=== PATIENT | male | born 1995 | race Caucasian/White ===

== ENCOUNTER 2019-12-05 21:04 | Emergency (ER) | payer OTHER, SELFPAY ==
[2019-12-05 21:39] VITALS: BP 140/86; BP 154/100; PULSE 106; PULSE 115; RESP 18; TEMP 37; O2SAT 96; O2SAT 98; BMI 29.9
--- NOTE | 2019-12-05 22:16 | PC.NURSE ---
Patient in hallway wandering, psychotic, self dialoguing, reporting he is unsafe here, fixated on [place], religiously occupied. Patient is hydrating well and eating well. Will continue to monitor.
[2019-12-05 22:54] LABS: Amphetamine Screen Urine Not Detected (Not Detect); Barbiturates, Urine Not Detected (Not Detect); Benzodiazepines Screen Urine Not Detected (Not Detect); Cannabinoid Screen Urine Not Detected (Not Detect); Cocaine Screen Urine Not Detected (Not Detect); Opiate Screen Urine Not Detected (Not Detect); Phencyclidine Screen Urine Not Detected (Not Detect)
[2019-12-05 23:50] VITALS: BP 154/102; PULSE 118; RESP 17; TEMP 36.3; O2SAT 97
[2019-12-06] VITALS (7 sets, daily range): BP systolic 135–172; BP diastolic 89–102; PULSE 93–116; RESP 15–20; TEMP 36.1–37; O2SAT 95–99
--- NOTE | 2019-12-06 00:01 | ED_ITS ---
HPI - Psych General Chief Complaint: Psychiatric Symptoms Stated Complaint: CRISIS Time Seen by Provider: 12/05/19 22:54 Source: patient and RN notes reviewed Mode of arrival: EMS Limitations: no limitations History of Present Illness HPI Narrative: patient brought in to the ED for psych evaluation. Patient is extremity psychotic, and preoccupied with himself. Patient having conversation with himself. Patient himself admits to being paranoid and very anxious. Patient denies any suicidal ideation. MD complaint: feels depressed and anxiety Related Data Home Medications Medication Instructions Recorded Confirmed Depakote ER 750 mg PO BID 12/05/19 12/06/19 diphenhydramine HCl [Banophen] 50 mg PO BEDTIME 12/05/19 12/06/19 haloperidol 1 tab PO BEDTIME 12/05/19 12/05/19 hydroxyzine pamoate 1 cap PO Q6H PRN 12/05/19 12/05/19 Allergies Allergy/AdvReac Type Severity Reaction Status Date / Time No Known Allergies Allergy Verified 12/05/19 21:45 [No Known Allergies*] Review of Systems Review of Systems: Yes all other systems are reviewed and are negative Cardiovascular: Cardiovascular: Reports no additional cardiovascular complaints, Denies Abdominal Cramping after Meds, Denies chest pain, Denies chest pain at rest, Denies lightheadedness, Denies dyspnea, Denies dyspnea on exertion, Denies orthopnea and Denies paroxysmal nocturnal dyspnea Respiratory: Respiratory: Reports as per HPI, Reports no additional respiratory complaints, Denies no additional respiratory complaints, Denies change in phlegm color, Denies chest congestion, Denies cough, Denies hemoptysis, Denies excessive phlegm production, Denies pain on inspiration, Denies pain with cough, Denies dyspnea and Denies dyspnea on exertion Gastrointestinal: Gastrointestinal: Reports as per HPI, Reports no additional gastrointestinal complaints, Denies abdominal pain, Denies belching, Denies melena, Denies bloating, Denies hematochezia, Denies change in bowel habits, Denies change in stool character, Denies excessive flatus and Denies diarrhea Psychiatric: Psychiatric: Reports anxiety, Reports depression and Reports paranoia PMFSH Social History Social History Advance Directives: No Advance Directives Information Provided: Yes Physical Exam Vital Signs and I&O and Narrative: Vital Signs and I&O: Vital Signs Temp 97.3 F 12/05/19 23:50 Pulse 118 H 12/05/19 23:50 Resp 17 12/06/19 01:40 BP 154/102 H 12/05/19 23:50 Pulse Ox 97 12/05/19 23:50 Intake & Output 12/05/19 12/05/19 12/06/19 06:59 18:59 06:59 Weight 81.647 kg Body Mass Index 29.9 Const: General: cooperative, healthy appearing and comfortable HENMT: Head: Yes normal to inspection Eyes: General: appearance normal, both eyes and all related structures Chest: Chest palpation & inspection: normal inspection of the chest, normal palpation of entire chest wall, normal inspection of the chest and no crepitus Resp: Effort & Inspection: normal respiratory effort, able to speak in complete sentences, normal respiratory pattern, no audible wheezes, no cough, no grunting, not labored, no segmental paradox chest wall movement and no stridor Auscultation: clear to auscultation bilaterally, no crackles, no rales, no rhonchi, no wheezes and breath sounds present Cardio: Jugular venous distension: no JVD Heart sounds: S1 normal heart s ound present and S2 normal heart sound present GI: Inspection: Yes normal to inspection, No abdominal wall ecchymosis, No Abdominal wall edema, No distended, No incision, No Abdominal panniculus present , No obesity and No scaphoid Palpation (GI): not soft, not firm, nontender, no guarding and not rigid Percussion: Yes normal to percussion Psych: Affect: Anxious affect present Thought process: Flight of ideas present Thought content: Paranoid delusions present and Depressive thoughts present Insight: Limited insight present (Psych) Judgement: Limited judgement present (Psych) Course Course Course Narrative: Patient appears to be in a psychotic state. Will order basic labs, urine, and BHN evaluation placed. Reevaluation(s) Reevaluation #1: patient will have [facility] evaluation in the morning. Awaiting for labs. Patient refused to give labs during the night and states he rather until in the morning MDM - Psych MDM Narrative Medical decision making narrative: patient awaiting BHN evaluation morning. Patient will have labs drawn the morning. Case signed out to Dr. Ramos Lab Data Labs: Lab Results 12/05/19 Range/Units 22:12 Urine Opiates Screen Not Detected (Not Detect) Ur Barbiturates Screen Not Detected (Not Detect) Ur Phencyclidine Scrn Not Detected (Not Detect) Ur Amphetamines Screen Not Detected (Not Detect) U Benzodiazepines Scrn Not Detected (Not Detect) Urine Cocaine Screen Not Detected (Not Detect) U Marijuana (THC) Screen Not Detected (Not Detect) Discharge Plan Discharge Prescriptions: No Action Depakote ER 750 mg tablet 750 mg PO BID RF: 0 haloperidol 5 mg tablet 1 tab PO BEDTIME RF: 0 hydroxyzine pamoate 50 mg capsule 1 cap PO Q6H PRN (Reason: anxiety) RF: 0 diphenhydramine HCl [Banophen] 50 mg Capsule 50 mg PO BEDTIME RF: 0
[2019-12-06] MEDS: LORazepam 1 MG TABLET 2 MG PO (00:20)
[2019-12-06] MEDS: haloperidoL 5 MG TABLET PO ×2 (00:21→20:46)
--- NOTE | 2019-12-06 00:33 | PC.NURSE ---
Patient med reconciliation completed. Medication administered as ordered/patient compliant but needed repeated prompting. Patient manic/self dialoguing/loud at time/disruptive/redirectable minimally. Will continue to monitor.
--- NOTE | 2019-12-06 04:46 | PC.NURSE ---
Patient just got up, delusional, and manic. Supported back to bed. Patient refused to have lab drawn. Will continue to monitor.
--- NOTE | 2019-12-06 07:20 | PC.NURSE ---
Report received. PT woke up this morning with complaints of feeling unsafe in the pod, very uneasy. Easily redirected back to his room to eat breakfast. PT went back to his room and laid in bed.
[2019-12-06] MEDS: Nicotine 14 MG PATCH.TD24 TRANSDERMA (10:08)
--- NOTE | 2019-12-06 10:11 | PC.NURSE ---
PT is walking around the unit. Calm and cooperative. Continues to state that he does not trust anyone and he does not feel safe here. Waiting to be seen by BHN.
--- NOTE | 2019-12-06 11:03 | PC.NURSE ---
PT currently speaking with another patient, pt appears paranoid stating that he thinks the bad people are coming for him and that everyone is against him. verbal support given. per provider ok to change vital signs to q6
--- NOTE | 2019-12-06 13:08 | PC.NURSE ---
PT currently walking around unit, states that he needs to get outside and see beauty, pt repeats I have to be very careful here . Pt continues to decline lab work.
[2019-12-06] MEDS: hydrOXYzine HCL 50 MG TABLET PO (14:18)
[2019-12-06] MEDS: Nicotine Polacrilex 2 MG GUM BUCCAL (14:52)
--- NOTE | 2019-12-06 15:11 | PC.NURSE ---
PT is pacing around the unit. Calm and cooperative. No other complaints at this time.
--- NOTE | 2019-12-06 17:09 | PC.NURSE ---
PT is walking around the unit, calm and cooperative. No complaints at this time.
--- NOTE | 2019-12-06 19:55 | PC.NURSE ---
pt is calm and cooperative, pacing in the [place]arton, pt states he is worried about bed 1. provider in the pod and this rn requested ativan po at pt request on what works for him. pt states he just likes to walk. pt has a steady gait, skin pink warm and dry. vitals stable.
[2019-12-06] MEDS: Divalproex Sodium ER 250 MG TAB.ER.24H 750 MG PO (20:44)
[2019-12-06] MEDS: diphenhydrAMINE HCL 25 MG TABLET 50 MG PO (20:45)
--- NOTE | 2019-12-06 21:44 | PC.NURSE ---
pt has aggreed to having his blood work drawn at this time.
[2019-12-06 22:01] LABS: MANUAL DIFF FLAG NO
[2019-12-06 22:02] LABS: Basophils Percent Auto 0.3 % (0-2); Eosinophils Absolute Auto 0.1 X10*3/uL (0.0-0.4); Hematocrit 42.2 % (42-52); Hemoglobin 14.7 g/dl (14.0-18.0); Imm Gran Abs Auto 0.03 X10*3/uL (0.00-0.03); Imm Gran Pct Auto 0.3 % (0.0-0.4); Lymphocytes Absolute Auto 2.2 X10*3/uL (1.2-4.9); Lymphocytes Percent Auto 19.3 % (20-40); Mean Corpuscular HGB Conc 34.8 g/dl (31.0-36.0); Mean Corpuscular Hemoglobin 33.6 pg (27.0-33.0); Mean Corpuscular Volume 96.3 fL (80-98); Mean Platelet Volume 9.4 fL (9.4-12.4); Monocytes Percent Auto 8.5 % (2-11); Neutrophils Absolute Auto 8.1 X10*3/uL (2.0-8.3); Neutrophils Percent Auto 70.6 % (45-73); Platelet Count 360 X10*3/uL (160-400); Red Blood Count 4.38 X10*6/uL (4.60-5.80); Red Cell Distribution Width 11.1 % (11.0-16.0); White Blood Count 11.5 X10*3/uL (4.8-10.8)
[2019-12-06 22:26] LABS: Alanine Aminotransferase 45 U/L (0-40); Albumin Level 4.6 g/dL (3.5-5.0); Alkaline Phosphatase 70 U/L (39-117); Aspartate Amino Transferase 38 U/L (5-37); Bilirubin Direct 0.2 mg/dL (0.0-0.5); Bilirubin Total 0.6 mg/dL (0.0-1.0); Total Protein 7.4 g/dL (6.5-8.0)
[2019-12-06 22:27] LABS: Alanine Aminotransferase 44 U/L (0-40); Albumin Level 4.6 g/dL (3.5-5.0); Alkaline Phosphatase 70 U/L (39-117); Anion Gap 15 (12-20); Aspartate Amino Transferase 38 U/L (5-37); Bilirubin Total 0.6 mg/dL (0.0-1.0); Blood Urea Nitrogen 10 mg/dL (9-16); Calcium 9.7 mg/dL (8.4-10.2); Carbon Dioxide 26 mmol/L (22-29); Chloride 102 mmol/L (96-108); Creatinine Clr Calc Pharmacy 123.7; Estimated Glomerular Filt Rate > 60; Glucose Random 100 mg/dL (60-115); Potassium 4.5 mmol/l (3.3-5.1); Sodium 138 mmol/L (135-145); Total Protein 7.5 g/dL (6.5-8.0)
[2019-12-06 22:48] LABS: Valproate 42.9 mcg/mL (50.0-100.0)
[2019-12-07 00:06] VITALS: BP 136/76; PULSE 94; RESP 16; TEMP 36.4
--- NOTE | 2019-12-07 02:08 | PC.NURSE ---
pt states he smokes every day more than a pack a day. pt requesting megan gum.
[2019-12-07 02:15] VITALS: RESP 17
[2019-12-07] MEDS: Nicotine Polacrilex 2 MG GUM BUCCAL (02:57)
--- NOTE | 2019-12-07 02:59 | PC.NURSE ---
pt given hoang gum. pt is in his room tv on. lights off and trying to fall asleep
[2019-12-07 05:05] VITALS: RESP 15
--- NOTE | 2019-12-07 06:14 | PC.NURSE ---
pt slept thur the night. pt treated with hoang gum for being a daily over one pack smoker a day. pt is calm and cooperative with staff. pt states he is a walker and likes to walk. when asked pt returned to his room when needed.
[2019-12-07 06:53] VITALS: BP 126/71; PULSE 91; RESP 18; TEMP 36.8
--- NOTE | 2019-12-07 07:11 | PC.NURSE ---
Report recieved. Pt currently sleeping, respirations even and unlabored, in no apparent distress. Pt remains inpatient bedsearch.
--- NOTE | 2019-12-07 09:10 | PC.NURSE ---
Pt periodically walking around unit, calm and cooperative. Pt appears paranoid, making statements that we all have to be careful because something bad is going to happen. pt given verbal reassurance.
[2019-12-07 09:54] VITALS: BP 139/74; PULSE 87; RESP 18; TEMP 36.9; O2SAT 99
[2019-12-07] MEDS: Divalproex Sodium ER 250 MG TAB.ER.24H 750 MG PO (10:03)
--- NOTE | 2019-12-07 10:15 | PC.NURSE ---
PT resting comfortably, denies complaints.
[2019-12-07] MEDS: Nicotine 14 MG PATCH.TD24 TRANSDERMA (11:32)
[2019-12-07] MEDS: hydrOXYzine HCL 50 MG TABLET PO (11:33)
[2019-12-07 12:00] VITALS: RESP 18
--- NOTE | 2019-12-07 12:03 | PC.NURSE ---
PT walking around unit, suspicious, requesting coffee then refusing coffee because he believes it was poisoned. verbal reassurance given.
[2019-12-07 12:31] LABS: SARS COV2 PCR INHOUSE NEGATIVE (Negative)
--- NOTE | 2019-12-07 12:54 | PC.NURSE ---
PT lab results/nurse notes requested by n to be faxed to [facility]. Information faxed as requested.
--- NOTE | 2019-12-07 13:44 | PC.NURSE ---
Per [facility] pt [facility]. Pt aware of admission.
--- NOTE | 2019-12-07 15:28 | PC.NURSE ---
Pt currently resting, calm and cooperative. Pt awaiting transfew to [facility].
== END 2019-12-07 15:55 ==
PROVIDERS: Physician Assistant; Emergency Provider Student in an Organized Health Care Education/Training Program; PCP Pediatrics
DX: F41.1 Generalized anxiety disorder (principal); F43.0 Acute stress reaction; F32.9 Major depressive disorder, single episode, unspecified
CPT/HCPCS: 36415; 80053; 80076; 80164; 80307; 85025; 87635; 99285; Q0163

== ENCOUNTER 2019-12-27 19:06 | Emergency (ER) | payer MEDICAID, SELFPAY ==
[2019-12-27 19:19] VITALS: BP 160/84; PULSE 90; RESP 18; TEMP 36.6; O2SAT 98; BMI 62.2
[2019-12-27 19:27] VITALS: BP 156/96; BP 159/100; PULSE 112; PULSE 116; RESP 18; TEMP 36.8; O2SAT 99; BMI 31.9
--- NOTE | 2019-12-27 19:31 | PC.NURSE ---
Pt searched and placed into hospital gown for safety. Pt on close observation with 1:1 observation.
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
--- NOTE | 2019-12-27 20:46 | PC.NURSE ---
PT REFUSED BLOODWORK BECAUSE HE NEEDS REST . RN AWARE
--- NOTE | 2019-12-27 20:50 | PC.NURSE ---
report to YAHAIRA Yao Pt to [facility] with security.
[2019-12-27 22:03] VITALS: BP 156/108; PULSE 91; RESP 20; TEMP 36.1; O2SAT 97
[2019-12-28] MEDS: diphenhydrAMINE HCL 25 MG TABLET 50 MG PO (00:52)
[2019-12-28] MEDS: LORazepam 1 MG TABLET 2 MG PO (00:52)
[2019-12-28] MEDS: Benztropine Mesylate 0.5 MG TABLET PO (00:53)
[2019-12-28] MEDS: Divalproex Sodium 500 MG TABLET.DR 1000 MG PO (00:56)
[2019-12-28 01:02] VITALS: BP 153/103; PULSE 97; RESP 17; TEMP 36.9; O2SAT 97
--- NOTE | 2019-12-28 01:05 | PC.NURSE ---
PT behavior is becoming increasingly agitated. Racing thoughts and increased anxiety. PT meds were reconciled and PT agreed to take them at this time.
--- NOTE | 2019-12-28 01:54 | PC.NURSE ---
PT compliant with COVID test but refused blood draws until the morning.
[2019-12-28] MEDS: HaloperidoL 5 MG TABLET 10 MG PO (03:08)
[2019-12-28 03:10] LABS: SARS COV2 PCR INHOUSE NEGATIVE (Negative)
--- NOTE | 2019-12-28 07:07 | PC.NURSE ---
Report received from YAHAIRA Yao. Pt resting, resp unlabored.
[2019-12-28] MEDS: Divalproex Sodium 250 MG TABLET.DR 750 MG PO (08:27)
--- NOTE | 2019-12-28 09:53 | PC.NURSE ---
Pt resting, resp unlabored. Awake briefly, requesting warm blanket, compliant w/ meds.
[2019-12-28 09:54] VITALS: BP 134/63; PULSE 74; RESP 18; TEMP 36.9; O2SAT 97
--- NOTE | 2019-12-28 10:07 | PC.NURSE ---
BHN in to evaluate
== END 2019-12-28 11:40 | disposition home or self-care (01) ==
PROVIDERS: Physician Assistant Medical; Emergency Provider Internal Medicine
DX: F31.4 Bipolar disorder, current episode depressed, severe, without psychotic features (principal); R45.851 Suicidal ideations; F17.200 Nicotine dependence, unspecified, uncomplicated; Z71.6 Tobacco abuse counseling
CPT/HCPCS: 87635; 99284; Q0163

== ENCOUNTER 2020-01-11 14:17 | Emergency (ER) | payer OTHER, SELFPAY ==
[2020-01-11 14:43] VITALS: BP 134/88; PULSE 73; RESP 20; TEMP 36.6; O2SAT 98
[2020-01-11 15:15] VITALS: BP 134/88; PULSE 73; RESP 20; TEMP 36.6; BMI 27.2
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
[2020-01-11 16:26] LABS: Amphetamine Screen Urine Not Detected (Not Detect); Barbiturates, Urine Not Detected (Not Detect); Benzodiazepines Screen Urine Not Detected (Not Detect); Cannabinoid Screen Urine Not Detected (Not Detect); Cocaine Screen Urine Not Detected (Not Detect); Opiate Screen Urine Not Detected (Not Detect); Phencyclidine Screen Urine Not Detected (Not Detect)
[2020-01-11 16:30] VITALS: BP 135/83; PULSE 78; RESP 20; TEMP 36.2; O2SAT 98
--- NOTE | 2020-01-11 19:09 | PC.NURSE ---
Pt alert, out on unit, affect even, awaiting bhn evaluation.
--- NOTE | 2020-01-11 19:11 | PC.NURSE ---
[facility] faxed at [phone]. currently calling to confirm receipt of fax.
[2020-01-11 19:22] LABS: Valproate 8.7 mcg/mL (50.0-100.0)
[2020-01-11] MEDS: HaloperidoL 5 MG TABLET 10 MG PO (20:39)
[2020-01-11] MEDS: diphenhydrAMINE HCL 25 MG TABLET 50 MG PO (20:39)
[2020-01-11 20:40] VITALS: BP 139/91; PULSE 75; RESP 20; TEMP 36.1; O2SAT 98
--- NOTE | 2020-01-12 00:58 | PC.NURSE ---
Patient in bed appears sleeping, BHN completed assessment, patient will be discharged in the morning, mother will come to give ride, will continue to monitor.
--- NOTE | 2020-01-12 04:21 | PC.NURSE ---
Patient in bed appears sleeping, no distress observed/reported, respiration +/=/non-labored bilaterally, will continue to monitor.
== END 2020-01-12 06:45 | disposition home or self-care (01) ==
PROVIDERS: Nurse Practitioner Family; Emergency Provider Emergency Medicine Emergency Medical Services; PCP Internal Medicine
DX: F33.1 Major depressive disorder, recurrent, moderate (principal); R45.851 Suicidal ideations; F17.200 Nicotine dependence, unspecified, uncomplicated; Z71.6 Tobacco abuse counseling; F12.90 Cannabis use, unspecified, uncomplicated; Z79.899 Other long term (current) drug therapy
CPT/HCPCS: 80164; 80307; 99284; Q0163

== ENCOUNTER 2020-01-13 22:11 | Emergency (ER) | payer OTHER, SELFPAY ==
[2020-01-13 22:20] VITALS: BP 136/78; BP 139/85; PULSE 70; PULSE 82; RESP 16; TEMP 36.5; O2SAT 99; BMI 27.0
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
--- NOTE | 2020-01-13 22:39 | ED_ITS ---
HPI - Psych General Chief Complaint: Psychiatric Symptoms Stated Complaint: crisis si Source: patient and EMS Mode of arrival: EMS Limitations: no limitations History of Present Illness HPI Narrative: 24-year-old male with significant psychiatric history presents via EMS under [place] [employer] with suicidal ideation. Report states that he threatened suicide with a knife in front of his family, held a knife to his neck and his arms threatening to cut himself. When family called 911 he ran out of the house and was obtained by police. Police and EMS at the scene feel that the patient is not in his right frame of mind secondary to suicidal ideation and attempt to self-harm. Upon presentation to the emergency department, patient stated that he was in a verbal altercation with his mother, states that his mother is unbearable and that he was just acting out because of the stress of the home environment. He does not report to have suicidal ideations at this time. He denies chest pain or pressure, palpitations, shortness breath, abdominal pain, abdominal distention, fevers, chills, nausea, vomiting, diarrhea, suicidal ideation, homicidal ideation, and auditory and visual hallucinations. MD complaint: suicidal ideation, feels depressed and anxiety Onset (ago): hour(s) ( Prior to arrival) Duration: constant History of same: Yes Relieving factors: none Exacerbating factors: other ( family altercation) Context: significant life stressor Associated psychiatric symptoms: depression and suicidal ideation Associated symptoms: denies other symptoms Treatments prior to arrival: placed on mental health hold Related Data Home Medications Medication Instructions Recorded Confirmed Depakote ER 750 mg PO BID 12/05/19 12/06/19 diphenhydramine HCl [Banophen] 50 mg PO BEDTIME 12/05/19 12/06/19 haloperidol 1 tab PO BEDTIME 12/05/19 12/05/19 hydroxyzine pamoate 1 cap PO Q6H PRN 12/05/19 12/05/19 benztropine 0.5 mg PO BID 12/28/19 12/28/19 diphenhydramine HCl [Banophen] 50 mg PO BEDTIME 12/28/19 01/11/20 divalproex 1,000 mg PO BEDTIME 12/28/19 12/28/19 divalproex 750 mg PO QAM 12/28/19 12/28/19 haloperidol [Haldol] 10 mg PO BEDTIME 12/28/19 01/11/20 hydroxyzine pamoate 50 mg PO Q6H PRN 12/28/19 01/11/20 Allergies Allergy/AdvReac Type Severity Reaction Status Date / Time No Known Allergies Allergy Verified 12/27/19 19:33 [No Known Allergies*] Review of Systems Review of Systems: Constitutional: No Fever, No Chills ENT/Mouth: No Ear Pain, No Nasal Congestion, No sore throat Eyes: No Eye Pain, No Swelling, No Redness Cardiovascular: No Chest Pain, No SOB Respiratory: No Cough, No Sputum, No Dyspnea Gastrointestinal: No Nausea, No Vomiting, No Diarrhea, No Hematochezia, No Melena Genitourinary: No Dysuria, No Urinary Frequency, No Hematuria Musculoskeletal: No Myalgias Skin: No Skin Lesions, No rash Neuro: No Weakness, No Numbness, No Paresthesias, No Dizziness, No Headache Psych: positive Anxiety, positive Depression, positive SI/HI Heme/Lymph: No Lymphadenopathy Endocrine: No Polyuria, No Polydipsia Yes all other systems are reviewed and are negative [facility] Past Medical History Attestation statement: The following information was validated with the patient. Medical History Alcohol abuse Bipolar 1 disorder Social History Social History Alcohol intake: current Alcohol intake frequency: a few times a week Smoking Status: Current every day smoker Substance Use Type: Marijuana Physical Exam Vital Signs: Vital Signs: Last Vital Signs Temp 97.7 F 01/13/20 22:20 Pulse 70 01/13/20 22:20 Resp 16 01/13/20 22:20 BP 139/85 01/13/20 22:20 Pulse Ox 99 01/13/20 22:20 Body Mass Index 27.0 Appearance: Alert. Oriented X3. No acute distress. Eyes: Pupils equal, round and reactive to light. ENT: Pharynx normal. Neck: Normal inspection. Neck supple. CVS: Normal heart rate and rhythm. Pulses normal. Respiratory: No respiratory distress. Breath sounds normal. Abdomen: Soft and nontender. Skin: Skin warm and dry. Normal skin color. Normal skin turgor. Extremities: No lower extremity edema. Neuro: No motor deficit. No sensory deficit. Course Course Course Narrative: 24-year-old male presents via EMS for suicidal ideation and threat of self-harm. He is under [place], has a significant psychiatric history and has presented to this emergency department several times this past week. During discussion patient states that he is no longer suicidal and that he was just reacting to a very stressful environment. RN spoke to family and heard 3rd hand that patient took all of his medications for the week, medications include benztropine, Depakote, Benadryl, Haldol and hydroxyzine. Patient denies this statement. At this time we will order N consult. Reevaluation(s) Reevaluation #1: sign-out to Dr. Ramos Time: 02:[address] [facility] - Psych Differential Diagnosis Differential diagnosis: Likely acute psychosis, suicidal ideation, bipolar disorder, depression, acute anxiety and mood disorder Restraints Face to Face Assessment: Face to Face Assessment: Current Situation: After assessment of the patient, a review of the pertinent medical record and a discussion with nursing staff, I feel the patient requires a restrain intervention. Reaction To: [] Medical Condition: [] Behavioral State: [] Continued Need: [] Lab Data Attestation: I reviewed the patient's lab results. Discharge Plan Discharge Clinical Impression: Acute psychosis, Suicidal ideation, Acute anxiety, Chronic schizophrenia Bipolar disorder Qualifiers: Active/Remission status: currently active Current bipolar episode type: depressed Current episode severity: moderate Qualified Code(s): F31.32 - Bipolar disorder, current episode depressed, moderate Depression Qualifiers: Depression Type: reactive depression Qualified Code(s): F32.9 - Major depressi ve disorder, single episode, unspecified Prescriptions: No Action Depakote ER 750 mg tablet 750 mg PO BID RF: 0 haloperidol 5 mg tablet 1 tab PO BEDTIME RF: 0 hydroxyzine pamoate 50 mg capsule 1 cap PO Q6H PRN (Reason: anxiety) RF: 0 diphenhydramine HCl [Banophen] 50 mg Capsule 50 mg PO BEDTIME RF: 0 benztropine 0.5 mg Tablet 0.5 mg PO BID RF: 0 diphenhydramine HCl [Banophen] 50 mg Capsule 50 mg PO BEDTIME RF: 0 divalproex 250 mg Tablet,Delayed Release (Dr/Ec) 750 mg PO QAM RF: 0 hydroxyzine pamoate 50 mg Capsule 50 mg PO Q6H PRN (Reason: Anxiety) RF: 0 divalproex 500 mg Tablet,Delayed Release (Dr/Ec) 1,000 mg PO BEDTIME RF: 0 haloperidol [Haldol] 10 mg Tablet 10 mg PO BEDTIME RF: 0
--- NOTE | 2020-01-13 23:48 | PC.NURSE ---
pt is resting in bed calm and cooperative.
[2020-01-14 02:53] VITALS: BP 117/85; RESP 66
[2020-01-14 04:00] VITALS: BP 117/85; PULSE 70; RESP 18; TEMP 36.5
--- NOTE | 2020-01-14 05:08 | PC.NURSE ---
Pt is talking to [facility] on the phone
--- NOTE | 2020-01-14 05:39 | PC.NURSE ---
Bhn will call with an update.
--- NOTE | 2020-01-14 07:24 | PC.NURSE ---
pt sleeping at this time. awaiting n to clear pt to go home.
== END 2020-01-14 09:02 | disposition home or self-care (01) ==
PROVIDERS: Emergency Provider Student in an Organized Health Care Education/Training Program
DX: F33.1 Major depressive disorder, recurrent, moderate (principal); R45.851 Suicidal ideations; R45.850 Homicidal ideations; F41.1 Generalized anxiety disorder; F43.0 Acute stress reaction; F20.9 Schizophrenia, unspecified; F17.200 Nicotine dependence, unspecified, uncomplicated; Z71.6 Tobacco abuse counseling; Z79.899 Other long term (current) drug therapy
CPT/HCPCS: 99284

== ENCOUNTER 2020-02-12 10:36 | Outpatient (REF) | payer OTHER, MEDICAID, SELFPAY | END 2020-02-12 10:37 | disposition home or self-care (01) | LOC: HO.LAB 10:36 | PROVIDERS: Visit Provider Internal Medicine | DX: Z20.828 Contact with and (suspected) exposure to other viral communicable diseases (principal) | CPT/HCPCS: C9803; U0003 ==

== ENCOUNTER 2020-02-20 06:34 | Emergency (ER) | payer OTHER, SELFPAY ==
[2020-02-20 06:41] VITALS: BP 148/108; PULSE 101; RESP 18; TEMP 36.2; O2SAT 98; BMI 24.3
--- NOTE | 2020-02-20 06:41 | ED_ITS ---
HPI - Psych General Chief Complaint: Psychiatric Symptoms Stated Complaint: crisis Time Seen by Provider: 02/20/20 06:39 Source: patient and EMS Mode of arrival: EMS Limitations: no limitations History of Present Illness MD complaint: feels depressed, anxiety and other (paranoid, worried people are going to kill him) Onset (ago): day(s) (3) Duration: constant History of same: Yes Relieving factors: none Exacerbating factors: none Context: not taking psychiatric medications Associated psychiatric symptoms: depression, racing thoughts and delusions Associated symptoms: denies other symptoms Treatments prior to arrival: none Related Data Home Medications Medication Instructions Recorded Confirmed Depakote ER 750 mg PO BID 12/05/19 12/06/19 diphenhydramine HCl [Banophen] 50 mg PO BEDTIME 12/05/19 12/06/19 haloperidol 1 tab PO BEDTIME 12/05/19 12/05/19 hydroxyzine pamoate 1 cap PO Q6H PRN 12/05/19 12/05/19 benztropine 0.5 mg PO BID 12/28/19 12/28/19 diphenhydramine HCl [Banophen] 50 mg PO BEDTIME 12/28/19 01/11/20 divalproex 1,000 mg PO BEDTIME 12/28/19 12/28/19 divalproex 750 mg PO QAM 12/28/19 12/28/19 haloperidol [Haldol] 10 mg PO BEDTIME 12/28/19 01/11/20 hydroxyzine pamoate 50 mg PO Q6H PRN 12/28/19 01/11/20 Allergies Allergy/AdvReac Type Severity Reaction Status Date / Time No Known Allergies Allergy Verified 12/27/19 19:33 [No Known Allergies*] Review of Systems Review of Systems: Constitutional : No Fever, No Chills ENT/Mouth : No Ear Pain, No Nasal Congestion, No sore throat Eyes: No Eye Pain, No Swelling, No Redness Cardiovascular : No Chest Pain, No SOB Respiratory : No Cough, No Sputum, No Dyspnea Gastrointestinal : No Nausea, No Vomiting, No Diarrhea, No Hematochezia, No Me eric Genitourinary : No Dysuria, No Urinary Frequency, No Hematuria Musculoskeletal : No Myalgias Skin : No Skin Lesions, No rash Neuro : No Weakness, No Numbness, No Paresthesias, No Dizziness, No Headache Psych : positive Anxiety, positive Depression, no SI/HI, + delusions, + paranoid Heme/Lymph: No Lymphadenopathy Endocrine : No Polyuria, No Polydipsia All other systems reviewed and are negative [facility] Past Medical History Attestation statement: The following information was validated with the patient. Medical History Alcohol abuse Bipolar 1 disorder Social History Social History Alcohol intake: current Alcohol intake frequency: a few times a week Alcohol type: beer Smoking Status: Current every day smoker Smoked in Last 30 Days: Yes Use of substances other than those prescribed or required for medical reasons: No Substance Use Type: Marijuana Advance Directives: No Advance Directives Information Provided: Yes Physical Exam Vital Signs: Vital Signs: Last Vital Signs Temp 97.1 F 02/20/20 06:41 Pulse 101 H 02/20/20 06:41 Resp 18 02/20/20 06:41 BP 148/108 H 02/20/20 06:41 Pulse Ox 98 02/20/20 06:41 Body Mass Index 24.3 Appearance: Alert. Oriented X3. No acute distress. Eyes: Pupils equal, round and reactive to light. ENT: Pharynx normal. Neck: Normal inspection. Neck supple. CVS: Normal heart rate and rhythm. Pulses normal. Respiratory: No respiratory distress. Breath sounds normal. Abdomen: Soft and nontender. Skin: Skin warm and dry. Normal skin color. Normal skin turgor. Extremities: No lower extremity edema. No calf ttp Neuro: Oriented X 3. No motor deficit. No sensory deficit. CN 2 - 12 intact Psych: anxious, depressed, I think someone is going to kill me. Denies SI/HI Course Course Course Narrative: signed out to oncoming provider pending N MDM - Psych MDM Narrative Medical decision making narrative: 24 yo male with bipolar not taking medications here feeling manic, anxious, panicking that someone is going to kill him, states he isn't safe, no SI, will need labs, [facility] consult Lab Data Result diagrams: 02/20/20 08:09 02/20/20 08:09 Labs: Lab Results 02/20/20 02/20/20 02/20/20 Range/Units 08:09 08:09 08:09 WBC 10.5 (4.8-10.8) X10*3/uL RBC 4.71 (4.60-5.80) X10*6/uL Hgb 15.4 (14.0-18.0) g/dl Hct 44.1 (42-52) % MCV 93.6 (80-98) fL MCH 32.7 (27.0-33.0) pg MCHC 34.9 (31.0-36.0) g/dl RDW 11.8 (11.0-16.0) % Plt Count 332 (160-400) X10*3/uL MPV 9.5 (9.4-12.4) fL Immature Gran % (Auto) 0.4 (0.0-0.4) % Neut % (Auto) 69.4 (45-73) % Lymph % (Auto) 20.6 (20-40) % Foster % (Auto) 8.9 (2-11) % Eos % (Auto) 0.3 (0-4) % Baso % (Auto) 0.4 (0-2) % Lymph # (Auto) 2.2 (1.2-4.9) X10*3/uL Foster # (Auto) 0.9 (0.1-1.2) X10*3/uL Eos # (Auto) 0.0 (0.0-0.4) X10*3/uL Baso # (Auto) 0.0 (0.0-0.2) X10*3/uL Abs Immat Gran (auto) 0.04 H (0.00-0.03) X10*3/uL Absolute Neuts (auto) 7.3 (2.0-8.3) X10*3/uL Absolute Nucleated RBC 0.000 (0.0-0.012) X10*3/uL Nucleated RBC % (auto) 0.0 (0.0-0.2) /100WBC Sodium 133 L (135-145) mmol/L Potassium 4.2 (3.3-5.1) mmol/l Chloride 98 (96-108) mmol/L Carbon Dioxide 24 (22-29) mmol/L Anion Gap 15 (12-20) BUN 14 (9-16) mg/dL Creatinine 0.99 (0.5-1.4) mg/dL Estim Creat Clear Calc 109.3 Estimated GFR > 60 Random Glucose 108 (60-115) mg/dL Calcium 9.4 (8.4-10.2) mg/dL Total Bilirubin (0.0-1.0) mg/dL Direct Bilirubin (0.0-0.5) mg/dL AST (5-37) U/L ALT (0-40) U/L Alkaline Phosphatase (39-117) U/L Total Protein (6.5-8.0) g/dL Albumin (3.5-5.0) g/dL Urine Opiates Screen (Not Detect) Ur Barbiturates Screen (Not Detect) Ur Phencyclidine Scrn (Not Detect) Ur Amphetamines Screen (Not Detect) U Benzodiazepines Scrn (Not Detect) Urine Cocaine Screen (Not Detect) U Marijuana (THC) Screen (Not Detect) Ethyl Alcohol < 10 mg/dL 02/20/20 02/20/20 Range/Units 08:09 08:34 WBC (4.8-10.8) X10*3/uL RBC (4.60-5.80) X10*6/uL Hgb (14.0-18.0) g/dl Hct (42-52) % MCV (80-98) fL MCH (27.0-33.0) pg MCHC (31.0-36.0) g/dl RDW (11.0-16.0) % Plt Count (160-400) X10*3/uL MPV (9.4-12.4) fL Immature Gran % (Auto) (0.0-0.4) % Neut % (Auto) (45-73) % Lymph % (Auto) (20-40) % Foster % (Auto) (2-11) % Eos % (Auto) (0-4) % Baso % (Auto) (0-2) % Lymph # (Auto) (1.2-4.9) X10*3/uL Foster # (Auto) (0.1-1.2) X10*3/uL Eos # (Auto) (0.0-0.4) X10*3/uL Baso # (Auto) (0.0-0.2) X10*3/uL Abs Immat Gran (auto) (0.00-0.03) X10*3/uL Absolute Neuts (auto) (2.0-8.3) X10*3/uL Absolute Nucleated RBC (0.0-0.012) X10*3/uL Nucleated RBC % (auto) (0.0-0.2) /100WBC Sodium (135-145) mmol/L Potassium (3.3-5.1) mmol/l Chloride (96-108) mmol/L Carbon Dioxide (22-29) mmol/L Anion Gap (12-20) BUN (9-16) mg/dL Creatinine (0.5-1.4) mg/dL Estim Creat Clear Calc Estimated GFR Random Glucose (60-115) mg/dL Calcium (8.4-10.2) mg/dL Total Bilirubin 1.9 H (0.0-1.0) mg/dL Direct Bilirubin 0.6 H (0.0-0.5) mg/dL AST 30 (5-37) U/L ALT 25 (0-40) U/L Alkaline Phosphatase 75 (39-117) U/L Total Protein 8.1 H (6.5-8.0) g/dL Albumin 4.9 (3.5-5.0) g/dL Urine Opiates Screen Not Detected (Not Detect) Ur Barbiturates Screen Not Detected (Not Detect) Ur Phencyclidine Scrn Not Detected (Not Detect) Ur Amphetamines Screen Not Detected (Not Detect) U Benzodiazepines Scrn Not Detected (Not Detect) Urine Cocaine Screen Not Detected (Not Detect) U Marijuana (THC) Screen POSITIVE H (Not Detect) Ethyl Alcohol mg/dL Discharge Plan Discharge Clinical Impression: Acute anxiety Prescriptions: No Action Depakote ER 750 mg tablet 750 mg PO BID RF: 0 haloperidol 5 mg tablet 1 tab PO BEDTIME RF: 0 hydroxyzine pamoate 50 mg capsule 1 cap PO Q6H PRN (Reason: anxiety) RF: 0 diphenhydramine HCl [Banophen] 50 mg Capsule 50 mg PO BEDTIME RF: 0 benztropine 0.5 mg Tablet 0.5 mg PO BID RF: 0 diphenhydramine HCl [Banophen] 50 mg Capsule 50 mg PO BEDTIME RF: 0 divalproex 250 mg Tablet,Delayed Release (Dr/Ec) 750 mg PO QAM RF: 0 hydroxyzine pamoate 50 mg Capsule 50 mg PO Q6H PRN (Reason: Anxiety) RF: 0 divalproex 500 mg Tablet,Delayed Release (Dr/Ec) 1,000 mg PO BEDTIME RF: 0 haloperidol [Haldol] 10 mg Tablet 10 mg PO BEDTIME RF: 0
[2020-02-20] MEDS: LORazepam 1 MG TABLET PO (07:17)
[2020-02-20 08:17] LABS: Basophils Percent Auto 0.4 % (0-2); Eosinophils Percent Auto 0.3 % (0-4); Hematocrit 44.1 % (42-52); Hemoglobin 15.4 g/dl (14.0-18.0); Imm Gran Abs Auto 0.04 X10*3/uL (0.00-0.03); Imm Gran Pct Auto 0.4 % (0.0-0.4); Lymphocytes Absolute Auto 2.2 X10*3/uL (1.2-4.9); Lymphocytes Percent Auto 20.6 % (20-40); Mean Corpuscular HGB Conc 34.9 g/dl (31.0-36.0); Mean Corpuscular Hemoglobin 32.7 pg (27.0-33.0); Mean Corpuscular Volume 93.6 fL (80-98); Mean Platelet Volume 9.5 fL (9.4-12.4); Monocytes Absolute Auto 0.9 X10*3/uL (0.1-1.2); Monocytes Percent Auto 8.9 % (2-11); Neutrophils Absolute Auto 7.3 X10*3/uL (2.0-8.3); Neutrophils Percent Auto 69.4 % (45-73); Platelet Count 332 X10*3/uL (160-400); Red Blood Count 4.71 X10*6/uL (4.60-5.80); Red Cell Distribution Width 11.8 % (11.0-16.0); White Blood Count 10.5 X10*3/uL (4.8-10.8)
--- NOTE | 2020-02-20 08:17 | PC.NURSE ---
pt pacing up and down pod, stating that god and the devil are talking to him pt struggling with voices in his head. Ativan given this morning. able to obtain lab work. Faxed to [facility].
[2020-02-20 08:19] LABS: MANUAL DIFF FLAG NO
[2020-02-20 08:38] LABS: Ethanol < 10 mg/dL
[2020-02-20 08:39] LABS: Anion Gap 15 (12-20); Blood Urea Nitrogen 14 mg/dL (9-16); Calcium 9.4 mg/dL (8.4-10.2); Carbon Dioxide 24 mmol/L (22-29); Chloride 98 mmol/L (96-108); Creatinine Clr Calc Pharmacy 109.3; Estimated Glomerular Filt Rate > 60; Glucose Random 108 mg/dL (60-115); Potassium 4.2 mmol/l (3.3-5.1); Sodium 133 mmol/L (135-145)
[2020-02-20 08:40] LABS: Alanine Aminotransferase 25 U/L (0-40); Albumin Level 4.9 g/dL (3.5-5.0); Alkaline Phosphatase 75 U/L (39-117); Aspartate Amino Transferase 30 U/L (5-37); Bilirubin Direct 0.6 mg/dL (0.0-0.5); Bilirubin Total 1.9 mg/dL (0.0-1.0); Total Protein 8.1 g/dL (6.5-8.0)
[2020-02-20 09:16] LABS: Amphetamine Screen Urine Not Detected (Not Detect); Barbiturates, Urine Not Detected (Not Detect); Benzodiazepines Screen Urine Not Detected (Not Detect); Cannabinoid Screen Urine POSITIVE (Not Detect); Cocaine Screen Urine Not Detected (Not Detect); Opiate Screen Urine Not Detected (Not Detect); Phencyclidine Screen Urine Not Detected (Not Detect)
--- NOTE | 2020-02-20 10:33 | PC.NURSE ---
pt stating he wants to leave, expressed that he needs to speak with bhn, provider aware, will section if needed
--- NOTE | 2020-02-20 11:15 | PC.NURSE ---
Report received from YAHAIRA Josue. Patient asleep on bed at this time. Respirations regular and even. Skin PWD. No distress noted. Patient is awaiting N evaluation. Will continue to monitor.
--- NOTE | 2020-02-20 13:00 | PC.NURSE ---
Patient awake, calm, and cooperative. Eating lunch independently at this time. No distress noted. Called [facility] to find out an estimated arrival time. N stating that they have not received a fax on this patient. Went over patient information on phone and re-faxed to [facility]. [facility] reports they will not be able to evaluate patient until later today . Will continue to monitor.
--- NOTE | 2020-02-20 14:17 | PC.NURSE ---
Spoke with [facility] again to get a more accurate timeframe for patient evaluation. [facility] reports they do not have anyone available until next shift, they estimate [phone] for arrival time. Updated [facility] who will allow N to evaluate patient. Patient moving about pod and conversating with staff. Remains calm, cooperative, and in behavioral control.
--- NOTE | 2020-02-20 15:26 | PC.NURSE ---
Patient in hallway wandering, hyper-verbal with poor insight, no distress reported, patient reported he has been off medication for over a month, N called/notified that clinician is on the way to see the patient. Will continue to monitor.
--- NOTE | 2020-02-20 16:10 | PC.NURSE ---
Patient just got assessed by the N, no update so far, patient is in hallway, will continue to monitor.
== END 2020-02-20 17:19 | disposition home or self-care (01) ==
PROVIDERS: Emergency Provider Emergency Medicine
DX: F33.1 Major depressive disorder, recurrent, moderate (principal); R45.851 Suicidal ideations; F41.1 Generalized anxiety disorder; F43.0 Acute stress reaction; F17.200 Nicotine dependence, unspecified, uncomplicated; Z71.6 Tobacco abuse counseling; Z79.899 Other long term (current) drug therapy
CPT/HCPCS: 36415; 80048; 80076; 80307; 80320; 85025; 99284

== ENCOUNTER 2021-07-16 22:12 | Emergency (ER) | payer MEDICAID, SELFPAY ==
--- NOTE | ~2021-07-16 | XR_ITS ---
EXAMINATION: XR CHEST CLINICAL INFORMATION: Leukocytosis COMPARISON: None TECHNIQUE: Frontal view of the chest was obtained. FINDINGS: The lungs are well expanded. There is no focal consolidation, edema, or effusion. No pneumothorax. The cardiomediastinal silhouette is within normal limits. No acute osseous abnormality. XR/XR chest 1V IMPRESSION: Clear lungs.
[2021-07-16 22:28] VITALS: BP 161/102; PULSE 114; RESP 20; TEMP 37.2; O2SAT 95; BMI 28.5
[2021-07-16 22:52] LABS: Amphetamine Screen Urine Not Detected (Not Detect); Barbiturates, Urine Not Detected (Not Detect); Benzodiazepines Screen Urine Not Detected (Not Detect); Cannabinoid Screen Urine POSITIVE (Not Detect); Cocaine Screen Urine Not Detected (Not Detect); Fentanyl, urine Not Detected (Not Detect); Opiate Screen Urine Not Detected (Not Detect); Phencyclidine Screen Urine Not Detected (Not Detect)
[2021-07-16 22:57] LABS: Basophils Absolute Auto 0.1 X10*3/uL (0.0-0.2); Basophils Percent Auto 0.3 % (0-2); Eosinophils Percent Auto 0.2 % (0-4); Hematocrit 43.2 % (42.0-52.0); Hemoglobin 15.6 g/dl (14.0-18.0); Imm Gran Abs Auto 0.12 X10*3/uL (0.00-0.03); Imm Gran Pct Auto 0.6 % (0.0-0.4); Lymphocytes Absolute Auto 1.5 X10*3/uL (1.2-4.9); Lymphocytes Percent Auto 7.2 % (20-40); MANUAL DIFF FLAG SCAN; Mean Corpuscular HGB Conc 36.1 g/dl (31.0-36.0); Mean Corpuscular Hemoglobin 34.4 pg (27.0-33.0); Mean Corpuscular Volume 95.2 fL (80.0-98.0); Mean Platelet Volume 9.3 fL (9.4-12.4); Monocytes Absolute Auto 1.6 X10*3/uL (0.1-1.2); Monocytes Percent Auto 7.4 % (2-11); Neutrophils Absolute Auto 17.6 x10*3/uL (2.0-8.3); Neutrophils Percent Auto 84.3 % (45-73); Platelet Count 296 X10*3/uL (160-400); Red Blood Count 4.54 X10*6/uL (4.60-5.80); Red Cell Distribution Width 11.8 % (11.0-16.0); SCAN SMEAR FLAG 1; White Blood Count 20.8 X10*3/uL (4.8-10.8)
[2021-07-16 23:06] LABS: Ethanol < 10 mg/dL
[2021-07-16 23:10] LABS: Anion Gap 14 (12-20); Blood Urea Nitrogen 6 mg/dL (9-16); Calcium 9.7 mg/dL (8.4-10.2); Carbon Dioxide 21 mmol/L (22-29); Chloride 104 mmol/L (96-108); Creatinine Clr Calc Pharmacy 104.2; Estimated Glomerular Filt Rate > 60; Glucose Random 101 mg/dL (60-115); Potassium 3.8 mmol/L (3.3-5.1); Sodium 135 mmol/L (135-145)
[2021-07-16 23:13] LABS: COVID-19 Test Negative (Negative); IDNOW Serial# 9DB6401D
[2021-07-16 23:13] LABS: Valproate < 2.0 mcg/mL (50.0-100.0)
[2021-07-16 23:15] LABS: SLIDE REVIEW VERIFIED
[2021-07-16] MEDS: HaloperidoL 5 MG TABLET PO (23:20)
[2021-07-16] MEDS: LORazepam 1 MG TABLET 2 MG PO (23:20)
[2021-07-16 23:21] LABS: Acetaminophen LAB < 1 mcg/mL (<30); Salicylate < 5.0 mg/dL (15-30)
--- NOTE | 2021-07-16 23:38 | ED.PSYCH ---
HPI - Psych General Chief Complaint: Psychiatric Symptoms Stated Complaint: Crisis Time Seen by Provider: 07/16/21 23:12 Source: patient Mode of arrival: ambulatory Limitations: no limitations History of Present Illness HPI Narrative: 26-year-old male history of alcohol abuse and bipolar disorder presenting to the emergency department with a chief complaint of ?I am having too many emotions ? I Wanna safe place . Patient tells me he called EMS because he felt like he needed help. He tells me he is hearing things but he tells me he is not sure why, he tells me he thinks people are going after him, and following him. He denies visual hallucinations and tactile hallucinations. Denies tobacco however tells me he smokes marijuana and drinks socially. He denies suicidal and homicidal ideation. No medical complaints. To note patient is not med compliant with his home medications. MD complaint: other (Paranoid) Onset (ago): day(s) (1) History of same: Yes Relieving factors: none Exacerbating factors: none Associated psychiatric symptoms: none Associated symptoms: denies other symptoms Treatments prior to arrival: none Related Data Home Medications Medication Instructions Recorded Confirmed diphenhydramine HCl 50 mg capsule 50 mg PO BEDTIME 12/05/19 07/17/21 (Banophen) benztropine 0.5 mg tablet 0.5 mg PO BID 12/28/19 07/17/21 divalproex 250 mg tablet,delayed 750 mg PO QAM 12/28/19 07/17/21 release divalproex 500 mg tablet,delayed 1,000 mg PO BEDTIME 12/28/19 07/17/21 release haloperidol 10 mg tablet 10 mg PO BEDTIME 12/28/19 07/17/21 hydroxyzine pamoate 50 mg capsule 50 mg PO Q6H PRN 12/28/19 07/17/21 Allergies Allergy/AdvReac Type Severity Reaction Status Date / Time No Known Allergies Allergy Verified 12/27/19 19:33 [No Known Allergies*] Review of Systems Review of Systems: Constitutional : No Fever, No Chills ENT/Mouth : No sore throat, No Rhinorrhea Eyes: No Eye Pain, No Swelling, No Redness Cardiovascular : No Chest Pain, No SOB Respiratory : No Cough, No Sputum Gastrointestinal : No Nausea, No Vomiting, No Diarrhea, No abdominal Pain Genitourinary : No Dysuria, No Hematuria Musculoskeletal : No joint pain, No Myalgias, No Joint Swelling Skin : No Skin Lesions, No rash Neuro : No Weakness, No Numbness Psych : No Anxiety, No Depression, No SI/HI/AH/VH All other systems reviewed and are negative Yes all other systems are reviewed and are negative [facility] Past Medical History Attestation statement: The following information was validated with the patient. Source: old records reviewed and nursing notes reviewed Medical History Alcohol abuse Bipolar 1 disorder Social History Social History Alcohol intake: current Alcohol intake frequency: a few times a week Alcohol type: beer Substance Use Type: Marijuana Advance Directives: No Advance Directives Information Provided: No Physical Exam Vital Signs: Vital Signs: Last Vital Signs Temp 99 F 07/16/21 22:28 Pulse 107 H 07/17/21 00:12 Resp 20 07/16/21 22:28 BP 154/84 H 07/17/21 00:12 Pulse Ox 95 07/16/21 22:28 BMI result Body Mass Index 28.5 Patient noted to be a hypertensive and tachycardic likely secondary to anxiety and agitation. Appearance: Alert.? Oriented X3.? No acute distress.? Patient appears paranoid. Head: Normocephalic, atraumatic, no step-offs or deformities Eyes: Pupils equal, round and reactive to light.? ENT: Pharynx normal.? Neck: Normal inspection.? Neck supple.? CVS: Normal heart rate and rhythm.? Pulses normal.? Respiratory: No respiratory distress.? Breath sounds normal.? Abdomen: Soft and nontender.? Skin: Skin warm and dry.? Normal skin color.? Normal skin turgor.? Extremities: No lower extremity edema.? No calf ttp. 5/5 strength to bilateral upper and lower extremities Neuro: Oriented X 3.? No motor deficit.? No sensory deficit. CN 2-12 intact Course Reevaluation(s) Reevaluation #1: Patient with a significant leukocytosis however he has no medical complaints will check a urine, chest CT since patient is not verbalizing any complaints. No acute electrolyte abnormalities requiring intervention.Drug tox positive for marijuana salicylates acetaminophen negative. Valproic level low. Ethanol negative. COVID negative. Pending UA and CXR Time: 01:25 Reevaluation #2: Patient placed on a Section 12. He will be an inpatient bed search. Time: 01:25 Reevaluation #3: Patient's urine negative. Chest x-ray negative. Will repeat CBC to ensure this is not lab error. Time: 01:59 Additional Reevaluation(s): 0228 Lipase pending. Patient with leukocytosis, he is not taking any prednisone or anything to elevate this lab value, no signs of cellulitis he is not complaining of any medical complaints, appears well comfortable non toxic. No signs of sepsis. I discussed these findings with Dr. Arias who tells me no need for further labs or imaging. Will continue to monitor patient. At this time patient will be placed in physician observation to allow more time to be placed in inpatient unit. At time observation was started patient common cooperative no acute distress. Will continue to monitor, gave report to Dr. Arias about his elevated white blood cell count, could be reactive due to agitation, anxiety, acute jazmine. MDM - Psych MDM Narrative Medical decision making narrative: 2229 26-year-old male presents with what appears to be paranoid at x1 day. No medical complaints Physical exam benign. Patient appears paranoid however. Plan at this time is medical clearance and evaluation by the behavioral health team. Medical Records Attestation: I reviewed the patient's medical records. Lab Data Attestation: I reviewed the patient's lab results. Result diagrams: 07/17/21 02:05 07/16/21 22:39 Labs: Lab Results 07/16/21 07/16/21 07/16/21 Range/Units 22:30 22:30 22:30 WBC (4.8-10.8) X10*3/uL RBC (4.60-5.80) X10*6/uL Hgb (14.0-18.0) g/dl Hct (42.0-52.0) % MCV (80.0-98.0) fL MCH (27.0-33.0) pg MCHC (31.0-36.0) g/dl RDW (11.0-16.0) % Plt Count (160-400) X10*3/uL MPV (9.4-12.4) fL Immature Gran % (Auto) (0.0-0.4) % Neut % (Auto) (45-73) % Lymph % (Auto) (20-40) % [place] % (Auto) (2-11) % Eos % (Auto) (0-4) % Baso % (Auto) (0-2) % Lymph # (Auto) (1.2-4.9) X10*3/uL [place] # (Auto) (0.1-1.2) X10*3/uL Eos # (Auto) (0.0-0.4) X10*3/uL Baso # (Auto) (0.0-0.2) X10*3/uL Abs Immat Gran (auto) (0.00-0.03) X10*3/uL Absolute Neuts (auto) (2.0-8.3) x10*3/uL Absolute Nucleated RBC (0.0-0.012) X10*3/uL Nucleated RBC % (auto) (0.0-0.2) /100WBC Smear Tech's Comments Sodium (135-145) mmol/L Potassium (3.3-5.1) mmol/L Chloride (96-108) mmol/L Carbon Dioxide (22-29) mmol/L Anion Gap (12-20) BUN (9-16) mg/dL Creatinine (0.5-1.4) mg/dL Estim Creat Clear Calc Estimated GFR Random Glucose (60-115) mg/dL Calcium (8.4-10.2) mg/dL Urine Color YELLOW Urine Appearance CLEAR Urine pH 6.0 (5.0-8.0) Ur Specific [place] 1.015 (1.005-1.025) Urine Protein NEG (NEG-TRACE) MG/DL Urine Glucose (UA) NEG (NEG) MG/DL Urine Ketones NEG (NEG) MG/DL Urine Blood TRACE (NEG) Urine Nitrite NEG (NEG) Ur Leukocyte Esterase NEG (NEG) Urine RBC 0-2 (0) /HPF Urine WBC 0-2 (0-4) /HPF Ur Squamous Epith Cells TRACE /LPF Urine Bacteria NONE /LPF Salicylates (15-30) mg/dL Urine Opiates Screen Not Detected (Not Detect) Urine Fentanyl Screen Not Detected (Not Detect) Acetaminophen (<30) mcg/mL Ur Barbiturates Screen Not Detected (Not Detect) Valproic Acid (50.0-100.0) mcg/mL Ur Phencyclidine Scrn Not Detected (Not Detect) Ur Amphetamines Screen Not Detected (Not Detect) U Benzodiazepines Scrn Not Detected (Not Detect) Urine Cocaine Screen Not Detected (Not Detect) U Marijuana (THC) Screen POSITIVE H (Not Detect) Ethyl Alcohol mg/dL COVID-19 (LESLI) Negative (Negative) COVID-19 Clin Com See Note 07/16/21 07/16/21 07/16/21 Range/Units 22:39 22:39 22:39 WBC 20.8 H (4.8-10.8) X10*3/uL RBC 4.54 L (4.60-5.80) X10*6/uL Hgb 15.6 (14.0-18.0) g/dl Hct 43.2 (42.0-52.0) % MCV 95.2 (80.0-98.0) fL MCH 34.4 H (27.0-33.0) pg MCHC 36.1 H (31.0-36.0) g/dl RDW 11.8 (11.0-16.0) % Plt Count 296 (160-400) X10*3/uL MPV 9.3 L (9.4-12.4) fL Immature Gran % (Auto) 0.6 H (0.0-0.4) % Neut % (Auto) 84.3 H (45-73) % Lymph % (Auto) 7.2 L (20-40) % [place] % (Auto) 7.4 (2-11) % Eos % (Auto) 0.2 (0-4) % Baso % (Auto) 0.3 (0-2) % Lymph # (Auto) 1.5 (1.2-4.9) X10*3/uL [place] # (Auto) 1.6 H (0.1-1.2) X10*3/uL Eos # (Auto) 0.0 (0.0-0.4) X10*3/uL Baso # (Auto) 0.1 (0.0-0.2) X10*3/uL Abs Immat Gran (auto) 0.12 H (0.00-0.03) X10*3/uL Absolute Neuts (auto) 17.6 H (2.0-8.3) x10*3/uL Absolute Nucleated RBC 0.000 (0.0-0.012) X10*3/uL Nucleated RBC % (auto) 0.0 (0.0-0.2) /100WBC Smear Tech's Comments VERIFIED Sodium 135 (135-145) mmol/L Potassium 3.8 (3.3-5.1) mmol/L Chloride 104 (96-108) mmol/L Carbon Dioxide 21 L (22-29) mmol/L Anion Gap 14 (12-20) BUN 6 L (9-16) mg/dL Creatinine 1.05 (0.5-1.4) mg/dL Estim Creat Clear Calc 104.2 Estimated GFR > 60 Random Glucose 101 (60-115) mg/dL Calcium 9.7 (8.4-10.2) mg/dL Urine Color Urine Appearance Urine pH (5.0-8.0) Ur Specific [place] (1.005-1.025) Urine Protein (NEG-TRACE) MG/DL Urine Glucose (UA) (NEG) MG/DL Urine Ketones (NEG) MG/DL Urine Blood (NEG) Urine Nitrite (NEG) Ur Leukocyte Esterase (NEG) Urine RBC (0) /HPF Urine WBC (0-4) /HPF Ur Squamous Epith Cells /LPF Urine Bacteria /LPF Salicylates < 5.0 L (15-30) mg/dL Urine Opiates Screen (Not Detect) Urine Fentanyl Screen (Not Detect) Acetaminophen < 1 (<30) mcg/mL Ur Barbiturates Screen (Not Detect) Valproic Acid (50.0-100.0) mcg/mL Ur Phencyclidine Scrn (Not Detect) Ur Amphetamines Screen (Not Detect) U Benzodiazepines Scrn (Not Detect) Urine Cocaine Screen (Not Detect) U Marijuana (THC) Screen (Not Detect) Ethyl Alcohol < 10 mg/dL COVID-19 (LESLI) (Negative) COVID-19 Clin Com 07/16/21 07/17/21 Range/Units 22:39 02:05 WBC 20.9 H (4.8-10.8) X10*3/uL RBC 4.46 L (4.60-5.80) X10*6/uL Hgb 15.3 (14.0-18.0) g/dl Hct 42.8 (42.0-52.0) % MCV 96.0 (80.0-98.0) fL MCH 34.3 H (27.0-33.0) pg MCHC 35.7 (31.0-36.0) g/dl RDW 11.9 (11.0-16.0) % Plt Count 281 (160-400) X10*3/uL MPV 9.2 L (9.4-12.4) fL Immature Gran % (Auto) (0.0-0.4) % Neut % (Auto) (45-73) % Lymph % (Auto) (20-40) % [place] % (Auto) (2-11) % Eos % (Auto) (0-4) % Baso % (Auto) (0-2) % Lymph # (Auto) (1.2-4.9) X10*3/uL [place] # (Auto) (0.1-1.2) X10*3/uL Eos # (Auto) (0.0-0.4) X10*3/uL Baso # (Auto) (0.0-0.2) X10*3/uL Abs Immat Gran (auto) (0.00-0.03) X10*3/uL Absolute Neuts (auto) (2.0-8.3) x10*3/uL Absolute Nucleated RBC (0.0-0.012) X10*3/uL Nucleated RBC % (auto) (0.0-0.2) /100WBC Smear Tech's Comments Sodium (135-145) mmol/L Potassium (3.3-5.1) mmol/L Chloride (96-108) mmol/L Carbon Dioxide (22-29) mmol/L Anion Gap (12-20) BUN (9-16) mg/dL Creatinine (0.5-1.4) mg/dL Estim Creat Clear Calc Estimated GFR Random Glucose (60-115) mg/dL Calcium (8.4-10.2) mg/dL Urine Color Urine Appearance Urine pH (5.0-8.0) Ur Specific [place] (1.005-1.025) Urine Protein (NEG-TRACE) MG/DL Urine Glucose (UA) (NEG) MG/DL Urine Ketones (NEG) MG/DL Urine Blood (NEG) Urine Nitrite (NEG) Ur Leukocyte Esterase (NEG) Urine RBC (0) /HPF Urine WBC (0-4) /HPF Ur Squamous Epith Cells /LPF Urine Bacteria /LPF Salicylates (15-30) mg/dL Urine Opiates Screen (Not Detect) Urine Fentanyl Screen (Not Detect) Acetaminophen (<30) mcg/mL Ur Barbiturates Screen (Not Detect) Valproic Acid < 2.0 L (50.0-100.0) mcg/mL Ur Phencyclidine Scrn (Not Detect) Ur Amphetamines Screen (Not Detect) U Benzodiazepines Scrn (Not Detect) Urine Cocaine Screen (Not Detect) U Marijuana (THC) Screen (Not Detect) Ethyl Alcohol mg/dL COVID-19 (LESLI) (Negative) COVID-19 Clin Com Critical Care Time Critical Care Time Critical Care Time: No Discharge Plan Discharge Clinical Impression: Acute psychosis, Leukocytosis Patient Disposition: Still a Patient Prescriptions: No Action diphenhydramine HCl [Banophen] 50 mg Capsule 50 mg PO BEDTIME 0RF benztropine 0.5 mg Tablet 0.5 mg PO BID 0RF divalproex 250 mg Tablet,Delayed Release (Dr/Ec) 750 mg PO QAM 0RF hydroxyzine pamoate 50 mg Capsule 50 mg PO Q6H PRN (Reason: Anxiety) 0RF divalproex 500 mg Tablet,Delayed Release (Dr/Ec) 1,000 mg PO BEDTIME 0RF haloperidol [Haldol] 10 mg Tablet 10 mg PO BEDTIME 0RF
[2021-07-17 00:12] VITALS: BP 154/84; PULSE 107
[2021-07-17 00:41] LABS: Appearance Urine CLEAR; Color Urine YELLOW; Glucose Urine UA NEG (NEG); Leukocyte Esterase Urine NEG (NEG); Nitrite Urine NEG (NEG); Specific Gravity - Urine 1.015 (1.005-1.025); UACC Culture Trigger NO; Urine Blood TRACE (NEG); Urine Ketones NEG (NEG); Urine Protein NEG (NEG-TRACE)
[2021-07-17 00:49] LABS: RBC Urine 0-2 /HPF (0); Squamous Epithelial Cell Urine TRACE /LPF; WBC Urine 0-2 /HPF (0-4)
[2021-07-17 02:12] LABS: Basophils Absolute Auto 0.1 X10*3/uL (0.0-0.2); Basophils Percent Auto 0.3 % (0-2); Eosinophils Absolute Auto 0.1 X10*3/uL (0.0-0.4); Eosinophils Percent Auto 0.2 % (0-4); Hematocrit 42.8 % (42.0-52.0); Hemoglobin 15.3 g/dl (14.0-18.0); Imm Gran Abs Auto 0.14 X10*3/uL (0.00-0.03); Imm Gran Pct Auto 0.7 % (0.0-0.4); Lymphocytes Absolute Auto 2.2 X10*3/uL (1.2-4.9); Lymphocytes Percent Auto 10.3 % (20-40); MANUAL DIFF FLAG SCAN; Mean Corpuscular HGB Conc 35.7 g/dl (31.0-36.0); Mean Corpuscular Hemoglobin 34.3 pg (27.0-33.0); Mean Platelet Volume 9.2 fL (9.4-12.4); Monocytes Absolute Auto 1.8 X10*3/uL (0.1-1.2); Monocytes Percent Auto 8.7 % (2-11); Neutrophils Absolute Auto 16.7 x10*3/uL (2.0-8.3); Neutrophils Percent Auto 79.8 % (45-73); Platelet Count 281 X10*3/uL (160-400); Red Blood Count 4.46 X10*6/uL (4.60-5.80); Red Cell Distribution Width 11.9 % (11.0-16.0); SCAN SMEAR FLAG 1; White Blood Count 20.9 X10*3/uL (4.8-10.8)
[2021-07-17 02:32] VITALS: BP 122/74; PULSE 78; RESP 15; TEMP 36.8; O2SAT 96
[2021-07-17 02:43] LABS: Lipase 24 U/L (8-78)
--- NOTE | 2021-07-17 07:13 | PC.NURSE ---
Patient slept through the night, no distress observed/reported during overnight shift, patient was restless at time of arrival administered Haldol 5 mg PO and Ativan 2 mg PO as ordered with + effect, disposition per [facility] is section 12 inpatient bed search, chest X-ray negative, WBC elevated drawn x 2 no new order at this time, will continue to monitor.
[2021-07-17 07:43] VITALS: BP 134/84; PULSE 97; RESP 18; TEMP 36.7; O2SAT 96
[2021-07-17 11:00] LABS: MANUAL DIFF FLAG NO
[2021-07-17 11:04] LABS: Basophils Percent Auto 0.3 % (0-2); Eosinophils Absolute Auto 0.1 X10*3/uL (0.0-0.4); Eosinophils Percent Auto 0.8 % (0-4); Hematocrit 44.2 % (42.0-52.0); Hemoglobin 15.5 g/dl (14.0-18.0); Imm Gran Pct Auto 0.9 % (0.0-0.4); Lymphocytes Absolute Auto 1.7 X10*3/uL (1.2-4.9); Lymphocytes Percent Auto 16.3 % (20-40); Mean Corpuscular HGB Conc 35.1 g/dl (31.0-36.0); Mean Corpuscular Volume 96.9 fL (80.0-98.0); Mean Platelet Volume 9.2 fL (9.4-12.4); Monocytes Absolute Auto 1.1 X10*3/uL (0.1-1.2); Monocytes Percent Auto 10.7 % (2-11); Neutrophils Absolute Auto 7.5 x10*3/uL (2.0-8.3); Platelet Count 298 X10*3/uL (160-400); Red Blood Count 4.56 X10*6/uL (4.60-5.80); Red Cell Distribution Width 11.9 % (11.0-16.0); White Blood Count 10.6 X10*3/uL (4.8-10.8)
[2021-07-17 11:17] LABS: C Reactive Protein 2.06 mg/dL (< or = 0.50)
[2021-07-17 11:38] LABS: Procalcitonin 0.03 ng/mL
[2021-07-17 11:55] LABS: Erythrocyte Sedimentation Rate 6 MM/HR (0-15)
--- NOTE | 2021-07-17 12:10 | PC.NURSE ---
Contact made by melodie maya [phone]. Permission given by patient to provide update. Acute decompensation noticed over 2 days- I'm woke, i've seen things Melodie endorsed, anxiety along with disorganized thinking. This individual is willing to pick the patient up should he be d/c
--- NOTE | 2021-07-17 12:36 | PC.NURSE ---
contact made to care team and provider. According to medical history, Pt has hx of etoh abuse. Etoh level was drawn upon admission and was negative. Due to flight of ideas it is unclear about time frame of last substance abuse. Concerns about Withdrawal expressed.
[2021-07-17 12:45] VITALS: BP 137/92; PULSE 107; RESP 18; TEMP 36.9; O2SAT 97
--- NOTE | 2021-07-17 12:50 | PC.NURSE ---
Contact made to care team: pt scored 5 on CIWA. Corina SYED from substance use evaluating
--- NOTE | 2021-07-17 13:15 | PC.NURSE ---
Pt being updated on status of admission by care team now.
--- NOTE | 2021-07-17 13:27 | MHC.RECOVRN ---
Met with pt in [facility] after RN expressed concerns regarding possible alcohol withdrawal. Pt pacing pod upon approach, willing and able to sit and talk with t/w. Pt reports drinking alcohol since 2019. Had been drinking vodka and then switched to [employer] Mnaju. Pt reports last drink was yesterday, total amount had was about 15 shots. Pt reports that amount has decreased over the last month, usual amount would be 15-20 shots daily. Pt also reports that a 750 mL bottle would last 2-3 days. Pt denies substances other than alcohol and marijuana. Pt denies ATS admissions, however, reports at age 22 having gone through alcohol withdrawal. Pt states I didn't know what was happening to me, I thought I was dying. I said goodbye to everyone. Nobody could tell me what was wrong with me. Pt currently anxious, slightly tachycardic, no upset stomach, no tremor, no sweat visible, no visual or tactile disturbances. Pt has the potential to experience alcohol withdrawal, discussed medications that could be used with pt to address both anxiety and withdrawal symptoms. Pt declines all medications. Pt will alert staff if more withdrawal symptoms occur. Discussed with provider and RN.
[2021-07-17 14:00] VITALS: RESP 20
--- NOTE | 2021-07-17 14:10 | PC.NURSE ---
Pt remains agitated and pacing in unit. Speech remains pressured. Pt educated to CIWA evaluation process. Upset regarding [facility] evaluation they always fucking do this to me. It's bullshit .
[2021-07-17] MEDS: Nicotine 21 MG PATCH.TD24 TRANSDERMA (14:16)
--- NOTE | 2021-07-17 14:21 | PC.NURSE ---
Per care team, pt does not qualify for section admission-Care team to let ED PA know.
[2021-07-17 14:44] VITALS: BP 153/92; PULSE 100; RESP 18; O2SAT 100
[2021-07-23 19:32] LABS: Calcitonin <2 pg/mL (<=10)
== END 2021-07-17 15:00 | disposition home or self-care (01) ==
PROVIDERS: Physician Assistant; Physician Assistant Medical; Emergency Provider Internal Medicine
DX: F23 Brief psychotic disorder (principal); D72.829 Elevated white blood cell count, unspecified; Z20.822 Contact with and (suspected) exposure to COVID-19; F25.0 Schizoaffective disorder, bipolar type; F17.200 Nicotine dependence, unspecified, uncomplicated; F12.90 Cannabis use, unspecified, uncomplicated; Z79.899 Other long term (current) drug therapy
CPT/HCPCS: 36415; 71045; 80048; 80143; 80164; 80179; 80307; 81001; 82077; 82308; 83690; 84145; 85025; 85652; 86140; 87635; 99284

== ENCOUNTER 2021-07-19 20:56 | Inpatient (IN) | payer OTHER, SELFPAY ==
--- NOTE | ~2021-07-19 | XR_ITS ---
EXAMINATION: XR ABDOMEN COMPLETE CLINICAL INDICATION: Flank pain. COMPARISON: Abdomen/pelvis CT from 04/26/2018 TECHNIQUE: 2 views of the abdomen. FINDINGS: Lung bases are normal. Bowel gas pattern is normal. No dilated bowel loops or pneumoperitoneum. Moderate amount of fecal material is present in the colon. There is no evidence of fecal impaction in the rectum. No radiographic evidence of renal or bladder calculi. Skeletal structures are unremarkable. XR/XR abdomen 3V IMPRESSION: * No acute radiographic abnormalities in the abdomen. No evidence of renal stones. * Moderate amount of fecal material is present in the nondilated colon.
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
[2021-07-19 21:01] VITALS: BP 178/105; PULSE 120; RESP 20; TEMP 37.6; O2SAT 99; BMI 28.2
[2021-07-19 22:01] LABS: COVID-19 Test Negative (Negative)
[2021-07-19] MEDS: LORazepam 1 MG TABLET 2 MG PO (22:36)
[2021-07-19 22:45] LABS: Amphetamine Screen Urine Not Detected (Not Detect); Barbiturates, Urine Not Detected (Not Detect); Benzodiazepines Screen Urine Not Detected (Not Detect); Cannabinoid Screen Urine Not Detected (Not Detect); Cocaine Screen Urine Not Detected (Not Detect); Fentanyl, urine Not Detected (Not Detect); Opiate Screen Urine Not Detected (Not Detect); Phencyclidine Screen Urine Not Detected (Not Detect)
[2021-07-20] MEDS: Nicotine Polacrilex 2 MG GUM BUCCAL ×3 (03:40→15:35)
[2021-07-20] MEDS: HaloperidoL 5 MG TABLET 10 MG PO ×2 (03:40→20:11)
--- NOTE | 2021-07-20 03:50 | PC.NURSE ---
patient wandering in pod, restless and anxious, haldol 10 mg PO administered as ordered, pending effect, will continue to monitor.
[2021-07-20] MEDS: LORazepam 1 MG TABLET 2 MG PO ×3 (05:27→20:12)
--- NOTE | 2021-07-20 05:31 | PC.NURSE ---
Administered Ativan 2 mg PO at 0530 per patient request for restlessness pending effect, patient is fully preoccupied/self dialoguing, awaiting bHN evaluation in the morning, will continue to monitor.
--- NOTE | 2021-07-20 07:04 | PC.NURSE ---
patient appears to remain asleep at present respirations are e4ven and unlabored patient appears in no distress
--- NOTE | 2021-07-20 07:05 | PC.NURSE ---
patient appears to remain asleep respirations are even and unlabored patient appears in no distress
[2021-07-20] MEDS: OLANZapine 5 MG TABLET 10 MG PO (12:16)
[2021-07-20 12:34] VITALS: BP 154/103; PULSE 80; O2SAT 99
--- NOTE | 2021-07-20 16:41 | PHA.MEDREC ---
Pharmacy Consult ? Medication Reconciliation Pharmacy has completed the medication reconciliation. SPOKE WITH PT WHO SAYS HE DOES NOT TAKE ANY MEDICATIONS. HE WAS NOT FAMILIAR WITH A MEDICATION NAME I ASKED ABOUT EITHER. THERE IS NO CLAIM HISTORY FOR DAILY MEDICATIOSN
--- NOTE | 2021-07-20 21:57 | PC.NURSE ---
[facility] called for med claim history, per pharmacist patient was on Haldol 10 mg bedtime, Depakote 750 mg QAM, and Cogentin 0.5 mg BID prescribed by Stacey Ventura on 12/19/2019, patient is currently not any medication, Haldol 10 mg and ativan 2 mg po administered for increasing restlessness pending effect, will continue to monitor.
[2021-07-21] MEDS: OLANZapine 10 MG VIAL IM (03:00)
--- NOTE | 2021-07-21 03:13 | PC.NURSE ---
Patient is struggling to fall sleep, patient had not slept in last 24 hours, repeated haldol/Ativan doses did not help him sleep, patient requesting stronger medication, provider notified/ordered Olanzapine 10 mg IM/administered as ordered at 0300/pending effect, patient showered after shot/currently in bed resting, since the medication was requested for comfort by the patient it is not a restraint per provider, patient is currently on close observation, will continue to monitor.
[2021-07-21] MEDS: Nicotine Polacrilex 2 MG GUM BUCCAL ×3 (06:17→16:02)
--- NOTE | 2021-07-21 06:29 | PC.NURSE ---
No effect from Olanzapine 10 mg IM administered at 0300 per patient request for sleep, awake whole shift, behavior non concerning at this time but may escalate, disposition per care tea, is section 12 inpatient bed search, VSS, medication compliant, med rec was discontinued by pharmacy, no past medication reference available, psych consult for med review ordered, VSS, will continue to monitor.
[2021-07-21 06:38] VITALS: BP 131/91; PULSE 70; RESP 16; TEMP 36.6; O2SAT 100
--- NOTE | 2021-07-21 07:16 | PC.NURSE ---
patient appears to remain asleep at present respirations are even and unlabored patient appears in no distress
[2021-07-21] MEDS: LORazepam 1 MG TABLET 2 MG PO ×3 (08:32→20:59)
[2021-07-21] MEDS: Acetaminophen 325 MG TABLET 650 MG PO (09:06)
[2021-07-21 09:38] VITALS: BP 122/78; PULSE 70; RESP 16; TEMP 36.8; O2SAT 99
[2021-07-21] MEDS: LORazepam 1 MG TABLET PO (10:08)
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
[2021-07-21] MEDS: Haloperidol Lactate 5 MG/ML VIAL IM (12:38)
[2021-07-21] MEDS: diphenhydrAMINE HCL 50 MG/ML VIAL IM (12:38)
[2021-07-21] MEDS: LORazepam 2 MG/ML VIAL IM (12:38)
[2021-07-21] MEDS: traZODone HCL 50 MG TABLET PO (20:59)
[2021-07-21] MEDS: OLANZapine ODT 10 MG TAB.RAPDIS TRANSLINGU (20:59)
[2021-07-21] MEDS: HaloperidoL 5 MG TABLET 10 MG PO (20:59)
[2021-07-21] MEDS: hydrOXYzine HCL 25 MG TABLET PO (20:59)
[2021-07-21 22:58] VITALS: BP 144/83; PULSE 74; RESP 16; TEMP 36.8; O2SAT 99
[2021-07-22] MEDS: HaloperidoL 5 MG TABLET 10 MG PO ×2 (01:01→05:12)
[2021-07-22] MEDS: Nicotine Polacrilex 2 MG GUM BUCCAL ×4 (01:39→21:49)
[2021-07-22 05:04] VITALS: BP 125/86; PULSE 68; RESP 16; TEMP 37.7; O2SAT 99
--- NOTE | 2021-07-22 06:21 | PC.NURSE ---
Patient slept hour and half through out the night, PRN Haldol 10 mg PO administered x 2, patient requires constant redirection but [id number], listened to music most part of the night, showered during overnight shift, medication compliant, pending M5 admission, VSS, will continue to monitor.
[2021-07-22 07:41] LABS: Estimated Average Glucose 91 mg/dL; Hemoglobin A1c % 4.8 %
[2021-07-22 07:43] LABS: Cholesterol 165 mg/dL; HDL Cholesterol 39 mg/dL; LDL Cholesterol Calculated 98 mg/dl; Magnesium 2.1 mg/dL (1.6-2.6); Triglycerides 144 mg/dL
[2021-07-22 08:04] LABS: Free T4 (Free Thyroxine) 1.28 ng/dL (0.71-1.85); Thyroid Stimulating Hormone 1.32 uIU/mL (0.32-4.0)
[2021-07-22 08:09] VITALS: BP 120/74; PULSE 82; RESP 14; TEMP 36.5; O2SAT 98
[2021-07-22] MEDS: OLANZapine ODT 10 MG TAB.RAPDIS TRANSLINGU ×2 (08:12→21:45)
[2021-07-22] MEDS: LORazepam 1 MG TABLET 2 MG PO ×4 (08:12→21:46)
[2021-07-22 08:25] LABS: Vitamin B12 483 pg/mL (200-900)
--- NOTE | 2021-07-22 10:00 | ECG_ITS ---
Test Reason : MEDICAL CLEARANCE Blood Pressure : / mmHG Vent. Rate : 070 BPM Atrial Rate : 070 BPM P-R Int : 138 ms QRS Dur : 082 ms QT Int : 394 ms P-R-T Axes : -20 108 058 degrees QTc Int : 425 ms Normal sinus rhythm Rightward axis Nonspecific ST and T wave abnormality Abnormal ECG When compared with ECG of 01-MAR-2018 10:55, Nonspecific T wave abnormality now evident in Anterolateral leads Referred By: Sabrina Hill Electronically Signed By:Ji Roach
[2021-07-22 16:55] VITALS: BP 120/80; PULSE 86; TEMP 35.9; O2SAT 97
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
[2021-07-23] MEDS: traZODone HCL 50 MG TABLET PO (00:28)
[2021-07-23] MEDS: Nicotine Polacrilex 2 MG GUM BUCCAL ×2 (03:41→10:20)
[2021-07-23 06:00] VITALS: BP 127/78; PULSE 76; RESP 16; TEMP 36.3; O2SAT 100
[2021-07-23] MEDS: OLANZapine ODT 10 MG TAB.RAPDIS TRANSLINGU (08:40)
[2021-07-23] MEDS: LORazepam 1 MG TABLET 2 MG PO ×4 (08:40→20:53)
[2021-07-23] MEDS: Nicotine Polacrilex 2 MG GUM 4 MG BUCCAL ×4 (14:18→20:53)
--- NOTE | 2021-07-23 16:49 | HO.PSYCHPN ---
Subjective Subjective Reason For Visit: psychosis,agitation Diagnostics Vital Signs (24Hr): Vital Signs - 24 hr 07/22/21 16:55 07/23/21 06:00 Temperature 96.6 F L 97.4 F Pulse Rate 86 76 Respiratory Rate 16 Blood Pressure 120/80 127/78 Pulse Oximetry 97 100 BMI result Body Mass Index 28.2 Labs Labs: Laboratory Results - last 48 hr 07/22/21 07/22/21 07/22/21 07:23 07:24 07:24 Estimat Average Glucose 91 Hemoglobin A1c % 4.8 Magnesium 2.1 Triglycerides 144 Cholesterol 165 LDL Cholesterol, Calc 98 HDL Cholesterol 39 Vitamin B12 483 Folate 9.0 TSH 1.32 Free T4 1.28 Medications Medications Current Medications Acetaminophen (Acetaminophen 325 Mg Tablet) 650 mg PO Q6H PRN PRN Reason: Headache/Pain Mild Scale (1-3) Al Hydroxide/Mg Hydroxide (Magnesium Hydrox/Alum Hydrox 30 Ml Oral.Susp) 30 ml PO Q6H PRN PRN Reason: Heartburn/Nausea Haloperidol (Haloperidol 5 Mg Tablet) 10 mg PO Q4H PRN PRN Reason: psychosis, agitation Last Admin: 07/22/21 05:12 Dose: 10 mg Documented by: Hydroxyzine HCl (Hydroxyzine Hcl 25 Mg Tablet) 25 mg PO BEDTIME PRN PRN Reason: Anxiety Last Admin: 07/21/21 20:59 Dose: 25 mg Documented by: Lorazepam (Lorazepam 1 Mg Tablet) 2 mg PO QID [facility] Last Admin: 07/23/21 12:00 Dose: 2 mg Documented by: Magnesium Hydroxide (Milk Of Magnesia 30 Ml Oral.Susp) 30 ml PO DAILY PRN PRN Reason: Constipation Nicotine Polacrilex (Nicotine Polacrilex 2 Mg Gum) 4 mg BUCCAL Q1H PRN PRN Reason: Nicotine Cravings Last Admin: 07/23/21 14:18 Dose: 4 mg Documented by: Olanzapine (Olanzapine Odt 10 Mg Tab.Rapdis) 10 mg TRANSLINGU BID [facility] Last Admin: 07/23/21 08:40 Dose: 10 mg Documented by: Trazodone HCl (Trazodone Hcl 50 Mg Tablet) 50 mg PO BEDTIME PRN PRN Reason: Insomnia Last Admin: 07/23/21 00:28 Dose: 50 mg Documented by: Allergies Allergies Allergy/AdvReac Type Severity Reaction Status Date / Time No Known Allergies Allergy Verified 12/27/19 19:33 [No Known Allergies*] Assessment & Plan Assessment & Plan (1) Acute psychosis: Status: Acute Code(s): F23 - Brief psychotic disorder Assessment and Plan: Pt 26 yo male, dx of Schizoaffective disorder, recently discharged from M3 who returned to ED for continued dysregulated behavior. pt recently discharged however, he remained unstable, threatened mom over weekend; poor insight. As rfp writer approached to discuss got very agitated, punched wall, postured toward rfp writer; security called and needed to be restrained. PLAN: At this time, pt requires inpatient admission for safety and stabilization. Refused CV and on Section 12b I spent minutes with the patient and/or on the patient floor today, greater than?50% of which was spent counseling/coordinating care.
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
[2021-07-23 18:00] VITALS: BP 150/92; PULSE 106; RESP 18; TEMP 36.6; O2SAT 100
[2021-07-23] MEDS: Divalproex Sodium ER 500 MG TAB.ER.24H PO (20:52)
[2021-07-23] MEDS: OLANZapine ODT 10 MG TAB.RAPDIS 15 MG TRANSLINGU (20:53)
[2021-07-24] MEDS: Acetaminophen 325 MG TABLET 650 MG PO ×2 (04:22→21:26)
[2021-07-24] MEDS: Nicotine Polacrilex 2 MG GUM 4 MG BUCCAL ×5 (04:25→23:09)
[2021-07-24] MEDS: HaloperidoL 5 MG TABLET 10 MG PO (05:46)
[2021-07-24] MEDS: LORazepam 1 MG TABLET 2 MG PO ×3 (05:46→16:47)
[2021-07-24 06:00] VITALS: BP 140/84; PULSE 68; RESP 16; TEMP 36.7; O2SAT 99
[2021-07-24 07:00] VITALS: BMI 27.0
[2021-07-24] MEDS: Multivitamin TABLET 1 TAB PO (08:34)
[2021-07-24] MEDS: Cyanocobalamin (Vitamin B-12) 100 MCG TABLET PO (08:34)
[2021-07-24] MEDS: Cholecalciferol (Vitamin D3) 10 MCG TABLET PO (08:34)
[2021-07-24] MEDS: OLANZapine ODT 10 MG TAB.RAPDIS 15 MG TRANSLINGU ×2 (08:34→20:07)
--- NOTE | 2021-07-24 17:46 | P.PNPSI_ITS ---
Subjective Subjective Date of Service: 07/24/21 Reason For Visit: psychosis,agitation Subjective Notes: Section 12B Healthcare Proxy: No Guardianship: No Medical Problems Affecting Mental Status: No Interim History: I am a grown man at 26. I have my own apartment and car. I am here because I used curse words. I missed my mother's birthday yesterday. She is getting Wednesday. Everyone gets angry-why don't I have the right to do that? I want to leave now. Telephone call with pt's mother. Julio Cesar Mills RN, pt's nurse, interpreted this call and solely convinced pt that it was in his best interest to sign a conditional voluntary and receive treatment vs engage in a court process. Mother visited today, and states that she believes pt is unwell. She sees anger, frustration, aggression as was at home. Pt was agressive at home she reports and psychotic, believing family were snakes. By history, pt was at [facility] last year, requiring ECT for similiar sx. Pt, by history will discharge from the hospital and lose compliance with meds after ~1 month, refuses OP follow up and then all care in general. Mother reports that this consistent outcome needs to change. Pt reports that he was joking at home and that comments were not serious or intended to frighten family. Medication Compliance: Yes Side effects from medications: No Attending Groups: No Review of Systems Acute medical concerns: No Medical Review of Systems: unchanged Review of Systems Review of Systems Yes all other systems are reviewed and are negative Musculoskeletal: Reports back pain (hx-reports no current sx.) Reports behavioral changes and Reports confusion Psychiatric: Reports abnormal sleep pattern, Reports behavioral changes, Reports confusion, Reports difficulty concentrating, Reports auditory hallucinations, Reports irritability, Reports anhedonia, Reports mood swings, Reports paranoia and Reports visual hallucinations Mental Status Exam Mental Status Exam Patient Appearance: Appropriate Patient Orientation: Person, Place and Time Level of Consciousness: Restless and Alert Patient Behavior: Guarded, Talkative, Cooperative, Suspicious, Restless, Anxious, Sedated, Resistive to Care, Avoidant, Distractible, Impulsive and Poor Eye Contact Mood Description: Suspicious, Withdrawn, Constricted, Hostile, Labile, Angry, Sad, Apprehensive and Expansive Affect Description: Labile Patient Cognition Impaired: Yes Ability to Follow Directions: Good Speech Pattern: Perseverating, Spontaneous Speech and Soft-Spoken Memory Description: Episodic Impaired Hallucinations: Auditory Delusions: Being Controlled, Paranoid Ideation and Present Perceptual Disturbances: Depersonalization and Derealization Thought Process: Illogical, Distracted and Rumination Thought Content: positive for Circumstantial, positive for Perseveration and positive for Preoccupation Depressive Symptoms: Increased Irritability, Difficulty Sleeping, Unhappiness and Difficulty Concentrating Abnormal Motor Activity Signs and Symptoms: Agitation and Restlessness Judgement: Poor Diagnostics Vital Signs (24Hr): Vital Signs - 24 hr 07/23/21 18:00 07/24/21 06:00 Temperature 97.8 F 98.0 F Pulse Rate 106 H 68 Respiratory Rate 18 16 Blood Pressure 150/92 H 140/84 H Pulse Oximetry 100 99 BMI result Body Mass Index 27.0 Medications Medications Current Medications Acetaminophen (Acetaminophen 325 Mg Tablet) 650 mg PO Q6H PRN PRN Reason: Headache/Pain Mild Scale (1-3) Last Admin: 07/24/21 04:22 Dose: 650 mg Documented by: Al Hydroxide/Mg Hydroxide (Magnesium Hydrox/Alum Hydrox 30 Ml Oral.Susp) 30 ml PO Q6H PRN PRN Reason: Heartburn/Nausea Cyanocobalamin (Cyanocobalamin (Vitamin B-12) 100 Mcg Tablet) 100 mcg PO DAILY [facility] Last Admin: 07/24/21 08:34 Dose: 100 mcg Documented by: Divalproex Sodium (Divalproex Sodium Er 500 Mg Tab.Er.24h) 500 mg PO BEDTIME [facility] Last Admin: 07/23/21 20:52 Dose: 500 mg Documented by: Haloperidol (Haloperidol 5 Mg Tablet) 10 mg PO Q4H PRN PRN Reason: psychosis, agitation Last Admin: 07/24/21 05:46 Dose: 10 mg Documented by: Hydroxyzine HCl (Hydroxyzine Hcl 25 Mg Tablet) 25 mg PO BEDTIME PRN PRN Reason: Anxiety Last Admin: 07/21/21 20:59 Dose: 25 mg Documented by: Lorazepam (Lorazepam 1 Mg Tablet) 2 mg PO QID [facility] Last Admin: 07/24/21 16:47 Dose: 2 mg Documented by: Magnesium Hydroxide (Milk Of Magnesia 30 Ml Oral.Susp) 30 ml PO DAILY PRN PRN Reason: Constipation Melatonin (Melatonin 3 Mg Tablet) 6 mg PO BEDTIME PRN PRN Reason: insomnia Multivitamins/Vitamin C (Multivitamin Tablet) 1 tab PO DAILY [facility] Last Admin: 07/24/21 08:34 Dose: 1 tab Documented by: Nicotine Polacrilex (Nicotine Polacrilex 2 Mg Gum) 4 mg BUCCAL Q1H PRN PRN Reason: Nicotine Cravings Last Admin: 07/24/21 16:53 Dose: 4 mg Documented by: Olanzapine (Olanzapine Odt 10 Mg Tab.Rapdis) 15 mg TRANSLINGU BID [facility] Last Admin: 07/24/21 08:34 Dose: 15 mg Documented by: Trazodone HCl (Trazodone Hcl 50 Mg Tablet) 50 mg PO BEDTIME PRN PRN Reason: Insomnia Last Admin: 07/23/21 00:28 Dose: 50 mg Documented by: Vitamin D (Cholecalciferol (Vitamin D3) 10 Mcg Tablet) 10 mcg PO DAILY [facility] Last Admin: 07/24/21 08:34 Dose: 10 mcg Documented by: Allergies Allergies Allergy/AdvReac Type Severity Reaction Status Date / Time No Known Allergies Allergy Verified 12/27/19 19:33 [No Known Allergies*] Assessment & Plan Assessment & Plan (1) Schizoaffective disorder, bipolar type: Status: Acute Code(s): F25.0 - Schizoaffective disorder, bipolar type Plan 26 yo with a hx of schizoaffective disorder, bipolar type, alcohol, cannabis use disorder, admitted on Section XIIB after family felt threatened by current sx presentation. Pt presenting with lability, psychosis, intermittent agiation. -Increase Olanzapine to 15 mg bid -Depakote ER 500 mg hs 07/24/21- Continue current plan. I spent minutes with the patient and/or on the patient floor today, greater than?50% of which was spent counseling/coordinating care. Patient educated on: therapeutic strategies Informed Consent: further education needed Reason for contiued inpatient stay Substantial Risk for: harm to self, harm to others, inability to function and rapid decompensation
[2021-07-24 18:00] VITALS: BP 145/80; PULSE 95
[2021-07-24] MEDS: Divalproex Sodium ER 500 MG TAB.ER.24H PO (20:06)
[2021-07-24] MEDS: LORazepam 1 MG TABLET PO (20:07)
[2021-07-24] MEDS: hydrOXYzine HCL 25 MG TABLET PO (23:30)
[2021-07-24] MEDS: traZODone HCL 50 MG TABLET PO (23:30)
[2021-07-25] MEDS: Melatonin 3 MG TABLET 6 MG PO (04:14)
[2021-07-25] MEDS: Nicotine Polacrilex 2 MG GUM 4 MG BUCCAL ×3 (04:16→21:03)
[2021-07-25 06:00] VITALS: BP 133/81; PULSE 87; RESP 14; TEMP 36.1; O2SAT 98
[2021-07-25] MEDS: LORazepam 1 MG TABLET PO ×4 (08:34→21:03)
[2021-07-25] MEDS: Multivitamin TABLET 1 TAB PO (08:34)
[2021-07-25] MEDS: Cholecalciferol (Vitamin D3) 10 MCG TABLET PO (08:34)
[2021-07-25] MEDS: OLANZapine ODT 10 MG TAB.RAPDIS 15 MG TRANSLINGU ×2 (08:35→21:03)
[2021-07-25] MEDS: Cyanocobalamin (Vitamin B-12) 100 MCG TABLET PO (08:35)
--- NOTE | 2021-07-25 15:07 | P.PNPSI_ITS ---
Subjective Subjective Date of Service: 07/25/21 Reason For Visit: psychosis,agitation Subjective Notes: Conditional Voluntary Interim History: Labile, irritable, angry, calm, positive, engaging. Reportes RMQ pain- ?constipation, ?UTI, ?Renal calculi. Mood is up and down mostly depressed Tearful about needing to be here-not wanting to talk of it. Wanting to be in his apartment Agrees to family meeting so we may begin to negotiate his discharge. Medication Compliance: Yes Side effects from medications: No Attending Groups: Intermittent Review of Systems Acute medical concerns: No As noted in HPI Medical Review of Systems: unchanged Review of Systems Review of Systems Yes all other systems are reviewed and are negative Musculoskeletal: Reports back pain (hx-reports no current sx.) Reports behavioral changes and Reports confusion Psychiatric: Reports abnormal sleep pattern, Reports behavioral changes, Reports confusion, Reports difficulty concentrating, Reports auditory hallucinations, Reports irritability, Reports anhedonia, Reports mood swings, Reports paranoia and Reports visual hallucinations Mental Status Exam Mental Status Exam Patient Appearance: Appropriate Patient Orientation: Person, Place and Time Level of Consciousness: Restless and Alert Patient Behavior: Guarded, Talkative, Cooperative, Suspicious, Restless, Anxious, Sedated, Resistive to Care, Avoidant, Distractible, Impulsive and Poor Eye Contact Mood Description: Suspicious, Withdrawn, Constricted, Hostile, Labile, Angry, Sad, Apprehensive and Expansive Affect Description: Labile Patient Cognition Impaired: Yes Ability to Follow Directions: Good Speech Pattern: Perseverating, Spontaneous Speech and Soft-Spoken Memory Description: Episodic Impaired Hallucinations: Auditory Delusions: Being Controlled, Paranoid Ideation and Present Perceptual Disturbances: Depersonalization and Derealization Thought Process: Illogical, Distracted and Rumination Thought Content: positive for Circumstantial, positive for Perseveration and positive for Preoccupation Depressive Symptoms: Increased Irritability, Difficulty Sleeping, Unhappiness and Difficulty Concentrating Abnormal Motor Activity Signs and Symptoms: Agitation and Restlessness Judgement: Poor Diagnostics Vital Signs (24Hr): Vital Signs - 24 hr 07/24/21 18:00 07/25/21 06:00 Temperature 97 F Pulse Rate 95 87 Respiratory Rate 14 Blood Pressure 145/80 H 133/81 Pulse Oximetry 98 BMI result Body Mass Index 27.0 Medications Medications Current Medications Acetaminophen (Acetaminophen 325 Mg Tablet) 650 mg PO Q6H PRN PRN Reason: Headache/Pain Mild Scale (1-3) Last Admin: 07/24/21 21:26 Dose: 650 mg Documented by: Al Hydroxide/Mg Hydroxide (Magnesium Hydrox/Alum Hydrox 30 Ml Oral.Susp) 30 ml PO Q6H PRN PRN Reason: Heartburn/Nausea Cyanocobalamin (Cyanocobalamin (Vitamin B-12) 100 Mcg Tablet) 100 mcg PO DAILY [facility] Last Admin: 07/25/21 08:35 Dose: 100 mcg Documented by: Divalproex Sodium (Divalproex Sodium Er 500 Mg Tab.Er.24h) 500 mg PO BEDTIME [facility] Last Admin: 07/24/21 20:06 Dose: 500 mg Documented by: Haloperidol (Haloperidol 5 Mg Tablet) 10 mg PO Q4H PRN PRN Reason: psychosis, agitation Last Admin: 07/24/21 05:46 Dose: 10 mg Documented by: Hydroxyzine HCl (Hydroxyzine Hcl 25 Mg Tablet) 25 mg PO BEDTIME PRN PRN Reason: Anxiety Last Admin: 07/24/21 23:30 Dose: 25 mg Documented by: Lorazepam (Lorazepam 1 Mg Tablet) 1 mg PO QID [facility] Last Admin: 07/25/21 11:57 Dose: 1 mg Documented by: Magnesium Hydroxide (Milk Of Magnesia 30 Ml Oral.Susp) 30 ml PO DAILY PRN PRN Reason: Constipation Melatonin (Melatonin 3 Mg Tablet) 6 mg PO BEDTIME PRN PRN Reason: insomnia Last Admin: 07/25/21 04:14 Dose: 6 mg Documented by: Multivitamins/Vitamin C (Multivitamin Tablet) 1 tab PO DAILY [facility] Last Admin: 07/25/21 08:34 Dose: 1 tab Documented by: Nicotine Polacrilex (Nicotine Polacrilex 2 Mg Gum) 4 mg BUCCAL Q1H PRN PRN Reason: Nicotine Cravings Last Admin: 07/25/21 11:07 Dose: 4 mg Documented by: Olanzapine (Olanzapine Odt 10 Mg Tab.Rapdis) 15 mg TRANSLINGU BID [facility] Last Admin: 07/25/21 08:35 Dose: 15 mg Documented by: Trazodone HCl (Trazodone Hcl 50 Mg Tablet) 50 mg PO BEDTIME PRN PRN Reason: Insomnia Last Admin: 07/24/21 23:30 Dose: 50 mg Documented by: Vitamin D (Cholecalciferol (Vitamin D3) 10 Mcg Tablet) 10 mcg PO DAILY [facility] Last Admin: 07/25/21 08:34 Dose: 10 mcg Documented by: Allergies Allergies Allergy/AdvReac Type Severity Reaction Status Date / Time No Known Allergies Allergy Verified 12/27/19 19:33 [No Known Allergies*] Assessment & Plan Assessment & Plan (1) Schizoaffective disorder, bipolar type: Status: Acute Code(s): F25.0 - Schizoaffective disorder, bipolar type Plan 26 yo with a hx of schizoaffective disorder, bipolar type, alcohol, cannabis use disorder, admitted on Section XIIB after family felt threatened by current sx presentation. Pt presenting with lability, psychosis, intermittent agiation. -Increase Olanzapine to 15 mg bid -Depakote ER 500 mg hs 07/24/21- Continue current plan. 07/24/21- UACS, Abdomen x ray, Dulcolax prn-further eval as needed. I spent minutes with the patient and/or on the patient floor today, greater than?50% of which was spent counseling/coordinating care. Patient educated on: therapeutic strategies Informed Consent: further education needed Reason for contiued inpatient stay Substantial Risk for: harm to self, harm to others, inability to function and rapid decompensation
[2021-07-25 20:12] VITALS: BP 137/80; PULSE 80
[2021-07-25] MEDS: Divalproex Sodium ER 500 MG TAB.ER.24H PO (21:03)
[2021-07-26] MEDS: Melatonin 3 MG TABLET 6 MG PO (01:46)
[2021-07-26] MEDS: hydrOXYzine HCL 25 MG TABLET PO (01:46)
[2021-07-26] MEDS: Nicotine Polacrilex 2 MG GUM 4 MG BUCCAL ×4 (05:44→20:46)
[2021-07-26 06:00] VITALS: BP 130/78; PULSE 86; RESP 18; TEMP 36.4; O2SAT 100
[2021-07-26] MEDS: Cholecalciferol (Vitamin D3) 10 MCG TABLET PO (07:49)
[2021-07-26] MEDS: LORazepam 1 MG TABLET PO ×4 (07:49→20:45)
[2021-07-26] MEDS: Multivitamin TABLET 1 TAB PO (07:49)
[2021-07-26] MEDS: OLANZapine ODT 10 MG TAB.RAPDIS 15 MG TRANSLINGU ×2 (07:49→20:44)
[2021-07-26] MEDS: Cyanocobalamin (Vitamin B-12) 100 MCG TABLET PO (07:49)
--- NOTE | 2021-07-26 11:34 | HO.PSYCHPN ---
Subjective Subjective Date of Service: 07/26/21 Reason For Visit: psychosis,agitation Interim History: Patient started by saying he is feeling better and feeling great. He said his sleep has improved. He then said he has abdominal discomfort that has been going on since I was 15-18 . 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 Then he asked if he can go to his mother's wedding. When he was told no, he suddenly switched moods and started swearing at this examiner, threw a cup of coffee at the floor and became agitated. He is labile, irritable, angry. Medication Compliance: Yes Review of Systems Review of Systems Yes all other systems are reviewed and are negative Musculoskeletal: Reports back pain (hx-reports no current sx.) Reports behavioral changes and Reports confusion Psychiatric: Reports abnormal sleep pattern, Reports behavioral changes, Reports confusion, Reports difficulty concentrating, Reports auditory hallucinations, Reports irritability, Reports anhedonia, Reports mood swings, Reports paranoia and Reports visual hallucinations Mental Status Exam Mental Status Exam Patient Appearance: Appropriate Patient Orientation: Person, Place and Time Level of Consciousness: Restless and Alert Patient Behavior: Guarded, Talkative, Posturing, Cooperative, Suspicious, Restless, Swearing, Anxious, Sedated, Resistive to Care, Avoidant, Distractible, Impulsive and Poor Eye Contact Mood Description: Suspicious, Withdrawn, Constricted, Hostile, Labile, Angry, Sad, Apprehensive and Expansive Affect Description: Suspicious, Hostile, Labile and Angry Patient Cognition Impaired: No Ability to Follow Directions: Good Speech Pattern: Perseverating, Spontaneous Speech, Soft-Spoken, Loud and Includes Profanity Memory Description: Episodic Impaired Hallucinations: None (denied) Delusions: Paranoid Ideation and Present Thought Process: Illogical Thought Content: positive for Perseveration and positive for Disorganized Abnormal Motor Activity Signs and Symptoms: Agitation Judgement: Poor Judgement and Insight: POoor Diagnostics Vital Signs (24Hr): Vital Signs - 24 hr 07/25/21 20:12 07/26/21 06:00 Temperature 97.6 F Pulse Rate 80 86 Respiratory Rate 18 Blood Pressure 137/80 130/78 Pulse Oximetry 100 BMI result Body Mass Index 27.0 Imaging Radiology Impressions: ITS Impressions Abdomen X-Ray 07/26/21 09:30 IMPRESSION: * No acute radiographic abnormalities in the abdomen. No evidence of renal stones. * Moderate amount of fecal material is present in the nondilated colon. Medications Medications Current Medications Acetaminophen (Acetaminophen 325 Mg Tablet) 650 mg PO Q6H PRN PRN Reason: Headache/Pain Mild Scale (1-3) Last Admin: 07/24/21 21:26 Dose: 650 mg Documented by: Al Hydroxide/Mg Hydroxide (Magnesium Hydrox/Alum Hydrox 30 Ml Oral.Susp) 30 ml PO Q6H PRN PRN Reason: Heartburn/Nausea Bisacodyl (Bisacodyl 5 Mg Tablet.Dr) 10 mg PO BEDTIME PRN PRN Reason: Constipation Cyanocobalamin (Cyanocobalamin (Vitamin B-12) 100 Mcg Tablet) 100 mcg PO DAILY [facility] Last Admin: 07/26/21 07:49 Dose: 100 mcg Documented by: Divalproex Sodium (Divalproex Sodium Er 500 Mg Tab.Er.24h) 500 mg PO BEDTIME [facility] Last Admin: 07/25/21 21:03 Dose: 500 mg Documented by: Haloperidol (Haloperidol 5 Mg Tablet) 10 mg PO Q4H PRN PRN Reason: psychosis, agitation Last Admin: 07/24/21 05:46 Dose: 10 mg Documented by: Hydroxyzine HCl (Hydroxyzine Hcl 25 Mg Tablet) 25 mg PO BEDTIME PRN PRN Reason: Anxiety Last Admin: 07/26/21 01:46 Dose: 25 mg Documented by: Lorazepam (Lorazepam 1 Mg Tablet) 1 mg PO QID [facility] Last Admin: 07/26/21 07:49 Dose: 1 mg Documented by: Magnesium Hydroxide (Milk Of Magnesia 30 Ml Oral.Susp) 30 ml PO DAILY PRN PRN Reason: Constipation Melatonin (Melatonin 3 Mg Tablet) 6 mg PO BEDTIME PRN PRN Reason: insomnia Last Admin: 07/26/21 01:46 Dose: 6 mg Documented by: Multivitamins/Vitamin C (Multivitamin Tablet) 1 tab PO DAILY [facility] Last Admin: 07/26/21 07:49 Dose: 1 tab Documented by: Nicotine Polacrilex (Nicotine Polacrilex 2 Mg Gum) 4 mg BUCCAL Q1H PRN PRN Reason: Nicotine Cravings Last Admin: 07/26/21 07:52 Dose: 4 mg Documented by: Olanzapine (Olanzapine Odt 10 Mg Tab.Rapdis) 15 mg TRANSLINGU BID [facility] Last Admin: 07/26/21 07:49 Dose: 15 mg Documented by: Trazodone HCl (Trazodone Hcl 50 Mg Tablet) 50 mg PO BEDTIME PRN PRN Reason: Insomnia Last Admin: 07/24/21 23:30 Dose: 50 mg Documented by: Vitamin D (Cholecalciferol (Vitamin D3) 10 Mcg Tablet) 10 mcg PO DAILY [facility] Last Admin: 07/26/21 07:49 Dose: 10 mcg Documented by: Allergies Allergies Allergy/AdvReac Type Severity Reaction Status Date / Time No Known Allergies Allergy Verified 12/27/19 19:33 [No Known Allergies*] Assessment & Plan Assessment & Plan (1) Schizoaffective disorder, bipolar type: Status: Acute Code(s): F25.0 - Schizoaffective disorder, bipolar type Plan 26 yo with a hx of schizoaffective disorder, bipolar type, alcohol, cannabis use disorder, admitted on Section XIIB after family felt threatened by current sx presentation. Pt presenting with lability, psychosis, intermittent agiation. -Increase Olanzapine to 15 mg bid -Depakote ER 500 mg hs 07/24/21- Continue current plan. 07/24/21- UACS, Abdomen x ray, Dulcolax prn-further eval as needed. 07/25: Increase Depakote to 1000 mg HS. I spent minutes with the patient and/or on the patient floor today, greater than?50% of which was spent counseling/coordinating care. Informed Consent: understands Reason for contiued inpatient stay Substantial Risk for: harm to others and rapid decompensation
[2021-07-26] MEDS: HaloperidoL 5 MG TABLET 10 MG PO (11:39)
[2021-07-26 18:44] VITALS: BP 132/84; PULSE 89
[2021-07-26] MEDS: Divalproex Sodium ER 500 MG TAB.ER.24H 1000 MG PO (20:45)
[2021-07-26] MEDS: bisacodyL 5 MG TABLET.DR 10 MG PO (20:45)
[2021-07-27] MEDS: traZODone HCL 50 MG TABLET PO (01:32)
[2021-07-27] MEDS: Nicotine Polacrilex 2 MG GUM 4 MG BUCCAL ×4 (01:33→22:11)
[2021-07-27 06:00] VITALS: BP 134/74; PULSE 91; RESP 18; TEMP 36.3; O2SAT 97
[2021-07-27] MEDS: LORazepam 1 MG TABLET PO ×4 (08:05→20:07)
[2021-07-27] MEDS: OLANZapine ODT 10 MG TAB.RAPDIS 15 MG TRANSLINGU ×2 (08:05→20:07)
[2021-07-27] MEDS: Cholecalciferol (Vitamin D3) 10 MCG TABLET PO (08:05)
[2021-07-27] MEDS: Multivitamin TABLET 1 TAB PO (08:05)
[2021-07-27] MEDS: Cyanocobalamin (Vitamin B-12) 100 MCG TABLET PO (08:05)
--- NOTE | 2021-07-27 09:56 | HO.PSYCHPN ---
Subjective Subjective Date of Service: 07/27/21 Reason For Visit: psychosis,agitation Interim History: Patient started by saying he is feeling amazing. Again asked about leaving today and when he was told he can't he again got extremely angry, he threw coffee on the floor. He started using profanities. He started yelling and became agitated and threatening. You're going to see my anger! He is labile, irritable, angry. Review of Systems Review of Systems Yes all other systems are reviewed and are negative Musculoskeletal: Reports back pain (hx-reports no current sx.) Reports behavioral changes and Reports confusion Psychiatric: Reports abnormal sleep pattern, Reports behavioral changes, Reports confusion, Reports difficulty concentrating, Reports auditory hallucinations, Reports irritability, Reports anhedonia, Reports mood swings, Reports paranoia and Reports visual hallucinations Mental Status Exam Mental Status Exam Patient Appearance: Appropriate Patient Orientation: Person, Place and Time Level of Consciousness: Restless and Alert Patient Behavior: Guarded, Talkative, Posturing, Suspicious, Restless, Swearing, Anxious, Sedated, Resistive to Care, Avoidant, Distractible, Impulsive and Poor Eye Contact Mood Description: Suspicious, Withdrawn, Constricted, Hostile, Labile, Angry, Sad, Apprehensive and Expansive Affect Description: Suspicious, Hostile, Labile and Angry Patient Cognition Impaired: No Ability to Follow Directions: Good Speech Pattern: Perseverating, Spontaneous Speech, Soft-Spoken, Loud and Includes Profanity Memory Description: Episodic Impaired Delusions: Bizarre Thought Content: positive for Perseveration Abnormal Motor Activity Signs and Symptoms: Agitation and Restlessness Judgement: Poor Diagnostics Vital Signs (24Hr): Vital Signs - 24 hr 07/26/21 18:44 07/27/21 06:00 Temperature 97.4 F Pulse Rate 89 91 Respiratory Rate 18 Blood Pressure 132/84 134/74 Pulse Oximetry 97 BMI result Body Mass Index 27.0 Imaging Radiology Impressions: ITS Impressions Abdomen X-Ray 07/26/21 09:30 IMPRESSION: * No acute radiographic abnormalities in the abdomen. No evidence of renal stones. * Moderate amount of fecal material is present in the nondilated colon. Medications Medications Current Medications Acetaminophen (Acetaminophen 325 Mg Tablet) 650 mg PO Q6H PRN PRN Reason: Headache/Pain Mild Scale (1-3) Last Admin: 07/24/21 21:26 Dose: 650 mg Documented by: Al Hydroxide/Mg Hydroxide (Magnesium Hydrox/Alum Hydrox 30 Ml Oral.Susp) 30 ml PO Q6H PRN PRN Reason: Heartburn/Nausea Bisacodyl (Bisacodyl 5 Mg Tablet.Dr) 10 mg PO BEDTIME PRN PRN Reason: Constipation Last Admin: 07/26/21 20:45 Dose: 10 mg Documented by: Cyanocobalamin (Cyanocobalamin (Vitamin B-12) 100 Mcg Tablet) 100 mcg PO DAILY [facility] Last Admin: 07/27/21 08:05 Dose: 100 mcg Documented by: Divalproex Sodium (Divalproex Sodium Er 500 Mg Tab.Er.24h) 1,000 mg PO BEDTIME [facility] Last Admin: 07/26/21 20:45 Dose: 1,000 mg Documented by: Haloperidol (Haloperidol 5 Mg Tablet) 10 mg PO Q4H PRN PRN Reason: psychosis, agitation Last Admin: 07/26/21 11:39 Dose: 10 mg Documented by: Hydroxyzine HCl (Hydroxyzine Hcl 25 Mg Tablet) 25 mg PO BEDTIME PRN PRN Reason: Anxiety Last Admin: 07/26/21 01:46 Dose: 25 mg Documented by: Lorazepam (Lorazepam 1 Mg Tablet) 1 mg PO QID [facility] Last Admin: 07/27/21 08:05 Dose: 1 mg Documented by: Magnesium Hydroxide (Milk Of Magnesia 30 Ml Oral.Susp) 30 ml PO DAILY PRN PRN Reason: Constipation Melatonin (Melatonin 3 Mg Tablet) 6 mg PO BEDTIME PRN PRN Reason: insomnia Last Admin: 07/26/21 01:46 Dose: 6 mg Documented by: Multivitamins/Vitamin C (Multivitamin Tablet) 1 tab PO DAILY [facility] Last Admin: 07/27/21 08:05 Dose: 1 tab Documented by: Nicotine Polacrilex (Nicotine Polacrilex 2 Mg Gum) 4 mg BUCCAL Q1H PRN PRN Reason: Nicotine Cravings Last Admin: 07/27/21 08:05 Dose: 4 mg Documented by: Olanzapine (Olanzapine Odt 10 Mg Tab.Rapdis) 15 mg TRANSLINGU BID [facility] Last Admin: 07/27/21 08:05 Dose: 15 mg Documented by: Trazodone HCl (Trazodone Hcl 50 Mg Tablet) 50 mg PO BEDTIME PRN PRN Reason: Insomnia Last Admin: 07/27/21 01:32 Dose: 50 mg Documented by: Vitamin D (Cholecalciferol (Vitamin D3) 10 Mcg Tablet) 10 mcg PO DAILY [facility] Last Admin: 07/27/21 08:05 Dose: 10 mcg Documented by: Allergies Allergies Allergy/AdvReac Type Severity Reaction Status Date / Time No Known Allergies Allergy Verified 12/27/19 19:33 [No Known Allergies*] Assessment & Plan Assessment & Plan (1) Schizoaffective disorder, bipolar type: Status: Acute Code(s): F25.0 - Schizoaffective disorder, bipolar type Plan 26 yo with a hx of schizoaffective disorder, bipolar type, alcohol, cannabis use disorder, admitted on Section XIIB after family felt threatened by current sx presentation. Pt presenting with lability, psychosis, intermittent agiation. -Increase Olanzapine to 15 mg bid -Depakote ER 500 mg hs 07/24/21- Continue current plan. 07/24/21- UACS, Abdomen x ray, Dulcolax prn-further eval as needed. 07/26: Increase Depakote to 1000 mg HS. 07/27: Continue current medications. I spent minutes with the patient and/or on the patient floor today, greater than?50% of which was spent counseling/coordinating care. Reason for contiued inpatient stay Substantial Risk for: harm to others and rapid decompensation
[2021-07-27] MEDS: HaloperidoL 5 MG TABLET 10 MG PO (10:02)
[2021-07-27 16:44] VITALS: BP 119/73; PULSE 85
[2021-07-27] MEDS: Divalproex Sodium ER 500 MG TAB.ER.24H 1000 MG PO (20:07)
[2021-07-27] MEDS: Melatonin 3 MG TABLET 6 MG PO (22:08)
[2021-07-28] MEDS: traZODone HCL 50 MG TABLET PO (00:49)
[2021-07-28] MEDS: Nicotine Polacrilex 2 MG GUM 4 MG BUCCAL ×6 (00:50→23:43)
[2021-07-28] MEDS: HaloperidoL 5 MG TABLET 10 MG PO ×2 (04:12→13:41)
[2021-07-28] MEDS: Acetaminophen 325 MG TABLET 650 MG PO (04:13)
[2021-07-28] MEDS: hydrOXYzine HCL 25 MG TABLET PO (04:14)
[2021-07-28 06:00] VITALS: BP 119/80; PULSE 100; RESP 18; TEMP 36.3; O2SAT 98
[2021-07-28] MEDS: LORazepam 1 MG TABLET PO ×4 (08:52→20:15)
[2021-07-28] MEDS: Cholecalciferol (Vitamin D3) 10 MCG TABLET PO (08:52)
[2021-07-28] MEDS: Cyanocobalamin (Vitamin B-12) 100 MCG TABLET PO (08:52)
[2021-07-28] MEDS: OLANZapine ODT 10 MG TAB.RAPDIS 15 MG TRANSLINGU ×2 (08:52→20:15)
[2021-07-28] MEDS: Multivitamin TABLET 1 TAB PO (08:52)
--- NOTE | 2021-07-28 13:29 | P.PNPSI_ITS ---
Subjective Subjective Date of Service: 07/28/21 Reason For Visit: psychosis,agitation Interim History: Patient observed on multiple occasions and discussed with team. Patient was very irritable today. He was seen getting into a verbal altercation with another patient on the unit. His room had to be moved. Patient asked RN about leaving today and when he was told no, he took the headphones and broke them in half and threw them. This writer technical publications decided for safety not to see the patient in person as he has been threatening to this examiner the last 2 days. He is basically unchanged in spite of increase Depakote to 1,000 mg and increase Zyprexa to 15 mg BID. He is labile, irritable, angry. He is compliant with meds by report. Will check Depakote level for tomorrow. Review of Systems Review of Systems Yes all other systems are reviewed and are negative Musculoskeletal: Reports back pain (hx-reports no current sx.) Reports behavioral changes and Reports confusion Psychiatric: Reports abnormal sleep pattern, Reports behavioral changes, Reports confusion, Reports difficulty concentrating, Reports auditory hallucinations, Reports irritability, Reports anhedonia, Reports mood swings, Reports paranoia and Reports visual hallucinations Mental Status Exam Mental Status Exam Patient Appearance: Appropriate Patient Orientation: Person, Place and Time Level of Consciousness: Restless and Alert Patient Behavior: Guarded, Talkative, Posturing, Suspicious, Restless, Swearing, Anxious, Resistive to Care, Avoidant, Distractible, Impulsive and Poor Eye Contact Mood Description: Suspicious, Withdrawn, Constricted, Hostile, Labile, Angry, Sad, Apprehensive and Expansive Affect Description: Suspicious, Hostile, Labile and Angry Patient Cognition Impaired: No Ability to Follow Directions: Poor Speech Pattern: Perseverating, Spontaneous Speech, Soft-Spoken, Loud and Includes Profanity Memory Description: Episodic Impaired Delusions: Paranoid Ideation Thought Content: positive for Perseveration, positive for Poverty of Content and positive for Disorganized Abnormal Motor Activity Signs and Symptoms: Agitation and Restlessness Judgement: Poor Diagnostics Vital Signs (24Hr): Vital Signs - 24 hr 07/27/21 16:44 07/28/21 06:00 Temperature 97.4 F Pulse Rate 85 100 Respiratory Rate 18 Blood Pressure 119/73 119/80 Pulse Oximetry 98 BMI result Body Mass Index 27.0 Imaging Radiology Impressions: ITS Impressions Abdomen X-Ray 07/26/21 09:30 IMPRESSION: * No acute radiographic abnormalities in the abdomen. No evidence of renal stones. * Moderate amount of fecal material is present in the nondilated colon. Medications Medications Current Medications Acetaminophen (Acetaminophen 325 Mg Tablet) 650 mg PO Q6H PRN PRN Reason: Headache/Pain Mild Scale (1-3) Last Admin: 07/28/21 04:13 Dose: 650 mg Documented by: Al Hydroxide/Mg Hydroxide (Magnesium Hydrox/Alum Hydrox 30 Ml Oral.Susp) 30 ml PO Q6H PRN PRN Reason: Heartburn/Nausea Bisacodyl (Bisacodyl 5 Mg Tablet.Dr) 10 mg PO BEDTIME PRN PRN Reason: Constipation Last Admin: 07/26/21 20:45 Dose: 10 mg Documented by: Cyanocobalamin (Cyanocobalamin (Vitamin B-12) 100 Mcg Tablet) 100 mcg PO DAILY [facility] Last Admin: 07/28/21 08:52 Dose: 100 mcg Documented by: Divalproex Sodium (Divalproex Sodium Er 500 Mg Tab.Er.24h) 1,000 mg PO BEDTIME [facility] Last Admin: 07/27/21 20:07 Dose: 1,000 mg Documented by: Haloperidol (Haloperidol 5 Mg Tablet) 10 mg PO Q4H PRN PRN Reason: psychosis, agitation Last Admin: 07/28/21 04:12 Dose: 10 mg Documented by: Hydroxyzine HCl (Hydroxyzine Hcl 25 Mg Tablet) 25 mg PO BEDTIME PRN PRN Reason: Anxiety Last Admin: 07/28/21 04:14 Dose: 25 mg Documented by: Lorazepam (Lorazepam 1 Mg Tablet) 1 mg PO QID [facility] Last Admin: 07/28/21 12:20 Dose: 1 mg Documented by: Magnesium Hydroxide (Milk Of Magnesia 30 Ml Oral.Susp) 30 ml PO DAILY PRN PRN Reason: Constipation Melatonin (Melatonin 3 Mg Tablet) 6 mg PO BEDTIME PRN PRN Reason: insomnia Last Admin: 07/27/21 22:08 Dose: 6 mg Documented by: Multivitamins/Vitamin C (Multivitamin Tablet) 1 tab PO DAILY [facility] Last Admin: 07/28/21 08:52 Dose: 1 tab Documented by: Nicotine Polacrilex (Nicotine Polacrilex 2 Mg Gum) 4 mg BUCCAL Q1H PRN PRN Reason: Nicotine Cravings Last Admin: 07/28/21 08:52 Dose: 4 mg Documented by: Olanzapine (Olanzapine Odt 10 Mg Tab.Rapdis) 15 mg TRANSLINGU BID [facility] Last Admin: 07/28/21 08:52 Dose: 15 mg Documented by: Trazodone HCl (Trazodone Hcl 50 Mg Tablet) 50 mg PO BEDTIME PRN PRN Reason: Insomnia Last Admin: 07/28/21 00:49 Dose: 50 mg Documented by: Vitamin D (Cholecalciferol (Vitamin D3) 10 Mcg Tablet) 10 mcg PO DAILY [facility] Last Admin: 07/28/21 08:52 Dose: 10 mcg Documented by: Allergies Allergies Allergy/AdvReac Type Severity Reaction Status Date / Time No Known Allergies Allergy Verified 12/27/19 19:33 [No Known Allergies*] Assessment & Plan Assessment & Plan (1) Schizoaffective disorder, bipolar type: Status: Acute Code(s): F25.0 - Schizoaffective disorder, bipolar type Plan 26 yo with a hx of schizoaffective disorder, bipolar type, alcohol, cannabis use disorder, admitted on Section XIIB after family felt threatened by current sx presentation. Pt presenting with lability, psychosis, intermittent agiation. -Increase Olanzapine to 15 mg bid -Depakote ER 500 mg hs 07/24/21- Continue current plan. 07/24/21- UACS, Abdomen x ray, Dulcolax prn-further eval as needed. 07/26: Increase Depakote to 1000 mg HS. 07/27: Continue current medications. 07/28: Check Depakote level. May need increase Depakote tomorrow I spent minutes with the patient and/or on the patient floor today, greater than?50% of which was spent counseling/coordinating care. Reason for contiued inpatient stay Substantial Risk for: harm to others, inability to function and rapid decompensation
[2021-07-28 18:54] VITALS: BP 154/90; PULSE 99
[2021-07-28] MEDS: Divalproex Sodium ER 500 MG TAB.ER.24H 1000 MG PO (20:15)
[2021-07-29 06:00] VITALS: BP 139/84; PULSE 80; RESP 18; TEMP 36.1; O2SAT 97
[2021-07-29] MEDS: Acetaminophen 325 MG TABLET 650 MG PO (08:31)
[2021-07-29] MEDS: OLANZapine ODT 10 MG TAB.RAPDIS 15 MG TRANSLINGU (08:33)
[2021-07-29] MEDS: Cholecalciferol (Vitamin D3) 10 MCG TABLET PO (08:33)
[2021-07-29] MEDS: LORazepam 1 MG TABLET PO ×2 (08:33→14:59)
[2021-07-29] MEDS: Multivitamin TABLET 1 TAB PO (08:35)
[2021-07-29] MEDS: Nicotine Polacrilex 2 MG GUM 4 MG BUCCAL ×3 (08:35→14:59)
[2021-07-29] MEDS: Cyanocobalamin (Vitamin B-12) 100 MCG TABLET PO (08:50)
[2021-07-29 09:29] LABS: Valproate 41.8 mcg/mL (50.0-100.0)
--- NOTE | 2021-07-29 17:22 | PM.PSYDC ---
DS: Providers Provider Date of Service: 07/29/21 Date of admission: 07/21/21 16:21 Date of discharge: 07/29/21 Primary care physician: [facility] Admitting clinician: Sabrina Hill Attending physician on admission: Sabrina Hill Attending physician on discharge: Sabrina Hill Discharging clinician: Sabrina Hill DS: Diagnosis Discharge Diagnosis (1) Schizoaffective disorder, bipolar type: Status: Acute DS: Medications Discharge Medications Home Medications: Previous Rx's Medication Instructions Recorded cyanocobalamin (vitamin B-12) 100 100 mcg PO DAILY #30 tab 07/29/21 mcg tablet (Vitamin B-12) divalproex 500 mg tablet,extended 1,000 mg PO BEDTIME #30 tab 07/29/21 release 24 hr lorazepam 1 mg tablet 1 mg PO BID PRN #7 tab 07/29/21 melatonin 3 mg tablet 6 mg PO BEDTIME PRN #30 tab 07/29/21 multivitamin (Daily-Zo) 1 tab PO DAILY #30 tab 07/29/21 nicotine (polacrilex) 2 mg gum 4 mg BUCCAL Q1H PRN #60 ea 07/29/21 olanzapine 10 mg disintegrating 15 mg TRANSLINGUAL BID #30 tab 07/29/21 tablet Mental Status Exam Mental Status Exam Patient Appearance: Appropriate Patient Orientation: Person, Place and Time Level of Consciousness: Restless and Alert Patient Behavior: Guarded, Talkative, Posturing, Suspicious, Restless, Swearing, Anxious, Resistive to Care, Avoidant, Distractible, Impulsive and Poor Eye Contact Mood Description: Suspicious, Withdrawn, Constricted, Hostile, Labile, Angry, Sad, Apprehensive and Expansive Affect Description: Suspicious, Hostile, Labile and Angry Patient Cognition Impaired: No Ability to Follow Directions: Poor Speech Pattern: Perseverating, Spontaneous Speech, Soft-Spoken, Loud and Includes Profanity Memory Description: Episodic Impaired Delusions: Paranoid Ideation Thought Content: positive for Perseveration, positive for Poverty of Content and positive for Disorganized Abnormal Motor Activity Signs and Symptoms: Agitation and Restlessness Judgement: Poor Data Data Completed and Pending Completed studies during hospitalization [Text1]: 07/29/21 08:24 Valproic Acid 41.8 L 07/25/21 19:10 Urine clean catch - Clean Catch Midstream Urine Culture - Final No growth. Imaging Diagnostic Imaging Impressions Abdomen X-Ray 07/26/21 09:30 IMPRESSION: * No acute radiographic abnormalities in the abdomen. No evidence of renal stones. * Moderate amount of fecal material is present in the nondilated colon. DS: Summary Hospital Course Hospital Course: Admission to adult psychiatry to address symptom exacerbation of schizoaffective disorder. Prior to admission pt had stopped medications and had been using alcohol to self medicate. Pt stabilized when he returned to his regime of Depakote and Olanzapine. He did not require a medical detox. He accepted out patient treatment referrals, had a family meeting with his mother and plans to transition to an independent living situation which had been planned months prior to this admission. Time spent discussing smoking cessation with patient: 3 to 10 minutes Status at Discharge Functional status at discharge: independent ambulation Overall status at discharge: patient is back to baseline Time Spent with Patient Time attestation: Total time spent providing and/or coordinating discharge services: 35 Time spent: Greater than 30 minutes Discharge Plan Discharge Patient Disposition: Home, Self-Care Discharge Diagnosis: Schizoaffective Disorder, Bipolar Type Alcohol Use Disorder, Dependence, Moderate Referrals: [facility] [Primary Care Provider] - 1 Week Discharge Medications: New multivitamin [Daily-Zo] Tablet 1 tab PO DAILY Qty: 30 0RF cyanocobalamin (vitamin B-12) [Vitamin B-12] 100 mcg Tablet 100 mcg PO DAILY Qty: 30 0RF nicotine (polacrilex) 2 mg Gum 4 mg buccal Q1H PRN (Reason: Nicotine Cravings) Qty: 60 0RF melatonin 3 mg Tablet 6 mg PO BEDTIME PRN (Reason: insomnia) Qty: 30 1RF divalproex 500 mg Tablet Extended Release 24 Hr 1,000 mg PO BEDTIME Qty: 30 1RF olanzapine 10 mg Tablet,Disintegrating 15 mg translingual BID Qty: 30 1RF lorazepam 1 mg tablet 1 mg PO BID PRN (Reason: anxiety) Qty: 7 0RF Rx Instructions: Take 1 tablet twice a day for 2 days as needed, then 1 tablet daily for 2 days as needed, then one-half tablet daily for 2 days as needed, then discontinue Discharge Orders: Discharge Order (Routine); Ordered 07/29/21 Ordered By: Sabrina Hill Diet: advance to usual diet Activity on Discharge: As tolerated Stand Alone Forms: Patient Portal Discharge page, Community Support Care Plan Goals: Mood Stabilization Work on Sobriety Health Concerns: Schizoaffective Disorder, Bipolar Type Alcohol Use Disorder Plan of Treatment: Take medications as directed Attend follow up appointments Assessment: non-psychotic, non-suicidal Discharge Date/Time: 07/29/21 17:05
== END 2021-07-29 17:05 | disposition home or self-care (01) | DRG 750 ==
LOC: HO.ED 07-22 14:58 → HO.PM5 07-22 15:14
PROVIDERS: Nurse Practitioner Family; Psychiatry & Neurology Psychiatry; Admitting Provider Clinical Nurse Specialist Psychiatric/Mental Health, Adult; Emergency Provider Emergency Medicine; Visit Provider Clinical Nurse Specialist Psychiatric/Mental Health, Adult
DX: F25.0 Schizoaffective disorder, bipolar type (principal); F17.210 Nicotine dependence, cigarettes, uncomplicated; Z20.822 Contact with and (suspected) exposure to COVID-19; Z71.6 Tobacco abuse counseling; Z79.899 Other long term (current) drug therapy
CPT/HCPCS: 36415; 74021; 80061; 80164; 80307; 82607; 82746; 83036; 83735; 84439; 84443; 87086; 87635; 93005; 96372; 99285; J1200; J2060

== ENCOUNTER 2021-08-01 15:40 | Emergency (ER) | payer MEDICAID, SELFPAY ==
[2021-08-01 15:52] VITALS: BP 142/113; BP 178/86; PULSE 110; PULSE 112; RESP 18; TEMP 36.6; O2SAT 98; BMI 28.4
--- NOTE | 2021-08-01 16:12 | ED.PSYCH ---
HPI - Psych General Chief Complaint: Psychiatric Symptoms <JEANIE Tate - Last Filed: 08/01/21 17:37> Stated Complaint: hallucinations <JEANIE Tate Last Filed: 08/01/21 17:37> Time Seen by Provider: 08/01/21 15:54 <JEANIE Tate - Last Filed: 08/01/21 17:37> Source: patient and EMS <JEANIE Tate - Last Filed: 08/01/21 17:37> Mode of arrival: EMS <JEANIE Tate - Last Filed: 08/01/21 17:37> History of Present Illness HPI Narrative: 26-year-old male with a past medical history of ETOH abuse, bipolar, schizoaffective, presenting to ED via EMS reporting auditory and visual hallucinations. Patient references God, demons, birds. Patient also reporting he is between 2 dimensions, references a different Adi verses this Adi, also states he cannot look people in the eyes. Admits to using CBD. Denies other illicit substances or EtOH. Patient denies taking any of his prescribed medications since discharge on 07/29/21. Denies SI, HI, CP/SOB, abdominal pain Patient was recently discharged from our facility on 07/29 for psychosis/agitation. <JEANIE Tate - Last Filed: 08/01/21 17:37> MD complaint: hallucinations <JEANIE Tate - Last Filed: 08/01/21 17:37> Related Data Home Medications: Previous Rx's Medication Instructions Recorded cyanocobalamin (vitamin B-12) 100 100 mcg PO DAILY #30 tab 07/29/21 mcg tablet (Vitamin B-12) divalproex 500 mg tablet,extended 1,000 mg PO BEDTIME #30 tab 07/29/21 release 24 hr lorazepam 1 mg tablet 1 mg PO BID PRN #7 tab 07/29/21 melatonin 3 mg tablet 6 mg PO BEDTIME PRN #30 tab 07/29/21 multivitamin (Daily-Zo) 1 tab PO DAILY #30 tab 07/29/21 nicotine (polacrilex) 2 mg gum 4 mg BUCCAL Q1H PRN #60 ea 07/29/21 olanzapine 10 mg disintegrating 15 mg TRANSLINGUAL BID #30 tab 07/29/21 tablet <JEANIE Tate - Last Filed: 08/01/21 17:37> Allergies/Adverse Reactions: Allergies Allergy/AdvReac Type Severity Reaction Status Date / Time No Known Allergies Allergy Verified 12/27/19 19:33 [No Known Allergies*] <JEANIE Tate - Last Filed: 08/01/21 17:37> Review of Systems Review of Systems: Constitutional: No Fever, No Chills, No Fatigue, No Malaise ENT/Mouth: No Hearing loss, No Ear Pain, No Nasal Congestion Eyes: No Eye Pain, No Swelling, No Redness Cardiovascular: No Chest Pain, No SOB, No Edema, No Palpitations Respiratory: No Cough, No Sputum, No Dyspnea Gastrointestinal: No Nausea, No Vomiting, No Diarrhea, No Constipation, No Abdominal pain Genitourinary: No Dysuria, No Urinary Frequency, No Hematuria Musculoskeletal: No joint pain, No Myalgias, No Joint Swelling Skin: No Skin Lesions, No rash Neuro: No Weakness, No Numbness, No Paresthesias, No Loss of Consciousness, No Dizziness, No Headache Psych: No Anxiety/Panic, No Depression, No SI/HI, +AH/VH, No Social Issues <JEANIE Tate - Last Filed: 08/01/21 17:37> Yes all other systems are reviewed and are negative <JEANIE Tate - Last Filed: 08/01/21 17:37> [facility] Past Medical History Attestation statement: The following information was validated with the patient. <JEANIE Tate - Last Filed: 08/01/21 17:37> Medical History: Medical History Alcohol abuse Bipolar 1 disorder Schizoaffective disorder, bipolar type <JEANIE Tate - Last Filed: 08/01/21 17:37> Social History Social History: Social History Household Members: Family Housing: Apartment Do you presently have visiting nurse or other home services: No Alcohol intake: current Alcohol intake frequency: a few times a week Alcohol type: beer Patient Tobacco Use Status: Current everyday Tobacco user Tobacco use type: Cigarette Cigarettes Per Day: 12 e-Cigarette/Vaping Use: Never Used Second Hand Smoke Exposure: Yes Substance Use Type: Marijuana Advance Directives: No Advance Directives Information Provided: No service: No Sexual orientation: Straight/Heterosexual <JEANIE Tate - Last Filed: 08/01/21 17:37> Physical Exam Vital Signs: Vital Signs: Last Vital Signs Temp 96.8 F 08/02/21 00:33 Pulse 97 08/02/21 00:33 Resp 16 08/02/21 00:33 BP 130/95 H 08/02/21 00:33 Pulse Ox 97 08/02/21 00:33 BMI result Body Mass Index 28.4 <JEANIE Tate - Last Filed: 08/01/21 17:37> Vital Signs: Last Vital Signs Temp 96.8 F 08/02/21 00:33 Pulse 97 08/02/21 00:33 Resp 16 08/02/21 00:33 BP 130/95 H 08/02/21 00:33 Pulse Ox 97 08/02/21 00:33 BMI result Body Mass Index 28.4 <JEANIE Sorto - Last Filed: 08/02/21 01:34> Const: Other: Pacing around room during evaluation <JEANIE Tate - Last Filed: 08/01/21 17:37> General: cooperative <JEANIE Tate - Last Filed: 08/01/21 17:37> Orientation/consciousness: patient oriented x3 <JEANIE Tate - Last Filed: 08/01/21 17:37> Limitations: no limitations <JEANIE Tate - Last Filed: 08/01/21 17:37> HEENT: Head: Yes normal to inspection and Yes atraumatic <JEANIE Tate - Last Filed: 08/01/21 17:37> Ears: hearing grossly normal bilaterally <JEANIE Tate - Last Filed: 08/01/21 17:37> General nose exam: Normal external nose present <JEANIE Tate - Last Filed: 08/01/21 17:37> Face and sinus: Yes normal facial exam <JEANIE Tate - Last Filed: 08/01/21 17:37> Throat: Yes posterior oropharynx normal <Ida Coondanilot PA - Last Filed: 08/01/21 17:37> Eyes: General: appearance normal, both eyes and all related structures <Ida Pouldanilot PA - Last Filed: 08/01/21 17:37> Pupils: Equal, round and reactive pupils present <Ida Pouldanilot, PA - Last Filed: 08/01/21 17:37> EOM: EOMs intact bilaterally <Ida Pouldanilot, PA - Last Filed: 08/01/21 17:37> Neck: Neck: Yes normal visual inspection and Yes no meningeal signs <Ida Pouliot, PA - Last Filed: 08/01/21 17:37> Resp: Effort & Inspection: normal respiratory effort and no respiratory distress <Ida Pouldanilot, PA - Last Filed: 08/01/21 17:37> Auscultation: clear to auscultation bilaterally, no rales, no rhonchi and no wheezes <Ida Pouldanilot PA - Last Filed: 08/01/21 17:37> Cardio: Rate: regular rate <Ida Pouldanilot, PA - Last Filed: 08/01/21 17:37> Heart sounds: S1 normal heart sound present and S2 normal heart sound present <Ida Pouldanilot, PA - Last Filed: 08/01/21 17:37> GI: Inspection: Yes normal to inspection <Ida Pouldanilot PA - Last Filed: 08/01/21 17:37> : General: Yes no CVA tenderness <Ida Pouldanilot, PA - Last Filed: 08/01/21 17:37> Back/Spine/Pelvis: Back: no CVA tenderness <Ida Pouliot, PA - Last Filed: 08/01/21 17:37> Skin: Rashes: no rashes <Ida Pouldanilot, PA - Last Filed: 08/01/21 17:37> Wounds: no wounds <Ida Pouldanilot, PA - Last Filed: 08/01/21 17:37> Neuro: General: patient oriented x3, gait normal, tone normal, no meningeal signs, no focal motor deficits and CN's II-XI intact bilaterally <Ida Pouldanilot, PA - Last Filed: 08/01/21 17:37> Cranial nerves: Yes Equal, round and reactive pupils present <JEANIE Tate Last Filed: 08/01/21 17:37> Gait exam (Neuro): Normal gait present <JEANIE Tate Last Filed: 08/01/21 17:37> Extrem: General: Yes normal to inspection <JEANIE Tate Last Filed: 08/01/21 17:37> Psych: Appearance: grossly normal <JEANIE Tate Last Filed: 08/01/21 17:37> Speech and movement: Pressured speech present <JEANIE Tate Last Filed: 08/01/21 17:37> Attitude: Guarded attititude/behavior present and Avoids eye contact (attititude/behavior) <JEANIE Tate Last Filed: 08/01/21 17:37> Thought content: suicidality, no homicidality and Hallucination(s) present auditory and visual <JEANIE Tate Last Filed: 08/01/21 17:37> Insight: Poor insight present (Psych) <JEANIE Tate Last Filed: 08/01/21 17:37> Judgement: Poor judgement present (Psych) <JEANIE Tate Last Filed: 08/01/21 17:37> Course Course Course Narrative: -1800--ED care transferred to JEANIE Ambriz pending crisis evaluation. Physician observation initiated <JEANIE Tate Last Filed: 08/01/21 17:37> Reevaluation(s) Reevaluation #1: Spoke to Radha from the care team, plan is to give patient his medications every 6 hours, and discharge in the morning. They will not re-evaluate patient tomorrow morning. <JEANIE Sorto Last Filed: 08/02/21 01:34> MDM - Psych MDM Narrative Medical decision making narrative: 26-year-old male with a past medical history of ETOH abuse, bipolar, schizoaffective, presenting to ED via EMS reporting auditory and visual hallucinations. On exam hypertensive, tachycardic, actively pacing around the room during evaluation, avoiding eye contact, having active auditory and visual hallucinations. Cooperative. Concern for psychosis vs drug induced psychotic disorder vs medication noncompliance Plan: COVID-19 testing, GAYTAN, ethanol, depakote level, crisis eval <JEANIE Tate - Last Filed: 08/01/21 17:37> Differential Diagnosis Differential diagnosis: Likely acute psychosis, drug-induced psychotic disorder, mood disorder and schizoaffective disorder <JEANIE Tate - Last Filed: 08/01/21 17:37> Medical Records Attestation: I reviewed the patient's medical records. <JEANIE Tate - Last Filed: 08/01/21 17:37> Lab Data Attestation: I reviewed the patient's lab results. <JEANIE Tate - Last Filed: 08/01/21 17:37> Labs: Lab Results 08/01/21 08/01/21 08/01/21 Range/Units 16:36 16:36 16:36 Urine Opiates Screen (Not Detect) Urine Fentanyl Screen (Not Detect) Ur Barbiturates Screen (Not Detect) Valproic Acid < 2.0 L (50.0-100.0) mcg/mL Ur Phencyclidine Scrn (Not Detect) Ur Amphetamines Screen (Not Detect) U Benzodiazepines Scrn (Not Detect) Urine Cocaine Screen (Not Detect) U Marijuana (THC) Screen (Not Detect) Ethyl Alcohol < 10 mg/dL COVID-19 (LESLI) Negative (Negative) COVID-19 Clin Com See Note 08/01/21 Range/Units 16:42 Urine Opiates Screen Not Detected (Not Detect) Urine Fentanyl Screen Not Detected (Not Detect) Ur Barbiturates Screen Not Detected (Not Detect) Valproic Acid (50.0-100.0) mcg/mL Ur Phencyclidine Scrn Not Detected (Not Detect) Ur Amphetamines Screen Not Detected (Not Detect) U Benzodiazepines Scrn Not Detected (Not Detect) Urine Cocaine Screen Not Detected (Not Detect) U Marijuana (THC) Screen POSITIVE H (Not Detect) Ethyl Alcohol mg/dL COVID-19 (LESLI) (Negative) COVID-19 Clin Com <JEANIE Tate - Last Filed: 08/01/21 17:37> Lab Results 08/01/21 08/01/21 08/01/21 Range/Units 16:36 16:36 16:36 Urine Opiates Screen (Not Detect) Urine Fentanyl Screen (Not Detect) Ur Barbiturates Screen (Not Detect) Valproic Acid < 2.0 L (50.0-100.0) mcg/mL Ur Phencyclidine Scrn (Not Detect) Ur Amphetamines Screen (Not Detect) U Benzodiazepines Scrn (Not Detect) Urine Cocaine Screen (Not Detect) U Marijuana (THC) Screen (Not Detect) Ethyl Alcohol < 10 mg/dL COVID-19 (LESLI) Negative (Negative) COVID-19 Clin Com See Note 08/01/21 Range/Units 16:42 Urine Opiates Screen Not Detected (Not Detect) Urine Fentanyl Screen Not Detected (Not Detect) Ur Barbiturates Screen Not Detected (Not Detect) Valproic Acid (50.0-100.0) mcg/mL Ur Phencyclidine Scrn Not Detected (Not Detect) Ur Amphetamines Screen Not Detected (Not Detect) U Benzodiazepines Scrn Not Detected (Not Detect) Urine Cocaine Screen Not Detected (Not Detect) U Marijuana (THC) Screen POSITIVE H (Not Detect) Ethyl Alcohol mg/dL COVID-19 (LESLI) (Negative) COVID-19 Clin Com <JEANIE Sorto - Last Filed: 08/02/21 01:34> Critical Care Time Critical Care Time Critical Care Time: No <JEANIE Sorto - Last Filed: 08/02/21 01:34> Discharge Plan Discharge Clinical Impression: Schizoaffective disorder, bipolar type, Acute psychosis <JEANIE Tate - Last Filed: 08/01/21 17:37> Patient Disposition: Still a Patient <JEANIE Tate - Last Filed: 08/01/21 17:37> Prescriptions: No Action multivitamin [Daily-Zo] Tablet 1 tab PO DAILY Qty: 30 0RF cyanocobalamin (vitamin B-12) [Vitamin B-12] 100 mcg Tablet 100 mcg PO DAILY Qty: 30 0RF nicotine (polacrilex) 2 mg Gum 4 mg buccal Q1H PRN (Reason: Nicotine Cravings) Qty: 60 0RF melatonin 3 mg Tablet 6 mg PO BEDTIME PRN (Reason: insomnia) Qty: 30 1RF divalproex 500 mg Tablet Extended Release 24 Hr 1,000 mg PO BEDTIME Qty: 30 1RF olanzapine 10 mg Tablet,Disintegrating 15 mg translingual BID Qty: 30 1RF lorazepam 1 mg tablet 1 mg PO BID PRN (Reason: anxiety) Qty: 7 0RF Rx Instructions: Take 1 tablet twice a day for 2 days as needed, then 1 tablet daily for 2 days as needed, then one-half tablet daily for 2 days as needed, then discontinue <JEANIE Tate - Last Filed: 08/01/21 17:37>
[2021-08-01] MEDS: OLANZapine ODT 10 MG TAB.RAPDIS 15 MG TRANSLINGU (16:40)
[2021-08-01 17:04] LABS: COVID-19 Test Negative (Negative); IDNOW Serial# 16C4AD1C
--- NOTE | 2021-08-01 17:04 | PHA.MEDREC ---
MED REC COMPLETE, BASED OFF OF DISCHARGE FROM 3 DAYS PRIOR, PATIENT HAS NOT BEEN TAKING HIS MEDICATIONS Pharmacy Consult ? Medication Reconciliation Pharmacy has completed the medication reconciliation.
[2021-08-01 17:05] LABS: Ethanol < 10 mg/dL
[2021-08-01 17:15] LABS: Valproate < 2.0 mcg/mL (50.0-100.0)
[2021-08-01 17:43] VITALS: BP 160/94; PULSE 82; RESP 20; O2SAT 97
[2021-08-01 18:24] LABS: Amphetamine Screen Urine Not Detected (Not Detect); Barbiturates, Urine Not Detected (Not Detect); Benzodiazepines Screen Urine Not Detected (Not Detect); Cannabinoid Screen Urine POSITIVE (Not Detect); Cocaine Screen Urine Not Detected (Not Detect); Fentanyl, urine Not Detected (Not Detect); Opiate Screen Urine Not Detected (Not Detect); Phencyclidine Screen Urine Not Detected (Not Detect)
[2021-08-01] MEDS: LORazepam 1 MG TABLET PO (19:43)
[2021-08-01] MEDS: HaloperidoL 5 MG TABLET 10 MG PO (19:43)
--- NOTE | 2021-08-01 20:17 | MHC.CARE ---
Pt is a 26-year old male, who is known to [facility] and [facility] Crisis. He is being assessed by [facility] due to presenting religiously occupied. Pt references God, demons, birds and reporting he is between dimensions. He admits to using CBD and alcohol; and admits to not being complaint with medication since being discharged from inpatient on 07/29/21 where he was admitted for psychosis and agitation. Pt disclosed he does not like to take medications and has been self medicating with CBD and alcohol. He stated it relaxes me more . Pt reported he often drinks E&J with his friends while hanging out . He expressed he is scared about being shot. He asked TW to tell the voices to stop telling him he is failure. He stated they keep looking at me . He is observed responding to an internal stimuli. He asked TW if his brother is still alive due to the voices telling him he has been shot. Pt denied suicidal and homicidal ideation, plan or intent; and requested to be discharged. Mother - According to mother, pt was discharged about five days ago and has been non complaint with medications. Mother disclosed pt has been self medicating with alcohol and cannabis. She reported when pt is drinking, the voices increase . Mother explained she has attempted to connect pt with [facility] and obtain guardianship however shared that pt refused referral and guardianship was not granted. Mother denied any safety concerns however stated he is not well . Pt appears to be struggling to regulate his emotions due to being non compliant with medications. He was discharged on 07/29/21 from inpatient and has been self medicating with alcohol and cannabis. He presents with active auditory and visual hallucinations; and is experiencing increase anxiety. According to [facility] pharmacy, pt picked up medications this afternoon, however pt reported he has not re-started medications. He would most benefit from remaining at the ED and administered his prescribed medications overnight. He will be discharged in the morning. Pt will require transportation. POD RN and JEANIE Keith are agreeable with plan.
[2021-08-01] MEDS: Nicotine Polacrilex 2 MG GUM 4 MG BUCCAL (23:30)
[2021-08-02 00:33] VITALS: BP 130/95; PULSE 97; RESP 16; TEMP 36; O2SAT 97
--- NOTE | 2021-08-02 06:20 | PC.NURSE ---
Patient slept through the night, no distress observed/reported, behavior appropriate and non concerning, medication compliant, missed his HS depakote dose because pt was sleeping, disposition per care team is D/C home in the morning and care team will coordinate the ride home, VSS, will continue to monitor.
--- NOTE | 2021-08-02 07:16 | PC.NURSE ---
patient making requests about dc asking about pepper and coffee. patient appears in no distress
[2021-08-02] MEDS: Multivitamin TABLET 1 TAB PO (08:54)
[2021-08-02] MEDS: Cyanocobalamin (Vitamin B-12) 100 MCG TABLET PO (08:54)
[2021-08-02] MEDS: OLANZapine ODT 10 MG TAB.RAPDIS 15 MG TRANSLINGU (08:55)
== END 2021-08-02 09:14 | disposition home or self-care (01) ==
PROVIDERS: Physician Assistant; Emergency Provider Student in an Organized Health Care Education/Training Program
DX: F25.0 Schizoaffective disorder, bipolar type (principal); F23 Brief psychotic disorder; Z79.899 Other long term (current) drug therapy; Z20.822 Contact with and (suspected) exposure to COVID-19
CPT/HCPCS: 36415; 80164; 80307; 82077; 87635; 99284

== ENCOUNTER 2021-08-14 10:46 | Emergency (ER) | payer MEDICAID, SELFPAY ==
[2021-08-14 10:53] VITALS: PULSE 99; O2SAT 98
--- NOTE | 2021-08-14 11:07 | ED_ITS ---
HPI - General Adult General Chief complaint: Psychiatric Symptoms Stated complaint: CRISIS,HEARING VOICES PER EMS Time Seen by Provider: 08/14/21 11:07 Source: patient Mode of arrival: ambulatory Limitations: no limitations History of Present Illness HPI narrative: Patient is a 26 year old male presenting to the emergency department today with auditory hallucinations. Patient states that he is hearing voices, like he always does and we need to fix it. Patient denies any dizziness, lightheadedness, abdominal pain, nausea, vomiting, fever, chills, blurry vision, double vision, loss of vision, chest pain, difficulty breathing, shortness of breath, back pain, night sweats, pain with urination, increased urinary frequency, increased urinary urgency, blood in his urine or stool, syncope or a near syncopal episode, recent trauma or falls, bowel incontinence, bladder incontinence, bowel retention, bladder retention, or any other complaints at this time. Onset (ago): year(s) Severity: mild Severity scale (1-10): 1 Relieving factors: none Exacerbating factors: none Associated symptoms: denies other symptoms Treatments prior to arrival: none Related Data Previous Rx's Medication Instructions Recorded cyanocobalamin (vitamin B-12) 100 100 mcg PO DAILY #30 tabs 07/29/21 mcg tablet (Vitamin B-12) divalproex 500 mg tablet,extended 1,000 mg PO BEDTIME #30 tabs 07/29/21 release 24 hr lorazepam 1 mg tablet 1 mg PO BID PRN anxiety #7 tabs 07/29/21 melatonin 3 mg tablet 6 mg PO BEDTIME PRN insomnia #30 07/29/21 tabs multivitamin (Daily-Zo) 1 tab PO DAILY #30 tabs 07/29/21 nicotine (polacrilex) 2 mg gum 4 mg buccal Q1H PRN Nicotine 07/29/21 Cravings #60 ea olanzapine 10 mg disintegrating 15 mg translingual BID #30 tabs 07/29/21 tablet Allergies Allergy/AdvReac Type Severity Reaction Status Date / Time No Known Allergies Allergy Verified 12/27/19 19:33 [No Known Allergies*] Review of Systems Constitutional: Constitutional: Reports no additional constitutional complaints, Denies chills, Denies fever(s) and Denies night sweats Eyes: Eyes: Reports no additional eye complaints, Denies blurry vision, Denies change in vision, Denies diplopia, Denies eye discharge, Denies loss of vision and Denies eye pain ENT: Denies dizziness Cardiovascular: Cardiovascular: Reports no additional cardiovascular complaints, Denies chest pain, Denies lightheadedness, Denies Loss of Consciousness and Denies dyspnea Respiratory: Respiratory: Reports no additional respiratory complaints and Denies dyspnea Gastrointestinal: Gastrointestinal: Reports no additional gastrointestinal complaints, Denies abdominal pain, Denies melena, Denies hematochezia, Denies change in bowel habits and Denies change in stool character Genitourinary: Genitourinary: Reports no additional male genitourinary complaints, Denies hematuria, Denies oliguria, Denies difficulty urinating, Denies dysuria, Denies urinary frequency, Denies urinary hesitancy, Denies urinary incontinence and Denies urinary urgency Musculoskeletal: Musculoskeletal: Reports no additional musculoskeletal complaints, Denies numbness and Denies tingling Neurologic: Denies dizziness, Denies loss of vision, Denies numbness and Denies tingling Psychiatric: Psychiatric: Reports auditory hallucinations Endocrine: Endocrine: Reports no additional endocrine complaints Hematologic/Lymphatic: Hematologic/Lymphatic: Reports no additional hematologic/lymphatic complaints Allergic/Immunologic: Allergic/Immunologic: Reports no additional allergic/immunologic complaints PMFSH Past Medical History Attestation statement: The following information was validated with the patient. Source: old records reviewed Medical History Alcohol abuse Bipolar 1 disorder Social History Social History Household Members: Family Housing: Apartment Do you presently have visiting nurse or other home services: No Alcohol intake: current Alcohol intake frequency: a few times a week Alcohol type: beer Patient Tobacco Use Status: Current everyday Tobacco user Tobacco use type: Cigarette Cigarettes Per Day: 12 e-Cigarette/Vaping Use: Never Used Second Hand Smoke Exposure: Yes Substance Use Type: Marijuana Advance Directives: No Advance Directives Information Provided: No Healthcare Proxy: No Guardian: No service: No Sexual orientation: Straight/Heterosexual Physical Exam ED Vital Signs: Vital Signs - 24 hr 08/14/21 11:16 08/14/21 11:22 Temperature 98.8 F 98.8 F Pulse Rate 102 H 102 H Respiratory Rate 18 16 Blood Pressure 158/81 H 158/81 H Pulse Oximetry 96 96 Oxygen Delivery Method Room Air Room Air BMI result Body Mass Index 26.6 Const General: cooperative, no acute distress, alert and awake Nutritional Appearance: well nourished Orientation/consciousness: patient oriented x3 Limitations: no limitations HENMT Head: Yes normal to inspection and Yes atraumatic Ears: hearing grossly normal bilaterally and external ears normal General nose exam: Normal external nose present, no nasal discharge noted and no epistaxis Face and sinus: Yes normal facial exam, No abrasion and No laceration Mouth: Normal oral and palatal mucosa present, no drooling and no muffled voice Eyes General: appearance normal, both eyes and all related structures Periorbital: periorbital findings normal Eyelids: Yes eyelids normal Conjunctivae: conjunctivae normal Pupils: Equal, round and reactive pupils present EOM: EOMs intact bilaterally Neck Neck: Yes normal visual inspection, Yes full ROM and Yes no lymphadenopathy Chest Chest palpation & inspection: normal inspection of the chest Resp Effort & Inspection: normal respiratory effort and able to speak in complete sentences Auscultation: clear to auscultation bilaterally Cardio Rate: regular rate Rhythm: regular rhythm GI Inspection: Yes normal to inspection Neuro General: patient oriented x3 and moves all extremities Cranial nerves: Yes Equal, round and reactive pupils present Cognition (Neuro): normal cognition Motor exam (neuro): 5/5 motor strength present throughout Sensory Exam: Normal double simultaneous stimulation for sensation Coordination: [id number] test normal Extrem General: Yes normal to inspection, Yes full ROM and Yes capillary refill normal Psych Appearance: grossly normal Mental Status: mental status grossly normal Affect: Anxious affect present, Hostile affect present and Irritable affect present Attitude: cooperative Thought process: Normal thought process present Thought content: Hallucination(s) present auditory Insight: Limited insight present (Psych) Medical Decision Making MDM Narrative Medical decision making narrative: Patient is a 26 year old male presenting to the emergency department today with auditory hallucinations. Patient's physical exam showed an agitated individual. Patient's blood work was unremarkable. Patient's rapid COVID-19 test was positive. I explained my physical exam findings as well as all test results to the patient. I answered all questions asked by the patient. Patient is being placed on a section 12 with plan for in patient pyschiatric admission. Differential Diagnosis Differential Diagnosis: psychosis Medical Records Medical records reviewed: Yes I reviewed the patient's medical records. Lab Data Lab results reviewed: Yes I reviewed the patient's lab results. Result diagrams: 08/14/21 12:48 08/14/21 12:48 Labs: Lab Results 08/14/21 08/14/21 08/14/21 Range/Units 12:39 12:48 12:48 WBC 7.1 (4.8-10.8) X10*3/uL RBC 4.02 L (4.60-5.80) X10*6/uL Hgb 13.7 L (14.0-18.0) g/dl Hct 39.3 L (42.0-52.0) % MCV 97.8 (80.0-98.0) fL MCH 34.1 H (27.0-33.0) pg MCHC 34.9 (31.0-36.0) g/dl RDW 11.4 (11.0-16.0) % Plt Count 342 (160-400) X10*3/uL MPV 9.1 L (9.4-12.4) fL Immature Gran % (Auto) 0.6 H (0.0-0.4) % Neut % (Auto) 63.3 (45-73) % Lymph % (Auto) 24.1 (20-40) % Childress % (Auto) 9.9 (2-11) % Eos % (Auto) 1.8 (0-4) % Baso % (Auto) 0.3 (0-2) % Lymph # (Auto) 1.7 (1.2-4.9) X10*3/uL Childress # (Auto) 0.7 (0.1-1.2) X10*3/uL Eos # (Auto) 0.1 (0.0-0.4) X10*3/uL Baso # (Auto) 0.0 (0.0-0.2) X10*3/uL Abs Immat Gran (auto) 0.04 H (0.00-0.03) X10*3/uL Absolute Neuts (auto) 4.5 (2.0-8.3) x10*3/uL Absolute Nucleated RBC 0.000 (0.0-0.012) X10*3/uL Nucleated RBC % (auto) 0.0 (0.0-0.2) /100WBC Smear Tech's Comments VERIFIED Sodium 139 (135-145) mmol/L Potassium 4.2 (3.3-5.1) mmol/L Chloride 106 (96-108) mmol/L Carbon Dioxide 27 (22-29) mmol/L Anion Gap 10 L (12-20) BUN 12 D (9-16) mg/dL Creatinine 0.80 (0.5-1.4) mg/dL Estim Creat Clear Calc 124.0 Estimated GFR > 60 Random Glucose 104 (60-115) mg/dL Calcium 8.6 D (8.4-10.2) mg/dL Total Bilirubin 0.8 (0.0-1.0) mg/dL AST 93 H (5-37) U/L ALT 105 H (0-40) U/L Alkaline Phosphatase 67 (39-117) U/L Total Protein 6.5 (6.5-8.0) g/dL Albumin 3.9 D (3.5-5.0) g/dL TSH 0.38 (0.32-4.0) uIU/mL Urine Opiates Screen (Not Detect) Urine Fentanyl Screen (Not Detect) Ur Barbiturates Screen (Not Detect) Ur Phencyclidine Scrn (Not Detect) Ur Amphetamines Screen (Not Detect) U Benzodiazepines Scrn (Not Detect) Urine Cocaine Screen (Not Detect) U Marijuana (THC) Screen (Not Detect) COVID-19 (LESLI) Positive A (Negative) COVID-19 Clin Com See Note 08/14/21 Range/Units 16:29 WBC (4.8-10.8) X10*3/uL RBC (4.60-5.80) X10*6/uL Hgb (14.0-18.0) g/dl Hct (42.0-52.0) % MCV (80.0-98.0) fL MCH (27.0-33.0) pg MCHC (31.0-36.0) g/dl RDW (11.0-16.0) % Plt Count (160-400) X10*3/uL MPV (9.4-12.4) fL Immature Gran % (Auto) (0.0-0.4) % Neut % (Auto) (45-73) % Lymph % (Auto) (20-40) % Childress % (Auto) (2-11) % Eos % (Auto) (0-4) % Baso % (Auto) (0-2) % Lymph # (Auto) (1.2-4.9) X10*3/uL Childress # (Auto) (0.1-1.2) X10*3/uL Eos # (Auto) (0.0-0.4) X10*3/uL Baso # (Auto) (0.0-0.2) X10*3/uL Abs Immat Gran (auto) (0.00-0.03) X10*3/uL Absolute Neuts (auto) (2.0-8.3) x10*3/uL Absolute Nucleated RBC (0.0-0.012) X10*3/uL Nucleated RBC % (auto) (0.0-0.2) /100WBC Smear Tech's Comments Sodium (135-145) mmol/L Potassium (3.3-5.1) mmol/L Chloride (96-108) mmol/L Carbon Dioxide (22-29) mmol/L Anion Gap (12-20) BUN (9-16) mg/dL Creatinine (0.5-1.4) mg/dL Estim Creat Clear Calc Estimated GFR Random Glucose (60-115) mg/dL Calcium (8.4-10.2) mg/dL Total Bilirubin (0.0-1.0) mg/dL AST (5-37) U/L ALT (0-40) U/L Alkaline Phosphatase (39-117) U/L Total Protein (6.5-8.0) g/dL Albumin (3.5-5.0) g/dL TSH (0.32-4.0) uIU/mL Urine Opiates Screen Not Detected (Not Detect) Urine Fentanyl Screen Not Detected (Not Detect) Ur Barbiturates Screen Not Detected (Not Detect) Ur Phencyclidine Scrn Not Detected (Not Detect) Ur Amphetamines Screen Not Detected (Not Detect) U Benzodiazepines Scrn Not Detected (Not Detect) Urine Cocaine Screen Not Detected (Not Detect) U Marijuana (THC) Screen POSITIVE H (Not Detect) COVID-19 (LESLI) (Negative) COVID-19 Clin Com Discharge Plan Discharge Clinical Impression: Acute psychosis Patient Disposition: Still a Patient Prescriptions: No Action multivitamin [Daily-Zo] Tablet 1 tab PO DAILY Qty: 30 0RF cyanocobalamin (vitamin B-12) [Vitamin B-12] 100 mcg Tablet 100 mcg PO DAILY Qty: 30 0RF nicotine (polacrilex) 2 mg Gum 4 mg buccal Q1H PRN (Reason: Nicotine Cravings) Qty: 60 0RF melatonin 3 mg Tablet 6 mg PO BEDTIME PRN (Reason: insomnia) Qty: 30 1RF divalproex 500 mg Tablet Extended Release 24 Hr 1,000 mg PO BEDTIME Qty: 30 1RF olanzapine 10 mg Tablet,Disintegrating 15 mg translingual BID Qty: 30 1RF lorazepam 1 mg tablet 1 mg PO BID PRN (Reason: anxiety) Qty: 7 0RF Rx Instructions: Take 1 tablet twice a day for 2 days as needed, then 1 tablet daily for 2 days as needed, then one-half tablet daily for 2 days as needed, then discontinue Print Language: Libyan
[2021-08-14 11:16] VITALS: BP 158/81; PULSE 102; RESP 18; TEMP 37.1; O2SAT 96; BMI 26.6
[2021-08-14 11:22] VITALS: BP 158/81; PULSE 102; RESP 16; TEMP 37.1; O2SAT 96
[2021-08-14] MEDS: LORazepam 1 MG TABLET 2 MG PO ×2 (11:45→22:41)
[2021-08-14] MEDS: OLANZapine ODT 10 MG TAB.RAPDIS 20 MG TRANSLINGU (12:03)
--- NOTE | 2021-08-14 12:04 | PC.NURSE ---
PT ESCALATING, WALKING AROUND UNIT, INTERMITTENT YELLING. OXYGEN EQUIPMENT TECHNICIAN DOWN TO SEE PT. MED WITH ATIVAN AND OLANZAPINE ORDERED. SECURITY AND CARE TEAM PRESENT
--- NOTE | 2021-08-14 12:59 | PC.NURSE ---
PT IRRITABLE AND LOUD, YELLING OUT AT OTHER PT IN [facility], POSTURING AT THAT PT. SECURITY IN THE POD TO ASSIST WITH REDIRECTION. PT ACCEPTING OF PO MEDICATION AND REDIRECTION. CURRENTLY PT IN THE COMMUNITY AREA WATCHING TV, ALLOWING BLOOD WORK TO BE DONE.
[2021-08-14 13:02] LABS: COVID-19 Test Positive (Negative); IDNOW Serial# 16C4AD1C
[2021-08-14 13:04] LABS: Basophils Percent Auto 0.3 % (0-2); Eosinophils Absolute Auto 0.1 X10*3/uL (0.0-0.4); Eosinophils Percent Auto 1.8 % (0-4); Hematocrit 39.3 % (42.0-52.0); Hemoglobin 13.7 g/dl (14.0-18.0); Imm Gran Abs Auto 0.04 X10*3/uL (0.00-0.03); Imm Gran Pct Auto 0.6 % (0.0-0.4); Lymphocytes Absolute Auto 1.7 X10*3/uL (1.2-4.9); Lymphocytes Percent Auto 24.1 % (20-40); MANUAL DIFF FLAG SCAN; Mean Corpuscular HGB Conc 34.9 g/dl (31.0-36.0); Mean Corpuscular Hemoglobin 34.1 pg (27.0-33.0); Mean Corpuscular Volume 97.8 fL (80.0-98.0); Mean Platelet Volume 9.1 fL (9.4-12.4); Monocytes Absolute Auto 0.7 X10*3/uL (0.1-1.2); Monocytes Percent Auto 9.9 % (2-11); Neutrophils Absolute Auto 4.5 x10*3/uL (2.0-8.3); Neutrophils Percent Auto 63.3 % (45-73); Platelet Count 342 X10*3/uL (160-400); Red Blood Count 4.02 X10*6/uL (4.60-5.80); Red Cell Distribution Width 11.4 % (11.0-16.0); SCAN SMEAR FLAG 1; White Blood Count 7.1 X10*3/uL (4.8-10.8)
[2021-08-14 13:27] LABS: Alanine Aminotransferase 105 U/L (0-40); Albumin Level 3.9 g/dL (3.5-5.0); Alkaline Phosphatase 67 U/L (39-117); Anion Gap 10 (12-20); Aspartate Amino Transferase 93 U/L (5-37); Bilirubin Total 0.8 mg/dL (0.0-1.0); Blood Urea Nitrogen 12 mg/dL (9-16); Calcium 8.6 mg/dL (8.4-10.2); Carbon Dioxide 27 mmol/L (22-29); Chloride 106 mmol/L (96-108); Estimated Glomerular Filt Rate > 60; Glucose Random 104 mg/dL (60-115); Potassium 4.2 mmol/L (3.3-5.1); Sodium 139 mmol/L (135-145); Total Protein 6.5 g/dL (6.5-8.0)
[2021-08-14 13:43] LABS: Thyroid Stimulating Hormone 0.38 uIU/mL (0.32-4.0)
[2021-08-14 13:44] LABS: SLIDE REVIEW VERIFIED
[2021-08-14 16:55] LABS: Amphetamine Screen Urine Not Detected (Not Detect); Barbiturates, Urine Not Detected (Not Detect); Benzodiazepines Screen Urine Not Detected (Not Detect); Cannabinoid Screen Urine POSITIVE (Not Detect); Cocaine Screen Urine Not Detected (Not Detect); Fentanyl, urine Not Detected (Not Detect); Opiate Screen Urine Not Detected (Not Detect); Phencyclidine Screen Urine Not Detected (Not Detect)
[2021-08-14] MEDS: HaloperidoL 5 MG TABLET PO (22:41)
--- NOTE | 2021-08-15 06:03 | PC.NURSE ---
Patient slept intermittently, behavior non concerning, mood depressed with low tolerance to frustration, medication compliant, Prn Ativan 2 mg po and Haldol 5 mg PO administered at 2241 with + effect, disposition per care team is section 12 inpatient bed search, patient is COVID + needs constant redirection to quarantine himself, patient refused EKG despite repeated approach, will continue to monitor.
--- NOTE | 2021-08-15 07:19 | PC.NURSE ---
patient appears to remain asleep at present respirations are even and unlabored patient appears in no distress
[2021-08-15] MEDS: OLANZapine 10 MG TABLET 20 MG PO ×2 (08:20→21:46)
[2021-08-15 09:30] LABS: MANUAL DIFF FLAG NO
[2021-08-15 09:35] LABS: Basophils Percent Auto 0.2 % (0-2); Eosinophils Absolute Auto 0.2 X10*3/uL (0.0-0.4); Eosinophils Percent Auto 2.6 % (0-4); Hematocrit 44.2 % (42.0-52.0); Hemoglobin 14.9 g/dl (14.0-18.0); Imm Gran Abs Auto 0.03 X10*3/uL (0.00-0.03); Imm Gran Pct Auto 0.5 % (0.0-0.4); Lymphocytes Absolute Auto 1.4 X10*3/uL (1.2-4.9); Lymphocytes Percent Auto 24.6 % (20-40); Mean Corpuscular HGB Conc 33.7 g/dl (31.0-36.0); Mean Corpuscular Hemoglobin 33.3 pg (27.0-33.0); Mean Corpuscular Volume 98.7 fL (80.0-98.0); Mean Platelet Volume 9.1 fL (9.4-12.4); Monocytes Absolute Auto 0.6 X10*3/uL (0.1-1.2); Monocytes Percent Auto 9.7 % (2-11); Neutrophils Absolute Auto 3.7 x10*3/uL (2.0-8.3); Neutrophils Percent Auto 62.4 % (45-73); Platelet Count 342 X10*3/uL (160-400); Red Blood Count 4.48 X10*6/uL (4.60-5.80); Red Cell Distribution Width 11.4 % (11.0-16.0); White Blood Count 5.9 X10*3/uL (4.8-10.8)
--- NOTE | 2021-08-15 12:14 | PC.NURSE ---
client repeatedly coming out of room despite remindrs to remain there d/t covid status
[2021-08-15] MEDS: LORazepam 1 MG TABLET 2 MG PO ×2 (14:01→21:46)
--- NOTE | 2021-08-15 16:05 | PC.NURSE ---
temperature was 96.0. Patient reports having chills and being cold, requesting several warm blankets.
--- NOTE | 2021-08-15 16:48 | PC.NURSE ---
Due to COVID 19 precautions patient is confined to his room, SHIPMAN gave patient crayons, coloring pages, word games, and word searches to complete independently. Patient initially refused stating he just wants to go home, but did end up accepting them.
[2021-08-15] MEDS: Nicotine Polacrilex 2 MG GUM BUCCAL (17:54)
[2021-08-15] MEDS: HaloperidoL 5 MG TABLET PO (19:27)
[2021-08-15 19:31] VITALS: BP 148/101; PULSE 93; TEMP 37.1; O2SAT 98
--- NOTE | 2021-08-16 | ECG_ITS ---
Test Reason : AMS Blood Pressure : / mmHG Vent. Rate : 082 BPM Atrial Rate : 082 BPM P-R Int : 134 ms QRS Dur : 074 ms QT Int : 334 ms P-R-T Axes : 044 116 055 degrees QTc Int : 390 ms Normal sinus rhythm Right axis deviation Abnormal ECG When compared with ECG of 22-JUL-2021 07:25, No significant change was found Referred By: Marisa Bonds Electronically Signed By:Ji Roach
[2021-08-16] MEDS: LORazepam 1 MG TABLET 2 MG PO ×2 (04:00→10:13)
[2021-08-16] MEDS: HaloperidoL 5 MG TABLET PO ×2 (04:00→10:13)
[2021-08-16 04:50] VITALS: BP 133/91; PULSE 84; RESP 16; TEMP 37; O2SAT 100
--- NOTE | 2021-08-16 06:36 | PC.NURSE ---
Patient slept intermittently, behavior non concerning, mood depressed with low tolerance to frustration, medication compliant, Prn Ativan 2 mg po and Haldol 5 mg PO administered at 0400 with + effect, disposition per care team is section 12 inpatient bed search, patient is COVID + needs constant redirection to quarantine himself, patient constantly requesting hot tray, will continue to monitor.
--- NOTE | 2021-08-16 07:33 | PC.NURSE ---
this sba underwriter assumed care of this pt at 0700. pt was yelling, threw his breakfast tray on the floor and attempted to leave his room stating I want a McChicken sandwich . pt was reminded that he should stay in his room because of his COVID + status. security intervened and redirected pt to his room and asked him to picker his breakfast tray from the floor. he was compliant with picking up tray and staying in his room. pt current laying in bed with the light off. will continue to observe.
[2021-08-16 08:06] VITALS: BP 142/93; PULSE 108; RESP 18; TEMP 36.7; O2SAT 98
[2021-08-16] MEDS: OLANZapine 10 MG TABLET 20 MG PO ×2 (08:24→21:15)
--- NOTE | 2021-08-16 10:15 | PC.NURSE ---
pt c/o agitation and anxiety, he requested something to help calm him down. prn meds given as documented. no issues observed/report.
[2021-08-16 16:15] VITALS: BP 145/94; PULSE 93; RESP 20; TEMP 36.1; O2SAT 99
[2021-08-16 20:34] LABS: COVID-19 Test Positive (Negative)
[2021-08-16 23:40] VITALS: BP 128/88; PULSE 88; RESP 16; TEMP 36; O2SAT 97
[2021-08-17] MEDS: LORazepam 1 MG TABLET 2 MG PO ×4 (00:12→23:11)
[2021-08-17] MEDS: HaloperidoL 5 MG TABLET PO ×4 (00:12→23:11)
[2021-08-17] MEDS: Nicotine Polacrilex 2 MG GUM BUCCAL ×2 (03:40→05:51)
--- NOTE | 2021-08-17 06:12 | PC.NURSE ---
Patient slept intermittently, behavior non concerning, medication compliant, Prn Ativan 2 mg po and Haldol 5 mg PO administered at 0012 with + effect, disposition per care team is section 12 inpatient bed search, patient is COVID + needs constant redirection to quarantine himself, VSS, will continue to monitor
[2021-08-17] MEDS: OLANZapine 10 MG TABLET 20 MG PO ×2 (08:15→21:06)
--- NOTE | 2021-08-17 10:30 | PC.NURSE ---
PT REQUEST MEDICATION FOR ANXIETY/AGITATION. PT TEARFUL AND APOLOGIZED TO STAFF FOR HIS BEHAVIOR. HE DENIES SI/HI. PT PACING AND ASKING WHEN CAN HE LEAVE. NO ISSUES OBSERVED/REPORTED. WILL CONTINUE TO OBSERVE.
--- NOTE | 2021-08-17 12:23 | PC.NURSE ---
PT OUT OF ROOM YELLING THAT HE WANTS TO GO HOME AND THAT HIS MOTHER IS COMING TO PICK HIM UP. THE MHT TOLD HIM THAT HE IS NOT DISCHARGED AND HE STATED TO HER LITTLE GIRL I WILL DROP YOU . SECURITY WAS CALL TO THE POD, PT CONTINUED SAYING THAT HE IS LEAVING TODAY. THIS ASPARAGUS CUTTER NOTIFIED ALVARO, FROM CARE TEAM. PT WAS REDIRECTED BACK TO HIS ROOM BY SECURITY. NO OTHER ISSUES OBSERVED.
[2021-08-17 13:44] VITALS: BP 130/95; PULSE 102; RESP 16; TEMP 36.6; O2SAT 100
--- NOTE | 2021-08-18 06:02 | PC.NURSE ---
Patient slept intermittently, behavior non concerning, medication compliant, Prn Ativan 2 mg po and Haldol 5 mg PO administered at 2311 with + effect, disposition per care team is section 12 inpatient bed search, patient is COVID + needs constant redirection to follow quarantine protocol, VSS, will continue to monitor
[2021-08-18 07:47] VITALS: BP 139/85; PULSE 114; RESP 17; TEMP 36.1; O2SAT 99
--- NOTE | 2021-08-18 08:21 | PC.NURSE ---
has remained calm and cooperative, asking to ambulate in [place], pt advised he may walk in hallway so long as he wears mask, pt agreeable.
[2021-08-18] MEDS: OLANZapine 10 MG TABLET 20 MG PO (08:46)
[2021-08-18] MEDS: LORazepam 1 MG TABLET 2 MG PO (09:33)
[2021-08-18] MEDS: Nicotine 14 MG PATCH.TD24 TRANSDERMA (10:04)
--- NOTE | 2021-08-18 12:30 | P.CNPS_ITS ---
History of Present Illness Date of Service: 08/18/2021 Chief Complaint: CRISIS,HEARING VOICES PER EMS Reason for Consult: delusions and psychosis Discussed with referring provider: Yes HPI Narrative: Mr. Lockhart is a 26 year-old male with hx of schizoaffective disorder bipolar type who self presented reporting increase AH, zoroastrianism delusions talking about him being able to make pack with GOD and allow people to vote. In the Ed his utox was positive for TSH. He initially presented as hyperverbal, agitated, talking to himself. He reported not being able to sleep for several days. He agreed to re-start olanzapine. Today, pt presents as much calmer, reports he is not hearing voices as much. He is not insisting on telling people what their future will be or intrusive with peers. He states that's gone. He reports he has been taking olanzapine twice a day. He reports some sleepiness in the morning but also reports his thoughts are more clear. He also reports feeling less anxious and restless. Pt used to be on depakote but LFTs elevated. Will consider lithium instead as mood stabilizer. He denies SI/HI. Past Psychiatric History: IP- 2019 [facility], other inpt stays by history. OP-[facility]. No current providers. 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 Diagnostics Vital Signs (24Hr): Vital Signs - 24 hr 08/17/21 13:44 08/18/21 07:47 Temperature 97.9 F 97.0 F Pulse Rate 102 H 114 H Respiratory Rate 16 17 Blood Pressure 130/95 H 139/85 Pulse Oximetry 100 99 Oxygen Delivery Method Room Air Room Air BMI result Body Mass Index 26.6 Labs Results: 08/15/21 09:25 08/14/21 12:48 Labs: Laboratory Results - last 48 hr 08/16/21 19:41 COVID-19 (LESLI) Positive A COVID-19 Clin Com See Note Mental Status Exam Mental Status Exam Narrative: Appearance: casually groomed, fair hygiene in NAD Behavior:cooperative psychomotor: no agitation or retardation Speech: clear, normal rate/rhythm/volume, spontaneous Thought process:linear Thought content: no signs of psychosis, wanting to go home soon Mood: okay Affect: congruent SI:none HI:none VH/AH:much less Delusions:less zoroastrianism delusions Insight/judgment:improving x 2. Memory/cog: alert, oriented x 3. grossly intact. Medications Medications Current Medications Haloperidol (Haloperidol 5 Mg Tablet) 5 mg PO Q6H PRN PRN Reason: Agitation Last Admin: 08/17/21 23:11 Dose: 5 mg Lorazepam (Lorazepam 1 Mg Tablet) 2 mg PO Q6H PRN PRN Reason: agitation give w/haldol Last Admin: 08/18/21 09:33 Dose: 2 mg Nicotine Polacrilex (Nicotine Polacrilex 2 Mg Gum) 2 mg BUCCAL QID PRN PRN Reason: Nicotine Cravings Last Admin: 08/17/21 05:51 Dose: 2 mg Olanzapine (Olanzapine 10 Mg Tablet) 20 mg PO BID FANNIE Last Admin: 08/18/21 08:46 Dose: 20 mg Allergies Allergies Allergy/AdvReac Type Severity Reaction Status Date / Time No Known Allergies Allergy Verified 12/27/19 19:33 [No Known Allergies*] Assessment & Plan Assessment & Plan (1) Schizoaffective disorder, bipolar type: Status: Acute Code(s): F25.0 - Schizoaffective disorder, bipolar type Plan Mr. Lockhart is a 26 year-old male with hx of schizoaffective disorder bipolar type. Usually presents with AH, zoroastrianism delusions, pt initially self presented as very agitated, stating he had made pack with devil and God, he was intrusive to peers and staff telling them their john. Utox positive for cannabinoids. Today, pt presents as much calmer, less internally preoccupied, less impulsive and intrusive. No SI/HI. Needs follow up with OP providers, but he states he does not have one. Do not recommend at this time to restart depakote due to elevated LFTs. PLAN 1. Pt presents as much more stable psychiatrically. No imminent safety concerns in terms of SI.HI, or gravely impaired due to psychotic/delusional symptoms. However, pt needs to connect with services to avoid coming back too quickly to ED. 2. Can consider d/c home with follow up appointments with his OP providers. Please give RX for Olanzapine 20mg po BID. I spent minutes with the patient and/or on the patient floor today, greater than?50% of which was spent counseling/coordinating care.
[2021-08-18 14:00] LABS: Alanine Aminotransferase 63 U/L (0-40); Albumin Level 4.3 g/dL (3.5-5.0); Alkaline Phosphatase 89 U/L (39-117); Aspartate Amino Transferase 25 U/L (5-37); Bilirubin Direct < 0.2 mg/dL (0.0-0.5); Bilirubin Total 0.4 mg/dL (0.0-1.0); Total Protein 7.5 g/dL (6.5-8.0)
--- NOTE | 2021-08-18 17:57 | MHC.CARE ---
CARE Team spoke with patient several times throughout the day while his disposition was in process of changing as the psychiatric provider determined him able to discharge and called in prescriptions to pharmacy. He was anxious to leave and asked several times though was not intrusive, was polite and redirectable. Discussed with patient taking home medications, he reported that he has been taking them but may have missed dosed, another pill was supposed to be cut in half but that was too difficult so he just takes the whole tablet. He stated that he wants to stay out of the hospital and feels better on the medication because he thinks clearly, stays out of trouble and his mother is happy with him. CARE Team will make referrals to [facility]s [facility] urgent treatment program and they will contact him within 24-48 hrs, patient is agreeable to outpatient providers and knows to expect that phone call. Spoke to patient?s mother via [employer] personnel clerks supervisor services. She again expressed concern that her son will not take his medications and does not want him to keep repeating this cycle. Explained that at this time, patient is stable on the correct medication, is not behaving with any concern and appears clear without delusional thinking. In addition, has agreed to outpatient providers and to continue taking the medication. A primary care physician or possibly a psychiatrist can refer patient to VNA services but will not force him to take medications. Mother will pick up worker patient from the emergency dept and bring him home shortly. Disposition discussed with ED provider, JEANIE Rivero and supervisor carbon electrodes, PERLA Lowery
== END 2021-08-18 17:26 | disposition home or self-care (01) ==
PROVIDERS: Physician Assistant; Physician Assistant Medical; Social Worker; Emergency Provider Student in an Organized Health Care Education/Training Program
DX: U07.1 COVID-19 (principal); F23 Brief psychotic disorder; F25.0 Schizoaffective disorder, bipolar type; R00.0 Tachycardia, unspecified; F17.200 Nicotine dependence, unspecified, uncomplicated; F12.90 Cannabis use, unspecified, uncomplicated; Z79.899 Other long term (current) drug therapy
CPT/HCPCS: 36415; 80053; 80076; 80307; 84443; 85025; 87635; 93005; 99285

== ENCOUNTER 2021-08-20 04:46 | Emergency (ER) | payer MEDICAID, SELFPAY ==
[2021-08-20 04:50] VITALS: BP 130/86; PULSE 103; RESP 16; TEMP 36.6; O2SAT 98; BMI 29.8
[2021-08-20 05:08] LABS: COVID-19 Test Positive (Negative)
[2021-08-20 05:18] LABS: Amphetamine Screen Urine Not Detected (Not Detect); Barbiturates, Urine Not Detected (Not Detect); Benzodiazepines Screen Urine Not Detected (Not Detect); Cannabinoid Screen Urine POSITIVE (Not Detect); Cocaine Screen Urine Not Detected (Not Detect); Fentanyl, urine Not Detected (Not Detect); Opiate Screen Urine Not Detected (Not Detect); Phencyclidine Screen Urine Not Detected (Not Detect)
--- NOTE | 2021-08-20 06:11 | PC.NURSE ---
Patient is in bed appears sleeping, no distress observed/reported, behavior non concerning at this time, med rec completed/pending provider's approval, patient continues with + for covid, last tested positive was on 08/14/21, [facility] referral completed/confirmed/pending ETA, will continue to monitor.
--- NOTE | 2021-08-20 07:07 | ED_ITS ---
HPI - Psych General Chief Complaint: Psychiatric Symptoms Stated Complaint: CRISIS Time Seen by Provider: 08/20/21 07:06 Source: patient Mode of arrival: ambulatory Limitations: no limitations History of Present Illness MD complaint: hallucinations Onset (ago): year(s) Duration: intermittent History of same: Yes Relieving factors: none Exacerbating factors: none Context: other Associated psychiatric symptoms: auditory hallucinations Associated symptoms: denies other symptoms Treatments prior to arrival: none Related Data Previous Rx's Medication Instructions Recorded cyanocobalamin (vitamin B-12) 100 100 mcg PO DAILY #30 tabs 07/29/21 mcg tablet (Vitamin B-12) divalproex 500 mg tablet,extended 1,000 mg PO BEDTIME #30 tabs 07/29/21 release 24 hr lorazepam 1 mg tablet 1 mg PO BID PRN anxiety #7 tabs 07/29/21 melatonin 3 mg tablet 6 mg PO BEDTIME PRN insomnia #30 07/29/21 tabs multivitamin (Daily-Zo) 1 tab PO DAILY #30 tabs 07/29/21 nicotine (polacrilex) 2 mg gum 4 mg buccal Q1H PRN Nicotine 07/29/21 Cravings #60 ea olanzapine 10 mg disintegrating 15 mg translingual BID #30 tabs 07/29/21 tablet Allergies Allergy/AdvReac Type Severity Reaction Status Date / Time No Known Allergies Allergy Verified 12/27/19 19:33 [No Known Allergies*] Review of Systems Review of Systems: Constitutional : No Fever, No Chills ENT/Mouth : No Ear Pain, No Nasal Congestion, No sore throat Eyes: No Eye Pain, No Swelling, No Redness Cardiovascular : No Chest Pain, No SOB Respiratory : No Cough, No Sputum, No Dyspnea Gastrointestinal : No Nausea, No Vomiting, No Diarrhea, No Hematochezia, No Melena Genitourinary : No Dysuria, No Urinary Frequency, No Hematuria Musculoskeletal : No Myalgias Skin : No Skin Lesions, No rash Neuro : No Weakness, No Numbness, No Paresthesias, No Dizziness, No Headache Psych : positive Anxiety, no Depression, no SI/HI, pos AH Heme/Lymph: No Lymphadenopathy Endocrine : No Polyuria, No Polydipsia All other systems reviewed and are negative PMFSH Past Medical History Medical History Alcohol abuse Bipolar 1 disorder Social History Social History Household Members: Family Housing: Apartment Do you presently have visiting nurse or other home services: No Alcohol intake: current Alcohol intake frequency: a few times a week Alcohol type: beer Patient Tobacco Use Status: Current everyday Tobacco user Tobacco use type: Cigarette Cigarettes Per Day: 12 e-Cigarette/Vaping Use: Never Used Second Hand Smoke Exposure: Yes Substance Use Type: Marijuana Advance Directives: No service: No Sexual orientation: Straight/Heterosexual Physical Exam Vital Signs: Vital Signs: Last Vital Signs Temp 97.8 F 08/20/21 04:50 Pulse 103 H 08/20/21 04:50 Resp 16 08/20/21 04:50 BP 130/86 08/20/21 04:50 Pulse Ox 98 08/20/21 04:50 O2 Del Method 08/20/21 04:50 BMI result Body Mass Index 29.8 Appearance: Alert. Oriented X3. No acute distress. asking for hot food has no complaints wants to go home. Eyes: Pupils equal, round and reactive to light. ENT: Pharynx normal. Neck: Normal inspection. Neck supple. CVS: Normal heart rate and rhythm. Pulses normal. Respiratory: No respiratory distress. Breath sounds normal. Abdomen: Soft and nontender. Skin: Skin warm and dry. Normal skin color. Normal skin turgor. Extremities: No lower extremity edema. No calf ttp Neuro: Oriented X 3. No motor deficit. No sensory deficit. MDM - Psych MDM Narrative Medical decision making narrative: 26 yo male hx of schizoaffective, psychosis chronic hallucinations smoking weed last night got overwhelmed c/o AH but no self harm no SI, no HI now feels better after sleeping and wants to go home. He is calm cooperative, coherent. Stable for DC at this time Lab Data Labs: Lab Results 08/20/21 08/20/21 Range/Units 04:53 04:57 Urine Opiates Screen Not Detected (Not Detect) Urine Fentanyl Screen Not Detected (Not Detect) Ur Barbiturates Screen Not Detected (Not Detect) Ur Phencyclidine Scrn Not Detected (Not Detect) Ur Amphetamines Screen Not Detected (Not Detect) U Benzodiazepines Scrn Not Detected (Not Detect) Urine Cocaine Screen Not Detected (Not Detect) U Marijuana (THC) Screen POSITIVE H (Not Detect) COVID-19 (LESLI) Positive A (Negative) COVID-19 Clin Com See Note Discharge Plan Discharge Clinical Impression: Schizoaffective disorder, bipolar type, COVID-19 Patient Disposition: Home, Self-Care Instructions: Schizoaffective Disorder (ED), COVID-19 (Coronavirus Disease 2019) (ED) Additional Instructions: return to ED for any worsening symptoms or concerns Prescriptions: No Action multivitamin [Daily-Zo] Tablet 1 tab PO DAILY Qty: 30 0RF cyanocobalamin (vitamin B-12) [Vitamin B-12] 100 mcg Tablet 100 mcg PO DAILY Qty: 30 0RF nicotine (polacrilex) 2 mg Gum 4 mg buccal Q1H PRN (Reason: Nicotine Cravings) Qty: 60 0RF melatonin 3 mg Tablet 6 mg PO BEDTIME PRN (Reason: insomnia) Qty: 30 1RF divalproex 500 mg Tablet Extended Release 24 Hr 1,000 mg PO BEDTIME Qty: 30 1RF olanzapine 10 mg Tablet,Disintegrating 15 mg translingual BID Qty: 30 1RF lorazepam 1 mg tablet 1 mg PO BID PRN (Reason: anxiety) Qty: 7 0RF Rx Instructions: Take 1 tablet twice a day for 2 days as needed, then 1 tablet daily for 2 days as needed, then one-half tablet daily for 2 days as needed, then discont inue
--- NOTE | 2021-08-20 07:17 | PC.NURSE ---
pt received in room, eating breakfast. seen by Dr Johnson, dispo pending. In no acute distress at this time.
--- NOTE | 2021-08-20 17:59 | MHC.CARE ---
LATE ENTRY 1030 Follow up call to patient, discussed his visit to the ED this morning, he stated that he smoked marijuana and got anxious but feels good now,? he sounded alert and clear, was pleasant, easily conversed. Said that he does not have anymore Ativan or would have taken it at home instead of coming to the hospital--added that only takes it when he needs it and knows that he can be addicted easily. Patient reported that since leaving the ED on Wednesday he has taken the prescribed medication and his mother helped him cut the pill he needed to take only half of. ?Denied having confused thoughts or hallucinations. Advised patient that the referral to [facility] just went it through so he should expect a call today or tomorrow to make an appointment. Reminded him to call crisis or return to the ED if needed.
== END 2021-08-20 07:40 | disposition home or self-care (01) ==
PROVIDERS: Emergency Provider Emergency Medicine
DX: U07.1 COVID-19 (principal); R44.0 Auditory hallucinations; F17.210 Nicotine dependence, cigarettes, uncomplicated; F12.10 Cannabis abuse, uncomplicated; Z71.6 Tobacco abuse counseling; Z79.899 Other long term (current) drug therapy
CPT/HCPCS: 80307; 87635; 99284

== ENCOUNTER 2021-08-20 20:41 | Emergency (ER) | payer MEDICAID, SELFPAY ==
[2021-08-20 20:51] VITALS: BP 159/106; PULSE 104; RESP 16; TEMP 36.3; O2SAT 97; BMI 28.2
[2021-08-20 21:34] LABS: COVID-19 Test Negative (Negative); IDNOW Serial# 16C4AD1C
[2021-08-20 21:35] LABS: Amphetamine Screen Urine Not Detected (Not Detect); Barbiturates, Urine Not Detected (Not Detect); Benzodiazepines Screen Urine Not Detected (Not Detect); Cannabinoid Screen Urine POSITIVE (Not Detect); Cocaine Screen Urine Not Detected (Not Detect); Fentanyl, urine Not Detected (Not Detect); Opiate Screen Urine Not Detected (Not Detect); Phencyclidine Screen Urine Not Detected (Not Detect)
[2021-08-20] MEDS: HaloperidoL 5 MG TABLET PO (21:39)
[2021-08-20] MEDS: LORazepam 1 MG TABLET 2 MG PO (21:39)
--- NOTE | 2021-08-20 21:45 | ED_ITS ---
HPI - Psych General Chief Complaint: Psychiatric Symptoms Stated Complaint: CRISIS Time Seen by Provider: 08/20/21 21:27 Source: patient, EMS, RN notes reviewed and old records reviewed Mode of arrival: EMS Limitations: no limitations History of Present Illness HPI Narrative: 26-year-old male with a history of schizoaffective disorder, bipolar type, history of acute psychosis with [place] [facility] [place] to 07/29/2021 who presents back to the ER for evaluation of jazmine and hallucinations. He was seen in the ER this morning for chronic hallucinations after smoking marijuana last night. He was discharged home, calm and cooperative. He comes back to the ER today reporting that God is living in his own apartment in taking care of him. He is his loyal servant. He wants to be will back home to be with God and Bogdan who is a friend who is helping to take care of his apartment. He is hearing voices. He denies any suicidal thoughts. Of note patient was noted to be COVID positive during a prior visit on August 14. He denies any shortness of breath, fever, chills, body aches or any other symptoms of COVID-19. MD complaint: anxiety and hallucinations Onset (ago): unknown Duration: constant History of same: Yes Relieving factors: medication Exacerbating factors: none Context: not taking psychiatric medications Associated psychiatric symptoms: racing thoughts, auditory hallucinations and delusions Associated symptoms: headache and insomnia Treatments prior to arrival: none Related Data Previous Rx's Medication Instructions Recorded cyanocobalamin (vitamin B-12) 100 100 mcg PO DAILY #30 tabs 07/29/21 mcg tablet (Vitamin B-12) divalproex 500 mg tablet,extended 1,000 mg PO BEDTIME #30 tabs 07/29/21 release 24 hr lorazepam 1 mg tablet 1 mg PO BID PRN anxiety #7 tabs 07/29/21 melatonin 3 mg tablet 6 mg PO BEDTIME PRN insomnia #30 07/29/21 tabs multivitamin (Daily-Zo) 1 tab PO DAILY #30 tabs 07/29/21 nicotine (polacrilex) 2 mg gum 4 mg buccal Q1H PRN Nicotine 07/29/21 Cravings #60 ea olanzapine 10 mg disintegrating 15 mg translingual BID #30 tabs 07/29/21 tablet Allergies Allergy/AdvReac Type Severity Reaction Status Date / Time No Known Allergies Allergy Verified 12/27/19 19:33 [No Known Allergies*] Review of Systems Review of Systems: Constitutional: No Fever, No Chills ENT/Mouth: No sore throat, No Rhinorrhea, No Swallowing Difficulty Eyes: No Eye Pain, No Swelling, No Redness Cardiovascular: No Chest Pain, No SOB, No Orthopnea, No Edema Respiratory: No Cough, No Sputum, No Wheezing, No dyspnea Gastrointestinal: No Nausea, No Vomiting, No Diarrhea, No abdominal Pain Genitourinary: No Dysuria, No Urinary Frequency, No Hematuria Musculoskeletal: No joint pain, No Myalgias Skin: No Skin Lesions, No rash Neuro: No Weakness, No Numbness, No Dizziness, + Headache Psych: +Anxiety/Panic, + Depression, +AH, No VH, +Delusions, Heme/Lymph: No Bruising, No Lymphadenopathy Endocrine: No Polyuria, No Polydipsia PMFSH Past Medical History Medical History Alcohol abuse Bipolar 1 disorder Social History Social History Household Members: Family Housing: Apartment Do you presently have visiting nurse or other home services: No Alcohol intake: current Alcohol intake frequency: a few times a week Alcohol type: beer Patient Tobacco Use Status: Current everyday Tobacco user Tobacco use type: Cigarette Cigarettes Per Day: 12 e-Cigarette/Vaping Use: Never Used Second Hand Smoke Exposure: Yes Substance Use Type: Marijuana Advance Directives: No Advance Directives Information Provided: No service: No Sexual orientation: Straight/Heterosexual Physical Exam Vital Signs: Vital Signs: Last Vital Signs Temp 97.4 F 08/20/21 20:51 Pulse 104 H 08/20/21 20:51 Resp 16 08/20/21 20:51 BP 159/106 H 08/20/21 20:51 Pulse Ox 97 08/20/21 20:51 O2 Del Method 08/20/21 20:51 BMI result Body Mass Index 28.2 Appearance: Alert. Oriented X3. Restless, lying on the bed, rolling around. Eyes: Pupils equal, round and reactive to light. ENT: Pharynx normal. Neck: Normal inspection. Neck supple. CVS: Normal heart rate and rhythm. Pulses normal. Respiratory: No respiratory distress. Breath sounds normal. Abdomen: Soft and nontender. +BS x4 Skin: Skin warm and dry. Normal skin color. Normal skin turgor. No rashes. Extremities: No lower extremity edema. Neuro/psych: Oriented X 3. No motor deficit. No sensory deficit. CN II-XII intact. Patient is restless, anxious, delusional and paranoid. Actively having hallucinations, incoherent at times. Course Course Course Narrative: 26-year-old male with a history of schizoaffective disorder and recent admission here for acute psychosis presents to the ER for ongoing auditory hallucinations, jazmine, paranoia and delusions. He keeps asking over and over again to pace the halls, he was COVID positive this morning, he does not want to stay locked in her room. Unclear if he is taking his medications at home. will get basic lab workup and have Psychiatry see him in the morning for medication evaluation. Nursing reports prior positive effect with p.o. Haldol, will give a dose now and reassess. Reevaluation(s) Reevaluation #1: U tox is positive for THC. Repeat COVID test is negative. He had unremarkable labs done last week. Will hold off on repeating labs at this time. Will get Psychiatry to see him in the morning for medication evaluation. Will also place a BHN consult. Will place patient in physician observation at this time. Physician observati on started at 11:33pm. Patient placed in physician observation because patient is awaiting BHN evaluation for the possible need of inpatient psych admission. At the time observation was started patient's vital signs were stable. Patient is alert and oriented. Neuro exam is non-focal. CV: RRR and lungs are clear. Will continue to monitor. MDM - Psych Lab Data Labs: Lab Results 08/20/21 08/20/21 Range/Units 21:04 21:04 Urine Opiates Screen Not Detected (Not Detect) Urine Fentanyl Screen Not Detected (Not Detect) Ur Barbiturates Screen Not Detected (Not Detect) Ur Phencyclidine Scrn Not Detected (Not Detect) Ur Amphetamines Screen Not Detected (Not Detect) U Benzodiazepines Scrn Not Detected (Not Detect) Urine Cocaine Screen Not Detected (Not Detect) U Marijuana (THC) Screen POSITIVE H (Not Detect) COVID-19 (LESLI) Negative (Negative) COVID-19 Clin Com See Note Critical Care Time Critical Care Time Critical Care Time: No Discharge Plan Discharge Clinical Impression: Schizoaffective disorder, bipolar type Patient Disposition: Still a Patient Prescriptions: No Action multivitamin [Daily-Zo] Tablet 1 tab PO DAILY Qty: 30 0RF cyanocobalamin (vitamin B-12) [Vitamin B-12] 100 mcg Tablet 100 mcg PO DAILY Qty: 30 0RF nicotine (polacrilex) 2 mg Gum 4 mg buccal Q1H PRN (Reason: Nicotine Cravings) Qty: 60 0RF melatonin 3 mg Tablet 6 mg PO BEDTIME PRN (Reason: insomnia) Qty: 30 1RF divalproex 500 mg Tablet Extended Release 24 Hr 1,000 mg PO BEDTIME Qty: 30 1RF olanzapine 10 mg Tablet,Disintegrating 15 mg translingual BID Qty: 30 1RF lorazepam 1 mg tablet 1 mg PO BID PRN (Reason: anxiety) Qty: 7 0RF Rx Instructions: Take 1 tablet twice a day for 2 days as needed, then 1 tablet daily for 2 days as needed, then one-half tablet daily for 2 days as needed, then discontinue
[2021-08-21 05:58] VITALS: RESP 16
--- NOTE | 2021-08-21 06:17 | PC.NURSE ---
Patient slept through the night, no distress observed/reported, patient is tested negative for covid, med rec completed/pending provider's approval, psych consult ordered to review medication, well engaged with N disposition per N is section 12 Inpatient bed search, VSS, behavior non concerning, VSS, will continue to monitor.
[2021-08-21 07:38] VITALS: BP 127/91; PULSE 72; RESP 18; O2SAT 99
--- NOTE | 2021-08-21 09:09 | P.CNPS_ITS ---
History of Present Illness Date of Service: 08/21/2021 Chief Complaint: CRISIS Reason for Consult: paranoid delusions Requesting physician: Marisa Bonds Discussed with referring provider: Yes Sources of Information: patient interviewed, chart reviewed and crisis/core team assessment reviewed HPI Narrative: Mr. Lockhart is 26 year-old male with hx of schizoaffective disorder bipolar type who self presented to [facility] 2nd day in a row reporting increase AH, paranoid/pentecostalism delusions. Utox positive for cannabinoids. Pt well known to this rfp writer and [facility] through several visits with similar presentation. Pt has declined being connected to outpatient psychiatric providers and although is in agreement to start medication while in the ED, he often stop them once discharge. Also uses cannabis which worsens psychosis. Today, pt reports feeling restless. He reports using cannabis to calm his anxiety. He is able to connect how cannabis increases delusions as he notes that when discharge from psych unit or ED after few days of treatment he is much calmer. He denies suicidal or homicidal ideation. He reports hearing voices- combination of devil and GOD. He reports he is trying to make pack with God and Devil. He states he can see people's future. He reports poor sleep, anxiety. Fair appetite. He reports [facility]. He does have some insight into how medication decrease psychiatric symptoms. Past Psychiatric History: IP- 2019 [facility], M5 05/2021, several ED visit for psychiatric symptoms in past month 07/2021 (3). OP-[facility]. No current providers. Declines referrals Trials- Risperdal, olanzapine, paliperidone, depakote. 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 Trauma History: denies today. Diagnostics Vital Signs (24Hr): Vital Signs - 24 hr 08/20/21 20:51 08/21/21 05:58 08/21/21 07:38 Temperature 97.4 F Pulse Rate 104 H 72 Respiratory Rate 16 16 18 Blood Pressure 159/106 H 127/91 H Pulse Oximetry 97 99 Oxygen Delivery Method Room Air Room Air BMI result Body Mass Index 28.2 Labs Labs: Laboratory Results - last 48 hr 08/20/21 08/20/21 21:04 21:04 Urine Opiates Screen Not Detected Urine Fentanyl Screen Not Detected Ur Barbiturates Screen Not Detected Ur Phencyclidine Scrn Not Detected Ur Amphetamines Screen Not Detected U Benzodiazepines Scrn Not Detected Urine Cocaine Screen Not Detected U Marijuana (THC) Screen POSITIVE H COVID-19 (LESLI) Negative COVID-19 Clin Com See Note Mental Status Exam Mental Status Exam Narrative: Appearance: wearing hospital gown, fair hygiene in NAD Behavior:cooperative psychomotor: no agitation or retardation Speech: clear, normal rate/rhythm/volume, spontaneous Thought process:linear Thought content: hearing voices, paranoid and pentecostalism delusions, open to receive psychiatric tx. Mood: anxious Affect: restless SI:none HI:none VH/AH: +AH of God and Devil. Delusions: + pentecostalism/paranoid delusions Insight/judgment:fair x 2. Memory/cog: alert, oriented x 3. Medications Medications Current Medications Clonazepam (Clonazepam 1 Mg Tablet) 1 mg PO BID FANNIE Cyanocobalamin (Cyanocobalamin (Vitamin B-12) 100 Mcg Tablet) 100 mcg PO DAILY FANNIE Haloperidol (Haloperidol 5 Mg Tablet) 5 mg PO Q6H PRN PRN Reason: agitation Last Admin: 08/20/21 21:39 Dose: 5 mg Lorazepam (Lorazepam 1 Mg Tablet) 1 mg PO Q6H PRN PRN Reason: anxiety Melatonin (Melatonin 3 Mg Tablet) 6 mg PO BEDTIME PRN PRN Reason: insomnia Multivitamins/Vitamin C (Multivitamin Tablet) 1 tab PO DAILY FANNIE Nicotine Polacrilex (Nicotine Polacrilex 2 Mg Gum) 4 mg BUCCAL Q1H PRN PRN Reason: Nicotine Cravings Paliperidone (Paliperidone Er 6 Mg Tab.Er.24) 6 mg PO DAILY FANNIE Allergies Allergies Allergy/AdvReac Type Severity Reaction Status Date / Time No Known Allergies Allergy Verified 12/27/19 19:33 [No Known Allergies*] Assessment & Plan Assessment & Plan (1) Schizoaffective disorder, bipolar type: Status: Acute Code(s): F25.0 - Schizoaffective disorder, bipolar type Plan Mr. Lockhart is a 26 year-old male with hx of schizoaffective disorder well known to [facility] ED and this rfp writer through previous ED visit and M5 admission for similar presentation including AH, pentecostalism delusions. He has declined to be connected to outpatient psychiatric treatment. He does seem to see connection between, being discharge not taking medications and using cannabis and increase psychosis and delusions. We discussed risks, benefits and alternative treatment options. He agrees to try paliperidone and consider ROSS. We discussed starting clonazepam for anxious mood. will hold on depakote. PLAN: 1. Admission to inpatient unit only voluntarily as no imminent risk to harm to self or others due to SI or Hi or gravely disable due to severity of psychiatric symptoms. He does self present to ED when distressed and experiencing exacerbation of psychiatric symptoms. 2. Start paliperidone 6mg po daily, clonazepam 1mg PO BID. I spent ___25___ minutes with the patient and/or on the patient floor today, greater than?50% of which was spent counseling/coordinating care.
[2021-08-21] MEDS: Multivitamin TABLET 1 TAB PO (09:55)
[2021-08-21] MEDS: clonazePAM 1 MG TABLET PO (09:55)
[2021-08-21] MEDS: Cyanocobalamin (Vitamin B-12) 100 MCG TABLET PO (09:55)
[2021-08-21] MEDS: Paliperidone ER 6 MG TAB.ER.24 PO (09:57)
[2021-08-21] MEDS: LORazepam 1 MG TABLET PO (09:59)
[2021-08-21] MEDS: HaloperidoL 5 MG TABLET PO (10:00)
--- NOTE | 2021-08-21 10:06 | PC.NURSE ---
ambulating in common area and socializing w everyone, asked for med to calm me down , ativan and haldol prns given w morning meds, informed of bed search and wants to go home and feels he could do so safely
[2021-08-21] MEDS: Nicotine Polacrilex 2 MG GUM 4 MG BUCCAL (10:27)
[2021-08-21] MEDS: Benztropine Mesylate 1 MG TABLET 2 MG PO (12:50)
--- NOTE | 2021-08-21 14:30 | PC.NURSE ---
sleeping and easily woken, had asked mult times to leave and we were waiting for eps symptoms to subside, pt had been walking stiffly and shuffling gait, now states he feels much better after cogentin , nad, alert speech clear, denies si/hi
== END 2021-08-21 14:32 | disposition home or self-care (01) ==
PROVIDERS: Emergency Provider Internal Medicine
DX: F25.0 Schizoaffective disorder, bipolar type (principal); R51.9 Headache, unspecified; G47.00 Insomnia, unspecified; F12.10 Cannabis abuse, uncomplicated; F17.210 Nicotine dependence, cigarettes, uncomplicated; Z20.822 Contact with and (suspected) exposure to COVID-19; Z71.6 Tobacco abuse counseling; Z79.899 Other long term (current) drug therapy
CPT/HCPCS: 80307; 87635; 99284

== ENCOUNTER 2021-08-25 23:54 | Inpatient (IN) | payer OTHER, SELFPAY ==
[2021-08-26] MEDS: OLANZapine ODT 10 MG TAB.RAPDIS TRANSLINGU ×2 (01:29→16:37)
[2021-08-26] MEDS: hydrOXYzine HCL 25 MG TABLET PO (01:29)
[2021-08-26] MEDS: traZODone HCL 50 MG TABLET PO ×3 (01:36→21:47)
--- NOTE | 2021-08-26 02:40 | PC.ADMIT ---
26 year old male admitted from [facility] in [place]. Patient brought to hospital for disorganized thinking and agitation while at [facility]. Patient was angry and violent at [facility] and was given IM medication. The next day when he was not allowed to leave became angry and started punching the wall. Patient given IM medication and placed in 4 points. Patient arrived on unit calm and cooperative. Patient reports low anxiety and depression. Patient denies any SI/HI. Patient is reporting AH+ but they are not command in nature. Patient Covid _ and UTOX was positive for marijuanna. Patient signed in CV and then requested a 3 day.
[2021-08-26 03:40] VITALS: BMI 27.0
[2021-08-26 06:00] VITALS: BP 130/80; PULSE 85; RESP 16; TEMP 36.6; O2SAT 97
[2021-08-26] MEDS: OLANZapine ODT 10 MG TAB.RAPDIS 15 MG TRANSLINGU (08:49)
[2021-08-26] MEDS: Nicotine 21 MG PATCH.TD24 TRANSDERMA (15:28)
--- NOTE | 2021-08-26 16:34 | P.HPPS_ITS ---
HPI Date of Service: 08/26/21 Chief Complaint: unspecified bipolar d/o, alcohol use d/o; severe HPI Narrative: pt was brought to [facility] by ambulance after having been detained at [employer] [place] by police. he had jumped into a closed pool out of frustration at not being allowed to ride a ride. per collateral from pt's mother, pt had taken his 11 yo daughter to [employer] (pt's mother went along as well). there was an argument and pt disappeared. as she was coming back out of the park she saw him surrounded by police and ambulance. on crisis eval, pt endorses AH, some CAH to hurt others. he expresses delusions. on interivew with this check writer salesperson, pt states that he has made a deal with the devil to split power and control of the world 50- 50. he reports his mood is 8/10 (10 is best mood ever), and that he hears billions of angels and demons who talk to me. he reports he has opened his third eye; he declines to educate MD on how he has managed to do that. he is asking for discharge, and 3-day notice he has already signed is discussed. medications discussed, and pt is open to ROSS. he agrees to DC olanzapine and start paliperidone in anticipation of getting invega injection prior to discharge. no other complaints or requests, no other changes made. Past Psychiatric History: IP- 2019 [facility], M5 05/2021, several ED visit for psychiatric symptoms in past month 07/2021 (3). numerous hosps elsewhere. [facility] No current providers. Declines referrals Trials- Risperdal, olanzapine, paliperidone, depakote. Medical Evaluation Reviewed: Yes [facility] Medical History Alcohol abuse Bipolar 1 disorder Family History: mother - bipolar disorder father - bipolar disorder sister - post- depression, anxiety Social History: [place], raised by his mother. has one sister. did not graduate from . was with a woman for 11 years and he now has an 11 yo daughter. he is from the girl's mother. Lives alone in an apartment. Substance History: alcohol - last drink 3 days prior to admission. denies drinking heavily, states he may drink 1-2 beers daily. cannabis - last use day prior to presentation. tobacco - regular, heavy use. Trauma History: denies today. Diagnostics Vital Signs (24Hr): Vital Signs - 24 hr 08/26/21 06:00 Temperature 98 F Pulse Rate 85 Respiratory Rate 16 Blood Pressure 130/80 Pulse Oximetry 97 Oxygen Delivery Method Room Air BMI result Body Mass Index 27.0 Meds/Allergies Meds Home Medications Medication Instructions Recorded Confirmed Type ibuprofen 800 mg tablet 1 tab PO Q8H 08/26/21 08/26/21 History lorazepam 1 mg tablet 1 mg PO BID PRN Anxiety 08/26/21 08/26/21 History Allergies Allergies Allergy/AdvReac Type Severity Reaction Status Date / Time haloperidol [From Haldol] AdvReac Intermediate EPS Verified 08/21/21 11:47 Mental Status Exam Mental Status Exam Narrative: appropriately dressed and groomed. calm, cooperative. no PMA/PMR. speech nml in rate, amount, loudness, tone, latency. thoughts linear and illogical. affect flexible, normo-intense, non-labile. mood 8/10. endorses AH. denies SI/HI. no VH expressed. Assessment & Plan Assessment & Plan (1) Schizoaffective disorder, bipolar type: Status: Acute Code(s): F25.0 - Schizoaffective disorder, bipolar type (2) Tobacco use disorder: Status: Acute Code(s): F17.200 - Nicotine dependence, unspecified, uncomplicated (3) Cannabis use disorder, mild, abuse: Status: Acute Code(s): F12.10 - Cannabis abuse, uncomplicated Plan DC olanzapine start paliperidone. NRT. ROSS prior to D/C. Patient educated on: medication risk/benefits and therapeutic strategies Reason for continued inpatient stay Substantial Risk for: harm to others, inability to function and rapid decompensation
[2021-08-26] MEDS: LORazepam 1 MG TABLET PO (19:46)
[2021-08-26] MEDS: Paliperidone ER 6 MG TAB.ER.24 PO (21:47)
[2021-08-26] MEDS: Divalproex Sodium ER 500 MG TAB.ER.24H 1000 MG PO (21:47)
[2021-08-26 21:51] VITALS: BP 135/87; PULSE 110; TEMP 36.7; O2SAT 97
[2021-08-27 08:45] VITALS: BP 131/81; PULSE 72; RESP 18; TEMP 36.7; O2SAT 98
[2021-08-27 08:49] LABS: MANUAL DIFF FLAG NO
[2021-08-27 08:54] LABS: Basophils Percent Auto 0.5 % (0-2); Eosinophils Absolute Auto 0.2 X10*3/uL (0.0-0.4); Eosinophils Percent Auto 1.9 % (0-4); Hematocrit 45.2 % (42.0-52.0); Hemoglobin 15.8 g/dl (14.0-18.0); Imm Gran Abs Auto 0.13 X10*3/uL (0.00-0.03); Imm Gran Pct Auto 1.7 % (0.0-0.4); Lymphocytes Absolute Auto 1.7 X10*3/uL (1.2-4.9); Lymphocytes Percent Auto 22.1 % (20-40); Mean Corpuscular Hemoglobin 34.5 pg (27.0-33.0); Mean Corpuscular Volume 98.7 fL (80.0-98.0); Mean Platelet Volume 9.3 fL (9.4-12.4); Monocytes Absolute Auto 0.7 X10*3/uL (0.1-1.2); Monocytes Percent Auto 8.8 % (2-11); Neutrophils Absolute Auto 5.1 x10*3/uL (2.0-8.3); Platelet Count 293 X10*3/uL (160-400); Red Blood Count 4.58 X10*6/uL (4.60-5.80); Red Cell Distribution Width 11.6 % (11.0-16.0); White Blood Count 7.8 X10*3/uL (4.8-10.8)
[2021-08-27] MEDS: Paliperidone ER 6 MG TAB.ER.24 PO ×2 (08:57→21:45)
[2021-08-27] MEDS: Nicotine 21 MG PATCH.TD24 TRANSDERMA (08:58)
[2021-08-27 09:15] LABS: Alanine Aminotransferase 35 U/L (0-40); Alkaline Phosphatase 72 U/L (39-117); Anion Gap 12 (12-20); Aspartate Amino Transferase 24 U/L (5-37); Bilirubin Direct 0.2 mg/dL (0.0-0.5); Bilirubin Total 0.7 mg/dL (0.0-1.0); Blood Urea Nitrogen 11 mg/dL (9-16); Calcium 9.1 mg/dL (8.4-10.2); Carbon Dioxide 27 mmol/L (22-29); Chloride 104 mmol/L (96-108); Cholesterol 240 mg/dL; Creatinine Clr Calc Pharmacy 119.5; Estimated Glomerular Filt Rate > 60; Glucose Fasting 100 mg/dL (60-99); HDL Cholesterol 40 mg/dL; LDL Cholesterol Calculated 155 mg/dl; Potassium 4.6 mmol/L (3.3-5.1); Sodium 138 mmol/L (135-145); Total Protein 6.8 g/dL (6.5-8.0); Triglycerides 229 mg/dL
[2021-08-27 09:17] LABS: Estimated Average Glucose 100 mg/dL; Hemoglobin A1c % 5.1 %
[2021-08-27 09:38] LABS: Free T4 (Free Thyroxine) 0.97 ng/dL (0.71-1.85); Thyroid Stimulating Hormone 0.89 uIU/mL (0.32-4.0)
[2021-08-27 09:47] LABS: Folate 12.1 ng/mL (> or = 4.0); Vitamin B12 446 pg/mL (200-900)
[2021-08-27] MEDS: OLANZapine ODT 10 MG TAB.RAPDIS TRANSLINGU ×2 (10:06→15:39)
[2021-08-27] MEDS: LORazepam 1 MG TABLET PO ×2 (10:06→15:40)
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
--- NOTE | 2021-08-27 17:48 | PC.NURSE ---
Patient placed on close observation.
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
[2021-08-27] MEDS: Nicotine Polacrilex 2 MG GUM 4 MG BUCCAL (20:37)
[2021-08-27 21:30] VITALS: BP 118/76; PULSE 120; TEMP 36.6; O2SAT 96
[2021-08-27] MEDS: Melatonin 3 MG TABLET 6 MG PO (21:45)
[2021-08-27] MEDS: traZODone HCL 50 MG TABLET PO (21:45)
[2021-08-27] MEDS: hydrOXYzine HCL 25 MG TABLET PO (21:45)
[2021-08-27] MEDS: Divalproex Sodium ER 500 MG TAB.ER.24H 1500 MG PO (21:46)
[2021-08-28] MEDS: LORazepam 1 MG TABLET PO ×2 (02:55→08:26)
[2021-08-28] MEDS: Nicotine 21 MG PATCH.TD24 TRANSDERMA (08:26)
[2021-08-28] MEDS: Paliperidone ER 6 MG TAB.ER.24 PO (08:26)
[2021-08-28 08:37] VITALS: BP 141/86; PULSE 102; RESP 20; TEMP 36.3; O2SAT 97
[2021-08-28 09:32] LABS: MANUAL DIFF FLAG NO
[2021-08-28 09:37] LABS: Basophils Absolute Auto 0.1 X10*3/uL (0.0-0.2); Basophils Percent Auto 0.6 % (0-2); Eosinophils Absolute Auto 0.2 X10*3/uL (0.0-0.4); Eosinophils Percent Auto 2.4 % (0-4); Hematocrit 43.5 % (42.0-52.0); Imm Gran Abs Auto 0.11 X10*3/uL (0.00-0.03); Imm Gran Pct Auto 1.4 % (0.0-0.4); Lymphocytes Absolute Auto 1.7 X10*3/uL (1.2-4.9); Lymphocytes Percent Auto 21.6 % (20-40); Mean Corpuscular HGB Conc 34.5 g/dl (31.0-36.0); Mean Corpuscular Hemoglobin 34.2 pg (27.0-33.0); Mean Corpuscular Volume 99.1 fL (80.0-98.0); Mean Platelet Volume 9.4 fL (9.4-12.4); Monocytes Absolute Auto 0.8 X10*3/uL (0.1-1.2); Monocytes Percent Auto 10.3 % (2-11); Neutrophils Absolute Auto 5.1 x10*3/uL (2.0-8.3); Neutrophils Percent Auto 63.7 % (45-73); Platelet Count 294 X10*3/uL (160-400); Red Blood Count 4.39 X10*6/uL (4.60-5.80); Red Cell Distribution Width 11.5 % (11.0-16.0); White Blood Count 8.1 X10*3/uL (4.8-10.8)
[2021-08-28 09:51] LABS: Ammonia 25 umol/L (13-55)
[2021-08-28] MEDS: Paliperidone Palmitate 234 MG/1.5 ML SYRINGE IM (10:05)
[2021-08-28 10:25] LABS: Alanine Aminotransferase 32 U/L (0-40); Albumin Level 3.9 g/dL (3.5-5.0); Alkaline Phosphatase 81 U/L (39-117); Anion Gap 14 (12-20); Aspartate Amino Transferase 18 U/L (5-37); Bilirubin Direct < 0.2 mg/dL (0.0-0.5); Bilirubin Total 0.3 mg/dL (0.0-1.0); Blood Urea Nitrogen 11 mg/dL (9-16); Calcium 8.9 mg/dL (8.4-10.2); Carbon Dioxide 25 mmol/L (22-29); Chloride 103 mmol/L (96-108); Creatinine Clr Calc Pharmacy 122.5; Estimated Glomerular Filt Rate > 60; Glucose Random 98 mg/dL (60-115); Potassium 4.6 mmol/L (3.3-5.1); Sodium 137 mmol/L (135-145); Total Protein 6.6 g/dL (6.5-8.0)
[2021-08-28 10:55] LABS: Valproate 34.2 mcg/mL (50.0-100.0)
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
--- NOTE | 2021-08-28 12:18 | PC.NURSE ---
Mother in to transport patient home. Patient verbalized understandinmg of discharge instructions, no concerns reported, belongings reviewed and returned to patient.
== END 2021-08-28 12:17 | disposition home or self-care (01) | DRG 750 ==
PROVIDERS: Admitting Provider Psychiatry & Neurology Psychiatry; Visit Provider Psychiatry & Neurology Psychiatry
DX: F25.0 Schizoaffective disorder, bipolar type (principal); F12.10 Cannabis abuse, uncomplicated; F17.210 Nicotine dependence, cigarettes, uncomplicated; Z71.6 Tobacco abuse counseling; Z88.8 Allergy status to other drugs, medicaments and biological substances; Z79.899 Other long term (current) drug therapy
CPT/HCPCS: 36415; 80048; 80053; 80061; 80076; 80164; 82140; 82607; 82746; 83036; 84439; 84443; 85025; J2426

== ENCOUNTER 2021-08-30 02:54 | Emergency (ER) | payer MEDICAID, SELFPAY ==
[2021-08-30 02:58] VITALS: BP 131/83; PULSE 102; RESP 17; TEMP 36.4; O2SAT 97; BMI 24.3
--- NOTE | 2021-08-30 03:36 | ED.PSYCH ---
HPI - Psych General Chief Complaint: Psychiatric Symptoms Stated Complaint: crisis Time Seen by Provider: 08/30/21 03:07 Source: patient and old records reviewed Mode of arrival: EMS Limitations: no limitations History of Present Illness MD complaint: hallucinations Onset (ago): week(s) Duration: intermittent History of same: Yes Relieving factors: none Exacerbating factors: drug use Associated psychiatric symptoms: auditory hallucinations Associated symptoms: denies other symptoms Treatments prior to arrival: none Related Data Home Medications Medication Instructions Recorded Confirmed ibuprofen 800 mg tablet 1 tab PO Q8H 08/26/21 08/30/21 divalproex 500 mg tablet,extended 2 tab PO BEDTIME 08/30/21 08/30/21 release 24 hr melatonin 3 mg tablet 2 tab PO BEDTIME PRN insomnia 08/30/21 08/30/21 nicotine (polacrilex) 2 mg gum 2 mg PO Q2H PRN Nicotine Cravings 08/30/21 08/30/21 olanzapine 10 mg disintegrating 15 mg PO BID 08/30/21 08/30/21 tablet Previous Rx's Medication Instructions Recorded cyanocobalamin (vitamin B-12) 100 100 mcg PO DAILY 30 days #30 tabs 08/28/21 mcg tablet (Vitamin B-12) nicotine 21 mg/24 hr daily 21 mg transdermal DAILY 28 days 08/28/21 transdermal patch #28 ea Allergies Allergy/AdvReac Type Severity Reaction Status Date / Time haloperidol [From Haldol] AdvReac Intermediate EPS Verified 08/21/21 11:47 Review of Systems Review of Systems: Constitutional : No Fever, No Chills ENT/Mouth : No Ear Pain, No Nasal Congestion, No sore throat Eyes: No Eye Pain, No Swelling, No Redness Cardiovascular : No Chest Pain, No SOB Respiratory : No Cough, No Sputum, No Dyspnea Gastrointestinal : No Nausea, No Vomiting, No Diarrhea, No Hematochezia, No Melena Genitourinary : No Dysuria, No Urinary Frequency, No Hematuria Musculoskeletal : No Myalgias Skin : No Skin Lesions, No rash Neuro : No Weakness, No Numbness, No Paresthesias, No Dizziness, No Headache Psych : positive Anxiety, positive Depression, no SI/HI, pos AH Heme/Lymph: No Lymphadenopathy Endocrine : No Polyuria, No Polydipsia All other systems reviewed and are negative PMFSH Past Medical History Attestation statement: The following information was validated with the patient. Medical History Alcohol abuse Bipolar 1 disorder Schizoaffective disorder, bipolar type Social History Social History Household Members: Family Housing: House Do you presently have visiting nurse or other home services: No Alcohol intake: current Alcohol intake frequency: a few times a week Alcohol type: beer Patient Tobacco Use Status: Current everyday Tobacco user Tobacco use type: Cigarette Cigarette Packs Per Day: 0.5 Cigarettes Per Day: 10.0 Years Smoked: 15 e-Cigarette/Vaping Use: Former Use Second Hand Smoke Exposure: Yes Substance Use Type: Marijuana Advance Directives: No Advance Directives Information Provided: Yes service: No Sexual orientation: Don't Know Physical Exam Vital Signs: Vital Signs: Last Vital Signs Temp 97.6 F 08/30/21 02:58 Pulse 102 H 08/30/21 02:58 Resp 17 08/30/21 02:58 BP 131/83 08/30/21 02:58 Pulse Ox 97 08/30/21 02:58 BMI result Body Mass Index 24.3 Appearance: Alert. Oriented X3. No acute distress. Eyes: Pupils equal, round and reactive to light. ENT: Pharynx normal. Neck: Normal inspection. Neck supple. CVS: Normal heart rate and rhythm. Pulses normal. Respiratory: No respiratory distress. Breath sounds normal. Abdomen: Soft and nontender. Skin: Skin warm and dry. Normal skin color. Normal skin turgor. Extremities: No lower extremity edema. No calf ttp Neuro: Oriented X 3. No motor deficit. No sensory deficit. CN 2-12 intact Course Course Course Narrative: Physician observation started at 424am Patient placed in physician observation because the patient needed more time for BHN to assess the need for psych admission. At the time observation was started the patient's vitals were stable, patient is alert and oriented Neuro: nonfocal, CV RRR, Lungs clear MDM - Psych MDM Narrative Medical decision making narrative: 26 yo male well known to us with a hx of shizoaffective disorder here with hallucinations no SI - at this time will offer BHN, he is voluntary at this time. Dispo per their recommendations Lab Data Labs: Lab Results 08/30/21 08/30/21 Range/Units 03:15 03:32 Urine Opiates Screen Not Detected (Not Detect) Urine Fentanyl Screen POSITIVE H (Not Detect) Ur Barbiturates Screen Not Detected (Not Detect) Ur Phencyclidine Scrn Not Detected (Not Detect) Ur Amphetamines Screen Not Detected (Not Detect) U Benzodiazepines Scrn Not Detected (Not Detect) Urine Cocaine Screen Not Detected (Not Detect) U Marijuana (THC) Screen POSITIVE H (Not Detect) COVID-19 (LESLI) Negative (Negative) COVID-19 Clin Com See Note Discharge Plan Discharge Clinical Impression: Schizoaffective disorder, bipolar type Patient Disposition: Still a Patient Prescriptions: No Action ibuprofen 800 mg tablet 1 tab PO Q8H nicotine 21 mg/24 hr Patch 24 Hour 21 mg transdermal DAILY 28 Days Qty: 28 0RF cyanocobalamin (vitamin B-12) [Vitamin B-12] 100 mcg Tablet 100 mcg PO DAILY 30 Days Qty: 30 0RF Rx Instructions: medication in on Hold at [facility] olanzapine 10 mg tablet,disintegrating 15 mg PO BID divalproex 500 mg tablet extended release 24 hr 2 tab PO BEDTIME melatonin 3 mg tablet 2 tab PO BEDTIME PRN (Reason: insomnia) nicotine (polacrilex) 2 mg gum 2 mg PO Q2H PRN (Reason: Nicotine Cravings)
[2021-08-30 03:43] LABS: COVID-19 Test Negative (Negative)
[2021-08-30 03:54] LABS: Amphetamine Screen Urine Not Detected (Not Detect); Barbiturates, Urine Not Detected (Not Detect); Benzodiazepines Screen Urine Not Detected (Not Detect); Cannabinoid Screen Urine POSITIVE (Not Detect); Cocaine Screen Urine Not Detected (Not Detect); Fentanyl, urine POSITIVE (Not Detect); Opiate Screen Urine Not Detected (Not Detect); Phencyclidine Screen Urine Not Detected (Not Detect)
--- NOTE | 2021-08-30 06:12 | PC.NURSE ---
Patient in bed appears sleeping, no distress observed/reported, BHN referral completed/confirmed/pending ETA, med rec completed/pending provider's approval, pending blood draw, behavior non concerning at this time, thought content religiously preoccupied, VSS, will continue to monitor.
--- NOTE | 2021-08-30 07:20 | PC.NURSE ---
patient appears to remain asleep at present respirations are even and unlabored patient appears in no distress
[2021-08-30] MEDS: LORazepam 1 MG TABLET 2 MG PO (08:18)
[2021-08-30 08:41] LABS: MANUAL DIFF FLAG NO
[2021-08-30 08:43] LABS: Basophils Percent Auto 0.4 % (0-2); Eosinophils Absolute Auto 0.3 X10*3/uL (0.0-0.4); Eosinophils Percent Auto 2.6 % (0-4); Hematocrit 42.8 % (42.0-52.0); Hemoglobin 14.3 g/dl (14.0-18.0); Imm Gran Abs Auto 0.08 X10*3/uL (0.00-0.03); Imm Gran Pct Auto 0.7 % (0.0-0.4); Lymphocytes Absolute Auto 2.3 X10*3/uL (1.2-4.9); Mean Corpuscular HGB Conc 33.4 g/dl (31.0-36.0); Mean Corpuscular Hemoglobin 33.2 pg (27.0-33.0); Mean Corpuscular Volume 99.3 fL (80.0-98.0); Mean Platelet Volume 9.4 fL (9.4-12.4); Monocytes Absolute Auto 1.1 X10*3/uL (0.1-1.2); Monocytes Percent Auto 9.8 % (2-11); Neutrophils Absolute Auto 7.6 x10*3/uL (2.0-8.3); Neutrophils Percent Auto 66.5 % (45-73); Platelet Count 288 X10*3/uL (160-400); Red Blood Count 4.31 X10*6/uL (4.60-5.80); Red Cell Distribution Width 11.8 % (11.0-16.0); White Blood Count 11.4 X10*3/uL (4.8-10.8)
[2021-08-30 08:55] LABS: Ethanol < 10 mg/dL
[2021-08-30 08:58] LABS: Alanine Aminotransferase 28 U/L (0-40); Albumin Level 3.9 g/dL (3.5-5.0); Alkaline Phosphatase 75 U/L (39-117); Anion Gap 13 (12-20); Aspartate Amino Transferase 25 U/L (5-37); Bilirubin Direct 0.2 mg/dL (0.0-0.5); Bilirubin Total 0.9 mg/dL (0.0-1.0); Blood Urea Nitrogen 13 mg/dL (9-16); Carbon Dioxide 25 mmol/L (22-29); Chloride 106 mmol/L (96-108); Creatinine Clr Calc Pharmacy 126.9; Estimated Glomerular Filt Rate > 60; Glucose Random 100 mg/dL (60-115); Potassium 4.4 mmol/L (3.3-5.1); Sodium 140 mmol/L (135-145); Total Protein 6.7 g/dL (6.5-8.0)
[2021-08-30] MEDS: OLANZapine ODT 10 MG TAB.RAPDIS 15 MG TRANSLINGU (09:05)
[2021-08-30] MEDS: Ibuprofen 800 MG TABLET PO (09:06)
[2021-08-30] MEDS: Cyanocobalamin (Vitamin B-12) 100 MCG TABLET PO (09:06)
[2021-08-30] MEDS: Nicotine Polacrilex 2 MG GUM BUCCAL (09:10)
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
== END 2021-08-30 10:59 | disposition home or self-care (01) ==
PROVIDERS: Emergency Provider Emergency Medicine
DX: F25.0 Schizoaffective disorder, bipolar type (principal); F41.9 Anxiety disorder, unspecified; F32.A Depression, unspecified; F17.200 Nicotine dependence, unspecified, uncomplicated; Z79.899 Other long term (current) drug therapy; Z20.822 Contact with and (suspected) exposure to COVID-19
CPT/HCPCS: 36415; 80048; 80076; 80164; 80307; 82077; 85025; 87635; 99283; 99284

== ENCOUNTER 2021-09-19 10:11 | Emergency (ER) | payer MEDICAID, SELFPAY ==
[2021-09-19 10:19] VITALS: BP 123/70; PULSE 98; RESP 20; TEMP 36.7; O2SAT 97; BMI 27.3
--- NOTE | 2021-09-19 12:23 | ED.PSYCH ---
HPI - Psych General Chief Complaint: Psychiatric Symptoms Stated Complaint: crisis Time Seen by Provider: 09/19/21 11:15 History of Present Illness HPI Narrative: Patient complains of feeling depressed, hearing voices, denies suicidal thoughts, although he says the voices are telling him to hammer his back He denies any recent illness are, he has had no injuries he has made no attempt to harm himself Related Data Home Medications Medication Instructions Recorded Confirmed ibuprofen 800 mg tablet 1 tab PO Q8H 08/26/21 08/30/21 divalproex 500 mg tablet,extended 2 tab PO BEDTIME 08/30/21 08/30/21 release 24 hr melatonin 3 mg tablet 2 tab PO BEDTIME PRN insomnia 08/30/21 08/30/21 nicotine (polacrilex) 2 mg gum 2 mg PO Q2H PRN Nicotine Cravings 08/30/21 08/30/21 olanzapine 10 mg disintegrating 15 mg PO BID 08/30/21 08/30/21 tablet Previous Rx's Medication Instructions Recorded cyanocobalamin (vitamin B-12) 100 100 mcg PO DAILY 30 days #30 tabs 08/28/21 mcg tablet (Vitamin B-12) nicotine 21 mg/24 hr daily 21 mg transdermal DAILY 28 days 08/28/21 transdermal patch #28 ea Allergies Allergy/AdvReac Type Severity Reaction Status Date / Time haloperidol [From Haldol] AdvReac Intermediate EPS Verified 08/21/21 11:47 Review of Systems Review of Systems: Positive for depression and hearing voices Negatives are no fever no chills no dizziness no weakness no headache no neck pain no stiff neck no sore throat no vision changes no cough no shortness of breath no chest pain no abdominal pain no nausea vomiting or diarrhea no dysuria Yes all other systems are reviewed and are negative [facility] Past Medical History [facility] Narrative: Prior psych history with multiple prior visits for same Source: nursing notes reviewed Medical History Alcohol abuse Bipolar 1 disorder Schizoaffective disorder, bipolar type Social History Social History Household Members: Family Housing: House Do you presently have visiting nurse or other home services: No Alcohol intake: current Alcohol intake frequency: a few times a week Alcohol type: beer Patient Tobacco Use Status: Current everyday Tobacco user Tobacco use type: Cigarette Cigarette Packs Per Day: 0.5 Cigarettes Per Day: 10.0 Years Smoked: 15 e-Cigarette/Vaping Use: Former Use Second Hand Smoke Exposure: Yes Use of substances other than those prescribed or required for medical reasons: No Substance Use Type: Marijuana Advance Directives: No Advance Directives Information Provided: No service: No Sexual orientation: Don't Know Physical Exam Vital Signs: Vital Signs: Last Vital Signs Temp 98.1 F 09/19/21 10:19 Pulse 97 09/19/21 12:40 Resp 20 09/19/21 12:40 BP 154/88 H 09/19/21 12:40 Pulse Ox 98 09/19/21 12:40 O2 Del Method 09/19/21 12:40 BMI result Body Mass Index 27.3 General appearance no acute distress Head is normocephalic atraumatic The eyes pupils equal round reactive to light extraocular motions are intact Pharynx clear Neck is supple Respiratory no distress Chest clear to auscultation bilateral Abdomen soft nontender Extremities full range of motion x4 Neuro no gross focal deficits Course Course Course Narrative: Patient remains stable, discussion with PHN is patient is pending psychiatric nurse evaluation Patient refused blood draw for labs toxicology did not detect any illicit substance PHN was consulted and they will make a decision in the morning about whether he needs to be placed or discharged and he will be held overnight [facility] - Psych Lab Data Labs: Lab Results 09/19/21 09/19/21 Range/Units 12:47 13:11 Urine Opiates Screen Not Detected (Not Detect) Urine Fentanyl Screen Not Detected (Not Detect) Ur Barbiturates Screen Not Detected (Not Detect) Ur Phencyclidine Scrn Not Detected (Not Detect) Ur Amphetamines Screen Not Detected (Not Detect) U Benzodiazepines Scrn Not Detected (Not Detect) Urine Cocaine Screen Not Detected (Not Detect) U Marijuana (THC) Screen Not Detected (Not Detect) COVID-19 (LESLI) Negative (Negative) COVID-19 Clin Com See Note Discharge Plan Discharge Clinical Impression: Depression Prescriptions: No Action ibuprofen 800 mg tablet 1 tab PO Q8H nicotine 21 mg/24 hr Patch 24 Hour 21 mg transdermal DAILY 28 Days Qty: 28 0RF cyanocobalamin (vitamin B-12) [Vitamin B-12] 100 mcg Tablet 100 mcg PO DAILY 30 Days Qty: 30 0RF Rx Instructions: medication in on Hold at [facility] olanzapine 10 mg tablet,disintegrating 15 mg PO BID divalproex 500 mg tablet extended release 24 hr 2 tab PO BEDTIME melatonin 3 mg tablet 2 tab PO BEDTIME PRN (Reason: insomnia) nicotine (polacrilex) 2 mg gum 2 mg PO Q2H PRN (Reason: Nicotine Cravings)
[2021-09-19 12:40] VITALS: BP 154/88; PULSE 97; RESP 20; O2SAT 98
--- NOTE | 2021-09-19 12:48 | PC.NURSE ---
pt is refusing the ativan at this time, was able to get the covid swab but not the blood work tearful
[2021-09-19 13:08] LABS: COVID-19 Test Negative (Negative); IDNOW Serial# 16C4AD1C
[2021-09-19] MEDS: LORazepam 1 MG TABLET 2 MG PO (13:18)
[2021-09-19 13:41] LABS: Amphetamine Screen Urine Not Detected (Not Detect); Barbiturates, Urine Not Detected (Not Detect); Benzodiazepines Screen Urine Not Detected (Not Detect); Cannabinoid Screen Urine Not Detected (Not Detect); Cocaine Screen Urine Not Detected (Not Detect); Fentanyl, urine Not Detected (Not Detect); Opiate Screen Urine Not Detected (Not Detect); Phencyclidine Screen Urine Not Detected (Not Detect)
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
--- NOTE | 2021-09-19 15:07 | MHC.CARE ---
Plan for care team to work with Maddi Gramajo NP regarding plan of care. Pt denies current SI/HI. Pt reports he missed recent medications and Pt can notably rapidly de-compensate. CARE Team to follow up Pt.
--- NOTE | 2021-09-19 15:10 | PC.NURSE ---
pt is currently asleep, respirations even and unlabored, sitter in place
[2021-09-19 20:42] VITALS: BP 139/86; PULSE 104; RESP 20; TEMP 36.1; O2SAT 96
[2021-09-19 21:14] LABS: MANUAL DIFF FLAG NO
[2021-09-19 21:17] LABS: Basophils Percent Auto 0.4 % (0-2); Eosinophils Absolute Auto 0.1 X10*3/uL (0.0-0.4); Eosinophils Percent Auto 1.4 % (0-4); Hematocrit 43.9 % (42.0-52.0); Hemoglobin 14.9 g/dl (14.0-18.0); Imm Gran Abs Auto 0.06 X10*3/uL (0.00-0.03); Imm Gran Pct Auto 0.6 % (0.0-0.4); Lymphocytes Absolute Auto 1.9 X10*3/uL (1.2-4.9); Lymphocytes Percent Auto 19.8 % (20-40); Mean Corpuscular HGB Conc 33.9 g/dl (31.0-36.0); Mean Corpuscular Volume 97.1 fL (80.0-98.0); Mean Platelet Volume 9.5 fL (9.4-12.4); Monocytes Percent Auto 10.7 % (2-11); Neutrophils Absolute Auto 6.4 x10*3/uL (2.0-8.3); Neutrophils Percent Auto 67.1 % (45-73); Platelet Count 339 X10*3/uL (160-400); Red Blood Count 4.52 X10*6/uL (4.60-5.80); Red Cell Distribution Width 11.6 % (11.0-16.0); White Blood Count 9.5 X10*3/uL (4.8-10.8)
[2021-09-19 21:35] LABS: Alanine Aminotransferase 22 U/L (0-40); Alkaline Phosphatase 73 U/L (39-117); Anion Gap 13 (12-20); Aspartate Amino Transferase 22 U/L (5-37); Bilirubin Total 0.4 mg/dL (0.0-1.0); Blood Urea Nitrogen 10 mg/dL (9-16); Carbon Dioxide 21 mmol/L (22-29); Chloride 106 mmol/L (96-108); Creatinine Clr Calc Pharmacy 132.6; Estimated Glomerular Filt Rate > 60; Ethanol < 10 mg/dL; Glucose Random 143 mg/dL (60-115); Sodium 136 mmol/L (135-145); Total Protein 7.6 g/dL (6.5-8.0)
[2021-09-19 21:42] LABS: Valproate 13.5 mcg/mL (50.0-100.0)
[2021-09-20 00:32] VITALS: BP 146/104; PULSE 95; RESP 17; TEMP 36.5; O2SAT 98
[2021-09-20] MEDS: OLANZapine 10 MG TABLET PO (00:37)
--- NOTE | 2021-09-20 07:13 | PC.NURSE ---
Patient slept through the night, no distress observed/reported, behavior non concerning, Olanzapine 10 mg PO administered at 0037 withy positive effect, patient assessed by care team, disposition is QUENTIN follow up, med rec completed/pending provider's approval, will continue to monitor.
--- NOTE | 2021-09-20 07:28 | PC.NURSE ---
patient appears to remain asleep at present respirations are even and unlabored patient appears in no distress
[2021-09-20 08:50] VITALS: BP 151/93; PULSE 120; RESP 18; TEMP 36.8; O2SAT 99
[2021-09-20] MEDS: LORazepam 1 MG TABLET PO (09:37)
[2021-09-20] MEDS: Paliperidone Palmitate 234 MG/1.5 ML SYRINGE IM (13:07)
--- NOTE | 2021-09-20 13:17 | MHC.CARE ---
CARE team consulted with Zaida Caldwell PRODUCT ACCOUNTANT , she reports she ordered Invega injection and Adi can return home after injection is given. CARE team met with Adi and he called his mother, she will pick him up at [facility] and transport him home.
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
--- NOTE | 2021-09-20 14:01 | PC.NURSE ---
Mom called back for transportation
== END 2021-09-20 14:18 | disposition other institution (70) ==
PROVIDERS: Physician Assistant Medical; Emergency Provider Emergency Medicine Emergency Medical Services
DX: F25.0 Schizoaffective disorder, bipolar type (principal); F12.10 Cannabis abuse, uncomplicated; F23 Brief psychotic disorder; F17.210 Nicotine dependence, cigarettes, uncomplicated; F10.10 Alcohol abuse, uncomplicated; Y90.0 Blood alcohol level of less than 20 mg/100 ml; Z79.899 Other long term (current) drug therapy; Z20.822 Contact with and (suspected) exposure to COVID-19
CPT/HCPCS: 36415; 80053; 80164; 80307; 82077; 85025; 87635; 99284; 99285; J2426

== ENCOUNTER 2021-09-24 09:46 | Emergency (ER) | payer MEDICAID, SELFPAY ==
[2021-09-24 10:21] VITALS: BP 138/83; BP 151/90; PULSE 107; PULSE 124; RESP 18; TEMP 36.5; O2SAT 95; O2SAT 96; BMI 25.8
--- NOTE | 2021-09-24 10:47 | ED.PSYCH ---
HPI - Psych General Chief Complaint: Psychiatric Symptoms Stated Complaint: Psych Time Seen by Provider: 09/24/21 10:43 Source: patient and EMS Mode of arrival: EMS Limitations: no limitations History of Present Illness HPI Narrative: Patient comes to the emergency room complaining of auditory hallucinations. Patient states that he believes that he is . Patient is suspicious and paranoid that people are trying to get inside of his head and tried to manipulate him. Patient suspicious that his family is stealing money from him. Patient states that he has a messenger from God, talking about angels. Denies suicidal or homicidal ideation, no physical complaints Related Data Home Medications Medication Instructions Recorded Confirmed ibuprofen 800 mg tablet 1 tab PO Q8H 08/26/21 09/19/21 melatonin 3 mg tablet 2 tab PO BEDTIME PRN insomnia 08/30/21 09/19/21 nicotine (polacrilex) 2 mg gum 2 mg PO Q2H PRN Nicotine Cravings 08/30/21 09/19/21 divalproex 500 mg tablet,extended 3 tab PO BEDTIME 09/19/21 09/19/21 release 24 hr paliperidone palmitate 234 mg/1.5 1.25 ml IM Q4W 09/19/21 09/19/21 mL intramuscular syringe (Invega Sustenna) Previous Rx's Medication Instructions Recorded cyanocobalamin (vitamin B-12) 100 100 mcg PO DAILY 30 days #30 tabs 08/28/21 mcg tablet (Vitamin B-12) nicotine 21 mg/24 hr daily 21 mg transdermal DAILY 28 days 08/28/21 transdermal patch #28 ea Allergies Allergy/AdvReac Type Severity Reaction Status Date / Time haloperidol [From Haldol] AdvReac Intermediate EPS Verified 08/21/21 11:47 Review of Systems Review of Systems: Constitutional : No Weight loss, No Fever, No Chills, No Night Sweats, No Fatigue, No Malaise ENT/Mouth : No Hearing loss, No Ear Pain, No Nasal Congestion, No Sinus Pain, No Hoarseness, No sore throat, No Rhinorrhea, No Swallowing Difficulty Eyes: No Eye Pain, No Swelling, No Redness, No Foreign Body, No Discharge, No Vision Changes Cardiovascular : No Chest Pain, No SOB, No Dyspnea on Exertion, No Orthopnea, No Edema, No Palpitations Respiratory : No Cough, No Sputum, No Wheezing, No Smoke Exposure, No Dyspnea Gastrointestinal : No Nausea, No Vomiting, No Diarrhea, No Constipation, No abdominal Pain, No Hematochezia, No Melena Genitourinary : no irregular bleeding, No Dysuria, No Urinary Frequency, No Hematuria, No Urinary Incontinence, No Urgency, No Flank Pain, No Urinary Flow Changes, No Hesitancy Musculoskeletal : No joint pain, No Myalgias, No Joint Swelling Skin : No Skin Lesions, No rash Neuro : No Weakness, No Numbness, No Paresthesias, No Loss of Consciousness, No Dizziness, No Headache Psych : Denies suicidal or homicidal ideation, complaining of anxiety, paranoid that his family is trying to steal money, convinced that he has a messenger from God Heme/Lymph: No Bruising, No Bleeding,No Lymphadenopathy Endocrine : No Polyuria, No Polydipsia, No Temperature Intolerance [facility] Past Medical History Medical History Alcohol abuse Bipolar 1 disorder Schizoaffective disorder, bipolar type Social History Social History Household Members: Family Housing: House Do you presently have visiting nurse or other home services: No Alcohol intake: current Alcohol intake frequency: a few times a week Alcohol type: beer Patient Tobacco Use Status: Current everyday Tobacco user Tobacco use type: Cigarette Cigarette Packs Per Day: 0.5 Cigarettes Per Day: 10.0 Years Smoked: 15 e-Cigarette/Vaping Use: Former Use Second Hand Smoke Exposure: Yes Substance Use Type: Marijuana Advance Directives: No Advance Directives Information Provided: No service: No Sexual orientation: Don't Know Physical Exam Vital Signs: Vital Signs: Last Vital Signs Temp 97.7 F 09/24/21 10:21 Pulse 124 H 09/24/21 10:21 Resp 18 09/24/21 10:21 BP 151/90 H 09/24/21 10:21 Pulse Ox 96 09/24/21 10:21 O2 Del Method 09/24/21 10:21 BMI result Body Mass Index 25.8 Const: Other: Appearance: Alert. Oriented X3. No acute distress. Eyes: Pupils equal, round and reactive to light. ENT: Pharynx normal. Neck: Normal inspection. Neck supple. No lymph nodes noted. No crepitus CVS: Normal heart rate and rhythm. Pulses normal. Normal S1 and S2 Respiratory: No respiratory distress. Breath sounds normal. No Wheezing. No rales Abdomen: Soft and nontender. No rigidity. No distention. Skin: Skin warm and dry. Normal skin color. Normal skin turgor. Extremities: No lower extremity edema. No Lacerations. No Rash Neuro: Oriented X 3. No motor deficit. No sensory deficit. Moving all extremities. No slurred speech. CN 2 through 12 grossly intact Psych: calm, cooperative, seems to have tangential speech, patient pacing around the pod, telling other patients that he has a messenger from God, anxious that people are trying to get into his head and manipulate him Course Course Course Narrative: [facility]al health network consult pending. Physician observation started at 10:50 Behavioral health network evaluated the patient. They discussed the patient by Dr. Mcdonald from Psychiatry. They consider the patient is at baseline, patient is not suicidal or homicidal, not a threat to himself or others. Patient does not have a [place] order. At this time, per Psychiatry, he can be discharged home. Patient wants to go to his own apartment, we recommended to return to his mother's house where he can be supervised. Patient has history of noncompliance with medications and appointments. The care team and Case Management has set up appointments for him, for home visits, patient does not open the door for them. Patient is very good at return to the hospital whenever he does not feel psychologically stable. At this time, patient feels well enough to go home. [facility] - Psych Lab Data Labs: Lab Results 09/24/21 09/24/21 Range/Units 11:08 11:08 Urine Opiates Screen Not Detected (Not Detect) Urine Fentanyl Screen Not Detected (Not Detect) Ur Barbiturates Screen Not Detected (Not Detect) Ur Phencyclidine Scrn Not Detected (Not Detect) Ur Amphetamines Screen Not Detected (Not Detect) U Benzodiazepines Scrn Not Detected (Not Detect) Urine Cocaine Screen Not Detected (Not Detect) U Marijuana (THC) Screen POSITIVE H (Not Detect) COVID-19 (LESLI) Negative (Negative) COVID-19 Clin Com See Note Discharge Plan Discharge Clinical Impression: Schizoaffective disorder, bipolar type Patient Disposition: Home, Self-Care Instructions: Bipolar Disorder (ED), Psychotic Disorder (ED) Additional Instructions: Please follow-up with your primary care physician tomorrow. If you have any worsening or new symptoms, please return to the emergency room or call 911 Prescriptions: No Action ibuprofen 800 mg tablet 1 tab PO Q8H nicotine 21 mg/24 hr Patch 24 Hour 21 mg transdermal DAILY 28 Days Qty: 28 0RF cyanocobalamin (vitamin B-12) [Vitamin B-12] 100 mcg Tablet 100 mcg PO DAILY 30 Days Qty: 30 0RF Rx Instructions: medication in on Hold at [facility] melatonin 3 mg tablet 2 tab PO BEDTIME PRN (Reason: insomnia) nicotine (polacrilex) 2 mg gum 2 mg PO Q2H PRN (Reason: Nicotine Cravings) divalproex 500 mg tablet extended release 24 hr 3 tab PO BEDTIME Invega Sustenna 234 mg/1.5 mL syringe 1.25 ml IM Q4W
[2021-09-24] MEDS: LORazepam 1 MG TABLET 2 MG PO (10:54)
[2021-09-24 11:39] LABS: Amphetamine Screen Urine Not Detected (Not Detect); Barbiturates, Urine Not Detected (Not Detect); Benzodiazepines Screen Urine Not Detected (Not Detect); Cannabinoid Screen Urine POSITIVE (Not Detect); Cocaine Screen Urine Not Detected (Not Detect); Fentanyl, urine Not Detected (Not Detect); Opiate Screen Urine Not Detected (Not Detect); Phencyclidine Screen Urine Not Detected (Not Detect)
[2021-09-24 11:52] LABS: COVID-19 Test Negative (Negative); IDNOW Serial# 16C4AD1C
== END 2021-09-24 15:24 | disposition home or self-care (01) ==
PROVIDERS: Emergency Provider Emergency Medicine
DX: F25.0 Schizoaffective disorder, bipolar type (principal); Z20.822 Contact with and (suspected) exposure to COVID-19; F10.10 Alcohol abuse, uncomplicated; F17.210 Nicotine dependence, cigarettes, uncomplicated; F12.90 Cannabis use, unspecified, uncomplicated; Z79.899 Other long term (current) drug therapy
CPT/HCPCS: 80307; 87635; 99283; 99284

== ENCOUNTER 2021-09-28 10:36 | Emergency (ER) | payer MEDICAID, SELFPAY ==
--- NOTE | 2021-09-28 10:46 | ED_ITS ---
HPI - Psych General Chief Complaint: Psychiatric Symptoms Stated Complaint: PSYCH EPISODE PER EMS Time Seen by Provider: 09/28/21 10:45 Source: patient, EMS and old records reviewed Mode of arrival: ambulatory Limitations: no limitations History of Present Illness HPI Narrative: 26-year-old male with a history of schizoaffective disorder, bipolar type with numerous admissions here for mental instability and hallucinations who presents to the ER after having a conflict with his mother and feeling like he is going to . He has history of multiple recent admissions here and other hospitals as well. He has had trials of Risperdal, olanzapine, paliparaone, Depakote. He was last seen here on 09/24 with auditory hallucinations and believing that he was . he was discharged to the care of his mother after being seen by Psychiatry. Patient reports he cannot stay with his mom could she is studying him too much. He cannot stand the dating some the noises his mother cellphone makes. The phone is watching him. Him and his mother were not getting along so he left to go to his own apartment. He admits to not taking his medications after he left and says he does not take them if he is not at her house. He has increased stress and conflict at home. He does not feel safe. He denies suicidal ideation at this time MD complaint: anxiety and hallucinations Onset (ago): unknown Duration: constant and getting worse History of same: Yes Relieving factors: medication Exacerbating factors: none Context: not taking psychiatric medications Associated psychiatric symptoms: auditory hallucinations and delusions Associated symptoms: confusion and insomnia Treatments prior to arrival: none Related Data Home Medications Medication Instructions Recorded Confirmed ibuprofen 800 mg tablet 1 tab PO Q8H 08/26/21 09/19/21 melatonin 3 mg tablet 2 tab PO BEDTIME PRN insomnia 08/30/21 09/19/21 nicotine (polacrilex) 2 mg gum 2 mg PO Q2H PRN Nicotine Cravings 08/30/21 09/19/21 divalproex 500 mg tablet,extended 3 tab PO BEDTIME 09/19/21 09/28/21 release 24 hr paliperidone palmitate 234 mg/1.5 1.25 ml IM Q4W 09/19/21 09/28/21 mL intramuscular syringe (Invega Sustenna) Previous Rx's Medication Instructions Recorded cyanocobalamin (vitamin B-12) 100 100 mcg PO DAILY 30 days #30 tabs 08/28/21 mcg tablet (Vitamin B-12) nicotine 21 mg/24 hr daily 21 mg transdermal DAILY 28 days 08/28/21 transdermal patch #28 ea Allergies Allergy/AdvReac Type Severity Reaction Status Date / Time haloperidol [From Haldol] AdvReac Intermediate EPS Verified 08/21/21 11:47 Review of Systems Review of Systems: Constitutional: No Fever, No Chills ENT/Mouth: No sore throat, No Rhinorrhea Cardiovascular: No Chest Pain, No SOB Respiratory: No Cough, No Sputum, No Wheezing, No dyspnea Gastrointestinal: No Nausea, No Vomiting, No Diarrhea, No abdominal Pain Genitourinary: No Dysuria, No Urinary Frequency, No Hematuria Musculoskeletal: No joint pain, No Myalgias Skin: No Skin Lesions, No rash Neuro: No Weakness, No Numbness, No Dizziness, No Headache Psych: + Anxiety/Panic, + Depression, No SI, +AH, No VH, No HI Heme/Lymph: No Bruising, No Lymphadenopathy Endocrine: No Polyuria, No Polydipsia PMFSH Past Medical History Medical History Alcohol abuse Bipolar 1 disorder Schizoaffective disorder, bipolar type Social History Social History Household Members: Family Housing: House Do you presently have visiting nurse or other home services: No Alcohol intake: current Alcohol intake frequency: a few times a week Alcohol type: beer Patient Tobacco Use Status: Current everyday Tobacco user Tobacco use type: Cigarette Cigarette Packs Per Day: 0.5 Cigarettes Per Day: 10.0 Years Smoked: 15 e-Cigarette/Vaping Use: Former Use Second Hand Smoke Exposure: Yes Substance Use Type: Marijuana Advance Directives: No Advance Directives Information Provided: Yes service: No Sexual orientation: Don't Know Physical Exam Vital Signs: Vital Signs: Last Vital Signs Temp 98 F 09/28/21 10:49 Pulse 100 09/28/21 10:49 Resp 18 09/28/21 10:49 BP 138/86 09/28/21 10:49 Pulse Ox 98 09/28/21 10:49 O2 Del Method 09/28/21 10:49 BMI result Body Mass Index 22.6 Appearance: Alert. Oriented X3. Anixous and pacing Eyes: Pupils equal, round and reactive to light. ENT: Pharynx normal. Neck: Normal inspection. Neck supple. CVS: Normal heart rate and rhythm. Pulses normal. Respiratory: No respiratory distress. Breath sounds normal. Abdomen: Soft and nontender. +BS x4 Skin: Skin warm and dry. Normal skin color. Normal skin turgor. No rashes. Extremities: No lower extremity edema. Neuro/psych: Oriented X 3. No motor deficit. No sensory deficit. Ambulating with a steady gait. CN II-XII intact. Anxious, preoccupied with internal stimuli, hallucinating Course Course Course Narrative: 26-year-old male with history of schizoaffective disorder, bipolar type with chronic auditory hallucinations who is well known to this emergency department presents to the ER for mental health evaluation. He reports not being right and that it's too much. With a difficult time elaborating on this and reports he should have stayed with his mother. He says when he is not with his mother he does not take his medications. Home med rec is pending. He is reques ting something for anxiety now, will give a dose of Ativan. He is pacing around the pod starting to escalate and get tearful. Will check his U tox, COVID swab and have the crisis team evaluate him. Reevaluation(s) Reevaluation #1: Physician observation started at 11:41am. Patient placed in physician observation because patient is awaiting [facility] evaluation for the possible need of inpatient psych admission. At the time observation was started patient's vital signs were stable. Patient is alert and oriented. Neuro exam is non-focal. CV: RRR and lungs are clear. Will continue to monitor. [facility] - Psych Lab Data Labs: Lab Results 09/28/21 09/28/21 Range/Units 11:05 11:05 Urine Opiates Screen Not Detected (Not Detect) Urine Fentanyl Screen Not Detected (Not Detect) Ur Barbiturates Screen Not Detected (Not Detect) Ur Phencyclidine Scrn Not Detected (Not Detect) Ur Amphetamines Screen Not Detected (Not Detect) U Benzodiazepines Scrn Not Detected (Not Detect) Urine Cocaine Screen Not Detected (Not Detect) U Marijuana (THC) Screen POSITIVE H (Not Detect) COVID-19 (LESLI) Negative (Negative) COVID-19 Clin Com See Note Critical Care Time Critical Care Time Critical Care Time: No Discharge Plan Discharge Clinical Impression: Schizoaffective disorder, bipolar type Patient Disposition: Still a Patient Prescriptions: No Action ibuprofen 800 mg tablet 1 tab PO Q8H nicotine 21 mg/24 hr Patch 24 Hour 21 mg transdermal DAILY 28 Days Qty: 28 0RF cyanocobalamin (vitamin B-12) [Vitamin B-12] 100 mcg Tablet 100 mcg PO DAILY 30 Days Qty: 30 0RF Rx Instructions: medication in on Hold at [facility] melatonin 3 mg tablet 2 tab PO BEDTIME PRN (Reason: insomnia) nicotine (polacrilex) 2 mg gum 2 mg PO Q2H PRN (Reason: Nicotine Cravings) divalproex 500 mg tablet extended release 24 hr 3 tab PO BEDTIME Invega Sustenna 234 mg/1.5 mL syringe 1.25 ml IM Q4W
[2021-09-28 10:49] VITALS: BP 138/86; PULSE 100; PULSE 105; RESP 18; TEMP 36.6; O2SAT 98; BMI 22.6
[2021-09-28] MEDS: LORazepam 1 MG TABLET 2 MG PO (11:08)
[2021-09-28 11:33] LABS: COVID-19 Test Negative (Negative); IDNOW Serial# 08D9AD1C
[2021-09-28 11:36] LABS: Amphetamine Screen Urine Not Detected (Not Detect); Barbiturates, Urine Not Detected (Not Detect); Benzodiazepines Screen Urine Not Detected (Not Detect); Cannabinoid Screen Urine POSITIVE (Not Detect); Cocaine Screen Urine Not Detected (Not Detect); Fentanyl, urine Not Detected (Not Detect); Opiate Screen Urine Not Detected (Not Detect); Phencyclidine Screen Urine Not Detected (Not Detect)
--- NOTE | 2021-09-28 19:46 | PC.NURSE ---
pt sleeping in bed, in no distress
--- NOTE | 2021-09-28 19:53 | MHC.CARE ---
CARE team was informed by the pod that pt is requesting to discharge home from the ED and does not wish to wait pending admission. CARE team communicated with [facility] taping machine operator re: pt's request and discussed plan for pt to discharge home and crisis will do a follow up with him in the morning. ED provider is agreeable with plan for discharge and crisis follow up. Pt reported that he feels safe returning home and plans to call his mother in the morning. He is aware that [facility] will be contacting him to follow up.
[2021-09-28 20:00] VITALS: BP 139/90; PULSE 95; TEMP 35.6; O2SAT 98
--- NOTE | 2021-09-28 20:07 | MHC.CARE ---
Care Team called patients mother and requested to transport him home.
--- NOTE | 2021-09-28 20:24 | PC.NURSE ---
pt resting in HW bed, no distress. ready for dc. pt mother contacted for transport home.
== END 2021-09-28 20:28 | disposition home or self-care (01) ==
PROVIDERS: Physician Assistant; Emergency Provider Student in an Organized Health Care Education/Training Program
DX: F25.0 Schizoaffective disorder, bipolar type (principal); F12.10 Cannabis abuse, uncomplicated; F17.210 Nicotine dependence, cigarettes, uncomplicated; Z20.822 Contact with and (suspected) exposure to COVID-19; Z79.899 Other long term (current) drug therapy; Z71.6 Tobacco abuse counseling
CPT/HCPCS: 80307; 87635; 99284

== ENCOUNTER 2021-10-01 11:54 | Emergency (ER) | payer MEDICAID, SELFPAY ==
[2021-10-01 12:18] VITALS: BP 119/71; PULSE 80; PULSE 99; RESP 16; TEMP 36.6; O2SAT 98; BMI 25.0
--- NOTE | 2021-10-01 12:23 | ED_ITS ---
HPI - Psych General Chief Complaint: Psychiatric Symptoms Stated Complaint: PSYCH EMERGENCY Time Seen by Provider: 10/01/21 12:17 Source: EMS Mode of arrival: EMS Limitations: no limitations History of Present Illness HPI Narrative: Patient comes to the emergency room by EMS. Seems that earlier today, patient was found in a building crying, talking about God and the devil. Patient is known to have voodoo delusions. Patient states he has stopped taking his medications since the last time, which was 3 days ago. Patient is not providing any further information. Patient unsure why he is here. Related Data Home Medications Medication Instructions Recorded Confirmed ibuprofen 800 mg tablet 1 tab PO Q8H 08/26/21 09/19/21 melatonin 3 mg tablet 2 tab PO BEDTIME PRN insomnia 08/30/21 09/19/21 nicotine (polacrilex) 2 mg gum 2 mg PO Q2H PRN Nicotine Cravings 08/30/21 09/19/21 divalproex 500 mg tablet,extended 3 tab PO BEDTIME 09/19/21 09/28/21 release 24 hr paliperidone palmitate 234 mg/1.5 1.25 ml IM Q4W 09/19/21 09/28/21 mL intramuscular syringe (Invega Sustenna) Previous Rx's Medication Instructions Recorded cyanocobalamin (vitamin B-12) 100 100 mcg PO DAILY 30 days #30 tabs 08/28/21 mcg tablet (Vitamin B-12) nicotine 21 mg/24 hr daily 21 mg transdermal DAILY 28 days 08/28/21 transdermal patch #28 ea Allergies Allergy/AdvReac Type Severity Reaction Status Date / Time haloperidol [From Haldol] AdvReac Intermediate EPS Verified 08/21/21 11:47 Review of Systems Review of Systems: Constitutional : No Weight loss, No Fever, No Chills, No Night Sweats, No Fatigue, No Malaise ENT/Mouth : No Hearing loss, No Ear Pain, No Nasal Congestion, No Sinus Pain, No Hoarseness, No sore throat, No Rhinorrhea, No Swallowing Difficulty Eyes: No Eye Pain, No Swelling, No Redness, No Foreign Body, No Discharge, No Vision Changes Cardiovascular : No Chest Pain, No SOB, No Dyspnea on Exertion, No Orthopnea, No Edema, No Palpitations Respiratory : No Cough, No Sputum, No Wheezing, No Smoke Exposure, No Dyspnea Gastrointestinal : No Nausea, No Vomiting, No Diarrhea, No Constipation, No abdominal Pain, No Hematochezia, No Melena Genitourinary : no irregular bleeding, No Dysuria, No Urinary Frequency, No Hematuria, No Urinary Incontinence, No Urgency, No Flank Pain, No Urinary Flow Changes, No Hesitancy Musculoskeletal : No joint pain, No Myalgias, No Joint Swelling Skin : No Skin Lesions, No rash Neuro : No Weakness, No Numbness, No Paresthesias, No Loss of Consciousness, No Dizziness, No Headache Psych : Denies SI or HI Heme/Lymph: No Bruising, No Bleeding,No Lymphadenopathy Endocrine : No Polyuria, No Polydipsia, No Temperature Intolerance [facility] Past Medical History Medical History Alcohol abuse Bipolar 1 disorder Schizoaffective disorder, bipolar type Social History Social History Household Members: Family Housing: House Do you presently have visiting nurse or other home services: No Alcohol intake: current Alcohol intake frequency: a few times a week Alcohol type: beer Patient Tobacco Use Status: Current everyday Tobacco user Tobacco use type: Cigarette Cigarette Packs Per Day: 0.5 Cigarettes Per Day: 10.0 Years Smoked: 15 e-Cigarette/Vaping Use: Former Use Second Hand Smoke Exposure: Yes Substance Use Type: Marijuana Advance Directives: No Advance Directives Information Provided: No service: No Sexual orientation: Don't Know Physical Exam Vital Signs: Vital Signs: Last Vital Signs Temp 97.8 F 10/01/21 12:18 Pulse 99 10/01/21 12:18 Resp 16 10/01/21 12:18 BP 119/71 10/01/21 12:18 Pulse Ox 98 10/01/21 12:18 O2 Del Method 10/01/21 12:18 BMI result Body Mass Index 25.0 Const: Other: Appearance: Alert. Oriented X3. No acute distress. Eyes: Pupils equal, round and reactive to light. ENT: Pharynx normal. Neck: Normal inspection. Neck supple. No lymph nodes noted. No crepitus CVS: Normal heart rate and rhythm. Pulses normal. Normal S1 and S2 Respiratory: No respiratory distress. Breath sounds normal. No Wheezing. No rales Abdomen: Soft and nontender. No rigidity. No distention. Skin: Skin warm and dry. Normal skin color. Normal skin turgor. Extremities: No lower extremity edema. No Lacerations. No Rash Neuro: Oriented X 3. No motor deficit. No sensory deficit. Moving all extremities. No slurred speech. CN 2 through 12 grossly intact Psych: calm, cooperative, not talking, gives random responses not making much sense Course Course Course Narrative: Patient is well-known to the [facility] droop. U tox pending. Behavioral [facility] consult pending. Physician observation started at 12:25 1930, patient was evaluated by a [facility]. At this time, patient is not suicidal, not homicidal, patient otherwise doing well at this time, occasionally has labile mood. Patient would like to be discharged home, [facility] comments to send him home MDM - Psych Lab Data Result diagrams: 10/01/21 14:47 10/01/21 14:47 Labs: Lab Results 10/01/21 10/01/21 10/01/21 Range/Units 14:11 14:12 14:47 WBC (4.8-10.8) X10*3/uL RBC (4.60-5.80) X10*6/uL Hgb (14.0-18.0) g/dl Hct (42.0-52.0) % MCV (80.0-98.0) fL MCH (27.0-33.0) pg MCHC (31.0-36.0) g/dl RDW (11.0-16.0) % Plt Count (160-400) X10*3/uL MPV (9.4-12.4) fL Immature Gran % (Auto) (0.0-0.4) % Neut % (Auto) (45-73) % Lymph % (Auto) (20-40) % [place] % (Auto) (2-11) % Eos % (Auto) (0-4) % Baso % (Auto) (0-2) % Lymph # (Auto) (1.2-4.9) X10*3/uL [place] # (Auto) (0.1-1.2) X10*3/uL Eos # (Auto) (0.0-0.4) X10*3/uL Baso # (Auto) (0.0-0.2) X10*3/uL Abs Immat Gran (auto) (0.00-0.03) X10*3/uL Absolute Neuts (auto) (2.0-8.3) x10*3/uL Absolute Nucleated RBC (0.0-0.012) X10*3/uL Nucleated RBC % (auto) (0.0-0.2) /100WBC Sodium 140 (135-145) mmol/L Potassium 3.7 (3.3-5.1) mmol/L Chloride 104 (96-108) mmol/L Carbon Dioxide 25 (22-29) mmol/L Anion Gap 15 (12-20) BUN 18 H D (9-16) mg/dL Creatinine 0.94 (0.5-1.4) mg/dL Estim Creat Clear Calc 105.5 Estimated GFR > 60 Fasting Glucose 98 (60-99) mg/dL Calcium 8.9 (8.4-10.2) mg/dL Total Bilirubin 0.5 (0.0-1.0) mg/dL AST 22 (5-37) U/L ALT 24 (0-40) U/L Alkaline Phosphatase 73 (39-117) U/L Total Protein 7.5 (6.5-8.0) g/dL Albumin 3.9 (3.5-5.0) g/dL Urine Opiates Screen Not Detected (Not Detect) Urine Fentanyl Screen Not Detected (Not Detect) Ur Barbiturates Screen Not Detected (Not Detect) Ur Phencyclidine Scrn Not Detected (Not Detect) Ur Amphetamines Screen Not Detected (Not Detect) U Benzodiazepines Scrn Not Detected (Not Detect) Urine Cocaine Screen Not Detected (Not Detect) U Marijuana (THC) Screen POSITIVE H (Not Detect) Ethyl Alcohol < 10 mg/dL COVID-19 (LESLI) Negative (Negative) COVID-19 Clin Com See Note 10/01/21 Range/Units 14:47 WBC 9.0 (4.8-10.8) X10*3/uL RBC 4.28 L (4.60-5.80) X10*6/uL Hgb 14.4 (14.0-18.0) g/dl Hct 40.9 L (42.0-52.0) % MCV 95.6 (80.0-98.0) fL MCH 33.6 H (27.0-33.0) pg MCHC 35.2 (31.0-36.0) g/dl RDW 11.7 (11.0-16.0) % Plt Count 314 (160-400) X10*3/uL MPV 9.8 (9.4-12.4) fL Immature Gran % (Auto) 0.6 H (0.0-0.4) % Neut % (Auto) 62.7 (45-73) % Lymph % (Auto) 23.0 (20-40) % [place] % (Auto) 11.8 H (2-11) % Eos % (Auto) 1.6 (0-4) % Baso % (Auto) 0.3 (0-2) % Lymph # (Auto) 2.1 (1.2-4.9) X10*3/uL [place] # (Auto) 1.1 (0.1-1.2) X10*3/uL Eos # (Auto) 0.1 (0.0-0.4) X10*3/uL Baso # (Auto) 0.0 (0.0-0.2) X10*3/uL Abs Immat Gran (auto) 0.05 H (0.00-0.03) X10*3/uL Absolute Neuts (auto) 5.6 (2.0-8.3) x10*3/uL Absolute Nucleated RBC 0.000 (0.0-0.012) X10*3/uL Nucleated RBC % (auto) 0.0 (0.0-0.2) /100WBC Sodium (135-145) mmol/L Potassium (3.3-5.1) mmol/L Chloride (96-108) mmol/L Carbon Dioxide (22-29) mmol/L Anion Gap (12-20) BUN (9-16) mg/dL Creatinine (0.5-1.4) mg/dL Estim Creat Clear Calc Estimated GFR Fasting Glucose (60-99) mg/dL Calcium (8.4-10.2) mg/dL Total Bilirubin (0.0-1.0) mg/dL AST (5-37) U/L ALT (0-40) U/L Alkaline Phosphatase (39-117) U/L Total Protein (6.5-8.0) g/dL Albumin (3.5-5.0) g/dL Urine Opiates Screen (Not Detect) Urine Fentanyl Screen (Not Detect) Ur Barbiturates Screen (Not Detect) Ur Phencyclidine Scrn (Not Detect) Ur Amphetamines Screen (Not Detect) U Benzodiazepines Scrn (Not Detect) Urine Cocaine Screen (Not Detect) U Marijuana (THC) Screen (Not Detect) Ethyl Alcohol mg/dL COVID-19 (LESLI) (Negative) COVID-19 Clin Com Discharge Plan Discharge Clinical Impression: Schizoaffective disorder, bipolar type Patient Disposition: Home, Self-Care Instructions: Schizoaffective Disorder (ED) Additional Instructions: Please follow-up with your primary care physician tomorrow. If you have any worsening or new symptoms, please return to the emergency room or call 911 Prescriptions: No Action ibuprofen 800 mg tablet 1 tab PO Q8H nicotine 21 mg/24 hr Patch 24 Hour 21 mg transdermal DAILY 28 Days Qty: 28 0RF cyanocobalamin (vitamin B-12) [Vitamin B-12] 100 mcg Tablet 100 mcg PO DAILY 30 Days Qty: 30 0RF Rx Instructions: medication in on Hold at [facility] melatonin 3 mg tablet 2 tab PO BEDTIME PRN (Reason: insomnia) nicotine (polacrilex) 2 mg gum 2 mg PO Q2H PRN (Reason: Nicotine Cravings) divalproex 500 mg tablet extended release 24 hr 3 tab PO BEDTIME Invega Sustenna 234 mg/1.5 mL syringe 1.25 ml IM Q4W
[2021-10-01] MEDS: LORazepam 1 MG TABLET 2 MG PO (13:31)
[2021-10-01 14:34] LABS: COVID-19 Test Negative (Negative)
[2021-10-01 14:35] LABS: Amphetamine Screen Urine Not Detected (Not Detect); Barbiturates, Urine Not Detected (Not Detect); Benzodiazepines Screen Urine Not Detected (Not Detect); Cannabinoid Screen Urine POSITIVE (Not Detect); Cocaine Screen Urine Not Detected (Not Detect); Fentanyl, urine Not Detected (Not Detect); Opiate Screen Urine Not Detected (Not Detect); Phencyclidine Screen Urine Not Detected (Not Detect)
[2021-10-01 14:52] LABS: MANUAL DIFF FLAG NO
[2021-10-01 15:02] LABS: Basophils Percent Auto 0.3 % (0-2); Eosinophils Absolute Auto 0.1 X10*3/uL (0.0-0.4); Eosinophils Percent Auto 1.6 % (0-4); Hematocrit 40.9 % (42.0-52.0); Hemoglobin 14.4 g/dl (14.0-18.0); Imm Gran Abs Auto 0.05 X10*3/uL (0.00-0.03); Imm Gran Pct Auto 0.6 % (0.0-0.4); Lymphocytes Absolute Auto 2.1 X10*3/uL (1.2-4.9); Mean Corpuscular HGB Conc 35.2 g/dl (31.0-36.0); Mean Corpuscular Hemoglobin 33.6 pg (27.0-33.0); Mean Corpuscular Volume 95.6 fL (80.0-98.0); Mean Platelet Volume 9.8 fL (9.4-12.4); Monocytes Absolute Auto 1.1 X10*3/uL (0.1-1.2); Monocytes Percent Auto 11.8 % (2-11); Neutrophils Absolute Auto 5.6 x10*3/uL (2.0-8.3); Neutrophils Percent Auto 62.7 % (45-73); Platelet Count 314 X10*3/uL (160-400); Red Blood Count 4.28 X10*6/uL (4.60-5.80); Red Cell Distribution Width 11.7 % (11.0-16.0)
[2021-10-01 15:18] LABS: Alanine Aminotransferase 24 U/L (0-40); Albumin Level 3.9 g/dL (3.5-5.0); Alkaline Phosphatase 73 U/L (39-117); Anion Gap 15 (12-20); Aspartate Amino Transferase 22 U/L (5-37); Bilirubin Total 0.5 mg/dL (0.0-1.0); Blood Urea Nitrogen 18 mg/dL (9-16); Calcium 8.9 mg/dL (8.4-10.2); Carbon Dioxide 25 mmol/L (22-29); Chloride 104 mmol/L (96-108); Creatinine Clr Calc Pharmacy 105.5; Estimated Glomerular Filt Rate > 60; Ethanol < 10 mg/dL; Glucose Fasting 98 mg/dL (60-99); Potassium 3.7 mmol/L (3.3-5.1); Sodium 140 mmol/L (135-145); Total Protein 7.5 g/dL (6.5-8.0)
[2021-10-02 01:52] VITALS: BP 148/86; PULSE 100; RESP 18; O2SAT 97
[2021-10-02] MEDS: LORazepam 1 MG TABLET PO (04:22)
== END 2021-10-02 06:42 | disposition home or self-care (01) ==
PROVIDERS: Emergency Provider Emergency Medicine
DX: F20.9 Schizophrenia, unspecified (principal); F31.9 Bipolar disorder, unspecified; Z20.822 Contact with and (suspected) exposure to COVID-19; F17.210 Nicotine dependence, cigarettes, uncomplicated; Z71.6 Tobacco abuse counseling; Z79.899 Other long term (current) drug therapy
CPT/HCPCS: 36415; 80053; 80307; 82077; 85025; 87635; 99284

== ENCOUNTER 2021-10-03 08:51 | Inpatient (IN) | payer OTHER, SELFPAY ==
--- NOTE | 2021-10-03 | ECG_ITS ---
Test Reason : MEDICAL MATILDA Blood Pressure : / mmHG Vent. Rate : 071 BPM Atrial Rate : 071 BPM P-R Int : 138 ms QRS Dur : 080 ms QT Int : 358 ms P-R-T Axes : 034 115 059 degrees QTc Int : 389 ms Normal sinus rhythm Right axis deviation Abnormal ECG When compared with ECG of 16-AUG-2021 08:20, No significant change was found Referred By: Maddi Caldwell Electronically Signed By:MARIBEL QUIÑONES MD
[2021-10-03 08:59] VITALS: BP 126/72; BP 138/76; PULSE 100; PULSE 93; TEMP 36.6; O2SAT 97; BMI 25.0
--- NOTE | 2021-10-03 09:20 | ED_ITS ---
HPI - Psych General Chief Complaint: Psychiatric Symptoms Stated Complaint: crisis feels unsafe Time Seen by Provider: 10/03/21 09:04 Source: patient and EMS Mode of arrival: EMS Limitations: no limitations History of Present Illness HPI Narrative: 26-year-old male with a history of schizoaffective disorder presents with reports of racing thoughts, feeling unsafe, not been taking his medications. No SI or HI. Occasional alcohol use. No additional substance use Related Data Home Medications Medication Instructions Recorded Confirmed melatonin 3 mg tablet 2 tab PO BEDTIME PRN insomnia 08/30/21 10/03/21 nicotine (polacrilex) 2 mg gum 2 mg PO Q2H PRN Nicotine Cravings 08/30/21 10/03/21 divalproex 500 mg tablet,extended 3 tab PO BEDTIME 09/19/21 10/03/21 release 24 hr paliperidone palmitate 234 mg/1.5 1.25 ml IM Q4W 09/19/21 10/03/21 mL intramuscular syringe (Invega Sustenna) cyanocobalamin (vitamin B-12) 1 tab PO DAILY 10/03/21 10/03/21 1,000 mcg tablet multivitamin with folic acid 400 1 tab PO DAILY 10/03/21 10/03/21 mcg tablet (Daily-Zo (with folic acid)) Previous Rx's Medication Instructions Recorded nicotine 21 mg/24 hr daily 21 mg transdermal DAILY 28 days 08/28/21 transdermal patch #28 ea Allergies Allergy/AdvReac Type Severity Reaction Status Date / Time haloperidol [From Haldol] AdvReac Intermediate EPS Verified 08/21/21 11:47 Review of Systems Review of Systems: Yes all other systems are reviewed and are negative Constitutional: Constitutional: Reports no additional constitutional complaints, Denies body ache(s), Denies chills, Denies fever(s), Denies headache(s) and Denies weakness Eyes: Eyes: Reports no additional eye complaints and Denies change in vision ENT: Reports system reviewed and no additional complaints, except as documented, Denies dizziness, Denies headache(s), Denies nasal congestion, Denies nasal discharge and Denies neck pain Cardiovascular: Cardiovascular: Reports no additional cardiovascular complaints, Denies chest pain, Denies leg edema and Denies dyspnea Respiratory: Respiratory: Reports no additional respiratory complaints, Denies cough and Denies dyspnea Gastrointestinal: Gastrointestinal: Reports no additional gastrointestinal complaints, Denies abdominal pain, Denies diarrhea, Denies nausea and Denies vomiting Genitourinary: Genitourinary: Denies urinary incontinence Musculoskeletal: Musculoskeletal: Reports no additional musculoskeletal complaints, Denies back pain, Denies arthralgias, Denies joint swelling, Denies neck pain, Denies numbness and Denies tingling Integumentary/Breasts: Skin/Breast: Reports system reviewed and no additional complaints, except as docu and Denies rash Neurologic: Reports system reviewed and no additional complaints, except as documented, Denies Abnormal speech present, Denies dizziness, Denies headache(s), Denies numbness, Denies tingling and Denies weakness Psychiatric: Psychiatric: Reports anxiety, Reports irritability, Denies homicidal ideation and Denies suicidal ideation [facility] Past Medical History Attestation statement: The following information was validated with the patient. Source: old records reviewed and nursing notes reviewed Medical History Alcohol abuse Bipolar 1 disorder Schizoaffective disorder, bipolar type Social History Social History Household Members: Family Housing: House Do you presently have visiting nurse or other home services: No Alcohol intake: current Alcohol intake frequency: a few times a week Alcohol type: beer Patient Tobacco Use Status: Current everyday Tobacco user Tobacco use type: Cigarette Cigarette Packs Per Day: 0.5 Cigarettes Per Day: 10.0 Years Smoked: 15 Smoked in Last 30 Days: Yes e-Cigarette/Vaping Use: Former Use Second Hand Smoke Exposure: Yes Substance Use Type: Marijuana Advance Directives: No Advance Directives Information Provided: No service: No Sexual orientation: Don't Know Physical Exam Vital Signs: Vital Signs: Last Vital Signs Temp 97.9 F 10/03/21 08:59 Pulse 93 10/03/21 08:59 BP 126/72 10/03/21 08:59 Pulse Ox 97 10/03/21 08:59 O2 Del Method 10/03/21 08:59 BMI result Body Mass Index 25.0 Const: General: alert Orientation/consciousness: patient oriented x3 Limitations: no limitations HEENT: Head: Yes normal to inspection Ears: hearing grossly normal bilatera lly General nose exam: Normal external nose present Face and sinus: Yes normal facial exam Mouth: Normal oral and palatal mucosa present Throat: Yes posterior oropharynx normal Eyes: General: appearance normal, both eyes and all related structures Pupils: Equal, round and reactive pupils present Neck: Neck: Yes normal visual inspection Chest: Chest palpation & inspection: normal inspection of the chest Resp: Effort & Inspection: normal respiratory effort Auscultation: clear to auscultation bilaterally Cardio: Rate: regular rate Rhythm: regular rhythm Peripheral pulses: Peripheral pulses 2+ throughout GI: Inspection: Yes normal to inspection Palpation (GI): Soft to palpation and nontender Auscultation: normal bowel sounds Back/Spine/Pelvis: Thoracic/Lumbar Spine: thoracic and lumbar spine normal to inspection Skin: General skin exam: no rashes or lesions noted Neuro: Other: Patient anxious, restless, pacing General: patient oriented x3, no focal motor deficits and normal sensation to monofilament Cranial nerves: Yes CN's II-XII intact bilaterally and Yes Equal, round and reactive pupils present Cognition (Neuro): normal cognition Speech: No Abnormal speech present Gait exam (Neuro): Normal gait present Motor exam (neuro): 5/5 motor strength present throughout Extrem: General: Yes normal to inspection Course Course Course Narrative: Spoke to care team. Patient is going to be evaluated by [facility] crisis. Was seen today by Zaida the psychiatric nurse practitioner and plan is for admission to the psychiatric unit. Patient is voluntary as of right now but may change his mind. If he does then per [facility] we will hold on section. MDM - Psych MDM Narrative Medical decision making narrative: 26-year-old male with a history of schizoaffective disorder presents with racing thoughts, noncompliant with medication, feels unsafe home. No SI or HI. No concern for acute ingestion or trauma. Patient will need a crisis evaluation. Patient is quite restless, pacing. He is agreeable to a dose of oral Ativan Medical Records Attestation: I reviewed the patient's medical records. Lab Data Attestation: I reviewed the patient's lab results. Labs: Lab Results 10/03/21 10/03/21 10/03/21 Range/Units 09:14 09:36 09:53 Urine Color YELLOW Urine Appearance CLEAR Urine pH 6.5 (5.0-8.0) Ur Specific [place] 1.010 (1.005-1.025) Urine Protein NEG (NEG-TRACE) MG/DL Urine Glucose (UA) NEG (NEG) MG/DL Urine Ketones NEG (NEG) MG/DL Urine Blood NEG (NEG) Urine Nitrite NEG (NEG) Ur Leukocyte Esterase NEG (NEG) Urine Opiates Screen Not Detected (Not Detect) Urine Fentanyl Screen Not Detected (Not Detect) Ur Barbiturates Screen Not Detected (Not Detect) Ur Phencyclidine Scrn Not Detected (Not Detect) Ur Amphetamines Screen Not Detected (Not Detect) U Benzodiazepines Scrn Not Detected (Not Detect) Urine Cocaine Screen Not Detected (Not Detect) U Marijuana (THC) Screen POSITIVE H (Not Detect) COVID-19 (LESLI) Negative (Negative) COVID-19 Clin Com See Note Discharge Plan Discharge Clinical Impression: Schizoaffective disorder, bipolar type Patient Disposition: Admitted As Inpatient
[2021-10-03 09:44] LABS: Appearance Urine CLEAR; Color Urine YELLOW; Glucose Urine UA NEG (NEG); Leukocyte Esterase Urine NEG (NEG); Nitrite Urine NEG (NEG); PH 6.5 (5.0-8.0); Urine Blood NEG (NEG); Urine Ketones NEG (NEG); Urine Protein NEG (NEG-TRACE)
[2021-10-03] MEDS: Nicotine Polacrilex 2 MG GUM BUCCAL (09:44)
[2021-10-03] MEDS: LORazepam 1 MG TABLET 2 MG PO (09:44)
[2021-10-03 10:06] LABS: COVID-19 Test Negative (Negative); IDNOW Serial# 16C4AD1C
--- NOTE | 2021-10-03 10:25 | PC.NURSE ---
PT BROUGHT TO ED VIA EMS VOLUNTARILY FOR C/O FEELING UNSAFE. PT STATED THAT EVERYONE KEEPS TAKING MY THINGS, THEY ARE ALL ROBBING ME . PT PACING AND REPORTS ANXIETY. DENIES SI/HI. DENIES PAIN, VSS. N CONSULT SUBMITTED. MEDS GIVEN DOCUMENTED. PT IN ROOM RESTING AT THIS TIME.
--- NOTE | 2021-10-03 12:02 | P.CNPS_ITS ---
History of Present Illness Date of Service: 10/03/2021 Chief Complaint: crisis feels unsafe Reason for Consult: psychosis Requesting physician: Marisa Bonds Discussed with referring provider: Yes Sources of Information: patient interviewed, chart reviewed and crisis/core team assessment reviewed HPI Narrative: Mr. Lockhart is a 26 year old male with hx of schizoaffective disorder, well known to this filing writer and care team several ED visits in the past 2 weeks. He received last Invega Sustenna 234mg IM on 09/21 here in ED. He self presented to [facility] ED reporting hearing voices of the devil telling him that his mother and sister are evil and trying to kill me. Pt reports hearing voices telling him to hurt others- not specific person at this point but later pt reports he knows that some of the staff members in the ED are trying to poison other pts and that is his mission to protect some patients. He presents as labile, reports feeling tortured by voices but unable to connect need for treatment with decrease symptoms. He reports poor sleep and poor appetite. It does seem that paliperidone not most effective for him, although he has history of dystonia with haldol. He needs ROSS as he is not compliant with medications. In the ED, pt intrusive with other peers. Pt insists that he has to save another pt in the ED because he heard voices telling him this. Despite staff and peer, asking pt to keep his distance, pt kept being intrusive. Pt threatening certain staff as he thinks they are poisoning other pts. Past Psychiatric History: IP- 2019 [facility], M5 05/2021, several ED visit for psychiatric symptoms in past month 07/2021 (3). numerous hosps elsewhere. OP-[facility]. No current providers. Declines referrals Trials- Risperdal, olanzapine, paliperidone, depakote. Medical Evaluation Reviewed: Yes [facility] Medical History Alcohol abuse Bipolar 1 disorder Schizoaffective disorder, bipolar type Family History: mother - bipolar disorder father - bipolar disorder sister - post- depression, anxiety Social History: born in [place], raised by his mother. has one sister. did not graduate from . was with a woman for 11 years and he now has an 11 yo daughter. he is from the girl's mother. Lives alone in an apartment. Trauma History: denies today. Diagnostics Vital Signs (24Hr): Vital Signs - 24 hr 10/03/21 08:59 Temperature 97.9 F Pulse Rate 93 Blood Pressure 126/72 Pulse Oximetry 97 Oxygen Delivery Method Room Air BMI result Body Mass Index 25.0 Labs Labs: Laboratory Results - last 48 hr 10/03/21 10/03/21 09:14 09:36 Urine Color YELLOW Urine Appearance CLEAR Urine pH 6.5 Ur Specific [place] 1.010 Urine Protein NEG Urine Glucose (UA) NEG Urine Ketones NEG Urine Blood NEG Urine Nitrite NEG Ur Leukocyte Esterase NEG COVID-19 (LESLI) Negative COVID-19 Clin Com See Note Mental Status Exam Mental Status Exam Narrative: Appearance: wearing hospital gown, fair hygiene in NAD Behavior:cooperative psychomotor: no agitation or retardation Speech: clear, normal rate/rhythm/volume, spontaneous Thought process:linear Thought content: hearing voices, paranoid and shinto delusions, open to receive psychiatric tx. Mood: anxious Affect: labile SI:none HI:none VH/AH: +AH of God and Devil. Delusions: + shinto/paranoid delusions Insight/judgment:fair x 2. Memory/cog: alert, oriented x 3. Medications Medications Current Medications Nicotine Polacrilex (Nicotine Polacrilex 2 Mg Gum) 2 mg BUCCAL QID PRN PRN Reason: nicotine cravings Last Admin: 10/03/21 09:44 Dose: 2 mg Allergies Allergies Allergy/AdvReac Type Severity Reaction Status Date / Time haloperidol [From Haldol] AdvReac Intermediate EPS Verified 08/21/21 11:47 Assessment & Plan Assessment & Plan (1) Schizoaffective disorder, bipolar type: Status: Acute Code(s): F25.0 - Schizoaffective disorder, bipolar type Plan Mr. Lockhart is a 26 year-old male with hx of schizoaffective disorder well known to this filing writer and ED providers through several ED visits in past weeks. Pt received last Invega Sustenna 234mg IM on 09/21, it does not seem like this most effective medication for him. At this point, pt presents as labile, impulsive, intrusive with others, reporting CAH of hurting others, increasingly paranoid towards family, intrusive with other patients here, difficult to redirect. PLAN 1. admit to inpatient psychiatric unit for further safety, containment, and stabilization. 2. add olanzapine, may have to consider different ROSS when next one is due on 10/11/2021. I spent minutes with the patient and/or on the patient floor today, greater than?50% of which was spent counseling/coordinating care.
[2021-10-03 14:08] LABS: Amphetamine Screen Urine Not Detected (Not Detect); Barbiturates, Urine Not Detected (Not Detect); Benzodiazepines Screen Urine Not Detected (Not Detect); Cannabinoid Screen Urine POSITIVE (Not Detect); Cocaine Screen Urine Not Detected (Not Detect); Fentanyl, urine Not Detected (Not Detect); Opiate Screen Urine Not Detected (Not Detect); Phencyclidine Screen Urine Not Detected (Not Detect)
[2021-10-03 18:00] VITALS: BP 133/41; PULSE 82; TEMP 36.6; O2SAT 98
--- NOTE | 2021-10-03 22:06 | PC.ADMIT ---
Pt is a 26 year old male who presents to to from [facility] ED at approx 2044 on a cv status. Pt covid -, Utox + for THC. Pt denied all psych symptoms. Pt arrived on unit and ate some food and then went to sleep. Provider notified of admission and orders. Start treatment plan and monitor for safety.
[2021-10-04] MEDS: traZODone HCL 50 MG TABLET PO (00:08)
[2021-10-04 06:00] VITALS: BP 128/80; PULSE 88; RESP 18; TEMP 36.5; O2SAT 98
[2021-10-04 07:53] LABS: Estimated Average Glucose 100 mg/dL; Hemoglobin A1c % 5.1 %
[2021-10-04 08:00] LABS: Alanine Aminotransferase 24 U/L (0-40); Albumin Level 4.1 g/dL (3.5-5.0); Alkaline Phosphatase 72 U/L (39-117); Anion Gap 12 (12-20); Aspartate Amino Transferase 22 U/L (5-37); Bilirubin Total 0.6 mg/dL (0.0-1.0); Blood Urea Nitrogen 10 mg/dL (9-16); Calcium 9.1 mg/dL (8.4-10.2); Carbon Dioxide 29 mmol/L (22-29); Chloride 102 mmol/L (96-108); Cholesterol 171 mg/dL; Creatinine Clr Calc Pharmacy 111.2; Estimated Glomerular Filt Rate > 60; Glucose Fasting 115 mg/dL (60-99); HDL Cholesterol 42 mg/dL; LDL Cholesterol Calculated 111 mg/dl; Potassium 4.8 mmol/L (3.3-5.1); Sodium 138 mmol/L (135-145); Total Protein 7.6 g/dL (6.5-8.0); Triglycerides 94 mg/dL
[2021-10-04] MEDS: Nicotine Polacrilex 2 MG GUM BUCCAL ×2 (08:34→15:49)
[2021-10-04 08:50] LABS: Thyroid Stimulating Hormone 1.14 uIU/mL (0.32-4.0)
--- NOTE | 2021-10-04 10:36 | P.HPPS_ITS ---
HPI Date of Service: 10/04/21 Chief Complaint: SI Sources of Information: patient interviewed, chart reviewed and crisis/core team assessment reviewed HPI Subjective Notes: Rios Warning and Conditional Voluntary Healthcare Proxy: No Guardianship: No Medical Problems Affecting Mental Status: No Narrative: Adi is a 26 y.o. Male who carries a dx of schizoaffective DO. He presented to [facility] ED several times since his discharge from [facility] on 08/28/21. He reported racing thoughts, feeling unsafe, AH of the devil telling him his mother and sister are evil and trying to kill me,? and med non-adherence. He also reported hearing voices telling him to hurt others. Denied SI/SIB/HI. Pt last received Invega Sustenna 234mg IM on 09/21/21 at [facility] ED. While in the ED BH pod, pt reports that staff members in the ED are trying to poison other pts and that is his mission to protect some patients, he was verbally threatening staff. Pt has poor sleep and poor appetite and appears decompensated. In the ED pod he was self dialoguing and was up all night. Utox positive for cocaine. Per psych consult note on 10/03/2021: ?It does seem that paliperidone not most effective for him, although he has history of dystonia with haldol. He needs ROSS as he is not compliant with medications.? 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 Admits to hearing voices a little bit, denies that they are negative. Pt is labile and floridly psychotic throughout interview, says Do i belong in hell or heaven. Pt says he is not eating, has a stomach cramp, then says he believes he is and says I love this little enid while holding his abdomen. Endorses hyposomnia. Says he has recently been staying with his mom but that It was too much ringing and phones, it pissed me off. Also says he had a dream that my mom was going to be controlling. Pt says he is anxious because I dont want to disappear, i want to be here with the people. Past Psychiatric History: -Hx of multiple psych admissions, last IPLOC 07/2021 at [facility] M3, M5 05/2021 -No current OP providers. Hx of lack of follow up with OP providers -Past med trials: Risperdal, olanzapine, paliperidone, depakote, haldol (dystonic) Medical Evaluation Reviewed: Yes [facility] Medical History Alcohol abuse Bipolar 1 disorder Schizoaffective disorder, bipolar type Family History: mother - bipolar disorder father - bipolar disorder sister - post- depression, anxiety Social History: born in [place], raised by his mother. has one sister. did not graduate from . was with a woman for 11 years and he now has an 11 yo d aughter. he is from the girl's mother. Lives alone in an apartment. Trauma History: denies today. Diagnostics Vital Signs (24Hr): Vital Signs - 24 hr 10/03/21 18:00 10/04/21 06:00 Temperature 98 F 97.7 F Pulse Rate 82 88 Respiratory Rate 18 Blood Pressure 133/41 L 128/80 Pulse Oximetry 98 98 BMI result Body Mass Index 25.0 Labs Results: 10/04/21 07:36 Labs: Laboratory Results - last 48 hr 10/03/21 10/03/21 10/03/21 09:14 09:36 09:53 Sodium Potassium Chloride Carbon Dioxide Anion Gap BUN Creatinine Estim Creat Clear Calc Estimated GFR Fasting Glucose Estimat Average Glucose Hemoglobin A1c % Calcium Total Bilirubin AST ALT Alkaline Phosphatase Total Protein Albumin Triglycerides Cholesterol LDL Cholesterol, Calc HDL Cholesterol TSH Urine Color YELLOW Urine Appearance CLEAR Urine pH 6.5 Ur Specific [place] 1.010 Urine Protein NEG Urine Glucose (UA) NEG Urine Ketones NEG Urine Blood NEG Urine Nitrite NEG Ur Leukocyte Esterase NEG Urine Opiates Screen Not Detected Urine Fentanyl Screen Not Detected Ur Barbiturates Screen Not Detected Ur Phencyclidine Scrn Not Detected Ur Amphetamines Screen Not Detected U Benzodiazepines Scrn Not Detected Urine Cocaine Screen Not Detected U Marijuana (THC) Screen POSITIVE H COVID-19 (LESLI) Negative COVID-19 Clin Com See Note 10/04/21 10/04/21 07:36 07:36 Sodium 138 Potassium 4.8 D Chloride 102 Carbon Dioxide 29 Anion Gap 12 BUN 10 Creatinine 0.86 Estim Creat Clear Calc 111.2 Estimated GFR > 60 Fasting Glucose 115 H Estimat Average Glucose 100 Hemoglobin A1c % 5.1 Calcium 9.1 Total Bilirubin 0.6 AST 22 ALT 24 Alkaline Phosphatase 72 Total Protein 7.6 Albumin 4.1 Triglycerides 94 Cholesterol 171 D LDL Cholesterol, Calc 111 HDL Cholesterol 42 TSH 1.14 Urine Color Urine Appearance Urine pH Ur Specific [place] Urine Protein Urine Glucose (UA) Urine Ketones Urine Blood Urine Nitrite Ur Leukocyte Esterase Urine Opiates Screen Urine Fentanyl Screen Ur Barbiturates Screen Ur Phencyclidine Scrn Ur Amphetamines Screen U Benzodiazepines Scrn Urine Cocaine Screen U Marijuana (THC) Screen COVID-19 (LESLI) COVID-19 Clin Com Meds/Allergies Meds Home Medications Medication Instructions Recorded Confirmed Type melatonin 3 mg tablet 2 tab PO BEDTIME PRN insomnia 08/30/21 10/03/21 History nicotine (polacrilex) 2 mg gum 2 mg PO Q2H PRN Nicotine Cravings 08/30/21 10/03/21 History divalproex 500 mg tablet,extended 3 tab PO BEDTIME 09/19/21 10/03/21 History release 24 hr paliperidone palmitate 234 mg/1.5 1.25 ml IM Q4W 09/19/21 10/03/21 History mL intramuscular syringe (Invega Sustenna) cyanocobalamin (vitamin B-12) 1 tab PO DAILY 10/03/21 10/03/21 History 1,000 mcg tablet multivitamin with folic acid 400 1 tab PO DAILY 10/03/21 10/03/21 History mcg tablet (Daily-Zo (with folic acid)) Allergies Allergies Allergy/AdvReac Type Severity Reaction Status Date / Time haloperidol [From Haldol] AdvReac Intermediate EPS Verified 08/21/21 11:47 Mental Status Exam Mental Status Exam Narrative: Alert but not oriented to time or situation. In casual attire, unkempt, pacing halls. Poor eye contact, inattentive. No Tics or Tremors. No abnormal involuntary movements. Labile, difficult to engage in conversation due to psychosis. Non-pressured speech, spontaneous with regular rate and rhythm, normal volume and prosody. No prolonged speech latency or dysarthria. Mood is [did not state], affect is tearful, incongruent, anxious, labile. Denies SI/SIB/HI upon inquiry. Denies A/VH. Endorses paranoid and grandiose delusional thought content. Thoughts are disorganized. No known cognitive or memory impairm ent. Insight/ Judgment poor. Assessment & Plan Assessment & Plan (1) Schizoaffective disorder, bipolar type: Status: Acute Code(s): F25.0 - Schizoaffective disorder, bipolar type Matthew Joshi is a 26 y.o. Male who carries a dx of schizoaffective DO, bipolar type. He presented to [facility] ED several times since his discharge from [facility] M3 on 08/28/21. Pt received last Invega Sustenna 234mg IM on 09/21, it does not seem like this most effective medication for him. At this point, pt presents as labile, impulsive, intrusive with others, reporting CAH of hurting others, increasingly paranoid towards family, intrusive with other patients here, difficult to redirect. Utox positive for cannabis. Plan: On invega sustenna 234 mg, next one is due on 10/11/2021. Will re-start depakote ER 500 mg QHS for mood stability and trilafon 4 mg TID for psychosis. Will re-start olanzapine 10 mg ODT BID PRN, as this has helped in the past for psychosis, agitation, and anxiety. Re-start ativan 1 mg BID PRN for agitation, anxiety, as an anti-manic agent.? Q15 min safety checks, CV Monitor response to medications. Monitor for safety in the milieu. Discharge on stabilization. Patient seen. Chart reviewed. Discussed with team. Obtain collateral contact info?as needed Patient educated on: diagnosis, medication risk/benefits and therapeutic strategies Reason for continued inpatient stay Substantial Risk for: inability to function, rapid decompensation and med/psych decompensation
[2021-10-04] MEDS: hydrOXYzine HCL 25 MG TABLET PO (11:27)
[2021-10-04] MEDS: OLANZapine ODT 10 MG TAB.RAPDIS TRANSLINGU ×2 (11:39→15:41)
[2021-10-04 16:17] VITALS: BP 129/80; PULSE 112; TEMP 37.1
[2021-10-04] MEDS: LORazepam 1 MG TABLET PO (17:24)
[2021-10-04] MEDS: Divalproex Sodium ER 500 MG TAB.ER.24H PO (19:21)
[2021-10-04] MEDS: Perphenazine 4 MG TABLET PO (19:22)
[2021-10-05] MEDS: traZODone HCL 50 MG TABLET PO ×2 (04:19→23:33)
[2021-10-05] MEDS: hydrOXYzine HCL 25 MG TABLET PO ×2 (04:19→16:49)
[2021-10-05] MEDS: Nicotine Polacrilex 2 MG GUM BUCCAL ×4 (04:20→23:35)
[2021-10-05 06:00] VITALS: BP 126/76; PULSE 94; RESP 18; TEMP 36.3; O2SAT 98
[2021-10-05] MEDS: LORazepam 1 MG TABLET PO (07:59)
[2021-10-05] MEDS: Perphenazine 4 MG TABLET PO ×2 (07:59→16:47)
--- NOTE | 2021-10-05 12:34 | HO.PSYCHPN ---
Subjective Subjective Date of Service: 10/05/21 Reason For Visit: SI Subjective Notes: Conditional Voluntary Interim History: Chart reviewed. Discussed with Nursing. Noted ongoing hallucinations. Sleep broken. Noted Velia Ham on 09/21/2021. Patient reports refusing medications pre-admission and having psychosis, but feels that he being back on medication and they will be helpful. Reports hearing his mother and father which is been happening for 8 years. Denied depression or SI.safe on the unit. Reports wanting discharge tomorrow. Medication Compliance: Yes Side effects from medications: No Attending Groups: Intermittent Review of Systems Acute medical concerns: No Review of Systems Review of Systems Unremarkable Mental Status Exam Mental Status Exam Narrative: Pleasant. Does appear guarded and superficially engaged. Self-care okay. Denied depression. Affect restricted. No SI or HI. Does endorse auditory hallucinations. Denied command. Insight and judgment limited at times Diagnostics Vital Signs (24Hr): Vital Signs - 24 hr 10/04/21 16:17 10/05/21 06:00 Temperature 98.8 F 97.4 F Pulse Rate 112 H 94 Respiratory Rate 18 Blood Pressure 129/80 126/76 Pulse Oximetry 98 Oxygen Delivery Method Room Air BMI result Body Mass Index 25.0 Labs Results: 10/04/21 07:36 Labs: Laboratory Results - last 48 hr 10/03/21 10/04/21 10/04/21 09:53 07:36 07:36 Sodium 138 Potassium 4.8 D Chloride 102 Carbon Dioxide 29 Anion Gap 12 BUN 10 Creatinine 0.86 Estim Creat Clear Calc 111.2 Estimated GFR > 60 Fasting Glucose 115 H Estimat Average Glucose 100 Hemoglobin A1c % 5.1 Calcium 9.1 Total Bilirubin 0.6 AST 22 ALT 24 Alkaline Phosphatase 72 Total Protein 7.6 Albumin 4.1 Triglycerides 94 Cholesterol 171 D LDL Cholesterol, Calc 111 HDL Cholesterol 42 TSH 1.14 Urine Opiates Screen Not Detected Urine Fentanyl Screen Not Detected Ur Barbiturates Screen Not Detected Ur Phencyclidine Scrn Not Detected Ur Amphetamines Screen Not Detected U Benzodiazepines Scrn Not Detected Urine Cocaine Screen Not Detected U Marijuana (THC) Screen POSITIVE H Medications Medications Current Medications Acetaminophen (Acetaminophen 325 Mg Tablet) 650 mg PO Q6H PRN PRN Reason: Headache/Pain Mild Scale (1-3) Al Hydroxide/Mg Hydroxide (Magnesium Hydrox/Alum Hydrox 30 Ml Oral.Susp) 30 ml PO Q6H PRN PRN Reason: Heartburn/Nausea Divalproex Sodium (Divalproex Sodium Er 500 Mg Tab.Er.24h) 500 mg PO BEDTIME FANNIE Last Admin: 10/04/21 19:21 Dose: 500 mg Hydroxyzine HCl (Hydroxyzine Hcl 25 Mg Tablet) 25 mg PO Q6H PRN PRN Reason: Anxiety Last Admin: 10/05/21 04:19 Dose: 25 mg Lorazepam (Lorazepam 1 Mg Tablet) 1 mg PO BID PRN PRN Reason: anxiety Last Admin: 10/05/21 07:59 Dose: 1 mg Magnesium Hydroxide (Milk Of Magnesia 30 Ml Oral.Susp) 30 ml PO DAILY PRN PRN Reason: Constipation Nicotine Polacrilex (Nicotine Polacrilex 2 Mg Gum) 2 mg BUCCAL QID PRN PRN Reason: nicotine cravings Last Admin: 10/05/21 08:06 Dose: 2 mg Olanzapine (Olanzapine Odt 10 Mg Tab.Rapdis) 10 mg TRANSLINGU BID PRN PRN Reason: psychosis, agitation Last Admin: 10/04/21 15:41 Dose: 10 mg Perphenazine (Perphenazine 4 Mg Tablet) 4 mg PO BID FANNIE Last Admin: 10/05/21 07:59 Dose: 4 mg Trazodone HCl (Trazodone Hcl 50 Mg Tablet) 50 mg PO BEDTIME PRN PRN Reason: Insomnia Last Admin: 10/05/21 04:19 Dose: 50 mg Allergies Allergies Allergy/AdvReac Type Severity Reaction Status Date / Time haloperidol [From Haldol] AdvReac Intermediate EPS Verified 08/21/21 11:47 Assessment & Plan Assessment & Plan (1) Schizoaffective disorder, bipolar type: Status: Acute Code(s): F25.0 - Schizoaffective disorder, bipolar type Matthew Joshi is a 26 y.o. Male who carries a dx of schizoaffective DO, bipolar type. [place] [facility] [place] since his [place] [facility] [place] [place]. Pt received last Invega Sustenna 234mg IM on 09/21, it does not seem like this most effective medication for him. At this point, pt presents as labile, impulsive, intrusive with others, reporting CAH of hurting others, increasingly paranoid towards family, intrusive with other patients here, difficult to redirect. Utox positive for cannabis. Plan: On invega sustenna 234 mg, next one is due on 10/11/2021. Will re-start depakote ER 500 mg QHS for mood stability and trilafon 4 mg TID for psychosis. Will re-start olanzapine 10 mg ODT BID PRN, as this has helped in the past for psychosis, agitation, and anxiety. Re-start ativan 1 mg BID PRN for agitation, anxiety, as an anti-manic agent.? Q15 min safety checks, CV Monitor response to medications. Monitor for safety in the milieu. Discharge on stabilization. Patient seen. Chart reviewed. Discussed with team. Obtain collateral contact info?as needed 10/05/2021: No changes to current plan I spent minutes with the patient and/or on the patient floor today, greater than?50% of which was spent counseling/coordinating care. Reason for contiued inpatient stay Substantial Risk for: inability to function and rapid decompensation
[2021-10-05] MEDS: OLANZapine ODT 10 MG TAB.RAPDIS TRANSLINGU (14:01)
[2021-10-05] MEDS: Divalproex Sodium ER 500 MG TAB.ER.24H PO (16:47)
[2021-10-05 20:00] VITALS: BP 129/68; PULSE 110; TEMP 35.7
[2021-10-06] MEDS: Nicotine Polacrilex 2 MG GUM BUCCAL (04:19)
[2021-10-06 07:25] LABS: Vitamin B12 523 pg/mL (200-900)
[2021-10-06] MEDS: Perphenazine 4 MG TABLET PO (08:44)
--- NOTE | 2021-10-06 17:16 | P.PNPSI_ITS ---
Subjective Subjective Date of Service: 10/06/21 Reason For Visit: SI Subjective Notes: Rios Warning and Conditional Voluntary Healthcare Proxy: No Guardianship: No Medical Problems Affecting Mental Status: No Interim History: I spoke with team, pt remains psychotic but he is less labile than on admission. Per pt, I feel like im doing better. He has some insight, says I really dont like the meds but i have to take them and that he does not like them because I feel like they're gonna make me stutter or stop my thinking process. Says Im feeling good, I feel free. He is labile, at times euphoric and other times crying. Says I could sleep better and I have a lot of energy but also says I get tired easily. Pt remains with psychotic thought process, asks if this is real life or if this is a video game. Later says I deserve to go to hell and starts crying. Medication Compliance: Yes Side effects from medications: No Attending Groups: Intermittent Review of Systems Acute medical concerns: No Medical Review of Systems: unchanged Mental Status Exam Mental Status Exam Narrative: Alert but not oriented to time or situation. In casual attire, unkempt, pacing halls. Poor eye contact, inattentive. No Tics or Tremors. No abnormal involuntary movements. Cooperative. Non-pressured speech, spontaneous with regular rate and rhythm, normal volume and prosody. No prolonged speech latency or dysarthria. Mood is good, affect is tearful, labile. Denies SI/SIB/HI upon inquiry. Denies A/VH. Endorses paranoid and grandiose delusional thought content. Thoughts are disorganized. No known cognitive or memory impairment. Insight/ Judgment poor. Diagnostics Vital Signs (24Hr): Vital Signs - 24 hr 10/05/21 20:00 Temperature 96.2 F L Pulse Rate 110 H Blood Pressure 129/68 BMI result Body Mass Index 25.0 Labs Results: 10/04/21 07:36 Labs: Laboratory Results - last 48 hr 10/04/21 07:36 Vitamin B12 523 Medications Medications Current Medications Acetaminophen (Acetaminophen 325 Mg Tablet) 650 mg PO Q6H PRN PRN Reason: Headache/Pain Mild Scale (1-3) Al Hydroxide/Mg Hydroxide (Magnesium Hydrox/Alum Hydrox 30 Ml Oral.Susp) 30 ml PO Q6H PRN PRN Reason: Heartburn/Nausea Divalproex Sodium (Divalproex Sodium Er 500 Mg Tab.Er.24h) 500 mg PO BEDTIME FANNIE Last Admin: 10/05/21 16:47 Dose: 500 mg Hydroxyzine HCl (Hydroxyzine Hcl 25 Mg Tablet) 25 mg PO Q6H PRN PRN Reason: Anxiety Last Admin: 10/05/21 16:49 Dose: 25 mg Lorazepam (Lorazepam 1 Mg Tablet) 1 mg PO BID PRN PRN Reason: anxiety Last Admin: 10/05/21 07:59 Dose: 1 mg Magnesium Hydroxide (Milk Of Magnesia 30 Ml Oral.Susp) 30 ml PO DAILY PRN PRN Reason: Constipation Nicotine Polacrilex (Nicotine Polacrilex 2 Mg Gum) 2 mg BUCCAL QID PRN PRN Reason: nicotine cravings Last Admin: 10/06/21 04:19 Dose: 2 mg Olanzapine (Olanzapine Odt 10 Mg Tab.Rapdis) 10 mg TRANSLINGU BID PRN PRN Reason: psychosis, agitation Last Admin: 10/05/21 14:01 Dose: 10 mg Perphenazine (Perphenazine 4 Mg Tablet) 4 mg PO BID FANNIE Last Admin: 10/06/21 08:44 Dose: 4 mg Trazodone HCl (Trazodone Hcl 50 Mg Tablet) 50 mg PO BEDTIME PRN PRN Reason: Insomnia Last Admin: 10/05/21 23:33 Dose: 50 mg Allergies Allergies Allergy/AdvReac Type Severity Reaction Status Date / Time haloperidol [From Haldol] AdvReac Intermediate EPS Verified 08/21/21 11:47 Assessment & Plan Assessment & Plan (1) Schizoaffective disorder, bipolar type: Status: Acute Code(s): F25.0 - Schizoaffective disorder, bipolar type Plan Adi is a 26 y.o. Male who carries a dx of schizoaffective DO, bipolar type. He presented to [facility] several times since his discharge from [facility] on 08/28/21. Pt received last Invega Sustenna 234mg IM on 09/21, it does not seem like this most effective medication for him. At this point, pt presents as labile, impulsive, intrusive with others, reporting CAH of hurting others, increasingly paranoid towards family, intrusive with other patients here, difficult to redirect. Utox positive for cannabis. Plan: On invega sustenna 234 mg, next one is due on 10/11/2021. Will re-start depakote ER 500 mg QHS for mood stability and trilafon 4 mg BID for psychosis. W ill re-start olanzapine 10 mg ODT BID PRN, as this has helped in the past for psychosis, agitation, and anxiety. Re-start ativan 1 mg BID PRN for agitation, anxiety, as an anti-manic agent.? 10/05/2021: No changes to current plan 10/06/2021: increase trilafon to 8 mg BID for psychosis as pt is tolerating this. Increase depakote ER to 1000 mg, as pt was on this dose during previous admission for mood lability with good effect, obtain VPA level. Again, pt is due to invega sustenna on 10/11/2021. Q15 min safety checks, CV Monitor response to medications. Monitor for safety in the milieu. Discharge on stabilization. Patient seen. Chart reviewed. Discussed with team. Obtain collateral contact info?as needed I spent minutes with the patient and/or on the patient floor today, greater than?50% of which was spent counseling/coordinating care. Patient educated on: diagnosis, medication risk/benefits and therapeutic st rategies Reason for contiued inpatient stay Substantial Risk for: inability to function, rapid decompensation and med/psych decompensation
[2021-10-06 18:00] VITALS: BP 127/80; PULSE 74; TEMP 36.7
[2021-10-06] MEDS: Divalproex Sodium ER 500 MG TAB.ER.24H 1000 MG PO (19:46)
[2021-10-06] MEDS: Perphenazine 8 MG TABLET PO (19:46)
[2021-10-07] MEDS: traZODone HCL 50 MG TABLET PO ×2 (03:21→21:24)
[2021-10-07] MEDS: Nicotine Polacrilex 2 MG GUM BUCCAL ×3 (03:21→18:29)
[2021-10-07 06:00] VITALS: BP 138/74; PULSE 97; RESP 18; TEMP 36.1; O2SAT 96
[2021-10-07] MEDS: LORazepam 1 MG TABLET PO ×2 (09:12→21:24)
[2021-10-07] MEDS: Perphenazine 8 MG TABLET PO ×2 (09:12→21:24)
--- NOTE | 2021-10-07 12:34 | P.PNPSI_ITS ---
Subjective Subjective Date of Service: 10/07/21 Reason For Visit: SI Interim History: pt manic, jumping up and down in hallway, intrusive with other patients getting into arguments about non-sensical things. Pt at first did not want to talk w/ advertising writer since he wanted to keep listening to music. Later on he was willing to talk and reports he has AH and needs to get the message out though does not elaborate the message. Patient says he wants to get back to his people which he says are the people of [employer] because he wants to help them, again does not elaborate. Does not really finish sentences. He denies any SI or HI. Mental Status Exam Mental Status Exam Narrative: Pt is alert and oriented; behavior is intermittently cooperative, hyperactive, intrusive; patient is not in distress; dressed in casual attire with unkempt hair but adequate hygiene; mood is described as good and affect labile; eye contact appropriate; Speech is a little pressured; normal volume and prosody; psychomotor agitation present; thought process can be goal directed but is also disorganized; Thought content is on various grandiose things; sometimes pertinent to relevant topics; denies any SI/HI. Patient endorses auditory hallucinations and is internally preoccupied. Patients insight and judgment are impaired Diagnostics Vital Signs (24Hr): Vital Signs - 24 hr 10/06/21 18:00 10/07/21 06:00 Temperature 98.0 F 96.9 F Pulse Rate 74 97 Respiratory Rate 18 Blood Pressure 127/80 138/74 Pulse Oximetry 96 Oxygen Delivery Method Room Air BMI result Body Mass Index 25.0 Labs Results: 10/04/21 07:36 Labs: Laboratory Results - last 48 hr 10/04/21 07:36 Vitamin B12 523 Medications Medications Current Medications Acetaminophen (Acetaminophen 325 Mg Tablet) 650 mg PO Q6H PRN PRN Reason: Headache/Pain Mild Scale (1-3) Al Hydroxide/Mg Hydroxide (Magnesium Hydrox/Alum Hydrox 30 Ml Oral.Susp) 30 ml PO Q6H PRN PRN Reason: Heartburn/Nausea Divalproex Sodium (Divalproex Sodium Er 500 Mg Tab.Er.24h) 1,000 mg PO BEDTIME FANNIE Last Admin: 10/06/21 19:46 Dose: 1,000 mg Divalproex Sodium (Divalproex Sodium Er 500 Mg Tab.Er.24h) 500 mg PO DAILY FANNIE Hydroxyzine HCl (Hydroxyzine Hcl 25 Mg Tablet) 25 mg PO Q6H PRN PRN Reason: Anxiety Last Admin: 10/05/21 16:49 Dose: 25 mg Lorazepam (Lorazepam 1 Mg Tablet) 1 mg PO BID PRN PRN Reason: anxiety Last Admin: 10/07/21 09:12 Dose: 1 mg Magnesium Hydroxide (Milk Of Magnesia 30 Ml Oral.Susp) 30 ml PO DAILY PRN PRN Reason: Constipation Nicotine Polacrilex (Nicotine Polacrilex 2 Mg Gum) 2 mg BUCCAL QID PRN PRN Reason: nicotine cravings Last Admin: 10/07/21 09:12 Dose: 2 mg Olanzapine (Olanzapine Odt 10 Mg Tab.Rapdis) 10 mg TRANSLINGU BID PRN PRN Reason: psychosis, agitation Last Admin: 10/05/21 14:01 Dose: 10 mg Perphenazine (Perphenazine 8 Mg Tablet) 8 mg PO BID FANNIE Last Admin: 10/07/21 09:12 Dose: 8 mg Trazodone HCl (Trazodone Hcl 50 Mg Tablet) 50 mg PO BEDTIME PRN PRN Reason: Insomnia Last Admin: 10/07/21 03:21 Dose: 50 mg Allergies Allergies Allergy/AdvReac Type Severity Reaction Status Date / Time haloperidol [From Haldol] AdvReac Intermediate EPS Verified 08/21/21 11:47 Assessment & Plan Assessment & Plan (1) Schizoaffective disorder, bipolar type: Status: Acute Code(s): F25.0 - Schizoaffective disorder, bipolar type Matthew Joshi is a 26 y.o. Male who carries a dx of schizoaffective DO, bipolar type. He [place] [facility] [place] since his discharge [place] [facility] [place]. Pt received last Invega Sustenna 234mg IM on 09/21, it does not seem like this most effective medication for him. At this point, pt presents as labile, impulsive, intrusive with others, reporting CAH of hurting others, increasingly paranoid towards family, intrusive with other patients here, difficult to redirect. Utox positive for cannabis. On admission, manic; he was restarted on Invega Sustenna and started on depakote since had been helpful before; pt was also started on Trilifon. Plan: Q15 min safety checks, CV Today ADDed depakote ER 500mg daily (for continued jazmine) Continue Depakote ER 1000mg qhs Will get labs Next Invega Sustenna 234mg due 10/11/21 (already Received Invega Sustenna 234mg) Pt was started on Trilifon 8mg TID on this admission continue Ativan 1mg BID prn continue Zyprexa prn Otherwise: Monitor response to medications. Monitor for safety in the milieu. Discharge on stabilization. Patient seen. Chart reviewed. Discussed with team. Obtain collateral contact info?as needed I spent minutes with the patient and/or on the patient floor today, greater than?50% of which was spent counseling/coordinating care. Patient educated on: diagnosis Informed Consent: does not understand and further education needed Reason for contiued inpatient stay Substantial Risk for: rapid decompensation
[2021-10-07] MEDS: Divalproex Sodium ER 500 MG TAB.ER.24H PO (12:40)
[2021-10-07 18:00] VITALS: BP 130/82; PULSE 91; RESP 18; TEMP 37.1
[2021-10-07] MEDS: OLANZapine ODT 10 MG TAB.RAPDIS TRANSLINGU (18:29)
[2021-10-07] MEDS: hydrOXYzine HCL 25 MG TABLET PO (18:29)
[2021-10-07] MEDS: Divalproex Sodium ER 500 MG TAB.ER.24H 1000 MG PO (21:25)
[2021-10-08] MEDS: Nicotine Polacrilex 2 MG GUM BUCCAL ×2 (05:48→11:35)
[2021-10-08 06:00] VITALS: BP 135/76; PULSE 93; RESP 16; TEMP 36; O2SAT 99
[2021-10-08] MEDS: Perphenazine 8 MG TABLET PO (08:46)
[2021-10-08] MEDS: Divalproex Sodium ER 500 MG TAB.ER.24H PO (08:46)
[2021-10-08] MEDS: OLANZapine ODT 10 MG TAB.RAPDIS TRANSLINGU (14:39)
[2021-10-08] MEDS: hydrOXYzine HCL 25 MG TABLET PO (14:39)
[2021-10-08] MEDS: Divalproex Sodium ER 500 MG TAB.ER.24H 1000 MG PO (15:41)
[2021-10-08] MEDS: OLANZapine ODT 10 MG TAB.RAPDIS 20 MG TRANSLINGU (15:42)
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
[2021-10-08 18:00] VITALS: BP 144/84; PULSE 110; RESP 20; TEMP 36.3; O2SAT 99
[2021-10-09] MEDS: traZODone HCL 50 MG TABLET PO (03:37)
[2021-10-09] MEDS: Nicotine Polacrilex 2 MG GUM BUCCAL ×3 (03:54→19:18)
[2021-10-09 06:00] VITALS: BP 125/83; PULSE 104; RESP 16; TEMP 36.1; O2SAT 95
[2021-10-09] MEDS: Divalproex Sodium ER 500 MG TAB.ER.24H PO (08:50)
[2021-10-09] MEDS: OLANZapine ODT 10 MG TAB.RAPDIS TRANSLINGU (09:47)
--- NOTE | 2021-10-09 10:21 | HO.PSYCHPN ---
Subjective Subjective Date of Service: 10/09/21 Reason For Visit: SI Interim History: pt under better behavioral control last night after depakote/zyprexa dose during overnight this morning, still manic, intrusive, and loud, but now on scheduled zyprexa, so far has been less intensively so and not as confrontational with others review of chart shows he was on Zyprexa 15mg BID last admission. Mental Status Exam Mental Status Exam Narrative: Pt is alert and oriented; behavior still disorganized, manic, intrusive but a little less so today; dressed in casual attire, wearing hat; adequate hygiene; mood is described as good and affect labile and can be expansive; eye contact appropriate; Speech is pressured, increased volume; psychomotor agitation present; thought process can be goal directed but is mostly disorganized; Thought content is on various grandiose, delusional things; sometimes pertinent to relevant topics; denies any SI/HI. Patient endorses auditory hallucinations and is internally preoccupied. Patients insight and judgment are impaired Diagnostics Vital Signs (24Hr): Vital Signs - 24 hr 10/08/21 18:00 10/09/21 06:00 Temperature 97.3 F 96.9 F Pulse Rate 110 H 104 H Respiratory Rate 20 16 Blood Pressure 144/84 H 125/83 Pulse Oximetry 99 95 Oxygen Delivery Method Room Air Room Air BMI result Body Mass Index 25.0 Labs Results: 10/04/21 07:36 Medications Medications Current Medications Acetaminophen (Acetaminophen 325 Mg Tablet) 650 mg PO Q6H PRN PRN Reason: Headache/Pain Mild Scale (1-3) Al Hydroxide/Mg Hydroxide (Magnesium Hydrox/Alum Hydrox 30 Ml Oral.Susp) 30 ml PO Q6H PRN PRN Reason: Heartburn/Nausea Divalproex Sodium (Divalproex Sodium Er 500 Mg Tab.Er.24h) 1,000 mg PO BEDTIME FANNIE Last Admin: 10/08/21 15:41 Dose: 1,000 mg Divalproex Sodium (Divalproex Sodium Er 500 Mg Tab.Er.24h) 500 mg PO DAILY FANNIE Last Admin: 10/09/21 08:50 Dose: 500 mg Hydroxyzine HCl (Hydroxyzine Hcl 25 Mg Tablet) 25 mg PO Q6H PRN PRN Reason: Anxiety Last Admin: 10/08/21 14:39 Dose: 25 mg Lorazepam (Lorazepam 1 Mg Tablet) 1 mg PO BID PRN PRN Reason: anxiety Last Admin: 10/07/21 21:24 Dose: 1 mg Magnesium Hydroxide (Milk Of Magnesia 30 Ml Oral.Susp) 30 ml PO DAILY PRN PRN Reason: Constipation Nicotine Polacrilex (Nicotine Polacrilex 2 Mg Gum) 2 mg BUCCAL QID PRN PRN Reason: nicotine cravings Last Admin: 10/09/21 09:47 Dose: 2 mg Olanzapine (Olanzapine Odt 10 Mg Tab.Rapdis) 10 mg TRANSLINGU BID PRN PRN Reason: psychosis, agitation Last Admin: 10/08/21 14:39 Dose: 10 mg Olanzapine (Olanzapine Odt 10 Mg Tab.Rapdis) 10 mg TRANSLINGU BID FANNIE Last Admin: 10/09/21 09:47 Dose: 10 mg Trazodone HCl (Trazodone Hcl 50 Mg Tablet) 50 mg PO BEDTIME PRN PRN Reason: Insomnia Last Admin: 10/09/21 03:37 Dose: 50 mg Allergies Allergies Allergy/AdvReac Type Severity Reaction Status Date / Time haloperidol [From Haldol] AdvReac Intermediate EPS Verified 08/21/21 11:47 Assessment & Plan Assessment & Plan (1) Schizoaffective disorder, bipolar type: Status: Acute Code(s): F25.0 - Schizoaffective disorder, bipolar type Matthew Joshi is a 26 y.o. Male who carries a dx of schizoaffective DO, bipolar type. He presented to [facility] ED several times since his discharge from [facility] M3 on 08/28/21. Pt received last Invega Sustenna 234mg IM on 09/21, it does not seem like this most effective medication for him. At this point, pt presents as labile, impulsive, intrusive with others, reporting CAH of hurting others, increasingly paranoid towards family, intrusive with other patients here, difficult to redirect. Utox positive for cannabis. On admission, manic; he was restarted on Invega Sustenna and started on depakote since had been helpful before; pt was also started on Trilifon. Patient remains manic, intrusive, instigating fights with others based on delusional, paranoid thinking. Discontinue Trilafon and started Zyprexa 10/09 still manic, but a little less confrontational and intense now on scheduled zyprexa; review of previous admission shows zyprexa 15mg BID so will increase. Plan: Q15 min safety checks, CV INCRease to Zyprexa/Zydis 15 mg b.i.d. Continue depakote ER 500mg daily (for continued jazmine) Continue Depakote ER 1000mg qhs Will get labs Invega Sustenna 156mg due on 10/09 (2 days early; already Received Invega Sustenna 234mg) DC Trilifon continue Ativan 1mg BID prn continue Zyprexa prn Otherwise: Monitor response to medications. Monitor for safety in the milieu. Discharge on stabilization. Patient seen. Chart reviewed. Discussed with team. Obtain collateral contact info?as needed I spent minutes with the patient and/or on the patient floor today, greater than?50% of which was spent counseling/coordinating care. Informed Consent: does not understand Reason for contiued inpatient stay Substantial Risk for: inability to function and rapid decompensation
[2021-10-09] MEDS: Paliperidone Palmitate 156 MG/ML SYRINGE IM (11:11)
[2021-10-09] MEDS: diphenhydrAMINE HCL 25 MG TABLET 50 MG PO (12:32)
[2021-10-09] MEDS: chlorproMAZINE HCl 100 MG TABLET 200 MG PO (12:32)
--- NOTE | 2021-10-09 15:11 | PC.NURSE ---
Pt with escalating behaviors, yelling outbursts, threatening staff and peers. Attempted to redirect pt many times, pt continued with escalating behaviors. Pt given med restraint of Benadryl 50 mg PO; Thorazine HCL 200 mg PO. Pt refused vital signs afterwards.
[2021-10-09 15:54] VITALS: RESP 16
[2021-10-09] MEDS: OLANZapine ODT 10 MG TAB.RAPDIS 20 MG TRANSLINGU (19:18)
[2021-10-09] MEDS: Divalproex Sodium ER 500 MG TAB.ER.24H 1000 MG PO (19:18)
[2021-10-10] MEDS: hydrOXYzine HCL 25 MG TABLET PO (01:41)
[2021-10-10] MEDS: traZODone HCL 50 MG TABLET PO (01:41)
[2021-10-10] MEDS: Nicotine Polacrilex 2 MG GUM BUCCAL ×2 (01:46→11:08)
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
[2021-10-10 06:00] VITALS: BP 126/79; PULSE 98; RESP 18; TEMP 36.5; O2SAT 99
[2021-10-10] MEDS: Divalproex Sodium ER 500 MG TAB.ER.24H PO (07:54)
[2021-10-10] MEDS: OLANZapine ODT 10 MG TAB.RAPDIS 20 MG TRANSLINGU ×2 (07:55→20:33)
[2021-10-10] MEDS: chlorproMAZINE HCl 100 MG TABLET 200 MG PO ×2 (11:08→20:33)
--- NOTE | 2021-10-10 14:57 | HO.PSYCHPN ---
Subjective Subjective Date of Service: 10/10/21 Reason For Visit: SI Interim History: Patient remains manic, intermittently out of control; required IM restraint at about 02:00 this morning. Later on was jumping up and down and loud in the hallway. Patient polite with report writer today and no longer seems angry however patient Remains labile and unpredictable. He then started crying and asked for p.r.n. to help him calm down. Patient received Thorazine and was able to sleep. Mental Status Exam Mental Status Exam Narrative: Pt is alert and oriented; behavior still disorganized, manic, intrusive; dressed in casual attire, wearing hat; adequate hygiene; mood is described as Okay and affect labile and can be expansive; eye contact appropriate; Speech is pressured, increased volume; psychomotor agitation present; thought process can be goal directed but is mostly disorganized; Thought content is on various grandiose, delusional things sometimes on paranoid ideations; sometimes pertinent to relevant topics; denies any SI/HI. Patient endorses auditory hallucinations and is internally preoccupied. Patients insight and judgment are impaired Diagnostics Vital Signs (24Hr): Vital Signs - 24 hr 10/09/21 15:54 10/10/21 06:00 Temperature 97.7 F Pulse Rate 98 Respiratory Rate 16 18 Blood Pressure 126/79 Pulse Oximetry 99 BMI result Body Mass Index 25.0 Labs Results: 10/04/21 07:36 Medications Medications Current Medications Acetaminophen (Acetaminophen 325 Mg Tablet) 650 mg PO Q6H PRN PRN Reason: Headache/Pain Mild Scale (1-3) Al Hydroxide/Mg Hydroxide (Magnesium Hydrox/Alum Hydrox 30 Ml Oral.Susp) 30 ml PO Q6H PRN PRN Reason: Heartburn/Nausea Chlorpromazine HCl (Chlorpromazine Hcl 100 Mg Tablet) 200 mg PO TID PRN PRN Reason: SEVEre agitation Last Admin: 10/10/21 11:08 Dose: 200 mg Chlorpromazine HCl (Chlorpromazine Hcl 100 Mg Tablet) 100 mg PO TID PRN PRN Reason: MOderate agitation Chlorpromazine HCl (Chlorpromazine Hcl 100 Mg Tablet) 200 mg PO BEDTIME FANNIE Clonazepam (Clonazepam 1 Mg Tablet) 1 mg PO BID@0900,1300 FANNIE Last Admin: 10/10/21 14:05 Dose: Not Given Divalproex Sodium (Divalproex Sodium Er 500 Mg Tab.Er.24h) 1,000 mg PO BEDTIME FANNIE Stop: 10/10/21 21:00 Last Admin: 10/09/21 19:18 Dose: 1,000 mg Divalproex Sodium (Divalproex Sodium Er 500 Mg Tab.Er.24h) 1,500 mg PO BEDTIME FANNIE (starting on 10/11/21) Hydroxyzine HCl (Hydroxyzine Hcl 25 Mg Tablet) 25 mg PO Q6H PRN PRN Reason: Anxiety Last Admin: 10/10/21 01:41 Dose: 25 mg Lorazepam (Lorazepam 1 Mg Tablet) 1 mg PO BID PRN PRN Reason: anxiety Last Admin: 10/07/21 21:24 Dose: 1 mg Magnesium Hydroxide (Milk Of Magnesia 30 Ml Oral.Susp) 30 ml PO DAILY PRN PRN Reason: Constipation Nicotine Polacrilex (Nicotine Polacrilex 2 Mg Gum) 2 mg BUCCAL QID PRN PRN Reason: nicotine cravings Last Admin: 10/10/21 11:08 Dose: 2 mg Olanzapine (Olanzapine Odt 10 Mg Tab.Rapdis) 20 mg TRANSLINGU BID FANNIE Last Admin: 10/10/21 07:55 Dose: 20 mg Trazodone HCl (Trazodone Hcl 50 Mg Tablet) 50 mg PO BEDTIME PRN PRN Reason: Insomnia Last Admin: 10/10/21 01:41 Dose: 50 mg Allergies Allergies Allergy/AdvReac Type Severity Reaction Status Date / Time haloperidol [From Haldol] AdvReac Intermediate EPS Verified 08/21/21 11:47 Assessment & Plan Assessment & Plan (1) Schizoaffective disorder, bipolar type: Status: Acute Code(s): F25.0 - Schizoaffective disorder, bipolar type Matthew Joshi is a 26 y.o. Male who carries a dx of schizoaffective DO, bipolar type. He presented to [facility] several times since his discharge from [facility] M3 on 08/28/21. Pt received last Invega Sustenna 234mg IM on 09/21, it does not seem like this most effective medication for him. At this point, pt presents as labile, impulsive, intrusive with others, reporting CAH of hurting others, increasingly paranoid towards family, intrusive with other patients here, difficult to redirect. Utox positive for cannabis. On admission, manic; he was restarted on Invega Sustenna and started on depakote since had been helpful before; pt was also started on Trilifon. Patient remains manic, intrusive, instigating fights with others based on delusional, paranoid thinking. Discontinue Trilafon and started Zyprexa 10/09 still manic, but a little less confrontational and intense now on scheduled zyprexa; review of previous admission shows zyprexa 15mg BID so will increase. 10/10 Remains manic, intrusive and intermittently out of control and again required chemical restraint at 02:00 this morning. Today yelling, intrusive but asked for and took p.r.n. saying he wants help Plan: Q15 min safety checks, CV Schedule Thorazine 200 mg q.h.s.; patient is not sleeping Much and there is hope that if he can Sleep, will hopefully help break jazmine continue Zyprexa/Zydis 20mg b.i.d. (while this is higher than normal dose, patient is intrusive, starting fights and difficult to redirect and seems to require higher doses for milieu and patient safety) cHANGEd to depakote ER 1500mg QHs since not sleeping; pt refused labs this morning so not ready to adjust dose re-ordered labs Invega Sustenna 156mg due on 10/09 (2 days early; already Received Invega Sustenna 234mg) DC Trilifon Start clonazepam 1 mg b.i.d. 09:00 and 1300 continue Zyprexa prn Otherwise: Monitor response to medications. Monitor for safety in the milieu. Discharge on stabilization. Patient seen. Chart reviewed. Discussed with team. Obtain collateral contact info?as needed I spent minutes with the patient and/or on the patient floor today, greater than?50% of which was spent counseling/coordinating care. Reason for contiued inpatient stay Substantial Risk for: harm to others, inability to function and rapid decompensation
[2021-10-10 16:07] VITALS: RESP 16
[2021-10-10] MEDS: Divalproex Sodium ER 500 MG TAB.ER.24H 1000 MG PO (20:34)
--- NOTE | 2021-10-10 21:03 | PC.NURSE ---
Pt signed 3-day notice on 10/10/21, 3-day up on 10/15/21
[2021-10-11] MEDS: hydrOXYzine HCL 25 MG TABLET PO ×2 (03:47→21:17)
[2021-10-11] MEDS: chlorproMAZINE HCl 100 MG TABLET 200 MG PO ×3 (03:47→21:17)
[2021-10-11] MEDS: traZODone HCL 50 MG TABLET PO ×3 (03:49→23:45)
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
[2021-10-11 06:33] VITALS: BP 133/70; PULSE 100; TEMP 36.2; O2SAT 98
[2021-10-11] MEDS: clonazePAM 1 MG TABLET PO ×2 (08:56→14:40)
[2021-10-11] MEDS: OLANZapine ODT 10 MG TAB.RAPDIS 20 MG TRANSLINGU ×2 (08:57→21:17)
[2021-10-11] MEDS: chlorproMAZINE HCl 100 MG TABLET PO (08:57)
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
[2021-10-11 11:44] LABS: Alanine Aminotransferase 21 U/L (0-40); Albumin Level 3.6 g/dL (3.5-5.0); Alkaline Phosphatase 72 U/L (39-117); Aspartate Amino Transferase 15 U/L (5-37); Bilirubin Direct < 0.2 mg/dL (0.0-0.5); Bilirubin Total 0.4 mg/dL (0.0-1.0); Total Protein 6.8 g/dL (6.5-8.0)
[2021-10-11 12:39] LABS: Ammonia 38 umol/L (13-55)
[2021-10-11] MEDS: Nicotine Polacrilex 2 MG GUM BUCCAL (14:42)
[2021-10-11] MEDS: Nicotine 21 MG PATCH.TD24 TRANSDERMA (17:17)
[2021-10-11] MEDS: Divalproex Sodium ER 500 MG TAB.ER.24H 2000 MG PO (21:17)
[2021-10-12 05:42] VITALS: BP 129/80; PULSE 104; RESP 16; TEMP 35.9; O2SAT 98
[2021-10-12] MEDS: Nicotine 21 MG PATCH.TD24 TRANSDERMA (08:43)
[2021-10-12] MEDS: chlorproMAZINE HCl 100 MG TABLET PO ×2 (08:43→18:30)
[2021-10-12] MEDS: OLANZapine ODT 10 MG TAB.RAPDIS 20 MG TRANSLINGU ×2 (08:43→19:36)
[2021-10-12] MEDS: clonazePAM 1 MG TABLET PO ×2 (08:43→14:05)
--- NOTE | 2021-10-12 13:16 | HO.PSYCHPN ---
Subjective Subjective Date of Service: 10/12/21 Reason For Visit: SI Interim History: Slept better overnight and 1st night without getting disruptive and the pool attendant hours. Patient also not loud on the unit and though irritable, seems able to turn away from frustrating interactions. Patient says he wants to discharge and wanted to make sure his 3 day notice was recorded. He also agrees to have his mother come in Wednesday tomorrow to discuss case. Patient did not want to talk about diagnosis or medications or anything regarding staying on the unit or treatment. Mental Status Exam Mental Status Exam Narrative: Pt is alert and oriented; behavior still disorganized, but less manic and not so intrusive; dressed in casual attire, wearing hat; adequate hygiene; mood is described as Okay and affect labile and can be expansive; eye contact appropriate; Speech is less pressured, normal volume; intermittent psychomotor agitation present; thought process can be goal directed; also circumstantial/tangential. Thought content is on various discharge; still with grandiose, delusional thoughts but expressed much less; sometimes on paranoid ideations; sometimes pertinent to relevant topics; denies any SI/HI. not sure if auditory hallucinations present; still seems somewhat internally preoccupied. Patients insight and judgment are impaired Diagnostics Vital Signs (24Hr): Vital Signs - 24 hr 10/12/21 05:42 Temperature 96.6 F L Pulse Rate 104 H Respiratory Rate 16 Blood Pressure 129/80 Pulse Oximetry 98 Oxygen Delivery Method Room Air BMI result Body Mass Index 25.0 Labs Results: 10/04/21 07:36 Labs: Laboratory Results - last 48 hr 10/11/21 10/11/21 11:13 11:13 Total Bilirubin 0.4 Direct Bilirubin < 0.2 AST 15 ALT 21 Alkaline Phosphatase 72 Ammonia 38 Total Protein 6.8 Albumin 3.6 Valproic Acid 42.0 L Medications Medications Current Medications Acetaminophen (Acetaminophen 325 Mg Tablet) 650 mg PO Q6H PRN PRN Reason: Headache/Pain Mild Scale (1-3) Al Hydroxide/Mg Hydroxide (Magnesium Hydrox/Alum Hydrox 30 Ml Oral.Susp) 30 ml PO Q6H PRN PRN Reason: Heartburn/Nausea Chlorpromazine HCl (Chlorpromazine Hcl 100 Mg Tablet) 200 mg PO TID PRN PRN Reason: SEVEre agitation Last Admin: 10/11/21 14:40 Dose: 200 mg Chlorpromazine HCl (Chlorpromazine Hcl 100 Mg Tablet) 100 mg PO TID PRN PRN Reason: MOderate agitation Last Admin: 10/12/21 08:43 Dose: 100 mg Chlorpromazine HCl (Chlorpromazine Hcl 100 Mg Tablet) 200 mg PO BEDTIME ON LICENSE OF [facility] Last Admin: 10/11/21 21:17 Dose: 200 mg Clonazepam (Clonazepam 1 Mg Tablet) 1 mg PO BID@0900,1300 ON LICENSE OF [facility] Last Admin: 10/12/21 08:43 Dose: 1 mg Divalproex Sodium (Divalproex Sodium Er 500 Mg Tab.Er.24h) 2,000 mg PO BEDTIME ON LICENSE OF [facility] Last Admin: 10/11/21 21:17 Dose: 2,000 mg Hydroxyzine HCl (Hydroxyzine Hcl 25 Mg Tablet) 25 mg PO Q6H PRN PRN Reason: Anxiety Last Admin: 10/11/21 21:17 Dose: 25 mg Magnesium Hydroxide (Milk Of Magnesia 30 Ml Oral.Susp) 30 ml PO DAILY PRN PRN Reason: Constipation Nicotine (Nicotine 21 Mg Patch.Td24) 21 mg TRANSDERMA DAILY ON LICENSE OF [facility] Last Admin: 10/12/21 08:43 Dose: 21 mg Nicotine Polacrilex (Nicotine Polacrilex 2 Mg Gum) 2 mg BUCCAL QID PRN PRN Reason: nicotine cravings Last Admin: 10/11/21 14:42 Dose: 2 mg Olanzapine (Olanzapine Odt 10 Mg Tab.Rapdis) 20 mg TRANSLINGU BID ON LICENSE OF [facility] Last Admin: 10/12/21 08:43 Dose: 20 mg Trazodone HCl (Trazodone Hcl 50 Mg Tablet) 50 mg PO BEDTIME PRN PRN Reason: Insomnia Last Admin: 10/11/21 23:45 Dose: 50 mg Allergies Allergies Allergy/AdvReac Type Severity Reaction Status Date / Time haloperidol [From Haldol] AdvReac Intermediate EPS Verified 08/21/21 11:47 Assessment & Plan Assessment & Plan (1) Schizoaffective disorder, bipolar type: Status: Acute Code(s): F25.0 - Schizoaffective disorder, bipolar type Plan Adi is a 26 y.o. Male who carries a dx of schizoaffective DO, bipolar type. He [place] [facility] [place] since his discharge from [facility] on 08/28/21. Pt received last Invega Sustenna 234mg IM on 09/21, it does not seem like this most effective medication for him. At this point, pt presents as labile, impulsive, intrusive with others, reporting CAH of hurting others, increasingly paranoid towards family, intrusive with other patients here, difficult to redirect. Utox positive for cannabis. On admission, manic; he was restarted on Invega Sustenna and started on depakote since had been helpful before; pt was also started on Trilifon. Patient remains manic, intrusive, instigating fights with others based on delusional, paranoid thinking. Discontinue Trilafon and started Zyprexa 10/09 still manic, but a little less confrontational and intense now on scheduled zyprexa; review of previous admission shows zyprexa 15mg BID so will increase. 10/10 Remains manic, intrusive and intermittently out of control and again required chemical restraint at 02:00 this morning. Today yelling, intrusive but asked for and took p.r.n. saying he wants help 10/12 patient less manic and less intrusive. No longer loud on the unit; slept better last night than before and no overnight disruptions. Still very little insight and wants to discharge but is taking his medications. Irritable but redirectable and mostly keeping to himself. Hopefully mother will come in on Wednesday Plan: Q15 min safety checks, 3 day notice Continue Thorazine 200 mg q.h.s.; patient is not sleeping Much and there is hope that if he can Sleep, will hopefully help break jazmine; plan to taper off and DC hoping for monotherapy continue Zyprexa/Zydis 20mg b.i.d. (while this is higher than normal dose, patient is intrusive, starting fights and difficult to redirect and seems to require higher doses for milieu and patient safety); hope to taper off and DC Continue depakote ER 2000mg QHs (1500 mg please patient at subtherapeutic dose 42.0 mcg/mL) re-ordered labs Invega Sustenna 156mg received on 10/07 DC Trilifon Continue clonazepam 1 mg b.i.d. 09:00 and 1300; plan will be to wean off and DC prior to discharge but it seems to have been helping Otherwise: Monitor response to medications. Monitor for safety in the milieu. Discharge on stabilization. Patient seen. Chart reviewed. Discussed with team. Obtain collateral contact info?as needed I spent minutes with the patient and/or on the patient floor today, greater than?50% of which was spent counseling/coordinating care. Patient educated on: diagnosis and therapeutic strategies Informed Consent: does not understand and further education needed Reason for contiued inpatient stay Substantial Risk for: rapid decompensation
[2021-10-12 15:51] VITALS: BP 134/82; PULSE 129
[2021-10-12] MEDS: Nicotine Polacrilex 2 MG GUM BUCCAL (18:34)
[2021-10-12] MEDS: chlorproMAZINE HCl 100 MG TABLET 200 MG PO (19:36)
[2021-10-12] MEDS: Divalproex Sodium ER 500 MG TAB.ER.24H 2000 MG PO (19:36)
[2021-10-13] MEDS: chlorproMAZINE HCl 100 MG TABLET PO (01:14)
[2021-10-13] MEDS: traZODone HCL 50 MG TABLET PO ×2 (01:14→23:15)
[2021-10-13] MEDS: Nicotine Polacrilex 2 MG GUM BUCCAL ×2 (01:15→21:34)
[2021-10-13 06:00] VITALS: BP 131/81; PULSE 104; RESP 19; TEMP 36.3; O2SAT 97
[2021-10-13] MEDS: Nicotine 21 MG PATCH.TD24 TRANSDERMA (08:09)
[2021-10-13] MEDS: clonazePAM 1 MG TABLET PO ×2 (08:10→13:23)
[2021-10-13] MEDS: OLANZapine ODT 10 MG TAB.RAPDIS 20 MG TRANSLINGU ×2 (08:10→21:27)
[2021-10-13 11:44] LABS: COVID-19 Test Negative (Negative)
--- NOTE | 2021-10-13 15:55 | P.PNPSI_ITS ---
Subjective Subjective Date of Service: 10/13/21 Reason For Visit: SI Subjective Notes: 3 Day Interim History: Team meeting today with social Work, patient and his mother (in official court interpreter). Patient was initially a little irritable with his mother and disagreed with some of her assessment of his past behaviors; however he also willingly gave her credit and agreed that he has spoken to her rudely in the past and struggled to stay sober with which he fully agreed interrupt his mood stability. He also shared that he loves his mother knows his mother loves him, and despite some past allusions to trauma history as a child he expressed that he overall feels supported by his mother. Patient says that he still wants discharge. He is ambivalent about whether he should stay at his house or his mother's house but says he will likely stay with her. He agreed that she is allowed to make rules regarding what goes on her home. Patient said he will continue to take the medications as prescribed. Executive Wellness Programs Director also discussed how several these medications can very likely be tapered off and discontinued but that he needs to work closely with his outpatient provider, with which patient also agreed. Patient and typewriter operator automatic discussed his struggle with substance abuse and how it completely derails his stability and ends him back up in hospital. Patient said that he is clear on this and is very adamant about remaining sober. Also discussed patient's recent history of manic behaviors on the unit. Patient shared about his memory of the past couple weeks is fuzzy; he apologized sincerely for his behaviors and reiterated he did not know he was acting this way. Patient expressed insight into his need to continue with medications in order to remain more clear minded. Despite this insight, patient does remain with grandiose and delusional thought and he expressed some of them during this meeting; however he declines to remain on the unit further for neha viramontes and reiterates he will carefully attend follow-up. Refuses a VNA Executive Wellness Programs Director called and talked with Dr. Satya Joe, patient's outpatient psychiatrist and discussed patient's current medication regimen and overall plan for tapering patient off several of his current medications; Dr. Joe agreed with plan. Medication Compliance: Yes Side effects from medications: No Mental Status Exam Mental Status Exam Narrative: Pt is alert and oriented; behavior is overall much more organized and calm; not manic or hyperverbal and not intrusive, but polite and self-contained; dressed in casual attire, wearing hat; adequate hygiene; mood is described as Okay and affect congruent, more calm; eye contact appropriate; Speech is normal rate, volume and prosody; no longer pressured; no psychomotor agitation present; thought process is mostly goal directed and can remain so when needs to be; can also be intermittently circumstantial. Thought content is on discharge and mostly pertinent to relevant topics; however, still with grandiose, delusional thoughts, though expressed much less; sometimes on paranoid ideations; denies any SI/HI. Intermittent AH; still intermittently internally preoccupied. Patients insight and judgment are impaired but improved and adequate. Diagnostics Vital Signs (24Hr): Vital Signs - 24 hr 10/13/21 06:00 Temperature 97.4 F Pulse Rate 104 H Respiratory Rate 19 Blood Pressure 131/81 Pulse Oximetry 97 Oxygen Delivery Method Room Air BMI result Body Mass Index 25.0 Labs Results: 10/04/21 07:36 Labs: Laboratory Results - last 48 hr 10/13/21 11:11 COVID-19 ([facility]) Negative COVID-19 Clin Com See Note Medications Medications Current Medications Acetaminophen (Acetaminophen 325 Mg Tablet) 650 mg PO Q6H PRN PRN Reason: Headache/Pain Mild Scale (1-3) Al Hydroxide/Mg Hydroxide (Magnesium Hydrox/Alum Hydrox 30 Ml Oral.Susp) 30 ml PO Q6H PRN PRN Reason: Heartburn/Nausea Chlorpromazine HCl (Chlorpromazine Hcl 100 Mg Tablet) 200 mg PO TID PRN PRN Reason: SEVEre agitation Last Admin: 10/11/21 14:40 Dose: 200 mg Chlorpromazine HCl (Chlorpromazine Hcl 100 Mg Tablet) 100 mg PO TID PRN PRN Reason: MOderate agitation Last Admin: 10/13/21 01:14 Dose: 100 mg Chlorpromazine HCl (Chlorpromazine Hcl 100 Mg Tablet) 200 mg PO BEDTIME [facility] Last Admin: 10/12/21 19:36 Dose: 200 mg Clonazepam (Clonazepam 1 Mg Tablet) 1 mg PO BID@0900,1300 [facility] Last Admin: 10/13/21 13:23 Dose: 1 mg Divalproex Sodium (Divalproex Sodium Er 500 Mg Tab.Er.24h) 2,000 mg PO BEDTIME [facility] Last Admin: 10/12/21 19:36 Dose: 2,000 mg Hydroxyzine HCl (Hydroxyzine Hcl 25 Mg Tablet) 25 mg PO Q6H PRN PRN Reason: Anxiety Last Admin: 10/11/21 21:17 Dose: 25 mg Magnesium Hydroxide (Milk Of Magnesia 30 Ml Oral.Susp) 30 ml PO DAILY PRN PRN Reason: Constipation Nicotine (Nicotine 21 Mg Patch.Td24) 21 mg TRANSDERMA DAILY [facility] Last Admin: 10/13/21 08:09 Dose: 21 mg Nicotine Polacrilex (Nicotine Polacrilex 2 Mg Gum) 2 mg BUCCAL QID PRN PRN Reason: nicotine cravings Last Admin: 10/13/21 01:15 Dose: 2 mg Olanzapine (Olanzapine Odt 10 Mg Tab.Rapdis) 20 mg TRANSLINGU BID [facility] Last Admin: 10/13/21 08:10 Dose: 20 mg Trazodone HCl (Trazodone Hcl 50 Mg Tablet) 50 mg PO BEDTIME PRN PRN Reason: Insomnia Last Admin: 10/13/21 01:14 Dose: 50 mg Allergies Allergies Allergy/AdvReac Type Severity Reaction Status Date / Time haloperidol [From Haldol] AdvReac Intermediate EPS Verified 08/21/21 11:47 Assessment & Plan Assessment & Plan (1) Schizoaffective disorder, bipolar type: Status: Acute Code(s): F25.0 - Schizoaffective disorder, bipolar type Plan Adi is a 26 y.o. Male who carries a dx of schizoaffective DO, bipolar type. He presented to [facility] several times since his discharge from [facility] on 08/28/21. Pt received last Invega Sustenna 234mg IM on 09/21, it does not seem like this most effective medication for him. At this point, pt presents as labile, impulsive, intrusive with others, reporting CAH of hurting others, increasingly paranoid towards family, intrusive with other patients here, difficult to redirect. Utox positive for cannabis. On admission, manic; he was restarted on Invega Sustenna and started on depakote since had been helpful before; pt was also started on Trilifon. Patient remains manic, intrusive, instigating fights with others based on del usional, paranoid thinking. Discontinue Trilafon and started Zyprexa 10/09 still manic, but a little less confrontational and intense now on scheduled zyprexa; review of previous admission shows zyprexa 15mg BID so will increase. 10/10 Remains manic, intrusive and intermittently out of control and again required chemical restraint at 02:00 this morning. Today yelling, intrusive but asked for and took p.r.n. saying he wants help 10/12 patient less manic and less intrusive. No longer loud on the unit; slept better last night than before and no overnight disruptions. Still very little insight and wants to discharge but is taking his medications. Irritable but redirectable and mostly keeping to himself. Hopefully mother will come in on Friday 10/13 family meeting with mother today. Patient able to be calm and have a goal oriented discussion. While he continues to have and intermittently express delusional, grandiose thinking, he is mostly able to contain these expressions while discussing other topics on which he is able to remained focused. Patient is also no longer intrusive and is demonstrating good behavioral and impulse control and remained overall appropriate with both peers and staff on the unit. Patient demonstrates insight and judgment saying that he knows he needs me dications to be stable; also apologized for his past inappropriate behaviors over the past couple weeks. He says he will continue taking his medications and understands and agrees to work with his outpatient provider to taper off some of them. Patient's mother agrees that he is much better than on admission; her concern is that once he leaves the hospital he often stops taking medications/returns to substance abuse and again decompensates. Patient agrees that this has been his pattern in the past but says that he is committed to continuing medications and staying sober. Patient denies any SI or HI. Patient's 3 day notice is coming doing he declines to stay on the unit any further. Given patient's psychiatric illness, history of poor outpatient follow-up and struggles with substance abuse, he remains vulnerable to relapse/decompensation at some point and will likely need admission to a psychiatric hospital for stability at some point in the future. However, patient expresses a clear understanding of both his need for medication and the risks of not taking medications and engage in substance abuse. Patient maintains his own apartment in the community and has community support already established. Patient is not in imminent risk of harm to self or others does not rise to the level of involuntary commitment. Patient's request for discharge will be honored. Plan: Q15 min safety checks, 3 day notice Continue Thorazine 200 mg q.h.s.; patient is not sleeping Much and there is hope that if he can Sleep, will hopefully help break jazmine; plan to taper off and DC hoping for monotherapy continue Zyprexa/Zydis 20mg b.i.d. (while this is higher than normal dose, patient is intrusive, starting fights and difficult to redirect and seems to require higher doses for milieu and patient safety); hope to taper off and DC Continue depakote ER 2000mg QHs (1500 mg please patient at subtherapeutic dose 42.0 mcg/mL) re-ordered labs Invega Sustenna 156mg received on 10/07 DC Trilifon Continue clonazepam 1 mg b.i.d. 09:00 and 1300; plan will be to wean off and DC prior to discharge but it seems to have been helping Otherwise: Monitor response to medications. Monitor for safety in the milieu. Discharge on stabilization. Patient seen. Chart reviewed. Discussed with team. Obtain collateral contact info?as needed I spent minutes with the patient and/or on the patient floor today, greater than?50% of which was spent counseling/coordinating care. Patient educated on: diagnosis, medication risk/benefits, substance abuse and therapeutic strategies Informed Consent: understands Reason for contiued inpatient stay Substantial Risk for: stable for discharge
[2021-10-13 21:25] VITALS: BP 141/77; PULSE 121; TEMP 36.3; O2SAT 97
[2021-10-13] MEDS: Divalproex Sodium ER 500 MG TAB.ER.24H 2000 MG PO (21:27)
[2021-10-13] MEDS: chlorproMAZINE HCl 100 MG TABLET 200 MG PO (21:27)
[2021-10-13] MEDS: Melatonin 3 MG TABLET 6 MG PO (23:15)
[2021-10-14] MEDS: Nicotine Polacrilex 2 MG GUM BUCCAL ×2 (04:48→23:59)
[2021-10-14 05:24] VITALS: BP 131/84; PULSE 118; RESP 18; TEMP 36.2; O2SAT 96
[2021-10-14] MEDS: Nicotine 21 MG PATCH.TD24 TRANSDERMA (07:57)
[2021-10-14 08:29] VITALS: BP 131/84; PULSE 118; RESP 18; TEMP 36.2; O2SAT 96
[2021-10-14] MEDS: OLANZapine ODT 10 MG TAB.RAPDIS 20 MG TRANSLINGU ×2 (09:29→20:20)
[2021-10-14] MEDS: clonazePAM 1 MG TABLET PO (09:29)
[2021-10-14] MEDS: clonazePAM 0.5 MG TABLET PO (14:43)
[2021-10-14 16:39] LABS: Alanine Aminotransferase 28 U/L (0-40); Alkaline Phosphatase 96 U/L (39-117); Aspartate Amino Transferase 20 U/L (5-37); Bilirubin Direct < 0.2 mg/dL (0.0-0.5); Bilirubin Total < 0.2 mg/dL (0.0-1.0); Total Protein 8.1 g/dL (6.5-8.0)
[2021-10-14 16:51] LABS: Valproate 45.7 mcg/mL (50.0-100.0)
[2021-10-14 17:05] LABS: Ammonia 40 umol/L (13-55)
[2021-10-14] MEDS: Divalproex Sodium ER 500 MG TAB.ER.24H 2000 MG PO (20:20)
[2021-10-14] MEDS: chlorproMAZINE HCl 100 MG TABLET 200 MG PO (20:21)
[2021-10-14] MEDS: traZODone HCL 50 MG TABLET PO (23:57)
[2021-10-15 06:33] VITALS: BP 139/85; PULSE 67; RESP 16; O2SAT 98
[2021-10-15] MEDS: clonazePAM 0.5 MG TABLET PO ×2 (08:47→13:20)
[2021-10-15] MEDS: OLANZapine ODT 10 MG TAB.RAPDIS 20 MG TRANSLINGU (08:47)
[2021-10-15] MEDS: Nicotine 21 MG PATCH.TD24 TRANSDERMA (08:48)
--- NOTE | 2021-10-15 11:08 | P.DS_ITS ---
DS: Providers Provider Date of Service: 10/15/21 Date of admission: 10/03/21 16:41 Date of discharge: 10/15/21 Primary care physician: Unknown Physician Admitting clinician: Rosalind Appiah Attending physician on discharge: George Cta DS: Diagnosis Discharge Diagnosis (1) Schizoaffective disorder, bipolar type: Status: Acute DS: Medications Discharge Medications Home Medications: Home Medications Medication Instructions Recorded Confirmed cyanocobalamin (vitamin B-12) 1 tab PO DAILY 10/03/21 10/03/21 1,000 mcg tablet multivitamin with folic acid 400 1 tab PO DAILY 10/03/21 10/03/21 mcg tablet (Daily-Zo (with folic acid)) Previous Rx's Medication Instructions Recorded nicotine 21 mg/24 hr daily 21 mg transdermal DAILY 28 days 08/28/21 transdermal patch #28 ea chlorpromazine 200 mg tablet 200 mg PO BEDTIME 30 days #30 tabs 10/15/21 divalproex 500 mg tablet,extended 2,000 mg PO BEDTIME 30 days #120 10/15/21 release 24 hr tabs melatonin 3 mg tablet 6 mg PO BEDTIME PRN insomnia 30 10/15/21 days #60 tabs nicotine (polacrilex) 2 mg gum 2 mg PO Q2H PRN Nicotine Cravings 10/15/21 30 days #50 ea olanzapine 15 mg tablet 30 mg PO BEDTIME 30 days #60 tabs 10/15/21 paliperidone palmitate 234 mg/1.5 234 mg (1.5 mL) IM Q30D 30 days 10/15/21 mL intramuscular syringe (Invega #1.5 mL Sustenna) Mental Status Exam Mental Status Exam Narrative: Pt is alert and oriented; behavior is overall much more organized and calm; not manic or hyperverbal and not intrusive, but polite and self-contained; dressed in casual attire, wearing hat; adequate hygiene; mood is described as Okay and affect congruent, more calm; eye contact appropriate; Speech is normal rate, volume and prosody; no longer pressured; no psychomotor agitation present; thought process is mostly goal directed and can remain so when needs to be; can also be intermittently circumstantial. Thought content is on discharge and mostly pertinent to relevant topics; however, still with grandiose, delusional thoughts, though expressed much less; sometimes on paranoid ideations; denies any SI/HI. Intermittent AH; still intermittently internally preoccupied. Patients insight and judgment are impaired but improved and adequate. Data Data Completed and Pending Completed studies during hospitalization [Text1]: 10/11/21 10/11/21 10/13/21 11:13 11:13 11:11 Total Bilirubin 0.4 Direct Bilirubin < 0.2 AST 15 ALT 21 Alkaline Phosphatase 72 Ammonia 38 Total Protein 6.8 Albumin 3.6 Valproic Acid 42.0 L COVID-19 ([facility]) Negative COVID-19 Clin Com See Note 10/14/21 10/14/21 16:17 16:17 Total Bilirubin < 0.2 Direct Bilirubin < 0.2 AST 20 ALT 28 Alkaline Phosphatase 96 D Ammonia 40 Total Protein 8.1 H Albumin 4.0 Valproic Acid 45.7 L COVID-19 ([facility]) COVID-19 Clin Com DS: Summary Hospital Course Hospital Course: HPI: Adi is a 26 y.o. Male who carries a dx of schizoaffective DO, bipolar type. He [place] [facility] [place] since his [place] [facility] [place]. Pt received last Invega Sustenna 234mg IM on 09/21, it does not seem like this most effective medication for him. At this point, pt presents as labile, impulsive, intrusive with others, reporting CAH of hurting others, increasingly paranoid towards family, intrusive with other patients here, d ifficult to redirect. Utox positive for cannabis. Hospital course: On admission, manic; he was restarted on Invega Sustenna and started on depakote since had been helpful before; pt was also started on Trilifon. Patient remains manic, intrusive, instigating fights with others based on delusional, paranoid thinking. Discontinue Trilafon and started Zyprexa Patient was eventually also started on Thorazine which seem to be the only medication helping him sleep 10/09 still manic, but a little less confrontational and intense now on scheduled zyprexa; review of previous admission shows zyprexa 15mg BID so will increase. 10/10 Remains manic, intrusive and intermittently out of control and again required chemical restraint at 02:00 this morning. Today yelling, intrusive but asked for and took p.r.n. saying he wants help 10/12 patient less manic and less intrusive. No longer loud on the unit; slept better last night than before and no overnight disruptions. Still very little insight and wants to discharge but is taking his medications. Irritable but redirectable and mostly keeping to himself. Over the weekend, patient remained in better behavioral control, able to sleep through the night and remained overall appropriate with peers and staff. 10/13 family meeting with mother today. Patient able to be calm and have a goal oriented discussion. While he continues to have and intermittently express delusional, grandiose thinking, he is mostly able to contain these expressions while discussing other topics on which he is able to remained focused. Patient is also no longer intrusive and is demonstrating good behavioral and impulse control and remained overall appropriate with both peers and staff on the unit. Patient demonstrates insight and judgment saying that he knows he needs medications to be stable; also apologized for his past inappropriate behaviors over the past couple weeks. He says he will continue taking his medications and understands and agrees to work with his outpatient provider to taper off some of them. Patient's mother agrees that he is much better than on admission; her concern is that once he leaves the hospital he often stops taking medications/returns to substance abuse and again decompensates. Patient agrees that this has been his pattern in the past but says that he is committed to continuing medications and staying sober. Patient denies any SI or HI. Patient's 3 day notice is coming doing he declines to stay on the unit any further. Supervisor [employer] called and talked with Dr. Satya Joe, patient's outpatient psychiatrist and discussed patient's current medication regimen and overall plan for tapering patient off several of his current medications; tentative goal discussed was to taper patient off both Thorazine and Zyprexa and hopefully have him maintained on only Invega Sustenna and Depakote. Dr. Joe agreed with plan.? Patient expressed a clear understanding of both his need for medication and the risks of not taking medications and engage in substance abuse. And several times, including day of discharge, patient adamantly asserted that he would continue with his medications, follow-up with outpatient provider and pursue sobriety. Patient has community support already established; he maintains his own apartment in the community and has a supportive family. Patients 3 day notice was coming due and he continued to want discharge, saying that he will work with his outpatient provider but that he no longer feels the need to be on the unit. Given patient's psychiatric illness, history of poor outpatient follow-up and struggles with substance abuse, he remains vulnerable to relapse/decompensation at some point and will likely need admission to a psychiatric hospital for stability at some point in the future. However, patient is not in imminent risk of harm to self or others does not rise to the level of involuntary commitment. Patient's request for discharge will be honored. Time spent discussing smoking cessation with patient: 3 to 10 minutes Status at Discharge Functional status at discharge: independent ambulation Overall status at discharge: patient is progressing back to baseline Time Spent with Patient Time attestation: Total time spent providing and/or coordinating discharge services: Time spent: Less than 30 minutes Discharge Plan Discharge Patient Disposition: Home, Self-Care Discharge Diagnosis: Schizoaffective, bipolar type Referrals: Therapist:Sanjuanita Bryan([facility]) [Other] - 10/21/21 10:00 am (In person at the office ) Psych Prescriber: Satya Joe ([facility]) [Other] - 11/18/21 9:00 am (Telehealth ) Psych Prescriber: Satya Joe ([facility]) [Other] - 12/17/21 10:00 am (Telehealth ) Aby Narayan [Nurse Practitioner] - 10/23/21 1:00 pm (in office) Discharge Medications: New divalproex 500 mg Tablet Extended Release 24 Hr 2,000 mg PO BEDTIME 30 Days Qty: 120 0RF Invega Sustenna 234 mg/1.5 mL syringe 234 mg IM Q30D 30 Days Qty: 1.5 0RF Rx Instructions: to be administered by [facility] by 11/07/21 Continued nicotine 21 mg/24 hr Patch 24 Hour 21 mg transdermal DAILY 28 Days Qty: 28 0RF nicotine (polacrilex) 2 mg gum 2 mg PO Q2H PRN (Reason: Nicotine Cravings) 30 Days Qty: 50 0RF Changed melatonin 3 mg tablet 6 mg PO BEDTIME PRN (Reason: insomnia) 30 Days Qty: 60 0RF Discontinued divalproex 500 mg tablet extended release 24 hr 3 tab PO BEDTIME Invega Sustenna 234 mg/1.5 mL syringe 1.25 ml IM Q4W No Action chlorpromazine 200 mg tablet 1 tab PO BEDTIME olanzapine 15 mg tablet 2 tab PO BEDTIME Discharge Orders: Discharge Order (Routine); Ordered 10/15/21 Ordered By: George Cat Diet: Regular diet Activity on Discharge: As tolerated Stand Alone Forms: Patient Portal Discharge page, Community Support Care Plan Goals: Maintain mood and safe behaviors Take medications as prescribed Continue to pursue sobriety Practice coping skills Continue with outpatient providers and reach out to them as needed Health Concerns: Mood stability and behaviors Sobriety Plan of Treatment: Follow up with your PCP, psychiatric provider and other outpatient providers regarding above concerns Take medications as prescribed Assessment: Risk assessment at time of discharge:? Patient was interviewed prior to discharge and found to be fully oriented and without any SI or HI. Patient has insight and demonstrates good judgment in terms of wanting to pursue treatment. Patient is not in imminent risk of harm to self or others and has a safety plan that includes presenting to the closest ER or calling 911 if feeling unsafe.? Patient has been observed closely by nursing and unit staff throughout admission; once patient stabilized he did not engaged in any behaviors that suggest dangerousness to self or others and has demonstrated appropriate behaviors and impulse control Discharge Date/Time: 10/15/21 14:00
== END 2021-10-15 14:00 | disposition home or self-care (01) | DRG 750 ==
LOC: HO.ED 17:05 → HO.PM5 19:41
PROVIDERS: Nurse Practitioner Family; Social Worker; Admitting Provider Psychiatry & Neurology Psychiatry; Emergency Provider Emergency Medicine; Visit Provider Psychiatry & Neurology Psychiatry
DX: F25.0 Schizoaffective disorder, bipolar type (principal); R45.851 Suicidal ideations; F17.210 Nicotine dependence, cigarettes, uncomplicated; Z20.822 Contact with and (suspected) exposure to COVID-19; Z71.6 Tobacco abuse counseling; Z79.899 Other long term (current) drug therapy
CPT/HCPCS: 36415; 80053; 80061; 80076; 80164; 80307; 81003; 82140; 82607; 83036; 84443; 87635; 93005; 99285; J2426; Q0163

== ENCOUNTER 2021-10-19 11:42 | Emergency (ER) | payer MEDICAID, SELFPAY ==
--- NOTE | 2021-10-19 11:51 | ED_ITS ---
HPI - Psych General Chief Complaint: Psychiatric Symptoms Stated Complaint: CRISIS, SI + HI Time Seen by Provider: 10/19/21 11:45 Source: patient and EMS Mode of arrival: EMS History of Present Illness HPI Narrative: This is a 26 years old male with history of schizoaffective disorder, prior ED visit last 10/03/2021,presented by ambulance delusional I am the son of the luciano complaint: hallucinations Onset (ago): day(s) (1) Duration: constant History of same: Yes Relieving factors: none Exacerbating factors: none Associated psychiatric symptoms: racing thoughts, auditory hallucinations and delusions Associated symptoms: denies other symptoms Treatments prior to arrival: none Related Data Home Medications Medication Instructions Recorded Confirmed cyanocobalamin (vitamin B-12) 1 tab PO DAILY 10/03/21 10/03/21 1,000 mcg tablet multivitamin with folic acid 400 1 tab PO DAILY 10/03/21 10/03/21 mcg tablet (Daily-Zo (with folic acid)) Previous Rx's Medication Instructions Recorded nicotine 21 mg/24 hr daily 21 mg transdermal DAILY 28 days 08/28/21 transdermal patch #28 ea chlorpromazine 200 mg tablet 200 mg PO BEDTIME 30 days #30 tabs 10/15/21 divalproex 500 mg tablet,extended 2,000 mg PO BEDTIME 30 days #120 10/15/21 release 24 hr tabs melatonin 3 mg tablet 6 mg PO BEDTIME PRN insomnia 30 10/15/21 days #60 tabs nicotine (polacrilex) 2 mg gum 2 mg PO Q2H PRN Nicotine Cravings 10/15/21 30 days #50 ea olanzapine 15 mg tablet 30 mg PO BEDTIME 30 days #60 tabs 10/15/21 paliperidone palmitate 234 mg/1.5 234 mg (1.5 mL) IM Q30D 30 days 10/15/21 mL intramuscular syringe (Invega #1.5 mL Sustenna) Allergies Allergy/AdvReac Type Severity Reaction Status Date / Time haloperidol [From Haldol] AdvReac Intermediate EPS Verified 08/21/21 11:47 Review of Systems Constitutional: Constitutional: Reports no additional constitutional complaints Cardiovascular: Cardiovascular: Reports no additional cardiovascular complaints Respiratory: Respiratory: Reports no additional respiratory complaints Musculoskeletal: Musculoskeletal: Reports no additional musculoskeletal complaints Neurologic: Reports behavioral changes Psychiatric: Psychiatric: Reports as per HPI, Reports anxiety and Reports behavioral changes PMFSH Past Medical History Medical History Alcohol abuse Bipolar 1 disorder Schizoaffective disorder, bipolar type Social History Social History Household Members: None Housing: Apartment Do you presently have visiting nurse or other home services: No Alcohol intake: current Alcohol intake frequency: a few times a month Alcohol type: beer Patient Tobacco Use Status: Current everyday Tobacco user Tobacco use type: Cigarette Cigarette Packs Per Day: 0.5 Cigarettes Per Day: 10.0 Years Smoked: 15 e-Cigarette/Vaping Use: Former Use Second Hand Smoke Exposure: Yes Use of substances other than those prescribed or required for medical reasons: No Substance Use Type: Marijuana Advance Directives: No Advance Directives Information Provided: No service: No Sexual orientation: Straight/Heterosexual Physical Exam Vital Signs: Vital Signs: Last Vital Signs Temp 97.9 F 10/19/21 11:54 Pulse 100 10/19/21 11:54 Resp 18 10/19/21 11:54 BP 139/81 10/19/21 11:54 Pulse Ox 96 10/19/21 11:54 O2 Del Method 10/19/21 11:54 BMI result Body Mass Index 26.9 Const: General: cooperative Nutritional Appearance: well nourished HEENT: Head: Yes normal to inspection General nose exam: Normal external nose present Face and sinus: Yes normal facial exam Mouth: Normal oral and palatal mucosa present Throat: Yes posterior oropharynx normal Neck: Neck: Yes normal visual inspection and Yes full ROM Chest: Chest palpation & inspection: normal inspection of the chest Resp: Effort & Inspection: normal respiratory effort and able to speak in complete sentences Auscultation: clear to auscultation bilaterally Cardio: Rate: regular rate Rhythm: regular rhythm GI: Inspection: Yes normal to inspection Palpation (GI): Soft to palpation, not firm and nontender Skin: General skin exam: no rashes or lesions noted Neuro: General: no focal motor deficits and CN's II-XI intact bilaterally Cranial nerves: Yes CN's II-XII intact bilaterally Course Reevaluation(s) Reevaluation #1: Waiting for crisis eval. pt will be signed out to Dr Elmogy MDM - Psych Lab Data Labs: Lab Results 10/19/21 10/19/21 Range/Units 12:16 12:16 Urine Opiates Screen Not Detected (Not Detect) Urine Fentanyl Screen Not Detected (Not Detect) Ur Barbiturates Screen Not Detected (Not Detect) Ur Phencyclidine Scrn Not Detected (Not Detect) Ur Amphetamines Screen Not Detected (Not Detect) U Benzodiazepines Scrn Not Detected (Not Detect) Urine Cocaine Screen Not Detected (Not Detect) U Marijuana (THC) Screen POSITIVE H (Not Detect) COVID-19 ([facility]) Negative (Negative) COVID-19 Clin Com See Note Discharge Plan Discharge Clinical Impression: Schizoaffective disorder, bipolar type Prescriptions: No Action nicotine 21 mg/24 hr Patch 24 Hour 21 mg transdermal DAILY 28 Days Qty: 28 0RF cyanocobalamin (vitamin B-12) 1,000 mcg tablet 1 tab PO DAILY multivitamin with folic acid [Daily-Zo (with folic acid)] 400 mcg tablet 1 tab PO DAILY chlorpromazine 200 mg tablet 200 mg PO BEDTIME 30 Days Qty: 30 0RF divalproex 500 mg Tablet Extended Release 24 Hr 2,000 mg PO BEDTIME 30 Days Qty: 120 0RF olanzapine 15 mg tablet 30 mg PO BEDTIME 30 Days Qty: 60 0RF nicotine (polacrilex) 2 mg gum 2 mg PO Q2H PRN (Reason: Nicotine Cravings) 30 Days Qty: 50 0RF melatonin 3 mg tablet 6 mg PO BEDTIME PRN (Reason: insomnia) 30 Days Qty: 60 0RF Invega Sustenna 234 mg/1.5 mL syringe 234 mg IM Q30D 30 Days Qty: 1.5 0RF Rx Instructions: to be administered by [facility] by 11/07/21
[2021-10-19 11:54] VITALS: BP 132/74; BP 139/81; PULSE 100; PULSE 96; RESP 18; TEMP 36.6; O2SAT 96; O2SAT 98; BMI 26.9
[2021-10-19 12:38] LABS: Amphetamine Screen Urine Not Detected (Not Detect); Barbiturates, Urine Not Detected (Not Detect); Benzodiazepines Screen Urine Not Detected (Not Detect); Cannabinoid Screen Urine POSITIVE (Not Detect); Cocaine Screen Urine Not Detected (Not Detect); Fentanyl, urine Not Detected (Not Detect); Opiate Screen Urine Not Detected (Not Detect); Phencyclidine Screen Urine Not Detected (Not Detect)
[2021-10-19 12:40] LABS: COVID-19 Test Negative (Negative)
[2021-10-20 06:39] VITALS: BP 143/71; PULSE 74; RESP 16; TEMP 36.6; O2SAT 99
--- NOTE | 2021-10-20 06:55 | PC.NURSE ---
Patient slept through the night, no distress observed/reported, patient was assessed by N, patient well engaged with [facility] clinician, disposition current provider, med rec completed/pending provider's approval, will continue to monitor.
--- NOTE | 2021-10-20 09:00 | PC.NURSE ---
this science writer assumed care of this pt at 0700. pt sleeping at the time of assuming care. pt currently awake, breakfast given. pt cleared for discharge, pt requested shower prior to leaving, all belongings returned. denied pain.
== END 2021-10-20 09:21 | disposition home or self-care (01) ==
PROVIDERS: Emergency Provider Emergency Medicine
DX: F25.0 Schizoaffective disorder, bipolar type (principal); F33.1 Major depressive disorder, recurrent, moderate; R45.851 Suicidal ideations; R45.850 Homicidal ideations; Z20.822 Contact with and (suspected) exposure to COVID-19; Z79.899 Other long term (current) drug therapy; Z87.891 Personal history of nicotine dependence
CPT/HCPCS: 80307; 87635; 99284

== ENCOUNTER 2021-10-23 16:36 | Inpatient (IN) | payer OTHER, MEDICAID, SELFPAY ==
--- NOTE | ~2021-10-23 | XR_ITS ---
EXAMINATION: XR ABDOMEN KUB CLINICAL INDICATION: Bloating. Constipation. COMPARISON: Abdomen 07/26/2021 TECHNIQUE: AP view of the abdomen. FINDINGS: The bowel gas pattern is normal with no evidence of ileus or obstruction. Moderate volume of stool throughout the colon. The overall volume of stool is less than the prior study of 07/26/2021. No unusual soft tissue calcifications are noted. The bones are unremarkable. XR/XR KUB IMPRESSION: No acute abnormality the abdomen.
[2021-10-23 16:48] VITALS: BP 132/70; PULSE 102; O2SAT 99; BMI 27.8
--- NOTE | 2021-10-23 16:48 | ED_ITS ---
HPI - Psych General Chief Complaint: Psychiatric Symptoms Stated Complaint: hallucinations Time Seen by Provider: 10/23/21 16:48 Source: patient and EMS Mode of arrival: EMS Limitations: other (Acutely psychotic) History of Present Illness HPI Narrative: 18 year old male history of schizoaffective disorder, bipolar type presenting to the emergency department visual, auditory hallucinations times a few days worsen ing. Patient tells me him that he is hearing and seeing voices, unable to tell me exactly what they are saying however he tells me that he is Lucifer and is carrying Lucifers son Paolo. Patient reports to me that he is tapping into [place] and [place] . [facility] in [place] where he was evaluated and placed on a Section 12. He tells me because of this voices he feels like he will soon be suicidal and homicidal. Tells me he has been drinking however unable to tell me how much, tells me he smokes marijuana and smokes tobacco. Patient denies any medical complaints at this time MD complaint: hallucinations Related Data Home Medications Medication Instructions Recorded Confirmed chlorpromazine 200 mg tablet 1 tab PO BEDTIME 10/23/21 10/23/21 olanzapine 15 mg tablet 2 tab PO BEDTIME 10/23/21 10/23/21 Previous Rx's Medication Instructions Recorded nicotine 21 mg/24 hr daily 21 mg transdermal DAILY 28 days 08/28/21 transdermal patch #28 ea divalproex 500 mg tablet,extended 2,000 mg PO BEDTIME 30 days #120 10/15/21 release 24 hr tabs melatonin 3 mg tablet 6 mg PO BEDTIME PRN insomnia 30 10/15/21 days #60 tabs nicotine (polacrilex) 2 mg gum 2 mg PO Q2H PRN Nicotine Cravings 10/15/21 30 days #50 ea paliperidone palmitate 234 mg/1.5 234 mg (1.5 mL) IM Q30D 30 days 10/15/21 mL intramuscular syringe (Invega #1.5 mL Sustenna) Allergies Allergy/AdvReac Type Severity Reaction Status Date / Time haloperidol [From Haldol] AdvReac Intermediate EPS Verified 08/21/21 11:47 Review of Systems Review of Systems: Constitutional : No Weight loss, No Fever, No Chills, No Fatigue, No Malaise ENT/Mouth : No sore throat, No Rhinorrhea Eyes: No Eye Pain, No Swelling, No Redness Cardiovascular : No Chest Pain, No SOB, No Dyspnea on Exertion, No Orthopnea, No Edema, No Palpitations Respiratory : No Cough, No Sputum, No Wheezing Gastrointestinal : No Nausea, No Vomiting, No Diarrhea, No Constipation, No abdominal Pain, No Hematochezia, No Melena Genitourinary : No Dysuria, No Urinary Frequency, No Hematuria, Musculoskeletal : No joint pain, No Myalgias, No Joint Swelling Skin : No Skin Lesions, No rash Neuro : No Weakness, No Numbness, No Dizziness, No Headache Psych : No Anxiety/Panic, No Depression, + AH,TH, No SI and HI All other systems reviewed and are negative Yes all other systems are reviewed and are negative [facility] Past Medical History Attestation statement: The following information was validated with the patient. Source: old records reviewed and nursing notes reviewed Medical History Alcohol abuse Bipolar 1 disorder Schizoaffective disorder, bipolar type Social History Social History Household Members: None Housing: Apartment Do you presently have visiting nurse or other home services: No Alcohol intake: current Alcohol intake frequency: a few times a month Alcohol type: beer Patient Tobacco Use Status: Current everyday Tobacco user Tobacco use type: Cigarette Cigarette Packs Per Day: 0.5 Cigarettes Per Day: 10.0 Years Smoked: 15 e-Cigarette/Vaping Use: Former Use Second Hand Smoke Exposure: Yes Substance Use Type: Marijuana Advance Directives: No Advance Directives Information Provided: No service: No Sexual orientation: Straight/Heterosexual Physical Exam Vital Signs: Vital Signs: Last Vital Signs Temp 97.9 F 10/23/21 17:01 Pulse 93 10/23/21 17:01 Resp 18 10/23/21 17:01 BP 138/70 10/23/21 17:01 Pulse Ox 96 10/23/21 17:01 O2 Del Method 10/23/21 17:01 BMI result Body Mass Index 27.8 vss Appearance: Alert.? Oriented X3.? No acute distress.? Head: Normocephalic, atraumatic, no step-offs or deformities Eyes: Pupils equal, round and reactive to light.? ENT: Pharynx normal.? Neck: Normal inspection.? Neck supple.? CVS: Normal heart rate and rhythm.? Pulses normal.? Respiratory: No respiratory distress.? Breath sounds normal.? Abdomen: Soft and nontender.? Skin: Skin warm and dry.? Normal skin color.? Normal skin turgor.? Extremities: No lower extremity edema.? No calf ttp. 5/5 strength to bilateral upper and lower extremities Neuro: Oriented X 3.? No motor deficit.? No sensory deficit. CN 2-12 intact Course Reevaluation(s) Reevaluation #1: CBC within normal limits. Chemistry with no acute electrolyte abnormalities requiring intervention. Ethanol negative. UA and urine toxicology pending. COVID negative. At this time patient will be placed in physician observation to allow more time to be evaluated by the behavioral health team at time observation was started patient common cooperative no acute distress will continue to monitor. He will remain on a Section 12. As suspect this patient will be an inpatient bed search. Time: 20:14 MDM - Psych MDM Narrative Medical decision making narrative: 1700 26-year-old male presents with visual and auditory hallucinations as well as acute psychosis for few days coming from the [facility]. PE benign however patient acutely psychotic. Plan at this time is medical clearance and evaluation of the behavioral health team. Medical Records Attestation: I reviewed the patient's medical records. Lab Data Attestation: I reviewed the patient's lab results. Result diagrams: 10/23/21 17:26 10/23/21 17:26 Labs: Lab Results 10/23/21 10/23/21 10/23/21 Range/Units 17:14 17:26 17:26 WBC 10.6 (4.8-10.8) X10*3/uL RBC 4.73 (4.60-5.80) X10*6/uL Hgb 15.5 (14.0-18.0) g/dl Hct 44.8 (42.0-52.0) % MCV 94.7 (80.0-98.0) fL MCH 32.8 (27.0-33.0) pg MCHC 34.6 (31.0-36.0) g/dl RDW 12.1 (11.0-16.0) % Plt Count 327 (160-400) X10*3/uL MPV 9.1 L (9.4-12.4) fL Immature Gran % (Auto) 0.8 H (0.0-0.4) % Neut % (Auto) 74.2 H (45-73) % Lymph % (Auto) 17.0 L (20-40) % [place] % (Auto) 7.2 (2-11) % Eos % (Auto) 0.6 (0-4) % Baso % (Auto) 0.2 (0-2) % Lymph # (Auto) 1.8 (1.2-4.9) X10*3/uL [place] # (Auto) 0.8 (0.1-1.2) X10*3/uL Eos # (Auto) 0.1 (0.0-0.4) X10*3/uL Baso # (Auto) 0.0 (0.0-0.2) X10*3/uL Abs Immat Gran (auto) 0.08 H (0.00-0.03) X10*3/uL Absolute Neuts (auto) 7.9 (2.0-8.3) x10*3/uL Absolute Nucleated RBC 0.000 (0.0-0.012) X10*3/uL Nucleated RBC % (auto) 0.0 (0.0-0.2) /100WBC Sodium 139 (135-145) mmol/L Potassium 4.1 (3.3-5.1) mmol/L Chloride 101 (96-108) mmol/L Carbon Dioxide 27 (22-29) mmol/L Anion Gap 15 (12-20) BUN 8 L (9-16) mg/dL Creatinine 0.83 (0.5-1.4) mg/dL Estim Creat Clear Calc 125.9 Estimated GFR > 60 Random Glucose 99 (60-115) mg/dL Calcium 9.4 (8.4-10.2) mg/dL Magnesium 2.1 (1.6-2.6) mg/dL Total Bilirubin 1.0 (0.0-1.0) mg/dL AST 22 (5-37) U/L ALT 26 (0-40) U/L Alkaline Phosphatase 63 D (39-117) U/L Total Protein 8.4 H (6.5-8.0) g/dL Albumin 4.6 (3.5-5.0) g/dL Ethyl Alcohol < 10 mg/dL COVID-19 (LESLI) Negative (Negative) COVID-19 Clin Com See Note Critical Care Time Critical Care Time Critical Care Time: No Discharge Plan Discharge Clinical Impression: Schizoaffective disorder, bipolar type, Hallucinations Patient Disposition: Still a Patient Prescriptions: No Action nicotine 21 mg/24 hr Patch 24 Hour 21 mg transdermal DAILY 28 Days Qty: 28 0RF divalproex 500 mg Tablet Extended Release 24 Hr 2,000 mg PO BEDTIME 30 Days Qty: 120 0RF nicotine (polacrilex) 2 mg gum 2 mg PO Q2H PRN (Reason: Nicotine Cravings) 30 Days Qty: 50 0RF melatonin 3 mg tablet 6 mg PO BEDTIME PRN (Reason: insomnia) 30 Days Qty: 60 0RF Invega Sustenna 234 mg/1.5 mL syringe 234 mg IM Q30D 30 Days Qty: 1.5 0RF Rx Instructions: to be administered by [facility] by 11/07/21 chlorpromazine 200 mg tablet 1 tab PO BEDTIME olanzapine 15 mg tablet 2 tab PO BEDTIME
[2021-10-23 17:01] VITALS: BP 138/70; PULSE 93; RESP 18; TEMP 36.6; O2SAT 96
[2021-10-23] MEDS: OLANZapine 10 MG TABLET 5 MG PO (17:18)
[2021-10-23] MEDS: diphenhydrAMINE HCL 25 MG TABLET 50 MG PO (17:18)
[2021-10-23 17:30] LABS: MANUAL DIFF FLAG NO
[2021-10-23 17:34] LABS: Basophils Percent Auto 0.2 % (0-2); Eosinophils Absolute Auto 0.1 X10*3/uL (0.0-0.4); Eosinophils Percent Auto 0.6 % (0-4); Hematocrit 44.8 % (42.0-52.0); Hemoglobin 15.5 g/dl (14.0-18.0); Imm Gran Abs Auto 0.08 X10*3/uL (0.00-0.03); Imm Gran Pct Auto 0.8 % (0.0-0.4); Lymphocytes Absolute Auto 1.8 X10*3/uL (1.2-4.9); Mean Corpuscular HGB Conc 34.6 g/dl (31.0-36.0); Mean Corpuscular Hemoglobin 32.8 pg (27.0-33.0); Mean Corpuscular Volume 94.7 fL (80.0-98.0); Mean Platelet Volume 9.1 fL (9.4-12.4); Monocytes Absolute Auto 0.8 X10*3/uL (0.1-1.2); Monocytes Percent Auto 7.2 % (2-11); Neutrophils Absolute Auto 7.9 x10*3/uL (2.0-8.3); Neutrophils Percent Auto 74.2 % (45-73); Platelet Count 327 X10*3/uL (160-400); Red Blood Count 4.73 X10*6/uL (4.60-5.80); Red Cell Distribution Width 12.1 % (11.0-16.0); White Blood Count 10.6 X10*3/uL (4.8-10.8)
[2021-10-23 17:35] LABS: COVID-19 Test Negative (Negative); IDNOW Serial# 16C4AD1C
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
[2021-10-23 17:47] LABS: Alanine Aminotransferase 26 U/L (0-40); Albumin Level 4.6 g/dL (3.5-5.0); Alkaline Phosphatase 63 U/L (39-117); Anion Gap 15 (12-20); Aspartate Amino Transferase 22 U/L (5-37); Blood Urea Nitrogen 8 mg/dL (9-16); Calcium 9.4 mg/dL (8.4-10.2); Carbon Dioxide 27 mmol/L (22-29); Chloride 101 mmol/L (96-108); Creatinine Clr Calc Pharmacy 125.9; Estimated Glomerular Filt Rate > 60; Ethanol < 10 mg/dL; Glucose Random 99 mg/dL (60-115); Magnesium 2.1 mg/dL (1.6-2.6); Potassium 4.1 mmol/L (3.3-5.1); Sodium 139 mmol/L (135-145); Total Protein 8.4 g/dL (6.5-8.0)
--- NOTE | 2021-10-23 18:02 | PHA.MEDREC ---
Pharmacy Consult ? Medication Reconciliation Pharmacy has completed the medication reconciliation.
--- NOTE | 2021-10-24 06:50 | PC.NURSE ---
Patient slept through the night, no distress observed/reported, med rec completed/pending provider's approval, disposition per [facility] is section 12 inpatient bed search, VSS, behavior non concerning, will continue to monitor.
[2021-10-24] MEDS: Nicotine 21 MG PATCH.TD24 TRANSDERMA (08:43)
[2021-10-24 09:27] LABS: Amphetamine Screen Urine Not Detected (Not Detect); Appearance Urine Clear; Barbiturates, Urine Not Detected (Not Detect); Benzodiazepines Screen Urine Not Detected (Not Detect); Cannabinoid Screen Urine POSITIVE (Not Detect); Cocaine Screen Urine Not Detected (Not Detect); Color Urine Yellow; Fentanyl, urine Not Detected (Not Detect); Glucose Urine UA Negative (Negative); Leukocyte Esterase Urine Trace (Negative); Nitrite Urine Negative (Negative); Opiate Screen Urine Not Detected (Not Detect); PH 6.5 (5.0-8.0); Phencyclidine Screen Urine Not Detected (Not Detect); Specific Gravity - Urine 1.025 (1.005-1.025); Urine Blood Negative (Negative); Urine Ketones Trace mg/dL (Negative); Urine Protein Negative (Neg-Trace)
[2021-10-24 09:29] LABS: Bacteria Urine None Seen (None Seen); Hyaline Casts Urine 0-2 /LPF (0-2); Squamous Epithelial Cell Urine 0-2 /HPF (0-2); WBC Urine 0-5 /HPF (0-5)
[2021-10-24 11:13] VITALS: BP 130/84; PULSE 117; RESP 18; TEMP 36.6; O2SAT 96
--- NOTE | 2021-10-24 15:52 | PC.NURSE ---
Pt resting quietly in bed eyes closed x 1 hour, report from Erum SYED, joselyn hanging in APR, will admin when pt awakens.
[2021-10-24] MEDS: OLANZapine 5 MG TABLET PO (16:44)
[2021-10-24 18:00] VITALS: BP 137/70; PULSE 86; TEMP 36.6; O2SAT 97
[2021-10-24] MEDS: OLANZapine 10 MG TABLET 30 MG PO (20:21)
[2021-10-24] MEDS: Divalproex Sodium ER 500 MG TAB.ER.24H 2000 MG PO (20:21)
[2021-10-24] MEDS: Melatonin 3 MG TABLET 6 MG PO (20:22)
[2021-10-24 20:25] VITALS: BP 149/81; PULSE 89; TEMP 36.6; O2SAT 97
--- NOTE | 2021-10-25 01:30 | PC.ADMIT ---
admitted on 10/24/21-this is one of several [facility] behavioral health admissions for this 26 year old male. legal CV. dx schizoaffective d/o. pt was a referral from [facility] via [facility]. patient was referred by provider at [facility] concerned about patients non compliance to medications with an increase in auditory hallucinations. nurse to nurse, collateral information obtained prior to admission. GAYTAN + for marijuana. denies alcohol use. no medical issues noted. cooperative to admission process. was active in admission process. medication reconciliation done in the ER prior to acceptance to [facility]. treatment plan initiated. safety tool initiated. oriented to unit.
[2021-10-25 08:28] LABS: Estimated Average Glucose 97 mg/dL
[2021-10-25 08:34] LABS: Alanine Aminotransferase 22 U/L (0-40); Albumin Level 3.9 g/dL (3.5-5.0); Alkaline Phosphatase 58 U/L (39-117); Anion Gap 14 (12-20); Aspartate Amino Transferase 16 U/L (5-37); Bilirubin Total 0.4 mg/dL (0.0-1.0); Blood Urea Nitrogen 12 mg/dL (9-16); Calcium 8.9 mg/dL (8.4-10.2); Carbon Dioxide 27 mmol/L (22-29); Chloride 105 mmol/L (96-108); Cholesterol 219 mg/dL; Creatinine Clr Calc Pharmacy 127.4; Estimated Glomerular Filt Rate > 60; Glucose Fasting 92 mg/dL (60-99); HDL Cholesterol 39 mg/dL; LDL Cholesterol Calculated 166 mg/dl; Potassium 4.2 mmol/L (3.3-5.1); Sodium 142 mmol/L (135-145); Total Protein 7.2 g/dL (6.5-8.0); Triglycerides 74 mg/dL
[2021-10-25 09:01] VITALS: BP 140/80; PULSE 73; RESP 18; TEMP 36.3; O2SAT 98
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
[2021-10-25] MEDS: Divalproex Sodium ER 500 MG TAB.ER.24H 2000 MG PO (20:30)
[2021-10-25] MEDS: OLANZapine 10 MG TABLET 30 MG PO (20:31)
[2021-10-25 20:33] VITALS: BP 131/88; PULSE 120; TEMP 36.6; O2SAT 95
--- NOTE | 2021-10-26 09:23 | HO.PSYCHPN ---
Subjective Subjective Date of Service: 10/26/21 Reason For Visit: PSYCHOSIS / schizoaffective disorder Subjective Notes: Conditional Voluntary Healthcare Proxy: No Guardianship: No Medical Problems Affecting Mental Status: No Interim History: Patient was seen and discussed in rounds today. Records and plans were reviewed. He states that he is doing better. He continues to be isolative and have some anxiety and depression. He states that the auditory hallucinations are better and not as bothersome an overwhelming. Had eating and sleeping well. No side effects. No complaints. No SI. No changes were made today Medication Compliance: Yes Side effects from medications: No Review of Systems Review of Systems Yes all other systems are reviewed and are negative Mental Status Exam Mental Status Exam Narrative: In today's visit he is alert, oriented and pleasant. Normal speech. Good eye contact. Affect is appropriate and less tense. He states that he is settling in to the milieu. He states that the auditory hallucinations are present but not as bothersome an overwhelming. No SI. Cognitively is intact. Judgment is intact Diagnostics Vital Signs (24Hr): Vital Signs - 24 hr 10/25/21 20:33 Temperature 97.9 F Pulse Rate 120 H Blood Pressure 131/88 Pulse Oximetry 95 Oxygen Delivery Method Room Air BMI result Body Mass Index 27.8 Labs Results: 10/23/21 17:26 10/25/21 07:39 Labs: Laboratory Results - last 48 hr 10/24/21 10/24/21 10/25/21 09:02 09:02 07:39 Sodium 142 Potassium 4.2 Chloride 105 Carbon Dioxide 27 Anion Gap 14 BUN 12 Creatinine 0.82 Estim Creat Clear Calc 127.4 Estimated GFR > 60 Fasting Glucose 92 Estimat Average Glucose Hemoglobin A1c % Calcium 8.9 Total Bilirubin 0.4 AST 16 ALT 22 Alkaline Phosphatase 58 Total Protein 7.2 Albumin 3.9 Triglycerides 74 Cholesterol 219 D LDL Cholesterol, Calc 166 HDL Cholesterol 39 Urine Color Yellow Urine Appearance Clear Urine pH 6.5 Ur Specific [place] 1.025 Urine Protein Negative Urine Glucose (UA) Negative Urine Ketones Trace Urine Blood Negative Urine Nitrite Negative Ur Leukocyte Esterase Trace H Urine RBC 3-5 H Urine WBC 0-5 Ur Squamous Epith Cells 0-2 Urine Bacteria None Seen Hyaline Casts 0-2 Urine Opiates Screen Not Detected Urine Fentanyl Screen Not Detected Ur Barbiturates Screen Not Detected Ur Phencyclidine Scrn Not Detected Ur Amphetamines Screen Not Detected U Benzodiazepines Scrn Not Detected Urine Cocaine Screen Not Detected U Marijuana (THC) Screen POSITIVE H 10/25/21 07:39 Sodium Potassium Chloride Carbon Dioxide Anion Gap BUN Creatinine Estim Creat Clear Calc Estimated GFR Fasting Glucose Estimat Average Glucose 97 Hemoglobin A1c % 5.0 Calcium Total Bilirubin AST ALT Alkaline Phosphatase Total Protein Albumin Triglycerides Cholesterol LDL Cholesterol, Calc HDL Cholesterol Urine Color Urine Appearance Urine pH Ur Specific [place] Urine Protein Urine Glucose (UA) Urine Ketones Urine Blood Urine Nitrite Ur Leukocyte Esterase Urine RBC Urine WBC Ur Squamous Epith Cells Urine Bacteria Hyaline Casts Urine Opiates Screen Urine Fentanyl Screen Ur Barbiturates Screen Ur Phencyclidine Scrn Ur Amphetamines Screen U Benzodiazepines Scrn Urine Cocaine Screen U Marijuana (THC) Screen Medications Medications Current Medications Acetaminophen (Acetaminophen 325 Mg Tablet) 650 mg PO Q6H PRN PRN Reason: Headache/Pain Mild Scale (1-3) Al Hydroxide/Mg Hydroxide (Magnesium Hydrox/Alum Hydrox 30 Ml Oral.Susp) 30 ml PO Q6H PRN PRN Reason: Heartburn/Nausea Divalproex Sodium (Divalproex Sodium Er 500 Mg Tab.Er.24h) 2,000 mg PO BEDTIME [facility] Last Admin: 10/25/21 20:30 Dose: 2,000 mg Hydroxyzine HCl (Hydroxyzine Hcl 25 Mg Tablet) 25 mg PO Q6H PRN PRN Reason: Anxiety Magnesium Hydroxide (Milk Of Magnesia 30 Ml Oral.Susp) 30 ml PO DAILY PRN PRN Reason: Constipation Melatonin (Melatonin 3 Mg Tablet) 6 mg PO BEDTIME PRN PRN Reason: insomnia Last Admin: 10/24/21 20:22 Dose: 6 mg Nicotine (Nicotine 21 Mg Patch.Td24) 21 mg TRANSDERMA DAILY [facility] Last Admin: 10/25/21 11:35 Dose: Not Given Olanzapine (Olanzapine 10 Mg Tablet) 30 mg PO BEDTIME [facility] Last Admin: 10/25/21 20:31 Dose: 30 mg Paliperidone Palmitate (Paliperidone Palmitate 234 Mg/1.5 Ml Syringe) 234 mg IM Q30D [facility] Last Admin: 10/24/21 01:14 Dose: Not Given Pharmacy Consult (Consult Rx Perform Med Rec) 1 each MISCELLANE ONCE PRN PRN Reason: Consult order Trazodone HCl (Trazodone Hcl 50 Mg Tablet) 50 mg PO BEDTIME PRN PRN Reason: Insomnia Allergies Allergies Allergy/AdvReac Type Severity Reaction Status Date / Time haloperidol [From Haldol] AdvReac Intermediate EPS Verified 08/21/21 11:47 Assessment & Plan Assessment & Plan (1) Schizoaffective disorder, bipolar type: Status: Acute Code(s): F25.0 - Schizoaffective disorder, bipolar type Plan 10/25/2021 resume his current medications. He was educated around his medications. 10/26: Continue current regimen and plans I spent minutes with the patient and/or on the patient floor today, greater than?50% of which was spent counseling/coordinating care. Reason for contiued inpatient stay Substantial Risk for: med/psych decompensation
[2021-10-26 13:07] VITALS: BP 130/73; PULSE 120; RESP 18; TEMP 36.3; O2SAT 96
[2021-10-26] MEDS: hydrOXYzine HCL 25 MG TABLET PO (14:15)
[2021-10-26] MEDS: Nicotine Polacrilex 2 MG GUM BUCCAL ×2 (14:41→21:33)
[2021-10-26 21:15] VITALS: BP 133/72; PULSE 84; RESP 18; TEMP 36.6; O2SAT 97
[2021-10-26] MEDS: Divalproex Sodium ER 500 MG TAB.ER.24H 2000 MG PO (21:32)
[2021-10-26] MEDS: Melatonin 3 MG TABLET 6 MG PO (21:33)
[2021-10-26] MEDS: OLANZapine 10 MG TABLET 30 MG PO (21:33)
--- NOTE | 2021-10-27 08:58 | P.PNPSI_ITS ---
Subjective Subjective Date of Service: 10/27/21 Reason For Visit: PSYCHOSIS / schizoaffective disorder Subjective Notes: Conditional Voluntary Interim History: Pt mostly in bed today. he reports he was not able to sleep well. He reports feeling tired. He reports voices are less, feels less tormented by the voices. He denies SI/HI. He reports he doesn't like ativan anymore because it brings a voice back. He reports this time he will try to stay with his mother after discharge and be more consistent with medication. Medication Compliance: Yes Side effects from medications: No Attending Groups: No Review of Systems Review of Systems Constitutional : No Weight loss, No Fever, No Chills, No Fatigue, No Malaise ENT/Mouth : No sore throat, No Rhinorrhea Eyes: No Eye Pain, No Swelling, No Redness Cardiovascular : No Chest Pain, No SOB, No Dyspnea on Exertion, No Orthopnea, No Edema, No Palpitations Respiratory : No Cough, No Sputum, No Wheezing Gastrointestinal : No Nausea, No Vomiting, No Diarrhea, No Constipation, No abdominal Pain, No Hematochezia, No Melena Genitourinary : No Dysuria, No Urinary Frequency, No Hematuria, Musculoskeletal : No joint pain, No Myalgias, No Joint Swelling Skin : No Skin Lesions, No rash Neuro : No Weakness, No Numbness, No Dizziness, No Headache Psych : No Anxiety/Panic, No Depression, + AH,TH, No SI and HI All other systems reviewed and are negative Yes all other systems are reviewed and are negative Mental Status Exam Mental Status Exam Narrative: Appearance: casually groomed, fair hygiene in NAD Behavior:cooperative psychomotor: no agitation or retardation noted Speech:clear, normal rate/rhythm/volume, spontaneous Thought process:tangential, no loose associations Thought content:less voices, feeling tired, still paranoia, mormon delusions Mood: tired Affect: congruent, anxious SI:denies HI:denies VH/AH:+AH Delusions:paranoia, mormon delusions Insight/judgment:poor x 2. Memory/cog: alert, oriented x 3. Diagnostics Vital Signs (24Hr): Vital Signs - 24 hr 10/27/21 10:00 10/27/21 21:00 Temperature 98.1 F 97.8 F Pulse Rate 104 H 74 Respiratory Rate 18 18 Blood Pressure 145/89 H 128/85 Pulse Oximetry 99 98 Oxygen Delivery Method Room Air Room Air BMI result Body Mass Index 27.8 Labs Results: 10/23/21 17:26 10/25/21 07:39 Medications Medications Current Medications Acetaminophen (Acetaminophen 325 Mg Tablet) 650 mg PO Q6H PRN PRN Reason: Headache/Pain Mild Scale (1-3) Al Hydroxide/Mg Hydroxide (Magnesium Hydrox/Alum Hydrox 30 Ml Oral.Susp) 30 ml PO Q6H PRN PRN Reason: Heartburn/Nausea Divalproex Sodium (Divalproex Sodium Er 500 Mg Tab.Er.24h) 2,000 mg PO BEDTIME [facility] Last Admin: 10/27/21 21:41 Dose: 2,000 mg Hydroxyzine HCl (Hydroxyzine Hcl 25 Mg Tablet) 25 mg PO Q6H PRN PRN Reason: Anxiety Last Admin: 10/27/21 18:45 Dose: 25 mg Magnesium Hydroxide (Milk Of Magnesia 30 Ml Oral.Susp) 30 ml PO DAILY PRN PRN Reason: Constipation Melatonin (Melatonin 3 Mg Tablet) 6 mg PO BEDTIME PRN PRN Reason: insomnia Last Admin: 10/27/21 21:41 Dose: 6 mg Nicotine (Nicotine 21 Mg Patch.Td24) 21 mg TRANSDERMA DAILY [facility] Last Admin: 10/27/21 14:48 Dose: Not Given Nicotine Polacrilex (Nicotine Polacrilex 2 Mg Gum) 2 mg BUCCAL Q2H PRN PRN Reason: Nicotine Cravings Last Admin: 10/26/21 21:33 Dose: 2 mg Olanzapine (Olanzapine 10 Mg Tablet) 30 mg PO BEDTIME [facility] Last Admin: 10/27/21 21:41 Dose: 30 mg Paliperidone Palmitate (Paliperidone Palmitate 234 Mg/1.5 Ml Syringe) 234 mg IM Q30D [facility] Last Admin: 10/24/21 01:14 Dose: Not Given Pharmacy Consult (Consult Rx Perform Med Rec) 1 each MISCELLANE ONCE PRN PRN Reason: Consult order Trazodone HCl (Trazodone Hcl 50 Mg Tablet) 50 mg PO BEDTIME PRN PRN Reason: Insomnia Allergies Allergies Allergy/AdvReac Type Severity Reaction Status Date / Time haloperidol [From Haldol] AdvReac Intermediate EPS Verified 08/21/21 11:47 Assessment & Plan Assessment & Plan (1) Schizoaffective disorder, bipolar type: Status: Acute Code(s): F25.0 - Schizoaffective disorder, bipolar type Plan 10/25/2021 resume his current medications. He was educated around his medications. 10/26: Continue current regimen and plans 10/27 continue current medications. I spent minutes with the patient and/or on the patient floor today, greater than?50% of which was spent counseling/coordinating care. Reason for contiued inpatient stay Substantial Risk for: harm to self and inability to function
[2021-10-27 10:00] VITALS: BP 145/89; PULSE 104; RESP 18; TEMP 36.7; O2SAT 99
[2021-10-27] MEDS: hydrOXYzine HCL 25 MG TABLET PO (18:45)
[2021-10-27 21:00] VITALS: BP 128/85; PULSE 74; RESP 18; TEMP 36.6; O2SAT 98
[2021-10-27] MEDS: OLANZapine 10 MG TABLET 30 MG PO (21:41)
[2021-10-27] MEDS: Melatonin 3 MG TABLET 6 MG PO (21:41)
[2021-10-27] MEDS: Divalproex Sodium ER 500 MG TAB.ER.24H 2000 MG PO (21:41)
[2021-10-28] MEDS: Nicotine 21 MG PATCH.TD24 TRANSDERMA (09:50)
[2021-10-28 09:57] VITALS: BP 133/86; PULSE 116; RESP 16; TEMP 36.6; O2SAT 96
--- NOTE | 2021-10-28 14:14 | HO.PSYCHPN ---
Subjective Subjective Date of Service: 10/28/21 Reason For Visit: PSYCHOSIS / schizoaffective disorder Subjective Notes: Conditional Voluntary Interim History: Pt more visible on the unit. Pt reports his sleep was fair as he was tossing and turning. He reports he continues to hear voices, but to lesser extend. He reports he thinks people are talking about him. He denies SI/HI. He reports eating well. He reports feeling suspicious towards peer, but some insight as to peers also having paranoia. Medication Compliance: Yes Side effects from medications: No Attending Groups: Yes Review of Systems Review of Systems Constitutional : No Weight loss, No Fever, No Chills, No Fatigue, No Malaise ENT/Mouth : No sore throat, No Rhinorrhea Eyes: No Eye Pain, No Swelling, No Redness Cardiovascular : No Chest Pain, No SOB, No Dyspnea on Exertion, No Orthopnea, No Edema, No Palpitations Respiratory : No Cough, No Sputum, No Wheezing Gastrointestinal : No Nausea, No Vomiting, No Diarrhea, No Constipation, No abdominal Pain, No Hematochezia, No Melena Genitourinary : No Dysuria, No Urinary Frequency, No Hematuria, Musculoskeletal : No joint pain, No Myalgias, No Joint Swelling Skin : No Skin Lesions, No rash Neuro : No Weakness, No Numbness, No Dizziness, No Headache Psych : No Anxiety/Panic, No Depression, + AH,TH, No SI and HI All other systems reviewed and are negative Yes all other systems are reviewed and are negative Mental Status Exam Mental Status Exam Narrative: Appearance: casually groomed, fair hygiene in NAD Behavior:cooperative psychomotor: no agitation or retardation noted Speech:clear, normal rate/rhythm/volume, spontaneous Thought process:tangential, no loose associations Thought content:less voices, feeling tired, still paranoia, worship delusions Mood: tired Affect: congruent, anxious SI:denies HI:denies VH/AH:+AH Delusions:paranoia, worship delusions Insight/judgment:poor x 2. Memory/cog: alert, oriented x 3. Diagnostics Vital Signs (24Hr): Vital Signs - 24 hr 10/27/21 21:00 10/28/21 09:57 Temperature 97.8 F 97.9 F Pulse Rate 74 116 H Respiratory Rate 18 16 Blood Pressure 128/85 133/86 Pulse Oximetry 98 96 Oxygen Delivery Method Room Air BMI result Body Mass Index 27.8 Labs Results: 10/23/21 17:26 10/25/21 07:39 Medications Medications Current Medications Acetaminophen (Acetaminophen 325 Mg Tablet) 650 mg PO Q6H PRN PRN Reason: Headache/Pain Mild Scale (1-3) Al Hydroxide/Mg Hydroxide (Magnesium Hydrox/Alum Hydrox 30 Ml Oral.Susp) 30 ml PO Q6H PRN PRN Reason: Heartburn/Nausea Divalproex Sodium (Divalproex Sodium Er 500 Mg Tab.Er.24h) 2,000 mg PO BEDTIME [facility] Last Admin: 10/27/21 21:41 Dose: 2,000 mg Hydroxyzine HCl (Hydroxyzine Hcl 25 Mg Tablet) 25 mg PO Q6H PRN PRN Reason: Anxiety Last Admin: 10/27/21 18:45 Dose: 25 mg Magnesium Hydroxide (Milk Of Magnesia 30 Ml Oral.Susp) 30 ml PO DAILY PRN PRN Reason: Constipation Melatonin (Melatonin 3 Mg Tablet) 6 mg PO BEDTIME PRN PRN Reason: insomnia Last Admin: 10/27/21 21:41 Dose: 6 mg Nicotine (Nicotine 21 Mg Patch.Td24) 21 mg TRANSDERMA DAILY [facility] Last Admin: 10/28/21 09:50 Dose: 21 mg Nicotine Polacrilex (Nicotine Polacrilex 2 Mg Gum) 2 mg BUCCAL Q2H PRN PRN Reason: Nicotine Cravings Last Admin: 10/26/21 21:33 Dose: 2 mg Olanzapine (Olanzapine 10 Mg Tablet) 20 mg PO BID [facility] Olanzapine (Olanzapine 5 Mg Tablet) 5 mg PO Q6H PRN PRN Reason: agitation Paliperidone Palmitate (Paliperidone Palmitate 234 Mg/1.5 Ml Syringe) 234 mg IM Q30D [facility] Last Admin: 10/24/21 01:14 Dose: Not Given Pharmacy Consult (Consult Rx Perform Med Rec) 1 each MISCELLANE ONCE PRN PRN Reason: Consult order Trazodone HCl (Trazodone Hcl 50 Mg Tablet) 50 mg PO BEDTIME PRN PRN Reason: Insomnia Allergies Allergies Allergy/AdvReac Type Severity Reaction Status Date / Time haloperidol [From Haldol] AdvReac Intermediate EPS Verified 08/21/21 11:47 Assessment & Plan Assessment & Plan (1) Schizoaffective disorder, bipolar type: Status: Acute Code(s): F25.0 - Schizoaffective disorder, bipolar type Plan 10/25/2021 resume his current medications. He was educated around his medications. 10/26: Continue current regimen and plans 10/27 continue current medications. 10/28 increase olanzapine to 20mg po BID. continue Invega Sustenna but he may benefit from different ROSS. I spent minutes with the patient and/or on the patient floor today, greater than?50% of which was spent counseling/coordinating care. Reason for contiued inpatient stay Substantial Risk for: harm to self and inability to function
[2021-10-28] MEDS: Nicotine Polacrilex 2 MG GUM BUCCAL (19:22)
[2021-10-28 19:50] VITALS: BP 156/88; PULSE 108; RESP 18; TEMP 36.4; O2SAT 96
[2021-10-28] MEDS: OLANZapine 5 MG TABLET PO (19:52)
[2021-10-28] MEDS: OLANZapine 10 MG TABLET 20 MG PO (19:53)
[2021-10-28] MEDS: traZODone HCL 50 MG TABLET PO (19:53)
[2021-10-28] MEDS: Divalproex Sodium ER 500 MG TAB.ER.24H 2000 MG PO (19:53)
[2021-10-28] MEDS: hydrOXYzine HCL 25 MG TABLET PO (19:53)
[2021-10-28] MEDS: Melatonin 3 MG TABLET 6 MG PO (19:53)
[2021-10-29] MEDS: traZODone HCL 50 MG TABLET PO (01:23)
[2021-10-29] MEDS: hydrOXYzine HCL 25 MG TABLET PO ×2 (01:24→20:23)
[2021-10-29] MEDS: Nicotine 21 MG PATCH.TD24 TRANSDERMA (08:38)
[2021-10-29] MEDS: OLANZapine 10 MG TABLET 20 MG PO ×2 (08:38→20:23)
[2021-10-29 09:06] VITALS: BP 155/69; PULSE 88; RESP 14; TEMP 36.4; O2SAT 99
--- NOTE | 2021-10-29 10:38 | P.PNPSI_ITS ---
Subjective Subjective Date of Service: 10/29/21 Reason For Visit: PSYCHOSIS / schizoaffective disorder Subjective Notes: Conditional Voluntary Interim History: Pt appears calmer, less reactive but continues to report pentecostal delusions of being the devil and God at the same time. He reports his senses can feel everything. He reports knowing who's with devil and who's with God. He denies SI/HI. He is sleeping through the night. No behavioral concerns. Medication Compliance: Yes Side effects from medications: No Review of Systems Review of Systems Constitutional : No Weight loss, No Fever, No Chills, No Fatigue, No Malaise ENT/Mouth : No sore throat, No Rhinorrhea Eyes: No Eye Pain, No Swelling, No Redness Cardiovascular : No Chest Pain, No SOB, No Dyspnea on Exertion, No Orthopnea, No Edema, No Palpitations Respiratory : No Cough, No Sputum, No Wheezing Gastrointestinal : No Nausea, No Vomiting, No Diarrhea, No Constipation, No abdominal Pain, No Hematochezia, No Melena Genitourinary : No Dysuria, No Urinary Frequency, No Hematuria, Musculoskeletal : No joint pain, No Myalgias, No Joint Swelling Skin : No Skin Lesions, No rash Neuro : No Weakness, No Numbness, No Dizziness, No Headache Psych : No Anxiety/Panic, No Depression, + AH,TH, No SI and HI All other systems reviewed and are negative Yes all other systems are reviewed and are negative Mental Status Exam Mental Status Exam Narrative: Appearance: casually groomed, fair hygiene in NAD Behavior:cooperative psychomotor: no agitation or retardation noted Speech:clear, normal rate/rhythm/volume, spontaneous Thought process:tangential, no loose associations Thought content:less voices, feeling tired, still paranoia, pentecostal delusions Mood: tired Affect: congruent, anxious SI:denies HI:denies VH/AH:+AH Delusions:paranoia, pentecostal delusions Insight/judgment:poor x 2. Memory/cog: alert, oriented x 3. Diagnostics Vital Signs (24Hr): Vital Signs - 24 hr 10/29/21 20:20 10/30/21 08:59 Temperature 97.8 F 97.9 F Pulse Rate 109 H 84 Blood Pressure 134/78 128/66 Pulse Oximetry 97 99 Oxygen Delivery Method Room Air Room Air BMI result Body Mass Index 28.8 Labs Results: 10/23/21 17:26 10/25/21 07:39 Medications Medications Current Medications Acetaminophen (Acetaminophen 325 Mg Tablet) 650 mg PO Q6H PRN PRN Reason: Headache/Pain Mild Scale (1-3) Al Hydroxide/Mg Hydroxide (Magnesium Hydrox/Alum Hydrox 30 Ml Oral.Susp) 30 ml PO Q6H PRN PRN Reason: Heartburn/Nausea Divalproex Sodium (Divalproex Sodium Er 500 Mg Tab.Er.24h) 2,000 mg PO BEDTIME [facility] Last Admin: 10/29/21 20:23 Dose: 2,000 mg Hydroxyzine HCl (Hydroxyzine Hcl 25 Mg Tablet) 25 mg PO Q6H PRN PRN Reason: Anxiety Last Admin: 10/29/21 20:23 Dose: 25 mg Magnesium Hydroxide (Milk Of Magnesia 30 Ml Oral.Susp) 30 ml PO DAILY PRN PRN Reason: Constipation Melatonin (Melatonin 3 Mg Tablet) 6 mg PO BEDTIME PRN PRN Reason: insomnia Last Admin: 10/29/21 20:23 Dose: 6 mg Nicotine (Nicotine 21 Mg Patch.Td24) 21 mg TRANSDERMA DAILY [facility] Last Admin: 10/30/21 08:52 Dose: 21 mg Nicotine Polacrilex (Nicotine Polacrilex 2 Mg Gum) 2 mg BUCCAL Q2H PRN PRN Reason: Nicotine Cravings Last Admin: 10/29/21 20:31 Dose: 2 mg Olanzapine (Olanzapine 10 Mg Tablet) 20 mg PO BID [facility] Last Admin: 10/30/21 08:52 Dose: 20 mg Olanzapine (Olanzapine 5 Mg Tablet) 5 mg PO Q6H PRN PRN Reason: agitation Last Admin: 10/28/21 19:52 Dose: 5 mg Paliperidone Palmitate (Paliperidone Palmitate 234 Mg/1.5 Ml Syringe) 234 mg IM Q30D [facility] Last Admin: 10/24/21 01:14 Dose: Not Given Pharmacy Consult (Consult Rx Perform Med Rec) 1 each MISCELLANE ONCE PRN PRN Reason: Consult order Trazodone HCl (Trazodone Hcl 50 Mg Tablet) 50 mg PO BEDTIME PRN PRN Reason: Insomnia Last Admin: 10/29/21 01:23 Dose: 50 mg Allergies Allergies Allergy/AdvReac Type Severity Reaction Status Date / Time haloperidol [From Haldol] AdvReac Intermediate EPS Verified 08/21/21 11:47 Assessment & Plan Assessment & Plan (1) Schizoaffective disorder, bipolar type: Status: Acute Code(s): F25.0 - Schizoaffective disorder, bipolar type Plan 10/25/2021 resume his current medications. He was educated around his medications. 10/26: Continue current regimen and plans 10/27 continue current medications. 10/28 increase olanzapine to 20mg po BID. continue Invega Sustenna but he may benefit from different ROSS. 10/29 continue current medication, but may consider clozaril as he has had 3 monotherapy failed trials. I spent minutes with the patient and/or on the patient floor today, greater than?50% of which was spent counseling/coordinating care. Reason for contiued inpatient stay Substantial Risk for: inability to function
[2021-10-29 20:20] VITALS: BP 134/78; PULSE 109; TEMP 36.6; O2SAT 97
[2021-10-29] MEDS: Melatonin 3 MG TABLET 6 MG PO (20:23)
[2021-10-29] MEDS: Divalproex Sodium ER 500 MG TAB.ER.24H 2000 MG PO (20:23)
[2021-10-29] MEDS: Nicotine Polacrilex 2 MG GUM BUCCAL (20:31)
[2021-10-30 07:00] VITALS: BMI 28.8
[2021-10-30] MEDS: Nicotine 21 MG PATCH.TD24 TRANSDERMA (08:52)
[2021-10-30] MEDS: OLANZapine 10 MG TABLET 20 MG PO ×2 (08:52→21:55)
[2021-10-30 08:59] VITALS: BP 128/66; PULSE 84; TEMP 36.6; O2SAT 99
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
[2021-10-30] MEDS: hydrOXYzine HCL 25 MG TABLET PO ×2 (17:53→21:57)
[2021-10-30] MEDS: Nicotine Polacrilex 2 MG GUM BUCCAL (19:50)
[2021-10-30 21:53] VITALS: BP 136/84; PULSE 88; TEMP 36.3; O2SAT 96
[2021-10-30] MEDS: Divalproex Sodium ER 500 MG TAB.ER.24H 2000 MG PO (21:55)
[2021-10-30] MEDS: traZODone HCL 50 MG TABLET PO (21:57)
--- NOTE | 2021-10-31 08:51 | HO.PSYCHPN ---
Subjective Subjective Date of Service: 10/31/21 Reason For Visit: PSYCHOSIS / schizoaffective disorder Subjective Notes: Conditional Voluntary Interim History: Pt continues with same buddhist delusions of mother referring to Latoya Jones gave him her child who is really the antichrist who is in his upper right quadrant, he is trying to contain there for the sake of humanity. He is tearful at times, pacing, anxious, less aggressive. No SI/HI. less AH. Medication Compliance: Yes Side effects from medications: No Attending Groups: No Review of Systems Review of Systems Constitutional : No Weight loss, No Fever, No Chills, No Fatigue, No Malaise ENT/Mouth : No sore throat, No Rhinorrhea Eyes: No Eye Pain, No Swelling, No Redness Cardiovascular : No Chest Pain, No SOB, No Dyspnea on Exertion, No Orthopnea, No Edema, No Palpitations Respiratory : No Cough, No Sputum, No Wheezing Gastrointestinal : No Nausea, No Vomiting, No Diarrhea, No Constipation, No abdominal Pain, No Hematochezia, No Melena Genitourinary : No Dysuria, No Urinary Frequency, No Hematuria, Musculoskeletal : No joint pain, No Myalgias, No Joint Swelling Skin : No Skin Lesions, No rash Neuro : No Weakness, No Numbness, No Dizziness, No Headache Psych : No Anxiety/Panic, No Depression, + AH,TH, No SI and HI All other systems reviewed and are negative Yes all other systems are reviewed and are negative Mental Status Exam Mental Status Exam Narrative: Appearance: casually groomed, fair hygiene in NAD Behavior:cooperative psychomotor: no agitation or retardation noted Speech:clear, normal rate/rhythm/volume, spontaneous Thought process:tangential, no loose associations Thought content:less voices, feeling tired, still paranoia, buddhist delusions Mood: tired Affect: congruent, anxious SI:denies HI:denies VH/AH:+AH Delusions:paranoia, buddhist delusions Insight/judgment:poor x 2. Memory/cog: alert, oriented x 3. Diagnostics Vital Signs (24Hr): Vital Signs - 24 hr 10/31/21 09:40 10/31/21 20:25 Temperature 97.9 F 98.1 F Pulse Rate 110 H 124 H Respiratory Rate 18 20 Blood Pressure 147/77 H 137/87 Pulse Oximetry 97 97 Oxygen Delivery Method Room Air Room Air BMI result Body Mass Index 28.8 Labs Results: 10/31/21 19:07 10/25/21 07:39 Labs: Laboratory Results - last 48 hr 10/31/21 19:07 WBC 9.0 RBC 4.38 L Hgb 14.3 Hct 41.6 L MCV 95.0 MCH 32.6 MCHC 34.4 RDW 11.7 Plt Count 279 MPV 10.1 Immature Gran % (Auto) 0.7 H Neut % (Auto) 67.2 Lymph % (Auto) 22.2 [place] % (Auto) 8.8 Eos % (Auto) 0.8 Baso % (Auto) 0.3 Lymph # (Auto) 2.0 [place] # (Auto) 0.8 Eos # (Auto) 0.1 Baso # (Auto) 0.0 Abs Immat Gran (auto) 0.06 H Absolute Neuts (auto) 6.1 Absolute Nucleated RBC 0.000 Nucleated RBC % (auto) 0.0 Medications Medications Current Medications Acetaminophen (Acetaminophen 325 Mg Tablet) 650 mg PO Q6H PRN PRN Reason: Headache/Pain Mild Scale (1-3) Al Hydroxide/Mg Hydroxide (Magnesium Hydrox/Alum Hydrox 30 Ml Oral.Susp) 30 ml PO Q6H PRN PRN Reason: Heartburn/Nausea Divalproex Sodium (Divalproex Sodium Er 500 Mg Tab.Er.24h) 2,000 mg PO BEDTIME [facility] Last Admin: 10/31/21 20:25 Dose: 2,000 mg Hydroxyzine HCl (Hydroxyzine Hcl 25 Mg Tablet) 25 mg PO Q6H PRN PRN Reason: Anxiety Last Admin: 10/31/21 20:25 Dose: 25 mg Magnesium Hydroxide (Milk Of Magnesia 30 Ml Oral.Susp) 30 ml PO DAILY PRN PRN Reason: Constipation Melatonin (Melatonin 3 Mg Tablet) 6 mg PO BEDTIME PRN PRN Reason: insomnia Last Admin: 10/31/21 20:26 Dose: 6 mg Nicotine (Nicotine 21 Mg Patch.Td24) 21 mg TRANSDERMA DAILY [facility] Last Admin: 10/31/21 09:51 Dose: 21 mg Nicotine Polacrilex (Nicotine Polacrilex 2 Mg Gum) 2 mg BUCCAL Q2H PRN PRN Reason: Nicotine Cravings Last Admin: 10/31/21 14:09 Dose: 2 mg Olanzapine (Olanzapine 10 Mg Tablet) 20 mg PO BID [facility] Last Admin: 10/31/21 20:25 Dose: 20 mg Olanzapine (Olanzapine 5 Mg Tablet) 5 mg PO Q6H PRN PRN Reason: agitation Last Admin: 10/31/21 20:25 Dose: 5 mg Paliperidone Palmitate (Paliperidone Palmitate 234 Mg/1.5 Ml Syringe) 234 mg IM Q30D [facility] Last Admin: 10/24/21 01:14 Dose: Not Given Pharmacy Consult (Consult Rx Perform Med Rec) 1 each MISCELLANE ONCE PRN PRN Reason: Consult order Trazodone HCl (Trazodone Hcl 50 Mg Tablet) 50 mg PO BEDTIME PRN PRN Reason: Insomnia Last Admin: 10/31/21 20:26 Dose: 50 mg Allergies Allergies Allergy/AdvReac Type Severity Reaction Status Date / Time haloperidol [From Haldol] AdvReac Intermediate EPS Verified 08/21/21 11:47 Assessment & Plan Assessment & Plan (1) Schizoaffective disorder, bipolar type: Status: Acute Code(s): F25.0 - Schizoaffective disorder, bipolar type Plan 10/25/2021 resume his current medications. He was educated around his medications. 10/26: Continue current regimen and plans 10/27 continue current medications. 10/28 increase olanzapine to 20mg po BID. continue Invega Sustenna but he may benefit from different ROSS. 10/29 continue current medication, but may consider clozaril as he has had 3 monotherapy failed trials. 10/30 discussed starting clozaril. taper off olanzapine. 10/31 try clozaril- I spent minutes with the patient and/or on the patient floor today, greater than?50% of which was spent counseling/coordinating care. Reason for contiued inpatient stay Substantial Risk for: harm to others and inability to function
[2021-10-31 09:40] VITALS: BP 147/77; PULSE 110; RESP 18; TEMP 36.6; O2SAT 97
[2021-10-31] MEDS: Nicotine 21 MG PATCH.TD24 TRANSDERMA (09:51)
[2021-10-31] MEDS: OLANZapine 10 MG TABLET 20 MG PO ×2 (09:52→20:25)
[2021-10-31] MEDS: Nicotine Polacrilex 2 MG GUM BUCCAL (14:09)
[2021-10-31 19:26] LABS: MANUAL DIFF FLAG NO
[2021-10-31 19:39] LABS: Basophils Percent Auto 0.3 % (0-2); Eosinophils Absolute Auto 0.1 X10*3/uL (0.0-0.4); Eosinophils Percent Auto 0.8 % (0-4); Hematocrit 41.6 % (42.0-52.0); Hemoglobin 14.3 g/dl (14.0-18.0); Imm Gran Abs Auto 0.06 X10*3/uL (0.00-0.03); Imm Gran Pct Auto 0.7 % (0.0-0.4); Lymphocytes Percent Auto 22.2 % (20-40); Mean Corpuscular HGB Conc 34.4 g/dl (31.0-36.0); Mean Corpuscular Hemoglobin 32.6 pg (27.0-33.0); Mean Platelet Volume 10.1 fL (9.4-12.4); Monocytes Absolute Auto 0.8 X10*3/uL (0.1-1.2); Monocytes Percent Auto 8.8 % (2-11); Neutrophils Absolute Auto 6.1 x10*3/uL (2.0-8.3); Neutrophils Percent Auto 67.2 % (45-73); Platelet Count 279 X10*3/uL (160-400); Red Blood Count 4.38 X10*6/uL (4.60-5.80); Red Cell Distribution Width 11.7 % (11.0-16.0)
[2021-10-31 20:25] VITALS: BP 137/87; PULSE 124; RESP 20; TEMP 36.7; O2SAT 97
[2021-10-31] MEDS: Divalproex Sodium ER 500 MG TAB.ER.24H 2000 MG PO (20:25)
[2021-10-31] MEDS: hydrOXYzine HCL 25 MG TABLET PO (20:25)
[2021-10-31] MEDS: OLANZapine 5 MG TABLET PO (20:25)
[2021-10-31] MEDS: Melatonin 3 MG TABLET 6 MG PO (20:26)
[2021-10-31] MEDS: traZODone HCL 50 MG TABLET PO (20:26)
--- NOTE | 2021-11-01 | ECG_ITS ---
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 Rate : 090 BPM Atrial Rate : 090 BPM P-R Int : 140 ms QRS Dur : 076 ms QT Int : 318 ms P-R-T Axes : 042 112 038 degrees QTc Int : 389 ms Normal sinus rhythm Right axis deviation Abnormal ECG When compared with ECG of 03-OCT-2021 18:15, No significant change was found Referred By: Rosalind Appiah Electronically Signed By:YARELY TAN
--- NOTE | 2021-11-01 09:25 | HO.PSYCHPN ---
Subjective Subjective Date of Service: 11/01/21 Reason For Visit: PSYCHOSIS / schizoaffective disorder Subjective Notes: Rios Warning and Conditional Voluntary Interim History: I spoke with pt this morning. Says he is doing okay. Sleep is okay, I have so much energy built up. Tolerating clozapine trial. Continues to endorse delusions, grandiose in nature, says he has been talking to aliens. Says he hears voices that are saying that I have a female soul. Reports having anxiety because nika been making contracts with the luciano but says the devil is misunderstood and his contracts are about peace and love and unity. Also says he can talk to animals and believes he is with the son of the luciano, if i lose him im gonna be so empty inside, thats a piece of my soul. He is labile, tearful and laughing during interview. Feels safe here, denies SI/SIB/HI. Medication Compliance: Yes Side effects from medications: No Attending Groups: Intermittent Review of Systems Acute medical concerns: No Medical Review of Systems: unchanged Mental Status Exam Mental Status Exam Narrative: Appearance: casually groomed, fair hygiene in NAD Behavior:cooperative psychomotor: no agitation or retardation noted Speech:clear, normal rate/rhythm/volume, spontaneous Thought process:tangential, no loose associations Thought content:less voices, feeling tired, still paranoia, confucianism delusions Mood: okay Affect: congruent, anxious SI:denies HI:denies VH/AH:+AH Delusions:paranoia, confucianism delusions Insight/judgment:poor x 2. Memory/cog: alert, oriented x 3. Diagnostics Vital Signs (24Hr): Vital Signs - 24 hr 10/31/21 09:40 10/31/21 20:25 Temperature 97.9 F 98.1 F Pulse Rate 110 H 124 H Respiratory Rate 18 20 Blood Pressure 147/77 H 137/87 Pulse Oximetry 97 97 Oxygen Delivery Method Room Air Room Air BMI result Body Mass Index 28.8 Labs Results: 10/31/21 19:07 10/25/21 07:39 Labs: Laboratory Results - last 48 hr 10/31/21 19:07 WBC 9.0 RBC 4.38 L Hgb 14.3 Hct 41.6 L MCV 95.0 MCH 32.6 MCHC 34.4 RDW 11.7 Plt Count 279 MPV 10.1 Immature Gran % (Auto) 0.7 H Neut % (Auto) 67.2 Lymph % (Auto) 22.2 [place] % (Auto) 8.8 Eos % (Auto) 0.8 Baso % (Auto) 0.3 Lymph # (Auto) 2.0 [place] # (Auto) 0.8 Eos # (Auto) 0.1 Baso # (Auto) 0.0 Abs Immat Gran (auto) 0.06 H Absolute Neuts (auto) 6.1 Absolute Nucleated RBC 0.000 Nucleated RBC % (auto) 0.0 Medications Medications Current Medications Acetaminophen (Acetaminophen 325 Mg Tablet) 650 mg PO Q6H PRN PRN Reason: Headache/Pain Mild Scale (1-3) Al Hydroxide/Mg Hydroxide (Magnesium Hydrox/Alum Hydrox 30 Ml Oral.Susp) 30 ml PO Q6H PRN PRN Reason: Heartburn/Nausea Clozapine (Clozapine 25 Mg Tablet) 25 mg PO BID [facility] Divalproex Sodium (Divalproex Sodium Er 500 Mg Tab.Er.24h) 2,000 mg PO BEDTIME [facility] Last Admin: 10/31/21 20:25 Dose: 2,000 mg Hydroxyzine HCl (Hydroxyzine Hcl 25 Mg Tablet) 25 mg PO Q6H PRN PRN Reason: Anxiety Last Admin: 10/31/21 20:25 Dose: 25 mg Magnesium Hydroxide (Milk Of Magnesia 30 Ml Oral.Susp) 30 ml PO DAILY PRN PRN Reason: Constipation Melatonin (Melatonin 3 Mg Tablet) 6 mg PO BEDTIME PRN PRN Reason: insomnia Last Admin: 10/31/21 20:26 Dose: 6 mg Nicotine (Nicotine 21 Mg Patch.Td24) 21 mg TRANSDERMA DAILY [facility] Last Admin: 10/31/21 09:51 Dose: 21 mg Nicotine Polacrilex (Nicotine Polacrilex 2 Mg Gum) 2 mg BUCCAL Q2H PRN PRN Reason: Nicotine Cravings Last Admin: 10/31/21 14:09 Dose: 2 mg Olanzapine (Olanzapine 5 Mg Tablet) 5 mg PO Q6H PRN PRN Reason: agitation Last Admin: 10/31/21 20:25 Dose: 5 mg Olanzapine (Olanzapine 10 Mg Tablet) 10 mg PO BID [facility] Paliperidone Palmitate (Paliperidone Palmitate 234 Mg/1.5 Ml Syringe) 234 mg IM Q30D [facility] Last Admin: 10/24/21 01:14 Dose: Not Given Pharmacy Consult (Consult Rx Perform Med Rec) 1 each MISCELLANE ONCE PRN PRN Reason: Consult order Senna/Docusate Sodium (Sennosides/Docusate Sodium Tablet) 1 tab PO BID [facility] Trazodone HCl (Trazodone Hcl 50 Mg Tablet) 50 mg PO BEDTIME PRN PRN Reason: Insomnia Last Admin: 10/31/21 20:26 Dose: 50 mg Allergies Allergies Allergy/AdvReac Type Severity Reaction Status Date / Time haloperidol [From Haldol] AdvReac Intermediate EPS Verified 08/21/21 11:47 Assessment & Plan Assessment & Plan (1) Schizoaffective disorder, bipolar type: Status: Acute Code(s): F25.0 - Schizoaffective disorder, bipolar type Plan 10/25/2021 resume his current medications. He was educated around his medications. 10/26: Continue current regimen and plans 10/27 continue current medications. 10/28 increase olanzapine to 20mg po BID. continue Invega Sustenna but he may benefit from different ROSS. 10/29 continue current medication, but may consider clozaril as he has had 3 monotherapy failed trials. 10/30 discussed starting clozaril. taper off olanzapine. 10/31 try clozaril- 11/01 reviewed labs, continue clozapine trial at 25 mg BID, will increase in 3-4 days I spent minutes with the patient and/or on the patient floor today, greater than?50% of which was spent counseling/coordinating care. Patient educated on: diagnosis and medication risk/benefits Reason for contiued inpatient stay Substantial Risk for: inability to function, rapid decompensation and med/psych decompensation
[2021-11-01 09:50] VITALS: BP 139/102; PULSE 112; RESP 18; TEMP 36.7; O2SAT 98
[2021-11-01] MEDS: OLANZapine 10 MG TABLET PO ×2 (09:55→21:07)
[2021-11-01] MEDS: Nicotine 21 MG PATCH.TD24 TRANSDERMA (09:55)
[2021-11-01] MEDS: Sennosides/Docusate Sodium TABLET 1 TAB PO ×2 (09:55→21:07)
[2021-11-01] MEDS: Divalproex Sodium ER 500 MG TAB.ER.24H 2000 MG PO (21:06)
[2021-11-01 21:07] VITALS: BP 162/94; PULSE 112; RESP 20; TEMP 36.7; O2SAT 97
[2021-11-01] MEDS: Nicotine Polacrilex 2 MG GUM BUCCAL (21:07)
[2021-11-01] MEDS: traZODone HCL 50 MG TABLET PO (21:07)
[2021-11-01] MEDS: cloZAPine 25 MG TABLET PO (21:07)
[2021-11-01] MEDS: Melatonin 3 MG TABLET 6 MG PO (21:07)
[2021-11-01] MEDS: hydrOXYzine HCL 25 MG TABLET PO (21:07)
[2021-11-01] MEDS: OLANZapine 5 MG TABLET PO (21:07)
[2021-11-02 09:30] VITALS: BP 111/72; PULSE 92; RESP 16; TEMP 36.7; O2SAT 96
[2021-11-02] MEDS: OLANZapine 10 MG TABLET PO ×2 (09:33→21:00)
[2021-11-02] MEDS: Sennosides/Docusate Sodium TABLET 1 TAB PO ×2 (09:33→21:01)
[2021-11-02] MEDS: cloZAPine 25 MG TABLET PO ×2 (09:33→21:00)
[2021-11-02] MEDS: Nicotine 21 MG PATCH.TD24 TRANSDERMA (09:35)
--- NOTE | 2021-11-02 10:55 | HO.PSYCHPN ---
Subjective Subjective Date of Service: 11/02/21 Reason For Visit: PSYCHOSIS / schizoaffective disorder Subjective Notes: Rios Warning Interim History: Says he is feeling a little bit better. He slept well, energy is good. Mood is rebellious. Still delusional, I want to go to war with the evil one. Feels like im controlling something good outside of here while im in here and that he is giving good energy to [place]. Feels safe. Denies SI/SIB/HI. No questions or concerns. Medication Compliance: Yes Side effects from medications: No Attending Groups: Intermittent Review of Systems Acute medical concerns: No Medical Review of Systems: unchanged Mental Status Exam Mental Status Exam Narrative: Appearance: casually groomed, fair hygiene in NAD Behavior:cooperative psychomotor: no agitation or retardation noted Speech:clear, normal rate/rhythm/volume, spontaneous Thought process:tangential, no loose associations Thought content:less voices, feeling tired, still paranoia, mu-ism delusions Mood: better Affect: congruent, labile SI:denies HI:denies VH/AH:+AH Delusions:paranoia, mu-ism delusions Insight/judgment:poor x 2. Memory/cog: alert, oriented x 3. Diagnostics Vital Signs (24Hr): Vital Signs - 24 hr 11/01/21 21:07 11/02/21 09:30 Temperature 98.0 F 98.1 F Pulse Rate 112 H 92 Respiratory Rate 20 16 Blood Pressure 162/94 H 111/72 Pulse Oximetry 97 96 Oxygen Delivery Method Room Air Room Air BMI result Body Mass Index 28.8 Labs Results: 10/31/21 19:07 10/25/21 07:39 Labs: Laboratory Results - last 48 hr 10/31/21 19:07 WBC 9.0 RBC 4.38 L Hgb 14.3 Hct 41.6 L MCV 95.0 MCH 32.6 MCHC 34.4 RDW 11.7 Plt Count 279 MPV 10.1 Immature Gran % (Auto) 0.7 H Neut % (Auto) 67.2 Lymph % (Auto) 22.2 [place] % (Auto) 8.8 Eos % (Auto) 0.8 Baso % (Auto) 0.3 Lymph # (Auto) 2.0 [place] # (Auto) 0.8 Eos # (Auto) 0.1 Baso # (Auto) 0.0 Abs Immat Gran (auto) 0.06 H Absolute Neuts (auto) 6.1 Absolute Nucleated RBC 0.000 Nucleated RBC % (auto) 0.0 Medications Medications Current Medications Acetaminophen (Acetaminophen 325 Mg Tablet) 650 mg PO Q6H PRN PRN Reason: Headache/Pain Mild Scale (1-3) Al Hydroxide/Mg Hydroxide (Magnesium Hydrox/Alum Hydrox 30 Ml Oral.Susp) 30 ml PO Q6H PRN PRN Reason: Heartburn/Nausea Clozapine (Clozapine 25 Mg Tablet) 25 mg PO BID [facility] Last Admin: 11/02/21 09:33 Dose: 25 mg Divalproex Sodium (Divalproex Sodium Er 500 Mg Tab.Er.24h) 2,000 mg PO BEDTIME [facility] Last Admin: 11/01/21 21:06 Dose: 2,000 mg Hydroxyzine HCl (Hydroxyzine Hcl 25 Mg Tablet) 25 mg PO Q6H PRN PRN Reason: Anxiety Last Admin: 11/01/21 21:07 Dose: 25 mg Magnesium Hydroxide (Milk Of Magnesia 30 Ml Oral.Susp) 30 ml PO DAILY PRN PRN Reason: Constipation Melatonin (Melatonin 3 Mg Tablet) 6 mg PO BEDTIME PRN PRN Reason: insomnia Last Admin: 11/01/21 21:07 Dose: 6 mg Nicotine (Nicotine 21 Mg Patch.Td24) 21 mg TRANSDERMA DAILY [facility] Last Admin: 11/02/21 09:35 Dose: 21 mg Nicotine Polacrilex (Nicotine Polacrilex 2 Mg Gum) 2 mg BUCCAL Q2H PRN PRN Reason: Nicotine Cravings Last Admin: 11/01/21 21:07 Dose: 2 mg Olanzapine (Olanzapine 5 Mg Tablet) 5 mg PO Q6H PRN PRN Reason: agitation Last Admin: 11/01/21 21:07 Dose: 5 mg Olanzapine (Olanzapine 10 Mg Tablet) 10 mg PO BID [facility] Last Admin: 11/02/21 09:33 Dose: 10 mg Paliperidone Palmitate (Paliperidone Palmitate 234 Mg/1.5 Ml Syringe) 234 mg IM Q30D [facility] Last Admin: 10/24/21 01:14 Dose: Not Given Pharmacy Consult (Consult Rx Perform Med Rec) 1 each MISCELLANE ONCE PRN PRN Reason: Consult order Senna/Docusate Sodium (Sennosides/Docusate Sodium Tablet) 1 tab PO BID [facility] Last Admin: 11/02/21 09:33 Dose: 1 tab Trazodone HCl (Trazodone Hcl 50 Mg Tablet) 50 mg PO BEDTIME PRN PRN Reason: Insomnia Last Admin: 11/01/21 21:07 Dose: 50 mg Allergies Allergies Allergy/AdvReac Type Severity Reaction Status Date / Time haloperidol [From Haldol] AdvReac Intermediate EPS Verified 08/21/21 11:47 Assessment & Plan Assessment & Plan (1) Schizoaffective disorder, bipolar type: Status: Acute Code(s): F25.0 - Schizoaffective disorder, bipolar type Plan 10/25/2021 resume his current medications. He was educated around his medications. 10/26: Continue current regimen and plans 10/27 continue current medications. 10/28 increase olanzapine to 20mg po BID. continue Invega Sustenna but he may benefit from different ROSS. 10/29 continue current medication, but may consider clozaril as he has had 3 monotherapy failed trials. 10/30 discussed starting clozaril. taper off olanzapine. 10/31 try clozaril- 11/01 reviewed labs, continue clozapine trial at 25 mg BID, will increase in 3-4 days 11/02 no med changes, pt tolerating clozapine I spent minutes with the patient and/or on the patient floor today, greater than?50% of which was spent counseling/coordinating care. Patient educated on: medication risk/benefits and therapeutic strategies Reason for contiued inpatient stay Substantial Risk for: inability to function, rapid decompensation and med/psych decompensation
[2021-11-02] MEDS: Nicotine Polacrilex 2 MG GUM BUCCAL ×2 (12:32→17:05)
[2021-11-02 20:00] VITALS: BP 136/83; PULSE 112; RESP 18; TEMP 36.4; O2SAT 97
[2021-11-02] MEDS: Divalproex Sodium ER 500 MG TAB.ER.24H 2000 MG PO (20:59)
--- NOTE | 2021-11-02 22:37 | PC.NURSE ---
Patient requested to sign a three day notice (intent to leave), stating that I'm ready to leave right now so I need to sign a notice, I'm good to go. Patient also mentions missing his mother. Patient signs the notice today 11/02/21 at 8:15pm, witnessed by this nurse. Patient informed that due to the holiday weekend, discharge will prospectively be 11/06/21.
[2021-11-03 09:15] VITALS: BP 151/97; PULSE 129; RESP 18; TEMP 36.7; O2SAT 95
[2021-11-03] MEDS: cloZAPine 25 MG TABLET PO ×2 (09:22→20:05)
[2021-11-03] MEDS: OLANZapine 10 MG TABLET PO ×2 (09:22→20:06)
[2021-11-03] MEDS: Sennosides/Docusate Sodium TABLET 1 TAB PO ×2 (09:22→20:06)
[2021-11-03] MEDS: Nicotine 21 MG PATCH.TD24 TRANSDERMA (12:38)
[2021-11-03] MEDS: Milk of Magnesia 30 ML ORAL.SUSP PO (12:38)
[2021-11-03] MEDS: Nicotine Polacrilex 2 MG GUM BUCCAL (12:39)
--- NOTE | 2021-11-03 12:44 | HO.PSYCHPN ---
Subjective Subjective Date of Service: 11/03/21 Reason For Visit: PSYCHOSIS / schizoaffective disorder Subjective Notes: Rios Warning and Conditional Voluntary Healthcare Proxy: No Guardianship: No Medical Problems Affecting Mental Status: No Interim History: Says he wants a cigarette. Pt is delusional, thinking about aliens. He slept pretty better last night, didnt toss and turn as much last night, I was able to lay there and sleep. Mood is pretty good, normal basically. Pt is still delusional, paranoid, says is there a secret you guys are hiding? and I feel like you guys are planning an attack on the throne, the one that the devil is sitting on. Then says we're gonna attack the devil's throne, says he is the leader and there is a loyd taking place in [place], in another dimension. Pt has insight and is pleasant, less labile, says the voices are gone, I know its the pills. Says the meds are pretty good. Medication Compliance: Yes Side effects from medications: No Attending Groups: Intermittent Review of Systems Acute medical concerns: No Medical Review of Systems: unchanged Mental Status Exam Mental Status Exam Narrative: Appearance: casually groomed, fair hygiene in NAD Behavior:cooperative psychomotor: no agitation or retardation noted Speech:clear, normal rate/rhythm/volume, spontaneous Thought process:tangential, no loose associations Thought content:less voices, feeling tired, still paranoia, yarsani delusions Mood: pretty good Affect: congruent, anxious SI:denies HI:denies VH/AH:+AH Delusions:paranoia, yarsani delusions Insight/judgment:poor x 2. Memory/cog: alert, oriented x 3. Diagnostics Vital Signs (24Hr): Vital Signs - 24 hr 11/02/21 20:00 11/03/21 09:15 Temperature 97.6 F 98.0 F Pulse Rate 112 H 129 H Respiratory Rate 18 18 Blood Pressure 136/83 151/97 H Pulse Oximetry 97 95 Oxygen Delivery Method Room Air Room Air BMI result Body Mass Index 28.8 Labs Results: 10/31/21 19:07 10/25/21 07:39 Medications Medications Current Medications Acetaminophen (Acetaminophen 325 Mg Tablet) 650 mg PO Q6H PRN PRN Reason: Headache/Pain Mild Scale (1-3) Al Hydroxide/Mg Hydroxide (Magnesium Hydrox/Alum Hydrox 30 Ml Oral.Susp) 30 ml PO Q6H PRN PRN Reason: Heartburn/Nausea Clozapine (Clozapine 25 Mg Tablet) 25 mg PO BID [facility] Last Admin: 11/03/21 09:22 Dose: 25 mg Divalproex Sodium (Divalproex Sodium Er 500 Mg Tab.Er.24h) 2,000 mg PO BEDTIME [facility] Last Admin: 11/02/21 20:59 Dose: 2,000 mg Hydroxyzine HCl (Hydroxyzine Hcl 25 Mg Tablet) 25 mg PO Q6H PRN PRN Reason: Anxiety Last Admin: 11/01/21 21:07 Dose: 25 mg Magnesium Hydroxide (Milk Of Magnesia 30 Ml Oral.Susp) 30 ml PO DAILY PRN PRN Reason: Constipation Last Admin: 11/03/21 12:38 Dose: 30 ml Melatonin (Melatonin 3 Mg Tablet) 6 mg PO BEDTIME PRN PRN Reason: insomnia Last Admin: 11/01/21 21:07 Dose: 6 mg Nicotine (Nicotine 21 Mg Patch.Td24) 21 mg TRANSDERMA DAILY [facility] Last Admin: 11/03/21 12:38 Dose: 21 mg Nicotine Polacrilex (Nicotine Polacrilex 2 Mg Gum) 2 mg BUCCAL Q2H PRN PRN Reason: Nicotine Cravings Last Admin: 11/03/21 12:39 Dose: 2 mg Olanzapine (Olanzapine 5 Mg Tablet) 5 mg PO Q6H PRN PRN Reason: agitation Last Admin: 11/01/21 21:07 Dose: 5 mg Olanzapine (Olanzapine 10 Mg Tablet) 10 mg PO BID [facility] Last Admin: 11/03/21 09:22 Dose: 10 mg Paliperidone Palmitate (Paliperidone Palmitate 234 Mg/1.5 Ml Syringe) 234 mg IM Q30D [facility] Last Admin: 10/24/21 01:14 Dose: Not Given Pharmacy Consult (Consult Rx Perform Med Rec) 1 each MISCELLANE ONCE PRN PRN Reason: Consult order Senna/Docusate Sodium (Sennosides/Docusate Sodium Tablet) 1 tab PO BID [facility] Last Admin: 11/03/21 09:22 Dose: 1 tab Trazodone HCl (Trazodone Hcl 50 Mg Tablet) 50 mg PO BEDTIME PRN PRN Reason: Insomnia Last Admin: 11/01/21 21:07 Dose: 50 mg Allergies Allergies Allergy/AdvReac Type Severity Reaction Status Date / Time haloperidol [From Haldol] AdvReac Intermediate EPS Verified 08/21/21 11:47 Assessment & Plan Assessment & Plan (1) Schizoaffective disorder, bipolar type: Status: Acute Code(s): F25.0 - Schizoaffective disorder, bipolar type Plan 10/25/2021 resume his current medications. He was educated around his medications. 10/26: Continue current regimen and plans 10/27 continue current medications. 10/28 increase olanzapine to 20mg po BID. continue Invega Sustenna but he may benefit from different ROSS. 10/29 continue current medication, but may consider clozaril as he has had 3 monotherapy failed trials. 10/30 discussed starting clozaril. taper off olanzapine. 10/31 try clozaril- 11/01 reviewed labs, continue clozapine trial at 25 mg BID, will increase in 3-4 days 11/02 no med changes, pt tolerating clozapine, still labile and delusional 11/03 pt reports less AH, increased insight I spent minutes with the patient and/or on the patient floor today, greater than?50% of which was spent counseling/coordinating care. Patient educated on: medication risk/benefits and therapeutic strategies Reason for contiued inpatient stay Substantial Risk for: inability to function, rapid decompensation and med/psych decompensation
[2021-11-03] MEDS: Divalproex Sodium ER 500 MG TAB.ER.24H 2000 MG PO (20:05)
[2021-11-03] MEDS: Melatonin 3 MG TABLET 6 MG PO (20:06)
[2021-11-03] MEDS: hydrOXYzine HCL 25 MG TABLET PO (20:06)
[2021-11-03 20:15] VITALS: BP 132/78; PULSE 125; RESP 18; TEMP 36.6; O2SAT 97
[2021-11-04] MEDS: Nicotine 21 MG PATCH.TD24 TRANSDERMA (08:30)
[2021-11-04] MEDS: cloZAPine 25 MG TABLET PO (08:30)
[2021-11-04] MEDS: OLANZapine 10 MG TABLET PO (08:30)
[2021-11-04] MEDS: Sennosides/Docusate Sodium TABLET 1 TAB PO ×2 (08:30→21:22)
[2021-11-04 08:45] VITALS: BP 131/91; PULSE 88; RESP 14; TEMP 36.6; O2SAT 99
--- NOTE | 2021-11-04 13:55 | P.PNPSI_ITS ---
Subjective Subjective Date of Service: 11/04/21 Reason For Visit: PSYCHOSIS / schizoaffective disorder Subjective Notes: Conditional Voluntary and 3 Day Interim History: Pr reports less AH. However, he continues to report orthodox delusions of being with Latoya Karen's child, who he has to contain to prevent this soul entity to destroy the world. He reports he feels better so signed 3 day notice. He denies SI/HI. He was encouraged to retract 3 day but states so far feels better. He states he wants to stay with his mother and hopes that he is discha rge soon. He is taking medications as prescribed. Medication Compliance: Yes Side effects from medications: No Review of Systems Review of Systems Constitutional : No Weight loss, No Fever, No Chills, No Fatigue, No Malaise ENT/Mouth : No sore throat, No Rhinorrhea Eyes: No Eye Pain, No Swelling, No Redness Cardiovascular : No Chest Pain, No SOB, No Dyspnea on Exertion, No Orthopnea, No Edema, No Palpitations Respiratory : No Cough, No Sputum, No Wheezing Gastrointestinal : No Nausea, No Vomiting, No Diarrhea, No Constipation, No abdominal Pain, No Hematochezia, No Melena Genitourinary : No Dysuria, No Urinary Frequency, No Hematuria, Musculoskeletal : No joint pain, No Myalgias, No Joint Swelling Skin : No Skin Lesions, No rash Neuro : No Weakness, No Numbness, No Dizziness, No Headache Psych : No Anxiety/Panic, No Depression, + AH,TH, No SI and HI All other systems reviewed and are negative Yes all other systems are reviewed and are negative Mental Status Exam Mental Status Exam Narrative: Appearance: casually groomed, fair hygiene in NAD Behavior:cooperative psychomotor: no agitation or retardation noted Speech:clear, normal rate/rhythm/volume, spontaneous Thought process:tangential, no loose associations Thought content:less voices, feeling tired, still paranoia, orthodox delusions Mood: pretty good Affect: congruent, anxious SI:denies HI:denies VH/AH:+AH Delusions:paranoia, orthodox delusions Insight/judgment:poor x 2. Memory/cog: alert, oriented x 3. Diagnostics Vital Signs (24Hr): Vital Signs - 24 hr 11/03/21 20:15 11/04/21 08:45 Temperature 97.9 F 97.8 F Pulse Rate 125 H 88 Respiratory Rate 18 14 Blood Pressure 132/78 131/91 H Pulse Oximetry 97 99 Oxygen Delivery Method Room Air Room Air BMI result Body Mass Index 28.8 Labs Results: 10/31/21 19:07 10/25/21 07:39 Medications Medications Current Medications Acetaminophen (Acetaminophen 325 Mg Tablet) 650 mg PO Q6H PRN PRN Reason: Headache/Pain Mild Scale (1-3) Al Hydroxide/Mg Hydroxide (Magnesium Hydrox/Alum Hydrox 30 Ml Oral.Susp) 30 ml PO Q6H PRN PRN Reason: Heartburn/Nausea Clozapine (Clozapine 25 Mg Tablet) 50 mg PO BID [facility] Divalproex Sodium (Divalproex Sodium Er 500 Mg Tab.Er.24h) 2,000 mg PO BEDTIME [facility] Last Admin: 11/03/21 20:05 Dose: 2,000 mg Hydroxyzine HCl (Hydroxyzine Hcl 25 Mg Tablet) 25 mg PO Q6H PRN PRN Reason: Anxiety Last Admin: 11/03/21 20:06 Dose: 25 mg Magnesium Hydroxide (Milk Of Magnesia 30 Ml Oral.Susp) 30 ml PO DAILY PRN PRN Reason: Constipation Last Admin: 11/03/21 12:38 Dose: 30 ml Melatonin (Melatonin 3 Mg Tablet) 6 mg PO BEDTIME PRN PRN Reason: insomnia Last Admin: 11/03/21 20:06 Dose: 6 mg Nicotine (Nicotine 21 Mg Patch.Td24) 21 mg TRANSDERMA DAILY [facility] Last Admin: 11/04/21 08:30 Dose: 21 mg Nicotine Polacrilex (Nicotine Polacrilex 2 Mg Gum) 2 mg BUCCAL Q2H PRN PRN Reason: Nicotine Cravings Last Admin: 11/03/21 12:39 Dose: 2 mg Olanzapine (Olanzapine 5 Mg Tablet) 5 mg PO Q6H PRN PRN Reason: agitation Last Admin: 11/01/21 21:07 Dose: 5 mg Paliperidone Palmitate (Paliperidone Palmitate 234 Mg/1.5 Ml Syringe) 234 mg IM Q30D [facility] Last Admin: 10/24/21 01:14 Dose: Not Given Pharmacy Consult (Consult Rx Perform Med Rec) 1 each MISCELLANE ONCE PRN PRN Reason: Consult order Senna/Docusate Sodium (Sennosides/Docusate Sodium Tablet) 1 tab PO BID [facility] Last Admin: 11/04/21 08:30 Dose: 1 tab Trazodone HCl (Trazodone Hcl 50 Mg Tablet) 50 mg PO BEDTIME PRN PRN Reason: Insomnia Last Admin: 11/01/21 21:07 Dose: 50 mg Allergies Allergies Allergy/AdvReac Type Severity Reaction Status Date / Time haloperidol [From Haldol] AdvReac Intermediate EPS Verified 08/21/21 11:47 lorazepam AdvReac Unknown Unverified 11/03/21 12:52 Assessment & Plan Assessment & Plan (1) Schizoaffective disorder, bipolar type: Status: Acute Code(s): F25.0 - Schizoaffective disorder, bipolar type Plan 10/25/2021 resume his current medications. He was educated around his medications. 10/26: Continue current regimen and plans 10/27 continue current medications. 10/28 increase olanzapine to 20mg po BID. continue Invega Sustenna but he may benefit from different ROSS. 10/29 continue current medication, but may consider clozaril as he has had 3 monotherapy failed trials. 10/30 discussed starting clozaril. taper off olanzapine. 10/31 try clozaril- 11/01 reviewed labs, continue clozapine trial at 25 mg BID, will increase in 3-4 days 11/02 no med changes, pt tolerating clozapine, still labile and delusional 11/03 pt reports less AH, increased insight 11/04 less Ah but continues to present with significant orthodox delusions and being with antichrist that he has to contain. increase clozaril to 50mg po BID. d/c olanzapine. I spent _25 minutes with the patient and/or on the patient floor today, gre ater than?50% of which was spent counseling/coordinating care. Reason for contiued inpatient stay Substantial Risk for: inability to function
[2021-11-04] MEDS: polyethylene glycoL 3350 17 GM POWD.PACK PO (14:15)
[2021-11-04] MEDS: Nicotine Polacrilex 2 MG GUM BUCCAL (16:17)
[2021-11-04] MEDS: cloZAPine 25 MG TABLET 50 MG PO (21:22)
[2021-11-04] MEDS: Divalproex Sodium ER 500 MG TAB.ER.24H 2000 MG PO (21:22)
[2021-11-04] MEDS: traZODone HCL 50 MG TABLET PO (21:23)
[2021-11-04] MEDS: Melatonin 3 MG TABLET 6 MG PO (21:23)
[2021-11-04] MEDS: hydrOXYzine HCL 25 MG TABLET PO (21:23)
[2021-11-04 21:29] VITALS: BP 138/81; PULSE 111; TEMP 36.8; O2SAT 95
[2021-11-05] MEDS: Nicotine 21 MG PATCH.TD24 TRANSDERMA (08:33)
[2021-11-05] MEDS: polyethylene glycoL 3350 17 GM POWD.PACK PO (08:33)
[2021-11-05] MEDS: Sennosides/Docusate Sodium TABLET 1 TAB PO ×2 (08:33→21:28)
[2021-11-05] MEDS: cloZAPine 25 MG TABLET 50 MG PO ×2 (08:33→21:29)
[2021-11-05 09:01] VITALS: BP 126/59; PULSE 65; RESP 16; TEMP 36.4; O2SAT 96
[2021-11-05] MEDS: Nicotine Polacrilex 2 MG GUM BUCCAL (11:55)
--- NOTE | 2021-11-05 16:19 | HO.PSYCHPN ---
Subjective Subjective Date of Service: 11/05/21 Reason For Visit: PSYCHOSIS / schizoaffective disorder Subjective Notes: 3 Day Interim History: Pt reports that he feels better, because he hears less AH, and is calmer. He continues to report that mother referring to lorenza Jones gave him spirit, antichrist and he has to contain him. He continues to report that he knows who is with the devil and who is with God. He continues to believe that he has mission to get balance in the world and follow his spiritual mission. Per staff, sleep is poor. pt reluctant to retract 3 day notice. Medication Compliance: Yes Side effects from medications: No Attending Groups: Intermittent Review of Systems Review of Systems Constitutional : No Weight loss, No Fever, No Chills, No Fatigue, No Malaise ENT/Mouth : No sore throat, No Rhinorrhea Eyes: No Eye Pain, No Swelling, No Redness Cardiovascular : No Chest Pain, No SOB, No Dyspnea on Exertion, No Orthopnea, No Edema, No Palpitations Respiratory : No Cough, No Sputum, No Wheezing Gastrointestinal : No Nausea, No Vomiting, No Diarrhea, No Constipation, No abdominal Pain, No Hematochezia, No Melena Genitourinary : No Dysuria, No Urinary Frequency, No Hematuria, Musculoskeletal : No joint pain, No Myalgias, No Joint Swelling Skin : No Skin Lesions, No rash Neuro : No Weakness, No Numbness, No Dizziness, No Headache Psych : No Anxiety/Panic, No Depression, + AH,TH, No SI and HI All other systems reviewed and are negative Yes all other systems are reviewed and are negative Mental Status Exam Mental Status Exam Narrative: Appearance: casually groomed, fair hygiene in NAD Behavior:cooperative psychomotor: no agitation or retardation noted Speech:clear, normal rate/rhythm/volume, spontaneous Thought process:tangential, no loose associations Thought content:less voices, feeling tired, still paranoia, pentecostalism delusions Mood: pretty good Affect: congruent, anxious SI:denies HI:denies VH/AH:+AH Delusions:paranoia, pentecostalism delusions Insight/judgment:poor x 2. Memory/cog: alert, oriented x 3. Diagnostics Vital Signs (24Hr): Vital Signs - 24 hr 11/04/21 21:29 11/05/21 09:01 Temperature 98.3 F 97.5 F Pulse Rate 111 H 65 Respiratory Rate 16 Blood Pressure 138/81 126/59 L Pulse Oximetry 95 96 Oxygen Delivery Method Room Air Room Air BMI result Body Mass Index 28.8 Labs Results: 10/31/21 19:07 10/25/21 07:39 Medications Medications Current Medications Acetaminophen (Acetaminophen 325 Mg Tablet) 650 mg PO Q6H PRN PRN Reason: Headache/Pain Mild Scale (1-3) Al Hydroxide/Mg Hydroxide (Magnesium Hydrox/Alum Hydrox 30 Ml Oral.Susp) 30 ml PO Q6H PRN PRN Reason: Heartburn/Nausea Clozapine (Clozapine 25 Mg Tablet) 50 mg PO BID [facility] Last Admin: 11/05/21 08:33 Dose: 50 mg Divalproex Sodium (Divalproex Sodium Er 500 Mg Tab.Er.24h) 2,000 mg PO BEDTIME [facility] Last Admin: 11/04/21 21:22 Dose: 2,000 mg Hydroxyzine HCl (Hydroxyzine Hcl 25 Mg Tablet) 25 mg PO Q6H PRN PRN Reason: Anxiety Last Admin: 11/04/21 21:23 Dose: 25 mg Magnesium Hydroxide (Milk Of Magnesia 30 Ml Oral.Susp) 30 ml PO DAILY PRN PRN Reason: Constipation Last Admin: 11/03/21 12:38 Dose: 30 ml Melatonin (Melatonin 3 Mg Tablet) 6 mg PO BEDTIME PRN PRN Reason: insomnia Last Admin: 11/04/21 21:23 Dose: 6 mg Nicotine (Nicotine 21 Mg Patch.Td24) 21 mg TRANSDERMA DAILY [facility] Last Admin: 11/05/21 08:33 Dose: 21 mg Nicotine Polacrilex (Nicotine Polacrilex 2 Mg Gum) 2 mg BUCCAL Q2H PRN PRN Reason: Nicotine Cravings Last Admin: 11/05/21 11:55 Dose: 2 mg Olanzapine (Olanzapine 5 Mg Tablet) 5 mg PO Q6H PRN PRN Reason: agitation Last Admin: 11/01/21 21:07 Dose: 5 mg Paliperidone Palmitate (Paliperidone Palmitate 234 Mg/1.5 Ml Syringe) 234 mg IM Q30D [facility] Last Admin: 10/24/21 01:14 Dose: Not Given Pharmacy Consult (Consult Rx Perform Med Rec) 1 each MISCELLANE ONCE PRN PRN Reason: Consult order Polyethylene Glycol (Polyethylene Glycol 3350 17 Gm Powd.Pack) 17 gm PO DAILY [facility] Last Admin: 11/05/21 08:33 Dose: 17 gm Senna/Docusate Sodium (Sennosides/Docusate Sodium Tablet) 1 tab PO BID [facility] Last Admin: 11/05/21 08:33 Dose: 1 tab Trazodone HCl (Trazodone Hcl 50 Mg Tablet) 50 mg PO BEDTIME PRN PRN Reason: Insomnia Last Admin: 11/04/21 21:23 Dose: 50 mg Allergies Allergies Allergy/AdvReac Type Severity Reaction Status Date / Time haloperidol [From Haldol] AdvReac Intermediate EPS Verified 08/21/21 11:47 lorazepam AdvReac Unknown Unverified 11/03/21 12:52 Assessment & Plan Assessment & Plan (1) Schizoaffective disorder, bipolar type: Status: Acute Code(s): F25.0 - Schizoaffective disorder, bipolar type Plan 10/25/2021 resume his current medications. He was educated around his medications. 10/26: Continue current regimen and plans 10/27 continue current medications. 10/28 increase olanzapine to 20mg po BID. continue Invega Sustenna but he may benefit from different ROSS. 10/29 continue current medication, but may consider clozaril as he has had 3 monotherapy failed trials. 10/30 discussed starting clozaril. taper off olanzapine. 10/31 try clozaril- 11/01 reviewed labs, continue clozapine trial at 25 mg BID, will increase in 3-4 days 11/02 no med changes, pt tolerating clozapine, still labile and delusional 11/03 pt reports less AH, increased insight 11/04 less Ah but continues to present with significant pentecostalism delusions and being with antichrist that he has to contain. increase clozaril to 50mg po BID. d/c olanzapine. 11/05 continue titrating clozaril, given risk of rapidly decompensating and recurrent CAH, will file to petition involuntary treatment if pt declines to retract 3 day. I spent __25____ minutes with the patient and/or on the patient floor today, greater than?50% of which was spent counseling/coordinating care. Patient educated on: diagnosis and medication risk/benefits Informed Consent: understands Reason for contiued inpatient stay Substantial Risk for: harm to self, harm to others and inability to function
[2021-11-05 21:15] VITALS: BP 131/92; PULSE 125; TEMP 36.8; O2SAT 95
[2021-11-05] MEDS: hydrOXYzine HCL 25 MG TABLET PO (21:28)
[2021-11-05] MEDS: traZODone HCL 50 MG TABLET PO (21:28)
[2021-11-05] MEDS: Divalproex Sodium ER 500 MG TAB.ER.24H 2000 MG PO (21:28)
[2021-11-05] MEDS: Melatonin 3 MG TABLET 6 MG PO (21:29)
--- NOTE | 2021-11-06 01:36 | PC.NURSE ---
on 11/05 retracted then re submitted 3 day notice
[2021-11-06 07:00] VITALS: BMI 29.9
[2021-11-06 09:15] VITALS: BP 139/79; PULSE 75; RESP 20; TEMP 36.4; O2SAT 95
[2021-11-06] MEDS: Sennosides/Docusate Sodium TABLET 1 TAB PO ×2 (09:36→21:45)
[2021-11-06] MEDS: cloZAPine 25 MG TABLET 50 MG PO (09:36)
[2021-11-06] MEDS: Nicotine 21 MG PATCH.TD24 TRANSDERMA (09:37)
[2021-11-06] MEDS: polyethylene glycoL 3350 17 GM POWD.PACK PO ×2 (09:37→21:58)
--- NOTE | 2021-11-06 11:03 | HO.PSYCHPN ---
Subjective Subjective Date of Service: 11/06/21 Reason For Visit: PSYCHOSIS / schizoaffective disorder Subjective Notes: Conditional Voluntary and 3 Day Interim History: Pt agreed to retract 3 day. He reports he spoke with his mother and agreed to stay longer. He reports he feels calmer less anxious but preoccupied with his mission of containing the antichrist, which he has insight of him in his abdomen. Pt reports sleeping and eating well. Pt reports need to pace at times. Pt also reports constipation, no improvement with therapy (sennakot, miralax). Will order KUB, increase miralax to BID, and dose of senakot. We discussed considering mineral oil enema or glycerin suppository. Review of Systems Review of Systems Constitutional : No Weight loss, No Fever, No Chills, No Fatigue, No Malaise ENT/Mouth : No sore throat, No Rhinorrhea Eyes: No Eye Pain, No Swelling, No Redness Cardiovascular : No Chest Pain, No SOB, No Dyspnea on Exertion, No Orthopnea, No Edema, No Palpitations Respiratory : No Cough, No Sputum, No Wheezing Gastrointestinal : No Nausea, No Vomiting, No Diarrhea, No Constipation, No abdominal Pain, No Hematochezia, No Melena Genitourinary : No Dysuria, No Urinary Frequency, No Hematuria, Musculoskeletal : No joint pain, No Myalgias, No Joint Swelling Skin : No Skin Lesions, No rash Neuro : No Weakness, No Numbness, No Dizziness, No Headache Psych : No Anxiety/Panic, No Depression, + AH,TH, No SI and HI All other systems reviewed and are negative Yes all other systems are reviewed and are negative Mental Status Exam Mental Status Exam Narrative: Appearance: casually groomed, fair hygiene in NAD Behavior:cooperative psychomotor: no agitation or retardation noted Speech:clear, normal rate/rhythm/volume, spontaneous Thought process:tangential, no loose associations Thought content:less voices, feeling tired, still paranoia, episcopalian delusions Mood: pretty good Affect: congruent, anxious SI:denies HI:denies VH/AH:+AH Delusions:paranoia, episcopalian delusions Insight/judgment:poor x 2. Memory/cog: alert, oriented x 3. Diagnostics Vital Signs (24Hr): Vital Signs - 24 hr 11/06/21 20:40 Temperature 98.4 F Pulse Rate 132 H Respiratory Rate 18 Blood Pressure 135/87 Pulse Oximetry 96 Oxygen Delivery Method Room Air BMI result Body Mass Index 29.9 Labs Results: 10/31/21 19:07 10/25/21 07:39 Labs: Laboratory Results - last 48 hr 11/07/21 08:13 Absolute Neuts (auto) 7.7 Imaging Radiology Impressions: ITS Impressions KUB X-Ray 11/06/21 15:28 IMPRESSION: No acute abnormality the abdomen. Medications Medications Current Medications Acetaminophen (Acetaminophen 325 Mg Tablet) 650 mg PO Q6H PRN PRN Reason: Headache/Pain Mild Scale (1-3) Al Hydroxide/Mg Hydroxide (Magnesium Hydrox/Alum Hydrox 30 Ml Oral.Susp) 30 ml PO Q6H PRN PRN Reason: Heartburn/Nausea Atenolol (Atenolol 25 Mg Tablet) 25 mg PO DAILY [facility]; Protocol Clozapine (Clozapine 100 Mg Tablet) 100 mg PO BID [facility] Clozapine (Clozapine 25 Mg Tablet) 75 mg PO ONCE ONE Stop: 11/07/21 11:03 Divalproex Sodium (Divalproex Sodium Er 500 Mg Tab.Er.24h) 2,000 mg PO BEDTIME [facility] Last Admin: 11/06/21 21:56 Dose: 2,000 mg Hydroxyzine HCl (Hydroxyzine Hcl 25 Mg Tablet) 25 mg PO Q6H PRN PRN Reason: Anxiety Last Admin: 11/05/21 21:28 Dose: 25 mg Magnesium Hydroxide (Milk Of Magnesia 30 Ml Oral.Susp) 30 ml PO DAILY PRN PRN Reason: Constipation Last Admin: 11/03/21 12:38 Dose: 30 ml Melatonin (Melatonin 3 Mg Tablet) 6 mg PO BEDTIME PRN PRN Reason: insomnia Last Admin: 11/06/21 21:57 Dose: 6 mg Nicotine (Nicotine 21 Mg Patch.Td24) 21 mg TRANSDERMA DAILY [facility] Last Admin: 11/06/21 09:37 Dose: 21 mg Nicotine Polacrilex (Nicotine Polacrilex 2 Mg Gum) 2 mg BUCCAL Q2H PRN PRN Reason: Nicotine Cravings Last Admin: 11/06/21 18:53 Dose: 2 mg Olanzapine (Olanzapine 5 Mg Tablet) 5 mg PO Q6H PRN PRN Reason: agitation Last Admin: 11/01/21 21:07 Dose: 5 mg Paliperidone Palmitate (Paliperidone Palmitate 234 Mg/1.5 Ml Syringe) 234 mg IM Q30D [facility] Last Admin: 10/24/21 01:14 Dose: Not Given Pharmacy Consult (Consult Rx Perform Med Rec) 1 each MISCELLANE ONCE PRN PRN Reason: Consult order Polyethylene Glycol (Polyethylene Glycol 3350 17 Gm Powd.Pack) 17 gm PO BID [facility] Last Admin: 11/06/21 21:58 Dose: 17 gm Senna/Docusate Sodium (Sennosides/Docusate Sodium Tablet) 2 tab PO BID [facility] Trazodone HCl (Trazodone Hcl 50 Mg Tablet) 50 mg PO BEDTIME PRN PRN Reason: Insomnia Last Admin: 11/06/21 21:57 Dose: 50 mg Allergies Allergies Allergy/AdvReac Type Severity Reaction Status Date / Time haloperidol [From Haldol] AdvReac Intermediate EPS Verified 08/21/21 11:47 lorazepam AdvReac Unknown Unverified 11/03/21 12:52 Assessment & Plan Assessment & Plan (1) Schizoaffective disorder, bipolar type: Status: Acute Code(s): F25.0 - Schizoaffective disorder, bipolar type Plan 10/25/2021 resume his current medications. He was educated around his medications. 10/26: Continue current regimen and plans 10/27 continue current medications. 10/28 increase olanzapine to 20mg po BID. continue Invega Sustenna but he may benefit from different ROSS. 10/29 continue current medication, but may consider clozaril as he has had 3 monotherapy failed trials. 10/30 discussed starting clozaril. taper off olanzapine. 10/31 try clozaril- 11/01 reviewed labs, continue clozapine trial at 25 mg BID, will increase in 3-4 days 11/02 no med changes, pt tolerating clozapine, still labile and delusional 11/03 pt reports less AH, increased insight 11/04 less Ah but continues to present with significant episcopalian delusions and being with antichrist that he has to contain. increase clozaril to 50mg po BID. d/c olanzapine. 11/05 continue titrating clozaril, given risk of rapidly decompensating and recurrent CAH, will file to petition involuntary treatment if pt declines to retract 3 day. 11/06 constipation continues to be issue- ordered KUB (less constipated compared to image done in 06/2021 when he was not on any antipsychotic med), increase clozaril to 100mg po BID, add atenolol for tachycardia s/s to clozaril. I spent ___25___ minutes with the patient and/or on the patient floor today, greater than?50% of which was spent counseling/coordinating care. Reason for contiued inpatient stay Substantial Risk for: harm to others and inability to function
[2021-11-06] MEDS: Nicotine Polacrilex 2 MG GUM BUCCAL (18:53)
[2021-11-06 20:40] VITALS: BP 135/87; PULSE 132; RESP 18; TEMP 36.9; O2SAT 96
[2021-11-06] MEDS: cloZAPine 25 MG TABLET 75 MG PO (21:56)
[2021-11-06] MEDS: Divalproex Sodium ER 500 MG TAB.ER.24H 2000 MG PO (21:56)
[2021-11-06] MEDS: traZODone HCL 50 MG TABLET PO (21:57)
[2021-11-06] MEDS: Melatonin 3 MG TABLET 6 MG PO (21:57)
[2021-11-07 08:53] LABS: Neut%MD 66.4 %; Neutrophils Absolute Auto 7.7 x10*3/uL (2.0-8.3); WBCANC 11.5 X10*3/uL
[2021-11-07 12:01] VITALS: BP 135/69; PULSE 123; RESP 17; TEMP 36.7; O2SAT 96
[2021-11-07] MEDS: cloZAPine 25 MG TABLET 75 MG PO (12:03)
--- NOTE | 2021-11-07 12:12 | P.PNPSI_ITS ---
Subjective Subjective Date of Service: 11/07/21 Reason For Visit: PSYCHOSIS / schizoaffective disorder Subjective Notes: 3 Day Interim History: Pt reports voices are less but he can feel and sense the tension between mother and father, referring to lorenza Jones and [place] or God. Pt reports lorenza Jones supports [place] and father supports the [place], but mother very upset about father because the [place] doing a lot of wrong things. He reports spirit of antichrist is still in him and he has been an instrument for God. He states when he hears the voices he has to follow the commends because this is God talking to him and he knows what he has to do. He denies SI/HI. Less AH. Medication Compliance: Yes Side effects from medications: No Attending Groups: No Review of Systems Review of Systems Constitutional : No Weight loss, No Fever, No Chills, No Fatigue, No Malaise ENT/Mouth : No sore throat, No Rhinorrhea Eyes: No Eye Pain, No Swelling, No Redness Cardiovascular : No Chest Pain, No SOB, No Dyspnea on Exertion, No Orthopnea, No Edema, No Palpitations Respiratory : No Cough, No Sputum, No Wheezing Gastrointestinal : No Nausea, No Vomiting, No Diarrhea, No Constipation, No abdominal Pain, No Hematochezia, No Melena Genitourinary : No Dysuria, No Urinary Frequency, No Hematuria, Musculoskeletal : No joint pain, No Myalgias, No Joint Swelling Skin : No Skin Lesions, No rash Neuro : No Weakness, No Numbness, No Dizziness, No Headache Psych : No Anxiety/Panic, No Depression, + AH,TH, No SI and HI All other systems reviewed and are negative Yes all other systems are reviewed and are negative Mental Status Exam Mental Status Exam Narrative: Appearance: casually groomed, fair hygiene in NAD Behavior:cooperative psychomotor: no agitation or retardation noted Speech:clear, normal rate/rhythm/volume, spontaneous Thought process:tangential, no loose associations Thought content:less voices, feeling tired, still paranoia, pentecostalism delusions Mood: pretty good Affect: congruent, anxious SI:denies HI:denies VH/AH:+AH Delusions:paranoia, pentecostalism delusions Insight/judgment:poor x 2. Memory/cog: alert, oriented x 3. Diagnostics Vital Signs (24Hr): Vital Signs - 24 hr 11/07/21 12:01 11/07/21 16:35 Temperature 98.1 F Pulse Rate 123 H 129 H Respiratory Rate 17 Blood Pressure 135/69 143/84 H Pulse Oximetry 96 Oxygen Delivery Method Room Air BMI result Body Mass Index 29.9 Labs Results: 10/31/21 19:07 10/25/21 07:39 Labs: Laboratory Results - last 48 hr 11/07/21 08:13 Absolute Neuts (auto) 7.7 Imaging Radiology Impressions: ITS Impressions K[facility] X-Ray 11/06/21 15:28 IMPRESSION: No acute abnormality the abdomen. Medications Medications Current Medications Acetaminophen (Acetaminophen 325 Mg Tablet) 650 mg PO Q6H PRN PRN Reason: Headache/Pain Mild Scale (1-3) Al Hydroxide/Mg Hydroxide (Magnesium Hydrox/Alum Hydrox 30 Ml Oral.Susp) 30 ml PO Q6H PRN PRN Reason: Heartburn/Nausea Atenolol (Atenolol 25 Mg Tablet) 25 mg PO DAILY [facility]; Protocol Last Admin: 11/07/21 16:36 Dose: 25 mg Clozapine (Clozapine 100 Mg Tablet) 100 mg PO BID [facility] Last Admin: 11/07/21 20:31 Dose: 100 mg Divalproex Sodium (Divalproex Sodium Er 500 Mg Tab.Er.24h) 2,000 mg PO BEDTIME [facility] Last Admin: 11/07/21 20:31 Dose: 2,000 mg Hydroxyzine HCl (Hydroxyzine Hcl 25 Mg Tablet) 25 mg PO Q6H PRN PRN Reason: Anxiety Last Admin: 11/05/21 21:28 Dose: 25 mg Magnesium Hydroxide (Milk Of Magnesia 30 Ml Oral.Susp) 30 ml PO DAILY PRN PRN Reason: Constipation Last Admin: 11/03/21 12:38 Dose: 30 ml Melatonin (Melatonin 3 Mg Tablet) 6 mg PO BEDTIME PRN PRN Reason: insomnia Last Admin: 11/06/21 21:57 Dose: 6 mg Nicotine (Nicotine 21 Mg Patch.Td24) 21 mg TRANSDERMA DAILY [facility] Last Admin: 11/07/21 12:03 Dose: Not Given Nicotine Polacrilex (Nicotine Polacrilex 2 Mg Gum) 2 mg BUCCAL Q2H PRN PRN Reason: Nicotine Cravings Last Admin: 11/07/21 20:11 Dose: 2 mg Olanzapine (Olanzapine 5 Mg Tablet) 5 mg PO Q6H PRN PRN Reason: agitation Last Admin: 11/01/21 21:07 Dose: 5 mg Paliperidone Palmitate (Paliperidone Palmitate 234 Mg/1.5 Ml Syringe) 234 mg IM Q30D [facility] Last Admin: 10/24/21 01:14 Dose: Not Given Pharmacy Consult (Consult Rx Perform Med Rec) 1 each MISCELLANE ONCE PRN PRN Reason: Consult order Polyethylene Glycol (Polyethylene Glycol 3350 17 Gm Powd.Pack) 17 gm PO BID [facility] Last Admin: 11/07/21 20:32 Dose: 17 gm Senna/Docusate Sodium (Sennosides/Docusate Sodium Tablet) 2 tab PO BID [facility] Last Admin: 11/07/21 20:31 Dose: 1 tab Trazodone HCl (Trazodone Hcl 50 Mg Tablet) 50 mg PO BEDTIME PRN PRN Reason: Insomnia Last Admin: 11/07/21 20:31 Dose: 50 mg Allergies Allergies Allergy/AdvReac Type Severity Reaction Status Date / Time haloperidol [From Haldol] AdvReac Intermediate EPS Verified 08/21/21 11:47 lorazepam AdvReac Unknown Unverified 11/03/21 12:52 Assessment & Plan Assessment & Plan (1) Schizoaffective disorder, bipolar type: Status: Acute Code(s): F25.0 - Schizoaffective disorder, bipolar type Plan 10/25/2021 resume his current medications. He was educated around his medications. 10/26: Continue current regimen and plans 10/27 continue current medications. 10/28 increase olanzapine to 20mg po BID. continue Invega Sustenna but he may benefit from different ROSS. 10/29 continue current medication, but may consider clozaril as he has had 3 monotherapy failed trials. 10/30 discussed starting clozaril. taper off olanzapine. 10/31 try clozaril- 11/01 reviewed labs, continue clozapine trial at 25 mg BID, will increase in 3-4 days 11/02 no med changes, pt tolerating clozapine, still labile and delusional 11/03 pt reports less AH, increased insight 11/04 less Ah but continues to present with significant pentecostalism delusions and being with antichrist that he has to contain. increase clozaril to 50mg po BID. d/c olanzapine. 11/05 continue titrating clozaril, given risk of rapidly decompensating and recurrent CAH, will file to petition involuntary treatment if pt declines to retract 3 day. 11/06 constipation continues to be issue- ordered KUB (less constipated compared to image done in 06/2021 when he was not on any antipsychotic med), increase clozaril to 100mg po BID, add atenolol for tachycardia s/s to clozaril. 11/07 continue current medications. I spent ___25___ minutes with the patient and/or on the patient floor today, greater than?50% of which was spent counseling/coordinating care. Reason for contiued inpatient stay Substantial Risk for: harm to others and inability to function
[2021-11-07 16:35] VITALS: BP 143/84; PULSE 129
[2021-11-07] MEDS: atenoloL 25 MG TABLET PO (16:36)
[2021-11-07 20:10] VITALS: BP 126/74; PULSE 111; RESP 18; TEMP 36.6; O2SAT 95
[2021-11-07] MEDS: Nicotine Polacrilex 2 MG GUM BUCCAL (20:11)
[2021-11-07] MEDS: Sennosides/Docusate Sodium TABLET 2 TAB PO (20:31)
[2021-11-07] MEDS: Melatonin 3 MG TABLET 6 MG PO (20:31)
[2021-11-07] MEDS: Divalproex Sodium ER 500 MG TAB.ER.24H 2000 MG PO (20:31)
[2021-11-07] MEDS: cloZAPine 100 MG TABLET PO (20:31)
[2021-11-07] MEDS: traZODone HCL 50 MG TABLET PO (20:31)
[2021-11-07] MEDS: polyethylene glycoL 3350 17 GM POWD.PACK PO (20:32)
[2021-11-08 10:00] VITALS: BP 136/81; PULSE 108; RESP 18; TEMP 36.3; O2SAT 95
[2021-11-08] MEDS: cloZAPine 100 MG TABLET PO ×2 (10:13→21:47)
[2021-11-08] MEDS: atenoloL 25 MG TABLET PO (10:13)
--- NOTE | 2021-11-08 14:49 | HO.PSYCHPN ---
Subjective Subjective Date of Service: 11/08/21 Reason For Visit: PSYCHOSIS / schizoaffective disorder Subjective Notes: Conditional Voluntary and 3 Day Interim History: Patient somewhat sedated during the day pleasant with alfonso affect. Decrease in auditory hallucinations has been taking medication as prescribed Medication Compliance: Yes Mental Status Exam Mental Status Exam Narrative: Appearance: casually groomed, fair hygiene in NAD Behavior:cooperative psychomotor: no agitation or retardation noted Speech:clear, normal rate/rhythm/volume, spontaneous Thought process:tangential, no loose associations Thought content:less voices, feeling tired, still paranoia, orthodoxy delusions Mood ok Affect: congruent, anxious SI:denies HI:denies VH/AH:+AH decreased Delusions:paranoia, orthodoxy delusions Insight/judgment:poor x 2. Memory/cog: alert, oriented x 3. Diagnostics Vital Signs (24Hr): Vital Signs - 24 hr 11/07/21 16:35 11/07/21 20:10 11/08/21 10:00 Temperature 97.8 F 97.4 F Pulse Rate 129 H 111 H 108 H Respiratory Rate 18 18 Blood Pressure 143/84 H 126/74 136/81 Pulse Oximetry 95 95 Oxygen Delivery Method Room Air Room Air BMI result Body Mass Index 29.9 Labs Results: 10/31/21 19:07 10/25/21 07:39 Labs: Laboratory Results - last 48 hr 11/07/21 08:13 Absolute Neuts (auto) 7.7 Imaging Radiology Impressions: ITS Impressions KUB X-Ray 11/06/21 15:28 IMPRESSION: No acute abnormality the abdomen. Medications Medications Current Medications Acetaminophen (Acetaminophen 325 Mg Tablet) 650 mg PO Q6H PRN PRN Reason: Headache/Pain Mild Scale (1-3) Al Hydroxide/Mg Hydroxide (Magnesium Hydrox/Alum Hydrox 30 Ml Oral.Susp) 30 ml PO Q6H PRN PRN Reason: Heartburn/Nausea Atenolol (Atenolol 25 Mg Tablet) 25 mg PO DAILY [facility]; Protocol Last Admin: 11/08/21 10:13 Dose: 25 mg Clozapine (Clozapine 100 Mg Tablet) 100 mg PO BID FANNIE Last Admin: 11/08/21 10:13 Dose: 100 mg Divalproex Sodium (Divalproex Sodium Er 500 Mg Tab.Er.24h) 2,000 mg PO BEDTIME [facility] Last Admin: 11/07/21 20:31 Dose: 2,000 mg Hydroxyzine HCl (Hydroxyzine Hcl 25 Mg Tablet) 25 mg PO Q6H PRN PRN Reason: Anxiety Last Admin: 11/05/21 21:28 Dose: 25 mg Magnesium Hydroxide (Milk Of Magnesia 30 Ml Oral.Susp) 30 ml PO DAILY PRN PRN Reason: Constipation Last Admin: 11/03/21 12:38 Dose: 30 ml Melatonin (Melatonin 3 Mg Tablet) 6 mg PO BEDTIME PRN PRN Reason: insomnia Last Admin: 11/07/21 20:31 Dose: 6 mg Nicotine (Nicotine 21 Mg Patch.Td24) 21 mg TRANSDERMA DAILY [facility] Last Admin: 11/08/21 10:13 Dose: Not Given Nicotine Polacrilex (Nicotine Polacrilex 2 Mg Gum) 2 mg BUCCAL Q2H PRN PRN Reason: Nicotine Cravings Last Admin: 11/07/21 20:11 Dose: 2 mg Olanzapine (Olanzapine 5 Mg Tablet) 5 mg PO Q6H PRN PRN Reason: agitation Last Admin: 11/01/21 21:07 Dose: 5 mg Paliperidone Palmitate (Paliperidone Palmitate 234 Mg/1.5 Ml Syringe) 234 mg IM Q30D [facility] Last Admin: 10/24/21 01:14 Dose: Not Given Pharmacy Consult (Consult Rx Perform Med Rec) 1 each MISCELLANE ONCE PRN PRN Reason: Consult order Polyethylene Glycol (Polyethylene Glycol 3350 17 Gm Powd.Pack) 17 gm PO BID [facility] Last Admin: 11/08/21 10:13 Dose: Not Given Senna/Docusate Sodium (Sennosides/Docusate Sodium Tablet) 2 tab PO BID [facility] Last Admin: 11/08/21 10:13 Dose: Not Given Trazodone HCl (Trazodone Hcl 50 Mg Tablet) 50 mg PO BEDTIME PRN PRN Reason: Insomnia Last Admin: 11/07/21 20:31 Dose: 50 mg Allergies Allergies Allergy/AdvReac Type Severity Reaction Status Date / Time haloperidol [From Haldol] AdvReac Intermediate EPS Verified 08/21/21 11:47 lorazepam AdvReac Unknown Unverified 11/03/21 12:52 Assessment & Plan Assessment & Plan (1) Schizoaffective disorder, bipolar type: Status: Acute Code(s): F25.0 - Schizoaffective disorder, bipolar type Plan 10/25/2021 resume his current medications. He was educated around his medications. 10/26: Continue current regimen and plans 10/27 continue current medications. 10/28 increase olanzapine to 20mg po BID. continue Invega Sustenna but he may benefit from different ROSS. 10/29 continue current medication, but may consider clozaril as he has had 3 monotherapy failed trials. 10/30 discussed starting clozaril. taper off olanzapine. 10/31 try clozaril- 11/01 reviewed labs, continue clozapine trial at 25 mg BID, will increase in 3-4 days 11/02 no med changes, pt tolerating clozapine, still labile and delusional 11/03 pt reports less AH, increased insight 11/04 less Ah but continues to present with significant orthodoxy delusions and being with antichrist that he has to contain. increase clozaril to 50mg po BID. d/c olanzapine. 11/05 continue titrating clozaril, given risk of rapidly decompensating and recurrent CAH, will file to petition involuntary treatment if pt declines to retract 3 day. 11/06 constipation continues to be issue- ordered KUB (less constipated compared to image done in 06/2021 when he was not on any antipsychotic med), increase clozaril to 100mg po BID, add atenolol for tachycardia s/s to clozaril. 11/07 continue current medications. 11/08/2021 Patient is sedated on the Clozaril 100 b.i.d. would consider shifting to more and at bedtime or supper time. Patient is somewhat lethargic much less anxious less delusional preoccupation I spent minutes with the patient and/or on the patient floor today, greater than?50% of which was spent counseling/coordinating care. Reason for contiued inpatient stay Substantial Risk for: harm to self, inability to function and rapid decompensation
[2021-11-08] MEDS: Divalproex Sodium ER 500 MG TAB.ER.24H 2000 MG PO (21:47)
[2021-11-08] MEDS: Melatonin 3 MG TABLET 6 MG PO (21:47)
[2021-11-08] MEDS: traZODone HCL 50 MG TABLET PO (21:47)
[2021-11-08] MEDS: Sennosides/Docusate Sodium TABLET 2 TAB PO (21:47)
[2021-11-09 08:51] VITALS: BP 150/88; PULSE 108; RESP 18; TEMP 36.6; O2SAT 97
[2021-11-09] MEDS: Magnesium Hydrox/Alum Hydrox 30 ML ORAL.SUSP PO (08:53)
[2021-11-09] MEDS: Sennosides/Docusate Sodium TABLET 2 TAB PO ×2 (08:53→20:07)
[2021-11-09] MEDS: cloZAPine 100 MG TABLET PO ×2 (08:53→20:07)
[2021-11-09] MEDS: atenoloL 25 MG TABLET PO (08:53)
[2021-11-09] MEDS: Nicotine 21 MG PATCH.TD24 TRANSDERMA (09:04)
[2021-11-09] MEDS: Nicotine Polacrilex 2 MG GUM BUCCAL (14:58)
[2021-11-09 18:40] VITALS: BP 136/82; PULSE 119; RESP 16; TEMP 36.6; O2SAT 97
[2021-11-09] MEDS: Divalproex Sodium ER 500 MG TAB.ER.24H 2000 MG PO (20:07)
--- NOTE | 2021-11-09 21:10 | PC.NURSE ---
Pt A&O, INAD, pleasant and cooperative, responds appropriately, denies pain and safety concerns, dns SI/HI/AH/VH, reports anxiety 04/10 and depression 04/10 r-t expected discharge tomorrow. Encouraged client to adhere to his discharge plan and explained he will receive a list of crisis resources when discharging to utilize if he feels like he needs help again. Pt verbalizes understanding and agrees.
--- NOTE | 2021-11-09 23:48 | P.PNPSI_ITS ---
Subjective Subjective Date of Service: 11/09/21 Reason For Visit: PSYCHOSIS / schizoaffective disorder Subjective Notes: Rios Warning and Conditional Voluntary Interim History: Patient has been medication compliant looking for discharge tomorrow. He is quite sedated during the day we discussed trying to shift more medication at night to take medication earlier in the evening. Medication Compliance: Yes Side effects from medications: Yes Review of Systems Acute medical concerns: No Mental Status Exam Mental Status Exam Narrative: Appearance: casually groomed, fair hygiene in NAD Behavior:cooperative psychomotor: no agitation or retardation noted Speech:clear, normal rate/rhythm/volume, spontaneous Thought process:tangential, no loose associations Thought content:less voices, feeling tired, still paranoia, moravian delusions Mood ok Affect: congruent, anxious SI:denies HI:denies VH/AH:+AH decreased Delusions:paranoia, moravian delusions Insight/judgment:poor x 2. Memory/cog: alert, oriented x 3. Diagnostics Vital Signs (24Hr): Vital Signs - 24 hr 11/09/21 08:51 11/09/21 18:40 Temperature 97.8 F 97.9 F Pulse Rate 108 H 119 H Respiratory Rate 18 16 Blood Pressure 150/88 H 136/82 Pulse Oximetry 97 97 Oxygen Delivery Method Room Air Room Air BMI result Body Mass Index 29.9 Labs Results: 10/31/21 19:07 10/25/21 07:39 Imaging Radiology Impressions: ITS Impressions KUB X-Ray 11/06/21 15:28 IMPRESSION: No acute abnormality the abdomen. Medications Medications Current Medications Acetaminophen (Acetaminophen 325 Mg Tablet) 650 mg PO Q6H PRN PRN Reason: Headache/Pain Mild Scale (1-3) Al Hydroxide/Mg Hydroxide (Magnesium Hydrox/Alum Hydrox 30 Ml Oral.Susp) 30 ml PO Q6H PRN PRN Reason: Heartburn/Nausea Last Admin: 11/09/21 08:53 Dose: 30 ml Atenolol (Atenolol 25 Mg Tablet) 25 mg PO DAILY [facility]; Protocol Last Admin: 11/09/21 08:53 Dose: 25 mg Clozapine (Clozapine 100 Mg Tablet) 100 mg PO BID@0830,2030 [facility] Last Admin: 11/09/21 20:07 Dose: 100 mg Divalproex Sodium (Divalproex Sodium Er 500 Mg Tab.Er.24h) 2,000 mg PO BEDTIME [facility] Last Admin: 11/09/21 20:07 Dose: 2,000 mg Hydroxyzine HCl (Hydroxyzine Hcl 25 Mg Tablet) 25 mg PO Q6H PRN PRN Reason: Anxiety Last Admin: 11/05/21 21:28 Dose: 25 mg Magnesium Hydroxide (Milk Of Magnesia 30 Ml Oral.Susp) 30 ml PO DAILY PRN PRN Reason: Constipation Last Admin: 11/03/21 12:38 Dose: 30 ml Melatonin (Melatonin 3 Mg Tablet) 6 mg PO BEDTIME PRN PRN Reason: insomnia Last Admin: 11/08/21 21:47 Dose: 6 mg Nicotine (Nicotine 21 Mg Patch.Td24) 21 mg TRANSDERMA DAILY [facility] Last Admin: 11/09/21 09:04 Dose: 21 mg Nicotine Polacrilex (Nicotine Polacrilex 2 Mg Gum) 2 mg BUCCAL Q2H PRN PRN Reason: Nicotine Cravings Last Admin: 11/09/21 14:58 Dose: 2 mg Olanzapine (Olanzapine 5 Mg Tablet) 5 mg PO Q6H PRN PRN Reason: agitation Last Admin: 11/01/21 21:07 Dose: 5 mg Paliperidone Palmitate (Paliperidone Palmitate 234 Mg/1.5 Ml Syringe) 234 mg IM Q30D [facility] Last Admin: 10/24/21 01:14 Dose: Not Given Pharmacy Consult (Consult Rx Perform Med Rec) 1 each MISCELLANE ONCE PRN PRN Reason: Consult order Polyethylene Glycol (Polyethylene Glycol 3350 17 Gm Powd.Pack) 17 gm PO BID [facility] Last Admin: 11/09/21 20:11 Dose: Not Given Senna/Docusate Sodium (Sennosides/Docusate Sodium Tablet) 2 tab PO BID [facility] Last Admin: 11/09/21 20:07 Dose: 2 tab Trazodone HCl (Trazodone Hcl 50 Mg Tablet) 50 mg PO BEDTIME PRN PRN Reason: Insomnia Last Admin: 11/08/21 21:47 Dose: 50 mg Allergies Allergies Allergy/AdvReac Type Severity Reaction Status Date / Time haloperidol [From Haldol] AdvReac Intermediate EPS Verified 08/21/21 11:47 lorazepam AdvReac Unknown Unverified 11/03/21 12:52 Assessment & Plan Assessment & Plan (1) Schizoaffective disorder, bipolar type: Status: Acute Code(s): F25.0 - Schizoaffective disorder, bipolar type Plan 10/25/2021 resume his current medications. He was educated around his medications. 10/26: Continue current regimen and plans 10/27 continue current medications. 10/28 increase olanzapine to 20mg po BID. continue Invega Sustenna but he may benefit from different ROSS. 10/29 continue current medication, but may consider clozaril as he has had 3 monotherapy failed trials. 10/30 discussed starting clozaril. taper off olanzapine. 10/31 try clozaril- 11/01 reviewed labs, continue clozapine trial at 25 mg BID, will increase in 3-4 days 11/02 no med changes, pt tolerating clozapine, still labile and delusional 11/03 pt reports less AH, increased insight 11/04 less Ah but continues to present with significant moravian delusions and being with antichrist that he has to contain. increase clozaril to 50mg po BID. d/c olanzapine. 11/05 continue titrating clozaril, given risk of rapidly decompensating and recurrent CAH, will file to petition involuntary treatment if pt declines to retract 3 day. 11/06 constipation continues to be issue- ordered KUB (less constipated compared to image done in 06/2021 when he was not on any antipsychotic med), increase clozaril to 100mg po BID, add atenolol for tachycardia s/s to clozaril. 11/07 continue current medications. 11/09/2021 Continue plan of care would change more medication to evening and or give the bedtime dose at the earlier time I spent minutes with the patient and/or on the patient floor today, greater than?50% of which was spent counseling/coordinating care. Reason for contiued inpatient stay Substantial Risk for: inability to function and rapid decompensation
[2021-11-10 08:44] VITALS: BP 137/85; PULSE 117; RESP 16; TEMP 36.6; O2SAT 97
[2021-11-10] MEDS: Sennosides/Docusate Sodium TABLET 2 TAB PO (08:45)
[2021-11-10] MEDS: cloZAPine 100 MG TABLET PO (08:45)
[2021-11-10] MEDS: atenoloL 25 MG TABLET PO (08:46)
--- NOTE | 2021-11-10 12:33 | P.DS_ITS ---
DS: Providers Provider Date of Service: 11/10/21 Date of admission: 10/24/21 12:11 Primary care physician: Unknown Physician DS: Diagnosis Discharge Diagnosis (1) Schizoaffective disorder, bipolar type: Status: Acute DS: Medications Discharge Medications Home Medications: Previous Rx's Medication Instructions Recorded nicotine 21 mg/24 hr daily 21 mg transdermal DAILY 28 days 08/28/21 transdermal patch #28 ea atenolol 25 mg tablet 25 mg PO DAILY #30 tabs 11/10/21 clozapine 100 mg tablet 100 mg PO BID@0830,2030 #14 tabs 11/10/21 divalproex 500 mg tablet,extended 2,000 mg PO BEDTIME #120 tabs 11/10/21 release 24 hr polyethylene glycol 3350 17 gram 17 g PO BID PRN constipation #30 ea 11/10/21 oral powder packet sennosides 8.6 mg-docusate sodium 2 tab PO BID #120 tabs 11/10/21 50 mg tablet (Senna Plus) trazodone 100 mg tablet 100 mg PO BEDTIME PRN Insomnia #30 11/10/21 tabs Mental Status Exam Mental Status Exam Narrative: Appearance: casually groomed, fair hygiene in NAD Behavior:cooperative psychomotor: no agitation or retardation noted Speech:clear, normal rate/rhythm/volume, spontaneous Thought process:tangential, no loose associations Thought content:less voices, feeling tired, still paranoia, rastafarian delusions Mood: ok Affect: congruent, slightly anxious but does brighten up non labile. SI:denies HI:denies VH/AH:+AH decreased Delusions:less paranoia, rastafarian delusions Insight/judgment:poor x 2. Memory/cog: alert, oriented x 3. Data Data Completed and Pending Completed studies during hospitalization [Text1]: 11/07/21 08:13 Absolute Neuts (auto) 7.7 Imaging Diagnostic Imaging Impressions KUB X-Ray 11/06/21 15:28 IMPRESSION: No acute abnormality the abdomen. DS: Summary Hospital Course Hospital Course: HPI: Mr. Lockhart is a 26 year-old male with hx of schizoaffective disorder bipolar type who is well known to this senior underwriter through several ED visits and inpatient admission with similar presentation, mostly rastafarian delusions, AH/VH, at times CAH. Utox was positive for cannabinoids. He has received consistently following doses of INvega Sustenna: 08/28/21 234mg IM; 09/20/21 234mg IM; 10/09/21 156mg IM; 10/24 234mg IM- with minimal decrease of symptoms. He had last admission at discharged on 10/15 with addition of Olanzapine 30mg po qhs. He apparently stopped the Olanzapine after discharge. Pt presents as very agitated, reporting HOSPITAL COURSE On the unit, Mr. Lockhart was admitted on a CV and placed on 15 minutes checks for safety. He presented with rastafarian delusions of being the chosen person to contained Celestina Jones's spirit/snake or antichrist otherwise the world would end. He reported voices of Father who he reports it may be Jaylan or God, telling to stab people that were following the devil. Per mother, pt had told her voices telling him that he had to stab his 8 year-old brother and he had also told his little brother to stab others (51A was filed while in the ED). After discussing risks, benefits and alternative treatment options, he was restarted on olanzapine and continued on Invega Sustenna which as monotherapy has not shown significant improvement. He continued to report AH, although not command in nature, dysphoric mood, related to rastafarian delusions and his role of containing the antichrist to prevent world destruction. He denied SI/HI. Due to pt continuing to present as floridly psychotic, decision was made to start clozaril and taper him off other antipsychotics. He was gradually titrated to clozaril 100mg po BID, which he tolerated well. He did have tachycardia, started on atenolol with good effect. He also had constipation, which precedes clozaril but pt started on sennakot with good effect. He was continued on depakote for mood. His affect gradually presented as much less dysphoric, less rastafarian/paranoid delusions. He denied CAH/HI/SI. He seems to have slightly increase insight into need to continue treatment and connection between less AH/VH and medications. He did not have any epidodes of disruptive behaviors nor need for restraint. He did not show any signs of aggression towards self or others. Collateral information gathered from his mother who reports pt appears calmer, still with rastafarian delusions but she denies safety concerns. He agreed to have VNA. He signed 3 day notice which he declined to retract and given that pt presented in much improved condition even with residual rastafarian delusions and without any evident signs of harm to self or others or gravely disable, decision was to honor his request and continue OP psych tx. Status at Discharge Cognitive/behavioral status at discharge: Pt with brighter, non labile affect. No CAH. Less AH/VH. Less rastafarian delusions. No signs of aggression towards self or others. Functional status at discharge: independent ambulation Overall status at discharge: patient is progressing back to baseline Time Spent with Patient Time attestation: Total time spent providing and/or coordinating discharge services: Time spent: Greater than 30 minutes Discharge Plan Discharge Patient Disposition: Home Health Service Discharge Diagnosis: Schizoaffective disorder bipolar type Referrals: Satya Joe (Psychiatry) [Other] - 11/18/21 9:00 am (TELEHEALTH APPOINTMENT -Psychiatric Evaluation -Please call the office the day of your appointment and see if the appointment will be over the phone or via zoom. Please also provide the office with your email address. ) Satya Joe (Psychiatry) [Other] - 12/17/21 10:00 am (TELEHEALTH APPOINTMENT -Medication Management ) Sanjuanita Fulton (Therapy) [Other] - 11/12/21 11:00 am (IN OFFICE APPOINTMENT) [facility] [Physician] - 1 Week Discharge Medications: New clozapine 100 mg Tablet 100 mg PO BID@0830,2029 Qty: 14 1RF atenolol 25 mg Tablet 25 mg PO DAILY Qty: 30 0RF Protocol: Hold for SBP/HR < HOLD for SBP < : 90 HOLD for HR < : 60 divalproex 500 mg Tablet Extended Release 24 Hr 2,000 mg PO BEDTIME Qty: 120 0RF trazodone 100 mg tablet 100 mg PO BEDTIME PRN (Reason: Insomnia) Qty: 30 0RF polyethylene glycol 3350 17 gram Powder In Packet 17 g PO BID PRN (Reason: constipation) Qty: 30 0RF sennosides-docusate sodium [Senna Plus] 8.6-50 mg Tablet 2 tab PO BID Qty: 120 0RF Continued nicotine 21 mg/24 hr Patch 24 Hour 21 mg transdermal DAILY 28 Days Qty: 28 0RF Discontinued divalproex 500 mg Tablet Extended Release 24 Hr 2,000 mg PO BEDTIME 30 Days Qty: 120 0RF nicotine (polacrilex) 2 mg gum 2 mg PO Q2H PRN (Reason: Nicotine Cravings) 30 Days Qty: 50 0RF melatonin 3 mg tablet 6 mg PO BEDTIME PRN (Reason: insomnia) 30 Days Qty: 60 0RF Invega Sustenna 234 mg/1.5 mL syringe 234 mg IM Q30D 30 Days Qty: 1.5 0RF Rx Instructions: to be administered by [facility] by 11/07/21 chlorpromazine 200 mg tablet 1 tab PO BEDTIME olanzapine 15 mg tablet 2 tab PO BEDTIME Discharge Orders: Discharge Order (Routine); Ordered 11/10/21 Ordered By: Maddi Caldwell Diet: Regular diet Activity on Discharge: As tolerated Stand Alone Forms: Patient Portal Discharge page, Community Support Care Plan Goals: 1. Maintain mood 2. No SI/HI 3. No CAH telling him to hurt himself or others 4. Less rastafarian delusions Health Concerns: Follow up with PCP Plan of Treatment: 1. Tame medications as prescribed. 2. Go to nearest ED or call 911 in event of emergency Assessment: Pt with calmer, and brighter affect, non labile. Much less AH, VH, No CAH. Less rastafarian delusions but evident. No signs of aggression towards self or others. Increase insight as to need to continue medications, accepting VNA and referrals to OP providers.
--- NOTE | 2021-11-10 13:56 | PC.NURSE ---
Patient is alert and oriented. Patient is in agreement with discharge. Reports that he is feeling ready and safe for discharge. Patient denies SI/HI/AH/VH. Patient reports that he is in agreement with discharge teachings and instructions. Patient denies SI/HI/VH. Reports that AH have been gone or barely there for at least 3 to 4 days . No acute physical complaints.
== END 2021-11-10 14:11 | disposition home health service (06) | DRG 750 ==
LOC: HO.ED 20:16 → HO.PADLT16 10-24 14:05
PROVIDERS: Physician Assistant; Admitting Provider Psychiatry & Neurology Psychiatry; Emergency Provider Emergency Medicine; Visit Provider Social Worker
DX: F25.0 Schizoaffective disorder, bipolar type (principal); Z91.14 Patient's other noncompliance with medication regimen; F10.10 Alcohol abuse, uncomplicated; F17.210 Nicotine dependence, cigarettes, uncomplicated; Z71.6 Tobacco abuse counseling; Z56.0 Unemployment, unspecified; Z20.822 Contact with and (suspected) exposure to COVID-19; Z88.8 Allergy status to other drugs, medicaments and biological substances; Z79.899 Other long term (current) drug therapy
CPT/HCPCS: 36415; 74018; 80053; 80061; 80307; 81001; 82077; 83036; 83735; 85025; 85048; 87635; 93005; 99285; Q0163

== ENCOUNTER 2021-11-12 14:45 | Inpatient (IN) | payer OTHER, SELFPAY ==
[2021-11-12 15:06] VITALS: BP 135/88; PULSE 115; RESP 24; TEMP 36.4; O2SAT 96; BMI 29.0
--- NOTE | 2021-11-12 15:21 | ED_ITS ---
HPI - Psych General Chief Complaint: Psychiatric Symptoms Stated Complaint: crisis Time Seen by Provider: 11/12/21 15:13 Source: patient and old records reviewed Mode of arrival: ambulatory Limitations: no limitations History of Present Illness MD complaint: feels depressed, hallucinations and other ( snake spirit in my body is scaring me. ) Onset (ago): day(s) (several) Duration: constant History of same: Yes Relieving factors: none Exacerbating factors: drug use Context: not taking psychiatric medications Associated psychiatric symptoms: depression, auditory hallucinations, visual hallucinations and delusions Associated symptoms: denies other symptoms Treatments prior to arrival: none If self harm: admits thoughts of self harm Related Data Previous Rx's Medication Instructions Recorded nicotine 21 mg/24 hr daily 21 mg transdermal DAILY 28 days 08/28/21 transdermal patch #28 ea atenolol 25 mg tablet 25 mg PO DAILY #30 tabs 11/10/21 clozapine 100 mg tablet 100 mg PO BID@0830,2030 #14 tabs 11/10/21 divalproex 500 mg tablet,extended 2,000 mg PO BEDTIME #120 tabs 11/10/21 release 24 hr polyethylene glycol 3350 17 gram 17 g PO BID PRN constipation #30 ea 11/10/21 oral powder packet sennosides 8.6 mg-docusate sodium 2 tab PO BID #120 tabs 11/10/21 50 mg tablet (Senna Plus) trazodone 100 mg tablet 100 mg PO BEDTIME PRN Insomnia #30 11/10/21 tabs Allergies Allergy/AdvReac Type Severity Reaction Status Date / Time haloperidol [From Haldol] AdvReac Intermediate EPS Verified 08/21/21 11:47 lorazepam AdvReac Unknown Verified 11/12/21 15:13 Review of Systems Review of Systems: Constitutional : No Fever, No Chills ENT/Mouth : No Ear Pain, No Nasal Congestion, No sore throat Eyes: No Eye Pain, No Swelling, No Redness Cardiovascular : No Chest Pain, No SOB Respiratory : No Cough, No Sputum, No Dyspnea Gastrointestinal : No Nausea, No Vomiting, No Diarrhea, No Hematochezia, No Melena Genitourinary : No Dysuria, No Urinary Frequency, No Hematuria Musculoskeletal : No Myalgias Skin : No Skin Lesions, No rash Neuro : No Weakness, No Numbness, No Paresthesias, No Dizziness, No Headache Psych : positive Anxiety, positive Depression, positive vague SI no plan, no HI, pos AH/VH Heme/Lymph: No Lymphadenopathy Endocrine : No Polyuria, No Polydipsia All other systems reviewed and are negative [facility] Past Medical History Attestation statement: The following information was validated with the patient. Medical History Alcohol abuse Bipolar 1 disorder Schizoaffective disorder, bipolar type Social History Social History Household Members: None Housing: Apartment Do you presently have visiting nurse or other home services: No Alcohol intake: current Alcohol intake frequency: a few times a month Alcohol type: beer Patient Tobacco Use Status: Current everyday Tobacco user Tobacco use type: Cigarette Cigarette Packs Per Day: 1 Cigarettes Per Day: 20.0 Years Smoked: ''a long time'' e-Cigarette/Vaping Use: Never Used Second Hand Smoke Exposure: Yes Substance Use Type: Marijuana Advance Directives: No Advance Directives Information Provided: No service: No Sexual orientation: Straight/Heterosexual Physical Exam Vital Signs: Vital Signs: Last Vital Signs Temp 97.6 F 11/12/21 15:06 Pulse 115 H 11/12/21 15:06 Resp 24 H 11/12/21 15:06 BP 135/88 11/12/21 15:06 Pulse Ox 96 11/12/21 15:06 O2 Del Method 11/12/21 15:06 BMI result Body Mass Index 29.0 Appearance: Alert. Oriented X3. Anxious pacing back and forth grabbing head mild acute distress. Eyes: Pupils equal, round and reactive to light. ENT: Pharynx normal. Neck: Normal inspection. Neck supple. CVS: Normal heart rate and rhythm. Pulses normal. Respiratory: No respiratory distress. Breath sounds normal. Abdomen: Soft and non-tender. Skin: Skin warm and dry. Normal skin color. Extremities: No lower extremity edema. Neuro: Oriented X 3. No motor deficit. No sensory deficit. CN 2-12 intact Course Course Course Narrative: Physician observation started at 4pm Patient placed in physician observation because the patient needed more time for labs and BHN to assess the need for psych admission. At the time observation was started the patient's vitals were stable, patient is alert and oriented but slightly agitated, Neuro: nonfocal, CV RRR, Lungs clear signed out to JEANIE pending labs and RENETTA WARE MDM - Psych MDM Narrative Medical decision making narrative: 26 yo male with hx of schizoaffective disorder and psychosis here with c/o seeing snakes and having anxiety/AH/VH vague SI not taking his medications. He is very worked up at this time. Will obtain labs, refer to N. Will offer zypr exa to help him calm down while in the ED Lab Data Labs: Lab Results 11/12/21 11/12/21 Range/Units 15:20 15:20 Urine Opiates Screen Not Detected (Not Detect) Urine Fentanyl Screen Not Detected (Not Detect) Ur Barbiturates Screen Not Detected (Not Detect) Ur Phencyclidine Scrn Not Detected (Not Detect) Ur Amphetamines Screen Not Detected (Not Detect) U Benzodiazepines Scrn Not Detected (Not Detect) Urine Cocaine Screen Not Detected (Not Detect) U Marijuana (THC) Screen Not Detected (Not Detect) COVID-19 (LESLI) Negative (Negative) COVID-19 Clin Com See Note Discharge Plan Discharge Clinical Impression: Schizoaffective disorder, bipolar type, Hallucinations Patient Disposition: Still a Patient Prescriptions: No Action nicotine 21 mg/24 hr Patch 24 Hour 21 mg transdermal DAILY 28 Days Qty: 28 0RF clozapine 100 mg Tablet 100 mg PO BID@829,2029 Qty: 14 1RF atenolol 25 mg Tablet 25 mg PO DAILY Qty: 30 0RF Protocol: Hold for SBP/HR < HOLD for SBP < : 90 HOLD for HR < : 60 divalproex 500 mg Tablet Extended Release 24 Hr 2,000 mg PO BEDTIME Qty: 120 0RF trazodone 100 mg tablet 100 mg PO BEDTIME PRN (Reason: Insomnia) Qty: 30 0RF polyethylene glycol 3350 17 gram Powder In Packet 17 g PO BID PRN (Reason: constipation) Qty: 30 0RF sennosides-docusate sodium [Senna Plus] 8.6-50 mg Tablet 2 tab PO BID Qty: 120 0RF
[2021-11-12] MEDS: diphenhydrAMINE HCL 25 MG TABLET PO (15:31)
[2021-11-12] MEDS: OLANZapine 5 MG TABLET PO (15:31)
[2021-11-12 15:45] LABS: Benzodiazepines Screen Urine Not Detected (Not Detect); Cannabinoid Screen Urine Not Detected (Not Detect); Cocaine Screen Urine Not Detected (Not Detect); Fentanyl, urine Not Detected (Not Detect); Opiate Screen Urine Not Detected (Not Detect); Phencyclidine Screen Urine Not Detected (Not Detect)
[2021-11-12 15:48] LABS: Amphetamine Screen Urine Not Detected (Not Detect); Barbiturates, Urine Not Detected (Not Detect)
[2021-11-12 15:51] LABS: COVID-19 Test Negative (Negative)
[2021-11-12 16:04] LABS: MANUAL DIFF FLAG NO
[2021-11-12 16:06] LABS: Basophils Percent Auto 0.3 % (0-2); Eosinophils Absolute Auto 0.1 X10*3/uL (0.0-0.4); Eosinophils Percent Auto 0.5 % (0-4); Hematocrit 44.1 % (42.0-52.0); Hemoglobin 15.2 g/dl (14.0-18.0); Imm Gran Abs Auto 0.23 X10*3/uL (0.00-0.03); Lymphocytes Absolute Auto 1.2 X10*3/uL (1.2-4.9); Lymphocytes Percent Auto 10.1 % (20-40); Mean Corpuscular HGB Conc 34.5 g/dl (31.0-36.0); Mean Corpuscular Hemoglobin 32.6 pg (27.0-33.0); Mean Corpuscular Volume 94.6 fL (80.0-98.0); Mean Platelet Volume 9.6 fL (9.4-12.4); Monocytes Absolute Auto 1.2 X10*3/uL (0.1-1.2); Monocytes Percent Auto 10.7 % (2-11); Neutrophils Absolute Auto 8.7 x10*3/uL (2.0-8.3); Neutrophils Percent Auto 76.4 % (45-73); Platelet Count 293 X10*3/uL (160-400); Red Blood Count 4.66 X10*6/uL (4.60-5.80); Red Cell Distribution Width 12.3 % (11.0-16.0); White Blood Count 11.4 X10*3/uL (4.8-10.8)
--- NOTE | 2021-11-12 16:32 | PC.NURSE ---
N referral made at 1620.
[2021-11-12 16:34] LABS: Valproate 3.5 mcg/mL (50.0-100.0)
[2021-11-12 16:39] LABS: Alanine Aminotransferase 21 U/L (0-40); Albumin Level 4.4 g/dL (3.5-5.0); Alkaline Phosphatase 57 U/L (39-117); Anion Gap 16 (12-20); Aspartate Amino Transferase 24 U/L (5-37); Bilirubin Direct 0.2 mg/dL (0.0-0.5); Bilirubin Total 0.2 mg/dL (0.0-1.0); Blood Urea Nitrogen 13 mg/dL (9-16); Calcium 9.5 mg/dL (8.4-10.2); Carbon Dioxide 24 mmol/L (22-29); Chloride 103 mmol/L (96-108); Creatinine Clr Calc Pharmacy 147.1; Estimated Glomerular Filt Rate > 60; Glucose Random 89 mg/dL (60-115); Potassium 4.6 mmol/L (3.3-5.1); Sodium 138 mmol/L (135-145); Total Protein 7.8 g/dL (6.5-8.0)
[2021-11-12] MEDS: Sennosides/Docusate Sodium TABLET 2 TAB PO (22:22)
[2021-11-12] MEDS: hydrOXYzine HCL 50 MG TABLET PO (22:22)
[2021-11-12] MEDS: Divalproex Sodium ER 500 MG TAB.ER.24H 2000 MG PO (22:23)
[2021-11-12] MEDS: cloZAPine 100 MG TABLET PO (22:24)
--- NOTE | 2021-11-12 23:13 | PC.ADMIT ---
Patient is a 26 year old single Divehi speaking male admitted as a CV admission to M5 at 204 ad placed on 15 minute safety checks. Patient was medically cleared in the [facility] ED evaluated t=by the CARE team and deemed in need of IPLOC secondary to noncompliance with his medications and follow up care after discharge from the hospital. The patient has had multiple [facility] to [facility] and M[facility]. This visit he believes he is with the devil's son. Patient presents as agitated and paranoid and stated I just feel overwhelmed and I don't know what to do . Patient was noted to be jiggling his legs and also using both hands to rub on his face and head. Patient stated I can't believe this happened because I didn't take my medication for one day. Patient was able to sign legals and answer questions, but then said he was too anxious . Provider was notified and patient was given scheduled medications and he went to bed.
[2021-11-13] MEDS: Sennosides/Docusate Sodium TABLET 2 TAB PO ×2 (08:17→20:16)
[2021-11-13] MEDS: cloZAPine 100 MG TABLET PO (08:17)
[2021-11-13 09:14] LABS: Alanine Aminotransferase 21 U/L (0-40); Alkaline Phosphatase 53 U/L (39-117); Anion Gap 18 (12-20); Aspartate Amino Transferase 24 U/L (5-37); Bilirubin Total 0.5 mg/dL (0.0-1.0); Blood Urea Nitrogen 13 mg/dL (9-16); Calcium 9.3 mg/dL (8.4-10.2); Carbon Dioxide 25 mmol/L (22-29); Chloride 102 mmol/L (96-108); Cholesterol 294 mg/dL; Creatinine Clr Calc Pharmacy 128.3; Estimated Glomerular Filt Rate > 60; Glucose Fasting 85 mg/dL (60-99); HDL Cholesterol 30 mg/dL; LDL Cholesterol Calculated 228 mg/dl; Potassium 4.6 mmol/L (3.3-5.1); Sodium 140 mmol/L (135-145); Total Protein 7.6 g/dL (6.5-8.0); Triglycerides 183 mg/dL
--- NOTE | 2021-11-13 10:03 | P.HPPS_ITS ---
HPI Date of Service: 11/13/21 Chief Complaint: Psychosis Sources of Information: patient interviewed, chart reviewed and crisis/core team assessment reviewed HPI Narrative: Mr. Lockhart is a 26 year-old male with hx of schizoaffective disorder bipolar type, with chronic paranoid delusions, AH and who's had several admission to [facility], and was recently discharged from about 3 days ago where he was started on clozapine. Patient reports he was feeling better before discharged (although he was still quite delusional); however he says that he did not sweet pickle maker his medications right away and although he did not have a return of auditory hallucinations-which is new-he remembered all the things that the voices were saying and he found upsetting, getting him down. He started to feel like he will never have a normal life and hell never truly get better, feeling depressed. He denies any active SI but says he often wishes he would just not wake up the next day. Patient expresses continued delusional thinking, he says he is with a spirit snake and that the hospital knows but there does hiding it from everybody. He says he is the devil; that he can talk to animals. Patient is calm and seems depressed. He agrees to increasing clozapine. Past Psychiatric History: -Hx of multiple psych admissions, [place] 07[place]20[place] [facility] [place], 05/2021 -No current OP providers. Hx of lack of follow up with OP providers -Past med trials: Risperdal, olanzapine, paliperidone, depakote, haldol (dystonic) Medical Evaluation Reviewed: Yes [facility] Medical History Alcohol abuse Bipolar 1 disorder Schizoaffective disorder, bipolar type Family History: mother - bipolar disorder father - bipolar disorder sister - post- depression, anxiety Social History: born in [place], raised by his mother. has one sister. did not graduate from . was with a woman for 11 years and he now has an 11 yo daughter. he is from the girl's mother. Lives alone in an apartment. Substance History: polysubstance abuse hx Trauma History: some hx; not clear on details Diagnostics Vital Signs (24Hr): Vital Signs - 24 hr 11/12/21 15:06 Temperature 97.6 F Pulse Rate 115 H Respiratory Rate 24 H Blood Pressure 135/88 Pulse Oximetry 96 Oxygen Delivery Method Room Air BMI result Body Mass Index 29.0 Labs Results: 11/12/21 15:59 11/13/21 08:06 Labs: Laboratory Results - last 48 hr 11/12/21 11/12/21 11/12/21 15:20 15:20 15:59 WBC 11.4 H RBC 4.66 Hgb 15.2 Hct 44.1 MCV 94.6 MCH 32.6 MCHC 34.5 RDW 12.3 Plt Count 293 MPV 9.6 Immature Gran % (Auto) 2.0 H Neut % (Auto) 76.4 H Lymph % (Auto) 10.1 L [place] % (Auto) 10.7 Eos % (Auto) 0.5 Baso % (Auto) 0.3 Lymph # (Auto) 1.2 [place] # (Auto) 1.2 Eos # (Auto) 0.1 Baso # (Auto) 0.0 Abs Immat Gran (auto) 0.23 H Absolute Neuts (auto) 8.7 H Absolute Nucleated RBC 0.000 Nucleated RBC % (auto) 0.0 Sodium Potassium Chloride Carbon Dioxide Anion Gap BUN Creatinine Estim Creat Clear Calc Estimated GFR Random Glucose Fasting Glucose Calcium Total Bilirubin Direct Bilirubin AST ALT Alkaline Phosphatase Total Protein Albumin Triglycerides Cholesterol LDL Cholesterol, Calc HDL Cholesterol Urine Opiates Screen Not Detected Urine Fentanyl Screen Not Detected Ur Barbiturates Screen Not Detected Valproic Acid Ur Phencyclidine Scrn Not Detected Ur Amphetamines Screen Not Detected U Benzodiazepines Scrn Not Detected Urine Cocaine Screen Not Detected U Marijuana (THC) Screen Not Detected COVID-19 ([facility]) Negative COVID-19 Clin Com See Note 11/12/21 11/13/21 15:59 08:06 WBC RBC Hgb Hct MCV MCH MCHC RDW Plt Count MPV Immature Gran % (Auto) Neut % (Auto) Lymph % (Auto) [place] % (Auto) Eos % (Auto) Baso % (Auto) Lymph # (Auto) [place] # (Auto) Eos # (Auto) Baso # (Auto) Abs Immat Gran (auto) Absolute Neuts (auto) Absolute Nucleated RBC Nucleated RBC % (auto) Sodium 138 140 Potassium 4.6 4.6 Chloride 103 102 Carbon Dioxide 24 25 Anion Gap 16 18 BUN 13 13 Creatinine 0.75 0.86 Estim Creat Clear Calc 147.1 128.3 Estimated GFR > 60 > 60 Random Glucose 89 Fasting Glucose 85 Calcium 9.5 D 9.3 Total Bilirubin 0.2 0.5 Direct Bilirubin 0.2 AST 24 D 24 ALT 21 21 Alkaline Phosphatase 57 53 Total Protein 7.8 7.6 Albumin 4.4 4.0 Triglycerides 183 Cholesterol 294 D LDL Cholesterol, Calc 228 HDL Cholesterol 30 D Urine Opiates Screen Urine Fentanyl Screen Ur Barbiturates Screen Valproic Acid 3.5 L Ur Phencyclidine Scrn Ur Amphetamines Screen U Benzodiazepines Scrn Urine Cocaine Screen U Marijuana (THC) Screen COVID-19 ([facility]) COVID-19 Clin Com Meds/Allergies Allergies Allergies Allergy/AdvReac Type Severity Reaction Status Date / Time haloperidol [From Haldol] AdvReac Intermediate EPS Verified 08/21/21 11:47 lorazepam AdvReac Unknown Verified 11/12/21 15:13 Mental Status Exam Mental Status Exam Narrative: Pt is alert and oriented; behavior is cooperative, friendly and calm; patient is not in distress; dressed in casual attire and adequately groomed; mood is desc ribed as down and affect congruent, downcast; eye contact minimal; Speech is normal rate, volume and prosody and not pressured; psychomotor retardation present; thought process is organized and goal directed; Thought content is on tx but with numerous paranoid delusions, some that are upsetting, others that he embraces and with grandiosity; otherwise pertinent to relevant topics; passive wish; denies active SI; no HI. Patient denies AH (which is new); Patients insight and judgment are impaired Assessment & Plan Assessment & Plan (1) Schizoaffective disorder, bipolar type: Status: Acute Code(s): F25.0 - Schizoaffective disorder, bipolar type (2) Cannabis use disorder, mild, abuse: Status: Acute Code(s): F12.10 - Cannabis abuse, uncomplicated Plan HPI: Mr. Lockhart is a 26 year-old male with hx of schizoaffective disorder bipolar type, with chronic paranoid delusions, AH and who's had several admission to [facility], and was recently discharged from about 3 days ago where he was started on clozapine. Patient reports he was feeling better before discharged (although he was still quite delusional); however he says that he did not sweet pickle maker his medications right away and although he did not have a return of auditory hallucinations-which is new-he remembered all the things that the voices were saying and he found upsetting, getting him down. He started to feel like he will never have a normal life and hell never truly get better, feeling depressed. He denies any active SI but says he often wishes he would just not wake up the next day. Patient expresses continued delusional thinking, he says he is with a spirit snake and that the hospital knows but there does hiding it from everybody. He says he is the devil; that he can talk to animals. Patient is calm and seems depressed. He agrees to increasing clozapine. Impression Patient was recently started on clozapine and now does not have AVH which is new compared a past presentations; specification writer discussed case with JEREMY Caldwell who shares a similar perspective on patient's illness with specification writer; both agree that no medications have seem to to spell his paranoid delusions despite adequate doses and duration of Invega sustain and Zyprexa. Patient had dystonia from Haldol. At this time both agree that increasing clozapine is best avenue to reducing psychotic symptoms as hopefully it is the cause of current resolution of AVH PLAN: CV Q 15 minute checks Continue clozapine 100 mg in the morning Increase clozapine to 125 mg q.h.s. Continue Depakote Patient educated on: diagnosis and medication risk/benefits Informed Consent: understands, does not understand and further education needed Reason for continued inpatient stay Substantial Risk for: rapid decompensation
[2021-11-13 18:00] VITALS: BP 125/73; PULSE 89
[2021-11-13] MEDS: Divalproex Sodium ER 500 MG TAB.ER.24H 2000 MG PO (20:16)
[2021-11-13] MEDS: cloZAPine 100 MG, cloZAPine 25 MG 125 MG PO (20:16)
--- NOTE | 2021-11-13 21:20 | PC.NURSE ---
??Pt was observed pacing in the hallway and asked how he was doing. He went into a detailed description of his ongoing dialogue with , including: telepathically communicating with people in his neighborhood but they would not admit it; being tricked into fighting a war with God; communicating with a girl; (all in his mind) and having an inner spirit, who is a little boy he wants to take care of and does not want to lose or fail, and he feels like being unable to live like he wants is failing the inner spirit. ??Pt reports the hallucinations began when he stopped drinking alcohol and drinking is the only time they stop. He stated benzos took away the spirit and he is afraid of taking benzos for that reason, i.e. he does not want to lose the spirit. He stated when he was given Ativan in the past, he felt the spirit leave him and a nurse looked right at him at the moment the spirit left, and he felt it return later and she looked at him again because she knew. ??Pt rubbed his head and put his head in his hands a number of times during the conversation, stated, ?I don?t know how to explain what?s going on,? and ?I don?t want to sound crazy but the voices are real, I know they are.? ??Despite the torment he is experiencing, pt sts ?I just want to be normal and live a normal life. I want to have a job but instead I?m in the hospital,? and that?s not what he wants for the spirit dwelling in him. Provider aware.
[2021-11-14 06:00] VITALS: RESP 18
[2021-11-14 09:17] LABS: Neut%MD 66.7 %; Neutrophils Absolute Auto 6.6 x10*3/uL (2.0-8.3); WBCANC 9.8 X10*3/uL
[2021-11-14] MEDS: cloZAPine 100 MG TABLET PO (10:30)
[2021-11-14] MEDS: Sennosides/Docusate Sodium TABLET 2 TAB PO ×2 (10:30→19:46)
[2021-11-14] MEDS: Acetaminophen 325 MG TABLET 650 MG PO (11:32)
--- NOTE | 2021-11-14 14:40 | P.PNPSI_ITS ---
Subjective Subjective Date of Service: 11/14/21 Reason For Visit: Psychosis Interim History: last entry note for patient seen on 11/14 pt says he's alright. He continues to be w/out AH which he agrees is unusual and progress. Pt slept well. He thus agrees to have Clozapine increased further. He denies medication side-effects. He still has passive SI, but not active. Pt remains with paranoid delusions expressing such thoughts. No insight into delusions but insight that he needs medications. Mental Status Exam Mental Status Exam Narrative: Pt is alert and oriented; behavior is cooperative, friendly and calm; patient is not in distress; dressed in casual attire and adequately groomed; mood is described as down and affect congruent, downcast; eye contact minimal; Speech is normal rate, volume and prosody and not pressured; psychomotor retardation present; thought process is organized and goal directed; Thought content is on tx but with numerous paranoid delusions, some that are upsetting, others that he embraces and with grandiosity; otherwise pertinent to relevant topics; passive wish; denies active SI; no HI. Patient denies AH (which is new); Patie nts insight and judgment are impaired Diagnostics Vital Signs (24Hr): Vital Signs - 24 hr 11/15/21 17:15 11/16/21 06:00 Temperature 97.5 F 97.1 F Pulse Rate 122 H 100 Respiratory Rate 14 Blood Pressure 114/6 L 119/75 Pulse Oximetry 97 Oxygen Delivery Method Room Air BMI result Body Mass Index 29.0 Labs Results: 11/12/21 15:59 11/13/21 08:06 Medications Medications Current Medications Acetaminophen (Acetaminophen 325 Mg Tablet) 650 mg PO Q6H PRN PRN Reason: Headache/Pain Mild Scale (1-3) Last Admin: 11/14/21 11:32 Dose: 650 mg Al Hydroxide/Mg Hydroxide (Magnesium Hydrox/Alum Hydrox 30 Ml Oral.Susp) 30 ml PO Q6H PRN PRN Reason: Heartburn/Nausea Clozapine (Clozapine 100 Mg Tablet) 100 mg PO DAILY FANNIE Last Admin: 11/16/21 08:00 Dose: 100 mg Clozapine (Clozapine 25 Mg Tablet) 150 mg PO BEDTIME FANNIE Last Admin: 11/15/21 20:41 Dose: 150 mg Divalproex Sodium (Divalproex Sodium Er 500 Mg Tab.Er.24h) 2,000 mg PO BEDTIME [facility] Last Admin: 11/15/21 20:43 Dose: 2,000 mg Fluphenazine HCl (Fluphenazine Hcl 5 Mg Tablet) 5 mg PO Q6H PRN PRN Reason: agitation Hydroxyzine HCl (Hydroxyzine Hcl 50 Mg Tablet) 50 mg PO Q6H PRN PRN Reason: Anxiety Last Admin: 11/12/21 22:22 Dose: 50 mg Magnesium Hydroxide (Milk Of Magnesia 30 Ml Oral.Susp) 30 ml PO DAILY PRN PRN Reason: Constipation Nicotine (Nicotine 21 Mg Patch.Td24) 21 mg TRANSDERMA DAILY [facility] Last Admin: 11/16/21 08:02 Dose: Not Given Senna/Docusate Sodium (Sennosides/Docusate Sodium Tablet) 2 tab PO BID [facility] Last Admin: 11/16/21 08:00 Dose: 2 tab Trazodone HCl (Trazodone Hcl 100 Mg Tablet) 100 mg PO BEDTIME PRN PRN Reason: Insomnia Allergies Allergies Allergy/AdvReac Type Severity Reaction Status Date / Time haloperidol [From Haldol] AdvReac Intermediate EPS Verified 08/21/21 11:47 lorazepam AdvReac Unknown Verified 11/12/21 15:13 Assessment & Plan Assessment & Plan (1) Schizoaffective disorder, bipolar type: Status: Acute Code(s): F25.0 - Schizoaffective disorder, bipolar type (2) Cannabis use disorder, mild, abuse: Status: Acute Code(s): F12.10 - Cannabis abuse, uncomplicated Plan HPI: Mr. Lockhart is a 26 year-old male with hx of schizoaffective disorder bipolar type, with chronic paranoid delusions, AH and who's had several admission to [facility], and was recently discharged from about 3 days ago where he was started on clozapine. 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 He started to feel like he will never have a normal life and hell never truly get better, feeling depressed. He denies any active SI but says he often wishes he would just not wake up the next day. Patient expresses continued delusional thinking, he says he is with a spirit snake and that the hospital knows but there does hiding it from everybody. He says he is the devil; that he can talk to animals. Patient is calm and seems depressed. He agrees to increasing clozapine. Impression Patient was recently started on clozapine and now does not have AVH which is new compared a past presentations; filing writer discussed case with JEREMY Caldwell who shares a similar perspective on patient's illness with filing writer; both agree that no medications have seem to to spell his paranoid delusions despite adequate doses and duration of Invega sustain and Zyprexa. Patient had dystonia from Haldol. At this time both agree that increasing clozapine is best avenue to reducing psychotic symptoms as hopefully it is the cause of current resolution of AVH 11/14 PLAN: CV Q 15 minute checks Continue clozapine 100 mg in the morning Increase clozapine 150mg q.h.s. Continue Depakote I spent minutes with the patient and/or on the patient floor today, greater than?50% of which was spent counseling/coordinating care. Patient educated on: diagnosis and medication risk/benefits Informed Consent: understands and further education needed Reason for contiued inpatient stay Substantial Risk for: inability to function
[2021-11-14 16:16] VITALS: RESP 16
[2021-11-14] MEDS: cloZAPine 25 MG TABLET 150 MG PO (19:46)
[2021-11-14] MEDS: Divalproex Sodium ER 500 MG TAB.ER.24H 2000 MG PO (19:46)
[2021-11-15 06:00] VITALS: BP 134/88; PULSE 104; RESP 20; TEMP 36.4; O2SAT 96
[2021-11-15] MEDS: Sennosides/Docusate Sodium TABLET 2 TAB PO ×2 (10:11→20:42)
[2021-11-15] MEDS: cloZAPine 100 MG TABLET PO (10:11)
--- NOTE | 2021-11-15 12:32 | P.PNPSI_ITS ---
Subjective Subjective Date of Service: 11/15/21 Reason For Visit: Psychosis Interim History: Seen and discussed with RN. Patient reports he is feeling well today. He denies any hallucinations so far. Says his mood is OK. He denies SI. He has been compliant with medications. No side effects. Review of Systems Review of Systems Constitutional : No Fever, No Chills ENT/Mouth : No Ear Pain, No Nasal Congestion, No sore throat Eyes: No Eye Pain, No Swelling, No Redness Cardiovascular : No Chest Pain, No SOB Respiratory : No Cough, No Sputum, No Dyspnea Gastrointestinal : No Nausea, No Vomiting, No Diarrhea, No Hematochezia, No Melena Genitourinary : No Dysuria, No Urinary Frequency, No Hematuria Musculoskeletal : No Myalgias Skin : No Skin Lesions, No rash Neuro : No Weakness, No Numbness, No Paresthesias, No Dizziness, No Headache Psych : positive Anxiety, positive Depression, positive vague SI no plan, no HI, pos AH/VH Heme/Lymph: No Lymphadenopathy Endocrine : No Polyuria, No Polydipsia All other systems reviewed and are negative Mental Status Exam Mental Status Exam Narrative: Pt is alert and oriented; behavior is cooperative, friendly and calm; patient is not in distress; dressed in casual attire and adequately groomed; mood is described as good and affect congruent, downcast; eye contact minimal; Speech is normal rate, volume and prosody and not pressured; psychomotor retardation present; thought process is organized and goal directed; Thought content is on tx but with numerous paranoid delusions, some that are upsetting, others that he embraces and with grandiosity; otherwise pertinent to relevant topics; passive wish; denies active SI; no HI. Patient denies AH (which is new); Patients insight and judgment are impaired Diagnostics Vital Signs (24Hr): Vital Signs - 24 hr 11/14/21 16:16 11/15/21 06:00 Temperature 97.6 F Pulse Rate 104 H Respiratory Rate 16 20 Blood Pressure 134/88 Pulse Oximetry 96 BMI result Body Mass Index 29.0 Labs Results: 11/12/21 15:59 11/13/21 08:06 Labs: Laboratory Results - last 48 hr 11/14/21 08:01 Absolute Neuts (auto) 6.6 Medications Medications Current Medications Acetaminophen (Acetaminophen 325 Mg Tablet) 650 mg PO Q6H PRN PRN Reason: Headache/Pain Mild Scale (1-3) Last Admin: 11/14/21 11:32 Dose: 650 mg Al Hydroxide/Mg Hydroxide (Magnesium Hydrox/Alum Hydrox 30 Ml Oral.Susp) 30 ml PO Q6H PRN PRN Reason: Heartburn/Nausea Clozapine (Clozapine 100 Mg Tablet) 100 mg PO DAILY [facility] Last Admin: 11/15/21 10:11 Dose: 100 mg Clozapine (Clozapine 25 Mg Tablet) 150 mg PO BEDTIME [facility] Last Admin: 11/14/21 19:46 Dose: 150 mg Divalproex Sodium (Divalproex Sodium Er 500 Mg Tab.Er.24h) 2,000 mg PO BEDTIME [facility] Last Admin: 11/14/21 19:46 Dose: 2,000 mg Fluphenazine HCl (Fluphenazine Hcl 5 Mg Tablet) 5 mg PO Q6H PRN PRN Reason: agitation Hydroxyzine HCl (Hydroxyzine Hcl 50 Mg Tablet) 50 mg PO Q6H PRN PRN Reason: Anxiety Last Admin: 11/12/21 22:22 Dose: 50 mg Magnesium Hydroxide (Milk Of Magnesia 30 Ml Oral.Susp) 30 ml PO DAILY PRN PRN Reason: Constipation Nicotine (Nicotine 21 Mg Patch.Td24) 21 mg TRANSDERMA DAILY [facility] Last Admin: 11/15/21 10:14 Dose: Not Given Senna/Docusate Sodium (Sennosides/Docusate Sodium Tablet) 2 tab PO BID [facility] Last Admin: 11/15/21 10:11 Dose: 2 tab Trazodone HCl (Trazodone Hcl 100 Mg Tablet) 100 mg PO BEDTIME PRN PRN Reason: Insomnia Allergies Allergies Allergy/AdvReac Type Severity Reaction Status Date / Time haloperidol [From Haldol] AdvReac Intermediate EPS Verified 08/21/21 11:47 lorazepam AdvReac Unknown Verified 11/12/21 15:13 Assessment & Plan Assessment & Plan (1) Schizoaffective disorder, bipolar type: Status: Acute Code(s): F25.0 - Schizoaffective disorder, bipolar type (2) Cannabis use disorder, mild, abuse: Status: Acute Code(s): F12.10 - Cannabis abuse, uncomplicated Plan HPI: Mr. Lockhart is a 26 year-old male with hx of schizoaffective disorder bipolar type, with chronic paranoid delusions, AH and who's had several admission to [facility], and was recently discharged from about 3 days ago where he was started on clozapine. 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 He started to feel like he will never have a normal life and hell never truly get better, feeling depressed. He denies any active SI but says he often wishes he would just not wake up the next day. Patient expresses continued delusional thinking, he says he is with a spirit snake and that the hospital knows but there does hi ding it from everybody. He says he is the devil; that he can talk to animals. Patient is calm and seems depressed. He agrees to increasing clozapine. 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 Patient had dystonia from Haldol. At this time both agree that increasing clozapine is best avenue to reducing psychotic symptoms as hopefully it is the cause of current resolution of AVH PLAN: CV Q 15 minute checks Continue clozapine 100 mg in the morning Increase clozapine to 125 mg q.h.s. Continue Depakote 11/15: Continue treatment plan. I spent minutes with the patient and/or on the patient floor today, greater than?50% of which was spent counseling/coordinating care. Reason for contiued inpatient stay Substantial Risk for: inability to function and rapid decompensation
[2021-11-15 17:15] VITALS: BP 114/6; PULSE 122; TEMP 36.4
[2021-11-15] MEDS: cloZAPine 25 MG TABLET 150 MG PO (20:41)
[2021-11-15] MEDS: Divalproex Sodium ER 500 MG TAB.ER.24H 2000 MG PO (20:43)
[2021-11-16 06:00] VITALS: BP 119/75; PULSE 100; RESP 14; TEMP 36.2; O2SAT 97
[2021-11-16] MEDS: Sennosides/Docusate Sodium TABLET 2 TAB PO ×2 (08:00→19:50)
[2021-11-16] MEDS: cloZAPine 100 MG TABLET PO (08:00)
--- NOTE | 2021-11-16 14:36 | P.PNPSI_ITS ---
Subjective Subjective Date of Service: 11/16/21 Reason For Visit: Psychosis Interim History: Patient was seen and discussed with the team. Patient was seen in his room. He was laying in bed. He appeared tired. reported that he feels well at 1st. Then patient started saying that he has a young soul inside of me and I'm protecting it and the medication here in the hospital makes that soul leave me which is upsetting for him. He was talking about delusional material includi ng talking to animals and Having visions and voices. Patient denies suicidal ideation. Has been compliant medications. Mostly isolated. Review of Systems Review of Systems Constitutional : No Fever, No Chills ENT/Mouth : No Ear Pain, No Nasal Congestion, No sore throat Eyes: No Eye Pain, No Swelling, No Redness Cardiovascular : No Chest Pain, No SOB Respiratory : No Cough, No Sputum, No Dyspnea Gastrointestinal : No Nausea, No Vomiting, No Diarrhea, No Hematochezia, No Melena Genitourinary : No Dysuria, No Urinary Frequency, No Hematuria Musculoskeletal : No Myalgias Skin : No Skin Lesions, No rash Neuro : No Weakness, No Numbness, No Paresthesias, No Dizziness, No Headache Psych : positive Anxiety, positive Depression, positive vague SI no plan, no HI, pos AH/VH Heme/Lymph: No Lymphadenopathy Endocrine : No Polyuria, No Polydipsia All other systems reviewed and are negative Mental Status Exam Mental Status Exam Narrative: Pt is alert and oriented; behavior is cooperative, friendly and calm; patient is not in distress; dressed in casual attire and adequately groomed; mood is described as down and affect congruent, downcast; eye contact minimal; Speech is normal rate, volume and prosody and not pressured; psychomotor retardation present; thought process is organized and goal directed; Thought content is on tx but with numerous paranoid delusions, some that are upsetting, others that he embraces and with grandiosity; otherwise pertinent to relevant topics; passive wish; denies active SI; no HI. Patient denies AH (which is new); Patients insight and judgment are impaired Diagnostics Vital Signs (24Hr): Vital Signs - 24 hr 11/16/21 06:00 11/16/21 15:56 Temperature 97.1 F 98.6 F Pulse Rate 100 125 H Respiratory Rate 14 Blood Pressure 119/75 124/84 Pulse Oximetry 97 Oxygen Delivery Method Room Air BMI result Body Mass Index 29.0 Labs Results: 11/12/21 15:59 11/13/21 08:06 Medications Medications Current Medications Acetaminophen (Acetaminophen 325 Mg Tablet) 650 mg PO Q6H PRN PRN Reason: Headache/Pain Mild Scale (1-3) Last Admin: 11/14/21 11:32 Dose: 650 mg Al Hydroxide/Mg Hydroxide (Magnesium Hydrox/Alum Hydrox 30 Ml Oral.Susp) 30 ml PO Q6H PRN PRN Reason: Heartburn/Nausea Clozapine (Clozapine 100 Mg Tablet) 100 mg PO DAILY [facility] Last Admin: 11/16/21 08:00 Dose: 100 mg Clozapine (Clozapine 25 Mg Tablet) 175 mg PO BEDTIME [facility] Divalproex Sodium (Divalproex Sodium Er 500 Mg Tab.Er.24h) 2,000 mg PO BEDTIME [facility] Last Admin: 11/15/21 20:43 Dose: 2,000 mg Fluphenazine HCl (Fluphenazine Hcl 5 Mg Tablet) 5 mg PO Q6H PRN PRN Reason: agitation Hydroxyzine HCl (Hydroxyzine Hcl 50 Mg Tablet) 50 mg PO Q6H PRN PRN Reason: Anxiety Last Admin: 11/12/21 22:22 Dose: 50 mg Magnesium Hydroxide (Milk Of Magnesia 30 Ml Oral.Susp) 30 ml PO DAILY PRN PRN Reason: Constipation Nicotine (Nicotine 21 Mg Patch.Td24) 21 mg TRANSDERMA DAILY [facility] Last Admin: 11/16/21 08:02 Dose: Not Given Senna/Docusate Sodium (Sennosides/Docusate Sodium Tablet) 2 tab PO BID [facility] Last Admin: 11/16/21 08:00 Dose: 2 tab Trazodone HCl (Trazodone Hcl 100 Mg Tablet) 100 mg PO BEDTIME PRN PRN Reason: Insomnia Allergies Allergies Allergy/AdvReac Type Severity Reaction Status Date / Time haloperidol [From Haldol] AdvReac Intermediate EPS Verified 08/21/21 11:47 lorazepam AdvReac Unknown Verified 11/12/21 15:13 Assessment & Plan Assessment & Plan (1) Schizoaffective disorder, bipolar type: Status: Acute Code(s): F25.0 - Schizoaffective disorder, bipolar type (2) Cannabis use disorder, mild, abuse: Status: Acute Code(s): F12.10 - Cannabis abuse, uncomplicated Plan HPI: Mr. Lockhart is a 26 year-old male with hx of schizoaffective disorder bipolar type, with chronic paranoid delusions, AH and who's had several admission to [facility], and was recently discharged from about 3 days ago where he was started on clozapine. 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 He started to feel like he will never have a normal life and hell never truly get better, feeling depressed. He denies any active SI but says he often wishes he would just not wake up the next day. Patient expresses continued delusional thinking, he says he is with a spirit snake and that the hospital knows but there does hiding it from everybody. He says he is the devil; that he can talk to animals. Patient is calm and seems depressed. He agrees to increasing clozapine. 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 Patient had dystonia from Haldol. At this time both agree that increasing clozapine is best avenue to reducing psychotic symptoms as hopefully it is the cause of current resolution of AVH 11/14 PLAN: CV Q 15 minute checks Continue clozapine 100 mg in the morning clozapine 175 mg q.h.s. Continue Depakote I spent minutes with the patient and/or on the patient floor today, greater than?50% of which was spent counseling/coordinating care. Reason for contiued inpatient stay Substantial Risk for: inability to function and rapid decompensation
[2021-11-16 15:56] VITALS: BP 124/84; PULSE 125; TEMP 37
[2021-11-16] MEDS: Divalproex Sodium ER 500 MG TAB.ER.24H 2000 MG PO (19:52)
[2021-11-16] MEDS: cloZAPine 25 MG TABLET 175 MG PO (19:52)
--- NOTE | 2021-11-17 10:17 | HO.PSYCHPN ---
Subjective Subjective Date of Service: 11/17/21 Reason For Visit: Psychosis Interim History: Patient says he is feeling better. He says he thinks the medications are working. He continues to say he has no auditory hallucinations at all. He also says that he is not really switching back and forth as much between thinking he is good and evil. The delusional thoughts are still there but he says they are less bothersome. He also reports he is feeling overall calmer and less sad. Patient still struggles with reality testing and has some delusions saying there are 3 people that he has telecommunication with and also that he talked to a dog and the dog responded. But he says he is trying to put that behind him. Patient complains of having excessive salivation and agrees to a trial of a medication to relieve this. Patient denies any SI and says he is feeling more hopeful. Mental Status Exam Mental Status Exam Narrative: Pt is alert and oriented; behavior is cooperative, friendly and calm; patient is not in distress; dressed in casual attire and adequately groomed; mood is described as Better and affect congruent, brighter, calm; eye contact minimal; Speech is normal rate, volume and prosody and not pressured; psychomotor retardation present; thought process is organized and goal directed; Thought content is on tx, coping with delsuional thoughts, but less bothered by them; otherwise pertinent to relevant topics; denies any SI; no HI. Patient denies AH; Patients insight and judgment are impaired but improved and adequate Diagnostics Vital Signs (24Hr): Vital Signs - 24 hr 11/16/21 15:56 Temperature 98.6 F Pulse Rate 125 H Blood Pressure 124/84 BMI result Body Mass Index 29.0 Labs Results: 11/12/21 15:59 11/13/21 08:06 Medications Medications Current Medications Acetaminophen (Acetaminophen 325 Mg Tablet) 650 mg PO Q6H PRN PRN Reason: Headache/Pain Mild Scale (1-3) Last Admin: 11/14/21 11:32 Dose: 650 mg Al Hydroxide/Mg Hydroxide (Magnesium Hydrox/Alum Hydrox 30 Ml Oral.Susp) 30 ml PO Q6H PRN PRN Reason: Heartburn/Nausea Clozapine (Clozapine 100 Mg Tablet) 100 mg PO DAILY [facility] Last Admin: 11/16/21 08:00 Dose: 100 mg Clozapine (Clozapine 100 Mg Tablet) 200 mg PO BEDTIME [facility] Divalproex Sodium (Divalproex Sodium Er 500 Mg Tab.Er.24h) 2,000 mg PO BEDTIME [facility] Last Admin: 11/16/21 19:52 Dose: 2,000 mg Fluphenazine HCl (Fluphenazine Hcl 5 Mg Tablet) 5 mg PO Q6H PRN PRN Reason: agitation Hydroxyzine HCl (Hydroxyzine Hcl 50 Mg Tablet) 50 mg PO Q6H PRN PRN Reason: Anxiety Last Admin: 11/12/21 22:22 Dose: 50 mg Magnesium Hydroxide (Milk Of Magnesia 30 Ml Oral.Susp) 30 ml PO DAILY PRN PRN Reason: Constipation Nicotine (Nicotine 21 Mg Patch.Td24) 21 mg TRANSDERMA DAILY [facility] Last Admin: 11/16/21 08:02 Dose: Not Given Senna/Docusate Sodium (Sennosides/Docusate Sodium Tablet) 2 tab PO BID [facility] Last Admin: 11/16/21 19:50 Dose: 2 tab Trazodone HCl (Trazodone Hcl 100 Mg Tablet) 100 mg PO BEDTIME PRN PRN Reason: Insomnia Allergies Allergies Allergy/AdvReac Type Severity Reaction Status Date / Time haloperidol [From Haldol] AdvReac Intermediate EPS Verified 08/21/21 11:47 lorazepam AdvReac Unknown Verified 11/12/21 15:13 Assessment & Plan Assessment & Plan (1) Schizoaffective disorder, bipolar type: Status: Acute Code(s): F25.0 - Schizoaffective disorder, bipolar type (2) Cannabis use disorder, mild, abuse: Status: Acute Code(s): F12.10 - Cannabis abuse, uncomplicated Plan HPI: Mr. Lockhart is a 26 year-old male with hx of schizoaffective disorder bipolar type, with chronic paranoid delusions, AH and who's had several admission to [facility], and was recently discharged from about 3 days ago where he was started on clozapine. 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 He started to feel like he will never have a normal life and hell never truly get better, feeling depressed. He denies any active SI but says he often wishes he would just not wake up the next day. Patient expresses continued delusional thinking, he says he is with a spirit snake and that the hospital knows but there does hiding it from everybody. He says he is the devil; that he can talk to animals. Patient is calm and seems depressed. He agrees to increasing clozapine. 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 Patient had dystonia from Haldol. At this time both agree that increasing clozapine is best avenue to reducing psychotic symptoms as hopefully it is the cause of current resolution of AVH 11/17 Patient reports that he is feeling better. Remains without any AH; still has delusional but feels less bothered by them. Excessive salivation will start glycoprrolate PLAN: CV Q 15 minute checks start glycoprrolate 1mg BID for Excessive salivation Continue clozapine 100 mg in the morning clozapine 200 mg q.h.s. Continue Depakote I spent minutes with the patient and/or on the patient floor today, greater than?50% of which was spent counseling/coordinating care. Patient educated on: diagnosis, medication risk/benefits and therapeutic strategies Informed Consent: understands Reason for contiued inpatient stay Substantial Risk for: stable for discharge
[2021-11-17] MEDS: cloZAPine 100 MG TABLET PO (10:55)
[2021-11-17] MEDS: Sennosides/Docusate Sodium TABLET 2 TAB PO ×2 (10:55→19:31)
[2021-11-17] MEDS: Nicotine 21 MG PATCH.TD24 TRANSDERMA (12:53)
[2021-11-17 16:21] VITALS: BP 98/65; PULSE 125
--- NOTE | 2021-11-17 17:35 | PC.NURSE ---
Pt signed a 3-day notice on 11/17/21, up on 11/20/21
[2021-11-17] MEDS: Divalproex Sodium ER 500 MG TAB.ER.24H 2000 MG PO (19:32)
[2021-11-17] MEDS: cloZAPine 100 MG TABLET 200 MG PO (19:32)
[2021-11-18] MEDS: Glycopyrrolate 1 MG TABLET PO ×2 (11:14→20:29)
[2021-11-18] MEDS: Sennosides/Docusate Sodium TABLET 2 TAB PO ×2 (11:14→20:30)
[2021-11-18] MEDS: cloZAPine 100 MG TABLET PO (11:14)
[2021-11-18 18:00] VITALS: BP 133/67; PULSE 101; TEMP 36.6; O2SAT 97
[2021-11-18] MEDS: Divalproex Sodium ER 500 MG TAB.ER.24H 2000 MG PO (20:29)
[2021-11-18] MEDS: cloZAPine 100 MG TABLET 200 MG PO (20:30)
--- NOTE | 2021-11-18 21:56 | HO.PSYCHPN ---
Subjective Subjective Date of Service: 11/18/21 Reason For Visit: Psychosis Interim History: Patient reports that he is Good. No AH, no SI, still some delusions but he says he is able to ignore it. Patient placed a 3 day. Patient Scheduling Coordinator encouraged him to stay longer but patient says he is feeling good and thinks it is okay for him to go home. Patient continues to report feeling hopeful that this medication will help him get his life back. Mental Status Exam Mental Status Exam Narrative: Pt is alert and oriented; behavior is cooperative, friendly and calm; patient is not in distress; dressed in casual attire and adequately groomed; mood is described as good and affect congruent, brighter, calm; eye contact minimal; Speech is normal rate, volume and prosody and not pressured; psychomotor retardation present; thought process is organized and goal directed; Thought content is on tx, coping with delsuional thoughts, but they are less frequent and able to be ignored; otherwise pertinent to relevant topics; denies any SI; no HI. Patient denies AH; Patients insight and judgment are impaired but improved and adequate Diagnostics Vital Signs (24Hr): Vital Signs - 24 hr 11/18/21 18:00 Temperature 98 F Pulse Rate 101 H Blood Pressure 133/67 Pulse Oximetry 97 Oxygen Delivery Method Room Air BMI result Body Mass Index 29.0 Labs Results: 11/12/21 15:59 11/13/21 08:06 Medications Medications Current Medications Acetaminophen (Acetaminophen 325 Mg Tablet) 650 mg PO Q6H PRN PRN Reason: Headache/Pain Mild Scale (1-3) Last Admin: 11/14/21 11:32 Dose: 650 mg Al Hydroxide/Mg Hydroxide (Magnesium Hydrox/Alum Hydrox 30 Ml Oral.Susp) 30 ml PO Q6H PRN PRN Reason: Heartburn/Nausea Clozapine (Clozapine 100 Mg Tablet) 100 mg PO DAILY [facility] Last Admin: 11/18/21 11:14 Dose: 100 mg Clozapine (Clozapine 100 Mg Tablet) 200 mg PO BEDTIME FANNIE Last Admin: 11/18/21 20:30 Dose: 200 mg Divalproex Sodium (Divalproex Sodium Er 500 Mg Tab.Er.24h) 2,000 mg PO BEDTIME FANNIE Last Admin: 11/18/21 20:29 Dose: 2,000 mg Fluphenazine HCl (Fluphenazine Hcl 5 Mg Tablet) 5 mg PO Q6H PRN PRN Reason: agitation Glycopyrrolate (Glycopyrrolate 1 Mg Tablet) 1 mg PO BID [facility] Last Admin: 11/18/21 20:29 Dose: 1 mg Hydroxyzine HCl (Hydroxyzine Hcl 50 Mg Tablet) 50 mg PO Q6H PRN PRN Reason: Anxiety Last Admin: 11/12/21 22:22 Dose: 50 mg Loperamide HCl (Loperamide Hcl 2 Mg Capsule) 2 mg PO Q4H PRN PRN Reason: Loose Stool Magnesium Hydroxide (Milk Of Magnesia 30 Ml Oral.Susp) 30 ml PO DAILY PRN PRN Reason: Constipation Nicotine (Nicotine 21 Mg Patch.Td24) 21 mg TRANSDERMA DAILY [facility] Last Admin: 11/17/21 12:53 Dose: 21 mg Senna/Docusate Sodium (Sennosides/Docusate Sodium Tablet) 2 tab PO BID [facility] Last Admin: 11/18/21 20:30 Dose: 2 tab Trazodone HCl (Trazodone Hcl 100 Mg Tablet) 100 mg PO BEDTIME PRN PRN Reason: Insomnia Allergies Allergies Allergy/AdvReac Type Severity Reaction Status Date / Time haloperidol [From Haldol] AdvReac Intermediate EPS Verified 08/21/21 11:47 lorazepam AdvReac Unknown Verified 11/12/21 15:13 Assessment & Plan Assessment & Plan (1) Schizoaffective disorder, bipolar type: Status: Acute Code(s): F25.0 - Schizoaffective disorder, bipolar type (2) Cannabis use disorder, mild, abuse: Status: Acute Code(s): F12.10 - Cannabis abuse, uncomplicated Plan HPI: Mr. Lockhart is a 26 year-old male with hx of schizoaffective disorder bipolar type, with chronic paranoid delusions, AH and who's had several admission to [facility], and was recently discharged from about 3 days ago where he was started on clozapine. Patient reports he was feeling better before discharged (although he was still quite delusional); however he says that he did not pickling grader his medications right away and although he did not have a return of auditory hallucinations-which is new-he remembered all the things that the voices were saying and he found upsetting, getting him down. He started to feel like he will never have a normal life and hell never truly get better, feeling depressed. He denies any active SI but says he often wishes he would just not wake up the next day. Patient expresses continued delusional thinking, he says he is with a spirit snake and that the hospital knows but there does hiding it from everybody. He says he is the devil; that he can talk to animals. Patient is calm and seems depressed. He agrees to increasing clozapine. Impression Patient was recently started on clozapine and now does not have AVH which is new compared a past presentations; medical underwriter discussed case with JEREMY Caldwell who shares a similar perspective on patient's illness with medical underwriter; both agree that no medications have seem to to spell his paranoid delusions despite adequate doses and duration of Invega sustain and Zyprexa. Patient had dystonia from Haldol. At this time both agree that increasing clozapine is best avenue to reducing psychotic symptoms as hopefully it is the cause of current resolution of AVH 11/17 Patient reports that he is feeling better. Remains without any AH; still has delusional but feels less bothered by them. Excessive salivation will start glycoprrolate 11/18 Patient remains in a good mood, no SI; no AVH and delusions continue to reducing frequency and intensity. At this point he says he is able to ignore them. Patient placed a 3 day saying he is ready to go home. Patient Scheduling Coordinator asks if he would stay longer just to continue to monitor and see if adjustments need to be made but he wants to go home. Says the glycopyrrolate helped a little but it is still present especially at nighttime. Patient has remained with appropriate behaviors and good impulse control; he is appropriate with peers and staff. Mostly keeps himself not really attending groups. PLAN: 3 day Q 15 minute checks start glycoprrolate 1mg BID for Excessive salivation Continue clozapine 100 mg in the morning clozapine 200 mg q.h.s. Continue Depakote I spent minutes with the patient and/or on the patient floor today, greater than?50% of which was spent counseling/coordinating care. Patient educated on: diagnosis, medication risk/benefits and therapeutic strategies Informed Consent: understands Reason for contiued inpatient stay Substantial Risk for: stable for discharge
[2021-11-19 09:15] VITALS: BP 128/72; PULSE 88; RESP 16; TEMP 36.6; O2SAT 98
[2021-11-19] MEDS: Glycopyrrolate 1 MG TABLET PO (09:24)
[2021-11-19] MEDS: cloZAPine 100 MG TABLET PO (09:24)
[2021-11-19] MEDS: Sennosides/Docusate Sodium TABLET 2 TAB PO ×2 (09:24→21:30)
[2021-11-19] MEDS: Nicotine 21 MG PATCH.TD24 TRANSDERMA (09:24)
[2021-11-19 16:31] VITALS: BP 135/85; PULSE 131; RESP 18; TEMP 36.7; O2SAT 97
--- NOTE | 2021-11-19 18:21 | P.PNPSI_ITS ---
Subjective Subjective Date of Service: 11/19/21 Reason For Visit: Psychosis Interim History: Remains in good mood; no AVH no SI; delusional Thoughts remain able to be ignored patient says he just Wants to move beyond. Patient continues to want discharge tomorrow. He agrees to continue taking medications and is enthusiastic because he feels they are finally working the way he is hoped they would. Patient agrees to continue getting weekly blood draws. Mental Status Exam Mental Status Exam Narrative: Pt is alert and oriented; behavior is cooperative, friendly and calm; patient is not in distress; dressed in casual attire and adequately groomed; mood is described as good and affect congruent, brighter, calm; eye contact minimal; Speech is normal rate, volume and prosody and not pressured; psychomotor retardation present; thought process is organized and goal directed; Thought content is on tx, coping with delsuional thoughts, but they are less frequent and able to be ignored; otherwise pertinent to relevant topics; denies any SI; no HI. Patient denies AH; Patients insight and judgment are impaired but significantly improved and are fair and adequate (and beyond baseline) Diagnostics Vital Signs (24Hr): Vital Signs - 24 hr 11/19/21 09:15 11/19/21 16:31 Temperature 97.9 F 98.0 F Pulse Rate 88 131 H Respiratory Rate 16 18 Blood Pressure 128/72 135/85 Pulse Oximetry 98 97 Oxygen Delivery Method Room Air Room Air BMI result Body Mass Index 29.0 Labs Results: 11/12/21 15:59 11/13/21 08:06 Medications Medications Current Medications Acetaminophen (Acetaminophen 325 Mg Tablet) 650 mg PO Q6H PRN PRN Reason: Headache/Pain Mild Scale (1-3) Last Admin: 11/14/21 11:32 Dose: 650 mg Al Hydroxide/Mg Hydroxide (Magnesium Hydrox/Alum Hydrox 30 Ml Oral.Susp) 30 ml PO Q6H PRN PRN Reason: Heartburn/Nausea Clozapine (Clozapine 100 Mg Tablet) 100 mg PO DAILY FANNIE Last Admin: 11/19/21 09:24 Dose: 100 mg Clozapine (Clozapine 100 Mg Tablet) 200 mg PO BEDTIME FANNIE Last Admin: 11/18/21 20:30 Dose: 200 mg Divalproex Sodium (Divalproex Sodium Er 500 Mg Tab.Er.24h) 2,000 mg PO BEDTIME FANNIE Last Admin: 11/18/21 20:29 Dose: 2,000 mg Fluphenazine HCl (Fluphenazine Hcl 5 Mg Tablet) 5 mg PO Q6H PRN PRN Reason: agitation Glycopyrrolate (Glycopyrrolate 1 Mg Tablet) 1 mg PO DAILY [facility] Glycopyrrolate (Glycopyrrolate 1 Mg Tablet) 2 mg PO BEDTIME FANNIE Hydroxyzine HCl (Hydroxyzine Hcl 50 Mg Tablet) 50 mg PO Q6H PRN PRN Reason: Anxiety Last Admin: 11/12/21 22:22 Dose: 50 mg Loperamide HCl (Loperamide Hcl 2 Mg Capsule) 2 mg PO Q4H PRN PRN Reason: Loose Stool Magnesium Hydroxide (Milk Of Magnesia 30 Ml Oral.Susp) 30 ml PO DAILY PRN PRN Reason: Constipation Nicotine (Nicotine 21 Mg Patch.Td24) 21 mg TRANSDERMA DAILY [facility] Last Admin: 11/19/21 09:24 Dose: 21 mg Senna/Docusate Sodium (Sennosides/Docusate Sodium Tablet) 2 tab PO BID [facility] Last Admin: 11/19/21 09:24 Dose: 2 tab Trazodone HCl (Trazodone Hcl 100 Mg Tablet) 100 mg PO BEDTIME PRN PRN Reason: Insomnia Allergies Allergies Allergy/AdvReac Type Severity Reaction Status Date / Time haloperidol [From Haldol] AdvReac Intermediate EPS Verified 08/21/21 11:47 lorazepam AdvReac Unknown Verified 11/12/21 15:13 Assessment & Plan Assessment & Plan (1) Schizoaffective disorder, bipolar type: Status: Acute Code(s): F25.0 - Schizoaffective disorder, bipolar type (2) Cannabis use disorder, mild, abuse: Status: Acute Code(s): F12.10 - Cannabis abuse, uncomplicated Plan HPI: Mr. Lockhart is a 26 year-old male with hx of schizoaffective disorder bipolar type, with chronic paranoid delusions, AH and who's had several admission to [facility], and was recently discharged from about 3 days ago where he was started on clozapine. 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 He started to feel like he will never have a normal life and hell never truly get better, feeling depressed. He denies any active SI but says he often wishes he would just not wake up the next day. Patient expresses continued delusional thinking, he says he is with a spirit snake and that the hospital knows but there does h iding it from everybody. He says he is the devil; that he can talk to animals. Patient is calm and seems depressed. He agrees to increasing clozapine. Impression Patient was recently started on clozapine and now does not have AVH which is new compared a past presentations; assembly instructions writer discussed case with JEREMY Caldwell who shares a similar perspective on patient's illness with assembly instructions writer; both agree that no medications have seem to to spell his paranoid delusions despite adequate doses and duration of Invega sustain and Zyprexa.? Patient had dystonia from Haldol.? At this time both agree that increasing clozapine is best avenue to reducing psychotic symptoms as hopefully it is the cause of current resolution of AVH 11/17 Patient reports that he is feeling better.? Remains without any AH; still has delusional but feels less bothered by them.? Excessive salivation will start glycoprrolate 11/18 Patient remains in a good mood, no SI; no AVH and delusions continue to reducing frequency and intensity.? At this point he says he is able to ignore them.? Patient placed a 3 day saying he is ready to go home.? Licensing Services Clerk asks if he would stay longer just to continue to monitor and see if adjustments need to be made but he wants to go home.? Says the glycopyrrolate helped a little but it is still present especially at nighttime.? Patient has remained with appropriate behaviors and good impulse control; he is appropriate with peers and staff.? Mostly keeps himself not really attending groups. 11/19 Patient remains stable; patient has surpassed his former baseline. Continues to be optimistic, no AVH no SI, delusional thinking able to be ignored. Would like to discharge tomorrow. Says will continue taking medications. Patient has had numerous psychiatric hospitalizations, Often re-presented within days of discharge; he remains vulnerable for relapse with substance abuse and Mood any emotional decompensation; however these are chronic issues For patient of which is well aware. Currently he is doing better than assembly instructions writer has ever seen him and staff who know him well concur. Patient is hopeful and optimistic that he can remain stable and that current medication regimen will remain as helpful as he is currently experiencing. Patient is not in imminent risk for harm to self or others and his request for discharge honored. PLAN: 3 day Q 15 minute checks continue glycoprrolate 1mg daily Increased glycoprrolate to 2mg qhs for Excessive salivation Continue clozapine 100 mg in the morning ?clozapine 200 mg q.h.s. get ANC Continue Depakote I spent minutes with the patient and/or on the patient floor today, greater than?50% of which was spent counseling/coordinating care. Patient educated on: diagnosis, medication risk/benefits and therapeutic strategies Informed Consent: understands Reason for contiued inpatient stay Substantial Risk for: stable for discharge
[2021-11-19] MEDS: cloZAPine 100 MG TABLET 200 MG PO (21:30)
[2021-11-19] MEDS: Divalproex Sodium ER 500 MG TAB.ER.24H 2000 MG PO (21:30)
[2021-11-19] MEDS: Glycopyrrolate 1 MG TABLET 2 MG PO (21:31)
[2021-11-19] MEDS: traZODone HCL 100 MG TABLET PO (21:33)
[2021-11-20 07:00] VITALS: BMI 29.1
[2021-11-20 09:00] VITALS: BP 132/80; PULSE 128; RESP 18; TEMP 36.6; O2SAT 97
[2021-11-20] MEDS: Sennosides/Docusate Sodium TABLET 2 TAB PO (09:12)
[2021-11-20] MEDS: Glycopyrrolate 1 MG TABLET PO (09:13)
[2021-11-20] MEDS: cloZAPine 100 MG TABLET PO (09:13)
[2021-11-20] MEDS: Nicotine 21 MG PATCH.TD24 TRANSDERMA (09:14)
--- NOTE | 2021-11-20 09:18 | PM.PSYDC ---
DS: Providers Provider Date of Service: 11/20/21 Date of admission: 11/12/21 20:09 Date of discharge: 11/20/21 Primary care physician: [facility] Attending physician on admission: George Cat Attending physician on discharge: George Cat DS: Diagnosis Discharge Diagnosis (1) Schizoaffective disorder, bipolar type: Status: Acute (2) Cannabis use disorder, mild, abuse: Status: Acute DS: Medications Discharge Medications Home Medications: Previous Rx's Medication Instructions Recorded polyethylene glycol 3350 17 gram 17 g PO BID PRN constipation #30 ea 11/10/21 oral powder packet sennosides 8.6 mg-docusate sodium 2 tab PO BID #120 tabs 11/10/21 50 mg tablet (Senna Plus) trazodone 100 mg tablet 100 mg PO BEDTIME PRN Insomnia #30 11/10/21 tabs clozapine 100 mg tablet See Rx Instructions .Route 11/20/21 .COMPLEX 30 days #90 tabs divalproex 500 mg tablet,extended 2,000 mg PO BEDTIME 30 days #120 11/20/21 release 24 hr tabs glycopyrrolate 1 mg tablet See Rx Instructions .Route 11/20/21 .COMPLEX 30 days #90 tabs nicotine 21 mg/24 hr daily 21 mg transdermal DAILY 28 days 11/20/21 transdermal patch #28 ea Mental Status Exam Mental Status Exam Narrative: Pt is alert and oriented; behavior is cooperative, friendly and calm; patient is not in distress; dressed in casual attire and adequately groomed; mood is described as good and affect congruent, brighter, calm; eye contact minimal; Speech is normal rate, volume and prosody and not pressured; psychomotor retardation present; thought process is organized and goal directed; Thought content is on tx, coping with delsuional thoughts, but they are less frequent and able to be ignored; otherwise pertinent to relevant topics; denies any SI; no HI. Patient denies AH; Patients insight and judgment are impaired but significantly improved and are fair and adequate (and beyond baseline) Data Data Completed and Pending Completed studies during hospitalization [Text1]: 11/14/21 11/18/21 08:01 10:44 Absolute Neuts (auto) 6.6 Clozapine Pending Norclozapine Pending DS: Summary Hospital Course Hospital Course: HPI: Mr. Lockhart is a 26 year-old male with hx of schizoaffective disorder bipolar type, with chronic paranoid delusions, AH and who's had several admission to [facility], and was recently discharged from about 3 days ago where he was started on clozapine.? Patient reports he was feeling better before discharged (although he was still quite delusional); however he says that he did not cone picker his medications right away and although he did not have a return of auditory hallucinations-which is new-he remembered all the things that the voices were saying and he found upsetting, getting him down.? He started to feel like he will never have a normal life and hell never truly get better, feeling depressed.? He denies any active SI but says he often wishes he would just not wake up the next day.? Patient expresses continued delusional thinking, he says he is with a spirit snake and that the hospital knows but there does hiding it from everybody.? He says he is the devil; that he can talk to animals.? Patient is calm and seems depressed.? He agrees to increasing clozapine. Impression and Hospital course: Patient was recently started on clozapine and now does not have AVH which is new compared a past presentations; ad copy writer discussed case with JEREMY Caldwell who shares a similar perspective on patient's illness with ad copy writer; both agree that no medications have seem to to spell his paranoid delusions despite adequate doses and duration of Invega sustain and Zyprexa.? Patient had dystonia from Haldol.? At this time both agree that increasing clozapine is best avenue to reducing psychotic symptoms as hopefully it is the cause of current resolution of AVH. Discussed this with patient who also fully agrees with increasing clozapine and is fine with getting weekly blood draws. Clozapine Titrated until it was 100 mg daily and 200 mg at bedtime. 11/17 Patient reports that he is feeling better.? Remains without any AH; still has delusional but feels less bothered by them.? Excessive salivation will start glycoprrolate 11/18 Patient remains in a good mood, no SI; no AVH and delusions continue to reducing frequency and intensity.? At this point he says he is able to ignore them.? Patient placed a 3 day saying he is ready to go home.? Pipe Threading Machine Operator asks if he would stay longer just to continue to monitor and see if adjustments need to be made but he wants to go home.? Says the glycopyrrolate helped a little but it is still present especially at nighttime.? Patient has remained with appropriate behaviors and good impulse control; he is appropriate with peers and staff.? Mostly keeps himself not really attending groups. 11/19 Patient remains stable; patient has surpassed his former baseline.? Continues to be optimistic, no AVH no SI, delusional thinking able to be ignored.? Would like to discharge tomorrow.? Says will continue taking medications.? Patient has had numerous psychiatric hospitalizations, Often re-presented within days of discharge; he remains vulnerable for relapse with substance abuse and Mood any emotional decompensation; however these are chronic issues For patient of which is well aware.? Currently he is doing better than ad copy writer has ever seen him and staff who know him well concur.? Patient is hopeful and optimistic that he can remain stable and that current medication regimen will remain as helpful as he is currently experiencing. Patient is not in imminent risk for harm to self or others and his request for discharge honored. Time spent discussing smoking cessation with patient: 3 to 10 minutes Status at Discharge Functional status at discharge: independent ambulation Overall status at discharge: patient is back to baseline Time Spent with Patient Time attestation: Total time spent providing and/or coordinating discharge services: Time spent: Less than 30 minutes Discharge Plan Discharge Patient Disposition: Home, Self-Care Discharge Diagnosis: Schizoaffective, bipolar type, recurrent, severe most recent episode depressed in full remission Referrals: JAME BARRERA RN [Other] - 1 Week (fax- [phone] The RN will call to set a visit time to assist with medication ) Sanjuanita Bryan [Other] - 11/21/21 10:00 am (Follow-up discharge appointment with outpatient therapist at [facility] ) Satya Joe [Other] - 12/17/21 10:00 am (Follow-up discharge appointment with psychiatric medication prescriber. Appointment is by tele-health.) [place] [Primary Care Provider] - 1 Week Discharge Medications: New glycopyrrolate 1 mg Tablet See Rx Instructions .ROUTE .COMPLEX 30 Days Qty: 90 0RF Rx Instructions: take 1 tab daily and take 2 tabs at bedtime clozapine 100 mg Tablet See Rx Instructions .ROUTE .COMPLEX 30 Days Qty: 90 0RF Rx Instructions: Take 1 tab in the morning and take 2 tabs at bedtime Continued nicotine 21 mg/24 hr Patch 24 Hour 21 mg transdermal DAILY 28 Days Qty: 28 0RF divalproex 500 mg Tablet Extended Release 24 Hr 2,000 mg PO BEDTIME 30 Days Qty: 120 0RF trazodone 100 mg tablet 100 mg PO BEDTIME PRN (Reason: Insomnia) Qty: 30 0RF polyethylene glycol 3350 17 gram Powder In Packet 17 g PO BID PRN (Reason: constipation) Qty: 30 0RF sennosides-docusate sodium [Senna Plus] 8.6-50 mg Tablet 2 tab PO BID Qty: 120 0RF Discontinued clozapine 100 mg Tablet 100 mg PO BID@30,2029 Qty: 14 1RF atenolol 25 mg Tablet 25 mg PO DAILY Qty: 30 0RF Protocol: Hold for SBP/HR < HOLD for SBP < : 90 HOLD for HR < : 60 Discharge Orders: Discharge Order (Routine); Ordered 11/20/21 Ordered By: George Cat Diet: Regular diet Activity on Discharge: As tolerated Stand Alone Forms: Patient Portal Discharge page Care Plan Goals: Maintain mood and safe behaviors Take medications as prescribed Continue to pursue sobriety Practice coping skills Continue with outpatient providers and reach out to them as needed Health Concerns: Mood stability and behaviors Sobriety Plan of Treatment: Follow up with your Psychiatric provider and other outpatient providers regarding above concerns Take medications as prescribed Assessment: Risk assessment at time of discharge:? Patient was interviewed prior to discharge and found to be fully oriented and without any SI or HI. Patient has insight and demonstrates good judgment in terms of wanting to pursue treatment. Patient is not in imminent risk of harm to self or others and has a safety plan that includes presenting to the closest ER or calling 911 if feeling unsafe.? Patient has been observed closely by nursing and unit staff throughout admission; patient has not engaged in any behaviors that suggest dangerousness to self or others and has demonstrated appropriate behaviors and impulse control
[2021-11-20] MEDS: Naloxone HCl Nasal TAKE HOME 4 MG SPRAY NOSTRILALT (09:33)
[2021-11-20 09:58] LABS: Neut%MD 79.3 %; Neutrophils Absolute Auto 10.3 x10*3/uL (2.0-8.3)
[2021-11-22 08:03] LABS: Clozapine (Clozaril) 300 mcg/L; Norclozapine 101 mcg/L (25-400)
== END 2021-11-20 13:23 | disposition home or self-care (01) | DRG 750 ==
LOC: HO.ED 15:42 → HO.PM5 20:15
PROVIDERS: Social Worker; Admitting Provider Psychiatry & Neurology Psychiatry; Emergency Provider Emergency Medicine; Visit Provider Psychiatry & Neurology Psychiatry
DX: F25.0 Schizoaffective disorder, bipolar type (principal); F17.210 Nicotine dependence, cigarettes, uncomplicated; Z71.6 Tobacco abuse counseling; Z88.8 Allergy status to other drugs, medicaments and biological substances; Z79.899 Other long term (current) drug therapy
CPT/HCPCS: 36415; 80048; 80053; 80061; 80076; 80159; 80164; 80307; 85025; 85048; 87635; 99285; Q0163

== ENCOUNTER 2022-01-20 09:00 | Outpatient (REF) | payer MEDICAID, SELFPAY ==
[2022-01-20 09:59] LABS: Neut%MD 57.7 %; Neutrophils Absolute Auto 3.6 x10*3/uL (2.0-8.3); WBCANC 6.2 X10*3/uL
== END 2022-01-20 09:01 | disposition home or self-care (01) ==
LOC: HO.LAB 09:00
PROVIDERS: Visit Provider Psychiatry & Neurology Psychiatry
DX: Z79.899 Other long term (current) drug therapy (principal)
CPT/HCPCS: 36415; 85048

== ENCOUNTER 2022-02-07 13:11 | Emergency (ER) | payer MEDICAID, SELFPAY ==
--- NOTE | ~2022-02-07 | MR_ITS ---
EXAMINATION: MR angio head wo con, MR head/brain wo con CLINICAL INFORMATION: Left eye horizontal nystagmus, blurred vision COMPARISON: None TECHNIQUE: Multiplanar multisequence MR imaging of the brain was obtained without intravenous contrast. Noncontrast [id number] MRA of the brain was also performed. FINDINGS: There is no acute infarct on diffusion-weighted imaging. There is no intracranial hemorrhage on iron-sensitive imaging. No extra-axial collection or mass effect/herniation. There are several scattered foci of nonspecific supratentorial white matter T2/FLAIR signal abnormality. No hydrocephalus. The ventricles are normal in morphology and size. The major flow voids at the skull base are preserved. The midline structures are normal. The cerebellar tonsils are normally positioned. The craniocervical junction is normal. Marrow signal is within normal limits. The visualized soft tissues are without significant abnormality. Mild right maxillary sinus mucosal thickening. An intradural left vertebral artery is not identified. A robust left PICA is identified although the origin of this vessel is not included within the [id number]. Otherwise normal flow-related enhancement of the anterior and posterior intracranial arterial circulations. No evidence of arterial steno-occlusive disease or aneurysm. The vertebrobasilar system is diminutive related to near configuration of the posterior cerebral arteries with primary supply via the posterior communicating arteries. The right A1 segment is diminutive and the left A1 segment is dominant. MR/MR head/brain wo con IMPRESSION: 1. No acute intracranial abnormality. 2. There are a few scattered nonspecific supratentorial white matter T2/FLAIR hyperintensities. 3. 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 Otherwise unremarkable MRA of the brain.
--- NOTE | ~2022-02-07 | MR_ITS ---
EXAMINATION: MR angio head wo con, MR head/brain wo con CLINICAL INFORMATION: Left eye horizontal nystagmus, blurred vision COMPARISON: None TECHNIQUE: Multiplanar multisequence MR imaging of the brain was obtained without intravenous contrast. Noncontrast [id number] MRA of the brain was also performed. FINDINGS: There is no acute infarct on diffusion-weighted imaging. There is no intracranial hemorrhage on iron-sensitive imaging. No extra-axial collection or mass effect/herniation. There are several scattered foci of nonspecific supratentorial white matter T2/FLAIR signal abnormality. No hydrocephalus. The ventricles are normal in morphology and size. The major flow voids at the skull base are preserved. The midline structures are normal. The cerebellar tonsils are normally positioned. The craniocervical junction is normal. Marrow signal is within normal limits. The visualized soft tissues are without significant abnormality. Mild right maxillary sinus mucosal thickening. An intradural left vertebral artery is not identified. A robust left PICA is identified although the origin of this vessel is not included within the [id number]. Otherwise normal flow-related enhancement of the anterior and posterior intracranial arterial circulations. No evidence of arterial steno-occlusive disease or aneurysm. The vertebrobasilar system is diminutive related to near configuration of the posterior cerebral arteries with primary supply via the posterior communicating arteries. The right A1 segment is diminutive and the left A1 segment is dominant. MR/MR angio head wo con IMPRESSION: 1. No acute intracranial abnormality. 2. There are a few scattered nonspecific supratentorial white matter T2/FLAIR hyperintensities. 3. 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 Otherwise unremarkable MRA of the brain.
[2022-02-07 13:19] VITALS: BP 137/69; PULSE 103; RESP 20; TEMP 36.6; O2SAT 98; BMI 28.8
--- NOTE | 2022-02-07 13:45 | ED.EYEPROB ---
HPI - Eye Problem General Chief complaint: Eye Problems Stated complaint: vision issues Time Seen by Provider: 02/07/22 13:34 Source: patient Mode of arrival: ambulatory Limitations: no limitations History of Present Illness HPI Narrative: 26 yo male with history of schizoaffective disorder, bipolar type, hx acute psychosis non compliance with medications for the last 2 months who presents to the ER for evaluation of changes in vision in his left eye that he noticed yesterday. He states when he looks to the left he feels like his left eye gets stuck and does not track back forward. He also states that he has blurred vision when looking to the left and an associated headache. No eye pain, drainage, redness, injury or FB sensation. chief complaint: vision change Onset (ago): day(s) (1) Onset description: sudden Duration: intermittent Location: left eye Eye Symptoms: blurry vision Place: home Mechanism: none Severity: mild Associated symptoms: headache Treatments Prior to Arrival: none Related Data Previous Rx's Medication Instructions Recorded polyethylene glycol 3350 17 gram 17 g PO BID PRN constipation #30 ea 11/10/21 oral powder packet nicotine 21 mg/24 hr daily 21 mg transdermal DAILY 28 days 11/20/21 transdermal patch #28 ea clozapine 100 mg tablet See Rx Instructions .Route 11/21/21 .COMPLEX 30 days #90 tabs divalproex 500 mg tablet,extended 2,000 mg PO BEDTIME 30 days #120 11/21/21 release 24 hr (Depakote ER) tabs glycopyrrolate 1 mg tablet See Rx Instructions .Route 11/21/21 .COMPLEX 30 days #90 tabs sennosides 8.6 mg-docusate sodium 2 tab PO BID 30 days #120 tabs 11/21/21 50 mg tablet (Senna Plus) trazodone 100 mg tablet 100 mg PO BEDTIME PRN Insomnia 30 11/21/21 days #30 tabs Allergies Allergy/AdvReac Type Severity Reaction Status Date / Time haloperidol [From Haldol] AdvReac Intermediate EPS Verified 08/21/21 11:47 lorazepam AdvReac Unknown Verified 11/12/21 15:13 Review of Systems Review of Systems: Constitutional: No Fever, No Chills ENT/Mouth: No sore throat, No Rhinorrhea Eyes: No Eye Pain, No Swelling, No Redness, +vision changes Cardiovascular: No Chest Pain, No SOB Gastrointestinal: No Nausea, No Vomiting Musculoskeletal: No joint pain, No Myalgias Skin: No Skin Lesions, No rash Neuro: No Weakness, No Numbness, No Dizziness, +Headache Psych: +Anxiety/Panic, + Depression Heme/Lymph: No Bruising, No Lymphadenopathy PMFSH Past Medical History Medical History Alcohol abuse Bipolar 1 disorder Schizoaffective disorder, bipolar type Social History Social History Household Members: Family Housing: Apartment Do you presently have visiting nurse or other home services: No Alcohol intake: current Alcohol intake frequency: a few times a month Alcohol type: beer Patient Tobacco Use Status: Current everyday Tobacco user Tobacco use type: Cigarette Cigarette Packs Per Day: 1 Cigarettes Per Day: 20.0 Years Smoked: ''a long time'' e-Cigarette/Vaping Use: Never Used Second Hand Smoke Exposure: Yes Substance Use Type: Marijuana Advance Directives: No Advance Directives Information Provided: No service: No Sexual orientation: Straight/Heterosexual Physical Exam Vital Signs: Vital Signs: Last Vital Signs Temp 98 F 02/07/22 13:19 Pulse 103 H 02/07/22 13:19 Resp 20 02/07/22 13:19 BP 137/69 02/07/22 13:19 Pulse Ox 98 02/07/22 13:19 O2 Del Method 02/07/22 13:19 BMI result Body Mass Index 28.8 Appearance: Alert. Oriented X3. No acute distress. Eyes: Pupils equal, round and reactive to light. EOMI. +horizontal nystagmus in the left eye when looking to the left, intermittent. occurs when looking to the left with the right eye as well intermittently. ENT: Pharynx normal. Neck: Normal inspection. CVS: Normal heart rate and rhythm. Pulses normal. Respiratory: No respiratory distress. Speaking in complete sentences. Skin: Skin warm and dry. Normal skin color. Normal skin turgor. No rashes. Extremities: normal inspection x4 Neuro: Oriented X 3. nonfocal Course Course Course Narrative: 18-year-old male presents to the ER for evaluation vision changes in his left eye. He reports when he looks to the left with his left eye he feels like he has blurred vision, almost as if it is double vision but not quite. He has difficulty explaining exactly the sensation he is experiencing. On examination today his extraocular movements are intact. No evidence of a cranial nerve palsy. He does however have intermittent horizontal nystagmus, initially appreciated unilaterally on the left but it is occurring bilaterally sometimes as well. Neurologic exam is otherwise nonfocal and his vision is 20/20. Peripheral visual pierce are intact. Case discussed with Dr. Aleman who came to evaluate the patient at the bedside. Recommending CT scan of the head with contrast for further evaluation. Reevaluation(s) Reevaluation #1: Neuro radiologist Dr. Brooks recommending MRI/MRA of the brain rather than CTA to assess for aneurysm. MRI screening form complete. MRI/MRA ordered. Dispo pending results Reevaluation #2: MRI 1.? No acute intracranial abnormality. ? 2.? There are a few scattered nonspecific supratentorial white matter T2/FLAIR hyperintensities. ? 3.? 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 Otherwise unremarkable MRA of the brain. unclear etiology of nystagmus. comfortable with d/c home. plan to follow up with PCP and Optho. ? Medications Administered Discontinued Medications Generic Name Dose Route Start Last Admin Trade Name Josh PRN Reason Stop Dose Admin Fluorescein Sodium 1 strip 02/07/22 13:50 02/07/22 14:36 Fluorescein Sodium Strip EYE-LEFT 02/07/22 13:51 1 strip ONCE ONE Administration Tetracaine HCl 1 drop 02/07/22 13:50 02/07/22 14:36 Tetracaine Hcl/Pf 0.5% Oph Rimma 4 Ml Drops EYE-LEFT 02/07/22 13:51 1 drop ONCE ONE Administration Discharge Plan Discharge Clinical Impression: Horizontal nystagmus Patient Disposition: Home, Self-Care Instructions: Blurred Vision (ED) Additional Instructions: Your MRI today did not show any acute abnormalities that would cause your symptoms. Recommend Tylenol and Motrin as needed for headaches. If your symptoms persist, recommend following up with the eye doctor, name and number below. Call for an appointment. Prescriptions: No Action nicotine 21 mg/24 hr Patch 24 Hour 21 mg transdermal DAILY 28 Days Qty: 28 0RF glycopyrrolate 1 mg tablet See Rx Instructions .ROUTE .COMPLEX 30 Days Qty: 90 0RF Rx Instructions: Take 1 tab in the morning and take 2 tabs at bedtime clozapine 100 mg tablet See Rx Instructions .ROUTE .COMPLEX 30 Days Qty: 90 0RF Rx Instructions: Take 1 tab in the morning and take 2 tabs at bedtime divalproex [Depakote ER] 500 mg tablet extended release 24 hr 2,000 mg PO BEDTIME 30 Days Qty: 120 0RF sennosides-docusate sodium [Senna Plus] 8.6-50 mg Tablet 2 tab PO BID 30 Days Qty: 120 0RF Rx Instructions: HOLD for Loose stool trazodone 100 mg tablet 100 mg PO BEDTIME PRN (Reason: Insomnia) 30 Days Qty: 30 0RF polyethylene glycol 3350 17 gram Powder In Packet 17 g PO BID PRN (Reason: constipation) Qty: 30 0RF Referrals: Jean Claude Jackson [Physician] -
[2022-02-07] MEDS: Fluorescein Sodium STRIP 1 STRIP EYE-LEFT (14:36)
[2022-02-07] MEDS: Tetracaine HCl/PF 0.5% Oph Sol 4 ML DROPS 1 DROP EYE-LEFT (14:36)
[2022-02-07 14:54] LABS: MANUAL DIFF FLAG NO
[2022-02-07 14:55] LABS: Basophils Percent Auto 0.2 % (0-2); Eosinophils Absolute Auto 0.1 X10*3/uL (0.0-0.4); Eosinophils Percent Auto 0.8 % (0-4); Hematocrit 41.9 % (42.0-52.0); Imm Gran Abs Auto 0.03 X10*3/uL (0.00-0.03); Imm Gran Pct Auto 0.3 % (0.0-0.4); Lymphocytes Absolute Auto 1.8 X10*3/uL (1.2-4.9); Mean Corpuscular HGB Conc 35.8 g/dl (31.0-36.0); Mean Corpuscular Hemoglobin 33.3 pg (27.0-33.0); Mean Corpuscular Volume 93.1 fL (80.0-98.0); Mean Platelet Volume 9.2 fL (9.4-12.4); Monocytes Absolute Auto 0.8 X10*3/uL (0.1-1.2); Monocytes Percent Auto 8.7 % (2-11); Platelet Count 273 X10*3/uL (160-400); Red Cell Distribution Width 11.6 % (11.0-16.0); White Blood Count 8.6 X10*3/uL (4.8-10.8)
[2022-02-07 15:08] LABS: Anion Gap 14 (12-20); Blood Urea Nitrogen 8 mg/dL (9-16); Calcium 9.6 mg/dL (8.4-10.2); Carbon Dioxide 23 mmol/L (22-29); Chloride 105 mmol/L (96-108); Estimated Glomerular Filt Rate > 60; Glucose Random 94 mg/dL (60-115); Potassium 4.2 mmol/L (3.3-5.1); Sodium 138 mmol/L (135-145)
== END 2022-02-07 18:27 | disposition home or self-care (01) ==
PROVIDERS: Physician Assistant; Emergency Provider Emergency Medicine
DX: H55.09 Other forms of nystagmus (principal); H53.8 Other visual disturbances; R51.9 Headache, unspecified; F25.0 Schizoaffective disorder, bipolar type; F12.10 Cannabis abuse, uncomplicated; F17.200 Nicotine dependence, unspecified, uncomplicated; Z79.899 Other long term (current) drug therapy
CPT/HCPCS: 36415; 70544; 70551; 80048; 85025; 99282; 99285

== ENCOUNTER 2023-01-01 22:23 | Emergency (ER) | payer MEDICAID, SELFPAY ==
[2023-01-01 22:32] VITALS: BP 151/96; PULSE 108; O2SAT 98
[2023-01-01 22:47] VITALS: BP 141/93; PULSE 98; RESP 18; TEMP 36.7; O2SAT 96; BMI 28.9
[2023-01-01 23:07] VITALS: BP 141/93; PULSE 93; RESP 16; TEMP 36.7; O2SAT 95
[2023-01-01 23:13] LABS: MANUAL DIFF FLAG NO
[2023-01-01 23:14] LABS: Basophils Absolute Auto 0.1 X10*3/uL (0.0-0.2); Basophils Percent Auto 0.6 % (0-2); Eosinophils Absolute Auto 0.1 X10*3/uL (0.0-0.4); Hematocrit 41.9 % (42.0-52.0); Hemoglobin 15.3 g/dl (14.0-18.0); Imm Gran Abs Auto 0.05 X10*3/uL (0.00-0.03); Imm Gran Pct Auto 0.6 % (0.0-0.4); Lymphocytes Absolute Auto 2.5 X10*3/uL (1.2-4.9); Lymphocytes Percent Auto 28.2 % (20-40); Mean Corpuscular HGB Conc 36.5 g/dl (31.0-36.0); Mean Corpuscular Hemoglobin 34.6 pg (27.0-33.0); Mean Corpuscular Volume 94.8 fL (80.0-98.0); Mean Platelet Volume 9.1 fL (9.4-12.4); Monocytes Absolute Auto 1.3 X10*3/uL (0.1-1.2); Monocytes Percent Auto 14.4 % (2-11); Neutrophils Absolute Auto 4.9 x10*3/uL (2.0-8.3); Neutrophils Percent Auto 55.2 % (45-73); Platelet Count 237 X10*3/uL (160-400); Red Blood Count 4.42 X10*6/uL (4.60-5.80); Red Cell Distribution Width 11.1 % (11.0-16.0); White Blood Count 8.8 X10*3/uL (4.8-10.8)
[2023-01-01 23:29] LABS: Alanine Aminotransferase 70 U/L (0-40); Alkaline Phosphatase 75 U/L (39-117); Anion Gap 10 (12-20); Aspartate Amino Transferase 64 U/L (5-37); Bilirubin Direct 0.2 mg/dL (0.0-0.5); Bilirubin Total 0.8 mg/dL (0.0-1.0); Blood Urea Nitrogen 11 mg/dL (9-16); Calcium 8.5 mg/dL (8.4-10.2); Carbon Dioxide 24 mmol/L (22-29); Chloride 105 mmol/L (96-108); Creatinine Clr Calc Pharmacy 100.9; Estimated Glomerular Filt Rate > 60; Glucose Random 85 mg/dL (60-115); Potassium 3.7 mmol/L (3.3-5.1); Sodium 135 mmol/L (135-145); Total Protein 7.2 g/dL (6.5-8.0)
[2023-01-01 23:39] LABS: Appearance Urine Clear; Color Urine Yellow; Glucose Urine UA Negative (Negative); Leukocyte Esterase Urine Negative (Negative); Nitrite Urine Negative (Negative); PH 6.5 (5.0-9.0); Specific Gravity - Urine 1.015 (1.005-1.025); Urine Blood Negative (Negative); Urine Ketones Trace mg/dL (Negative); Urine Protein Negative (Neg-Trace)
[2023-01-01 23:44] LABS: Bacteria Urine None Seen (None Seen); Hyaline Casts Urine 0-2 /LPF (0-2); RBC Urine 0-2 /HPF (0-2); Squamous Epithelial Cell Urine 0-2 /HPF (0-2); WBC Urine 0-5 /HPF (0-5)
--- NOTE | 2023-01-01 23:46 | ED_ITS ---
HPI - General Adult General Chief complaint: General Medical Stated complaint: CP, Weakness Time Seen by Provider: 01/01/23 23:39 Source: patient Mode of arrival: ambulatory Limitations: no limitations History of Present Illness HPI narrative: Patient's history of schizoaffective disorder anxiety complaining of nonspecific numbness tingling sensation left side of the face and left side of the chest for last 24 hours also complaining of right testicular pain for years with workup negative in the past no weakness or deficit Related Data Previous Rx's Medication Instructions Recorded polyethylene glycol 3350 17 gram 17 g PO BID PRN constipation #30 ea 11/10/21 oral powder packet nicotine 21 mg/24 hr daily 21 mg transdermal DAILY 28 days 11/20/21 transdermal patch #28 ea clozapine 100 mg tablet See Rx Instructions .Route 11/21/21 .COMPLEX 30 days #90 tabs divalproex 500 mg tablet,extended 2,000 mg (4 x 500 mg) PO BEDTIME 11/21/21 release 24 hr (Depakote ER) 30 days #120 tabs glycopyrrolate 1 mg tablet See Rx Instructions .Route 11/21/21 .COMPLEX 30 days #90 tabs sennosides 8.6 mg-docusate sodium 2 tab PO BID 30 days #120 tabs 11/21/21 50 mg tablet (Senna Plus) trazodone 100 mg tablet 100 mg PO BEDTIME PRN Insomnia 30 11/21/21 days #30 tabs Allergies Allergy/AdvReac Type Severity Reaction Status Date / Time haloperidol [From Haldol] AdvReac Intermediate EPS Verified 08/21/21 11:47 lorazepam AdvReac Unknown Verified 11/12/21 15:13 Review of Systems 2 Review of Systems: Yes all other systems are reviewed and are negative [facility] Past Medical History Medical History Schizoaffective disorder, bipolar type Bipolar 1 disorder Alcohol abuse Social History Social History Household Members: Family Housing: Apartment Do you presently have visiting nurse or other home services: No Alcohol intake: current Alcohol intake frequency: 3 or more drinks per day Alcohol type: hard liquor Patient Tobacco Use Status: Current everyday Tobacco user Tobacco use type: Cigarette Cigarette Packs Per Day: 1 Cigarettes Per Day: 20.0 Years Smoked: ''a long time'' Smoked in Last 30 Days: Yes e-Cigarette/Vaping Use: Never Used Second Hand Smoke Exposure: Yes Use of substances other than those prescribed or required for medical reasons: No Substance Use Type: Marijuana Advance Directives: No Advance Directives Information Provided: Yes service: No Sexual orientation: Straight/Heterosexual Physical Exam ED Vital Signs: Vital Signs - 24 hr 01/01/23 22:47 01/01/23 23:07 01/02/23 00:29 Temperature 98.0 F 98.0 F 98.0 F Pulse Rate 98 93 90 Respiratory Rate 18 16 14 Blood Pressure 141/93 H 141/93 H 147/98 H Pulse Oximetry 96 95 98 Oxygen Delivery Method Room Air Room Air Room Air BMI result Body Mass Index 28.9 Appearance: Alert. Oriented X3. No acute distress. Eyes: PERRLA, No Nystagmus ENT: Pharynx normal. Oral Mucosa moist Neck: Normal inspection. Neck supple. CVS: Normal heart rate and rhythm. Pulses normal. Respiratory: No respiratory distress. Equal air entry bilateral, no wheezing/rales/rhonchi Abdomen: Soft and nontender. Bowel sounds are present, no mass palpable, no CVA tenderness Skin: Skin warm and dry. Normal skin color. Normal skin turgor. Extremities: No lower extremity edema. No calf tenderness Neuro: Oriented X 3. No motor deficit. No sensory deficit.No cerebellar signs , cranial nerves II-XII intact Medical Decision Making Medical Decision Making [facility] Narrative: No objective numbness to the left side no motor weakness the patient pinprick temperature sensation were normal no focal deficits speech normal discharge patient home for paresthesia nonspecific Differential Diagnosis Differential Diagnoses: The differential diagnosis associated with the presentation includes Paresthesia/anxiety Lab Data [facility] Lab Attestation statement: I reviewed the patient's lab results. 01/01/23 23:06 01/01/23 23:06 Labs: Lab Results 01/01/23 01/01/23 Range/Units 23:06 23:31 WBC 8.8 (4.8-10.8) X10*3/uL RBC 4.42 L (4.60-5.80) X10*6/uL Hgb 15.3 (14.0-18.0) g/dl Hct 41.9 L (42.0-52.0) % MCV 94.8 (80.0-98.0) fL MCH 34.6 H (27.0-33.0) pg MCHC 36.5 H (31.0-36.0) g/dl RDW 11.1 (11.0-16.0) % Plt Count 237 (160-400) X10*3/uL MPV 9.1 L (9.4-12.4) fL Immature Gran % (Auto) 0.6 H (0.0-0.4) % Neut % (Auto) 55.2 (45-73) % Lymph % (Auto) 28.2 (20-40) % [place] % (Auto) 14.4 H (2-11) % Eos % (Auto) 1.0 (0-4) % Baso % (Auto) 0.6 (0-2) % Lymph # (Auto) 2.5 (1.2-4.9) X10*3/uL [place] # (Auto) 1.3 H (0.1-1.2) X10*3/uL Eos # (Auto) 0.1 (0.0-0.4) X10*3/uL Baso # (Auto) 0.1 (0.0-0.2) X10*3/uL Abs Immat Gran (auto) 0.05 H (0.00-0.03) X10*3/uL Absolute Neuts (auto) 4.9 (2.0-8.3) x10*3/uL Absolute Nucleated RBC 0.000 (0.0-0.012) X10*3/uL Nucleated RBC % (auto) 0.0 (0.0-0.2) /100WBC Sodium 135 (135-145) mmol/L Potassium 3.7 (3.3-5.1) mmol/L Chloride 105 (96-108) mmol/L Carbon Dioxide 24 (22-29) mmol/L Anion Gap 10 L (12-20) BUN 11 (9-16) mg/dL Creatinine 1.08 (0.5-1.4) mg/dL Estim Creat Clear Calc 100.9 Estimated GFR > 60 Random Glucose 85 (60-115) mg/dL Calcium 8.5 D (8.4-10.2) mg/dL Total Bilirubin 0.8 (0.0-1.0) mg/dL Direct Bilirubin 0.2 (0.0-0.5) mg/dL AST 64 H (5-37) U/L ALT 70 H (0-40) U/L Alkaline Phosphatase 75 (39-117) U/L Total Protein 7.2 (6.5-8.0) g/dL Albumin 4.0 (3.5-5.0) g/dL Urine Color Yellow Urine Appearance Clear Urine pH 6.5 (5.0-9.0) Ur Specific [place] 1.015 (1.005-1.025) Urine Protein Negative (Neg-Trace) mg/dL Urine Glucose (UA) Negative (Negative) mg/dL Urine Ketones Trace (Negative) mg/dL Urine Blood Negative (Negative) Urine Nitrite Negative (Negative) Ur Leukocyte Esterase Negative (Negative) Urine RBC 0-2 (0-2) /HPF Urine WBC 0-5 (0-5) /HPF Ur Squamous Epith Cells 0-2 (0-2) /HPF Urine Bacteria None Seen (None Seen) Hyaline Casts 0-2 (0-2) /LPF Discharge Plan Discharge Clinical Impression: Paresthesia Patient Disposition: Home, Self-Care Instructions: Paresthesia (ED) Additional Instructions: Continue your medications And follow with PCP if any concerns Prescriptions: No Action nicotine 21 mg/24 hr Patch 24 Hour 21 mg transdermal DAILY 28 Days Qty: 28 0RF glycopyrrolate 1 mg tablet See Rx Instructions .ROUTE .COMPLEX 30 Days Qty: 90 0RF Rx Instructions: Take 1 tab in the morning and take 2 tabs at bedtime clozapine 100 mg tablet See Rx Instructions .ROUTE .COMPLEX 30 Days Qty: 90 0RF Rx Instructions: Take 1 tab in the morning and take 2 tabs at bedtime divalproex [Depakote ER] 500 mg tablet extended release 24 hr 2,000 mg PO BEDTIME 30 Days Qty: 120 0RF sennosides-docusate sodium [Senna Plus] 8.6-50 mg Tablet 2 tab PO BID 30 Days Qty: 120 0RF Rx Instructions: HOLD for Loose stool trazodone 100 mg tablet 100 mg PO BEDTIME PRN (Reason: Insomnia) 30 Days Qty: 30 0RF polyethylene glycol 3350 17 gram Powder In Packet 17 g PO BID PRN (Reason: constipation) Qty: 30 0RF Interventions: ED Discharge Assessment Last Done: 01/02/23 00:43 Discharge Date/Time: 01/02/23 00:43
[2023-01-02 00:29] VITALS: BP 147/98; PULSE 90; RESP 14; TEMP 36.7; O2SAT 98
== END 2023-01-02 00:43 | disposition home or self-care (01) ==
PROVIDERS: Emergency Provider Internal Medicine
DX: R20.2 Paresthesia of skin (principal); F41.9 Anxiety disorder, unspecified; F12.10 Cannabis abuse, uncomplicated; F25.0 Schizoaffective disorder, bipolar type; F23 Brief psychotic disorder; F10.10 Alcohol abuse, uncomplicated; Y90.9 Presence of alcohol in blood, level not specified; F17.210 Nicotine dependence, cigarettes, uncomplicated; Z79.899 Other long term (current) drug therapy
CPT/HCPCS: 36415; 80053; 81001; 82248; 85025; 99283; 99284

== ENCOUNTER 2023-07-01 13:03 | Inpatient (IN) | payer MEDICAID, OTHER, SELFPAY ==
--- NOTE | 2023-07-01 13:16 | ED.PSYCH ---
HPI - Psych General Chief Complaint: Psychiatric Symptoms Stated Complaint: SEC 12,NON MED COMP,UNCOOP,NON VIOL PER EMS Time Seen by Provider: 07/01/23 13:05 Source: patient and EMS Mode of arrival: EMS Limitations: altered mental status History of Present Illness HPI Narrative: patient comes to the emergency room via ambulance from home. Patient's family called. Patient's seems to be paranoid, hearing voices, talking to himself. Patient is very agitated, not violent, known to be non medication compliant. Patient uncooperative, section 12 was started on the community. Patient not answering questions Related Data Previous Rx's ?Medication ?Instructions ?Recorded polyethylene glycol 3350 17 gram 17 g PO BID PRN constipation #30 ea 11/10/21 oral powder packet nicotine 21 mg/24 hr daily 21 mg transdermal DAILY 28 days 11/20/21 transdermal patch #28 ea clozapine 100 mg tablet See Rx Instructions .Route 11/21/21 .COMPLEX 30 days #90 tabs divalproex 500 mg tablet,extended 2,000 mg (4 x 500 mg) PO BEDTIME 11/21/21 release 24 hr (Depakote ER) 30 days #120 tabs glycopyrrolate 1 mg tablet See Rx Instructions .Route 11/21/21 .COMPLEX 30 days #90 tabs sennosides 8.6 mg-docusate sodium 2 tab PO BID 30 days #120 tabs 11/21/21 50 mg tablet (Senna Plus) trazodone 100 mg tablet 100 mg PO BEDTIME PRN Insomnia 30 11/21/21 days #30 tabs Allergies Allergy/AdvReac Type Severity Reaction Status Date / Time No Known Allergies Allergy Verified 07/01/23 20:57 Review of Systems Review of Systems: Yes Unobtainable due to mental condition [facility] Past Medical History Medical History Schizoaffective disorder, bipolar type Bipolar 1 disorder Alcohol abuse Social History Social History Household Members: Family Housing: Apartment Do you presently have visiting nurse or other home services: No Unable to assess alcohol history related to: Unable to respond Alcohol intake: current Alcohol intake frequency: 3 or more drinks per day Alcohol type: hard liquor Comment: Dr. Campbell Patient Tobacco Use Status: Current everyday Tobacco user Tobacco use type: Cigarette Cigarette Packs Per Day: 1 Cigarettes Per Day: 20.0 Years Smoked: ''a long time'' e-Cigarette/Vaping Use: Never Used Second Hand Smoke Exposure: Yes Use of substances other than those prescribed or required for medical reasons: Unable to respond Substance Use Type: Marijuana Advance Directives: No Advance Directives Information Provided: No Do you have a plan to hurt others: No Plan service: No Sexual orientation: Straight/Heterosexual Physical Exam Vital Signs: Vital Signs: Last Vital Signs Temp 97.7 F 07/01/23 14:40 Pulse 117 H 07/01/23 14:40 Resp 16 07/01/23 14:40 BP 152/90 H 07/01/23 14:40 Pulse Ox 99 07/01/23 14:40 O2 Del Method Room Air 07/01/23 14:40 BMI result Body Mass Index 28.3 Const: Other: Appearance: Alert. seems anxious, talking to himself Eyes: Pupils equal, round and reactive to light. ENT: Pharynx normal. Neck: Normal inspection. Neck supple. No lymph nodes noted. No crepitus CVS: Normal heart rate and rhythm. Pulses normal. Normal S1 and S2 Respiratory: No respiratory distress. Breath sounds normal. No Wheezing. No rales Abdomen: Soft and nontender. No rigidity. No distention. Skin: Skin warm and dry. Normal skin color. Normal skin turgor. Extremities: No lower extremity edema. No Lacerations. No Rash Neuro: Oriented X 3. No motor deficit. No sensory deficit. Moving all extremities. No slurred speech. CN 2 through 12 grossly intact Psych: anxious, talking to himself, agitated, uncooperative but not aggressive Course Course Course Narrative: - all of patient's labs pending - patient is on a Section 12 started out in the community - care team consult pending - physician observation started at 13:18 Medications Administered Generic Name Dose Route Start Last Admin Trade Name Freq PRN Reason Stop Dose Admin Nicotine Polacrilex 2 mg 07/01/23 19:15 07/01/23 20:03 Nicotine Polacrilex 2 Mg Gum BUCCAL 2 mg QID PRN Administration Nicotine Cravings Discontinued Medications Generic Name Dose Route Start Last Admin Trade Name Freq PRN Reason Stop Dose Admin Diphenhydramine HCl 50 mg 07/01/23 13:36 07/01/23 13:45 Diphenhydramine Hcl 50 Mg/Ml Vial IM 07/01/23 13:37 50 mg ONCE ONE Administration Diphenhydramine HCl 50 mg 07/01/23 17:13 07/01/23 17:16 Diphenhydramine Hcl 25 Mg Capsule PO 07/01/23 17:14 50 mg ONCE ONE Administration Diphenhydramine HCl 50 mg 07/01/23 19:38 07/01/23 20:02 Diphenhydramine Hcl 50 Mg/Ml Vial IM 07/01/23 19:39 50 mg ONCE ONE Administration Olanzapine 10 mg 07/01/23 17:12 07/01/23 17:16 Olanzapine 10 Mg Tablet PO 07/01/23 17:13 10 mg ONCE ONE Administration Olanzapine 10 mg 07/01/23 19:38 07/01/23 20:02 Olanzapine 10 Mg Vial IM 07/01/23 19:39 10 mg STAT STA Administration Ondansetron HCl 4 mg 07/01/23 18:56 07/01/23 18:58 Ondansetron Odt 4 Mg Tab.Rapdis TRANSLINGU 07/01/23 18:57 4 mg ONCE ONE Administration Ziprasidone 20 mg 07/01/23 13:36 07/01/23 13:44 Ziprasidone Mesylate 20 Mg Vial IM 07/01/23 13:37 20 mg ONCE ONE Administration Medical Decision Making Medical Decision Making [facility] Narrative: patient seems decompensated, known to be noncompliant with medications, patient will likely need inpatient level of care Patient has been off of his medications for over 6 months. Patient was given a reduced dose of divalproex, this time 1000 mg p.o. for bedtime, also given Ativan p.o. and trazodone 100 mg -care team called the patient's mother, to her knowledge he has no allergies including Ativan -patient getting his night medications at this time 21:00, sign-out given to my colleague Dr. Arias Differential Diagnosis Differential Diagnoses: The differential diagnosis associated with the presentation includes ( polysubstance abuse, manic, schizoaffective disorder) Admission/Observation Consideration of admission/observation: Escalation of care including admission/observation considered ( patient on a Section 12, patient will likely need inpatient level of care) Lab Data [facility] Lab Attestation statement: I reviewed the patient's lab results. 07/01/23 14:59 07/01/23 14:59 Labs: Lab Results 07/01/23 Range/Units 14:59 WBC 14.5 H (4.8-10.8) X10*3/uL RBC 4.03 L (4.60-5.80) X10*6/uL Hgb 13.5 L (14.0-18.0) g/dl Hct 37.4 L (42.0-52.0) % MCV 92.8 (80.0-98.0) fL MCH 34.6 H (27.0-33.0) pg MCHC 37.0 H (31.0-36.0) g/dl RDW 11.2 (11.0-16.0) % Plt Count 249 (160-400) X10*3/uL MPV 9.8 (9.4-12.4) fL Immature Gran % (Auto) 0.6 H (0.0-0.4) % Neut % (Auto) 79.9 H (45-73) % Lymph % (Auto) 9.5 L (20-40) % [place] % (Auto) 9.6 (2-11) % Eos % (Auto) 0.1 (0-4) % Baso % (Auto) 0.3 (0-2) % Lymph # (Auto) 1.4 (1.2-4.9) X10*3/uL [place] # (Auto) 1.4 H (0.1-1.2) X10*3/uL Eos # (Auto) 0.0 (0.0-0.4) X10*3/uL Baso # (Auto) 0.0 (0.0-0.2) X10*3/uL Abs Immat Gran (auto) 0.09 H (0.00-0.03) X10*3/uL Absolute Neuts (auto) 11.6 H (2.0-8.3) x10*3/uL Absolute Nucleated RBC 0.000 (0.0-0.012) X10*3/uL Nucleated RBC % (auto) 0.0 (0.0-0.2) /100WBC Smear Tech's Comments VERIFIED Sodium 137 (135-145) mmol/L Potassium 3.0 L (3.3-5.1) mmol/L Chloride 101 (96-108) mmol/L Carbon Dioxide 22 (22-29) mmol/L Anion Gap 17 (12-20) BUN 11 (9-16) mg/dL Creatinine 0.82 (0.5-1.4) mg/dL Estim Creat Clear Calc 109.1 Estimated GFR > 60 Random Glucose 86 (60-115) mg/dL Calcium 9.2 D (8.4-10.2) mg/dL Total Bilirubin 1.7 H (0.0-1.0) mg/dL Direct Bilirubin 0.6 H (0.0-0.5) mg/dL AST 147 H (5-37) U/L ALT 72 H (0-40) U/L Alkaline Phosphatase 82 (39-117) U/L Total Protein 7.4 (6.5-8.0) g/dL Albumin 4.1 (3.5-5.0) g/dL Ethyl Alcohol < 10 mg/dL Critical Care Time Critical Care Time Critical Care Time: Yes Total Critical Care Time: 45 Attestation: I have personally provided critical care time. Time includes review of lab data, radiology results, discussion with consultants, and monitoring for potential decompensation. Intervention performed as documented. Discharge Plan Discharge Clinical Impression: Schizoaffective disorder, bipolar type Patient Disposition: Still a Patient Prescriptions: No Action nicotine 21 mg/24 hr Patch 24 Hour 21 mg transdermal DAILY 28 Days Qty: 28 0RF glycopyrrolate 1 mg tablet See Rx Instructions .ROUTE .COMPLEX 30 Days Qty: 90 0RF Rx Instructions: Take 1 tab in the morning and take 2 tabs at bedtime clozapine 100 mg tablet See Rx Instructions .ROUTE .COMPLEX 30 Days Qty: 90 0RF Rx Instructions: Take 1 tab in the morning and take 2 tabs at bedtime divalproex [Depakote ER] 500 mg tablet extended release 24 hr 2,000 mg PO BEDTIME 30 Days Qty: 120 0RF sennosides-docusate sodium [Senna Plus] 8.6-50 mg Tablet 2 tab PO BID 30 Days Qty: 120 0RF Rx Instructions: HOLD for Loose stool trazodone 100 mg tablet 100 mg PO BEDTIME PRN (Reason: Insomnia) 30 Days Qty: 30 0RF polyethylene glycol 3350 17 gram Powder In Packet 17 g PO BID PRN (Reason: constipation) Qty: 30 0RF Interventions: [place]-Suicide Risk Severity Scale Last Done: 07/01/23 18:33 Print Language: Romansh
--- NOTE | 2023-07-01 13:27 | MHC.CARE ---
Pt was seen by [facility] co-response and found IPLOC
--- NOTE | 2023-07-01 13:35 | MHC.EDTECH ---
pt came to pod not changed over. nurse from the main ed milly gomez handed pod nurse do 2 vapes and phone, which were put behind the nurses station while the rest of the place change roof bolter was done. security [place] told me everything in belongings included 3 vapes clothes and phone. what was secured in the locker was only the 2 vapes, phone and clothes. rn is aware.
[2023-07-01 13:40] VITALS: BP 164/100; PULSE 111; RESP 16; O2SAT 98; BMI 28.3
[2023-07-01] MEDS: Ziprasidone Mesylate 20 MG VIAL IM (13:44)
[2023-07-01] MEDS: diphenhydrAMINE HCL 50 MG/ML VIAL IM ×2 (13:45→20:02)
[2023-07-01 14:40] VITALS: BP 152/90; PULSE 117; RESP 16; TEMP 36.5; O2SAT 99
[2023-07-01 15:24] LABS: Alanine Aminotransferase 72 U/L (0-40); Albumin Level 4.1 g/dL (3.5-5.0); Alkaline Phosphatase 82 U/L (39-117); Anion Gap 17 (12-20); Aspartate Amino Transferase 147 U/L (5-37); Bilirubin Direct 0.6 mg/dL (0.0-0.5); Bilirubin Total 1.7 mg/dL (0.0-1.0); Blood Urea Nitrogen 11 mg/dL (9-16); Calcium 9.2 mg/dL (8.4-10.2); Carbon Dioxide 22 mmol/L (22-29); Chloride 101 mmol/L (96-108); Creatinine Clr Calc Pharmacy 109.1; Estimated Glomerular Filt Rate > 60; Ethanol < 10 mg/dL; Glucose Random 86 mg/dL (60-115); Sodium 137 mmol/L (135-145); Total Protein 7.4 g/dL (6.5-8.0)
[2023-07-01 15:44] LABS: Basophils Percent Auto 0.3 % (0-2); Eosinophils Percent Auto 0.1 % (0-4); Hematocrit 37.4 % (42.0-52.0); Imm Gran Abs Auto 0.09 X10*3/uL (0.00-0.03); Imm Gran Pct Auto 0.6 % (0.0-0.4); Lymphocytes Absolute Auto 1.4 X10*3/uL (1.2-4.9); Lymphocytes Percent Auto 9.5 % (20-40); MANUAL DIFF FLAG SCAN; Mean Corpuscular Volume 92.8 fL (80.0-98.0); Mean Platelet Volume 9.8 fL (9.4-12.4); Monocytes Absolute Auto 1.4 X10*3/uL (0.1-1.2); Monocytes Percent Auto 9.6 % (2-11); Neutrophils Absolute Auto 11.6 x10*3/uL (2.0-8.3); Neutrophils Percent Auto 79.9 % (45-73); Platelet Count 249 X10*3/uL (160-400); Red Blood Count 4.03 X10*6/uL (4.60-5.80); Red Cell Distribution Width 11.2 % (11.0-16.0); SCAN SMEAR FLAG 1; White Blood Count 14.5 X10*3/uL (4.8-10.8)
[2023-07-01 16:12] LABS: Mean Corpuscular Hemoglobin 34.6 pg (27.0-33.0)
[2023-07-01 16:14] LABS: Hemoglobin 13.5 g/dl (14.0-18.0)
[2023-07-01 16:16] LABS: SLIDE REVIEW VERIFIED
[2023-07-01] MEDS: OLANZapine 10 MG TABLET PO ×2 (17:16→23:13)
[2023-07-01] MEDS: diphenhydrAMINE HCL 25 MG CAPSULE 50 MG PO (17:16)
--- NOTE | 2023-07-01 17:25 | PC.NURSE ---
this RN resumed care of pt at 1500. pt resting comfortably in no apparent distress until waking up. when assessing pt - pt woke up agitated/combative. pt huffing and pacing throughout pod in an angrily manner. pt hallucinating shouting at other patients in the pod. pt raised fist at other patient and yelled fight me! security called/bedside in attempts to deescalate the situation. Dr. Jorgensen/discharge coordinator bedside as well. after multiple attempts - pt medicated w/ PO medication willingly. pt now in room - pacing back and forth with door closed. plan of care ongoing.
--- NOTE | 2023-07-01 17:41 | PC.NURSE ---
pt becoming increasingly agitated/combative. pt came out of room and attempted to fight with another patient (different from the first). security called/bedside. pt now made a 1:1 for safety precautions. plan of care ongoing.
[2023-07-01] MEDS: Ondansetron ODT 4 MG TAB.RAPDIS TRANSLINGU (18:58)
--- NOTE | 2023-07-01 18:58 | PC.NURSE ---
pt actively vomited onto pod bathroom floor - zofran administered. effectiveness pending.
[2023-07-01] MEDS: OLANZapine 10 MG VIAL IM (20:02)
[2023-07-01] MEDS: Nicotine Polacrilex 2 MG GUM BUCCAL (20:03)
--- NOTE | 2023-07-01 20:12 | PC.NURSE ---
for the last hour client has been nonstop motion highly agitated seemingly responding to invisable objects, seemingly spotting imaginary persons and bolting after them or yelling into peers rooms gave IM medications 1950 awaiting effect.
[2023-07-01] MEDS: Divalproex Sodium 500 MG TABLET.DR 1000 MG PO (21:25)
[2023-07-01] MEDS: LORazepam 1 MG TABLET 2 MG PO ×2 (21:26→23:12)
[2023-07-01] MEDS: traZODone HCL 100 MG TABLET PO (21:26)
[2023-07-01 23:00] LABS: Amphetamine Screen Urine Not Detected (Not Detect); Barbiturates, Urine Not Detected (Not Detect); Benzodiazepines Screen Urine Not Detected (Not Detect); Buprenorphine Scr Not Detected (Not Detect); Cannabinoid Screen Urine POSITIVE (Not Detect); Cocaine Screen Urine Not Detected (Not Detect); Fentanyl, urine Not Detected (Not Detect); Methadone Screen, Urine Not Detected (Not Detect); Opiate Screen Urine Not Detected (Not Detect); Oxycodone Screen Urine Not Detected (Not Detect); Phencyclidine Screen Urine Not Detected (Not Detect)
--- NOTE | 2023-07-02 | ECG_ITS ---
Test Reason : MEDICAL CLEARANCE Blood Pressure : / mmHG Vent. Rate : 094 BPM Atrial Rate : 094 BPM P-R Int : 134 ms QRS Dur : 078 ms QT Int : 332 ms P-R-T Axes : 047 103 042 degrees QTc Int : 415 ms Normal sinus rhythm Rightward axis Borderline ECG When compared with ECG of 01-NOV-2021 18:11, No significant change was found Referred By: Vera Johnson Electronically Signed By:RENÉ CORRAL
--- NOTE | 2023-07-02 04:34 | PC.NURSE ---
patient periodically awakens every now and again and seems entirely confused to his wehreabouts, time, etc, barely can bear his own weight and seated begins falling asleep but struggles to remain awake and will periodically say i gotta leave very difficult to redirect and settle into bed in a safe manner.
--- NOTE | 2023-07-02 04:36 | PC.NURSE ---
patient from was maintained on 1:1 obs status with t/w
--- NOTE | 2023-07-02 04:58 | PC.NURSE ---
patient for the most part asleep
[2023-07-02 06:12] VITALS: PULSE 89; RESP 16; TEMP 36.8; O2SAT 98
--- NOTE | 2023-07-02 07:13 | PC.NURSE ---
Assumed care of patient. Patient is observed pacing the unit. No signs of distress, breathing is even and unlabored. Will continue plan of care.
--- NOTE | 2023-07-02 07:58 | MHC.EDTECH ---
Patient refused EKG, stating I'm not doing that . Patient in room. Respirations even and unlabored.
--- NOTE | 2023-07-02 07:59 | PC.NURSE ---
Behavioral Observation Patient is observed to ambulate with an unsteady gait. Patient is observed to be challenging to staff. Patient is on 1:1 observation for safety but is also observed being verbally challenging with sitter. Will continue plan of care.
--- NOTE | 2023-07-02 07:59 | MHC.EDTECH ---
Asked patient if he could give a urine sample. Gave patient urine cup to try to give sample, patient agreed to try. Patient unable to give sample.
[2023-07-02] MEDS: Nicotine Polacrilex 2 MG GUM BUCCAL ×3 (08:18→20:55)
--- NOTE | 2023-07-02 08:23 | PC.NURSE ---
Behavioral Observation Patient was observed with increasing behaviors that are destructive to self, others and milieu. Patient was disrobing in his room and then attempting to leave. When informed he needed to be dressed to leave the room he began posturing and threatening staff. Security was called for a show of support. The patient then became compliant and laid down quietly in bed for approx 5 to 10 minutes before getting up and continuing to pace the unit. Will continue plan of care.
[2023-07-02] MEDS: LORazepam 1 MG TABLET 2 MG PO ×2 (09:56→14:39)
[2023-07-02 19:35] LABS: Appearance Urine Clear; Color Urine Yellow; Glucose Urine UA Negative (Negative); Leukocyte Esterase Urine Negative (Negative); Nitrite Urine Negative (Negative); PH 6.5 (5.0-9.0); Urine Blood Negative (Negative); Urine Ketones Trace mg/dL (Negative); Urine Protein Negative (Neg-Trace)
[2023-07-02 22:44] VITALS: PULSE 89; RESP 17; O2SAT 94
[2023-07-03 00:29] VITALS: BP 137/90; PULSE 79; RESP 17; TEMP 36.4; O2SAT 100
[2023-07-03] MEDS: LORazepam 2 MG/ML VIAL IM (00:35)
[2023-07-03] MEDS: OLANZapine 10 MG VIAL IM (00:35)
--- NOTE | 2023-07-03 05:53 | PC.NURSE ---
Patient has trouble falling sleep and staying sleep due to his paranoia secondary to decompensation triggered by non meds compliant, whole evening patient was observed wandering approaching staff member with his multiple needs, patient requested stronger medication that could help him sleep, when asked is he referring to IM medication he said yes, provider notified/ordered Ativan 2 mg IM and Olanzapine 10 mg IM per patient's request, administered as ordered at 0035 with little effect, slept two hours only S/P IM medication, patient was assessed by [facility] at home, disposition is section 12 inpatient bed search, med rec completed/patient has been off his medication for years, psych consult ordered to review his medication, patient's thought content is disorganized, behavior intrusive requiring continuos redirection, will continue to monitor
--- NOTE | 2023-07-03 06:58 | PC.NURSE ---
Assumed care of patient at 0645, patient up ambulating around pod with steady gait, patient threw water at [facility]HT, then became visibly agitated. Stewart RN and this RN verbally calmed patient down. Patient is now pacing up and down pod. Continue plan of care for S12, inpatient bedsearch
[2023-07-03] MEDS: Nicotine Polacrilex 2 MG GUM BUCCAL ×3 (07:20→19:34)
--- NOTE | 2023-07-03 08:53 | PC.NURSE ---
patient refusing lab draw at this time
[2023-07-03 08:54] VITALS: RESP 16
[2023-07-03 09:37] LABS: Anion Gap 15 (12-20); Blood Urea Nitrogen 10 mg/dL (9-16); Carbon Dioxide 28 mmol/L (22-29); Chloride 100 mmol/L (96-108); Creatinine Clr Calc Pharmacy 117.7; Estimated Glomerular Filt Rate > 60; Glucose Random 92 mg/dL (60-115); Potassium 3.5 mmol/L (3.3-5.1); Sodium 139 mmol/L (135-145)
--- NOTE | 2023-07-03 14:30 | PC.NURSE ---
Addendum entered by Kirsten Negrete 07/03/23 14:33: Correction: - Ativan 2mg every 4 hours as needed Original Note: Dr. Felder at bedside talking with patient. Verbal order for the following medications: - Ativan 2mg PRN every 6 hours - Depakote 2000mg daily at bedtime - Clozaril 50mg daily at bedtime
[2023-07-03] MEDS: LORazepam 1 MG TABLET 2 MG PO ×2 (14:38→19:31)
[2023-07-03 15:05] VITALS: PULSE 74; RESP 16; O2SAT 99
--- NOTE | 2023-07-03 15:35 | PM.PSYCN ---
History of Present Illness Date of Service: 07/03/23 Chief Complaint: SEC 12,NON MED COMP,UNCOOP,NON VIOL PER EMS Reason for Consult: REMS ID [id number] Sources of Information: patient interviewed and chart reviewed HPI Narrative: as per ED note 07/01/23: patient comes to the emergency room via ambulance from home. Patient's family called. Patient's seems to be paranoid, hearing voices, talking to himself. Patient is very agitated, not violent, known to be non medication compliant. Patient uncooperative, section 12 was started on the community. Patient not answering questions As per M5 discharge summary Oct 2021: Patient remains stable; patient has surpassed his former baseline.? Continues to be optimistic, no AVH no SI, delusional thinking able to be ignored.? ...... Says will continue taking medications.? Patient has had numerous psychiatric hospitalizations, Often re-presented within days of discharge; he remains vulnerable for relapse with substance abuse and Mood any emotional decompensation; however these are chronic issues For patient of which is well aware.? Currently he is doing better than typewriter ribbon winder has ever seen him and staff who know him well concur.? Patient is hopeful and optimistic that he can remain stable and that current medication regimen will remain as helpful as he is currently experiencing. Patient is not in imminent risk for harm to self or others and his request for discharge honored. Discharge medications included- Clozapine 100 mg morning and 200 mg at bedtime, Depakote 2000 mg at bedtime and trazodone 100 mg at bedtime. Today: Required IM medications last night due to agitation. Noted potassium level was low, now normal. Absolute neutrophil count on 07/01/2023 was 4900. tox screen largely unremarkable. No Depakote level was done. Liver enzymes were elevated and on repeat were trending down. Discussed with Nursing. Patient has been declining medications. Has been hostile at times. With typewriter ribbon winder today, was very eager to meet according to staff, however with typewriter ribbon winder he appeared very paranoid, internally preoccupied, pacing, had fists clenched at times, was asking typewriter ribbon winder if typewriter ribbon winder was influencing patient's body movements and posture. Patient later apologize and would feel more comfortable talking tomorrow. He Was agreeable to Ativan for agitation. Aware Of substance issues in the past, however patient has been very agitated in the ED and trying to minimize physical aggression, while very psychotic. When psychosis and improved, there will be no longer a reason to utilize Ativan. Will also order clozapine and Depakote. Will order a clozapine 50 mg at bedtime id a faster titration than usual, in the context of patient being able to tolerate 300 mg previously and the benefit of treating significant psychosis and aggression outweighs the risks of a faster titration in the context of being able to tolerate 300 mg previously. REMS system updated and pharmacy aware. Inpatient bed search ongoing. Section 12 appropriate. Past Psychiatric History: -Hx of multiple psych admissions, [place] 07/[place] [facility] [place], M5 05/2021 -No current OP providers. Hx of lack of follow up with OP providers -Past med trials: Risperdal, olanzapine, paliperidone, depakote, haldol (dystonic) Review of Systems Review of Systems Yes Unobtainable due to mental status [facility] Medical History Schizoaffective disorder, bipolar type Bipolar 1 disorder Alcohol abuse Family History: mother - bipolar disorder father - bipolar disorder sister - post- depression, anxiety Social History: Unclear currently. As per chart historically: born in [place], raised by his mother. has one sister. did not graduate from . was with a woman for 11 years and he now has an 11 yo daughter. he is from the girl's mother. Lives alone in an apartment. Trauma History: some hx; not clear on details Diagnostics Vital Signs (24Hr): Vital Signs - 24 hr 07/02/23 22:44 07/03/23 00:29 07/03/23 08:54 Temperature 97.6 F Pulse Rate 89 79 Respiratory Rate 17 17 16 Blood Pressure 137/90 H Pulse Oximetry 94 100 Oxygen Delivery Method Room Air Room Air 07/03/23 15:05 Temperature Pulse Rate 74 Respiratory Rate 16 Blood Pressure Pulse Oximetry 99 Oxygen Delivery Method Room Air BMI result Body Mass Index 28.3 Labs 07/01/23 14:59 07/03/23 09:05 Labs: Laboratory Results - last 48 hr 07/01/23 07/01/23 07/02/23 14:59 22:43 19:09 WBC 14.5 H RBC 4.03 L Hgb 13.5 L Hct 37.4 L MCV 92.8 MCH 34.6 H MCHC 37.0 H RDW 11.2 Plt Count 249 MPV 9.8 Immature Gran % (Auto) 0.6 H Neut % (Auto) 79.9 H Lymph % (Auto) 9.5 L [place] % (Auto) 9.6 Eos % (Auto) 0.1 Baso % (Auto) 0.3 Lymph # (Auto) 1.4 [place] # (Auto) 1.4 H Eos # (Auto) 0.0 Baso # (Auto) 0.0 Abs Immat Gran (auto) 0.09 H Absolute Neuts (auto) 11.6 H Absolute Nucleated RBC 0.000 Nucleated RBC % (auto) 0.0 Smear Tech's Comments VERIFIED Sodium Potassium Chloride Carbon Dioxide Anion Gap BUN Creatinine Estim Creat Clear Calc Estimated GFR Random Glucose Calcium Urine Color Yellow Urine Appearance Clear Urine pH 6.5 Ur Specific [place] 1.010 Urine Protein Negative Urine Glucose (UA) Negative Urine Ketones Trace Urine Blood Negative Urine Nitrite Negative Ur Leukocyte Esterase Negative Urine Opiates Screen Not Detected Ur Buprenorphine Scrn Not Detected Ur Oxycodone Screen Not Detected Urine Methadone Screen Not Detected Urine Fentanyl Screen Not Detected Ur Barbiturates Screen Not Detected Ur Phencyclidine Scrn Not Detected Ur Amphetamines Screen Not Detected U Benzodiazepines Scrn Not Detected Urine Cocaine Screen Not Detected U Marijuana (THC) Screen POSITIVE H 07/03/23 09:05 WBC RBC Hgb Hct MCV MCH MCHC RDW Plt Count MPV Immature Gran % (Auto) Neut % (Auto) Lymph % (Auto) [place] % (Auto) Eos % (Auto) Baso % (Auto) Lymph # (Auto) [place] # (Auto) Eos # (Auto) Baso # (Auto) Abs Immat Gran (auto) Absolute Neuts (auto) Absolute Nucleated RBC Nucleated RBC % (auto) Smear Tech's Comments Sodium 139 Potassium 3.5 Chloride 100 Carbon Dioxide 28 Anion Gap 15 BUN 10 Creatinine 0.76 Estim Creat Clear Calc 117.7 Estimated GFR > 60 Random Glucose 92 Calcium 10.0 D Urine Color Urine Appearance Urine pH Ur Specific [place] Urine Protein Urine Glucose (UA) Urine Ketones Urine Blood Urine Nitrite Ur Leukocyte Esterase Urine Opiates Screen Ur Buprenorphine Scrn Ur Oxycodone Screen Urine Methadone Screen Urine Fentanyl Screen Ur Barbiturates Screen Ur Phencyclidine Scrn Ur Amphetamines Screen U Benzodiazepines Scrn Urine Cocaine Screen U Marijuana (THC) Screen Mental Status Exam Mental Status Exam Narrative: Hospital clothing. Alert and oriented. Irritable. Guarded. Internally preoccupied. Paranoid with typewriter ribbon winder. Pacing. Fist clenching intermittently. No evidence of SI. Insight and judgment poor. Medications Medications Current Medications Clozapine (Clozapine 25 Mg Tablet) 50 mg PO BEDTIME FANNIE Divalproex Sodium (Divalproex Sodium 500 Mg Tablet.Dr) 2,000 mg PO BEDTIME FANNIE Lorazepam (Lorazepam 1 Mg Tablet) 2 mg PO 6XD PRN PRN Reason: anxiety/restlessness Last Admin: 07/03/23 14:38 Dose: 2 mg Nicotine Polacrilex (Nicotine Polacrilex 2 Mg Gum) 2 mg BUCCAL RQ4H PRN PRN Reason: Nicotine Cravings Last Admin: 07/03/23 15:24 Dose: 2 mg Allergies Allergies Allergy/AdvReac Type Severity Reaction Status Date / Time No Known Allergies Allergy Verified 07/01/23 20:57 Assessment & Plan Assessment & Plan (1) Schizoaffective disorder, bipolar type: Status: Acute Code(s): F25.0 - Schizoaffective disorder, bipolar type Plan Was agreeable to Ativan for agitation. Aware Of substance issues in the past, however patient has been very agitated in the ED and trying to minimize physical aggression, while very psychotic. When psychosis and improved, there will be no longer a reason to utilize Ativan. Will also order clozapine and Depakote. Will order a clozapine 50 mg at bedtime ie a faster titration than usual, in the context of patient being able to tolerate 300 mg previously and the benefit of treating significant psychosis and aggression outweighs the risks of a faster titration in the context of being able to tolerate 300 mg previously. REMS system updated and pharmacy aware. Inpatient bed search ongoing. Section 12 appropriate. Total time managing care of this patient today ____ minutes.
[2023-07-03] MEDS: cloZAPine 25 MG TABLET 50 MG PO (19:31)
[2023-07-03] MEDS: Divalproex Sodium 500 MG TABLET.DR 2000 MG PO (19:31)
[2023-07-04] MEDS: Nicotine Polacrilex 2 MG GUM BUCCAL ×6 (04:07→21:09)
[2023-07-04] MEDS: LORazepam 1 MG TABLET 2 MG PO ×4 (04:10→20:04)
[2023-07-04 04:32] VITALS: PULSE 94; RESP 17; TEMP 36.4; O2SAT 100
--- NOTE | 2023-07-04 05:21 | PC.NURSE ---
Patient slept intermittently with total 6 hours, no distress observed/reported, no major behavior issues, deposition per [facility] is section-12 inpatient bed search, med compliant, PRN Ativan 2 mg administered at 1931 and 0410 with good effect, VSS, no distress observed/reported, will continue to monitor
--- NOTE | 2023-07-04 07:53 | PC.NURSE ---
Assumed care of patient at 0645, patient pacing around BH pod, offering no complaints to this RN. Patient listening to music on pod headphones to calm down. Patient is otherwise in no apparent distress. continue plan of care for inpatient bedsearch
--- NOTE | 2023-07-04 13:05 | PM.PSYCN ---
History of Present Illness Date of Service: 07/04/2023 Chief Complaint: SEC 12,NON MED COMP,UNCOOP,NON VIOL PER EMS HPI Narrative: Follow up from initial consult 07/03/23- see for more detail/background. Overall: Was agreeable to Ativan for agitation. Aware Of substance issues in the past, however patient has been very agitated in the ED and trying to minimize physical aggression, while very psychotic. When psychosis and improved, there will be no longer a reason to utilize Ativan. Will also order clozapine and Depakote. Will order a clozapine 50 mg at bedtime ie a faster titration than usual, in the context of patient being able to tolerate 300 mg previously and the benefit of treating significant psychosis and aggression outweighs the risks of a faster titration in the context of being able to tolerate 300 mg previously. REMS system updated and pharmacy aware. Inpatient bed search ongoing. Section 12 appropriate. Ativan 2mg given 3-4 times since yesterday. Accepted clozapine 50mg and depakote 2000mg last night. Today with auto service writer still paranoi, guarded, irritable, on edge. Focused on discharge- informed will not be discharged today. Making verbal threats regarding same. Reports he just needs trazodone- will order 100mg tonight. Accepted ativan 2mg for agitation PO. Past Psychiatric History: -Hx of multiple psych admissions, [place] [facility] [place]5 [place] -No current OP providers. Hx of lack of follow up with OP providers -Past med trials: Risperdal, olanzapine, paliperidone, depakote, haldol (dystonic) [facility] Medical History Schizoaffective disorder, bipolar type Bipolar 1 disorder Alcohol abuse Family History: mother - bipolar disorder father - bipolar disorder sister - post- depression, anxiety Social History: Unclear currently. As per chart historically: born in [place], raised by his mother. has one sister. did not graduate from . was with a woman for 11 years and he now has an 11 yo daughter. he is from the girl's mother. Lives alone in an apartment. Trauma History: some hx; not clear on details Diagnostics Vital Signs (24Hr): Vital Signs - 24 hr 07/03/23 15:05 07/04/23 04:32 Temperature 97.6 F Pulse Rate 74 94 Respiratory Rate 16 17 Pulse Oximetry 99 100 Oxygen Delivery Method Room Air Room Air BMI result Body Mass Index 28.3 Labs 07/01/23 14:59 07/03/23 09:05 Labs: Laboratory Results - last 48 hr 07/02/23 07/03/23 19:09 09:05 Sodium 139 Potassium 3.5 Chloride 100 Carbon Dioxide 28 Anion Gap 15 BUN 10 Creatinine 0.76 Estim Creat Clear Calc 117.7 Estimated GFR > 60 Random Glucose 92 Calcium 10.0 D Urine Color Yellow Urine Appearance Clear Urine pH 6.5 Ur Specific [place] 1.010 Urine Protein Negative Urine Glucose (UA) Negative Urine Ketones Trace Urine Blood Negative Urine Nitrite Negative Ur Leukocyte Esterase Negative Mental Status Exam Mental Status Exam Narrative: Hospital clothing. Alert and oriented. Irritable. Guarded. Internally preoccupied. Paranoid with auto service writer. Pacing. No evidence of SI. Insight and judgment poor. Medications Medications Current Medications Clozapine (Clozapine 25 Mg Tablet) 50 mg PO BEDTIME [facility] Last Admin: 07/03/23 19:31 Dose: 50 mg Divalproex Sodium (Divalproex Sodium 500 Mg Tablet.) 2,000 mg PO BEDTIME [facility] Last Admin: 07/03/23 19:31 Dose: 2,000 mg Lorazepam (Lorazepam 1 Mg Tablet) 2 mg PO 6XD PRN PRN Reason: anxiety/restlessness Last Admin: 07/04/23 08:47 Dose: 2 mg Nicotine Polacrilex (Nicotine Polacrilex 2 Mg Gum) 2 mg BUCCAL RQ4H PRN PRN Reason: Nicotine Cravings Last Admin: 07/04/23 08:08 Dose: 2 mg Trazodone HCl (Trazodone Hcl 100 Mg Tablet) 100 mg PO BEDTIME [facility] Allergies Allergies Allergy/AdvReac Type Severity Reaction Status Date / Time No Known Allergies Allergy Verified 07/01/23 20:57 Assessment & Plan Assessment & Plan (1) Schizoaffective disorder, bipolar type: Status: Acute Code(s): F25.0 - Schizoaffective disorder, bipolar type Plan 07/03/23: Was agreeable to Ativan for agitation. Aware Of substance issues in the past, however patient has been very agitated in the ED and trying to minimize physical aggression, while very psychotic. When psychosis and improved, there will be no longer a reason to utilize Ativan. Will also order clozapine and Depakote. Will order a clozapine 50 mg at bedtime ie a faster titration than usual, in the context of patient being able to tolerate 300 mg previously and the benefit of treating significant psychosis and aggression outweighs the risks of a faster titration in the context of being able to tolerate 300 mg previously. REMS system updated and pharmacy aware. Inpatient bed search ongoing. Section 12 appropriate. 07/04/23: Inpatient bed search ongoing. Section 12 appropriate. Will add trazodone 100mg hs. Will schedule clozapine to increase to 100mg starting 07/04 (goal would be prev dose of 300mg total). Continue depakote 2000mg Total time managing care of this patient today ____ minutes.
--- NOTE | 2023-07-04 15:44 | PC.NURSE ---
Patient met with Dr. Felder again today, started on Trazodone at night for sleeping. Patient occasionally gets agitated but with staff redirection, patient is able to calm down. Patient was medicated with PRN ativan twice today without issue. continue plan of care for inpt bedsearch
[2023-07-04 15:49] VITALS: BP 134/82; PULSE 72; RESP 18; TEMP 36.1; O2SAT 100
[2023-07-04] MEDS: Ibuprofen 600 MG TABLET PO (16:16)
--- NOTE | 2023-07-04 19:19 | PC.NURSE ---
patient ambulates ad myron periodically nearly constantly asking staff for his personal items rec'd nicotine gum from t/w seemingly not accepting that he cant have his personal items now.
[2023-07-04] MEDS: Divalproex Sodium 500 MG TABLET.DR 2000 MG PO (20:04)
[2023-07-04] MEDS: traZODone HCL 100 MG TABLET PO (20:05)
[2023-07-04] MEDS: cloZAPine 25 MG TABLET 50 MG PO (20:05)
--- NOTE | 2023-07-04 22:36 | PC.NURSE ---
patient coming out of room roughly every 10-15 minutes and asking for his hoodie, phone, wandering in or near other clients rooms, requiring redirection.
[2023-07-05] MEDS: LORazepam 1 MG TABLET 2 MG PO ×3 (00:02→20:19)
--- NOTE | 2023-07-05 01:01 | PC.NURSE ---
patient continues for the last half hour being fixated on getting his phone, dc'ing, making phone calls....patient seems to not recall lthat hes been here as long as he has, nor that he's asked staff for the same items several times in the last few hours.
[2023-07-05 01:06] VITALS: PULSE 85; RESP 18; TEMP 36.4; O2SAT 99
--- NOTE | 2023-07-05 05:38 | PC.NURSE ---
patient appeared to sleep from [id number] today uninterruptedly
[2023-07-05] MEDS: Nicotine Polacrilex 2 MG GUM BUCCAL ×5 (05:42→21:05)
--- NOTE | 2023-07-05 07:30 | PC.NURSE ---
Assumed care of patient at 0645, patient up, ambulating around BH pod with steady gait, occasionally intrusive to others privacy but responding better to re-direction than days prior. Patient now showering, offering no complaints to this RN. Continue plan of care for S12, inpatient bedsearch
[2023-07-05 07:55] VITALS: BP 150/90; PULSE 113; RESP 14; TEMP 36.4; O2SAT 95
[2023-07-05] MEDS: Ibuprofen 400 MG TABLET PO (12:34)
[2023-07-05 13:30] VITALS: BP 131/78; PULSE 87; RESP 16; TEMP 36.8; O2SAT 98; BMI 31.5
--- NOTE | 2023-07-05 13:36 | P.HPPSP_ITS ---
HPI Date of Service: 07/05/23 Chief Complaint: psychosis non compliance Sources of Information: patient interviewed, chart reviewed and crisis/core team assessment reviewed Additional Sources of Information: Patient seen and evaluated 07/05/2023 approximately 13 30 HPI Healthcare Proxy: No Guardianship: No Narrative: The patient is a 28-year-old male brought into the emergency room on a section 12 after being evaluated in the community by [facility]. Patient reportedly has been increasingly psychotic acting bizarrely disrobing talking in a bizarre manner any experiencing intrusive hallucinations from his neighbor. He made suicidal statements when seen in the community saying just shoot me kill me he has a history of multiple psychiatric hospitalizations has been noncompliant with medications apparently for a number of months. Patient does use marijuana on a regular basis. The patient has stated that he does not need medication is not currently in outpatient psychiatric care he was restarted on clozapine and Depakote in the emergency room by Dr. Felder Past Psychiatric History: -Hx of multiple psych admissions, last IPLOC 07/2021 at [facility] [place] M3, M5 05/2021 -No current OP providers. Hx of lack of follow up with OP providers -Past med trials: Risperdal, olanzapine, paliperidone, depakote, haldol (dystonic) Medical Evaluation Reviewed: Yes Recent hypokalemia [facility] Medical History Schizoaffective disorder, bipolar type Bipolar 1 disorder Alcohol abuse Family History: mother - bipolar disorder father - bipolar disorder sister - post- depression, anxiety Social History: Unclear currently. As per chart historically: born in [place], raised by his mother. has one sister. did not graduate from . was with a woman for 11 years and he now has an 11 yo daughter. he is from the girl's mother. Lives alone in an apartment. Substance History: Regular marijuana and alcohol use intense cravings for marijuana and nicotine vaping Trauma History: some hx; not clear on details Diagnostics Vital Signs (24Hr): Vital Signs - 24 hr 07/04/23 15:49 07/05/23 01:06 07/05/23 07:55 Temperature 97 F 97.6 F 97.5 F Pulse Rate 72 85 113 H Respiratory Rate 18 18 14 Blood Pressure 134/82 150/90 H Pulse Oximetry 100 99 95 Oxygen Delivery Method Room Air Room Air Room Air 07/05/23 13:30 Temperature 98.3 F Pulse Rate 87 Respiratory Rate 16 Blood Pressure 131/78 Pulse Oximetry 98 Oxygen Delivery Method Room Air BMI result Body Mass Index 31.5 Labs 07/06/23 07:34 07/06/23 07:34 Meds/Allergies Meds Home Medications ?Medication ?Instructions ?Recorded ?Confirmed ?Type No Known Home Meds 07/02/23 07/02/23 History Allergies Allergies Allergy/AdvReac Type Severity Reaction Status Date / Time No Known Allergies Allergy Verified 07/01/23 20:57 Mental Status Exam Mental Status Exam Narrative: Patient is seen in his room he is pacing and restless. Mood anxious irritable dysphoric asking to be discharged this is all his sister's fault. Denies hallucinations but talks about how he can hear what his neighbors saying and because it bounces off the ken can not explain recent behavior disrobing agitation markedly poor insight and judgment stating he just needs marijuana to treat himself denies having psychiatric illness or needing medication denies active SI or HI poor impulse control mood instability Assessment & Plan Assessment & Plan (1) Schizoaffective disorder, bipolar type: Status: Acute Code(s): F25.0 - Schizoaffective disorder, bipolar type (2) Cannabis use disorder, mild, abuse: Status: Acute Code(s): F12.10 - Cannabis abuse, uncomplicated Plan Patient admitted on a section 12 B history of multiple psychiatric hospitalizations his agitated and history of schizoaffective disorder appears to be in psychotic agitated state. Had done well reportedly on Clozaril Depakote in the past. He is somewhat anemic question etiology patient with long history of noncompliance has failed Invega olanzapine in the past unclear if will take clozapine on any regular basis might do better with a long-acting injectable. Need additional information from family outpatient provider records available encourage therapeutic [place] compliance patient currently admitted on a section 12 B Patient educated on: diagnosis, medication risk/benefits and substance abuse Informed Consent: further education needed Reason for continued partial hosp. stay Substantial Risk for: harm to self, inability to function and rapid decompensation Certification I certify that partial hospital treatment is medically necessary due to the symptoms and problems resulting from the patient's mental illness and the failure to treat the patient at the partial hospital level of care would likely result in the patient requiring inpatient psychiatric care which could not be prevented at a less intensive level of care. Time Spent With Patient Time: Total time managing care of this patient today _50___ minutes.
[2023-07-05 14:16] LABS: Neut%MD 71.7 %; Neutrophils Absolute Auto 5.2 x10*3/uL (2.0-8.3); WBCANC 7.3 X10*3/uL
[2023-07-05 14:24] LABS: Ammonia 24 umol/L (13-55)
--- NOTE | 2023-07-05 15:43 | PC.ADMIT ---
Adi Murphy was admitted to at 1318 from [facility] on a 12b for treatment of crisis, secondary to Unspecified Schizophrenia Spectrum and Other Psychotic Disorders. Prior to admission, patient was evaluated by [facility] crisis on 07/02/23 due to report of increased decompensation, bizzare behavior such as disrobing, med non-compliance and responding to internal stimuli, per crisis report. This also included attempting to avoid the [facility] crisis assessment, elope from the scene, and making vague SI statements, per report. According to the patient, he had an argument with his sister over babysitting. ?Any time I push back and get angry, they think I?m manic and that I need to go to the hospital. They keep doing this to me!? Pt was irritated with constricted affect over the need for hospitalization. However, he admitted to medication non-compliance recently. ?I haven?t needed the medications recently.? During admission assessment, patient denied current SI/HI or perceptual disturbances. Pt appears to lack insight into need or reason for admission and appears paranoid and suspicious of staff. Pt did restart medication in ED and thought process appears more organized than first presentation to ED. He reports poor sleep due to not having his marijuana vape. Pt was also agitated that he was not given access to his nicotine vape as well. Pt denies other current substance use including alcohol at this time. Skin check performed at admission to unit. Pt has minor abrasions to left calf. Otherwise skin is intact. No hx of acute or chronic medical issues noted or reported at this time. Pt on 15 minute checks at this time.
[2023-07-05 20:00] VITALS: BP 147/78; PULSE 98; RESP 16; TEMP 36.6; O2SAT 98
[2023-07-05] MEDS: Divalproex Sodium 500 MG TABLET.DR 2000 MG PO (20:16)
[2023-07-05] MEDS: cloZAPine 100 MG TABLET PO (20:17)
[2023-07-05] MEDS: traZODone HCL 100 MG TABLET PO (20:17)
[2023-07-06] MEDS: Nicotine Polacrilex 2 MG GUM BUCCAL ×6 (02:34→20:16)
[2023-07-06] MEDS: LORazepam 1 MG TABLET 2 MG PO ×4 (02:54→15:16)
[2023-07-06] MEDS: Acetaminophen 325 MG TABLET 650 MG PO (03:04)
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
[2023-07-06 07:34] VITALS: BP 145/87; PULSE 91; RESP 14; TEMP 36.6; O2SAT 100
[2023-07-06 07:40] LABS: MANUAL DIFF FLAG NO
[2023-07-06 07:46] LABS: Basophils Percent Auto 0.3 % (0-2); Eosinophils Absolute Auto 0.2 X10*3/uL (0.0-0.4); Eosinophils Percent Auto 1.8 % (0-4); Hematocrit 38.1 % (42.0-52.0); Hemoglobin 13.7 g/dl (14.0-18.0); Imm Gran Abs Auto 0.04 X10*3/uL (0.00-0.03); Imm Gran Pct Auto 0.4 % (0.0-0.4); Lymphocytes Absolute Auto 1.7 X10*3/uL (1.2-4.9); Lymphocytes Percent Auto 17.4 % (20-40); Mean Corpuscular Hemoglobin 35.3 pg (27.0-33.0); Mean Corpuscular Volume 98.2 fL (80.0-98.0); Mean Platelet Volume 9.2 fL (9.4-12.4); Monocytes Absolute Auto 0.8 X10*3/uL (0.1-1.2); Monocytes Percent Auto 8.4 % (2-11); Neutrophils Absolute Auto 6.9 x10*3/uL (2.0-8.3); Neutrophils Percent Auto 71.7 % (45-73); Platelet Count 291 X10*3/uL (160-400); Red Blood Count 3.88 X10*6/uL (4.60-5.80); Red Cell Distribution Width 11.2 % (11.0-16.0); White Blood Count 9.7 X10*3/uL (4.8-10.8)
[2023-07-06 07:58] LABS: Alanine Aminotransferase 78 U/L (0-40); Albumin Level 3.8 g/dL (3.5-5.0); Alkaline Phosphatase 72 U/L (39-117); Anion Gap 14 (12-20); Aspartate Amino Transferase 50 U/L (5-37); Bilirubin Total 0.3 mg/dL (0.0-1.0); Blood Urea Nitrogen 8 mg/dL (9-16); Calcium 9.3 mg/dL (8.4-10.2); Carbon Dioxide 24 mmol/L (22-29); Chloride 107 mmol/L (96-108); Cholesterol 151 mg/dL (<200); Creatinine Clr Calc Pharmacy 128.8; Estimated Glomerular Filt Rate > 60; Glucose Fasting 102 mg/dL (60-99); HDL Cholesterol 42 mg/dL (>40); LDL Cholesterol Calculated 90 mg/dL (<100); Potassium 4.1 mmol/L (3.3-5.1); Sodium 141 mmol/L (135-145); Total Protein 6.6 g/dL (6.5-8.0); Triglycerides 98 mg/dL (<150)
[2023-07-06] MEDS: Nicotine 21 MG PATCH.TD24 TRANSDERMA (08:20)
[2023-07-06] MEDS: OLANZapine ODT 10 MG TAB.RAPDIS TRANSLINGU ×2 (08:36→17:43)
--- NOTE | 2023-07-06 19:43 | HO.PSYCHPN ---
Subjective Subjective Date of Service: 07/06/23 Reason For Visit: psychosis non compliance Subjective Notes: Conditional Voluntary Interim History: Pt had difficulty sleeping. He had ativan 2mg prn and olanzapine earlier today. At time of interview he presented as sedated, did wake up but was mumbling. He denied any concerns, continues to present as internally preoccupied. Review of Systems Review of Systems Yes Unobtainable due to mental condition and Unobtainable due to mental status Diagnostics Vital Signs (24Hr): Vital Signs - 24 hr 07/05/23 20:00 07/06/23 07:34 Temperature 97.9 F 97.8 F Pulse Rate 98 91 Respiratory Rate 16 14 Blood Pressure 147/78 H 145/87 H Pulse Oximetry 98 100 Oxygen Delivery Method Room Air Room Air BMI result Body Mass Index 31.5 Labs 07/06/23 07:34 07/06/23 07:34 Labs: Laboratory Results - last 48 hr 07/05/23 07/06/23 14:06 07:34 WBC 9.7 RBC 3.88 L Hgb 13.7 L Hct 38.1 L MCV 98.2 H D MCH 35.3 H MCHC 36.0 RDW 11.2 Plt Count 291 MPV 9.2 L Immature Gran % (Auto) 0.4 Neut % (Auto) 71.7 Lymph % (Auto) 17.4 L [place] % (Auto) 8.4 Eos % (Auto) 1.8 Baso % (Auto) 0.3 Lymph # (Auto) 1.7 [place] # (Auto) 0.8 Eos # (Auto) 0.2 Baso # (Auto) 0.0 Abs Immat Gran (auto) 0.04 H Absolute Neuts (auto) 5.2 6.9 Absolute Nucleated RBC 0.000 Nucleated RBC % (auto) 0.0 Sodium 141 Potassium 4.1 Chloride 107 Carbon Dioxide 24 Anion Gap 14 BUN 8 L Creatinine 0.73 Estim Creat Clear Calc 128.8 Estimated GFR > 60 Fasting Glucose 102 H Calcium 9.3 D Total Bilirubin 0.3 AST 50 H ALT 78 H Alkaline Phosphatase 72 Ammonia 24 Total Protein 6.6 Albumin 3.8 Triglycerides 98 Cholesterol 151 LDL Cholesterol, Calc 90 HDL Cholesterol 42 Medications Medications Current Medications Acetaminophen (Acetaminophen 325 Mg Tablet) 650 mg PO Q6H PRN PRN Reason: Headache/Pain Mild Scale (1-3) Last Admin: 07/06/23 03:04 Dose: 650 mg Al Hydroxide/Mg Hydroxide (Magnesium Hydrox/Alum Hydrox 30 Ml Oral.Susp) 30 ml PO Q6H PRN PRN Reason: Heartburn/Nausea Clozapine (Clozapine 100 Mg Tablet) 100 mg PO BEDTIME [facility] Last Admin: 07/05/23 20:17 Dose: 100 mg Clozapine (Clozapine 25 Mg Tablet) 25 mg PO DAILY [facility] Divalproex Sodium (Divalproex Sodium 500 Mg Tablet.Dr) 2,000 mg PO BEDTIME [facility] Last Admin: 07/05/23 20:16 Dose: 2,000 mg Lorazepam (Lorazepam 1 Mg Tablet) 1 mg PO Q8H PRN PRN Reason: anxiety/restlessness Magnesium Hydroxide (Milk Of Magnesia 30 Ml Oral.Susp) 30 ml PO DAILY PRN PRN Reason: Constipation Nicotine (Nicotine 21 Mg Patch.Td24) 21 mg TRANSDERMA DAILY [facility] Last Admin: 07/06/23 08:20 Dose: 21 mg Nicotine Polacrilex (Nicotine Polacrilex 2 Mg Gum) 2 mg BUCCAL Q2H PRN PRN Reason: Nicotine Cravings Last Admin: 07/06/23 17:45 Dose: 2 mg Olanzapine (Olanzapine Odt 10 Mg Tab.Rapdis) 10 mg TRANSLINGU TID PRN PRN Reason: Psychotic agitation Last Admin: 07/06/23 17:43 Dose: 10 mg Trazodone HCl (Trazodone Hcl 100 Mg Tablet) 100 mg PO BEDTIME [facility] Last Admin: 07/05/23 20:17 Dose: 100 mg Allergies Allergies Allergy/AdvReac Type Severity Reaction Status Date / Time haloperidol [From Haldol] AdvReac Severe dystonia Verified 07/06/23 19:43 Assessment & Plan Assessment & Plan (1) Schizoaffective disorder, bipolar type: Status: Acute Code(s): F25.0 - Schizoaffective disorder, bipolar type (2) Cannabis use disorder, mild, abuse: Status: Acute Code(s): F12.10 - Cannabis abuse, uncomplicated Plan Patient admitted on a section 12 B history of multiple psychiatric hospitalizations his agitated and history of schizoaffective disorder appears to be in psychotic agitated state. Had done well reportedly on Clozaril Depakote in the past. He is somewhat anemic question etiology patient with long history of noncompliance has failed Invega olanzapine in the past unclear if will take clozapine on any regular basis might do better with a long-acting injectable. Need additional information from family outpatient provider records available encourage therapeutic [place] compliance patient currently admitted on a section 12 B PLAN 07/05 increase clozaril 25mg po daily, 100mg po qhs. he has been out of the hospital for longer period of time with clozaril. Reason for continued inpatient stay Substantial Risk for: inability to function Time Spent With Patient Time: Total time managing care of this patient today ____ minutes.
[2023-07-06 20:00] VITALS: BP 156/91; PULSE 111; RESP 18; TEMP 36.5; O2SAT 100
[2023-07-06] MEDS: LORazepam 1 MG TABLET PO (20:11)
[2023-07-06] MEDS: Divalproex Sodium 500 MG TABLET.DR 2000 MG PO (20:11)
[2023-07-06] MEDS: cloZAPine 100 MG TABLET PO (20:11)
[2023-07-06] MEDS: Sennosides/Docusate Sodium TABLET 1 TAB PO (20:11)
[2023-07-06] MEDS: Ibuprofen 800 MG TABLET PO (21:11)
[2023-07-07] MEDS: Nicotine Polacrilex 2 MG GUM BUCCAL ×5 (02:17→20:27)
[2023-07-07] MEDS: OLANZapine ODT 10 MG TAB.RAPDIS TRANSLINGU (02:17)
[2023-07-07] MEDS: Sennosides/Docusate Sodium TABLET 1 TAB PO ×2 (09:04→20:23)
[2023-07-07] MEDS: cloZAPine 25 MG TABLET PO (09:04)
[2023-07-07] MEDS: Nicotine 21 MG PATCH.TD24 TRANSDERMA (09:04)
--- NOTE | 2023-07-07 11:42 | HO.PSYCHPN ---
Subjective Subjective Date of Service: 07/07/23 Reason For Visit: psychosis non compliance Interim History: Pt had difficulty sleeping. He had ativan 2mg prn and olanzapine earlier today. At time of interview he presented as sedated, did wake up but was mumbling. He denied any concerns, continues to present as internally preoccupied. Review of Systems Review of Systems Yes Unobtainable due to mental condition and Unobtainable due to mental status Mental Status Exam Mental Status Exam Narrative: Appearance: wearing hospital gown, somewhat somnolent at times, in NAD Behavior: guarded Psychomotor: some retardation noted Speech: mostly clear, at times mumbles, spontaneous Mood: good Affect: somnolent SI: denies HI: denies AH/VH: appears internally preoccupied, although he denies it Delusions: paranoia towards sister Insight/judgment: poor x 2. Memory/cog: alert, oriented to place, month, year vague to situation Diagnostics Vital Signs (24Hr): Vital Signs - 24 hr 07/06/23 20:00 Temperature 97.7 F Pulse Rate 111 H Respiratory Rate 18 Blood Pressure 156/91 H Pulse Oximetry 100 Oxygen Delivery Method Room Air BMI result Body Mass Index 31.5 Labs 07/06/23 07:34 07/06/23 07:34 Labs: Laboratory Results - last 48 hr 07/05/23 07/06/23 14:06 07:34 WBC 9.7 RBC 3.88 L Hgb 13.7 L Hct 38.1 L MCV 98.2 H D MCH 35.3 H MCHC 36.0 RDW 11.2 Plt Count 291 MPV 9.2 L Immature Gran % (Auto) 0.4 Neut % (Auto) 71.7 Lymph % (Auto) 17.4 L [place] % (Auto) 8.4 Eos % (Auto) 1.8 Baso % (Auto) 0.3 Lymph # (Auto) 1.7 [place] # (Auto) 0.8 Eos # (Auto) 0.2 Baso # (Auto) 0.0 Abs Immat Gran (auto) 0.04 H Absolute Neuts (auto) 5.2 6.9 Absolute Nucleated RBC 0.000 Nucleated RBC % (auto) 0.0 Sodium 141 Potassium 4.1 Chloride 107 Carbon Dioxide 24 Anion Gap 14 BUN 8 L Creatinine 0.73 Estim Creat Clear Calc 128.8 Estimated GFR > 60 Fasting Glucose 102 H Calcium 9.3 D Total Bilirubin 0.3 AST 50 H ALT 78 H Alkaline Phosphatase 72 Ammonia 24 Total Protein 6.6 Albumin 3.8 Triglycerides 98 Cholesterol 151 LDL Cholesterol, Calc 90 HDL Cholesterol 42 Medications Medications Current Medications Acetaminophen (Acetaminophen 325 Mg Tablet) 650 mg PO Q6H PRN PRN Reason: Headache/Pain Mild Scale (1-3) Last Admin: 07/06/23 03:04 Dose: 650 mg Al Hydroxide/Mg Hydroxide (Magnesium Hydrox/Alum Hydrox 30 Ml Oral.Susp) 30 ml PO Q6H PRN PRN Reason: Heartburn/Nausea Clonazepam (Clonazepam 1 Mg Tablet) 1 mg PO BEDTIME FANNIE Clozapine (Clozapine 100 Mg Tablet) 100 mg PO BEDTIME PENDING SALE TO [facility] Last Admin: 07/06/23 20:11 Dose: 100 mg Clozapine (Clozapine 25 Mg Tablet) 25 mg PO DAILY PENDING SALE TO [facility] Last Admin: 07/07/23 09:04 Dose: 25 mg Ibuprofen (Ibuprofen 800 Mg Tablet) 800 mg PO Q8H PRN PRN Reason: Dental Pain Last Admin: 07/06/23 21:11 Dose: 800 mg Lorazepam (Lorazepam 1 Mg Tablet) 1 mg PO Q8H PRN PRN Reason: anxiety/restlessness Magnesium Hydroxide (Milk Of Magnesia 30 Ml Oral.Susp) 30 ml PO DAILY PRN PRN Reason: Constipation Nicotine (Nicotine 21 Mg Patch.Td24) 21 mg TRANSDERMA DAILY PENDING SALE TO [facility] Last Admin: 07/07/23 09:04 Dose: 21 mg Nicotine Polacrilex (Nicotine Polacrilex 2 Mg Gum) 2 mg BUCCAL Q2H PRN PRN Reason: Nicotine Cravings Last Admin: 07/07/23 06:02 Dose: 2 mg Olanzapine (Olanzapine Odt 10 Mg Tab.Rapdis) 10 mg TRANSLINGU TID PRN PRN Reason: Psychotic agitation Last Admin: 07/07/23 02:17 Dose: 10 mg Senna/Docusate Sodium (Sennosides/Docusate Sodium Tablet) 1 tab PO BID PENDING SALE TO [facility] Last Admin: 07/07/23 09:04 Dose: 1 tab Allergies Allergies Allergy/AdvReac Type Severity Reaction Status Date / Time haloperidol [From Haldol] AdvReac Severe dystonia Verified 07/06/23 19:43 Assessment & Plan Assessment & Plan (1) Schizoaffective disorder, bipolar type: Status: Acute Code(s): F25.0 - Schizoaffective disorder, bipolar type (2) Cannabis use disorder, mild, abuse: Status: Acute Code(s): F12.10 - Cannabis abuse, uncomplicated Plan Patient admitted on a section 12 B history of multiple psychiatric hospitalizations his agitated and history of schizoaffective disorder appears to be in psychotic agitated state. Had done well reportedly on Clozaril Depakote in the past. He is somewhat anemic question etiology patient with long history of noncompliance has failed Invega olanzapine in the past unclear if will take clozapine on any regular basis might do better with a long-acting injectable. Need additional information from family outpatient provider records available encourage therapeutic [place] compliance patient currently admitted on a section 12 B PLAN 07/05 increase clozaril 25mg po daily, 100mg po qhs. he has been out of the hospital for longer period of time with clozaril. 07/06 appears somnolent, no additional medications given but continues to have difficulty sleeping. LFTs trending down- however, not typical of him to have LFT elevation. Will add hep panel. will hold depakote for now as he appears sedated/somnolent. continue clozaril. Reason for continued inpatient stay Substantial Risk for: inability to function Time Spent With Patient Time: Total time managing care of this patient today ____ minutes.
[2023-07-07 12:27] LABS: Alanine Aminotransferase 71 U/L (0-40); Alkaline Phosphatase 77 U/L (39-117); Aspartate Amino Transferase 38 U/L (5-37); Bilirubin Direct 0.1 mg/dL (0.0-0.5); Bilirubin Total 0.3 mg/dL (0.0-1.0); Total Protein 7.2 g/dL (6.5-8.0)
[2023-07-07 12:57] LABS: HBc Num1 0.05 S/CO (0.00-0.79); Hepatitis B Core Antibody Nonreactive (Nonreactive); Hepatitis B Surface Antigen Negative (Negative); ~HepC Num1 0.07 S/CO (0.00-0.79); ~Hepatitis B Surface Antibody NONREACTIVE (Nonreactive); ~Hepatitis C Antibody Nonreactive (Nonreactive)
[2023-07-07 13:04] LABS: Iron 96 mcg/dL (45-160); Percent Iron Saturation 29 % (15-50); Total Iron Binding Capacity 333 mcg/dL (228-428); Unsaturated Iron Binding 237 ug/dL
[2023-07-07 13:07] LABS: Hepatitis A Antibody IgM 0.13 Index (0-0.79); ~Hepatitis A Antibody IgM Nonreactive (Nonreactive)
[2023-07-07 13:26] LABS: Folate 9.5 ng/mL (> or = 4.0); Vitamin B12 695 pg/mL (200-900)
[2023-07-07 15:30] VITALS: BP 159/93; PULSE 128; RESP 16; TEMP 36.8; O2SAT 100
[2023-07-07] MEDS: LORazepam 1 MG TABLET PO (15:52)
[2023-07-07 17:59] VITALS: BP 161/106; PULSE 118
[2023-07-07 20:00] VITALS: BP 160/101; PULSE 122; RESP 18; TEMP 36.9; O2SAT 100
[2023-07-07] MEDS: cloZAPine 100 MG TABLET PO (20:23)
[2023-07-07] MEDS: clonazePAM 1 MG TABLET PO (20:23)
[2023-07-07] MEDS: Ibuprofen 800 MG TABLET PO (22:45)
--- NOTE | 2023-07-07 22:47 | PC.NURSE ---
Adi given Motrin PO prn for tooth pain 07/08
[2023-07-08] MEDS: Nicotine Polacrilex 2 MG GUM BUCCAL ×4 (00:04→16:47)
[2023-07-08] MEDS: Acetaminophen 325 MG TABLET 650 MG PO (06:01)
[2023-07-08] MEDS: Nicotine 21 MG PATCH.TD24 TRANSDERMA (06:13)
--- NOTE | 2023-07-08 06:14 | PC.NURSE ---
Adi reported an intense craving for nicotine, patient given nicotine patch early. Given patch at 0615.
[2023-07-08 07:00] VITALS: BMI 31.9
[2023-07-08 07:29] VITALS: BP 149/92; PULSE 114; RESP 16; TEMP 36.4; O2SAT 100
[2023-07-08] MEDS: Sennosides/Docusate Sodium TABLET 1 TAB PO ×2 (08:40→20:14)
[2023-07-08] MEDS: LORazepam 1 MG TABLET PO (08:46)
[2023-07-08 08:49] VITALS: BP 134/97; PULSE 115
--- NOTE | 2023-07-08 14:52 | HO.PSYCHPN ---
Subjective Subjective Date of Service: 07/08/23 Reason For Visit: psychosis non compliance Subjective Notes: Rios Warning Interim History: refusing meds, denying mental illness. rios warning provided. per staff, disorganized, kissing and hugging peer. taking ativan PRN. c/o clozapine side effects - drooling. signed CV then signed 3-day notice. Mental Status Exam Mental Status Exam Narrative: Appearance: dressed in street clothes, adequately Behavior: guarded Psychomotor: no PMA/PMR Speech: spontaneous, incr rate and amount Mood: good Affect: constricted, hyper-intense, mod-labile SI: denies HI: denies AH/VH: none expressed Delusions: paranoia towards sister Insight/judgment: poor x 2. Memory/cog: alert, oriented to place, month, year vague to situation Diagnostics Vital Signs (24Hr): Vital Signs - 24 hr 07/07/23 15:30 07/07/23 17:59 07/07/23 20:00 Temperature 98.3 F 98.5 F Pulse Rate 128 H 118 H 122 H Respiratory Rate 16 18 Blood Pressure 159/93 H 161/106 H 160/101 H Pulse Oximetry 100 100 Oxygen Delivery Method Room Air Room Air 07/08/23 07:29 07/08/23 08:49 Temperature 97.5 F Pulse Rate 114 H 115 H Respiratory Rate 16 Blood Pressure 149/92 H 134/97 H Pulse Oximetry 100 Oxygen Delivery Method Room Air BMI result Body Mass Index 31.9 Labs 07/06/23 07:34 07/06/23 07:34 Labs: Laboratory Results - last 48 hr 07/07/23 11:50 Iron 96 TIBC 333 % Saturation 29 Unsat Iron Binding 237 Total Bilirubin 0.3 Direct Bilirubin 0.1 AST 38 H ALT 71 H Alkaline Phosphatase 77 Total Protein 7.2 Albumin 4.0 Vitamin B12 695 Folate 9.5 Hepatitis A IgM Ab Nonreactive Hep Bs Antigen Negative Hep Bs Antibody NONREACTIVE Hep B Core Total Ab Nonreactive Hepatitis C Ab (EIA) Nonreactive Medications Medications Current Medications Acetaminophen (Acetaminophen 325 Mg Tablet) 650 mg PO Q6H PRN PRN Reason: Headache/Pain Mild Scale (1-3) Last Admin: 07/08/23 06:01 Dose: 650 mg Al Hydroxide/Mg Hydroxide (Magnesium Hydrox/Alum Hydrox 30 Ml Oral.Susp) 30 ml PO Q6H PRN PRN Reason: Heartburn/Nausea Clonazepam (Clonazepam 1 Mg Tablet) 1 mg PO BEDTIME ON LICENSE OF [facility] Last Admin: 07/07/23 20:23 Dose: 1 mg Clozapine (Clozapine 100 Mg Tablet) 100 mg PO BEDTIME ON LICENSE OF [facility] Last Admin: 07/07/23 20:23 Dose: 100 mg Clozapine (Clozapine 25 Mg Tablet) 25 mg PO DAILY ON LICENSE OF [facility] Last Admin: 07/08/23 08:53 Dose: Not Given Ibuprofen (Ibuprofen 800 Mg Tablet) 800 mg PO Q8H PRN PRN Reason: Dental Pain Last Admin: 07/07/23 22:45 Dose: 800 mg Magnesium Hydroxide (Milk Of Magnesia 30 Ml Oral.Susp) 30 ml PO DAILY PRN PRN Reason: Constipation Nicotine (Nicotine 21 Mg Patch.Td24) 21 mg TRANSDERMA DAILY ON LICENSE OF [facility] Last Admin: 07/08/23 06:13 Dose: 21 mg Nicotine Polacrilex (Nicotine Polacrilex 2 Mg Gum) 2 mg BUCCAL Q2H PRN PRN Reason: Nicotine Cravings Last Admin: 07/08/23 11:20 Dose: 2 mg Olanzapine (Olanzapine Odt 10 Mg Tab.Rapdis) 10 mg TRANSLINGU TID PRN PRN Reason: Psychotic agitation Last Admin: 07/07/23 02:17 Dose: 10 mg Senna/Docusate Sodium (Sennosides/Docusate Sodium Tablet) 1 tab PO BID ON LICENSE OF [facility] Last Admin: 07/08/23 08:40 Dose: 1 tab Allergies Allergies Allergy/AdvReac Type Severity Reaction Status Date / Time haloperidol [From Haldol] AdvReac Severe dystonia Verified 07/06/23 19:43 Assessment & Plan Assessment & Plan (1) Schizoaffective disorder, bipolar type: Status: Acute Code(s): F25.0 - Schizoaffective disorder, bipolar type (2) Cannabis use disorder, mild, abuse: Status: Acute Code(s): F12.10 - Cannabis abuse, uncomplicated Plan Patient admitted on a section 12 B history of multiple psychiatric hospitalizations his agitated and history of schizoaffective disorder appears to be in psychotic agitated state. Had done well reportedly on Clozaril Depakote in the past. He is somewhat anemic question etiology patient with long history of noncompliance has failed Invega olanzapine in the past unclear if will take clozapine on any regular basis might do better with a long-acting injectable. Need additional information from family outpatient provider records available encourage therapeutic [place] compliance patient currently admitted on a section 12 B PLAN 07/05 increase clozaril 25mg po daily, 100mg po qhs. he has been out of the hospital for longer period of time with clozaril. 07/06 appears somnolent, no additional medications given but continues to have difficulty sleeping. LFTs trending down- however, not typical of him to have LFT elevation. Will add hep panel. will hold depakote for now as he appears sedated/somnolent. continue clozaril. 07/07: DC ativan as it is not a sustainable treatment in someone refusing other medications for psychosis and jazmine. pt is already on klonopin at HS. refusing clozaril, says he won't take depakote either. denies he has mental illness. rios warning provided. signed CV, then signed 3-day notice. Reason for continued inpatient stay Substantial Risk for: harm to others, inability to function and rapid decompensation Time Spent With Patient Time: Total time managing care of this patient today __35__ minutes.
[2023-07-08 20:00] VITALS: BP 151/97; PULSE 129; RESP 18; TEMP 36.7; O2SAT 100
[2023-07-08] MEDS: Ibuprofen 800 MG TABLET PO (20:12)
[2023-07-08] MEDS: OLANZapine ODT 10 MG TAB.RAPDIS TRANSLINGU (20:14)
[2023-07-08] MEDS: traZODone HCL 50 MG TABLET PO (21:24)
[2023-07-08 21:41] VITALS: PULSE 113
[2023-07-09] MEDS: Nicotine Polacrilex 2 MG GUM BUCCAL ×3 (00:09→07:14)
[2023-07-09] MEDS: traZODone HCL 50 MG TABLET PO (03:12)
[2023-07-09] MEDS: Acetaminophen 325 MG TABLET 650 MG PO (04:08)
[2023-07-09 07:36] VITALS: BP 140/91; PULSE 105; RESP 16; TEMP 35.9; O2SAT 97
--- NOTE | 2023-07-09 16:27 | P.PNPSI_ITS ---
Subjective Subjective Date of Service: 07/09/23 Reason For Visit: psychosis non compliance Interim History: calm, cooperative. irritated MD has DCed ativan. rationale explained to pt. MD notes he also DCed klonotika for the same reason. pt states he will not take any other medication if MD does not prescribe him ativan. per staff, 3-day notice up . withdrawn, guarded, labile, irritable. refusing clozapine. slept about 2-3 hours only. Mental Status Exam Mental Status Exam Narrative: Appearance: dressed in street clothes, adequately Behavior: guarded Psychomotor: no PMA/PMR Speech: spontaneous, incr rate and amount Mood: good Affect: constricted, hyper-intense, mod-labile SI: denies HI: denies AH/VH: none expressed Delusions: paranoia towards sister Insight/judgment: poor x 2. Memory/cog: alert, oriented to place, month, year vague to situation Diagnostics Vital Signs (24Hr): Vital Signs - 24 hr 07/08/23 20:00 07/08/23 21:41 07/09/23 07:36 Temperature 98.1 F 96.7 F L Pulse Rate 129 H 113 H 105 H Respiratory Rate 18 16 Blood Pressure 151/97 H 140/91 H Pulse Oximetry 100 97 Oxygen Delivery Method Room Air Room Air BMI result Body Mass Index 31.9 Labs 07/06/23 07:34 07/06/23 07:34 Medications Medications Current Medications Acetaminophen (Acetaminophen 325 Mg Tablet) 650 mg PO Q6H PRN PRN Reason: Headache/Pain Mild Scale (1-3) Last Admin: 07/09/23 04:08 Dose: 650 mg Al Hydroxide/Mg Hydroxide (Magnesium Hydrox/Alum Hydrox 30 Ml Oral.Susp) 30 ml PO Q6H PRN PRN Reason: Heartburn/Nausea Clozapine (Clozapine 25 Mg Tablet) 25 mg PO BEDTIME FANNIE Divalproex Sodium (Divalproex Sodium Er 500 Mg Tab.Er.24h) 1,500 mg PO BEDTIME FANNEI Ibuprofen (Ibuprofen 800 Mg Tablet) 800 mg PO Q8H PRN PRN Reason: Dental Pain Last Admin: 07/08/23 20:12 Dose: 800 mg Magnesium Hydroxide (Milk Of Magnesia 30 Ml Oral.Susp) 30 ml PO DAILY PRN PRN Reason: Constipation Nicotine (Nicotine 21 Mg Patch.Td24) 21 mg TRANSDERMA DAILY FANNIE Last Admin: 07/09/23 08:46 Dose: Not Given Nicotine Polacrilex (Nicotine Polacrilex 2 Mg Gum) 2 mg BUCCAL Q2H PRN PRN Reason: Nicotine Cravings Last Admin: 07/09/23 07:14 Dose: 2 mg Olanzapine (Olanzapine Odt 10 Mg Tab.Rapdis) 10 mg TRANSLINGU TID PRN PRN Reason: Psychotic agitation Last Admin: 07/08/23 20:14 Dose: 10 mg Senna/Docusate Sodium (Sennosides/Docusate Sodium Tablet) 1 tab PO BID [facility] Last Admin: 07/09/23 08:46 Dose: Not Given Trazodone HCl (Trazodone Hcl 50 Mg Tablet) 150 mg PO BEDTIME PRN PRN Reason: insomnia Allergies Allergies Allergy/AdvReac Type Severity Reaction Status Date / Time haloperidol [From Haldol] AdvReac Severe dystonia Verified 07/06/23 19:43 Assessment & Plan Assessment & Plan (1) Schizoaffective disorder, bipolar type: Status: Acute Code(s): F25.0 - Schizoaffective disorder, bipolar type (2) Cannabis use disorder, mild, abuse: Status: Acute Code(s): F12.10 - Cannabis abuse, uncomplicated Plan Patient admitted on a section 12 B history of multiple psychiatric hospitalizations his agitated and history of schizoaffective disorder appears to be in psychotic agitated state. Had done well reportedly on Clozaril Depakote in the past. He is somewhat anemic question etiology patient with long history of noncompliance has failed Invega olanzapine in the past unclear if will take clozapine on any regular basis might do better with a long-acting injectable. Need additional information from family outpatient provider records available encourage therapeutic [place] compliance patient currently admitted on a section 12 B PLAN 07/05 increase clozaril 25mg po daily, 100mg po qhs. he has been out of the hospital for longer period of time with clozaril. 07/06 appears somnolent, no additional medications given but continues to have difficulty sleeping. LFTs trending down- however, not typical of him to have LFT elevation. Will add hep panel. will hold depakote for now as he appears sedated/somnolent. continue clozaril. 07/07: DC ativan as it is not a sustainable treatment in someone refusing other medications for psychosis and jazmine. pt is already on klonopin at . refusing clozaril, says he won't take depakote either. denies he has mental illness. zabala warning provided. signed CV, then signed 3-day notice. 07/08: refusing clozapine. DC klonopin. restart VPA. 3-day notice matures 07/12. do not give benzos, as we would like to have pt take neuroleptics and proper mood stabilizers instead and do not want to mask or partially treat his jazmine with unsustainable treatment, pending maturation of 3-day notice. Reason for continued inpatient stay Substantial Risk for: harm to self, harm to others and inability to function Time Spent With Patient Time: Total time managing care of this patient today __25__ minutes.
[2023-07-09 20:10] VITALS: BP 150/96; PULSE 104; RESP 20; TEMP 36.9; O2SAT 97
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
[2023-07-10] MEDS: Nicotine Polacrilex 2 MG GUM BUCCAL ×6 (05:15→21:22)
[2023-07-10 08:00] VITALS: BP 160/102; PULSE 104; RESP 18; TEMP 36.6; O2SAT 97
[2023-07-10] MEDS: Nicotine 21 MG PATCH.TD24 TRANSDERMA (08:39)
--- NOTE | 2023-07-10 10:46 | HO.PSYCHPN ---
Subjective Subjective Date of Service: 07/10/23 Reason For Visit: psychosis non compliance Subjective Notes: 3 Day Interim History: Reviewed with Dr. Radford. Observed listening to music with unit headphone and dancing down the hallway. Pt stated, I feel good today. I don't need anything . pt refusing medications. pt denies SI/HI/VH/AH. Medication Compliance: No Attending Groups: Intermittent Review of Systems Constitutional: Reports as per HPI Eyes: Reports as per HPI Reports as per HPI Cardiovascular: Reports as per HPI Respiratory: Reports as per HPI Gastrointestinal: Reports as per HPI Genitourinary: Reports as per HPI Musculoskeletal: Reports as per HPI Skin/Breast: Reports as per HPI Reports as per HPI Psychiatric: Reports as per HPI Endocrine: Reports as per HPI Hematologic/Lymphatic: Reports as per HPI Allergic/Immunologic: Reports as per HPI Mental Status Exam Mental Status Exam Narrative: Pt is alert and oriented; behavior is dancing in the hallway; dressed in casual attire; mood is described as good ; eye contact appropriate; Speech is normal rate, volume and prosody and not pressured; focused on discharge; denies SI/HI/VH/AH. Diagnostics Vital Signs (24Hr): Vital Signs - 24 hr 07/09/23 20:10 07/10/23 08:00 Temperature 98.4 F 97.8 F Pulse Rate 104 H 104 H Respiratory Rate 20 18 Blood Pressure 150/96 H 160/102 H Pulse Oximetry 97 97 Oxygen Delivery Method Room Air Room Air BMI result Body Mass Index 31.9 Labs 07/06/23 07:34 07/06/23 07:34 Medications Medications Current Medications Acetaminophen (Acetaminophen 325 Mg Tablet) 650 mg PO Q6H PRN PRN Reason: Headache/Pain Mild Scale (1-3) Last Admin: 07/09/23 04:08 Dose: 650 mg Al Hydroxide/Mg Hydroxide (Magnesium Hydrox/Alum Hydrox 30 Ml Oral.Susp) 30 ml PO Q6H PRN PRN Reason: Heartburn/Nausea Clozapine (Clozapine 25 Mg Tablet) 25 mg PO BEDTIME FANNIE Last Admin: 07/09/23 22:03 Dose: Not Given Divalproex Sodium (Divalproex Sodium Er 500 Mg Tab.Er.24h) 1,500 mg PO BEDTIME FANNIE Last Admin: 07/09/23 22:03 Dose: Not Given Ibuprofen (Ibuprofen 800 Mg Tablet) 800 mg PO Q8H PRN PRN Reason: Dental Pain Last Admin: 07/08/23 20:12 Dose: 800 mg Magnesium Hydroxide (Milk Of Magnesia 30 Ml Oral.Susp) 30 ml PO DAILY PRN PRN Reason: Constipation Nicotine (Nicotine 21 Mg Patch.Td24) 21 mg TRANSDERMA DAILY FANNIE Last Admin: 07/10/23 08:39 Dose: 21 mg Nicotine Polacrilex (Nicotine Polacrilex 2 Mg Gum) 2 mg BUCCAL Q2H PRN PRN Reason: Nicotine Cravings Last Admin: 07/10/23 05:15 Dose: 2 mg Olanzapine (Olanzapine Odt 10 Mg Tab.Rapdis) 10 mg TRANSLINGU TID PRN PRN Reason: Psychotic agitation Last Admin: 07/08/23 20:14 Dose: 10 mg Senna/Docusate Sodium (Sennosides/Docusate Sodium Tablet) 1 tab PO BID [facility] Last Admin: 07/10/23 08:25 Dose: Not Given Trazodone HCl (Trazodone Hcl 50 Mg Tablet) 150 mg PO BEDTIME PRN PRN Reason: insomnia Allergies Allergies Allergy/AdvReac Type Severity Reaction Status Date / Time haloperidol [From Haldol] AdvReac Severe dystonia Verified 07/06/23 19:43 Assessment & Plan Assessment & Plan (1) Schizoaffective disorder, bipolar type: Status: Acute Code(s): F25.0 - Schizoaffective disorder, bipolar type (2) Cannabis use disorder, mild, abuse: Status: Acute Code(s): F12.10 - Cannabis abuse, uncomplicated Plan Patient admitted on a section 12 B history of multiple psychiatric hospitalizations his agitated and history of schizoaffective disorder appears to be in psychotic agitated state. Had done well reportedly on Clozaril Depakote in the past. He is somewhat anemic question etiology patient with long history of noncompliance has failed Invega olanzapine in the past unclear if will take clozapine on any regular basis might do better with a long-acting injectable. Need additional information from family outpatient provider records available encourage therapeutic [place] compliance patient currently admitted on a section 12 B PLAN 07/05 increase clozaril 25mg po daily, 100mg po qhs. he has been out of the hospital for longer period of time with clozaril. 07/06 appears somnolent, no additional medications given but continues to have difficulty sleeping. LFTs trending down- however, not typical of him to have LFT elevation. Will add hep panel. will hold depakote for now as he appears sedated/somnolent. continue clozaril. 07/07: DC ativan as it is not a sustainable treatment in someone refusing other medications for psychosis and jazmine. pt is already on klonopin at HS. refusing clozaril, says he won't take depakote either. denies he has mental illness. zabala warning provided. signed CV, then signed 3-day notice. 07/08: refusing clozapine. DC klonopin. restart VPA. 3-day notice matures 07/12. do not give benzos, as we would like to have pt take neuroleptics and proper mood stabilizers instead and do not want to mask or partially treat his jazmine with unsustainable treatment, pending maturation of 3-day notice. 07/09: continue to encourage medication compliance. Patient educated on: diagnosis and medication risk/benefits Informed Consent: understands and further education needed Reason for continued inpatient stay Substantial Risk for: med/psych decompensation Time Spent With Patient Time: Total time managing care of this patient today _20___ minutes.
[2023-07-10 20:00] VITALS: RESP 20
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
[2023-07-11] MEDS: OLANZapine ODT 10 MG TAB.RAPDIS TRANSLINGU ×2 (06:59→15:04)
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
[2023-07-11] MEDS: OLANZapine 10 MG VIAL IM (07:54)
[2023-07-11 08:05] VITALS: BP 161/68; PULSE 105; RESP 18; TEMP 36.6; O2SAT 98
[2023-07-11 08:20] VITALS: BP 153/81; PULSE 100; RESP 18; TEMP 36.1; O2SAT 97
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
--- NOTE | 2023-07-11 08:32 | P.PNPSI_ITS ---
Subjective Subjective Date of Service: 07/11/23 Reason For Visit: psychosis non compliance Subjective Notes: Conditional Voluntary Interim History: Reviewed with Dr. Radford. Nursing reported pt was responding to internal stimuli and began posturing at staff and hitting RN's hand in the morning. Restraint orders were ordered from on-call MD, Dr. Radford. T/W examined patient at 0825. Pt was calm and requesting to be released from restraint chair to lay down. Pt released at 0830. Pt slept rest of morning with 1:1 staff present. Medication Compliance: No Review of Systems Constitutional: Reports as per HPI Eyes: Reports as per HPI Reports as per HPI Cardiovascular: Reports as per HPI Respiratory: Reports as per HPI Gastrointestinal: Reports as per HPI Genitourinary: Reports as per HPI Musculoskeletal: Reports as per HPI Skin/Breast: Reports as per HPI Reports as per HPI Psychiatric: Reports as per HPI Endocrine: Reports as per HPI Hematologic/Lymphatic: Reports as per HPI Allergic/Immunologic: Reports as per HPI Mental Status Exam Mental Status Exam Narrative: Pt is alert and oriented; dressed in casual attire; mood is described as fine ; eye contact appropriate; Speech is normal rate, volume; pt restrained this morning; unable to assess full mental status d/t pt sleeping. Diagnostics Vital Signs (24Hr): Vital Signs - 24 hr 07/10/23 20:00 Respiratory Rate 20 BMI result Body Mass Index 31.9 Labs 07/06/23 07:34 07/06/23 07:34 Medications Medications Current Medications Acetaminophen (Acetaminophen 325 Mg Tablet) 650 mg PO Q6H PRN PRN Reason: Headache/Pain Mild Scale (1-3) Last Admin: 07/09/23 04:08 Dose: 650 mg Al Hydroxide/Mg Hydroxide (Magnesium Hydrox/Alum Hydrox 30 Ml Oral.Susp) 30 ml PO Q6H PRN PRN Reason: Heartburn/Nausea Clozapine (Clozapine 25 Mg Tablet) 25 mg PO BEDTIME FANNIE Last Admin: 07/10/23 22:18 Dose: Not Given Divalproex Sodium (Divalproex Sodium Er 500 Mg Tab.Er.24h) 1,500 mg PO BEDTIME FANNIE Last Admin: 07/10/23 22:18 Dose: Not Given Ibuprofen (Ibuprofen 800 Mg Tablet) 800 mg PO Q8H PRN PRN Reason: Dental Pain Last Admin: 05/09/24 20:12 Dose: 800 mg Magnesium Hydroxide (Milk Of Magnesia 30 Ml Oral.Susp) 30 ml PO DAILY PRN PRN Reason: Constipation Nicotine (Nicotine 21 Mg Patch.Td24) 21 mg TRANSDERMA DAILY [facility] Last Admin: 07/10/23 08:39 Dose: 21 mg Nicotine Polacrilex (Nicotine Polacrilex 2 Mg Gum) 2 mg BUCCAL Q2H PRN PRN Reason: Nicotine Cravings Last Admin: 07/10/23 21:22 Dose: 2 mg Olanzapine (Olanzapine Odt 10 Mg Tab.Rapdis) 10 mg TRANSLINGU TID PRN PRN Reason: Psychotic agitation Last Admin: 07/11/23 06:59 Dose: 10 mg Senna/Docusate Sodium (Sennosides/Docusate Sodium Tablet) 1 tab PO BID [facility] Last Admin: 07/10/23 22:18 Dose: Not Given Trazodone HCl (Trazodone Hcl 50 Mg Tablet) 150 mg PO BEDTIME PRN PRN Reason: insomnia Allergies Allergies Allergy/AdvReac Type Severity Reaction Status Date / Time haloperidol [From Haldol] AdvReac Severe dystonia Verified 07/06/23 19:43 Assessment & Plan Assessment & Plan (1) Schizoaffective disorder, bipolar type: Status: Acute Code(s): F25.0 - Schizoaffective disorder, bipolar type (2) Cannabis use disorder, mild, abuse: Status: Acute Code(s): F12.10 - Cannabis abuse, uncomplicated Plan Patient admitted on a section 12 B history of multiple psychiatric hospitalizations his agitated and history of schizoaffective disorder appears to be in psychotic agitated state. Had done well reportedly on Clozaril Depakote in the past. He is somewhat anemic question etiology patient with long history of noncompliance has failed Invega olanzapine in the past unclear if will take clozapine on any regular basis might do better with a long-acting injectable. Need additional information from family outpatient provider records available encourage therapeutic [place] compliance patient currently admitted on a section 12 B PLAN 07/05 increase clozaril 25mg po daily, 100mg po qhs. he has been out of the hospital for longer period of time with clozaril. 07/06 appears somnolent, no additional medications given but continues to have difficulty sleeping. LFTs trending down- however, not typical of him to have LFT elevation. Will add hep panel. will hold depakote for now as he appears sedated/somnolent. continue clozaril. 07/07: DC ativan as it is not a sustainable treatment in someone refusing other medications for psychosis and jazmine. pt is already on klonopin at HS. refusing clozaril, says he won't take depakote either. denies he has mental illness. zabala warning provided. signed CV, then signed 3-day notice. 07/08: refusing clozapine. DC klonopin. restart VPA. 3-day notice matures 07/12. do not give benzos, as we would like to have pt take neuroleptics and proper mood stabilizers instead and do not want to mask or partially treat his jazmine with unsustainable treatment, pending maturation of 3-day notice. 07/09: continue to encourage medication compliance. 07/10: Nursing reported pt was responding to internal stimuli and began posturing at staff and hitting RN's hand in the morning. Restraint orders were ordered from on-call MD, Dr. Radford. T/W examined patient at 0825. Pt was calm and requesting to be released from restraint chair to lay down. Pt released at 0830. Pt slept rest of morning with 1:1 staff present. Patient educated on: other (unable to educate d/t sleeping) Reason for continued inpatient stay Substantial Risk for: med/psych decompensation Time Spent With Patient Time: Total time managing care of this patient today _20___ minutes.
--- NOTE | 2023-07-11 10:09 | PC.NURSE ---
Adi was agitated and aggressive towards peers and staff this morning and security had been called by staff. This medical technical writer was attempting to offer medication and Adi began striking out and knocked medication out of this medical technical writer's hand. He began charging at staff and was placed in physical hold at 07:50 and transitioned to restraint chair. He was given Zyprexa 10mg IM at 07:54 and remained in restraint chair until 08:30. He tolerated interventions without issue and is currently resting comfortably in his room and remains on close obs for intrusiveness and safety.
--- NOTE | 2023-07-11 10:53 | PC.NURSE ---
At time of change of shift, beginning at approximately 0730, Adi was observed becoming increasingly agitated, illogical, and verbally/physically aggressive. Pt was reported to be making threats to both staff and other patients. Patient was previously given Zyprexa 10mg PO PRN with no effect at 0659. Security was on the unit at 0730 attempting to assist with de-escalation, including allowing the patient to vent and give him space to gain control. However, at 0740, the patient charged at security, which resulted in a physical hold from 0740 to 0742. The patient was then observed in his room yelling at the nurses and security. Pt made statements including: ?She is a whore! There?s a snake in my brain! I will fuck you all up!? The patient subsequently struck the hand of YAHAIRA Villagomez, while she was holding medication. As a result, the patient was put in a physical hold at 0750 and placed in the restraint chair. Per Dr. Radford orders, patient was then administered Zyprexa 10mg IM at 0754. Patient remained in restraint chair until 0830. At which time, he contracted for safety, mood calmed and he requested to sleep in bed. No physical injury to patient or staff reported or observed. Pt tolerated physical and chemical restraint. No side effects noted or reported. Following interventions and restraint, patient remained in room resting. Close observation ongoing for intrusiveness and safety.
[2023-07-11] MEDS: Nicotine 21 MG PATCH.TD24 TRANSDERMA (13:48)
[2023-07-11] MEDS: Nicotine Polacrilex 2 MG GUM BUCCAL ×2 (16:59→20:34)
[2023-07-11] MEDS: cloZAPine 25 MG TABLET PO (20:03)
[2023-07-11] MEDS: Sennosides/Docusate Sodium TABLET 1 TAB PO (20:09)
[2023-07-11 20:20] VITALS: BP 164/97; PULSE 110; RESP 18; TEMP 37.1; O2SAT 96
[2023-07-11] MEDS: traZODone HCL 50 MG TABLET 150 MG PO (21:55)
[2023-07-11 22:10] VITALS: BP 151/84; PULSE 110; RESP 18; O2SAT 96
[2023-07-11] MEDS: Acetaminophen 325 MG TABLET 650 MG PO (22:21)
[2023-07-12] MEDS: Nicotine Polacrilex 2 MG GUM BUCCAL ×3 (06:01→21:18)
[2023-07-12 07:45] VITALS: BP 135/92; PULSE 123; RESP 16; TEMP 36.3; O2SAT 97
[2023-07-12] MEDS: Nicotine 21 MG PATCH.TD24 TRANSDERMA (08:00)
--- NOTE | 2023-07-12 14:19 | HO.PSYCHPN ---
Subjective Subjective Date of Service: 07/12/23 Reason For Visit: psychosis non compliance Interim History: reporting people outside his room from [id number] on wednesday talking shit about him, states he did well to hold it together until 0700, when he finally couldn't anymore and the code happened. also reported he c/o severe anxiety to RN and RN laughed in my face. per staff, 3-day up tomorrow. restrained, sexually inappropriate. hit RN in hand. saying hit me, bitch! to staff and peers, repeatedly. Mental Status Exam Mental Status Exam Narrative: Appearance: dressed in street clothes, adequately Behavior: guarded Psychomotor: PMA of pacing the halls Speech: spontaneous, incr rate and amount Mood: not assessed Affect: full range, hyper-intense, min-labile SI: none expressed HI: none expressed AH/VH: none expressed Delusions: paranoid delusions re staff's treatment of him Insight/judgment: poor x 2. Diagnostics Vital Signs (24Hr): Vital Signs - 24 hr 07/11/23 20:20 07/11/23 22:10 07/12/23 07:45 Temperature 98.8 F 97.4 F Pulse Rate 110 H 110 H 123 H Respiratory Rate 18 18 16 Blood Pressure 164/97 H 151/84 H 135/92 H Pulse Oximetry 96 96 97 Oxygen Delivery Method Room Air Room Air Room Air BMI result Body Mass Index 31.9 Labs 07/06/23 07:34 07/06/23 07:34 Medications Medications Current Medications Acetaminophen (Acetaminophen 325 Mg Tablet) 650 mg PO Q6H PRN PRN Reason: Headache/Pain Mild Scale (1-3) Last Admin: 07/11/23 22:21 Dose: 650 mg Al Hydroxide/Mg Hydroxide (Magnesium Hydrox/Alum Hydrox 30 Ml Oral.Susp) 30 ml PO Q6H PRN PRN Reason: Heartburn/Nausea Clozapine (Clozapine 25 Mg Tablet) 25 mg PO BEDTIME FANNIE Last Admin: 07/11/23 20:03 Dose: 25 mg Divalproex Sodium (Divalproex Sodium Er 500 Mg Tab.Er.24h) 1,500 mg PO BEDTIME FANNIE Last Admin: 07/11/23 20:04 Dose: Not Given Ibuprofen (Ibuprofen 800 Mg Tablet) 800 mg PO Q8H PRN PRN Reason: Dental Pain Last Admin: 07/08/23 20:12 Dose: 800 mg Magnesium Hydroxide (Milk Of Magnesia 30 Ml Oral.Susp) 30 ml PO DAILY PRN PRN Reason: Constipation Nicotine (Nicotine 21 Mg Patch.Td24) 21 mg TRANSDERMA DAILY FANNIE Last Admin: 07/12/23 08:00 Dose: 21 mg Nicotine Polacrilex (Nicotine Polacrilex 2 Mg Gum) 2 mg BUCCAL Q2H PRN PRN Reason: Nicotine Cravings Last Admin: 07/12/23 06:01 Dose: 2 mg Olanzapine (Olanzapine Odt 10 Mg Tab.Rapdis) 10 mg TRANSLINGU TID PRN PRN Reason: Psychotic agitation Last Admin: 07/11/23 15:04 Dose: 10 mg Senna/Docusate Sodium (Sennosides/Docusate Sodium Tablet) 1 tab PO BID FANNIE Last Admin: 07/12/23 08:01 Dose: Not Given Trazodone HCl (Trazodone Hcl 50 Mg Tablet) 150 mg PO BEDTIME PRN PRN Reason: insomnia Last Admin: 07/11/23 21:55 Dose: 150 mg Allergies Allergies Allergy/AdvReac Type Severity Reaction Status Date / Time haloperidol [From Haldol] AdvReac Severe dystonia Verified 07/06/23 19:43 Assessment & Plan Assessment & Plan (1) Schizoaffective disorder, bipolar type: Status: Acute Code(s): F25.0 - Schizoaffective disorder, bipolar type (2) Cannabis use disorder, mild, abuse: Status: Acute Code(s): F12.10 - Cannabis abuse, uncomplicated Plan Patient admitted on a section 12 B history of multiple psychiatric hospitalizations his agitated and history of schizoaffective disorder appears to be in psychotic agitated state. Had done well reportedly on Clozaril Depakote in the past. He is somewhat anemic question etiology patient with long history of noncompliance has failed Invega olanzapine in the past unclear if will take clozapine on any regular basis might do better with a long-acting injectable. Need additional information from family outpatient provider records available encourage therapeutic [place] compliance patient currently admitted on a section 12 B PLAN 07/05 increase clozaril 25mg po daily, 100mg po qhs. he has been out of the hospital for longer period of time with clozaril. 07/06 appears somnolent, no additional medications given but continues to have difficulty sleeping. LFTs trending down- however, not typical of him to have LFT elevation. Will add hep panel. will hold depakote for now as he appears sedated/somnolent. continue clozaril. 07/07: DC ativan as it is not a sustainable treatment in someone refusing other medications for psychosis and jazmine. pt is already on klonopin at HS. refusing clozaril, says he won't take depakote either. denies he has mental illness. zabala warning provided. signed CV, then signed 3-day notice. 07/08: refusing clozapine. DC klonopin. restart VPA. 3-day notice matures 07/12. do not give benzos, as we would like to have pt take neuroleptics and proper mood stabilizers instead and do not want to mask or partially treat his jazmine with unsustainable treatment, pending maturation of 3-day notice. 07/09: continue to encourage medication compliance. 07/10: Nursing reported pt was responding to internal stimuli and began posturing at staff and hitting RN's hand in the morning. Restraint orders were ordered from on-call MD, Dr. Radford. T/W examined patient at 0825. Pt was calm and requesting to be released from restraint chair to lay down. Pt released at 0830. Pt slept rest of morning with 1:1 staff present. 07/11: hyperverbal, paranoid delusions re treatment by staff. involuntary medication yesterday. continue current mgmt. Reason for continued inpatient stay Substantial Risk for: harm to self, harm to others, inability to function and rapid decompensation Time Spent With Patient Time: Total time managing care of this patient today __35__ minutes.
--- NOTE | 2023-07-12 15:37 | PC.NURSE ---
Patient refused xray at this time.
[2023-07-12] MEDS: Ibuprofen 800 MG TABLET PO (19:11)
[2023-07-12 22:30] VITALS: BP 133/80; PULSE 97; RESP 16; TEMP 36.6; O2SAT 96
[2023-07-12] MEDS: cloZAPine 25 MG TABLET PO (22:38)
[2023-07-12] MEDS: traZODone HCL 50 MG TABLET 150 MG PO (22:38)
[2023-07-12] MEDS: Sennosides/Docusate Sodium TABLET 1 TAB PO (22:38)
[2023-07-13] MEDS: Nicotine Polacrilex 2 MG GUM BUCCAL ×4 (01:55→23:33)
[2023-07-13 08:07] LABS: Neut%MD 54.7 %; WBCANC 9.2 X10*3/uL
[2023-07-13 08:20] VITALS: BP 134/79; PULSE 90; RESP 18; TEMP 36.3; O2SAT 98
[2023-07-13] MEDS: Nicotine 21 MG PATCH.TD24 TRANSDERMA (12:18)
[2023-07-13] MEDS: OLANZapine ODT 10 MG TAB.RAPDIS TRANSLINGU (12:19)
[2023-07-13] MEDS: Ibuprofen 800 MG TABLET PO (14:37)
--- NOTE | 2023-07-13 15:25 | HO.PSYCHPN ---
Subjective Subjective Date of Service: 07/13/23 Reason For Visit: psychosis non compliance Interim History: generally euphoric, dancing about the unit with headphones on. on realizing he would not be discharged today demonstrated lability and irritability. per staff, 3-day up today. guarded, labile, visible. paranoid. verbal outburst. anxious. declining PRNs. refused VPA, took clozaril 25.slept about 6 hours. filed for commitment today. Mental Status Exam Mental Status Exam Narrative: Appearance: dressed in street clothes, adequately Behavior: guarded Psychomotor: PMA of pacing the halls, dancing Speech: spontaneous, incr rate and amount Mood: not assessed Affect: full range, hyper-intense, mod-labile SI: none expressed HI: none expressed AH/VH: none expressed Delusions: paranoid delusions re staff's treatment of him Insight/judgment: poor x 2. Diagnostics Vital Signs (24Hr): Vital Signs - 24 hr 07/12/23 22:30 07/13/23 08:20 Temperature 97.8 F 97.4 F Pulse Rate 97 90 Respiratory Rate 16 18 Blood Pressure 133/80 134/79 Pulse Oximetry 96 98 Oxygen Delivery Method Room Air Room Air BMI result Body Mass Index 31.9 Labs 07/06/23 07:34 07/06/23 07:34 Labs: Laboratory Results - last 48 hr 07/13/23 07:59 Absolute Neuts (auto) 5.0 Medications Medications Current Medications Acetaminophen (Acetaminophen 325 Mg Tablet) 650 mg PO Q6H PRN PRN Reason: Headache/Pain Mild Scale (1-3) Last Admin: 07/11/23 22:21 Dose: 650 mg Al Hydroxide/Mg Hydroxide (Magnesium Hydrox/Alum Hydrox 30 Ml Oral.Susp) 30 ml PO Q6H PRN PRN Reason: Heartburn/Nausea Clozapine (Clozapine 25 Mg Tablet) 50 mg PO BEDTIME FANNIE Divalproex Sodium (Divalproex Sodium Er 500 Mg Tab.Er.24h) 1,500 mg PO BEDTIME FANNIE Last Admin: 07/12/23 22:21 Dose: Not Given Ibuprofen (Ibuprofen 800 Mg Tablet) 800 mg PO Q8H PRN PRN Reason: Dental Pain Last Admin: 07/13/23 14:37 Dose: 800 mg Magnesium Hydroxide (Milk Of Magnesia 30 Ml Oral.Susp) 30 ml PO DAILY PRN PRN Reason: Constipation Nicotine (Nicotine 21 Mg Patch.Td24) 21 mg TRANSDERMA DAILY [facility] Last Admin: 07/13/23 12:18 Dose: 21 mg Nicotine Polacrilex (Nicotine Polacrilex 2 Mg Gum) 2 mg BUCCAL Q2H PRN PRN Reason: Nicotine Cravings Last Admin: 07/13/23 11:26 Dose: 2 mg Olanzapine (Olanzapine Odt 10 Mg Tab.Rapdis) 10 mg TRANSLINGU TID PRN PRN Reason: Psychotic agitation Last Admin: 07/13/23 12:19 Dose: 10 mg Senna/Docusate Sodium (Sennosides/Docusate Sodium Tablet) 1 tab PO BID FANNIE Last Admin: 07/13/23 08:33 Dose: Not Given Trazodone HCl (Trazodone Hcl 100 Mg Tablet) 100 mg PO BEDTIME PRN PRN Reason: insomnia Allergies Allergies Allergy/AdvReac Type Severity Reaction Status Date / Time haloperidol [From Haldol] AdvReac Severe dystonia Verified 07/06/23 19:43 Assessment & Plan Assessment & Plan (1) Schizoaffective disorder, bipolar type: Status: Acute Code(s): F25.0 - Schizoaffective disorder, bipolar type (2) Cannabis use disorder, mild, abuse: Status: Acute Code(s): F12.10 - Cannabis abuse, uncomplicated Plan Patient admitted on a section 12 B history of multiple psychiatric hospitalizations his agitated and history of schizoaffective disorder appears to be in psychotic agitated state. Had done well reportedly on Clozaril Depakote in the past. He is somewhat anemic question etiology patient with long history of noncompliance has failed Invega olanzapine in the past unclear if will take clozapine on any regular basis might do better with a long-acting injectable. Need additional information from family outpatient provider records available encourage therapeutic [place] compliance patient currently admitted on a section 12 B PLAN 07/05 increase clozaril 25mg po daily, 100mg po qhs. he has been out of the hospital for longer period of time with clozaril. 07/06 appears somnolent, no additional medications given but continues to have difficulty sleeping. LFTs trending down- however, not typical of him to have LFT elevation. Will add hep panel. will hold depakote for now as he appears sedated/somnolent. continue clozaril. 07/07: DC ativan as it is not a sustainable treatment in someone refusing other medications for psychosis and jazmine. pt is already on klonopin at HS. refusing clozaril, says he won't take depakote either. denies he has mental illness. zabala warning provided. signed CV, then signed 3-day notice. 07/08: refusing clozapine. DC klonopin. restart VPA. 3-day notice matures 07/12. do not give benzos, as we would like to have pt take neuroleptics and proper mood stabilizers instead and do not want to mask or partially treat his jazmine with unsustainable treatment, pending maturation of 3-day notice. 07/09: continue to encourage medication compliance. 07/10: Nursing reported pt was responding to internal stimuli and began posturing at staff and hitting RN's hand in the morning. Restraint orders were ordered from on-call MD, Dr. Radford. T/W examined patient at 0825. Pt was calm and requesting to be released from restraint chair to lay down. Pt released at 0830. Pt slept rest of morning with 1:1 staff present. 07/11: hyperverbal, paranoid delusions re treatment by staff. involuntary medication yesterday. continue current mgmt. 07/12: euphoric, dancing; then labile, irritable, threatening to lisa. informed of filing and hearing date. Reason for continued inpatient stay Substantial Risk for: harm to self, harm to others and inability to function Time Spent With Patient Time: Total time managing care of this patient today __35__ minutes.
[2023-07-13] MEDS: cloZAPine 25 MG TABLET 50 MG PO (19:59)
[2023-07-13 20:00] VITALS: BP 146/81; PULSE 87; RESP 16; TEMP 36.1; O2SAT 97
[2023-07-13] MEDS: Sennosides/Docusate Sodium TABLET 1 TAB PO (20:00)
[2023-07-13] MEDS: Acetaminophen 325 MG TABLET 650 MG PO (20:33)
[2023-07-13] MEDS: traZODone HCL 100 MG TABLET PO (23:05)
[2023-07-14] MEDS: Ibuprofen 800 MG TABLET PO ×2 (02:53→11:28)
[2023-07-14] MEDS: Nicotine Polacrilex 2 MG GUM BUCCAL ×4 (04:50→20:06)
[2023-07-14 07:35] VITALS: BP 138/83; PULSE 92; RESP 16; TEMP 36.1; O2SAT 97
[2023-07-14] MEDS: Acetaminophen 325 MG TABLET 650 MG PO ×2 (07:43→18:42)
[2023-07-14] MEDS: Sennosides/Docusate Sodium TABLET 1 TAB PO ×2 (08:26→21:57)
[2023-07-14] MEDS: Nicotine 21 MG PATCH.TD24 TRANSDERMA (11:24)
[2023-07-14] MEDS: Amoxicillin/Potassium Clav 875 MG TABLET PO ×2 (13:36→21:57)
[2023-07-14] MEDS: carBAMazepine ER 100 MG TAB.ER.12H PO ×2 (13:36→21:57)
[2023-07-14] MEDS: Throat Lozenge, Medicated LOZENGE 1 LOZENGE MUCOUS MEM (14:31)
--- NOTE | 2023-07-14 15:10 | P.PNPSI_ITS ---
Subjective Subjective Date of Service: 07/14/23 Reason For Visit: psychosis non compliance Interim History: asking for JALEESA, which was denied based on elopement risk. pt alexy agitated, yelling, threw his water bottle. later met with MD and BALTAZAR Martinez, apologized, and indicated a willingness to take a mood stabilizer other than VPA. lithium and tegretol were discussed, pt opted for tegretol. also c/o dental infection/pain, MD agreed to Rx empiric antibx course. per staff, brighter and less paranoid eves. no sexualized conversations. took clozapine, refused VPA. Mental Status Exam Mental Status Exam Narrative: Appearance: dressed in street clothes, adequately Behavior: guarded Psychomotor: PMA of pacing the halls, dancing Speech: spontaneous, incr rate and amount Mood: not assessed Affect: full range, hyper-intense, mod-labile SI: none expressed HI: none expressed AH/VH: none expressed Delusions: paranoid delusions re staff's treatment of him Insight/judgment: poor x 2. Diagnostics Vital Signs (24Hr): Vital Signs - 24 hr 07/13/23 20:00 07/14/23 07:35 Temperature 96.9 F 96.9 F Pulse Rate 87 92 Respiratory Rate 16 16 Blood Pressure 146/81 H 138/83 Pulse Oximetry 97 97 Oxygen Delivery Method Room Air Room Air BMI result Body Mass Index 31.9 Labs 07/06/23 07:34 07/06/23 07:34 Labs: Laboratory Results - last 48 hr 07/13/23 07:59 Absolute Neuts (auto) 5.0 Medications Medications Current Medications Acetaminophen (Acetaminophen 325 Mg Tablet) 650 mg PO Q6H PRN PRN Reason: Headache/Pain Mild Scale (1-3) Last Admin: 07/14/23 07:43 Dose: 650 mg Al Hydroxide/Mg Hydroxide (Magnesium Hydrox/Alum Hydrox 30 Ml Oral.Susp) 30 ml PO Q6H PRN PRN Reason: Heartburn/Nausea Amoxicillin/Clavulanate Potassium (Amoxicillin/Potassium Clav 875 Mg Tablet) 875 mg PO BID FANNIE Last Admin: 07/14/23 13:36 Dose: 875 mg Benzocaine (Throat Lozenge, Medicated Lozenge) 1 lozenge MUCOUS MEM Q1H PRN PRN Reason: Sore Throat Last Admin: 07/14/23 14:31 Dose: 1 lozenge Carbamazepine (Carbamazepine Er 100 Mg Tab.Er.12h) 100 mg PO BID [facility] Last Admin: 07/14/23 13:36 Dose: 100 mg Clozapine (Clozapine 25 Mg Tablet) 75 mg PO BEDTIME FANNIE Ibuprofen (Ibuprofen 800 Mg Tablet) 800 mg PO Q8H PRN PRN Reason: Dental Pain Last Admin: 07/14/23 11:28 Dose: 800 mg Magnesium Hydroxide (Milk Of Magnesia 30 Ml Oral.Susp) 30 ml PO DAILY PRN PRN Reason: Constipation Nicotine (Nicotine 21 Mg Patch.Td24) 21 mg TRANSDERMA DAILY [facility] Last Admin: 07/14/23 11:24 Dose: 21 mg Nicotine Polacrilex (Nicotine Polacrilex 2 Mg Gum) 2 mg BUCCAL Q2H PRN PRN Reason: Nicotine Cravings Last Admin: 07/14/23 13:38 Dose: 2 mg Olanzapine (Olanzapine Odt 10 Mg Tab.Rapdis) 10 mg TRANSLINGU TID PRN PRN Reason: Psychotic agitation Last Admin: 07/13/23 12:19 Dose: 10 mg Senna/Docusate Sodium (Sennosides/Docusate Sodium Tablet) 1 tab PO BID [facility] Last Admin: 07/14/23 08:26 Dose: 1 tab Trazodone HCl (Trazodone Hcl 100 Mg Tablet) 100 mg PO BEDTIME PRN PRN Reason: insomnia Last Admin: 07/13/23 23:05 Dose: 100 mg Allergies Allergies Allergy/AdvReac Type Severity Reaction Status Date / Time haloperidol [From Haldol] AdvReac Severe dystonia Verified 07/06/23 19:43 Assessment & Plan Assessment & Plan (1) Schizoaffective disorder, bipolar type: Status: Acute Code(s): F25.0 - Schizoaffective disorder, bipolar type (2) Cannabis use disorder, mild, abuse: Status: Acute Code(s): F12.10 - Cannabis abuse, uncomplicated Plan Patient admitted on a section 12 B history of multiple psychiatric hospitalizations his agitated and history of schizoaffective disorder appears to be in psychotic agitated state. Had done well reportedly on Clozaril Depakote in the past. He is somewhat anemic question etiology patient with long history of noncompliance has failed Invega olanzapine in the past unclear if will take clozapine on any regular basis might do better with a long-acting injectable. Need additional information from family outpatient provider records available encourage therapeutic [place] compliance patient currently admitted on a section 12 B PLAN 07/05 increase clozaril 25mg po daily, 100mg po qhs. he has been out of the hospital for longer period of time with clozaril. 07/06 appears somnolent, no additional medications given but continues to have difficulty sleeping. LFTs trending down- however, not typical of him to have LFT elevation. Will add hep panel. will hold depakote for now as he appears sedated/somnolent. continue clozaril. 07/07: DC ativan as it is not a sustainable treatment in someone refusing other medications for psychosis and jazmine. pt is already on klonopin at HS. refusing clozaril, says he won't take depakote either. denies he has mental illness. zabala warning provided. signed CV, then signed 3-day notice. 07/08: refusing clozapine. DC klonopin. restart VPA. 3-day notice matures 07/12. do not give benzos, as we would like to have pt take neuroleptics and proper mood stabilizers instead and do not want to mask or partially treat his jazmine with unsustainable treatment, pending maturation of 3-day notice. 07/09: continue to encourage medication compliance. 07/10: Nursing reported pt was responding to internal stimuli and began posturing at staff and hitting RN's hand in the morning. Restraint orders were ordered from on-call MD, Dr. Radford. T/W examined patient at 0825. Pt was calm and requesting to be released from restraint chair to lay down. Pt released at 0830. Pt slept rest of morning with 1:1 staff present. 07/11: hyperverbal, paranoid delusions re treatment by staff. involuntary medication yesterday. continue current mgmt. 07/12: euphoric, dancing; then labile, irritable, threatening to lisa. informed of filing and hearing date. 07/13: euphoric, labile, irritable. agrees to trial of tegretol, to start at 100 BID. increase clozapine to 75 mg tonight. Reason for continued inpatient stay Substantial Risk for: inability to function and rapid decompensation Time Spent With Patient Time: Total time managing care of this patient today __45__ minutes.
[2023-07-14 20:05] VITALS: BP 162/98; PULSE 90; RESP 16; TEMP 36.6; O2SAT 99
[2023-07-14] MEDS: cloZAPine 25 MG TABLET 75 MG PO (21:58)
[2023-07-14 22:07] VITALS: BP 142/94; PULSE 89
[2023-07-14] MEDS: traZODone HCL 100 MG TABLET PO (23:03)
[2023-07-15] MEDS: Throat Lozenge, Medicated LOZENGE 1 LOZENGE MUCOUS MEM ×3 (04:11→21:31)
[2023-07-15] MEDS: Nicotine Polacrilex 2 MG GUM BUCCAL ×2 (04:29→20:25)
[2023-07-15] MEDS: Ibuprofen 800 MG TABLET PO ×3 (04:29→17:45)
[2023-07-15 07:00] VITALS: BMI 32.9
[2023-07-15 07:35] VITALS: BP 141/82; PULSE 92; RESP 16; TEMP 36.9; O2SAT 97
[2023-07-15] MEDS: Nicotine 21 MG PATCH.TD24 TRANSDERMA (08:39)
[2023-07-15] MEDS: Amoxicillin/Potassium Clav 875 MG TABLET PO ×2 (08:40→21:28)
[2023-07-15] MEDS: carBAMazepine ER 100 MG TAB.ER.12H PO (08:40)
--- NOTE | 2023-07-15 12:54 | HO.PSYCHPN ---
Subjective Subjective Date of Service: 07/15/23 Reason For Visit: psychosis non compliance Interim History: calm, cooperative, friendly. endorses increasing tegretol to 200 BID as of tonight. no adverse reactions to it. feels calmed by it. per staff, labile, guarded. taking meds. outburst yesterday morning, then apologized. i asked god and the devil into my body to work things out, by way of explanation of his incessant hallway dancing. Mental Status Exam Mental Status Exam Narrative: Appearance: dressed in street clothes, adequately Behavior: guarded Psychomotor: PMA of pacing the halls, dancing Speech: spontaneous, nml rate and amount Thoughts: linear, logical. no delusions or paranoia expressed. Mood: euthymic Affect: full range, normo-intense, non-labile SI: none expressed HI: none expressed AH/VH: none expressed Insight/judgment: poor x 2. Diagnostics Vital Signs (24Hr): Vital Signs - 24 hr 07/14/23 20:05 07/14/23 22:07 07/15/23 07:35 Temperature 97.8 F 98.4 F Pulse Rate 90 89 92 Respiratory Rate 16 16 Blood Pressure 162/98 H 142/94 H 141/82 H Pulse Oximetry 99 97 Oxygen Delivery Method Room Air Room Air BMI result Body Mass Index 32.9 Labs 07/06/23 07:34 07/06/23 07:34 Medications Medications Current Medications Acetaminophen (Acetaminophen 325 Mg Tablet) 650 mg PO Q6H PRN PRN Reason: Headache/Pain Mild Scale (1-3) Last Admin: 07/14/23 18:42 Dose: 650 mg Al Hydroxide/Mg Hydroxide (Magnesium Hydrox/Alum Hydrox 30 Ml Oral.Susp) 30 ml PO Q6H PRN PRN Reason: Heartburn/Nausea Amoxicillin/Clavulanate Potassium (Amoxicillin/Potassium Clav 875 Mg Tablet) 875 mg PO BID FANNIE Last Admin: 07/15/23 08:40 Dose: 875 mg Benzocaine (Throat Lozenge, Medicated Lozenge) 1 lozenge MUCOUS MEM Q1H PRN PRN Reason: Sore Throat Last Admin: 07/15/23 04:11 Dose: 1 lozenge Carbamazepine (Carbamazepine Er 200 Mg Tab.Er.12h) 200 mg PO BID FANNIE Clozapine (Clozapine 25 Mg Tablet) 75 mg PO BEDTIME FANNIE Last Admin: 07/14/23 21:58 Dose: 75 mg Ibuprofen (Ibuprofen 800 Mg Tablet) 800 mg PO Q8H PRN PRN Reason: Dental Pain Last Admin: 07/15/23 12:14 Dose: 800 mg Magnesium Hydroxide (Milk Of Magnesia 30 Ml Oral.Susp) 30 ml PO DAILY PRN PRN Reason: Constipation Nicotine (Nicotine 21 Mg Patch.Td24) 21 mg TRANSDERMA DAILY [facility] Last Admin: 07/15/23 08:39 Dose: 21 mg Nicotine Polacrilex (Nicotine Polacrilex 2 Mg Gum) 2 mg BUCCAL Q2H PRN PRN Reason: Nicotine Cravings Last Admin: 07/15/23 04:29 Dose: 2 mg Olanzapine (Olanzapine Odt 10 Mg Tab.Rapdis) 10 mg TRANSLINGU TID PRN PRN Reason: Psychotic agitation Last Admin: 07/13/23 12:19 Dose: 10 mg Senna/Docusate Sodium (Sennosides/Docusate Sodium Tablet) 1 tab PO BID [facility] Last Admin: 07/15/23 08:41 Dose: Not Given Trazodone HCl (Trazodone Hcl 100 Mg Tablet) 100 mg PO BEDTIME PRN PRN Reason: insomnia Last Admin: 07/14/23 23:03 Dose: 100 mg Allergies Allergies Allergy/AdvReac Type Severity Reaction Status Date / Time haloperidol [From Haldol] AdvReac Severe dystonia Verified 07/06/23 19:43 Assessment & Plan Assessment & Plan (1) Schizoaffective disorder, bipolar type: Status: Acute Code(s): F25.0 - Schizoaffective disorder, bipolar type (2) Cannabis use disorder, mild, abuse: Status: Acute Code(s): F12.10 - Cannabis abuse, uncomplicated Plan Patient admitted on a section 12 B history of multiple psychiatric hospitalizations his agitated and history of schizoaffective disorder appears to be in psychotic agitated state. Had done well reportedly on Clozaril Depakote in the past. He is somewhat anemic question etiology patient with long history of noncompliance has failed Invega olanzapine in the past unclear if will take clozapine on any regular basis might do better with a long-acting injectable. Need additional information from family outpatient provider records available encourage therapeutic [place] compliance patient currently admitted on a section 12 B PLAN 07/05 increase clozaril 25mg po daily, 100mg po qhs. he has been out of the hospital for longer period of time with clozaril. 07/06 appears somnolent, no additional medications given but continues to have difficulty sleeping. LFTs trending down- however, not typical of him to have LFT elevation. Will add hep panel. will hold depakote for now as he appears sedated/somnolent. continue clozaril. 07/07: DC ativan as it is not a sustainable treatment in someone refusing other medications for psychosis and jazmine. pt is already on klonopin at HS. refusing clozaril, says he won't take depakote either. denies he has mental illness. zabala warning provided. signed CV, then signed 3-day notice. 07/08: refusing clozapine. DC klonopin. restart VPA. 3-day notice matures 07/12. do not give benzos, as we would like to have pt take neuroleptics and proper mood stabilizers instead and do not want to mask or partially treat his jazmine with unsustainable treatment, pending maturation of 3-day notice. 07/09: continue to encourage medication compliance. 07/10: Nursing reported pt was responding to internal stimuli and began posturing at staff and hitting RN's hand in the morning. Restraint orders were ordered from on-call MD, Dr. Radford. T/W examined patient at 0825. Pt was calm and requesting to be released from restraint chair to lay down. Pt released at 0830. Pt slept rest of morning with 1:1 staff present. 07/11: hyperverbal, paranoid delusions re treatment by staff. involuntary medication yesterday. continue current mgmt. 07/12: euphoric, dancing; then labile, irritable, threatening to lisa. informed of filing and hearing date. 07/13: euphoric, labile, irritable. agrees to trial of tegretol, to start at 100 BID. increase clozapine to 75 mg tonight. 07/14: more calm. increase tegretol to 200 BID. continue with clozapine 75 QHS. Reason for continued inpatient stay Substantial Risk for: harm to self, harm to others, inability to function and rapid decompensation Time Spent With Patient Time: Total time managing care of this patient today _25___ minutes.
[2023-07-15] MEDS: Acetaminophen 325 MG TABLET 650 MG PO (15:35)
[2023-07-15 20:30] VITALS: BP 142/100; PULSE 114; RESP 18; TEMP 36.4; O2SAT 96
[2023-07-15] MEDS: carBAMazepine ER 200 MG TAB.ER.12H PO (21:28)
[2023-07-15] MEDS: cloZAPine 25 MG TABLET 75 MG PO (21:29)
[2023-07-16] MEDS: traZODone HCL 100 MG TABLET PO ×2 (00:15→23:37)
[2023-07-16] MEDS: Nicotine Polacrilex 2 MG GUM BUCCAL (00:15)
[2023-07-16] MEDS: Ibuprofen 800 MG TABLET PO ×3 (03:23→21:00)
[2023-07-16] MEDS: Throat Lozenge, Medicated LOZENGE 1 LOZENGE MUCOUS MEM ×3 (03:24→14:07)
[2023-07-16 08:00] VITALS: BP 139/92; PULSE 102; RESP 18; TEMP 36.4; O2SAT 97
[2023-07-16] MEDS: carBAMazepine ER 200 MG TAB.ER.12H PO ×2 (08:26→22:35)
[2023-07-16] MEDS: Amoxicillin/Potassium Clav 875 MG TABLET PO ×2 (08:26→22:36)
[2023-07-16] MEDS: Acetaminophen 325 MG TABLET 650 MG PO ×2 (09:01→17:02)
[2023-07-16] MEDS: Nicotine 21 MG PATCH.TD24 TRANSDERMA (10:46)
--- NOTE | 2023-07-16 13:10 | HO.PSYCHPN ---
Subjective Subjective Date of Service: 07/16/23 Reason For Visit: psychosis non compliance Interim History: calm, cooperative. seen with BALTAZAR Martinez. upset at female peer provoking him; he believes she has been trying to seduce him and is just upset he has not succumbed to her womanly charms. encouraged to continue to remain in control of his behavior and reassured of staff presence and role to maintain safety. pt reports he is doing well on current regimen, agreement made to continue current regimen through the weekend. per staff, labile, guarded. + meds. + RIS. religiously pre-occupied. expansive. slept about 3.5 hours. Mental Status Exam Mental Status Exam Narrative: Appearance: dressed in street clothes, adequately Behavior: guarded Psychomotor: PMA of pacing the halls, dancing Speech: spontaneous, nml rate and amount Thoughts: linear, logical. perhaps some grandiosity. Mood: variable Affect: full range, normo-intense, min-labile SI: none expressed HI: none expressed AH/VH: none expressed Insight/judgment: improving x 2. Diagnostics Vital Signs (24Hr): Vital Signs - 24 hr 07/15/23 20:30 07/16/23 08:00 Temperature 97.6 F 97.5 F Pulse Rate 114 H 102 H Respiratory Rate 18 18 Blood Pressure 142/100 H 139/92 H Pulse Oximetry 96 97 Oxygen Delivery Method Room Air Room Air BMI result Body Mass Index 32.9 Labs 07/06/23 07:34 07/06/23 07:34 Medications Medications Current Medications Acetaminophen (Acetaminophen 325 Mg Tablet) 650 mg PO Q6H PRN PRN Reason: Headache/Pain Mild Scale (1-3) Last Admin: 07/16/23 09:01 Dose: 650 mg Al Hydroxide/Mg Hydroxide (Magnesium Hydrox/Alum Hydrox 30 Ml Oral.Susp) 30 ml PO Q6H PRN PRN Reason: Heartburn/Nausea Amoxicillin/Clavulanate Potassium (Amoxicillin/Potassium Clav 875 Mg Tablet) 875 mg PO BID FANNIE Last Admin: 07/16/23 08:26 Dose: 875 mg Benzocaine (Throat Lozenge, Medicated Lozenge) 1 lozenge MUCOUS MEM Q1H PRN PRN Reason: Sore Throat Last Admin: 07/16/23 08:27 Dose: 1 lozenge Benzocaine (Benzocaine 20 % Oral Gel 9 Gm Tube) 1 appl MUCOUS MEM QID PRN; Protocol PRN Reason: dental pain Carbamazepine (Carbamazepine Er 200 Mg Tab.Er.12h) 200 mg PO BID [facility] Last Admin: 07/16/23 08:26 Dose: 200 mg Clozapine (Clozapine 25 Mg Tablet) 75 mg PO BEDTIME [facility] Last Admin: 07/15/23 21:29 Dose: 75 mg Ibuprofen (Ibuprofen 800 Mg Tablet) 800 mg PO Q8H PRN PRN Reason: Dental Pain Last Admin: 07/16/23 12:38 Dose: 800 mg Magnesium Hydroxide (Milk Of Magnesia 30 Ml Oral.Susp) 30 ml PO DAILY PRN PRN Reason: Constipation Melatonin (Melatonin 3 Mg Tablet) 9 mg PO BEDTIME [facility] Nicotine (Nicotine 21 Mg Patch.Td24) 21 mg TRANSDERMA DAILY [facility] Last Admin: 07/16/23 10:46 Dose: 21 mg Nicotine Polacrilex (Nicotine Polacrilex Lozenge 4 Mg Lozenge) 4 mg BUCCAL Q2H PRN PRN Reason: Nicotine Cravings Olanzapine (Olanzapine Odt 10 Mg Tab.Rapdis) 10 mg TRANSLINGU TID PRN PRN Reason: Psychotic agitation Last Admin: 07/13/23 12:19 Dose: 10 mg Senna/Docusate Sodium (Sennosides/Docusate Sodium Tablet) 1 tab PO BID [facility] Last Admin: 07/16/23 09:21 Dose: Not Given Trazodone HCl (Trazodone Hcl 100 Mg Tablet) 100 mg PO BEDTIME PRN PRN Reason: insomnia Last Admin: 07/16/23 00:15 Dose: 100 mg Allergies Allergies Allergy/AdvReac Type Severity Reaction Status Date / Time haloperidol [From Haldol] AdvReac Severe dystonia Verified 07/06/23 19:43 Assessment & Plan Assessment & Plan (1) Schizoaffective disorder, bipolar type: Status: Acute Code(s): F25.0 - Schizoaffective disorder, bipolar type (2) Cannabis use disorder, mild, abuse: Status: Acute Code(s): F12.10 - Cannabis abuse, uncomplicated Plan Patient admitted on a section 12 B history of multiple psychiatric hospitalizations his agitated and history of schizoaffective disorder appears to be in psychotic agitated state. Had done well reportedly on Clozaril Depakote in the past. He is somewhat anemic question etiology patient with long history of noncompliance has failed Invega olanzapine in the past unclear if will take clozapine on any regular basis might do better with a long-acting injectable. Need additional information from family outpatient provider records available encourage therapeutic [place] compliance patient currently admitted on a section 12 B PLAN 07/05 increase clozaril 25mg po daily, 100mg po qhs. he has been out of the hospital for longer period of time with clozaril. 07/06 appears somnolent, no additional medications given but continues to have difficulty sleeping. LFTs trending down- however, not typical of him to have LFT elevation. Will add hep panel. will hold depakote for now as he appears sedated/somnolent. continue clozaril. 07/07: DC ativan as it is not a sustainable treatment in someone refusing other medications for psychosis and jazmine. pt is already on klonopin at HS. refusing clozaril, says he won't take depakote either. denies he has mental illness. zabala warning provided. signed CV, then signed 3-day notice. 07/08: refusing clozapine. DC klonopin. restart VPA. 3-day notice matures 07/12. do not give benzos, as we would like to have pt take neuroleptics and proper mood stabilizers instead and do not want to mask or partially treat his jazmine with unsustainable treatment, pending maturation of 3-day notice. 07/09: continue to encourage medication compliance. 07/10: Nursing reported pt was responding to internal stimuli and began posturing at staff and hitting RN's hand in the morning. Restraint orders were ordered from on-call , Dr. Radford. T/W examined patient at 0825. Pt was calm and requesting to be released from restraint chair to lay down. Pt released at 0830. Pt slept rest of morning with 1:1 staff present. 07/11: hyperverbal, paranoid delusions re treatment by staff. involuntary medication yesterday. continue current mgmt. 07/12: euphoric, dancing; then labile, irritable, threatening to lisa. informed of filing and hearing date. 07/13: euphoric, labile, irritable. agrees to trial of tegretol, to start at 100 BID. increase clozapine to 75 mg tonight. 07/14: more calm. increase tegretol to 200 BID. continue with clozapine 75 QHS. 07/15: feels improved on current regimen. some lability and grandiosity. continue current regimen, re-evaluate on wednesday. Reason for continued inpatient stay Substantial Risk for: inability to function and rapid decompensation Time Spent With Patient Time: Total time managing care of this patient today __35__ minutes.
[2023-07-16] MEDS: Nicotine Polacrilex Lozenge 4 MG LOZENGE BUCCAL ×3 (14:59→22:36)
--- NOTE | 2023-07-16 15:38 | PC.ADMIT ---
Darshan is a 29 y/o male admitted to [facility] at 1300 from the Pod on a CV for treatment of unspecified depressive d/o, opioid d/o and cocaine use d/o. Pt is currently living with grandparents after split from ex-girlfriend. Pt participated in admission and was pleasant. Per crisis evaluation pt presented to the ED secondary to a reported intentional overdose on heroin. Pt had to be narcan?d and was found at home by his mother unresponsive and with ?blue lips?. Pt was overheard by hospital staff in the ER telling his mother ?You should not have narcan?d me, you should have just let me go.? Pt reported to TW that ?I did not actively go out find drugs with the want to kill myself. I was feeling down and just was offered drugs and in a time of weakness and feeling like shit I decided to use. I wasn?t looking to overdose and end up here. I haven?t used in a really long time so I am not proud of this.? Pt reports feeling depressed and stressed over a recent breakup with his girlfriend. Pt currently denies SI or HI at this time. Pt denies AH or VH, no overt psychosis or expressed delusion reported or observed at this time. Thought process is linear, speech prosodic. Pt reports poor sleep and is used to using a weighted blanket. Pt reported a 15 lb weight loss recently, but unsure of when it occurred. Pt reports having asthma but has not had any issues for years. Pt tox screen was positive for opiates, cocaine, fentanyl, and marijuana. No withdrawal S&S. Pt reports past childhood trauma.? Pt was placed on 15 check for safety. Pt has an allergy to aspirin. 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 Visible skin intact, some raised red, ingrown hairs/pimples on abdomen and back. Pt WBC was 17.4. High glucose and protein in urine.
[2023-07-16] MEDS: Benzocaine 20 % Oral Gel 9 GM TUBE 1 APPL MUCOUS MEM (17:02)
[2023-07-16 19:56] VITALS: BP 158/78; PULSE 112; RESP 18; TEMP 36.4; O2SAT 99
[2023-07-16] MEDS: Melatonin 3 MG TABLET 9 MG PO (22:34)
[2023-07-16] MEDS: Sennosides/Docusate Sodium TABLET 1 TAB PO (22:36)
[2023-07-16] MEDS: cloZAPine 25 MG TABLET 75 MG PO (22:36)
[2023-07-17] MEDS: Nicotine Polacrilex Lozenge 4 MG LOZENGE BUCCAL ×5 (03:43→22:49)
[2023-07-17] MEDS: Ibuprofen 800 MG TABLET PO ×2 (07:05→15:27)
[2023-07-17 07:25] VITALS: BP 167/79; PULSE 111; RESP 14; TEMP 36.4; O2SAT 98
[2023-07-17] MEDS: Amoxicillin/Potassium Clav 875 MG TABLET PO ×2 (08:17→21:48)
[2023-07-17] MEDS: carBAMazepine ER 200 MG TAB.ER.12H PO ×2 (08:17→21:48)
[2023-07-17] MEDS: Throat Lozenge, Medicated LOZENGE 1 LOZENGE MUCOUS MEM (08:18)
--- NOTE | 2023-07-17 12:20 | HO.PSYCHPN ---
Subjective Subjective Date of Service: 07/17/23 Reason For Visit: psychosis non compliance Subjective Notes: Section 7 Interim History: Patient was seen and discussed in rounds today. Records and plans were reviewed. He has been on constant obs. He is medication compliant. Some periods of irritability reported. Some yelling reported. Denies any depression or anxiety. Slept 4 hours. No complaints or changes. Review of Systems Review of Systems Yes all other systems are reviewed and are negative Diagnostics Vital Signs (24Hr): Vital Signs - 24 hr 07/16/23 19:56 07/17/23 07:25 Temperature 97.6 F 97.6 F Pulse Rate 112 H 111 H Respiratory Rate 18 14 Blood Pressure 158/78 H 167/79 H Pulse Oximetry 99 98 Oxygen Delivery Method Room Air Room Air BMI result Body Mass Index 32.9 Labs 07/06/23 07:34 07/06/23 07:34 Medications Medications Current Medications Acetaminophen (Acetaminophen 325 Mg Tablet) 650 mg PO Q6H PRN PRN Reason: Headache/Pain Mild Scale (1-3) Last Admin: 07/16/23 17:02 Dose: 650 mg Al Hydroxide/Mg Hydroxide (Magnesium Hydrox/Alum Hydrox 30 Ml Oral.Susp) 30 ml PO Q6H PRN PRN Reason: Heartburn/Nausea Amoxicillin/Clavulanate Potassium (Amoxicillin/Potassium Clav 875 Mg Tablet) 875 mg PO BID [facility] [place] Last Admin: 07/17/23 08:17 Dose: 875 mg Benzocaine (Throat Lozenge, Medicated Lozenge) 1 lozenge MUCOUS MEM Q1H PRN PRN Reason: Sore Throat Last Admin: 07/17/23 08:18 Dose: 1 lozenge Benzocaine (Benzocaine 20 % Oral Gel 9 Gm Tube) 1 appl MUCOUS MEM QID PRN; Protocol PRN Reason: dental pain Last Admin: 07/16/23 17:02 Dose: 1 appl Carbamazepine (Carbamazepine Er 200 Mg Tab.Er.12h) 200 mg PO BID [facility] [place] Last Admin: 07/17/23 08:17 Dose: 200 mg Clozapine (Clozapine 25 Mg Tablet) 75 mg PO BEDTIME [facility] [place] Last Admin: 07/16/23 22:36 Dose: 75 mg Ibuprofen (Ibuprofen 800 Mg Tablet) 800 mg PO Q8H PRN PRN Reason: Dental Pain Last Admin: 07/17/23 07:05 Dose: 800 mg Magnesium Hydroxide (Milk Of Magnesia 30 Ml Oral.Susp) 30 ml PO DAILY PRN PRN Reason: Constipation Melatonin (Melatonin 3 Mg Tablet) 9 mg PO BEDTIME [facility] [place] Last Admin: 07/16/23 22:34 Dose: 9 mg Nicotine (Nicotine 21 Mg Patch.Td24) 21 mg TRANSDERMA DAILY [facility] [place] Last Admin: 07/17/23 10:31 Dose: Not Given Nicotine Polacrilex (Nicotine Polacrilex Lozenge 4 Mg Lozenge) 4 mg BUCCAL Q2H PRN PRN Reason: Nicotine Cravings Last Admin: 07/17/23 07:02 Dose: 4 mg Olanzapine (Olanzapine Odt 10 Mg Tab.Rapdis) 10 mg TRANSLINGU TID PRN PRN Reason: Psychotic agitation Last Admin: 07/13/23 12:19 Dose: 10 mg Senna/Docusate Sodium (Sennosides/Docusate Sodium Tablet) 1 tab PO BID [facility] [place] Last Admin: 07/17/23 09:07 Dose: Not Given Trazodone HCl (Trazodone Hcl 100 Mg Tablet) 100 mg PO BEDTIME PRN PRN Reason: insomnia Last Admin: 07/16/23 23:37 Dose: 100 mg Allergies Allergies Allergy/AdvReac Type Severity Reaction Status Date / Time haloperidol [From Haldol] AdvReac Severe dystonia Verified 07/06/23 19:43 Assessment & Plan Assessment & Plan (1) Schizoaffective disorder, bipolar type: Status: Acute Code(s): F25.0 - Schizoaffective disorder, bipolar type (2) Cannabis use disorder, mild, abuse: Status: Acute Code(s): F12.10 - Cannabis abuse, uncomplicated Plan Patient admitted on a section 12 B history of multiple psychiatric hospitalizations his agitated and history of schizoaffective disorder appears to be in psychotic agitated state. Had done well reportedly on Clozaril Depakote in the past. He is somewhat anemic question etiology patient with long history of noncompliance has failed Invega olanzapine in the past unclear if will take clozapine on any regular basis might do better with a long-acting injectable. Need additional information from family outpatient provider records available encourage therapeutic [place] compliance patient currently admitted on a section 12 B PLAN 07/05 increase clozaril 25mg po daily, 100mg po qhs. he has been out of the hospital for longer period of time with clozaril. 07/06 appears somnolent, no additional medications given but continues to have difficulty sleeping. LFTs trending down- however, not typical of him to have LFT elevation. Will add hep panel. will hold depakote for now as he appears sedated/somnolent. continue clozaril. 07/07: DC ativan as it is not a sustainable treatment in someone refusing other medications for psychosis and jazmine. pt is already on klonopin at HS. refusing clozaril, says he won't take depakote either. denies he has mental illness. zabala warning provided. signed CV, then signed 3-day notice. 07/08: refusing clozapine. DC klonopin. restart VPA. 3-day notice matures 07/12. do not give benzos, as we would like to have pt take neuroleptics and proper mood stabilizers instead and do not want to mask or partially treat his jazmine with unsustainable treatment, pending maturation of 3-day notice. 07/09: continue to encourage medication compliance. 07/10: Nursing reported pt was responding to internal stimuli and began posturing at staff and hitting RN's hand in the morning. Restraint orders were ordered from on-call MD, Dr. Radford. T/W examined patient at 0825. Pt was calm and requesting to be released from restraint chair to lay down. Pt released at 0830. Pt slept rest of morning with 1:1 staff present. 07/11: hyperverbal, paranoid delusions re treatment by staff. involuntary medication yesterday. continue current mgmt. 07/12: euphoric, dancing; then labile, irritable, threatening to lisa. informed of filing and hearing date. 07/13: euphoric, labile, irritable. agrees to trial of tegretol, to start at 100 BID. increase clozapine to 75 mg tonight. 07/14: more calm. increase tegretol to 200 BID. continue with clozapine 75 QHS. 07/15: feels improved on current regimen. some lability and grandiosity. continue current regimen, re-evaluate on wednesday. 07/16: Continue current treatment and plan Reason for continued inpatient stay Substantial Risk for: med/psych decompensation Time Spent With Patient Time: Total time managing care of this patient today ____ minutes.
[2023-07-17] MEDS: Nicotine 21 MG PATCH.TD24 TRANSDERMA (15:30)
[2023-07-17] MEDS: Acetaminophen 325 MG TABLET 650 MG PO (18:18)
[2023-07-17] MEDS: Benzocaine 20 % Oral Gel 9 GM TUBE 1 APPL MUCOUS MEM (18:47)
[2023-07-17] MEDS: cloZAPine 25 MG TABLET 75 MG PO (21:48)
[2023-07-17] MEDS: Melatonin 3 MG TABLET 9 MG PO (22:49)
[2023-07-17] MEDS: traZODone HCL 100 MG TABLET PO (22:49)
[2023-07-18] MEDS: Throat Lozenge, Medicated LOZENGE 1 LOZENGE MUCOUS MEM ×3 (01:03→22:08)
--- NOTE | 2023-07-18 01:04 | PC.NURSE ---
Throat lozenge given for minor sore throat pain
[2023-07-18] MEDS: Nicotine Polacrilex Lozenge 4 MG LOZENGE BUCCAL ×5 (04:49→20:46)
[2023-07-18] MEDS: Ibuprofen 800 MG TABLET PO ×3 (04:49→22:11)
[2023-07-18 07:35] VITALS: BP 137/79; PULSE 104; RESP 16; TEMP 35.8; O2SAT 97
[2023-07-18] MEDS: Acetaminophen 325 MG TABLET 650 MG PO ×2 (08:12→15:17)
[2023-07-18] MEDS: Benzocaine 20 % Oral Gel 9 GM TUBE 1 APPL MUCOUS MEM ×2 (08:12→15:44)
--- NOTE | 2023-07-18 08:20 | HO.PSYCHPN ---
Subjective Subjective Date of Service: 07/18/23 Reason For Visit: psychosis non compliance Subjective Notes: Section 7 Interim History: Patient was seen and discussed in rounds today. Records and plans were reviewed. He has been doing well with no behavioral issues. He is social and out and about. Slept 5 hours yesterday he had a tooth ache which is better today with no complaints. Denies any side effects. No SI. No changes were made today Review of Systems Review of Systems Yes all other systems are reviewed and are negative Mental Status Exam Mental Status Exam Narrative: In today's visit he is alert, pleasant and interactive. Normal speech. Good eye contact. Appropriate and varied affect. No acute signs of psychosis. No overt delusions. No SI. Cognitively intact. Judgment is intact Diagnostics Vital Signs (24Hr): Vital Signs - 24 hr 07/18/23 07:35 Temperature 96.4 F L Pulse Rate 104 H Respiratory Rate 16 Blood Pressure 137/79 Pulse Oximetry 97 Oxygen Delivery Method Room Air BMI result Body Mass Index 32.9 Labs 07/06/23 07:34 07/06/23 07:34 Medications Medications Current Medications Acetaminophen (Acetaminophen 325 Mg Tablet) 650 mg PO Q6H PRN PRN Reason: Headache/Pain Mild Scale (1-3) Last Admin: 07/18/23 08:12 Dose: 650 mg Al Hydroxide/Mg Hydroxide (Magnesium Hydrox/Alum Hydrox 30 Ml Oral.Susp) 30 ml PO Q6H PRN PRN Reason: Heartburn/Nausea Amoxicillin/Clavulanate Potassium (Amoxicillin/Potassium Clav 875 Mg Tablet) 875 mg PO BID [facility] Last Admin: 07/17/23 21:48 Dose: 875 mg Benzocaine (Throat Lozenge, Medicated Lozenge) 1 lozenge MUCOUS MEM Q1H PRN PRN Reason: Sore Throat Last Admin: 07/18/23 06:47 Dose: 1 lozenge Benzocaine (Benzocaine 20 % Oral Gel 9 Gm Tube) 1 appl MUCOUS MEM QID PRN; Protocol PRN Reason: dental pain Last Admin: 07/18/23 08:12 Dose: 1 appl Carbamazepine (Carbamazepine Er 200 Mg Tab.Er.12h) 200 mg PO BID [facility] Last Admin: 07/17/23 21:48 Dose: 200 mg Clozapine (Clozapine 25 Mg Tablet) 75 mg PO BEDTIME [facility] Last Admin: 07/17/23 21:48 Dose: 75 mg Ibuprofen (Ibuprofen 800 Mg Tablet) 800 mg PO Q8H PRN PRN Reason: Dental Pain Last Admin: 07/18/23 04:49 Dose: 800 mg Magnesium Hydroxide (Milk Of Magnesia 30 Ml Oral.Susp) 30 ml PO DAILY PRN PRN Reason: Constipation Melatonin (Melatonin 3 Mg Tablet) 9 mg PO BEDTIME [facility] Last Admin: 07/17/23 22:49 Dose: 9 mg Nicotine (Nicotine 21 Mg Patch.Td24) 21 mg TRANSDERMA DAILY [facility] Last Admin: 07/17/23 15:30 Dose: 21 mg Nicotine Polacrilex (Nicotine Polacrilex Lozenge 4 Mg Lozenge) 4 mg BUCCAL Q2H PRN PRN Reason: Nicotine Cravings Last Admin: 07/18/23 04:49 Dose: 4 mg Olanzapine (Olanzapine Odt 10 Mg Tab.Rapdis) 10 mg TRANSLINGU TID PRN PRN Reason: Psychotic agitation Last Admin: 07/13/23 12:19 Dose: 10 mg Senna/Docusate Sodium (Sennosides/Docusate Sodium Tablet) 1 tab PO BID [facility] Last Admin: 07/17/23 22:51 Dose: Not Given Trazodone HCl (Trazodone Hcl 100 Mg Tablet) 100 mg PO BEDTIME PRN PRN Reason: insomnia Last Admin: 07/17/23 22:49 Dose: 100 mg Allergies Allergies Allergy/AdvReac Type Severity Reaction Status Date / Time haloperidol [From Haldol] AdvReac Severe dystonia Verified 07/06/23 19:43 Assessment & Plan Assessment & Plan (1) Schizoaffective disorder, bipolar type: Status: Acute Code(s): F25.0 - Schizoaffective disorder, bipolar type (2) Cannabis use disorder, mild, abuse: Status: Acute Code(s): F12.10 - Cannabis abuse, uncomplicated Plan Patient admitted on a section 12 B history of multiple psychiatric hospitalizations his agitated and history of schizoaffective disorder appears to be in psychotic agitated state. Had done well reportedly on Clozaril Depakote in the past. He is somewhat anemic question etiology patient with long history of noncompliance has failed Invega olanzapine in the past unclear if will take clozapine on any regular basis might do better with a long-acting injectable. Need additional information from family outpatient provider records available encourage therapeutic [place] compliance patient currently admitted on a section 12 B PLAN 07/05 increase clozaril 25mg po daily, 100mg po qhs. he has been out of the hospital for longer period of time with clozaril. 07/06 appears somnolent, no additional medications given but continues to have difficulty sleeping. LFTs trending down- however, not typical of him to have LFT elevation. Will add hep panel. will hold depakote for now as he appears sedated/somnolent. continue clozaril. 07/07: DC ativan as it is not a sustainable treatment in someone refusing other medications for psychosis and jazmine. pt is already on klonopin at HS. refusing clozaril, says he won't take depakote either. denies he has mental illness. zabala warning provided. signed CV, then signed 3-day notice. 07/08: refusing clozapine. DC klonopin. restart VPA. 3-day notice matures 07/12. do not give benzos, as we would like to have pt take neuroleptics and proper mood stabilizers instead and do not want to mask or partially treat his jazmine with unsustainable treatment, pending maturation of 3-day notice. 07/09: continue to encourage medication compliance. 07/10: Nursing reported pt was responding to internal stimuli and began posturing at staff and hitting RN's hand in the morning. Restraint orders were ordered from on-call MD, Dr. Radford. T/W examined patient at 0825. Pt was calm and requesting to be released from restraint chair to lay down. Pt released at 0830. Pt slept rest of morning with 1:1 staff present. 07/11: hyperverbal, paranoid delusions re treatment by staff. involuntary medication yesterday. continue current mgmt. 07/12: euphoric, dancing; then labile, irritable, threatening to lisa. informed of filing and hearing date. 07/13: euphoric, labile, irritable. agrees to trial of tegretol, to start at 100 BID. increase clozapine to 75 mg tonight. 07/14: more calm. increase tegretol to 200 BID. continue with clozapine 75 QHS. 07/15: feels improved on current regimen. some lability and grandiosity. continue current regimen, re-evaluate on wednesday. 07/16: Continue current treatment and plan 07/17: Continue current regimen and plans Reason for continued inpatient stay Substantial Risk for: rapid decompensation Time Spent With Patient Time: Total time managing care of this patient today ____ minutes.
[2023-07-18] MEDS: carBAMazepine ER 200 MG TAB.ER.12H PO ×2 (08:28→22:08)
[2023-07-18] MEDS: Amoxicillin/Potassium Clav 875 MG TABLET PO ×2 (08:28→22:08)
[2023-07-18] MEDS: Nicotine 21 MG PATCH.TD24 TRANSDERMA (12:33)
[2023-07-18 20:15] VITALS: BP 141/88; PULSE 101; RESP 18; TEMP 36.4; O2SAT 97
[2023-07-18] MEDS: Melatonin 3 MG TABLET 9 MG PO (22:08)
[2023-07-18] MEDS: cloZAPine 25 MG TABLET 75 MG PO (22:08)
[2023-07-18] MEDS: traZODone HCL 100 MG TABLET PO (22:58)
[2023-07-19] MEDS: Throat Lozenge, Medicated LOZENGE 1 LOZENGE MUCOUS MEM ×3 (05:58→14:23)
[2023-07-19] MEDS: Nicotine Polacrilex Lozenge 4 MG LOZENGE BUCCAL ×4 (06:22→22:01)
[2023-07-19 07:42] VITALS: BP 126/77; PULSE 101; RESP 16; TEMP 36.8; O2SAT 98
[2023-07-19] MEDS: carBAMazepine ER 200 MG TAB.ER.12H PO ×2 (08:23→22:01)
[2023-07-19] MEDS: Amoxicillin/Potassium Clav 875 MG TABLET PO ×2 (08:23→22:01)
[2023-07-19] MEDS: Ibuprofen 800 MG TABLET PO ×2 (08:31→19:22)
[2023-07-19] MEDS: Benzocaine 20 % Oral Gel 9 GM TUBE 1 APPL MUCOUS MEM ×2 (08:32→19:22)
[2023-07-19] MEDS: Acetaminophen 325 MG TABLET 650 MG PO ×2 (11:54→23:40)
--- NOTE | 2023-07-19 14:38 | P.PNPSI_ITS ---
Subjective Subjective Date of Service: 07/19/23 Reason For Visit: psychosis non compliance Interim History: calm, cooperative. clearly upset to hear he will not be discharging today. able to remain composed, no outbursts. informed if he remains in behavioral control overnight and labs are reassuring that he will be able to discharge tomorrow prior to court. agreeable to increase clozaril to 100 mg tonight. per staff, attending groups. denies depression. endorses anxiety. less labile, still pacing. dental pain not improving. 1 outburst over the weekend in response to provocation by peer. reported AH last NOC. Mental Status Exam Mental Status Exam Narrative: Appearance: dressed in street clothes, adequately Behavior: guarded Psychomotor: PMA of pacing the halls. no dancing. Speech: spontaneous, nml rate and amount Thoughts: linear, logical. Mood: variable Affect: full range, normo-intense, min-labile SI: none expressed HI: none expressed AH/VH: none expressed Insight/judgment: improving x 2. Diagnostics Vital Signs (24Hr): Vital Signs - 24 hr 07/18/23 20:15 07/19/23 07:42 Temperature 97.5 F 98.2 F Pulse Rate 101 H 101 H Respiratory Rate 18 16 Blood Pressure 141/88 H 126/77 Pulse Oximetry 97 98 Oxygen Delivery Method Room Air Room Air BMI result Body Mass Index 32.9 Labs 07/06/23 07:34 07/06/23 07:34 Medications Medications Current Medications Acetaminophen (Acetaminophen 325 Mg Tablet) 650 mg PO Q6H PRN PRN Reason: Headache/Pain Mild Scale (1-3) Last Admin: 07/19/23 11:54 Dose: 650 mg Al Hydroxide/Mg Hydroxide (Magnesium Hydrox/Alum Hydrox 30 Ml Oral.Susp) 30 ml PO Q6H PRN PRN Reason: Heartburn/Nausea Amoxicillin/Clavulanate Potassium (Amoxicillin/Potassium Clav 875 Mg Tablet) 875 mg PO BID [facility] Last Admin: 07/19/23 08:23 Dose: 875 mg Benzocaine (Throat Lozenge, Medicated Lozenge) 1 lozenge MUCOUS MEM Q1H PRN PRN Reason: Sore Throat Last Admin: 07/19/23 14:23 Dose: 1 lozenge Benzocaine (Benzocaine 20 % Oral Gel 9 Gm Tube) 1 appl MUCOUS MEM QID PRN; Protocol PRN Reason: dental pain Last Admin: 07/19/23 08:32 Dose: 1 appl Carbamazepine (Carbamazepine Er 200 Mg Tab.Er.12h) 200 mg PO BID [facility] Last Admin: 07/19/23 08:23 Dose: 200 mg Clozapine (Clozapine 100 Mg Tablet) 100 mg PO BEDTIME [facility] Ibuprofen (Ibuprofen 800 Mg Tablet) 800 mg PO Q8H PRN PRN Reason: Dental Pain Last Admin: 07/19/23 08:31 Dose: 800 mg Magnesium Hydroxide (Milk Of Magnesia 30 Ml Oral.Susp) 30 ml PO DAILY PRN PRN Reason: Constipation Melatonin (Melatonin 3 Mg Tablet) 9 mg PO BEDTIME [facility] Last Admin: 07/18/23 22:08 Dose: 9 mg Nicotine (Nicotine 21 Mg Patch.Td24) 21 mg TRANSDERMA DAILY [facility] Last Admin: 07/19/23 08:35 Dose: Not Given Nicotine Polacrilex (Nicotine Polacrilex Lozenge 4 Mg Lozenge) 4 mg BUCCAL Q2H PRN PRN Reason: Nicotine Cravings Last Admin: 07/19/23 10:32 Dose: 4 mg Olanzapine (Olanzapine Odt 10 Mg Tab.Rapdis) 10 mg TRANSLINGU TID PRN PRN Reason: Psychotic agitation Last Admin: 07/13/23 12:19 Dose: 10 mg Senna/Docusate Sodium (Sennosides/Docusate Sodium Tablet) 1 tab PO DAILY PRN PRN Reason: constipation Trazodone HCl (Trazodone Hcl 100 Mg Tablet) 100 mg PO BEDTIME PRN PRN Reason: insomnia Last Admin: 07/18/23 22:58 Dose: 100 mg Allergies Allergies Allergy/AdvReac Type Severity Reaction Status Date / Time haloperidol [From Haldol] AdvReac Severe dystonia Verified 07/06/23 19:43 Assessment & Plan Assessment & Plan (1) Schizoaffective disorder, bipolar type: Status: Acute Code(s): F25.0 - Schizoaffective disorder, bipolar type (2) Cannabis use disorder, mild, abuse: Status: Acute Code(s): F12.10 - Cannabis abuse, uncomplicated Plan Patient admitted on a section 12 B history of multiple psychiatric hospitalizations his agitated and history of schizoaffective disorder appears to be in psychotic agitated state. Had done well reportedly on Clozaril Depakote in the past. He is somewhat anemic question etiology patient with long history of noncompliance has failed Invega olanzapine in the past unclear if will take clozapine on any regular basis might do better with a long-acting injectable. Need additional information from family outpatient provider records available encourage therapeutic [place] compliance patient currently admitted on a section 12 B PLAN 07/05 increase clozaril 25mg po daily, 100mg po qhs. he has been out of the hospital for longer period of time with clozaril. 07/06 appears somnolent, no additional medications given but continues to have difficulty sleeping. LFTs trending down- however, not typical of him to have LFT elevation. Will add hep panel. will hold depakote for now as he appears sedated/somnolent. continue clozaril. 07/07: DC ativan as it is not a sustainable treatment in someone refusing other medications for psychosis and jazmine. pt is already on klonopin at HS. refusing clozaril, says he won't take depakote either. denies he has mental illness. zabala warning provided. signed CV, then signed 3-day notice. 07/08: refusing clozapine. DC klonopin. restart VPA. 3-day notice matures 07/12. do not give benzos, as we would like to have pt take neuroleptics and proper mood stabilizers instead and do not want to mask or partially treat his jazmine with unsustainable treatment, pending maturation of 3-day notice. 07/09: continue to encourage medication compliance. 07/10: Nursing reported pt was responding to internal stimuli and began posturing at staff and hitting RN's hand in the morning. Restraint orders were ordered from on-call , Dr. Radford. T/W examined patient at 0825. Pt was calm and requesting to be released from restraint chair to lay down. Pt released at 0830. Pt slept rest of morning with 1:1 staff present. 07/11: hyperverbal, paranoid delusions re treatment by staff. involuntary medication yesterday. continue current mgmt. 07/12: euphoric, dancing; then labile, irritable, threatening to lisa. informed of filing and hearing date. 07/13: euphoric, labile, irritable. agrees to trial of tegretol, to start at 100 BID. increase clozapine to 75 mg tonight. 07/14: more calm. increase tegretol to 200 BID. continue with clozapine 75 QHS. 07/15: feels improved on current regimen. some lability and grandiosity. continue current regimen, re-evaluate on wednesday. 07/16: Continue current treatment and plan 07/17: Continue current regimen and plans 07/18: increase clozaril to 100 mg QHS. check labs in the a.m. if all is stable and reassuring, discharge prior to court tomorrow. Reason for continued inpatient stay Substantial Risk for: rapid decompensation Time Spent With Patient Time: Total time managing care of this patient today __35__ minutes.
[2023-07-19] MEDS: Nicotine 21 MG PATCH.TD24 TRANSDERMA (15:07)
[2023-07-19 19:25] VITALS: BP 148/94; PULSE 112; RESP 18; TEMP 36.4; O2SAT 97
[2023-07-19] MEDS: Melatonin 3 MG TABLET 9 MG PO (22:01)
[2023-07-19] MEDS: cloZAPine 100 MG TABLET PO (22:02)
[2023-07-19] MEDS: traZODone HCL 100 MG TABLET PO (23:40)
[2023-07-20] MEDS: Nicotine Polacrilex Lozenge 4 MG LOZENGE BUCCAL (03:54)
[2023-07-20] MEDS: Ibuprofen 800 MG TABLET PO (05:25)
[2023-07-20] MEDS: Throat Lozenge, Medicated LOZENGE 1 LOZENGE MUCOUS MEM (07:03)
[2023-07-20 07:40] VITALS: BP 131/81; PULSE 108; RESP 16; TEMP 36.9; O2SAT 96
[2023-07-20 08:14] LABS: MANUAL DIFF FLAG NO
[2023-07-20 08:15] LABS: Basophils Absolute Auto 0.1 X10*3/uL (0.0-0.2); Basophils Percent Auto 0.4 % (0-2); Eosinophils Absolute Auto 0.2 X10*3/uL (0.0-0.4); Eosinophils Percent Auto 1.1 % (0-4); Hematocrit 39.8 % (42.0-52.0); Hemoglobin 13.9 g/dl (14.0-18.0); Imm Gran Abs Auto 0.16 X10*3/uL (0.00-0.03); Imm Gran Pct Auto 1.2 % (0.0-0.4); Lymphocytes Absolute Auto 1.7 X10*3/uL (1.2-4.9); Lymphocytes Percent Auto 12.9 % (20-40); Mean Corpuscular HGB Conc 34.9 g/dl (31.0-36.0); Mean Corpuscular Hemoglobin 34.7 pg (27.0-33.0); Mean Corpuscular Volume 99.3 fL (80.0-98.0); Mean Platelet Volume 8.8 fL (9.4-12.4); Monocytes Absolute Auto 1.2 X10*3/uL (0.1-1.2); Monocytes Percent Auto 8.7 % (2-11); Neut%MD 75.7 %; Neutrophils Absolute Auto 10.2 x10*3/uL (2.0-8.3); Neutrophils Percent Auto 75.7 % (45-73); Platelet Count 329 X10*3/uL (160-400); Red Blood Count 4.01 X10*6/uL (4.60-5.80); Red Cell Distribution Width 11.6 % (11.0-16.0); WBCANC 13.5 X10*3/uL; White Blood Count 13.5 X10*3/uL (4.8-10.8)
[2023-07-20] MEDS: Amoxicillin/Potassium Clav 875 MG TABLET PO (08:35)
[2023-07-20] MEDS: carBAMazepine ER 200 MG TAB.ER.12H PO (08:35)
[2023-07-20 08:44] LABS: Alanine Aminotransferase 47 U/L (0-40); Albumin Level 3.8 g/dL (3.5-5.0); Alkaline Phosphatase 68 U/L (39-117); Anion Gap 14 (12-20); Aspartate Amino Transferase 31 U/L (5-37); Bilirubin Direct 0.1 mg/dL (0.0-0.5); Bilirubin Total 0.3 mg/dL (0.0-1.0); Blood Urea Nitrogen 11 mg/dL (9-16); Calcium 9.2 mg/dL (8.4-10.2); Carbamazepine Tegretol 7.5 mcg/mL (5.0-12.0); Carbon Dioxide 25 mmol/L (22-29); Chloride 106 mmol/L (96-108); Creatinine Clr Calc Pharmacy 137.4; Estimated Glomerular Filt Rate > 60; Glucose Random 111 mg/dL (60-115); Potassium 4.5 mmol/L (3.3-5.1); Sodium 140 mmol/L (135-145); Total Protein 6.7 g/dL (6.5-8.0)
[2023-07-20] MEDS: Nicotine 21 MG PATCH.TD24 TRANSDERMA (08:45)
[2023-07-20] MEDS: Acetaminophen 325 MG TABLET 650 MG PO (08:46)
--- NOTE | 2023-07-20 10:24 | P.DS_ITS ---
DS: Providers Provider Date of Service: 07/20/23 Date of admission: 07/05/23 12:25 Primary care physician: Unknown Physician DS: Diagnosis Discharge Diagnosis (1) Schizoaffective disorder, bipolar type: Status: Acute (2) Cannabis use disorder, mild, abuse: Status: Acute DS: Medications Discharge Medications Home Medications: Previous Rx's ?Medication ?Instructions ?Recorded amoxicillin 875 mg-potassium 1 tab PO BID 7 days #14 tabs 07/20/23 clavulanate 125 mg tablet carbamazepine 200 mg 200 mg PO BID 30 days #60 tabs 07/20/23 tablet,extended release,12 hr clozapine 100 mg tablet 100 mg PO BEDTIME 30 days #30 tabs 07/20/23 melatonin 3 mg tablet 9 mg (3 x 3 mg) PO BEDTIME 30 days 07/20/23 #90 tabs nicotine (polacrilex) 4 mg buccal 4 mg buccal Q2H PRN Nicotine 07/20/23 lozenge Cravings 30 days #108 ea nicotine 21 mg/24 hr daily 21 mg transdermal DAILY 28 days 07/20/23 transdermal patch #28 ea sennosides 8.6 mg-docusate sodium 1 tab PO DAILY PRN constipation 30 07/20/23 50 mg tablet (Senna Plus) days #30 tabs trazodone 100 mg tablet 100 mg PO BEDTIME PRN insomnia 30 07/20/23 days #30 tabs Mental Status Exam Mental Status Exam Narrative: Appearance: dressed in street clothes, adequately Behavior: less guarded Psychomotor: no PMA/PMR Speech: spontaneous, nml rate and amount Thoughts: linear, logical. Mood: happy Affect: full range, normo-intense, non-labile SI: none HI: none AH/VH: none Insight/judgment: improving x 2. Data Data Completed and Pending Completed studies during hospitalization [Text1]: 07/20/23 08:08 WBC 13.5 H RBC 4.01 L Hgb 13.9 L Hct 39.8 L MCV 99.3 H MCH 34.7 H MCHC 34.9 RDW 11.6 Plt Count 329 MPV 8.8 L Immature Gran % (Auto) 1.2 H Neut % (Auto) 75.7 H Lymph % (Auto) 12.9 L Bandera % (Auto) 8.7 Eos % (Auto) 1.1 Baso % (Auto) 0.4 Lymph # (Auto) 1.7 Bandera # (Auto) 1.2 Eos # (Auto) 0.2 Baso # (Auto) 0.1 Abs Immat Gran (auto) 0.16 H Absolute Neuts (auto) 10.2 H Absolute Nucleated RBC 0.000 Nucleated RBC % (auto) 0.0 Sodium 140 Potassium 4.5 Chloride 106 Carbon Dioxide 25 Anion Gap 14 BUN 11 Creatinine 0.70 Estim Creat Clear Calc 137.4 Estimated GFR > 60 Random Glucose 111 Calcium 9.2 Total Bilirubin 0.3 Direct Bilirubin 0.1 AST 31 ALT 47 H Alkaline Phosphatase 68 Total Protein 6.7 Albumin 3.8 Carbamazepine 7.5 DS: Summary Hospital Course Hospital Course: per 07/04 admission note: The patient is a 28-year-old male brought into the emergency room on a section 12 after being evaluated in the community by [facility]. Patient reportedly has been increasingly psychotic acting bizarrely disrobing talking in a bizarre manner any experiencing intrusive hallucinations from his neighbor. He made suicidal statements when seen in the community saying just shoot me kill me he has a history of multiple psychiatric hospitalizations has been noncompliant with medications apparently for a number of months. Patient does use marijuana on a regular basis. The patient has stated that he does not need medication is not currently in outpatient psychiatric care he was restarted on clozapine and Depakote in the emergency room by Dr. Felder Past Psychiatric History: -Hx of multiple psych admissions, [place] [facility] [place]5 05/[place] -No current OP providers. Hx of lack of follow up with OP providers -Past med trials: Risperdal, olanzapine, paliperidone, depakote, haldol (dysto megan) Medical Evaluation Reviewed: Yes Recent hypokalemia [facility] Medical History Schizoaffective disorder, bipolar type Bipolar 1 disorder Alcohol abuse Family History: mother - bipolar disorder father - bipolar disorder sister - post- depression, anxiety Social History: Unclear currently. As per chart historically: born in [place], raised by his mother. has one sister. did not graduate from . was with a woman for 11 years and he now has an 11 yo daughter. he is from the girl's mother. Lives alone in an apartment. Substance History: Regular marijuana and alcohol use intense cravings for marijuana and nicotine vaping Trauma History: some hx; not clear on details Precis: Patient admitted on a section 12 B history of multiple psychiatric hospitalizations his agitated and history of schizoaffective disorder appears to be in psychotic agitated state. Had done well reportedly on Clozaril Depakote in the past. He is somewhat anemic question etiology patient with long history of noncompliance has failed Invega olanzapine in the past unclear if will take clozapine on any regular basis might do better with a long-acting injectable. Need additional information from family outpatient provider records available encourage therapeutic Talpa compliance patient currently admitted on a section 12 B PLAN 07/05 increase clozaril 25mg po daily, 100mg po qhs. he has been out of the hospital for longer period of time with clozaril. 07/06 appears somnolent, no additional medications given but continues to have difficulty sleeping. LFTs trending down- however, not typical of him to have LFT elevation. Will add hep panel. will hold depakote for now as he appears sedated/somnolent. continue clozaril. 07/07: DC ativan as it is not a sustainable treatment in someone refusing other medications for psychosis and jazmine. pt is already on klonopin at [facility]. refusing clozaril, says he won't take depakote either. denies he has mental illness. zabala warning provided. signed CV, then signed 3-day notice. 07/08: refusing clozapine. DC klonopin. restart VPA. 3-day notice matures 07/12. do not give benzos, as we would like to have pt take neuroleptics and proper mood stabilizers instead and do not want to mask or partially treat his jazmine with unsustainable treatment, pending maturation of 3-day notice. 07/09: continue to encourage medication compliance. 07/10: Nursing reported pt was responding to internal stimuli and began posturing at staff and hitting RN's hand in the morning. Restraint orders were ordered from on-call , Dr. Radford. T/W examined patient at 0825. Pt was calm and requesting to be released from restraint chair to lay down. Pt released at 0830. Pt slept rest of morning with 1:1 staff present. 07/11: hyperverbal, paranoid delusions re treatment by staff. involuntary medication yesterday. continue current mgmt. 07/12: euphoric, dancing; then labile, irritable, threatening to lisa. informed of filing and hearing date. 07/13: euphoric, labile, irritable. agrees to trial of tegretol, to start at 100 BID. increase clozapine to 75 mg tonight. 07/14: more calm. increase tegretol to 200 BID. continue with clozapine 75 QHS. 07/15: feels improved on current regimen. some lability and grandiosity. continue current regimen, re-evaluate on wednesday. 07/16: Continue current treatment and plan 07/17: Continue current regimen and plans 07/18: increase clozaril to 100 mg QHS. check labs in the a.m. if all is stable and reassuring, discharge prior to court tomorrow. 07/19: labs reassuring re tegretol. anemia noted, pt counseled to seek eval from PCP after discharge. meds reviewed, reconciled, prescribed. pt discharged to home as per plan. Time Spent with Patient Time attestation: Total time managing care of this patient today __35__ minutes. Discharge Plan Discharge Anticipated Discharge Date/Time: 07/20/23 10:22 Patient Disposition: Home, Self-Care Discharge Diagnosis: Schizoaffective Disorder, Bipolar Type Cannabis Use Disorder Referrals: [facility] [Provider Group] - 1 Week () Discharge Medications: New nicotine 21 mg/24 hr Patch 24 Hour 21 mg transdermal DAILY 28 Days Qty: 28 0RF amoxicillin-pot clavulanate 875-125 mg Tablet 1 tab PO BID 7 Days Qty: 14 0RF nicotine (polacrilex) 4 mg Lozenge 4 mg buccal Q2H PRN (Reason: Nicotine Cravings) 30 Days Qty: 108 0RF clozapine 100 mg Tablet 100 mg PO BEDTIME 30 Days Qty: 30 0RF sennosides-docusate sodium [Senna Plus] 8.6-50 mg Tablet 1 tab PO DAILY PRN (Reason: constipation) 30 Days Qty: 30 0RF melatonin 3 mg Tablet 9 mg PO BEDTIME 30 Days Qty: 90 0RF trazodone 100 mg Tablet 100 mg PO BEDTIME PRN (Reason: insomnia) 30 Days Qty: 30 0RF carbamazepine 200 mg Tablet Extended Release 12 Hr 200 mg PO BID 30 Days Qty: 60 0RF Discharge Orders: Discharge Order (Routine); Ordered 07/20/23 Ordered By: Ben Mcdonald Diet: Advance to usual diet Activity on Discharge: As tolerated Stand Alone Forms: Patient Portal Discharge page, Community Support Print Language: Paraguayan Care Plan Goals: remain safe and stable in the outpatient treatment setting Health Concerns: anemia Plan of Treatment: take medications as prescribed, attend appointments as scheduled Assessment: not at imminent risk of harm to self or others Discharge Date/Time: 07/20/23 11:25
== END 2023-07-20 11:25 | disposition home or self-care (01) | DRG 750 ==
LOC: HO.ED 07-03 19:01 → HO.PADLT16 07-05 13:01
PROVIDERS: Emergency Medicine; Social Worker; Admitting Provider Registered Nurse; Emergency Provider Emergency Medicine Emergency Medical Services; Visit Provider Psychiatry & Neurology Psychiatry
DX: F25.0 Schizoaffective disorder, bipolar type (principal); F12.10 Cannabis abuse, uncomplicated; Z78.1 Physical restraint status; Z87.891 Personal history of nicotine dependence; Z79.899 Other long term (current) drug therapy
CPT/HCPCS: 36415; 80048; 80053; 80061; 80076; 80156; 80307; 81003; 82140; 82607; 82746; 83540; 85025; 85048; 86704; 86706; 86709; 86803; 87340; 93005; 99285; J1200; J2060; J2359; J3486; S9485

== ENCOUNTER → 2023-07-01 13:28 | Outpatient (BNV) | payer OTHER, SELFPAY | PROVIDERS: Emergency Provider Emergency Medicine; Visit Provider Psychiatry & Neurology Psychiatry | DX: F25.0 Schizoaffective disorder, bipolar type (principal); F12.10 Cannabis abuse, uncomplicated | CPT/HCPCS: 99231; 99232; 99284; 99499 ==

== ENCOUNTER → 2023-07-02 19:32 | Outpatient (BNV) | payer MEDICAID, SELFPAY | PROVIDERS: Emergency Provider Emergency Medicine Emergency Medical Services; Visit Provider Internal Medicine | DX: R94.31 Abnormal electrocardiogram [ECG] [EKG] (principal) | CPT/HCPCS: 93010 ==

== ENCOUNTER → 2023-07-05 12:25 | Outpatient (BNV) | payer OTHER, SELFPAY | PROVIDERS: Admitting Provider Registered Nurse; Emergency Provider Emergency Medicine Emergency Medical Services; Visit Provider Psychiatry & Neurology Psychiatry | DX: F25.0 Schizoaffective disorder, bipolar type (principal); F12.10 Cannabis abuse, uncomplicated | CPT/HCPCS: 90792; 99499 ==

== ENCOUNTER 2023-07-27 13:36 | Inpatient (IN) | payer MEDICAID, OTHER, SELFPAY ==
[2023-07-27 14:01] VITALS: BP 159/99; PULSE 114; RESP 20; TEMP 36.3; O2SAT 96; BMI 25.7
[2023-07-27 14:05] VITALS: RESP 16
--- NOTE | 2023-07-27 14:09 | ED_ITS ---
HPI - Psych General Chief Complaint: Psychiatric Symptoms Stated Complaint: SEC 12,MANIC,PD ONBOARD,RESTRAINED PER EMS Time Seen by Provider: 07/27/23 13:39 Source: patient and EMS Mode of arrival: EMS Limitations: other (agitated does not want to talk) History of Present Illness ED Provider: HARISH HPI Narrative: 28 yo male with PMH of schizoaffective disorder bipolar type, psychosis, hx of med noncompliance and frequent visits to the ED for agitation aggressive. He was sent on S12 for agitation, making HI threats towards his mom and her boyfriend, punched a wall. He came in with PD. He is refusing meds and labs. I do not know when he last took his medications. MD complaint: other (paranoid, agitated, HI) Onset (ago): unknown Duration: constant History of same: Yes Relieving factors: none Exacerbating factors: other Context: not taking psychiatric medications Associated psychiatric symptoms: racing thoughts and delusions Associated symptoms: denies other symptoms Treatments prior to arrival: placed on mental health hold Related Data Home Medications ?Medication ?Instructions ?Recorded ?Confirmed clozapine 100 mg tablet 100 mg PO BEDTIME 07/27/23 07/27/23 melatonin 3 mg tablet 9 mg PO BEDTIME 07/27/23 07/27/23 nicotine (polacrilex) 4 mg buccal 4 mg buccal Q2H PRN nicotine 07/27/23 07/27/23 lozenge cravings nicotine 21 mg/24 hr daily 1 patch transdermal DAILY 07/27/23 07/27/23 transdermal patch sennosides 8.6 mg-docusate sodium 1 tab PO DAILY PRN constipation 07/27/23 07/27/23 50 mg tablet (Senexon-S) trazodone 100 mg tablet 100 mg PO BEDTIME PRN insomnia 07/27/23 07/27/23 Allergies Allergy/AdvReac Type Severity Reaction Status Date / Time haloperidol [From Haldol] AdvReac Severe dystonia Verified 07/27/23 14:04 Review of Systems Review of Systems: ROS unable to be obtained due to patient being agitated and uncooperative PMFSH Past Medical History Source: old records reviewed Medical History Schizoaffective disorder, bipolar type Bipolar 1 disorder Alcohol abuse Social History Social History Household Members: Family Housing: Apartment Do you presently have visiting nurse or other home services: No Unable to assess alcohol history related to: Refusing to respond Alcohol intake: current Alcohol intake frequency: 3 or more drinks per day Alcohol type: hard liquor Comment: Dr. Campbell Patient Tobacco Use Status: Former Tobacco user Quit Date: Unknown Tobacco use type: Cigarette Cigarette Packs Per Day: 1 Cigarettes Per Day: 20.0 Years Smoked: ''a long time'' e-Cigarette/Vaping Use: Currently Using Second Hand Smoke Exposure: No Use of substances other than those prescribed or required for medical reasons: Refusing to respond Substance Use Type: Marijuana Advance Directives: No Advance Directives Information Provided: No service: No Sexual orientation: Straight/Heterosexual Physical Exam Vital Signs: Vital Signs: Last Vital Signs Temp 97.4 F 07/27/23 14:01 Pulse 114 H 07/27/23 14:01 Resp 16 07/27/23 14:05 BP 159/99 H 07/27/23 14:01 Pulse Ox 96 07/27/23 14:01 O2 Del Method Room Air 07/27/23 14:01 BMI result Body Mass Index 25.7 Appearance: Alert. Oriented X3. Mild acute distress. pacing around agitated, asking for water then demanding to see what we put in it Eyes: Pupils equal, round and reactive to light. ENT: Pharynx normal. atraumatic Neck: Normal inspection. Neck supple. CVS: Pulses normal. Respiratory: No respiratory distress. Abdomen: atraumatic Skin: Skin warm and dry. Normal skin color. Extremities: No lower extremity edema. he will not allow me to look at his hands but he did grasp the water cup with both hands without issue Neuro: Oriented X 3. No motor deficit. No sensory deficit. CN2-intact appear intact Course Course Course Narrative: signed out to oncoming provider pending labs and CARE team assessment 4pm Medications Administered Discontinued Medications Generic Name Dose Route Start Last Admin Trade Name Josh PRN Reason Stop Dose Admin Diphenhydramine HCl 50 mg 07/27/23 13:38 07/27/23 14:16 Diphenhydramine Hcl 50 Mg/Ml Vial IM 07/27/23 13:39 Not Given ONCE ONE Midazolam HCl 4 mg 07/27/23 13:38 07/27/23 14:16 Midazolam Hcl/Pf 2 Mg/2 Ml Vial IM 07/27/23 13:39 Not Given ONCE ONE Olanzapine 10 mg 07/27/23 13:38 07/27/23 14:17 Olanzapine 10 Mg Vial IM 07/27/23 13:39 Not Given STAT STA Medical Decision Making Medical Decision Making [facility] Narrative: 28 yo male with PMH of schizoaffective disorder bipolar type, psychosis, hx of med noncompliance here with agitation, HI, he is refusing oral medications initially IM ordered but he seems to be self regulating right now at this time night medications, CARE team consult. Differential Diagnosis Differential Diagnoses: The differential diagnosis associated with the presentation includes schizoaffective, bipolar, non compliance Admission/Observation Consideration of admission/observation: Escalation of care including admission/observation considered physician observation started at 241pm pending CARE team observation Consult Healthcare Provider Management of the patient was discussed with: Acupressurist (did speak to Javi SENIOR FRONT END ENGINEER start back on 25mg clozaril now if we cannot confirm he has been taking his medications) Independent Historian Clinical information obtained from an independent historian. History obtained from or confirmed by: EMS External Record Review External record reviewed: Inpatient record Discharge Plan Discharge Clinical Impression: Schizoaffective disorder, bipolar type Patient Disposition: Still a Patient Prescriptions: No Action clozapine 100 mg tablet 100 mg PO BEDTIME sennosides-docusate sodium [Senexon-S] 8.6-50 mg tablet 1 tab PO DAILY PRN (Reason: constipation) melatonin 3 mg tablet 9 mg PO BEDTIME trazodone 100 mg tablet 100 mg PO BEDTIME PRN (Reason: insomnia) nicotine 21 mg/24 hr patch 24 hour 1 patch transdermal DAILY nicotine (polacrilex) 4 mg lozenge 4 mg buccal Q2H PRN (Reason: nicotine cravings) Interventions: [place]-Suicide Risk Severity Scale Last Done: 07/27/23 14:05 Print Language: French
--- NOTE | 2023-07-27 14:56 | PC.NURSE ---
Patient refusing lab work, uncooperative with care but unwilling to take PO medications. There is no current indication for restraint
--- NOTE | 2023-07-27 15:20 | PC.NURSE ---
Pt escalating in verbal aggression, threatening pod tech. This RN intervened, explained to patient that he cannot be verbally threatening to others. Once again offered medications, patient refusing. Able to self re-direct. Patient verbalizes frustration with step-father and reports that he is taking his frustration out on the staff. Patient continues to pace around pod
--- NOTE | 2023-07-27 17:18 | PC.NURSE ---
Patient continues to pace back and forth, somewhat able to self redirect when angry. Patient requesting medication for headache, MD Joslyn garza
[2023-07-27] MEDS: Ibuprofen 600 MG TABLET PO (17:25)
--- NOTE | 2023-07-27 18:59 | PC.NURSE ---
patient agitated upon t/ws arrival to unit patient was approached about possible medication but client doesnt want to interact w t/w or provider.
--- NOTE | 2023-07-27 21:59 | PC.NURSE ---
patient asking for nicotine gum, t/w emcouraged client to focus on getting urine result in, soon thereafter seemingly expressed displeasure by tossing water on floor.
--- NOTE | 2023-07-27 22:39 | PC.NURSE ---
patient was disruptive and encouraged to go to room, patient talked quietly to t/w in room for about five minutes then refused medications, t/w left room.
[2023-07-27] MEDS: LORazepam 2 MG/ML VIAL IM (23:00)
[2023-07-27] MEDS: OLANZapine 10 MG VIAL IM (23:00)
--- NOTE | 2023-07-27 23:37 | MHC.EDTECH ---
pt continues to refuse to give UA and bloodwork. RN AWARE.
--- NOTE | 2023-07-27 23:40 | PC.NURSE ---
positive effect post im medications, patient fell asleep easily, stated he felt scared prior to falling asleep so t/w sat in front of client door
[2023-07-28 03:35] LABS: Amphetamine Screen Urine Not Detected (Not Detect); Barbiturates, Urine Not Detected (Not Detect); Benzodiazepines Screen Urine Not Detected (Not Detect); Buprenorphine Scr Not Detected (Not Detect); Cannabinoid Screen Urine POSITIVE (Not Detect); Cocaine Screen Urine Not Detected (Not Detect); Fentanyl, urine Not Detected (Not Detect); Methadone Screen, Urine Not Detected (Not Detect); Opiate Screen Urine Not Detected (Not Detect); Oxycodone Screen Urine Not Detected (Not Detect); Phencyclidine Screen Urine Not Detected (Not Detect)
[2023-07-28 03:38] LABS: Appearance Urine Clear; Color Urine Yellow; Glucose Urine UA Negative (Negative); Leukocyte Esterase Urine Negative (Negative); Nitrite Urine Negative (Negative); Urine Blood Negative (Negative); Urine Ketones Trace mg/dL (Negative); Urine Protein Negative (Neg-Trace)
--- NOTE | 2023-07-28 06:58 | PC.NURSE ---
Assumed care of patient at 0645, patient appears to be in no apparent distress this am, much better mood than yesterday, expressing gratitude for staffs help and apologizing for his outbursts yesterday. Patient requesting shower this am, provided with shower materials. Pending care eval at this time
[2023-07-28 07:53] VITALS: BP 165/94; PULSE 113; RESP 14; TEMP 36.4; O2SAT 98
[2023-07-28 08:06] LABS: MANUAL DIFF FLAG NO
[2023-07-28 08:12] LABS: Basophils Absolute Auto 0.1 X10*3/uL (0.0-0.2); Basophils Percent Auto 0.4 % (0-2); Eosinophils Absolute Auto 0.2 X10*3/uL (0.0-0.4); Eosinophils Percent Auto 2.1 % (0-4); Hematocrit 42.2 % (42.0-52.0); Hemoglobin 14.7 g/dl (14.0-18.0); Imm Gran Abs Auto 0.08 X10*3/uL (0.00-0.03); Imm Gran Pct Auto 0.7 % (0.0-0.4); Lymphocytes Absolute Auto 2.5 X10*3/uL (1.2-4.9); Lymphocytes Percent Auto 22.5 % (20-40); Mean Corpuscular HGB Conc 34.8 g/dl (31.0-36.0); Mean Corpuscular Hemoglobin 34.6 pg (27.0-33.0); Mean Corpuscular Volume 99.3 fL (80.0-98.0); Mean Platelet Volume 8.9 fL (9.4-12.4); Monocytes Absolute Auto 1.3 X10*3/uL (0.1-1.2); Monocytes Percent Auto 11.8 % (2-11); Neut%MD 63.3 %; Neutrophils Absolute Auto 6.5 x10*3/uL (2.0-8.3); Neutrophils Percent Auto 62.5 % (45-73); Platelet Count 366 X10*3/uL (160-400); Red Blood Count 4.25 X10*6/uL (4.60-5.80); Red Cell Distribution Width 11.8 % (11.0-16.0); WBCANC 10.3 X10*3/uL; White Blood Count 11.1 X10*3/uL (4.8-10.8)
[2023-07-28 08:27] LABS: Alanine Aminotransferase 38 U/L (0-40); Albumin Level 3.8 g/dL (3.5-5.0); Alkaline Phosphatase 91 U/L (39-117); Anion Gap 14 (12-20); Aspartate Amino Transferase 40 U/L (5-37); Bilirubin Total 0.6 mg/dL (0.0-1.0); Blood Urea Nitrogen 14 mg/dL (9-16); Calcium 8.8 mg/dL (8.4-10.2); Carbon Dioxide 20 mmol/L (22-29); Chloride 109 mmol/L (96-108); Creatinine Clr Calc Pharmacy 108.9; Estimated Glomerular Filt Rate > 60; Ethanol < 10 mg/dL; Glucose Random 115 mg/dL (60-115); Potassium 3.5 mmol/L (3.3-5.1); Sodium 139 mmol/L (135-145); Total Protein 6.9 g/dL (6.5-8.0)
[2023-07-28] MEDS: Acetaminophen 325 MG TABLET 650 MG PO ×2 (08:55→21:02)
[2023-07-28] MEDS: carBAMazepine ER 200 MG TAB.ER.12H PO ×2 (08:55→21:02)
[2023-07-28] MEDS: Nicotine 21 MG PATCH.TD24 TRANSDERMA (08:55)
[2023-07-28] MEDS: Ibuprofen 600 MG TABLET PO (10:07)
--- NOTE | 2023-07-28 10:11 | PC.NURSE ---
Patient reporting LLE extremity pain that has been consistent x3 days, no known trauma. Provided with both tyelnol and ibuprofen per MAR
[2023-07-28] MEDS: Nicotine Polacrilex 2 MG GUM BUCCAL ×2 (10:52→19:25)
--- NOTE | 2023-07-28 10:54 | PC.NURSE ---
Adi received restraining order paperwork from Research And Evaluation Analyst department. Restraining order against mother. Patient became very upset, endorsing homicidal ideations towards his step-father. Patient responded well to verbal redirection and music. Is now pacing back and both listening to music with headphones provided by pod staff.
--- NOTE | 2023-07-28 12:16 | PC.NURSE ---
Patient continues to listen to music, no apparent distress noted, calm and cooperative, politely asking for items as needed. Self-redirecting when agitated. Otherwise no immediate needs noted
[2023-07-28] MEDS: Lidocaine 4 % Patch ADH..PATCH 1 PATCH TRANSDERMA (12:24)
[2023-07-28 13:56] VITALS: BMI 30.1
[2023-07-28 13:57] VITALS: BP 140/99; PULSE 107; RESP 18; TEMP 36.4; O2SAT 96
[2023-07-28 14:14] LABS: Carbamazepine Tegretol < 2.0 mcg/mL (5.0-12.0)
--- NOTE | 2023-07-28 15:26 | PC.ADMIT ---
Adi was admitted to at 1310 from [facility] [place] for treatment of schizoaffective disorder, bipolar type. The patient has had several prior psychiatric admissions, including a recent discharge from . Prior to admission, the patient was assessed by [facility] crisis as a result of reported jazmine, lack of sleep, agitation, delusional thought, and punching a wall at a home following an argument with his mother and her boyfriend. The patient has also reportedly not been medication compliant since last discharge. Per patient and crisis report, the patient called the police on his mother the night prior claiming that she was acting suicidal. Adi stated that his mother and stepfather ?just want to see me locked up and they lie about how they treat me and act.? Per crisis, the mother denied these allegations. Patient was subsequently served a restraining order against his mother while in the ED. Upon admission, the patient was alert and oriented x 4. He was cooperative with staff but displayed rapid, pressured, speech and agitation over his mother. Thought process disorganized and patient appeared to be responding to internal stimuli. Pt observed listening to headphones, dancing, and self-dialoguing. However, he denied current SI/HI/AH/VH. Affect was anxious/constricted. Pt has reportedly not been sleeping well, contributing to his emotional lability. Pt attributed this to the arguments taking place in the home. Pt reported daily tobacco and marijuana use, as well as alcohol use, but denied withdrawal symptoms or need for monitoring. Skin check performed. Visible skin intact. Pt has bruising to R hand but exhibits full ROM. Pt also has tooth pain in lower molar from broken tooth. No further physical complaints noted. Pt signed conditional voluntary. Placed on 15 minute checks for safety.
[2023-07-28] MEDS: Nicotine Polacrilex Lozenge 4 MG LOZENGE BUCCAL ×3 (16:21→23:06)
[2023-07-28] MEDS: cloZAPine 25 MG TABLET PO (21:02)
[2023-07-28] MEDS: traZODone HCL 100 MG TABLET PO (23:06)
[2023-07-29] MEDS: Acetaminophen 325 MG TABLET 650 MG PO (03:23)
[2023-07-29] MEDS: Nicotine Polacrilex Lozenge 4 MG LOZENGE BUCCAL ×2 (03:23→07:06)
[2023-07-29 07:00] VITALS: BMI 30.1
[2023-07-29] MEDS: Lidocaine 4 % Patch ADH..PATCH 1 PATCH TRANSDERMA (07:05)
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
[2023-07-29] MEDS: carBAMazepine ER 200 MG TAB.ER.12H PO ×2 (09:14→21:44)
[2023-07-29] MEDS: Nicotine 21 MG PATCH.TD24 TRANSDERMA (09:15)
[2023-07-29] MEDS: Nicotine Polacrilex 2 MG GUM BUCCAL ×3 (09:19→21:51)
[2023-07-29] MEDS: Sennosides/Docusate Sodium TABLET 1 TAB PO (11:24)
[2023-07-29] MEDS: Nicotine Polacrilex Lozenge 2 MG LOZENGE BUCCAL ×2 (11:24→16:36)
[2023-07-29] MEDS: Sulfamethox/Trimeth 800/160 TABLET 1 TAB PO (15:22)
[2023-07-29 20:00] VITALS: RESP 18
[2023-07-29] MEDS: cloZAPine 25 MG TABLET 50 MG PO (21:42)
[2023-07-29] MEDS: Melatonin 3 MG TABLET 9 MG PO (21:44)
[2023-07-29] MEDS: Throat Lozenge, Medicated LOZENGE 1 LOZENGE MUCOUS MEM (21:51)
[2023-07-30] MEDS: Acetaminophen 325 MG TABLET 650 MG PO (01:20)
[2023-07-30] MEDS: Nicotine Polacrilex Lozenge 2 MG LOZENGE BUCCAL ×4 (01:21→21:09)
[2023-07-30] MEDS: Sulfamethox/Trimeth 800/160 TABLET 1 TAB PO ×2 (01:21→15:23)
[2023-07-30] MEDS: Lidocaine 4 % Patch ADH..PATCH 1 PATCH TRANSDERMA (03:36)
[2023-07-30] MEDS: Throat Lozenge, Medicated LOZENGE 1 LOZENGE MUCOUS MEM (04:32)
[2023-07-30] MEDS: Nicotine Polacrilex 2 MG GUM BUCCAL ×2 (05:31→11:28)
[2023-07-30] MEDS: Sennosides/Docusate Sodium TABLET 1 TAB PO (08:16)
[2023-07-30] MEDS: carBAMazepine ER 200 MG TAB.ER.12H PO ×2 (08:16→21:57)
--- NOTE | 2023-07-30 10:09 | PC.NURSE ---
Pt refused PRN Lorazepam 2mg and Olanzapine 5mg PO at 1000
[2023-07-30] MEDS: OLANZapine 10 MG VIAL IM (11:24)
[2023-07-30] MEDS: LORazepam 2 MG/ML VIAL IM (11:24)
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
[2023-07-30 20:00] VITALS: RESP 16
[2023-07-30] MEDS: OLANZapine 5 MG TABLET PO (21:58)
[2023-07-30] MEDS: cloZAPine 25 MG TABLET 75 MG PO (21:59)
[2023-07-30] MEDS: Ibuprofen 800 MG TABLET PO (22:50)
[2023-07-31] MEDS: Sulfamethox/Trimeth 800/160 TABLET 1 TAB PO ×3 (01:31→21:07)
[2023-07-31] MEDS: Nicotine Polacrilex Lozenge 2 MG LOZENGE BUCCAL ×5 (01:31→17:29)
--- NOTE | 2023-07-31 01:33 | PC.NURSE ---
ABX given at this time as patient is awake.
[2023-07-31] MEDS: Acetaminophen 325 MG TABLET 650 MG PO ×2 (05:11→20:37)
[2023-07-31] MEDS: Nicotine 21 MG PATCH.TD24 TRANSDERMA (05:22)
[2023-07-31] MEDS: Throat Lozenge, Medicated LOZENGE 1 LOZENGE MUCOUS MEM ×2 (05:25→18:52)
[2023-07-31] MEDS: OLANZapine 5 MG TABLET PO ×2 (05:25→21:08)
--- NOTE | 2023-07-31 05:45 | PC.NURSE ---
requesting smoking patch at this. patch administered.
[2023-07-31 07:29] VITALS: BP 156/94; PULSE 120; RESP 21; TEMP 36.8; O2SAT 98
[2023-07-31] MEDS: carBAMazepine ER 200 MG TAB.ER.12H PO ×2 (08:18→21:08)
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
[2023-07-31] MEDS: Ibuprofen 800 MG TABLET PO (14:26)
[2023-07-31 20:00] VITALS: BP 143/81; PULSE 108; RESP 18; TEMP 36.7; O2SAT 98
[2023-07-31] MEDS: Nicotine Polacrilex 2 MG GUM BUCCAL (20:38)
[2023-07-31] MEDS: cloZAPine 25 MG TABLET 75 MG PO (21:07)
[2023-08-01] MEDS: Nicotine Polacrilex 2 MG GUM BUCCAL ×3 (02:50→11:38)
[2023-08-01] MEDS: Throat Lozenge, Medicated LOZENGE 1 LOZENGE MUCOUS MEM ×2 (03:45→12:52)
[2023-08-01] MEDS: Ibuprofen 800 MG TABLET PO ×2 (03:45→15:42)
[2023-08-01] MEDS: Nicotine 21 MG PATCH.TD24 TRANSDERMA (05:38)
[2023-08-01 07:05] VITALS: BP 134/84; PULSE 115; RESP 18; TEMP 36.7; O2SAT 98
[2023-08-01] MEDS: Sulfamethox/Trimeth 800/160 TABLET 1 TAB PO ×2 (08:07→20:19)
[2023-08-01] MEDS: carBAMazepine ER 200 MG TAB.ER.12H PO ×2 (08:07→20:19)
[2023-08-01] MEDS: Sennosides/Docusate Sodium TABLET 1 TAB PO (08:11)
[2023-08-01 08:58] LABS: Clozapine (Clozaril) <10 mcg/L; Norclozapine <10 mcg/L (25-400)
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
[2023-08-01] MEDS: Nicotine Polacrilex Lozenge 2 MG LOZENGE BUCCAL ×2 (14:40→19:17)
[2023-08-01] MEDS: cloZAPine 25 MG TABLET 75 MG PO (20:19)
[2023-08-01 21:00] VITALS: BP 142/82; PULSE 110; RESP 16; TEMP 36.6; O2SAT 96
[2023-08-01] MEDS: OLANZapine 5 MG TABLET PO (21:09)
[2023-08-02] MEDS: Ibuprofen 800 MG TABLET PO ×3 (02:48→22:25)
[2023-08-02] MEDS: Nicotine Polacrilex Lozenge 2 MG LOZENGE BUCCAL ×7 (02:48→21:27)
[2023-08-02] MEDS: Throat Lozenge, Medicated LOZENGE 1 LOZENGE MUCOUS MEM ×2 (06:17→12:31)
[2023-08-02] MEDS: OLANZapine 5 MG TABLET PO ×3 (06:17→20:25)
[2023-08-02 08:41] VITALS: BP 130/71; PULSE 110; RESP 18; TEMP 36.8; O2SAT 98
[2023-08-02] MEDS: Nicotine 21 MG PATCH.TD24 TRANSDERMA (08:44)
[2023-08-02] MEDS: carBAMazepine ER 200 MG TAB.ER.12H PO ×2 (10:41→20:25)
[2023-08-02] MEDS: Sulfamethox/Trimeth 800/160 TABLET 1 TAB PO ×2 (10:42→20:26)
--- NOTE | 2023-08-02 14:19 | HO.PSYCHPN ---
Subjective Subjective Date of Service: 08/02/23 Reason For Visit: Francia Interim History: less labile and agitated than wednesday. informed of plan to increase clozaril to 100 mg tonight. c/o too many mental games on the unit. discusses conflict with peer here and his machismo-informed plans for asserting his dominance with conflictual peers on the unit. per staff, paranoid, labile, agitated. taking meds. +RIS. threatening and posturing toward staff and peer. using PRN zyprexa. Mental Status Exam Mental Status Exam Narrative: Appearance: dressed in street clothes Behavior: guarded Psychomotor: PMA of pacing the halls, dancing Speech: spontaneous, incr rate and amount Mood: not assessed Affect: full range, hyper-intense, mod-labile SI: none expressed HI: none expressed AH/VH: none expressed Delusions: + Insight/judgment: poor x 2. Diagnostics Vital Signs (24Hr): Vital Signs - 24 hr 08/01/23 21:00 08/02/23 08:41 Temperature 97.8 F 98.2 F Pulse Rate 110 H 110 H Respiratory Rate 16 18 Blood Pressure 142/82 H 130/71 Pulse Oximetry 96 98 Oxygen Delivery Method Room Air Room Air BMI result Body Mass Index 30.1 Labs 07/28/23 08:01 07/28/23 08:01 Labs: Laboratory Results - last 48 hr 07/28/23 08:01 Clozapine <10 L Norclozapine <10 L Medications Medications Current Medications Acetaminophen (Acetaminophen 325 Mg Tablet) 650 mg PO Q6H PRN PRN Reason: Headache/Pain Mild Scale (1-3) Last Admin: 07/31/23 20:37 Dose: 650 mg Al Hydroxide/Mg Hydroxide (Magnesium Hydrox/Alum Hydrox 30 Ml Oral.Susp) 30 ml PO Q6H PRN PRN Reason: Heartburn/Nausea Benzocaine (Throat Lozenge, Medicated Lozenge) 1 lozenge MUCOUS MEM Q1H PRN PRN Reason: Sore Throat Last Admin: 08/02/23 12:31 Dose: 1 lozenge Benzocaine (Benzocaine 20 % Oral Gel 9 Gm Tube) 1 appl MUCOUS MEM QID PRN; Protocol PRN Reason: Dental pain Carbamazepine (Carbamazepine Er 200 Mg Tab.Er.12h) 200 mg PO BID [facility] Last Admin: 08/02/23 10:41 Dose: 200 mg Clozapine (Clozapine 100 Mg Tablet) 100 mg PO BEDTIME [facility] Hydroxyzine HCl (Hydroxyzine Hcl 25 Mg Tablet) 25 mg PO Q6H PRN PRN Reason: Anxiety Ibuprofen (Ibuprofen 800 Mg Tablet) 800 mg PO Q8H PRN PRN Reason: Pain, Moderate(Pain Scale 4-6) Last Admin: 08/02/23 12:31 Dose: 800 mg Lidocaine (Lidocaine 4 % Patch Adh..Patch) 1 patch TRANSDERMA DAILY PRN; Protocol PRN Reason: Pain, Moderate(Pain Scale 4-6) Last Admin: 07/30/23 03:36 Dose: 1 patch Magnesium Hydroxide (Milk Of Magnesia 30 Ml Oral.Susp) 30 ml PO DAILY PRN PRN Reason: Constipation Melatonin (Melatonin 3 Mg Tablet) 9 mg PO BEDTIME [facility] Last Admin: 08/01/23 22:29 Dose: Not Given Nicotine (Nicotine 21 Mg Patch.Td24) 21 mg TRANSDERMA DAILY [facility] Last Admin: 08/02/23 08:44 Dose: 21 mg Nicotine Polacrilex (Nicotine Polacrilex Lozenge 2 Mg Lozenge) 2 mg BUCCAL Q1H PRN PRN Reason: nicotine cravings (toothache) Last Admin: 08/02/23 10:48 Dose: 2 mg Nicotine Polacrilex (Nicotine Polacrilex 2 Mg Gum) 2 mg BUCCAL Q1H PRN PRN Reason: nicotine crave (no toothaches) Olanzapine (Olanzapine 5 Mg Tablet) 5 mg PO Q4H PRN PRN Reason: Anxiety Last Admin: 08/02/23 10:42 Dose: 5 mg Senna/Docusate Sodium (Sennosides/Docusate Sodium Tablet) 1 tab PO DAILY [facility] Last Admin: 08/02/23 10:14 Dose: Not Given Trazodone HCl (Trazodone Hcl 100 Mg Tablet) 100 mg PO BEDTIME [facility] Last Admin: 08/01/23 22:29 Dose: Not Given Trimethoprim/Sulfamethoxazole (Sulfamethox/Trimeth 800/160 Tablet) 1 tab PO Q12H [facility] Last Admin: 08/02/23 10:42 Dose: 1 tab Allergies Allergies Allergy/AdvReac Type Severity Reaction Status Date / Time haloperidol [From Haldol] AdvReac Severe dystonia Verified 07/27/23 14:04 Assessment & Plan Assessment & Plan (1) Cannabis use disorder, mild, abuse: Status: Acute Code(s): F12.10 - Cannabis abuse, uncomplicated (2) Tobacco use disorder: Status: Acute Code(s): F17.200 - Nicotine dependence, unspecified, uncomplicated (3) Schizoaffective disorder, bipolar type: Status: Acute Code(s): F25.0 - Schizoaffective disorder, bipolar type Plan 07/28: increase clozapine to 50 mg as of tonight. continue tegretol 200 BID. await stabilization. ativan per CIWA protocol. 07/29: scoring low on CIWA. agitated, labile. provoking fights with others, threatening to kill people. after being kicked today, put hands on peer. received IM medications and slept. did not sleep at all overnight. increase clozapine to 75 mg tonight, which pt is saying he will refuse to take. 07/31/2023: No changes to current regimen. Continue to encourage full adherence with clozapine dose 08/01: increase clozaril to 100 mg QHS. less agitated and labile than wednesday. Reason for continued inpatient stay Substantial Risk for: harm to self, harm to others, inability to function and rapid decompensation Time Spent With Patient Time: Total time managing care of this patient today __35__ minutes.
[2023-08-02] MEDS: Acetaminophen 325 MG TABLET 650 MG PO (16:50)
[2023-08-02 20:00] VITALS: BP 146/79; PULSE 95; RESP 16; TEMP 36.7; O2SAT 98
[2023-08-02] MEDS: cloZAPine 100 MG TABLET PO (20:25)
[2023-08-02] MEDS: Benzocaine 20 % Oral Gel 9 GM TUBE 1 APPL MUCOUS MEM (22:24)
[2023-08-03] MEDS: Melatonin 3 MG TABLET 9 MG PO (02:06)
--- NOTE | 2023-08-03 02:09 | PC.NURSE ---
Addendum entered by Lina Thakkar RN 08/03/23 02:37: patient requested to take HS Trazodone at 0235 Original Note: Adi declined Melatonin and Trazodone at HS but requested and received Melatonin later in the evening
[2023-08-03] MEDS: traZODone HCL 100 MG TABLET PO (02:37)
[2023-08-03] MEDS: Nicotine Polacrilex Lozenge 2 MG LOZENGE BUCCAL ×2 (06:08→18:38)
--- NOTE | 2023-08-03 06:43 | PC.NURSE ---
Adi requested PRN Zyprexa at approximately 2030 for difficulty controlling his frustration r/t a peer C.C. making accusatory and inflammatory statements in front of Adi. Zyprexa appeared to have very good effect as patient remained in behavioral control throughout the night despite peer C.C. continuing to make inflammatory accusations.
[2023-08-03 07:38] VITALS: BP 141/79; PULSE 115; RESP 16; TEMP 36.4; O2SAT 98
[2023-08-03] MEDS: Sennosides/Docusate Sodium TABLET 1 TAB PO (08:16)
[2023-08-03] MEDS: carBAMazepine ER 200 MG TAB.ER.12H PO (08:17)
[2023-08-03] MEDS: Ibuprofen 800 MG TABLET PO ×2 (08:17→17:47)
[2023-08-03] MEDS: Sulfamethox/Trimeth 800/160 TABLET 1 TAB PO ×2 (08:17→21:11)
[2023-08-03] MEDS: OLANZapine 5 MG TABLET PO ×2 (08:17→21:11)
[2023-08-03] MEDS: Nicotine 21 MG PATCH.TD24 TRANSDERMA (08:18)
[2023-08-03] MEDS: Throat Lozenge, Medicated LOZENGE 1 LOZENGE MUCOUS MEM (08:18)
[2023-08-03] MEDS: Benzocaine 20 % Oral Gel 9 GM TUBE 1 APPL MUCOUS MEM ×3 (08:21→21:10)
--- NOTE | 2023-08-03 13:45 | HO.PSYCHPN ---
Subjective Subjective Date of Service: 08/03/23 Reason For Visit: Francia Interim History: effusive, cooperative, hyperverbal, grandiose. agreeable to increase tegretol from 200 BID to 300 BID. asking to decrease melatonin and trazodone, which is agreed to. per staff, remains on CO. labile, agitated. appears to be +RIS. taking meds. no SI/HI. loud. punched wall. threw water, then apologized and cleaned it up. slept about 3.5 hours. Mental Status Exam Mental Status Exam Narrative: Appearance: dressed in street clothes Behavior: guarded Psychomotor: PMA of pacing the halls, dancing Speech: spontaneous, incr rate and amount Mood: not assessed Affect: full range, hyper-intense, mod-labile SI: none expressed HI: none expressed AH/VH: none expressed Delusions: + Insight/judgment: poor x 2. Diagnostics Vital Signs (24Hr): Vital Signs - 24 hr 08/02/23 20:00 08/03/23 07:38 Temperature 98.1 F 97.5 F Pulse Rate 95 115 H Respiratory Rate 16 16 Blood Pressure 146/79 H 141/79 H Pulse Oximetry 98 98 Oxygen Delivery Method Room Air Room Air BMI result Body Mass Index 30.1 Labs 07/28/23 08:01 07/28/23 08:01 Medications Medications Current Medications Acetaminophen (Acetaminophen 325 Mg Tablet) 650 mg PO Q6H PRN PRN Reason: Headache/Pain Mild Scale (1-3) Last Admin: 08/02/23 16:50 Dose: 650 mg Al Hydroxide/Mg Hydroxide (Magnesium Hydrox/Alum Hydrox 30 Ml Oral.Susp) 30 ml PO Q6H PRN PRN Reason: Heartburn/Nausea Benzocaine (Throat Lozenge, Medicated Lozenge) 1 lozenge MUCOUS MEM Q1H PRN PRN Reason: Sore Throat Last Admin: 08/03/23 08:18 Dose: 1 lozenge Benzocaine (Benzocaine 20 % Oral Gel 9 Gm Tube) 1 appl MUCOUS MEM QID PRN; Protocol PRN Reason: Dental pain Last Admin: 08/03/23 08:21 Dose: 1 appl Carbamazepine (Carbamazepine Er 100 Mg Tab.Er.12h) 300 mg PO BID [facility] Clozapine (Clozapine 100 Mg Tablet) 100 mg PO BEDTIME [facility] Last Admin: 08/02/23 20:25 Dose: 100 mg Hydroxyzine HCl (Hydroxyzine Hcl 25 Mg Tablet) 25 mg PO Q6H PRN PRN Reason: Anxiety Ibuprofen (Ibuprofen 800 Mg Tablet) 800 mg PO Q8H PRN PRN Reason: Pain, Moderate(Pain Scale 4-6) Last Admin: 08/03/23 08:17 Dose: 800 mg Lidocaine (Lidocaine 4 % Patch Adh..Patch) 1 patch TRANSDERMA DAILY PRN; Protocol PRN Reason: Pain, Moderate(Pain Scale 4-6) Last Admin: 07/30/23 03:36 Dose: 1 patch Magnesium Hydroxide (Milk Of Magnesia 30 Ml Oral.Susp) 30 ml PO DAILY PRN PRN Reason: Constipation Melatonin (Melatonin 3 Mg Tablet) 3 mg PO BEDTIME [facility] Nicotine (Nicotine 21 Mg Patch.Td24) 21 mg TRANSDERMA DAILY [facility] Last Admin: 08/03/23 08:18 Dose: 21 mg Nicotine Polacrilex (Nicotine Polacrilex Lozenge 2 Mg Lozenge) 2 mg BUCCAL Q1H PRN PRN Reason: nicotine cravings (toothache) Last Admin: 08/03/23 06:08 Dose: 2 mg Nicotine Polacrilex (Nicotine Polacrilex 2 Mg Gum) 2 mg BUCCAL Q1H PRN PRN Reason: nicotine crave (no toothaches) Olanzapine (Olanzapine 5 Mg Tablet) 5 mg PO Q4H PRN PRN Reason: Anxiety Last Admin: 08/03/23 08:17 Dose: 5 mg Senna/Docusate Sodium (Sennosides/Docusate Sodium Tablet) 1 tab PO DAILY [facility] Last Admin: 08/03/23 08:16 Dose: 1 tab Trazodone HCl (Trazodone Hcl 50 Mg Tablet) 50 mg PO BEDTIME [facility] Trimethoprim/Sulfamethoxazole (Sulfamethox/Trimeth 800/160 Tablet) 1 tab PO Q12H [facility] Last Admin: 08/03/23 08:17 Dose: 1 tab Allergies Allergies Allergy/AdvReac Type Severity Reaction Status Date / Time haloperidol [From Haldol] AdvReac Severe dystonia Verified 07/27/23 14:04 Assessment & Plan Assessment & Plan (1) Cannabis use disorder, mild, abuse: Status: Acute Code(s): F12.10 - Cannabis abuse, uncomplicated (2) Tobacco use disorder: Status: Acute Code(s): F17.200 - Nicotine dependence, unspecified, uncomplicated (3) Schizoaffective disorder, bipolar type: Status: Acute Code(s): F25.0 - Schizoaffective disorder, bipolar type Plan 07/28: increase clozapine to 50 mg as of tonight. continue tegretol 200 BID. await stabilization. ativan per CIWA protocol. 07/29: scoring low on CIWA. agitated, labile. provoking fights with others, threatening to kill people. after being kicked today, put hands on peer. received IM medications and slept. did not sleep at all overnight. increase clozapine to 75 mg tonight, which pt is saying he will refuse to take. 07/31/2023: No changes to current regimen. Continue to encourage full adherence with clozapine dose 08/01: increase clozaril to 100 mg QHS. less agitated and labile than wednesday. 08/02: increase tegretol from 200 BID to 300 BID. decrease melatonin to 3 mg and trazodone to 50 mg QHS. continues less labile and agitated than on wednesday, although did punch a wall last night and threw water (which he subsequently apologized for and cleaned up). Reason for continued inpatient stay Substantial Risk for: harm to self, harm to others, inability to function and rapid decompensation Time Spent With Patient Time: Total time managing care of this patient today __35__ minutes.
[2023-08-03] MEDS: OLANZapine ODT 10 MG TAB.RAPDIS 20 MG TRANSLINGU (14:30)
[2023-08-03] MEDS: Acetaminophen 325 MG TABLET 650 MG PO ×2 (14:46→21:12)
--- NOTE | 2023-08-03 17:44 | PC.NURSE ---
Patient submitted three day notice.
--- NOTE | 2023-08-03 18:02 | PC.NURSE ---
At approximately 1415 patient was passing by male peer who was on the phone. Patient attempted to speak with peer who clearly stated he was not interested in speaking with him. Patient unreceptive to constant observers redirection to pass by, keep pacing. Offered private space, 1:1 time. Patient unreceptive to interventions Patient started to physically lean into staff while yelling making physical gestures toward male peer. Patient's behavior continues erratic and threatening. Security called to floor. Medication ordered, administered at 1430.
[2023-08-03 20:00] VITALS: RESP 16; TEMP 36.6
[2023-08-03 21:00] VITALS: BP 146/78; PULSE 110; RESP 16; O2SAT 98
[2023-08-03] MEDS: carBAMazepine ER 100 MG TAB.ER.12H 300 MG PO (21:10)
[2023-08-03] MEDS: cloZAPine 100 MG TABLET PO (21:12)
[2023-08-03] MEDS: Melatonin 3 MG TABLET PO (22:49)
[2023-08-03] MEDS: traZODone HCL 50 MG TABLET PO (22:49)
[2023-08-04] MEDS: Ibuprofen 800 MG TABLET PO ×3 (03:50→22:34)
[2023-08-04] MEDS: Benzocaine 20 % Oral Gel 9 GM TUBE 1 APPL MUCOUS MEM ×2 (03:52→22:35)
[2023-08-04] MEDS: Nicotine Polacrilex Lozenge 2 MG LOZENGE BUCCAL ×4 (05:29→16:44)
[2023-08-04] MEDS: Acetaminophen 325 MG TABLET 650 MG PO ×2 (06:54→17:38)
[2023-08-04 07:47] VITALS: BP 140/81; PULSE 99; RESP 16; TEMP 36.9; O2SAT 97
[2023-08-04] MEDS: Sulfamethox/Trimeth 800/160 TABLET 1 TAB PO ×2 (08:07→21:39)
[2023-08-04] MEDS: carBAMazepine ER 100 MG TAB.ER.12H 300 MG PO ×2 (08:07→21:38)
[2023-08-04] MEDS: Throat Lozenge, Medicated LOZENGE 1 LOZENGE MUCOUS MEM ×3 (12:29→21:23)
--- NOTE | 2023-08-04 12:59 | HO.PSYCHPN ---
Subjective Subjective Date of Service: 08/04/23 Reason For Visit: Francia Interim History: slightly less irritable and labile than yesterday, but still appears barely under control. would like to discharge wednesday, will ask his uncle if he can live with him. asks if MD will let him go, MD declines to make any promises but does say MD thinks pt should stay in the hospital. per staff, 3-day up wednesday. paranoid, labile, agitated, aggressive. taking meds. slept 4 hours. conflict with peers x 2 yesterday, received medication restraint after one of them. Mental Status Exam Mental Status Exam Narrative: Appearance: dressed in street clothes Behavior: guarded Psychomotor: PMA of pacing the halls, dancing Speech: spontaneous, incr rate and amount Mood: not assessed Affect: full range, hyper-intense, mod-labile SI: none expressed HI: none expressed AH/VH: none expressed Delusions: + Insight/judgment: poor x 2. Diagnostics Vital Signs (24Hr): Vital Signs - 24 hr 08/03/23 20:00 08/03/23 21:00 08/04/23 07:47 Temperature 97.8 F 98.5 F Pulse Rate 110 H 99 Respiratory Rate 16 16 16 Blood Pressure 146/78 H 140/81 H Pulse Oximetry 98 97 Oxygen Delivery Method Room Air Room Air BMI result Body Mass Index 30.1 Labs 07/28/23 08:01 07/28/23 08:01 Medications Medications Current Medications Acetaminophen (Acetaminophen 325 Mg Tablet) 650 mg PO Q6H PRN PRN Reason: Headache/Pain Mild Scale (1-3) Last Admin: 08/04/23 06:54 Dose: 650 mg Al Hydroxide/Mg Hydroxide (Magnesium Hydrox/Alum Hydrox 30 Ml Oral.Susp) 30 ml PO Q6H PRN PRN Reason: Heartburn/Nausea Benzocaine (Throat Lozenge, Medicated Lozenge) 1 lozenge MUCOUS MEM Q1H PRN PRN Reason: Sore Throat Last Admin: 08/04/23 12:29 Dose: 1 lozenge Benzocaine (Benzocaine 20 % Oral Gel 9 Gm Tube) 1 appl MUCOUS MEM QID PRN; Protocol PRN Reason: Dental pain Last Admin: 08/04/23 03:52 Dose: 1 appl Carbamazepine (Carbamazepine Er 100 Mg Tab.Er.12h) 300 mg PO BID [facility] Last Admin: 08/04/23 08:07 Dose: 300 mg Clozapine (Clozapine 100 Mg Tablet) 100 mg PO BEDTIME [facility] Last Admin: 08/03/23 21:12 Dose: 100 mg Hydroxyzine HCl (Hydroxyzine Hcl 25 Mg Tablet) 25 mg PO Q6H PRN PRN Reason: Anxiety Ibuprofen (Ibuprofen 800 Mg Tablet) 800 mg PO Q8H PRN PRN Reason: Pain, Moderate(Pain Scale 4-6) Last Admin: 08/04/23 03:50 Dose: 800 mg Lidocaine (Lidocaine 4 % Patch Adh..Patch) 1 patch TRANSDERMA DAILY PRN; Protocol PRN Reason: Pain, Moderate(Pain Scale 4-6) Last Admin: 07/30/23 03:36 Dose: 1 patch Magnesium Hydroxide (Milk Of Magnesia 30 Ml Oral.Susp) 30 ml PO DAILY PRN PRN Reason: Constipation Melatonin (Melatonin 3 Mg Tablet) 3 mg PO BEDTIME [facility] Last Admin: 08/03/23 22:49 Dose: 3 mg Nicotine (Nicotine 21 Mg Patch.Td24) 21 mg TRANSDERMA DAILY [facility] Last Admin: 08/04/23 08:10 Dose: Not Given Nicotine Polacrilex (Nicotine Polacrilex Lozenge 2 Mg Lozenge) 2 mg BUCCAL Q1H PRN PRN Reason: nicotine cravings (toothache) Last Admin: 08/04/23 12:02 Dose: 2 mg Nicotine Polacrilex (Nicotine Polacrilex 2 Mg Gum) 2 mg BUCCAL Q1H PRN PRN Reason: nicotine crave (no toothaches) Olanzapine (Olanzapine 5 Mg Tablet) 5 mg PO Q4H PRN PRN Reason: Anxiety Last Admin: 08/03/23 21:11 Dose: 5 mg Senna/Docusate Sodium (Sennosides/Docusate Sodium Tablet) 1 tab PO DAILY PRN PRN Reason: constipation Trazodone HCl (Trazodone Hcl 50 Mg Tablet) 50 mg PO BEDTIME [facility] Last Admin: 08/03/23 22:49 Dose: 50 mg Trimethoprim/Sulfamethoxazole (Sulfamethox/Trimeth 800/160 Tablet) 1 tab PO Q12H [facility] Last Admin: 08/04/23 08:07 Dose: 1 tab Allergies Allergies Allergy/AdvReac Type Severity Reaction Status Date / Time haloperidol [From Haldol] AdvReac Severe dystonia Verified 05/28/24 14:04 Assessment & Plan Assessment & Plan (1) Cannabis use disorder, mild, abuse: Status: Acute Code(s): F12.10 - Cannabis abuse, uncomplicated (2) Tobacco use disorder: Status: Acute Code(s): F17.200 - Nicotine dependence, unspecified, uncomplicated (3) Schizoaffective disorder, bipolar type: Status: Acute Code(s): F25.0 - Schizoaffective disorder, bipolar type Plan 07/28: increase clozapine to 50 mg as of tonight. continue tegretol 200 BID. await stabilization. ativan per CIWA protocol. 07/29: scoring low on CIWA. agitated, labile. provoking fights with others, threatening to kill people. after being kicked today, put hands on peer. received IM medications and slept. did not sleep at all overnight. increase clozapine to 75 mg tonight, which pt is saying he will refuse to take. 07/31/2023: No changes to current regimen. Continue to encourage full adherence with clozapine dose 08/01: increase clozaril to 100 mg QHS. less agitated and labile than wednesday. 08/02: increase tegretol from 200 BID to 300 BID. decrease melatonin to 3 mg and trazodone to 50 mg QHS. continues less labile and agitated than on wednesday, although did punch a wall last night and threw water (which he subsequently apologized for and cleaned up). 08/03: medication restraint yesterday after appearing to attempt to get at a peer in a violent way - staff blocked movement. verbal altercation with another peer in the evening. today remains reactive and labile, perhaps less so than yesterday. taking meds. Reason for continued inpatient stay Substantial Risk for: harm to self, harm to others, inability to function and rapid decompensation Time Spent With Patient Time: Total time managing care of this patient today __35__ minutes.
[2023-08-04 20:00] VITALS: BP 153/75; PULSE 90; RESP 18; TEMP 36.9; O2SAT 95
[2023-08-04] MEDS: cloZAPine 100 MG TABLET PO (21:39)
--- NOTE | 2023-08-04 22:39 | PC.NURSE ---
Adi given Ibuprofen PO prn for tooth pain 08/08.
[2023-08-05] MEDS: traZODone HCL 50 MG TABLET PO ×2 (00:06→21:39)
[2023-08-05] MEDS: Melatonin 3 MG TABLET PO ×2 (00:07→21:39)
[2023-08-05] MEDS: Throat Lozenge, Medicated LOZENGE 1 LOZENGE MUCOUS MEM ×3 (02:54→11:55)
[2023-08-05] MEDS: Nicotine Polacrilex Lozenge 2 MG LOZENGE BUCCAL ×4 (05:24→22:30)
[2023-08-05] MEDS: Acetaminophen 325 MG TABLET 650 MG PO ×2 (05:25→21:36)
--- NOTE | 2023-08-05 05:27 | PC.NURSE ---
Adi given Tylenol PO prn for mild throat pain.
[2023-08-05 07:00] VITALS: BMI 30.9
[2023-08-05 07:53] VITALS: BP 145/77; PULSE 110; RESP 16; TEMP 36.3; O2SAT 98
[2023-08-05] MEDS: carBAMazepine ER 100 MG TAB.ER.12H 300 MG PO ×2 (08:09→21:39)
[2023-08-05] MEDS: Sulfamethox/Trimeth 800/160 TABLET 1 TAB PO ×2 (08:10→21:39)
[2023-08-05 08:24] LABS: Neut%MD 69.6 %; Neutrophils Absolute Auto 8.2 x10*3/uL (2.0-8.3); WBCANC 11.7 X10*3/uL
[2023-08-05] MEDS: Ibuprofen 800 MG TABLET PO ×2 (08:28→17:13)
[2023-08-05] MEDS: Sennosides/Docusate Sodium TABLET 1 TAB PO (08:28)
--- NOTE | 2023-08-05 13:19 | HO.PSYCHPN ---
Subjective Subjective Date of Service: 08/05/23 Reason For Visit: Francia Subjective Notes: 3 Day Guardianship: No Interim History: Patient superficially pleasant for brief periods of time wanted all feeling challenged her asked about discharge planning he becomes more agitated restless challenging and explaining what happened prior to admission difficulty he had with his mother's partner and becomes easily agitated and suspicious patient on Tegretol and clozapine Mental Status Exam Mental Status Exam Narrative: Appearance: dressed in street clothes Behavior: Reactive easily irritated Psychomotor: PMA of pacing the halls Speech: spontaneous, incr rate and amount Mood: Angry apprehensive Affect: full range, hyper-intense, mood-labile SI: none expressed HI: none expressed AH/VH: none expressed Delusions: Suspicious challenging of motives Insight/judgment: poor x 2. Diagnostics Vital Signs (24Hr): Vital Signs - 24 hr 08/04/23 20:00 08/05/23 07:53 Temperature 98.4 F 97.3 F Pulse Rate 90 110 H Respiratory Rate 18 16 Blood Pressure 153/75 H 145/77 H Pulse Oximetry 95 98 Oxygen Delivery Method Room Air Room Air BMI result Body Mass Index 30.9 Labs 07/28/23 08:01 07/28/23 08:01 Labs: Laboratory Results - last 48 hr 08/05/23 07:56 Absolute Neuts (auto) 8.2 Medications Medications Current Medications Acetaminophen (Acetaminophen 325 Mg Tablet) 650 mg PO Q6H PRN PRN Reason: Headache/Pain Mild Scale (1-3) Last Admin: 08/05/23 05:25 Dose: 650 mg Al Hydroxide/Mg Hydroxide (Magnesium Hydrox/Alum Hydrox 30 Ml Oral.Susp) 30 ml PO Q6H PRN PRN Reason: Heartburn/Nausea Benzocaine (Throat Lozenge, Medicated Lozenge) 1 lozenge MUCOUS MEM Q1H PRN PRN Reason: Sore Throat Last Admin: 08/05/23 11:55 Dose: 1 lozenge Benzocaine (Benzocaine 20 % Oral Gel 9 Gm Tube) 1 appl MUCOUS MEM QID PRN; Protocol PRN Reason: Dental pain Last Admin: 08/04/23 22:35 Dose: 1 appl Carbamazepine (Carbamazepine Er 100 Mg Tab.Er.12h) 300 mg PO BID [facility] Last Admin: 08/05/23 08:09 Dose: 300 mg Clozapine (Clozapine 100 Mg Tablet) 100 mg PO BEDTIME [facility] Last Admin: 08/04/23 21:39 Dose: 100 mg Hydroxyzine HCl (Hydroxyzine Hcl 25 Mg Tablet) 25 mg PO Q6H PRN PRN Reason: Anxiety Ibuprofen (Ibuprofen 800 Mg Tablet) 800 mg PO Q8H PRN PRN Reason: Pain, Moderate(Pain Scale 4-6) Last Admin: 08/05/23 08:28 Dose: 800 mg Lidocaine (Lidocaine 4 % Patch Adh..Patch) 1 patch TRANSDERMA DAILY PRN; Protocol PRN Reason: Pain, Moderate(Pain Scale 4-6) Last Admin: 07/30/23 03:36 Dose: 1 patch Magnesium Hydroxide (Milk Of Magnesia 30 Ml Oral.Susp) 30 ml PO DAILY PRN PRN Reason: Constipation Melatonin (Melatonin 3 Mg Tablet) 3 mg PO BEDTIME [facility] Last Admin: 08/05/23 00:07 Dose: 3 mg Nicotine (Nicotine 21 Mg Patch.Td24) 21 mg TRANSDERMA DAILY [facility] Last Admin: 08/05/23 08:11 Dose: Not Given Nicotine Polacrilex (Nicotine Polacrilex Lozenge 2 Mg Lozenge) 2 mg BUCCAL Q1H PRN PRN Reason: nicotine cravings (toothache) Last Admin: 08/05/23 11:15 Dose: 2 mg Nicotine Polacrilex (Nicotine Polacrilex 2 Mg Gum) 2 mg BUCCAL Q1H PRN PRN Reason: nicotine crave (no toothaches) Olanzapine (Olanzapine 5 Mg Tablet) 5 mg PO Q4H PRN PRN Reason: Anxiety Last Admin: 08/03/23 21:11 Dose: 5 mg Senna/Docusate Sodium (Sennosides/Docusate Sodium Tablet) 1 tab PO DAILY PRN PRN Reason: constipation Last Admin: 08/05/23 08:28 Dose: 1 tab Trazodone HCl (Trazodone Hcl 50 Mg Tablet) 50 mg PO BEDTIME [facility] Last Admin: 08/05/23 00:06 Dose: 50 mg Trimethoprim/Sulfamethoxazole (Sulfamethox/Trimeth 800/160 Tablet) 1 tab PO Q12H [facility] Last Admin: 08/05/23 08:10 Dose: 1 tab Allergies Allergies Allergy/AdvReac Type Severity Reaction Status Date / Time haloperidol [From Haldol] AdvReac Severe dystonia Verified 07/27/23 14:04 Assessment & Plan Assessment & Plan (1) Cannabis use disorder, mild, abuse: Status: Acute Code(s): F12.10 - Cannabis abuse, uncomplicated (2) Tobacco use disorder: Status: Acute Code(s): F17.200 - Nicotine dependence, unspecified, uncomplicated (3) Schizoaffective disorder, bipolar type: Status: Acute Code(s): F25.0 - Schizoaffective disorder, bipolar type Plan 07/28: increase clozapine to 50 mg as of tonight. continue tegretol 200 BID. await stabilization. ativan per CIWA protocol. 07/29: scoring low on CIWA. agitated, labile. provoking fights with others, threatening to kill people. after being kicked today, put hands on peer. received IM medications and slept. did not sleep at all overnight. increase clozapine to 75 mg tonight, which pt is saying he will refuse to take. 07/31/2023: No changes to current regimen. Continue to encourage full adherence with clozapine dose 08/01: increase clozaril to 100 mg QHS. less agitated and labile than wednesday. 08/02: increase tegretol from 200 BID to 300 BID. decrease melatonin to 3 mg and trazodone to 50 mg QHS. continues less labile and agitated than on wednesday, although did punch a wall last night and threw water (which he subsequently apologized for and cleaned up). 08/03: medication restraint yesterday after appearing to attempt to get at a peer in a violent way - staff blocked movement. verbal altercation with another peer in the evening. today remains reactive and labile, perhaps less so than yesterday. taking meds. 08/05/23 Pt focused reportedly on living with uncle marked lack of insight refusing to discuss symptoms to reconsider 3 day need for hospitalization becomes easily agitated preoccupied with thoughts about how he is always being mal treated stating he would live with his uncle if discharged Reason for continued inpatient stay Substantial Risk for: harm to others and rapid decompensation Time Spent With Patient Time: Total time managing care of this patient today ____ minutes.
[2023-08-05 20:00] VITALS: BP 150/81; PULSE 100; RESP 16; TEMP 36.9; O2SAT 99
[2023-08-05] MEDS: cloZAPine 100 MG TABLET PO (21:39)
[2023-08-06] MEDS: Ibuprofen 800 MG TABLET PO ×2 (04:27→15:01)
[2023-08-06] MEDS: Throat Lozenge, Medicated LOZENGE 1 LOZENGE MUCOUS MEM ×4 (04:28→19:02)
[2023-08-06] MEDS: Nicotine Polacrilex Lozenge 2 MG LOZENGE BUCCAL ×3 (06:45→21:06)
--- NOTE | 2023-08-06 07:40 | PC.NURSE ---
08/06/23 Pt went up to staff and lunged at them quickly while putting a clenched fist right up to staffs face. He then proceeded to say he was just kidding. No further staff intervention needed.
[2023-08-06 07:53] VITALS: BP 143/71; PULSE 118; RESP 14; TEMP 36.5; O2SAT 93
--- NOTE | 2023-08-06 08:00 | PC.NURSE ---
08/06/23 At about 0800 Pt became agatiated at staff for not getting his socks and opening the laundry fast enough. Do your job you fucking faggot. He then went up into staffs face and grabbed at his arm. Pt was hard to redirect from staying out of peoples faces. No further intervention was needed.
[2023-08-06] MEDS: carBAMazepine ER 100 MG TAB.ER.12H 300 MG PO (08:13)
[2023-08-06] MEDS: Sulfamethox/Trimeth 800/160 TABLET 1 TAB PO ×2 (08:14→21:05)
[2023-08-06] MEDS: diazePAM 10 MG/2 ML CARTRIDGE IM (10:52)
[2023-08-06] MEDS: OLANZapine 10 MG VIAL IM (10:52)
[2023-08-06] MEDS: Acetaminophen 325 MG TABLET 650 MG PO ×2 (11:58→21:14)
--- NOTE | 2023-08-06 12:25 | PC.NURSE ---
08/06/23 At around 1030 the Doctor and older adult social work specialist explained to the pt that they will be filing on the him. Pt then became agitated, began yelling, pacing and slamming doors and unable to stay in behavioral control. Pt then began to pace the halls threatening staff and security. I am going to be your worst nightmare all weekend. You are all going to get it. Just try me. Pt lunged at staff and security multiple times while screaming at them and making physical gestures and unable to calm down. Pt was then directed to room was placed into a mechanical chair restraint at 1050and given IM olanzapine 10mg and 10mg Valium at 1052. Pt remained in behavioral control following restraint.
[2023-08-06] MEDS: Nicotine 21 MG PATCH.TD24 TRANSDERMA (15:03)
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
[2023-08-06] MEDS: cloZAPine 25 MG TABLET 125 MG PO (21:06)
[2023-08-06] MEDS: carBAMazepine ER 200 MG TAB.ER.12H 400 MG PO (21:06)
[2023-08-06 21:10] VITALS: BP 147/85; PULSE 105; RESP 18; TEMP 36.6; O2SAT 97
[2023-08-07] MEDS: Throat Lozenge, Medicated LOZENGE 1 LOZENGE MUCOUS MEM ×3 (05:23→21:24)
[2023-08-07] MEDS: Ibuprofen 800 MG TABLET PO ×2 (05:25→15:55)
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
[2023-08-07] MEDS: Nicotine Polacrilex Lozenge 2 MG LOZENGE BUCCAL ×4 (08:05→20:44)
[2023-08-07] MEDS: Sulfamethox/Trimeth 800/160 TABLET 1 TAB PO ×2 (09:40→21:20)
[2023-08-07] MEDS: carBAMazepine ER 200 MG TAB.ER.12H 400 MG PO ×2 (09:40→21:20)
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
[2023-08-07 20:55] VITALS: RESP 22; TEMP 36.4; O2SAT 96
[2023-08-07] MEDS: cloZAPine 25 MG TABLET 125 MG PO (21:20)
[2023-08-07] MEDS: Acetaminophen 325 MG TABLET 650 MG PO (21:24)
[2023-08-08] MEDS: traZODone HCL 50 MG TABLET PO (01:26)
[2023-08-08] MEDS: Melatonin 3 MG TABLET PO (01:26)
[2023-08-08] MEDS: Nicotine Polacrilex Lozenge 2 MG LOZENGE BUCCAL ×5 (01:28→19:11)
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
[2023-08-08] MEDS: Throat Lozenge, Medicated LOZENGE 1 LOZENGE MUCOUS MEM ×2 (03:21→21:25)
[2023-08-08 07:10] VITALS: BP 137/77; PULSE 115; RESP 16; TEMP 36.6; O2SAT 97
[2023-08-08] MEDS: Sennosides/Docusate Sodium TABLET 1 TAB PO (09:30)
[2023-08-08] MEDS: carBAMazepine ER 200 MG TAB.ER.12H 400 MG PO ×2 (09:30→21:22)
[2023-08-08] MEDS: Sulfamethox/Trimeth 800/160 TABLET 1 TAB PO ×2 (09:30→21:23)
[2023-08-08] MEDS: Nicotine 21 MG PATCH.TD24 TRANSDERMA (09:31)
[2023-08-08] MEDS: Ibuprofen 800 MG TABLET PO (10:34)
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
[2023-08-08] MEDS: Acetaminophen 325 MG TABLET 650 MG PO (16:08)
[2023-08-08 20:00] VITALS: BP 156/101; PULSE 115; RESP 18; TEMP 38.1; O2SAT 93
[2023-08-08] MEDS: cloZAPine 25 MG TABLET 125 MG PO (21:23)
[2023-08-09 08:00] VITALS: BP 159/95; PULSE 115; RESP 16; TEMP 36.8; O2SAT 96
[2023-08-09] MEDS: Ibuprofen 800 MG TABLET PO ×2 (08:35→17:06)
[2023-08-09] MEDS: Sulfamethox/Trimeth 800/160 TABLET 1 TAB PO ×2 (08:36→21:35)
[2023-08-09] MEDS: Sennosides/Docusate Sodium TABLET 1 TAB PO (08:36)
[2023-08-09] MEDS: carBAMazepine ER 200 MG TAB.ER.12H 400 MG PO ×2 (08:36→21:35)
[2023-08-09] MEDS: Nicotine 21 MG PATCH.TD24 TRANSDERMA (08:37)
[2023-08-09] MEDS: Nicotine Polacrilex Lozenge 2 MG LOZENGE BUCCAL ×3 (08:38→19:52)
[2023-08-09] MEDS: Throat Lozenge, Medicated LOZENGE 1 LOZENGE MUCOUS MEM ×2 (10:34→17:08)
--- NOTE | 2023-08-09 12:10 | P.PNPSI_ITS ---
Subjective Subjective Date of Service: 08/09/23 Reason For Visit: Francia Interim History: seen with Michelle LEDESMA. less labile and reactive than prior. remains manic. informed of plan to check labs tonight. per staff, broad affect, visible, taking meds. pleasant. slept about 5 hours. Mental Status Exam Mental Status Exam Narrative: Appearance: dressed in street clothes Behavior: open Psychomotor: PMA of pacing the halls, dancing Speech: spontaneous, incr rate, incr amount Mood: not assessed Affect: full range, hyper-intense, non-labile SI: none expressed HI: none expressed AH/VH: none expressed Delusions: none expressed Insight/judgment: poor x 2. Diagnostics Vital Signs (24Hr): Vital Signs - 24 hr 08/08/23 20:00 08/09/23 08:00 Temperature 100.6 F H 98.2 F Pulse Rate 115 H 115 H Respiratory Rate 18 16 Blood Pressure 156/101 H 159/95 H Pulse Oximetry 93 96 Oxygen Delivery Method Room Air Room Air BMI result Body Mass Index 30.9 Labs 07/28/23 08:01 07/28/23 08:01 Medications Medications Current Medications Acetaminophen (Acetaminophen 325 Mg Tablet) 650 mg PO Q6H PRN PRN Reason: Headache/Pain Mild Scale (1-3) Last Admin: 08/08/23 16:08 Dose: 650 mg Al Hydroxide/Mg Hydroxide (Magnesium Hydrox/Alum Hydrox 30 Ml Oral.Susp) 30 ml PO Q6H PRN PRN Reason: Heartburn/Nausea Benzocaine (Throat Lozenge, Medicated Lozenge) 1 lozenge MUCOUS MEM Q1H PRN PRN Reason: Sore Throat Last Admin: 08/09/23 10:34 Dose: 1 lozenge Benzocaine (Benzocaine 20 % Oral Gel 9 Gm Tube) 1 appl MUCOUS MEM QID PRN; Protocol PRN Reason: Dental pain Last Admin: 08/04/23 22:35 Dose: 1 appl Carbamazepine (Carbamazepine Er 200 Mg Tab.Er.12h) 400 mg PO BID [facility]ANNIE Last Admin: 08/09/23 08:36 Dose: 400 mg Clozapine (Clozapine 25 Mg Tablet) 125 mg PO BEDTIME [facility] Last Admin: 08/08/23 21:23 Dose: 125 mg Hydroxyzine HCl (Hydroxyzine Hcl 25 Mg Tablet) 25 mg PO Q6H PRN PRN Reason: Anxiety Ibuprofen (Ibuprofen 800 Mg Tablet) 800 mg PO Q8H PRN PRN Reason: Pain, Moderate(Pain Scale 4-6) Last Admin: 08/09/23 08:35 Dose: 800 mg Lidocaine (Lidocaine 4 % Patch Adh..Patch) 1 patch TRANSDERMA DAILY PRN; Protocol PRN Reason: Pain, Moderate(Pain Scale 4-6) Last Admin: 07/30/23 03:36 Dose: 1 patch Magnesium Hydroxide (Milk Of Magnesia 30 Ml Oral.Susp) 30 ml PO DAILY PRN PRN Reason: Constipation Melatonin (Melatonin 3 Mg Tablet) 3 mg PO BEDTIME PRN PRN Reason: insomnia Nicotine (Nicotine 21 Mg Patch.Td24) 21 mg TRANSDERMA DAILY [facility] Last Admin: 08/09/23 08:37 Dose: 21 mg Nicotine Polacrilex (Nicotine Polacrilex Lozenge 2 Mg Lozenge) 2 mg BUCCAL Q1H PRN PRN Reason: nicotine cravings (toothache) Last Admin: 08/09/23 08:38 Dose: 2 mg Nicotine Polacrilex (Nicotine Polacrilex 2 Mg Gum) 2 mg BUCCAL Q1H PRN PRN Reason: nicotine crave (no toothaches) Olanzapine (Olanzapine 5 Mg Tablet) 5 mg PO Q4H PRN PRN Reason: Anxiety Last Admin: 08/03/23 21:11 Dose: 5 mg Senna/Docusate Sodium (Sennosides/Docusate Sodium Tablet) 1 tab PO DAILY [facility] Last Admin: 08/09/23 08:36 Dose: 1 tab Trazodone HCl (Trazodone Hcl 50 Mg Tablet) 50 mg PO BEDTIME PRN PRN Reason: insomnia Trimethoprim/Sulfamethoxazole (Sulfamethox/Trimeth 800/160 Tablet) 1 tab PO Q12H [facility] Last Admin: 08/09/23 08:36 Dose: 1 tab Allergies Allergies Allergy/AdvReac Type Severity Reaction Status Date / Time haloperidol [From Haldol] AdvReac Severe dystonia Verified 07/27/23 14:04 Assessment & Plan Assessment & Plan (1) Cannabis use disorder, mild, abuse: Status: Acute Code(s): F12.10 - Cannabis abuse, uncomplicated (2) Tobacco use disorder: Status: Acute Code(s): F17.200 - Nicotine dependence, unspecified, uncomplicated (3) Schizoaffective disorder, bipolar type: Status: Acute Code(s): F25.0 - Schizoaffective disorder, bipolar type Plan 07/28: increase clozapine to 50 mg as of tonight. continue tegretol 200 BID. await stabilization. ativan per CIWA protocol. 07/29: scoring low on CIWA. agitated, labile. provoking fights with others, threatening to kill people. after being kicked today, put hands on peer. received IM medications and slept. did not sleep at all overnight. increase clozapine to 75 mg tonight, which pt is saying he will refuse to take. 07/31/2023: No changes to current regimen. Continue to encourage full adherence with clozapine dose 08/01: increase clozaril to 100 mg QHS. less agitated and labile than wednesday. 08/02: increase tegretol from 200 BID to 300 BID. decrease melatonin to 3 mg and trazodone to 50 mg QHS. continues less labile and agitated than on wednesday, although did punch a wall last night and threw water (which he subsequently apologized for and cleaned up). 08/03: medication restraint yesterday after appearing to attempt to get at a peer in a violent way - staff blocked movement. verbal altercation with another peer in the evening. today remains reactive and labile, perhaps less so than yesterday. taking meds. 08/05/23 Pt focused reportedly on living with uncle marked lack of insight refusing to discuss symptoms to reconsider 3 day need for hospitalization becomes easily agitated preoccupied with thoughts about how he is always being mal treated stating he would live with his uncle if discharged 08/05: medication restraint and physical restraint today upon being told of filing for commitment. pt later calmed with visitor and retracted 3-day notice. increase tegretol to 400 BID, increase clozapine to 125 QHS. 08/06: less volatile today, slept 7 hours last night. continue current mgmt. 08/07: one period of agitation overnight but calmed self. continues less volatile today. continue current mgmt. 08/08: continues more calm than prior, while still quite symptomatic. check labs tonight. Reason for continued inpatient stay Substantial Risk for: harm to self, harm to others, inability to function and rapid decompensation Time Spent With Patient Time: Total time managing care of this patient today __25__ minutes.
[2023-08-09 19:51] LABS: MANUAL DIFF FLAG NO
[2023-08-09 19:53] LABS: Basophils Absolute Auto 0.1 X10*3/uL (0.0-0.2); Basophils Percent Auto 0.5 % (0-2); Eosinophils Absolute Auto 0.2 X10*3/uL (0.0-0.4); Eosinophils Percent Auto 1.5 % (0-4); Hematocrit 40.5 % (42.0-52.0); Hemoglobin 14.3 g/dl (14.0-18.0); Imm Gran Abs Auto 0.16 X10*3/uL (0.00-0.03); Imm Gran Pct Auto 1.3 % (0.0-0.4); Lymphocytes Absolute Auto 2.1 X10*3/uL (1.2-4.9); Mean Corpuscular HGB Conc 35.3 g/dl (31.0-36.0); Mean Corpuscular Hemoglobin 34.9 pg (27.0-33.0); Mean Corpuscular Volume 98.8 fL (80.0-98.0); Mean Platelet Volume 8.6 fL (9.4-12.4); Monocytes Absolute Auto 1.2 X10*3/uL (0.1-1.2); Monocytes Percent Auto 9.6 % (2-11); Neutrophils Absolute Auto 8.7 x10*3/uL (2.0-8.3); Neutrophils Percent Auto 70.1 % (45-73); Platelet Count 372 X10*3/uL (160-400); Red Cell Distribution Width 11.6 % (11.0-16.0); White Blood Count 12.4 X10*3/uL (4.8-10.8)
[2023-08-09 20:00] VITALS: BP 156/94; PULSE 113; RESP 18; O2SAT 97
[2023-08-09 20:08] LABS: Alanine Aminotransferase 41 U/L (0-40); Alkaline Phosphatase 89 U/L (39-117); Aspartate Amino Transferase 29 U/L (5-37); Bilirubin Direct < 0.2 mg/dL (0.0-0.5); Bilirubin Total 0.2 mg/dL (0.0-1.0); Total Protein 7.2 g/dL (6.5-8.0)
[2023-08-09 20:09] LABS: Carbamazepine Tegretol 12.3 mcg/mL (5.0-12.0)
[2023-08-09] MEDS: cloZAPine 25 MG TABLET 125 MG PO (21:35)
--- NOTE | 2023-08-10 02:24 | PC.NURSE ---
Sabrina Hill notified of carbamazepine level at 12.3, put in order for retest of level on 08/11/2023
[2023-08-10 07:15] VITALS: BP 133/86; PULSE 111; RESP 14; TEMP 36.9; O2SAT 95
[2023-08-10] MEDS: carBAMazepine ER 200 MG TAB.ER.12H 400 MG PO ×2 (08:19→20:53)
[2023-08-10] MEDS: Sulfamethox/Trimeth 800/160 TABLET 1 TAB PO (08:19)
[2023-08-10] MEDS: Sennosides/Docusate Sodium TABLET 1 TAB PO (08:20)
[2023-08-10] MEDS: Nicotine Polacrilex Lozenge 2 MG LOZENGE BUCCAL ×5 (08:20→21:01)
--- NOTE | 2023-08-10 09:20 | P.PNPSI_ITS ---
Subjective Subjective Date of Service: 08/10/23 Reason For Visit: Francia Subjective Notes: Conditional Voluntary Interim History: Pt slept all night. he is taking medications as prescribed. He is pleasant on approach. He reports he feels calmer. He denies SI/HI. Much less judaism preoccupation. No overt psychosis. He is visible and social with select peers. NO behavioral concerns. Medication Compliance: Yes Side effects from medications: No Review of Systems Review of Systems ROS unable to be obtained due to patient being agitated and uncooperative Yes all other systems are reviewed and are negative Mental Status Exam Mental Status Exam Narrative: Appearance: dressed in street clothes Behavior: open Psychomotor: PMA of pacing the halls, dancing Speech: spontaneous, incr rate, incr amount Mood: not assessed Affect: full range, hyper-intense, non-labile SI: none expressed HI: none expressed AH/VH: none expressed Delusions: none expressed Insight/judgment: poor x 2. Diagnostics Vital Signs (24Hr): Vital Signs - 24 hr 08/09/23 20:00 08/10/23 07:15 Temperature 98.4 F Pulse Rate 113 H 111 H Respiratory Rate 18 14 Blood Pressure 156/94 H 133/86 Pulse Oximetry 97 95 Oxygen Delivery Method Room Air Room Air BMI result Body Mass Index 30.9 Labs 08/09/23 19:33 07/28/23 08:01 Labs: Laboratory Results - last 48 hr 08/09/23 19:33 WBC 12.4 H RBC 4.10 L Hgb 14.3 Hct 40.5 L MCV 98.8 H MCH 34.9 H MCHC 35.3 RDW 11.6 Plt Count 372 MPV 8.6 L Immature Gran % (Auto) 1.3 H Neut % (Auto) 70.1 Lymph % (Auto) 17.0 L Ellis % (Auto) 9.6 Eos % (Auto) 1.5 Baso % (Auto) 0.5 Lymph # (Auto) 2.1 Ellis # (Auto) 1.2 Eos # (Auto) 0.2 Baso # (Auto) 0.1 Abs Immat Gran (auto) 0.16 H Absolute Neuts (auto) 8.7 H Absolute Nucleated RBC 0.000 Nucleated RBC % (auto) 0.0 Total Bilirubin 0.2 Direct Bilirubin < 0.2 AST 29 ALT 41 H Alkaline Phosphatase 89 Total Protein 7.2 Albumin 4.0 Carbamazepine 12.3 H Medications Medications Current Medications Acetaminophen (Acetaminophen 325 Mg Tablet) 650 mg PO Q6H PRN PRN Reason: Headache/Pain Mild Scale (1-3) Last Admin: 08/08/23 16:08 Dose: 650 mg Al Hydroxide/Mg Hydroxide (Magnesium Hydrox/Alum Hydrox 30 Ml Oral.Susp) 30 ml PO Q6H PRN PRN Reason: Heartburn/Nausea Benzocaine (Throat Lozenge, Medicated Lozenge) 1 lozenge MUCOUS MEM Q1H PRN PRN Reason: Sore Throat Last Admin: 08/09/23 17:08 Dose: 1 lozenge Benzocaine (Benzocaine 20 % Oral Gel 9 Gm Tube) 1 appl MUCOUS MEM QID PRN; Protocol PRN Reason: Dental pain Last Admin: 08/04/23 22:35 Dose: 1 appl Carbamazepine (Carbamazepine Er 200 Mg Tab.Er.12h) 400 mg PO BID [facility] Last Admin: 08/10/23 08:19 Dose: 400 mg Clozapine (Clozapine 25 Mg Tablet) 125 mg PO BEDTIME [facility] Last Admin: 08/09/23 21:35 Dose: 125 mg Hydroxyzine HCl (Hydroxyzine Hcl 25 Mg Tablet) 25 mg PO Q6H PRN PRN Reason: Anxiety Ibuprofen (Ibuprofen 800 Mg Tablet) 800 mg PO Q8H PRN PRN Reason: Pain, Moderate(Pain Scale 4-6) Last Admin: 08/09/23 17:06 Dose: 800 mg Lidocaine (Lidocaine 4 % Patch Adh..Patch) 1 patch TRANSDERMA DAILY PRN; Protocol PRN Reason: Pain, Moderate(Pain Scale 4-6) Last Admin: 07/30/23 03:36 Dose: 1 patch Magnesium Hydroxide (Milk Of Magnesia 30 Ml Oral.Susp) 30 ml PO DAILY PRN PRN Reason: Constipation Melatonin (Melatonin 3 Mg Tablet) 3 mg PO BEDTIME PRN PRN Reason: insomnia Nicotine (Nicotine 21 Mg Patch.Td24) 21 mg TRANSDERMA DAILY [facility] Last Admin: 08/10/23 09:08 Dose: Not Given Nicotine Polacrilex (Nicotine Polacrilex Lozenge 2 Mg Lozenge) 2 mg BUCCAL Q1H PRN PRN Reason: nicotine cravings (toothache) Last Admin: 08/10/23 08:20 Dose: 2 mg Nicotine Polacrilex (Nicotine Polacrilex 2 Mg Gum) 2 mg BUCCAL Q1H PRN PRN Reason: nicotine crave (no toothaches) Olanzapine (Olanzapine 5 Mg Tablet) 5 mg PO Q4H PRN PRN Reason: Anxiety Last Admin: 08/03/23 21:11 Dose: 5 mg Senna/Docusate Sodium (Sennosides/Docusate Sodium Tablet) 1 tab PO DAILY [facility] Last Admin: 08/10/23 08:20 Dose: 1 tab Trazodone HCl (Trazodone Hcl 50 Mg Tablet) 50 mg PO BEDTIME PRN PRN Reason: insomnia Allergies Allergies Allergy/AdvReac Type Severity Reaction Status Date / Time haloperidol [From Haldol] AdvReac Severe dystonia Verified 07/27/23 14:04 Assessment & Plan Assessment & Plan (1) Schizoaffective disorder, bipolar type: Status: Acute Code(s): F25.0 - Schizoaffective disorder, bipolar type (2) Cannabis use disorder, mild, abuse: Status: Acute Code(s): F12.10 - Cannabis abuse, uncomplicated (3) Tobacco use disorder: Status: Acute Code(s): F17.200 - Nicotine dependence, unspecified, uncomplicated Plan 07/28: increase clozapine to 50 mg as of tonight. continue tegretol 200 BID. await stabilization. ativan per CIWA protocol. 07/29: scoring low on CIWA. agitated, labile. provoking fights with others, threatening to kill people. after being kicked today, put hands on peer. received IM medications and slept. did not sleep at all overnight. increase clozapine to 75 mg tonight, which pt is saying he will refuse to take. 07/31/2023: No changes to current regimen. Continue to encourage full adherence with clozapine dose 08/01: increase clozaril to 100 mg QHS. less agitated and labile than wednesday. 08/02: increase tegretol from 200 BID to 300 BID. decrease melatonin to 3 mg and trazodone to 50 mg QHS. continues less labile and agitated than on wednesday, although did punch a wall last night and threw water (which he subsequently apologized for and cleaned up). 08/03: medication restraint yesterday after appearing to attempt to get at a peer in a violent way - staff blocked movement. verbal altercation with another peer in the evening. today remains reactive and labile, perhaps less so than yesterday. taking meds. 08/05/23 Pt focused reportedly on living with uncle marked lack of insight refusing to discuss symptoms to reconsider 3 day need for hospitalization becomes easily agitated preoccupied with thoughts about how he is always being mal treated stating he would live with his uncle if discharged 08/05: medication restraint and physical restraint today upon being told of filing for commitment. pt later calmed with visitor and retracted 3-day notice. increase tegretol to 400 BID, increase clozapine to 125 QHS. 08/06: less volatile today, slept 7 hours last night. continue current mgmt. 08/07: one period of agitation overnight but calmed self. continues less volatile today. continue current mgmt. 08/08: continues more calm than prior, while still quite symptomatic. check labs tonight. 08/09 continue tx. Reason for continued inpatient stay Substantial Risk for: inability to function Time Spent With Patient Time: Total time managing care of this patient today ____ minutes.
[2023-08-10] MEDS: Throat Lozenge, Medicated LOZENGE 1 LOZENGE MUCOUS MEM (10:48)
[2023-08-10] MEDS: Ibuprofen 800 MG TABLET PO (18:44)
[2023-08-10 19:40] VITALS: BP 171/86; PULSE 126; RESP 18; TEMP 36.5; O2SAT 95
[2023-08-10] MEDS: cloZAPine 25 MG TABLET 125 MG PO (20:54)
[2023-08-11] MEDS: Nicotine Polacrilex 2 MG GUM BUCCAL (01:13)
[2023-08-11] MEDS: Throat Lozenge, Medicated LOZENGE 1 LOZENGE MUCOUS MEM (07:29)
[2023-08-11 07:33] VITALS: BP 153/85; PULSE 108; RESP 18; TEMP 36.5; O2SAT 96
[2023-08-11] MEDS: Sennosides/Docusate Sodium TABLET 1 TAB PO (08:18)
[2023-08-11] MEDS: carBAMazepine ER 200 MG TAB.ER.12H 400 MG PO ×2 (08:18→21:23)
--- NOTE | 2023-08-11 11:09 | PC.NURSE ---
Patient signed a 3 day 08/11/23, up on Wednesday08/16/23
--- NOTE | 2023-08-11 12:54 | P.PNPSI_ITS ---
Subjective Subjective Date of Service: 08/11/23 Reason For Visit: Francia Interim History: calm, cooperative. agreeable to increase clozaril to 150 mg tonight. continues to have disrupted sleep. upon meeting with [facility] staff later int he morning, more irritable and agitated, demands to sign 3-day notice. per staff, labile, guarded. hypersexual, requiring redirection. slept 6 hours. Mental Status Exam Mental Status Exam Narrative: Appearance: dressed in street clothes Behavior: open Psychomotor: PMA of pacing the halls, dancing Speech: spontaneous, incr rate, incr amount Mood: not assessed Affect: full range, hyper-intense, non-labile SI: none expressed HI: none expressed AH/VH: none expressed Delusions: none expressed Insight/judgment: poor x 2. Diagnostics Vital Signs (24Hr): Vital Signs - 24 hr 08/10/23 19:40 08/11/23 07:33 Temperature 97.7 F 97.7 F Pulse Rate 126 H 108 H Respiratory Rate 18 18 Blood Pressure 171/86 H 153/85 H Pulse Oximetry 95 96 Oxygen Delivery Method Room Air Room Air BMI result Body Mass Index 30.9 Labs 08/09/23 19:33 07/28/23 08:01 Labs: Laboratory Results - last 48 hr 08/09/23 19:33 WBC 12.4 H RBC 4.10 L Hgb 14.3 Hct 40.5 L MCV 98.8 H MCH 34.9 H MCHC 35.3 RDW 11.6 Plt Count 372 MPV 8.6 L Immature Gran % (Auto) 1.3 H Neut % (Auto) 70.1 Lymph % (Auto) 17.0 L [place] % (Auto) 9.6 Eos % (Auto) 1.5 Baso % (Auto) 0.5 Lymph # (Auto) 2.1 [place] # (Auto) 1.2 Eos # (Auto) 0.2 Baso # (Auto) 0.1 Abs Immat Gran (auto) 0.16 H Absolute Neuts (auto) 8.7 H Absolute Nucleated RBC 0.000 Nucleated RBC % (auto) 0.0 Total Bilirubin 0.2 Direct Bilirubin < 0.2 AST 29 ALT 41 H Alkaline Phosphatase 89 Total Protein 7.2 Albumin 4.0 Carbamazepine 12.3 H Medications Medications Current Medications Acetaminophen (Acetaminophen 325 Mg Tablet) 650 mg PO Q6H PRN PRN Reason: Headache/Pain Mild Scale (1-3) Last Admin: 08/08/23 16:08 Dose: 650 mg Al Hydroxide/Mg Hydroxide (Magnesium Hydrox/Alum Hydrox 30 Ml Oral.Susp) 30 ml PO Q6H PRN PRN Reason: Heartburn/Nausea Benzocaine (Throat Lozenge, Medicated Lozenge) 1 lozenge MUCOUS MEM Q1H PRN PRN Reason: Sore Throat Last Admin: 08/11/23 07:29 Dose: 1 lozenge Benzocaine (Benzocaine 20 % Oral Gel 9 Gm Tube) 1 appl MUCOUS MEM QID PRN; Protocol PRN Reason: Dental pain Last Admin: 08/04/23 22:35 Dose: 1 appl Carbamazepine (Carbamazepine Er 200 Mg Tab.Er.12h) 400 mg PO BID [facility] Last Admin: 08/11/23 08:18 Dose: 400 mg Clozapine (Clozapine 100 Mg Tablet) 100 mg PO BEDTIME FANNIE Clozapine (Clozapine 25 Mg Tablet) 50 mg PO BEDTIME FANNIE Hydroxyzine HCl (Hydroxyzine Hcl 25 Mg Tablet) 25 mg PO Q6H PRN PRN Reason: Anxiety Ibuprofen (Ibuprofen 800 Mg Tablet) 800 mg PO Q8H PRN PRN Reason: Pain, Moderate(Pain Scale 4-6) Last Admin: 08/10/23 18:44 Dose: 800 mg Lidocaine (Lidocaine 4 % Patch Adh..Patch) 1 patch TRANSDERMA DAILY PRN; Protocol PRN Reason: Pain, Moderate(Pain Scale 4-6) Last Admin: 07/30/23 03:36 Dose: 1 patch Magnesium Hydroxide (Milk Of Magnesia 30 Ml Oral.Susp) 30 ml PO DAILY PRN PRN Reason: Constipation Melatonin (Melatonin 3 Mg Tablet) 3 mg PO BEDTIME PRN PRN Reason: insomnia Nicotine (Nicotine 21 Mg Patch.Td24) 21 mg TRANSDERMA DAILY [facility] Last Admin: 08/11/23 08:22 Dose: Not Given Nicotine Polacrilex (Nicotine Polacrilex Lozenge 2 Mg Lozenge) 2 mg BUCCAL Q1H PRN PRN Reason: nicotine cravings (toothache) Last Admin: 08/10/23 21:01 Dose: 2 mg Nicotine Polacrilex (Nicotine Polacrilex 2 Mg Gum) 2 mg BUCCAL Q1H PRN PRN Reason: nicotine crave (no toothaches) Last Admin: 08/11/23 01:13 Dose: 2 mg Olanzapine (Olanzapine 5 Mg Tablet) 5 mg PO Q4H PRN PRN Reason: Anxiety Last Admin: 08/03/23 21:11 Dose: 5 mg Senna/Docusate Sodium (Sennosides/Docusate Sodium Tablet) 1 tab PO DAILY FANNIE Last Admin: 08/11/23 08:18 Dose: 1 tab Trazodone HCl (Trazodone Hcl 50 Mg Tablet) 50 mg PO BEDTIME PRN PRN Reason: insomnia Allergies Allergies Allergy/AdvReac Type Severity Reaction Status Date / Time haloperidol [From Haldol] AdvReac Severe dystonia Verified 07/27/23 14:04 Assessment & Plan Assessment & Plan (1) Schizoaffective disorder, bipolar type: Status: Acute Code(s): F25.0 - Schizoaffective disorder, bipolar type (2) Cannabis use disorder, mild, abuse: Status: Acute Code(s): F12.10 - Cannabis abuse, uncomplicated (3) Tobacco use disorder: Status: Acute Code(s): F17.200 - Nicotine dependence, unspecified, uncomplicated Plan 07/28: increase clozapine to 50 mg as of tonight. continue tegretol 200 BID. await stabilization. ativan per CIWA protocol. 07/29: scoring low on CIWA. agitated, labile. provoking fights with others, threatening to kill people. after being kicked today, put hands on peer. received IM medications and slept. did not sleep at all overnight. increase clozapine to 75 mg tonight, which pt is saying he will refuse to take. 07/31/2023: No changes to current regimen. Continue to encourage full adherence with clozapine dose 08/01: increase clozaril to 100 mg QHS. less agitated and labile than wednesday. 08/02: increase tegretol from 200 BID to 300 BID. decrease melatonin to 3 mg and trazodone to 50 mg QHS. continues less labile and agitated than on wednesday, although did punch a wall last night and threw water (which he subsequently apologized for and cleaned up). 08/03: medication restraint yesterday after appearing to attempt to get at a peer in a violent way - staff blocked movement. verbal altercation with another peer in the evening. today remains reactive and labile, perhaps less so than yesterday. taking meds. 08/05/23 Pt focused reportedly on living with uncle marked lack of insight refusing to discuss symptoms to reconsider 3 day need for hospitalization becomes easily agitated preoccupied with thoughts about how he is always being mal treated stating he would live with his uncle if discharged 08/05: medication restraint and physical restraint today upon being told of filing for commitment. pt later calmed with visitor and retracted 3-day notice. increase tegretol to 400 BID, increase clozapine to 125 QHS. 08/06: less volatile today, slept 7 hours last night. continue current mgmt. 08/07: one period of agitation overnight but calmed self. continues less volatile today. continue current mgmt. 08/08: continues more calm than prior, while still quite symptomatic. check labs tonight. 08/09 continue tx. 08/10: trending more calm, although triggered during mtg with DM to sign 3-day notice. did agree prior to that to increase clozapine dosing to 150 mg tonight. not concerned about minimally elevated tegretol level due to that medication's trait of auto-induction of accelerated metabolism. will recheck tegretol level in several days. Reason for continued inpatient stay Substantial Risk for: inability to function and rapid decompensation Time Spent With Patient Time: Total time managing care of this patient today __35__ minutes.
[2023-08-11] MEDS: Nicotine Polacrilex Lozenge 2 MG LOZENGE BUCCAL ×2 (15:52→19:22)
[2023-08-11 19:40] VITALS: BP 127/75; PULSE 89; RESP 16; TEMP 36.7; O2SAT 97
[2023-08-11] MEDS: cloZAPine 25 MG TABLET 50 MG PO (21:23)
[2023-08-11] MEDS: cloZAPine 100 MG TABLET PO (21:23)
[2023-08-12] MEDS: Ibuprofen 800 MG TABLET PO (01:03)
[2023-08-12] MEDS: Nicotine Polacrilex Lozenge 2 MG LOZENGE BUCCAL ×4 (01:42→20:39)
[2023-08-12 07:00] VITALS: BMI 32.1
[2023-08-12 08:00] VITALS: BP 126/77; PULSE 109; RESP 18; TEMP 36.9; O2SAT 95
[2023-08-12] MEDS: carBAMazepine ER 200 MG TAB.ER.12H 400 MG PO ×2 (08:38→22:07)
[2023-08-12] MEDS: Sennosides/Docusate Sodium TABLET 1 TAB PO (08:38)
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
[2023-08-12 20:02] VITALS: BP 142/86; PULSE 110; RESP 18; TEMP 36.7; O2SAT 96
[2023-08-12] MEDS: cloZAPine 100 MG TABLET PO (22:08)
[2023-08-12] MEDS: cloZAPine 25 MG TABLET 75 MG PO (22:08)
[2023-08-13] MEDS: Ibuprofen 800 MG TABLET PO ×3 (01:14→17:09)
[2023-08-13 07:10] VITALS: BP 131/80; PULSE 101; RESP 18; TEMP 36.4; O2SAT 97
[2023-08-13] MEDS: Nicotine Polacrilex Lozenge 2 MG LOZENGE BUCCAL ×4 (07:58→21:56)
[2023-08-13 08:00] VITALS: BP 131/80; PULSE 101; RESP 18; TEMP 36.4; O2SAT 92
[2023-08-13] MEDS: Sennosides/Docusate Sodium TABLET 1 TAB PO (09:47)
[2023-08-13] MEDS: Nicotine 21 MG PATCH.TD24 TRANSDERMA (09:47)
[2023-08-13] MEDS: carBAMazepine ER 200 MG TAB.ER.12H 400 MG PO ×2 (09:47→21:52)
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
[2023-08-13 20:00] VITALS: BP 151/94; PULSE 94; RESP 16; TEMP 36.6; O2SAT 96
[2023-08-13] MEDS: cloZAPine 25 MG TABLET 75 MG PO (21:51)
[2023-08-13] MEDS: cloZAPine 100 MG TABLET PO (21:51)
[2023-08-13] MEDS: Acetaminophen 325 MG TABLET 650 MG PO (21:56)
[2023-08-14] MEDS: Ibuprofen 800 MG TABLET PO ×4 (01:31→22:18)
[2023-08-14] MEDS: Benzocaine 20 % Oral Gel 9 GM TUBE 1 APPL MUCOUS MEM ×3 (01:31→19:45)
[2023-08-14 04:59] LABS: Clozapine (Clozaril) 88 mcg/L; Norclozapine 68 mcg/L (25-400)
[2023-08-14] MEDS: Nicotine Polacrilex Lozenge 2 MG LOZENGE BUCCAL ×3 (05:13→14:20)
[2023-08-14] MEDS: Acetaminophen 325 MG TABLET 650 MG PO ×3 (05:13→20:23)
[2023-08-14] MEDS: Nicotine 21 MG PATCH.TD24 TRANSDERMA (08:58)
[2023-08-14] MEDS: carBAMazepine ER 200 MG TAB.ER.12H 400 MG PO ×2 (08:59→21:50)
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
[2023-08-14 20:00] VITALS: BP 157/98; PULSE 108; RESP 16; TEMP 37; O2SAT 96
[2023-08-14] MEDS: cloZAPine 25 MG TABLET 75 MG PO (21:50)
[2023-08-14] MEDS: cloZAPine 100 MG TABLET PO (21:50)
--- NOTE | 2023-08-14 22:19 | PC.NURSE ---
Dr. Grigsby gave this nurse permission via tiger text to give patient ibuprofen 800mg 2 hours early due to constant pain of 08/08
[2023-08-15] MEDS: Acetaminophen 325 MG TABLET 650 MG PO ×2 (03:34→09:24)
[2023-08-15] MEDS: Benzocaine 20 % Oral Gel 9 GM TUBE 1 APPL MUCOUS MEM ×2 (03:34→15:42)
[2023-08-15] MEDS: Ibuprofen 800 MG TABLET PO (06:41)
[2023-08-15] MEDS: Nicotine Polacrilex Lozenge 2 MG LOZENGE BUCCAL ×4 (06:42→22:57)
[2023-08-15 08:25] VITALS: BP 178/109; PULSE 118; RESP 16; TEMP 37.1; O2SAT 96
[2023-08-15] MEDS: carBAMazepine ER 200 MG TAB.ER.12H 400 MG PO ×2 (09:12→22:05)
[2023-08-15] MEDS: Sennosides/Docusate Sodium TABLET 1 TAB PO (09:13)
--- NOTE | 2023-08-15 09:42 | HO.PSYCHPN ---
Subjective Subjective Date of Service: 08/15/23 Reason For Visit: Francia Subjective Notes: Conditional Voluntary and 3 Day Healthcare Proxy: No Guardianship: No Interim History: Patient was seen and discussed in rounds today. Records and plans were reviewed. He has been stable and only complaint is his toothache for which he has to see a dentist. He is eating and sleeping adequately. I did change his Tylenol and Motrin order to have some more frequency until he gets to a dentist. No SI. No complaints. He is aware that his 3 day expires tomorrow and would like to get discharged and. Review of Systems Review of Systems Toothache Yes all other systems are reviewed and are negative Mental Status Exam Mental Status Exam Narrative: In today's visit he is alert, pleasant and interactive. Normal speech, not pressured. Less hyperactivity present. No signs of psychosis. No SI. Cognitively he is grossly intact. Judgment is intact. Diagnostics Vital Signs (24Hr): Vital Signs - 24 hr 08/14/23 20:00 Temperature 98.6 F Pulse Rate 108 H Respiratory Rate 16 Blood Pressure 157/98 H Pulse Oximetry 96 Oxygen Delivery Method Room Air BMI result Body Mass Index 32.1 Labs 08/09/23 19:33 07/28/23 08:01 Labs: Laboratory Results - last 48 hr 08/09/23 19:33 Clozapine 88 Norclozapine 68 Medications Medications Current Medications Acetaminophen (Acetaminophen 325 Mg Tablet) 650 mg PO Q4H PRN PRN Reason: Headache/Pain Mild Scale (1-3) Last Admin: 08/15/23 09:24 Dose: 650 mg Al Hydroxide/Mg Hydroxide (Magnesium Hydrox/Alum Hydrox 30 Ml Oral.Susp) 30 ml PO Q6H PRN PRN Reason: Heartburn/Nausea Benzocaine (Throat Lozenge, Medicated Lozenge) 1 lozenge MUCOUS MEM Q1H PRN PRN Reason: Sore Throat Last Admin: 08/11/23 07:29 Dose: 1 lozenge Benzocaine (Benzocaine 20 % Oral Gel 9 Gm Tube) 1 appl MUCOUS MEM QID PRN; Protocol PRN Reason: Dental pain Last Admin: 08/15/23 03:34 Dose: 1 appl Carbamazepine (Carbamazepine Er 200 Mg Tab.Er.12h) 400 mg PO BID [facility] Last Admin: 08/15/23 09:12 Dose: 400 mg Clozapine (Clozapine 100 Mg Tablet) 100 mg PO BEDTIME [facility] Last Admin: 08/14/23 21:50 Dose: 100 mg Clozapine (Clozapine 25 Mg Tablet) 75 mg PO BEDTIME [facility] Last Admin: 08/14/23 21:50 Dose: 75 mg Hydroxyzine HCl (Hydroxyzine Hcl 25 Mg Tablet) 25 mg PO Q6H PRN PRN Reason: Anxiety Ibuprofen (Ibuprofen 600 Mg Tablet) 600 mg PO Q6H PRN PRN Reason: Pain, Moderate(Pain Scale 4-6) Lidocaine (Lidocaine 4 % Patch Adh..Patch) 1 patch TRANSDERMA DAILY PRN; Protocol PRN Reason: Pain, Moderate(Pain Scale 4-6) Last Admin: 07/30/23 03:36 Dose: 1 patch Magnesium Hydroxide (Milk Of Magnesia 30 Ml Oral.Susp) 30 ml PO DAILY PRN PRN Reason: Constipation Melatonin (Melatonin 3 Mg Tablet) 3 mg PO BEDTIME PRN PRN Reason: insomnia Nicotine (Nicotine 21 Mg Patch.Td24) 21 mg TRANSDERMA DAILY [facility] Last Admin: 08/15/23 09:14 Dose: Not Given Nicotine Polacrilex (Nicotine Polacrilex Lozenge 2 Mg Lozenge) 2 mg BUCCAL Q1H PRN PRN Reason: nicotine cravings (toothache) Last Admin: 08/15/23 06:42 Dose: 2 mg Nicotine Polacrilex (Nicotine Polacrilex 2 Mg Gum) 2 mg BUCCAL Q1H PRN PRN Reason: nicotine crave (no toothaches) Last Admin: 08/11/23 01:13 Dose: 2 mg Olanzapine (Olanzapine 5 Mg Tablet) 5 mg PO Q4H PRN PRN Reason: Anxiety Last Admin: 08/03/23 21:11 Dose: 5 mg Senna/Docusate Sodium (Sennosides/Docusate Sodium Tablet) 1 tab PO DAILY [facility] Last Admin: 08/15/23 09:13 Dose: 1 tab Trazodone HCl (Trazodone Hcl 50 Mg Tablet) 50 mg PO BEDTIME PRN PRN Reason: insomnia Allergies Allergies Allergy/AdvReac Type Severity Reaction Status Date / Time haloperidol [From Haldol] AdvReac Severe dystonia Verified 07/27/23 14:04 Assessment & Plan Assessment & Plan (1) Schizoaffective disorder, bipolar type: Status: Acute Code(s): F25.0 - Schizoaffective disorder, bipolar type (2) Cannabis use disorder, mild, abuse: Status: Acute Code(s): F12.10 - Cannabis abuse, uncomplicated (3) Tobacco use disorder: Status: Acute Code(s): F17.200 - Nicotine dependence, unspecified, uncomplicated Plan 07/28: increase clozapine to 50 mg as of tonight. continue tegretol 200 BID. await stabilization. ativan per CIWA protocol. 07/29: scoring low on CIWA. agitated, labile. provoking fights with others, threatening to kill people. after being kicked today, put hands on peer. received IM medications and slept. did not sleep at all overnight. increase clozapine to 75 mg tonight, which pt is saying he will refuse to take. 07/31/2023: No changes to current regimen. Continue to encourage full adherence with clozapine dose 08/01: increase clozaril to 100 mg QHS. less agitated and labile than wednesday. 08/02: increase tegretol from 200 BID to 300 BID. decrease melatonin to 3 mg and trazodone to 50 mg QHS. continues less labile and agitated than on wednesday, although did punch a wall last night and threw water (which he subsequently apologized for and cleaned up). 08/03: medication restraint yesterday after appearing to attempt to get at a peer in a violent way - staff blocked movement. verbal altercation with another peer in the evening. today remains reactive and labile, perhaps less so than yesterday. taking meds. 08/05/23 Pt focused reportedly on living with uncle marked lack of insight refusing to discuss symptoms to reconsider 3 day need for hospitalization becomes easily agitated preoccupied with thoughts about how he is always being mal treated stating he would live with his uncle if discharged 08/05: medication restraint and physical restraint today upon being told of filing for commitment. pt later calmed with visitor and retracted 3-day notice. increase tegretol to 400 BID, increase clozapine to 125 QHS. 08/06: less volatile today, slept 7 hours last night. continue current mgmt. 08/07: one period of agitation overnight but calmed self. continues less volatile today. continue current mgmt. 08/08: continues more calm than prior, while still quite symptomatic. check labs tonight. 08/09 continue tx. 08/10: trending more calm, although triggered during mtg with DM to sign 3-day notice. did agree prior to that to increase clozapine dosing to 150 mg tonight. not concerned about minimally elevated tegretol level due to that medication's trait of auto-induction of accelerated metabolism. will recheck tegretol level in several days. 08/11: more irritable and agitated today, demanding to leave on 3-day expiry. amenable to medication changes. informed of restraining order preventing him from seeing his daughter. increase clozapine to 175 mg tonight. 08/12: sleeping late morning, allowed to rest as more therapeutic than awakening manic pt. continue current mgmt. 08/13: Continue current regimen and plans 08/14: Continue current plans and regimen. Reason for continued inpatient stay Substantial Risk for: rapid decompensation Time Spent With Patient Time: Total time managing care of this patient today ____ minutes.
[2023-08-15] MEDS: Ibuprofen 600 MG TABLET PO ×2 (10:42→21:46)
[2023-08-15 10:43] VITALS: BP 161/91
[2023-08-15] MEDS: lisinopriL 10 MG TABLET PO (10:43)
[2023-08-15] MEDS: Butalb/Acetamin/Caff 50/325/40 TABLET 1 TAB PO ×2 (12:14→17:43)
[2023-08-15 20:00] VITALS: BP 119/66; PULSE 100; RESP 16; TEMP 37.2; O2SAT 96
[2023-08-15] MEDS: cloZAPine 25 MG TABLET 75 MG PO (22:05)
[2023-08-15] MEDS: cloZAPine 100 MG TABLET PO (22:06)
[2023-08-15 22:30] VITALS: TEMP 37.1
[2023-08-16] MEDS: Nicotine Polacrilex Lozenge 2 MG LOZENGE BUCCAL ×2 (03:11→13:47)
[2023-08-16] MEDS: Butalb/Acetamin/Caff 50/325/40 TABLET 1 TAB PO (03:11)
[2023-08-16] MEDS: Ibuprofen 600 MG TABLET PO (05:18)
[2023-08-16 07:55] VITALS: BP 138/73; PULSE 116; RESP 14; TEMP 36.6; O2SAT 97
[2023-08-16 08:00] VITALS: BP 138/73; PULSE 116; RESP 18; TEMP 36.6; O2SAT 97
[2023-08-16 09:16] LABS: Neut%MD 72.6 %; Neutrophils Absolute Auto 8.8 x10*3/uL (2.0-8.3); WBCANC 12.1 X10*3/uL
[2023-08-16 09:47] VITALS: BP 183/73
[2023-08-16] MEDS: lisinopriL 10 MG TABLET PO (09:47)
[2023-08-16] MEDS: carBAMazepine ER 200 MG TAB.ER.12H 400 MG PO ×2 (09:47→22:23)
[2023-08-16] MEDS: Sennosides/Docusate Sodium TABLET 1 TAB PO (09:47)
[2023-08-16 10:14] VITALS: BP 119/71; PULSE 88
[2023-08-16] MEDS: LORazepam 2 MG/ML VIAL IM (11:42)
[2023-08-16] MEDS: OLANZapine 10 MG VIAL IM (11:42)
--- NOTE | 2023-08-16 13:31 | PC.NURSE ---
Pt was visible pacing in the am. Pt was medication compliant. Pt met BALTAZAR and to discuss his 3 day that was up today. Pt was informed he wasn't going home and they were filing on him. Pt began yelling/swearing loudly in the hallway, throwing juices against wall and floor. Pt walked to room, making verbal threats. Staff attempted to calm patient, offering 1:1, shower, and medication, but pt unable to calm. Pt wiped everything off of his dresser, flipped mattress and threw more objects at the wall. Pt then kicked and punched ken while yelling verbal threats. Security called, the restraint retrieved and brought to the room. Pt seen the chair and said, good, there's the chair, I'll sit in that. Pt threw self in the chair. MD was present for behavior and ordered medication restraint, pt provided, Olanzapine 10mg IM and Ativan 2mg IM with good effect. Pt calmed and was released from restraint after 35 minutes. Pt offered and accepted a shower. Pt is calm watching TV with peer at this time.
--- NOTE | 2023-08-16 14:00 | HO.PSYCHPN ---
Subjective Subjective Date of Service: 08/16/23 Reason For Visit: Francia Interim History: seen with medical student magi. initially calm and cooperative, but once being told he would not discharge today became labile, angry, threatening, and destructive. required IM medication, hold, restraint chair. per staff, 3-day up today. dental pain. friendly, cooperative. peer altercation - he was confronted by peer. managed to de-escalate. Mental Status Exam Mental Status Exam Narrative: Appearance: dressed in street clothes Behavior: agitated Psychomotor: PMA of punching his palm, yelling, throwing drinks, trashing his room Speech: incr rate and amount, loudness Mood: not assessed Affect: full range, hyper-intense, labile SI: none expressed HI: threatening to punch anyone who messes with him in the face AH/VH: none expressed Insight/judgment: poor x 2. Diagnostics Vital Signs (24Hr): Vital Signs - 24 hr 08/15/23 20:00 08/15/23 22:30 08/16/23 07:55 Temperature 99.0 F 98.8 F 97.8 F Pulse Rate 100 116 H Respiratory Rate 16 14 Blood Pressure 119/66 138/73 Pulse Oximetry 96 97 Oxygen Delivery Method Room Air Room Air 08/16/23 08:00 08/16/23 09:47 08/16/23 10:14 Temperature 97.8 F Pulse Rate 116 H 88 Respiratory Rate 18 Blood Pressure 138/73 183/73 H 119/71 Pulse Oximetry 97 Oxygen Delivery Method Room Air BMI result Body Mass Index 32.1 Labs 08/09/23 19:33 07/28/23 08:01 Labs: Laboratory Results - last 48 hr 08/16/23 08:16 Absolute Neuts (auto) 8.8 H Medications Medications Current Medications Acetaminophen (Acetaminophen 325 Mg Tablet) 650 mg PO Q4H PRN PRN Reason: Headache/Pain Mild Scale (1-3) Last Admin: 08/15/23 09:24 Dose: 650 mg Acetaminophen/Butalbital/Caffeine (Butalb/Acetamin/Caff 50/325/40 Tablet) 1 tab PO Q4H PRN PRN Reason: Pain, Moderate(Pain Scale 4-6) Last Admin: 08/16/23 03:11 Dose: 1 tab Al Hydroxide/Mg Hydroxide (Magnesium Hydrox/Alum Hydrox 30 Ml Oral.Susp) 30 ml PO Q6H PRN PRN Reason: Heartburn/Nausea Benzocaine (Throat Lozenge, Medicated Lozenge) 1 lozenge MUCOUS MEM Q1H PRN PRN Reason: Sore Throat Last Admin: 08/11/23 07:29 Dose: 1 lozenge Benzocaine (Benzocaine 20 % Oral Gel 9 Gm Tube) 1 appl MUCOUS MEM QID PRN; Protocol PRN Reason: Dental pain Last Admin: 08/15/23 15:42 Dose: 1 appl Carbamazepine (Carbamazepine Er 200 Mg Tab.Er.12h) 400 mg PO BID [facility] Last Admin: 08/16/23 09:47 Dose: 400 mg Clozapine (Clozapine 100 Mg Tablet) 100 mg PO BEDTIME [facility] Last Admin: 08/15/23 22:06 Dose: 100 mg Clozapine (Clozapine 25 Mg Tablet) 75 mg PO BEDTIME [facility] Last Admin: 08/15/23 22:05 Dose: 75 mg Hydroxyzine HCl (Hydroxyzine Hcl 25 Mg Tablet) 25 mg PO Q6H PRN PRN Reason: Anxiety Ibuprofen (Ibuprofen 600 Mg Tablet) 600 mg PO Q6H PRN PRN Reason: Pain, Moderate(Pain Scale 4-6) Last Admin: 08/16/23 05:18 Dose: 600 mg Lidocaine (Lidocaine 4 % Patch Adh..Patch) 1 patch TRANSDERMA DAILY PRN; Protocol PRN Reason: Pain, Moderate(Pain Scale 4-6) Last Admin: 07/30/23 03:36 Dose: 1 patch Lisinopril (Lisinopril 10 Mg Tablet) 10 mg PO DAILY [facility]; Protocol Last Admin: 08/16/23 09:47 Dose: 10 mg Magnesium Hydroxide (Milk Of Magnesia 30 Ml Oral.Susp) 30 ml PO DAILY PRN PRN Reason: Constipation Melatonin (Melatonin 3 Mg Tablet) 3 mg PO BEDTIME PRN PRN Reason: insomnia Nicotine (Nicotine 21 Mg Patch.Td24) 21 mg TRANSDERMA DAILY [facility] Last Admin: 08/16/23 09:49 Dose: Not Given Nicotine Polacrilex (Nicotine Polacrilex Lozenge 2 Mg Lozenge) 2 mg BUCCAL Q1H PRN PRN Reason: nicotine cravings (toothache) Last Admin: 08/16/23 13:47 Dose: 2 mg Nicotine Polacrilex (Nicotine Polacrilex 2 Mg Gum) 2 mg BUCCAL Q1H PRN PRN Reason: nicotine crave (no toothaches) Last Admin: 08/11/23 01:13 Dose: 2 mg Olanzapine (Olanzapine 5 Mg Tablet) 5 mg PO Q4H PRN PRN Reason: Anxiety Last Admin: 08/03/23 21:11 Dose: 5 mg Senna/Docusate Sodium (Sennosides/Docusate Sodium Tablet) 1 tab PO DAILY [facility] Last Admin: 08/16/23 09:47 Dose: 1 tab Trazodone HCl (Trazodone Hcl 50 Mg Tablet) 50 mg PO BEDTIME PRN PRN Reason: insomnia Allergies Allergies Allergy/AdvReac Type Severity Reaction Status Date / Time haloperidol [From Haldol] AdvReac Severe dystonia Verified 07/27/23 14:04 Assessment & Plan Assessment & Plan (1) Schizoaffective disorder, bipolar type: Status: Acute Code(s): F25.0 - Schizoaffective disorder, bipolar type (2) Cannabis use disorder, mild, abuse: Status: Acute Code(s): F12.10 - Cannabis abuse, uncomplicated (3) Tobacco use disorder: Status: Acute Code(s): F17.200 - Nicotine dependence, unspecified, uncomplicated Plan 07/28: increase clozapine to 50 mg as of tonight. continue tegretol 200 BID. await stabilization. ativan per [facility] protocol. 07/29: scoring low on CIWA. agitated, labile. provoking fights with others, threatening to kill people. after being kicked today, put hands on peer. received IM medications and slept. did not sleep at all overnight. increase clozapine to 75 mg tonight, which pt is saying he will refuse to take. 07/31/2023: No changes to current regimen. Continue to encourage full adherence with clozapine dose 08/01: increase clozaril to 100 mg QHS. less agitated and labile than wednesday. 08/02: increase tegretol from 200 BID to 300 BID. decrease melatonin to 3 mg and trazodone to 50 mg QHS. continues less labile and agitated than on wednesday, although did punch a wall last night and threw water (which he subsequently apologized for and cleaned up). 08/03: medication restraint yesterday after appearing to attempt to get at a peer in a violent way - staff blocked movement. verbal altercation with another peer in the evening. today remains reactive and labile, perhaps less so than yesterday. taking meds. 08/05/23 Pt focused reportedly on living with uncle marked lack of insight refusing to discuss symptoms to reconsider 3 day need for hospitalization becomes easily agitated preoccupied with thoughts about how he is always being mal treated stating he would live with his uncle if discharged 08/05: medication restraint and physical restraint today upon being told of filing for commitment. pt later calmed with visitor and retracted 3-day notice. increase tegretol to 400 BID, increase clozapine to 125 QHS. 08/06: less volatile today, slept 7 hours last night. continue current mgmt. 08/07: one period of agitation overnight but calmed self. continues less volatile today. continue current mgmt. 08/08: continues more calm than prior, while still quite symptomatic. check labs tonight. 08/09 continue tx. 08/10: trending more calm, although triggered during mtg with [facility] to sign 3-day notice. did agree prior to that to increase clozapine dosing to 150 mg tonight. not concerned about minimally elevated tegretol level due to that medication's trait of auto-induction of accelerated metabolism. will recheck tegretol level in several days. 08/11: more irritable and agitated today, demanding to leave on 3-day expiry. amenable to medication changes. informed of restraining order preventing him from seeing his daughter. increase clozapine to 175 mg tonight. 08/12: sleeping late morning, allowed to rest as more therapeutic than awakening manic pt. continue current mgmt. 08/13: Continue current regimen and plans 08/14: Continue current plans and regimen. 08/15: calm until being told no for discharge today, when he became dysregulated, yelling, threatening, and then throwing drinks in the [place] and finally trashing his room. got restrained with chair and IM zyprexa 10 and ativan 2. commitment paperwork filed. Reason for continued inpatient stay Substantial Risk for: harm to self, harm to others and inability to function Time Spent With Patient Time: Total time managing care of this patient today __35__ minutes.
[2023-08-16 20:00] VITALS: RESP 18
[2023-08-16] MEDS: cloZAPine 100 MG TABLET PO (22:23)
[2023-08-16] MEDS: cloZAPine 25 MG TABLET 75 MG PO (22:24)
[2023-08-17] MEDS: Throat Lozenge, Medicated LOZENGE 1 LOZENGE MUCOUS MEM (02:59)
[2023-08-17] MEDS: Butalb/Acetamin/Caff 50/325/40 TABLET 1 TAB PO (03:26)
[2023-08-17] MEDS: Nicotine Polacrilex Lozenge 2 MG LOZENGE BUCCAL ×5 (03:26→21:30)
[2023-08-17 09:04] VITALS: BP 141/83; PULSE 123; RESP 16; O2SAT 97
[2023-08-17 09:07] VITALS: BP 141/83
[2023-08-17] MEDS: carBAMazepine ER 200 MG TAB.ER.12H 400 MG PO ×2 (09:07→21:29)
[2023-08-17] MEDS: lisinopriL 10 MG TABLET PO (09:07)
--- NOTE | 2023-08-17 14:00 | HO.PSYCHPN ---
Subjective Subjective Date of Service: 08/17/23 Reason For Visit: Francia Interim History: calm, cooperative. rescinded 3-day notice. minor lability re being told he will stay likely past next wednesday. later apologizes for his behavior and acknowledges we are making him do what needs to be done even though he doesn't like it. per staff, taking meds. after restraint yesterday morning, calm and cooperative. slept well overnight. Mental Status Exam Mental Status Exam Narrative: Appearance: dressed in street clothes Behavior: cooperative Psychomotor: PMA of pacing the halls, no dancing Speech: spontaneous, incr rate, incr amount Mood: not assessed Affect: constricted, normo-intense, min-labile SI: none expressed HI: none expressed AH/VH: none expressed Delusions: none expressed Insight/judgment: poor x 2. Diagnostics Vital Signs (24Hr): Vital Signs - 24 hr 08/16/23 20:00 08/17/23 09:04 08/17/23 09:07 Pulse Rate 123 H Respiratory Rate 18 16 Blood Pressure 141/83 H 141/83 H Pulse Oximetry 97 Oxygen Delivery Method Room Air BMI result Body Mass Index 32.1 Labs 08/09/23 19:33 07/28/23 08:01 Labs: Laboratory Results - last 48 hr 08/16/23 08:16 Absolute Neuts (auto) 8.8 H Medications Medications Current Medications Acetaminophen (Acetaminophen 325 Mg Tablet) 650 mg PO Q4H PRN PRN Reason: Headache/Pain Mild Scale (1-3) Last Admin: 08/15/23 09:24 Dose: 650 mg Acetaminophen/Butalbital/Caffeine (Butalb/Acetamin/Caff 50/325/40 Tablet) 1 tab PO Q4H PRN PRN Reason: Pain, Moderate(Pain Scale 4-6) Last Admin: 08/17/23 03:26 Dose: 1 tab Al Hydroxide/Mg Hydroxide (Magnesium Hydrox/Alum Hydrox 30 Ml Oral.Susp) 30 ml PO Q6H PRN PRN Reason: Heartburn/Nausea Benzocaine (Throat Lozenge, Medicated Lozenge) 1 lozenge MUCOUS MEM Q1H PRN PRN Reason: Sore Throat Last Admin: 08/17/23 02:59 Dose: 1 lozenge Benzocaine (Benzocaine 20 % Oral Gel 9 Gm Tube) 1 appl MUCOUS MEM QID PRN; Protocol PRN Reason: Dental pain Last Admin: 08/15/23 15:42 Dose: 1 appl Carbamazepine (Carbamazepine Er 200 Mg Tab.Er.12h) 400 mg PO BID [facility] Last Admin: 08/17/23 09:07 Dose: 400 mg Clozapine (Clozapine 100 Mg Tablet) 100 mg PO BEDTIME [facility] Last Admin: 08/16/23 22:23 Dose: 100 mg Clozapine (Clozapine 100 Mg Tablet) 100 mg PO BEDTIME [facility] Hydroxyzine HCl (Hydroxyzine Hcl 25 Mg Tablet) 25 mg PO Q6H PRN PRN Reason: Anxiety Ibuprofen (Ibuprofen 600 Mg Tablet) 600 mg PO Q6H PRN PRN Reason: Pain, Moderate(Pain Scale 4-6) Last Admin: 08/16/23 05:18 Dose: 600 mg Lidocaine (Lidocaine 4 % Patch Adh..Patch) 1 patch TRANSDERMA DAILY PRN; Protocol PRN Reason: Pain, Moderate(Pain Scale 4-6) Last Admin: 07/30/23 03:36 Dose: 1 patch Lisinopril (Lisinopril 10 Mg Tablet) 10 mg PO DAILY [facility]; Protocol Last Admin: 08/17/23 09:07 Dose: 10 mg Magnesium Hydroxide (Milk Of Magnesia 30 Ml Oral.Susp) 30 ml PO DAILY PRN PRN Reason: Constipation Melatonin (Melatonin 3 Mg Tablet) 3 mg PO BEDTIME PRN PRN Reason: insomnia Nicotine (Nicotine 21 Mg Patch.Td24) 21 mg TRANSDERMA DAILY [facility] Last Admin: 08/17/23 09:31 Dose: Not Given Nicotine Polacrilex (Nicotine Polacrilex Lozenge 2 Mg Lozenge) 2 mg BUCCAL Q1H PRN PRN Reason: nicotine cravings (toothache) Last Admin: 08/17/23 07:47 Dose: 2 mg Nicotine Polacrilex (Nicotine Polacrilex 2 Mg Gum) 2 mg BUCCAL Q1H PRN PRN Reason: nicotine crave (no toothaches) Last Admin: 08/11/23 01:13 Dose: 2 mg Olanzapine (Olanzapine 5 Mg Tablet) 5 mg PO Q4H PRN PRN Reason: Anxiety Last Admin: 08/03/23 21:11 Dose: 5 mg Senna/Docusate Sodium (Sennosides/Docusate Sodium Tablet) 1 tab PO DAILY [facility] Last Admin: 08/17/23 09:48 Dose: Not Given Trazodone HCl (Trazodone Hcl 50 Mg Tablet) 50 mg PO BEDTIME PRN PRN Reason: insomnia Allergies Allergies Allergy/AdvReac Type Severity Reaction Status Date / Time haloperidol [From Haldol] AdvReac Severe dystonia Verified 07/27/23 14:04 Assessment & Plan Assessment & Plan (1) Schizoaffective disorder, bipolar type: Status: Acute Code(s): F25.0 - Schizoaffective disorder, bipolar type (2) Cannabis use disorder, mild, abuse: Status: Acute Code(s): F12.10 - Cannabis abuse, uncomplicated (3) Tobacco use disorder: Status: Acute Code(s): F17.200 - Nicotine dependence, unspecified, uncomplicated Plan 07/28: increase clozapine to 50 mg as of tonight. continue tegretol 200 BID. await stabilization. ativan per CIWA protocol. 07/29: scoring low on CIWA. agitated, labile. provoking fights with others, threatening to kill people. after being kicked today, put hands on peer. received IM medications and slept. did not sleep at all overnight. increase clozapine to 75 mg tonight, which pt is saying he will refuse to take. 07/31/2023: No changes to current regimen. Continue to encourage full adherence with clozapine dose 08/01: increase clozaril to 100 mg QHS. less agitated and labile than wednesday. 08/02: increase tegretol from 200 BID to 300 BID. decrease melatonin to 3 mg and trazodone to 50 mg QHS. continues less labile and agitated than on wednesday, although did punch a wall last night and threw water (which he subsequently apologized for and cleaned up). 08/03: medication restraint yesterday after appearing to attempt to get at a peer in a violent way - staff blocked movement. verbal altercation with another peer in the evening. today remains reactive and labile, perhaps less so than yesterday. taking meds. 08/05/23 Pt focused reportedly on living with uncle marked lack of insight refusing to discuss symptoms to reconsider 3 day need for hospitalization becomes easily agitated preoccupied with thoughts about how he is always being mal treated stating he would live with his uncle if discharged 08/05: medication restraint and physical restraint today upon being told of filing for commitment. pt later calmed with visitor and retracted 3-day notice. increase tegretol to 400 BID, increase clozapine to 125 QHS. 08/06: less volatile today, slept 7 hours last night. continue current mgmt. 08/07: one period of agitation overnight but calmed self. continues less volatile today. continue current mgmt. 08/08: continues more calm than prior, while still quite symptomatic. check labs tonight. 08/09 continue tx. 08/10: trending more calm, although triggered during mtg with DM to sign 3-day notice. did agree prior to that to increase clozapine dosing to 150 mg tonight. not concerned about minimally elevated tegretol level due to that medication's trait of auto-induction of accelerated metabolism. will recheck tegretol level in several days. 08/11: more irritable and agitated today, demanding to leave on 3-day expiry. amenable to medication changes. informed of restraining order preventing him from seeing his daughter. increase clozapine to 175 mg tonight. 08/12: sleeping late morning, allowed to rest as more therapeutic than awakening manic pt. continue current mgmt. 08/13: Continue current regimen and plans 08/14: Continue current plans and regimen. 08/15: calm until being told no for discharge today, when he became dysregulated, yelling, threatening, and then throwing drinks in the [place] and finally trashing his room. got restrained with chair and IM zyprexa 10 and ativan 2. commitment paperwork filed. 08/16: rescinded 3-day notice, back on CV. calm, cooperative. minimal reactivity. apologetic after minor outburst. continue current mgmt. Reason for continued inpatient stay Substantial Risk for: inability to function and rapid decompensation Time Spent With Patient Time: Total time managing care of this patient today _35___ minutes.
[2023-08-17 14:59] LABS: Alanine Aminotransferase 36 U/L (0-40); Albumin Level 4.1 g/dL (3.5-5.0); Alkaline Phosphatase 92 U/L (39-117); Aspartate Amino Transferase 31 U/L (5-37); Bilirubin Direct < 0.1 mg/dL (0.0-0.5)
[2023-08-17 15:10] LABS: Bilirubin Total 0.3 mg/dL (0.0-1.0)
--- NOTE | 2023-08-17 15:33 | PM.EVENT ---
Event Note Date of Service: 08/17/23 Event Note: Pt with intermittent elevations dating back to 2021 with recent WBC 13.5 on 07/10, 11.1 on 07/27, 12.4 on 08/08. He has a chronic macrocytic anemia and chronic elevations in LFTs. Hep b/c ab negative. He has no complaints. Has a chronic tachycardia, very unlikely r/t acute infection. Would recommend outpt work up with PCP with further specialist referral at PCP discretion. Should patient develop fevers or any acute complaints, please do not hesitate to reach out Time Spent With Patient Time: Total time managing care of this patient today ____ minutes.
[2023-08-17] MEDS: Ibuprofen 600 MG TABLET PO (19:13)
[2023-08-17 19:40] VITALS: BP 134/79; PULSE 127; RESP 16; TEMP 37.1; O2SAT 94
[2023-08-17 20:09] LABS: MANUAL DIFF FLAG NO
[2023-08-17 20:23] LABS: Basophils Absolute Auto 0.1 X10*3/uL (0.0-0.2); Basophils Percent Auto 0.4 % (0-2); Eosinophils Absolute Auto 0.1 X10*3/uL (0.0-0.4); Hematocrit 42.7 % (42.0-52.0); Hemoglobin 14.8 g/dl (14.0-18.0); Imm Gran Abs Auto 0.41 X10*3/uL (0.00-0.03); Lymphocytes Percent Auto 14.9 % (20-40); Mean Corpuscular HGB Conc 34.7 g/dl (31.0-36.0); Mean Corpuscular Hemoglobin 34.3 pg (27.0-33.0); Mean Corpuscular Volume 98.8 fL (80.0-98.0); Mean Platelet Volume 8.5 fL (9.4-12.4); Monocytes Absolute Auto 0.9 X10*3/uL (0.1-1.2); Monocytes Percent Auto 6.7 % (2-11); Platelet Count 393 X10*3/uL (160-400); Red Blood Count 4.32 X10*6/uL (4.60-5.80); Red Cell Distribution Width 11.4 % (11.0-16.0); White Blood Count 13.5 X10*3/uL (4.8-10.8)
[2023-08-17 20:24] LABS: Carbamazepine Tegretol 12.2 mcg/mL (5.0-12.0)
[2023-08-17 20:45] LABS: TSH reflex Free T4 2.09 uIU/mL (0.32-4.0)
[2023-08-17] MEDS: cloZAPine 100 MG TABLET PO ×2 (21:30)
[2023-08-18] MEDS: Throat Lozenge, Medicated LOZENGE 1 LOZENGE MUCOUS MEM ×2 (02:50→10:52)
[2023-08-18] MEDS: Nicotine Polacrilex Lozenge 2 MG LOZENGE BUCCAL ×4 (03:14→22:41)
[2023-08-18 03:57] LABS: Syphilis Screen Nonreactive (Nonreactive)
[2023-08-18 04:29] LABS: HIV AB/AG Nonreactive (Nonreactive); HIV Num 1 0.16 S/CO (0.00-0.99)
[2023-08-18 07:38] VITALS: BP 118/76; PULSE 109; RESP 16; TEMP 37.1; O2SAT 98
[2023-08-18 09:14] VITALS: BP 118/76
[2023-08-18] MEDS: lisinopriL 10 MG TABLET PO (09:14)
[2023-08-18] MEDS: carBAMazepine ER 200 MG TAB.ER.12H 400 MG PO ×2 (09:14→21:48)
[2023-08-18] MEDS: Sennosides/Docusate Sodium TABLET 1 TAB PO (09:14)
[2023-08-18] MEDS: Acetaminophen 325 MG TABLET 650 MG PO ×2 (09:14→17:42)
[2023-08-18] MEDS: Ibuprofen 600 MG TABLET PO (15:40)
--- NOTE | 2023-08-18 16:03 | HO.PSYCHPN ---
Subjective Subjective Date of Service: 08/18/23 Reason For Visit: Francia Interim History: calm, cooperative. no lability, agitation, or aggression. discussed tachycardia, pt reports it does not bother him and he declines beta heide. per staff, labile but in control. HR 123. tearful eves. intrusive. P 127 eves. up at 0200, slept about 6 hours. Mental Status Exam Mental Status Exam Narrative: Appearance: dressed in street clothes Behavior: cooperative Psychomotor: some dancing. no PMA. Speech: spontaneous, incr rate, nml amount Mood: not assessed Affect: constricted, normo-intense, non-labile SI: none expressed HI: none expressed AH/VH: none expressed Delusions: none expressed Insight/judgment: poor x 2. Diagnostics Vital Signs (24Hr): Vital Signs - 24 hr 08/17/23 19:40 08/18/23 07:38 08/18/23 09:14 Temperature 98.7 F 98.8 F Pulse Rate 127 H 109 H Respiratory Rate 16 16 Blood Pressure 134/79 118/76 118/76 Pulse Oximetry 94 98 Oxygen Delivery Method Room Air Room Air BMI result Body Mass Index 32.1 Labs 08/17/23 20:02 07/28/23 08:01 Labs: Laboratory Results - last 48 hr 08/17/23 08/17/23 14:09 20:02 WBC 13.5 H RBC 4.32 L Hgb 14.8 Hct 42.7 MCV 98.8 H MCH 34.3 H MCHC 34.7 RDW 11.4 Plt Count 393 MPV 8.5 L Immature Gran % (Auto) 3.0 H Neut % (Auto) 74.0 H Lymph % (Auto) 14.9 L Dolores % (Auto) 6.7 Eos % (Auto) 1.0 Baso % (Auto) 0.4 Lymph # (Auto) 2.0 Dolores # (Auto) 0.9 Eos # (Auto) 0.1 Baso # (Auto) 0.1 Abs Immat Gran (auto) 0.41 H Absolute Neuts (auto) 10.0 H Absolute Nucleated RBC 0.000 Nucleated RBC % (auto) 0.0 Total Bilirubin 0.3 Direct Bilirubin < 0.1 AST 31 ALT 36 Alkaline Phosphatase 92 Total Protein 8.0 Albumin 4.1 TSH 2.09 Carbamazepine 12.2 H T.pallidum Ab (EIA) Nonreactive HIV 1&2 Ab/P24 Ag 4thGn Nonreactive Medications Medications Current Medications Acetaminophen (Acetaminophen 325 Mg Tablet) 650 mg PO Q4H PRN PRN Reason: Headache/Pain Mild Scale (1-3) Last Admin: 08/18/23 09:14 Dose: 650 mg Acetaminophen/Butalbital/Caffeine (Butalb/Acetamin/Caff 50/325/40 Tablet) 1 tab PO Q4H PRN PRN Reason: Pain, Moderate(Pain Scale 4-6) Last Admin: 08/17/23 03:26 Dose: 1 tab Al Hydroxide/Mg Hydroxide (Magnesium Hydrox/Alum Hydrox 30 Ml Oral.Susp) 30 ml PO Q6H PRN PRN Reason: Heartburn/Nausea Benzocaine (Throat Lozenge, Medicated Lozenge) 1 lozenge MUCOUS MEM Q1H PRN PRN Reason: Sore Throat Last Admin: 08/18/23 10:52 Dose: 1 lozenge Benzocaine (Benzocaine 20 % Oral Gel 9 Gm Tube) 1 appl MUCOUS MEM QID PRN; Protocol PRN Reason: Dental pain Last Admin: 08/15/23 15:42 Dose: 1 appl Carbamazepine (Carbamazepine Er 200 Mg Tab.Er.12h) 400 mg PO BID [facility] Last Admin: 08/18/23 09:14 Dose: 400 mg Clozapine (Clozapine 100 Mg Tablet) 100 mg PO BEDTIME [facility] Last Admin: 08/17/23 21:30 Dose: 100 mg Clozapine (Clozapine 100 Mg Tablet) 100 mg PO BEDTIME [facility] Last Admin: 08/17/23 21:30 Dose: 100 mg Hydroxyzine HCl (Hydroxyzine Hcl 25 Mg Tablet) 25 mg PO Q6H PRN PRN Reason: Anxiety Ibuprofen (Ibuprofen 600 Mg Tablet) 600 mg PO Q6H PRN PRN Reason: Pain, Moderate(Pain Scale 4-6) Last Admin: 08/18/23 15:40 Dose: 600 mg Lidocaine (Lidocaine 4 % Patch Adh..Patch) 1 patch TRANSDERMA DAILY PRN; Protocol PRN Reason: Pain, Moderate(Pain Scale 4-6) Last Admin: 07/30/23 03:36 Dose: 1 patch Lisinopril (Lisinopril 10 Mg Tablet) 10 mg PO DAILY [facility]; Protocol Last Admin: 08/18/23 09:14 Dose: 10 mg Magnesium Hydroxide (Milk Of Magnesia 30 Ml Oral.Susp) 30 ml PO DAILY PRN PRN Reason: Constipation Melatonin (Melatonin 3 Mg Tablet) 3 mg PO BEDTIME PRN PRN Reason: insomnia Nicotine (Nicotine 21 Mg Patch.Td24) 21 mg TRANSDERMA DAILY [facility] Last Admin: 08/18/23 09:15 Dose: Not Given Nicotine Polacrilex (Nicotine Polacrilex Lozenge 2 Mg Lozenge) 2 mg BUCCAL Q1H PRN PRN Reason: nicotine cravings (toothache) Last Admin: 08/18/23 15:40 Dose: 2 mg Nicotine Polacrilex (Nicotine Polacrilex 2 Mg Gum) 2 mg BUCCAL Q1H PRN PRN Reason: nicotine crave (no toothaches) Last Admin: 08/11/23 01:13 Dose: 2 mg Olanzapine (Olanzapine 5 Mg Tablet) 5 mg PO Q4H PRN PRN Reason: Anxiety Last Admin: 08/03/23 21:11 Dose: 5 mg Senna/Docusate Sodium (Sennosides/Docusate Sodium Tablet) 1 tab PO DAILY [facility] Last Admin: 08/18/23 09:14 Dose: 1 tab Trazodone HCl (Trazodone Hcl 50 Mg Tablet) 50 mg PO BEDTIME PRN PRN Reason: insomnia Allergies Allergies Allergy/AdvReac Type Severity Reaction Status Date / Time haloperidol [From Haldol] AdvReac Severe dystonia Verified 07/27/23 14:04 Assessment & Plan Assessment & Plan (1) Schizoaffective disorder, bipolar type: Status: Acute Code(s): F25.0 - Schizoaffective disorder, bipolar type (2) Cannabis use disorder, mild, abuse: Status: Acute Code(s): F12.10 - Cannabis abuse, uncomplicated (3) Tobacco use disorder: Status: Acute Code(s): F17.200 - Nicotine dependence, unspecified, uncomplicated Plan 07/28: increase clozapine to 50 mg as of tonight. continue tegretol 200 BID. await stabilization. ativan per [facility]WA protocol. 07/29: scoring low on CIWA. agitated, labile. provoking fights with others, threatening to kill people. after being kicked today, put hands on peer. received IM medications and slept. did not sleep at all overnight. increase clozapine to 75 mg tonight, which pt is saying he will refuse to take. 07/31/2023: No changes to current regimen. Continue to encourage full adherence with clozapine dose 08/01: increase clozaril to 100 mg QHS. less agitated and labile than wednesday. 08/02: increase tegretol from 200 BID to 300 BID. decrease melatonin to 3 mg and trazodone to 50 mg QHS. continues less labile and agitated than on wednesday, although did punch a wall last night and threw water (which he subsequently apologized for and cleaned up). 08/03: medication restraint yesterday after appearing to attempt to get at a peer in a violent way - staff blocked movement. verbal altercation with another peer in the evening. today remains reactive and labile, perhaps less so than yesterday. taking meds. 08/05/23 Pt focused reportedly on living with uncle marked lack of insight refusing to discuss symptoms to reconsider 3 day need for hospitalization becomes easily agitated preoccupied with thoughts about how he is always being mal treated stating he would live with his uncle if discharged 08/05: medication restraint and physical restraint today upon being told of filing for commitment. pt later calmed with visitor and retracted 3-day notice. increase tegretol to 400 BID, increase clozapine to 125 QHS. 08/06: less volatile today, slept 7 hours last night. continue current mgmt. 08/07: one period of agitation overnight but calmed self. continues less volatile today. continue current mgmt. 08/08: continues more calm than prior, while still quite symptomatic. check labs tonight. 08/09 continue tx. 08/10: trending more calm, although triggered during mtg with [facility] to sign 3-day notice. did agree prior to that to increase clozapine dosing to 150 mg tonight. not concerned about minimally elevated tegretol level due to that medication's trait of auto-induction of accelerated metabolism. will recheck tegretol level in several days. 08/11: more irritable and agitated today, demanding to leave on 3-day expiry. amenable to medication changes. informed of restraining order preventing him from seeing his daughter. increase clozapine to 175 mg tonight. 08/12: sleeping late morning, allowed to rest as more therapeutic than awakening manic pt. continue current mgmt. 08/13: Continue current regimen and plans 08/14: Continue current plans and regimen. 08/15: calm until being told no for discharge today, when he became dysregulated, yelling, threatening, and then throwing drinks in the [place] and finally trashing his room. got restrained with chair and IM zyprexa 10 and ativan 2. commitment paperwork filed. 08/16: rescinded 3-day notice, back on CV. calm, cooperative. minimal reactivity. apologetic after minor outburst. continue current mgmt. 08/17: per hospitalist discussion, lab abnormalities chronic and should be deferred for outpt W/U. tachycardia likely 2/2 anti-cholinergic activity of clozaril, pt declines beta heide. more calm today, but less challenged than previous days. continue current mgmt. Reason for continued inpatient stay Substantial Risk for: inability to function and rapid decompensation Time Spent With Patient Time: Total time managing care of this patient today _25___ minutes.
[2023-08-18 20:00] VITALS: BP 146/78; PULSE 98; RESP 16; TEMP 36.5; O2SAT 99
[2023-08-18] MEDS: cloZAPine 100 MG TABLET PO ×2 (21:48)
[2023-08-19 07:00] VITALS: BMI 33.0
[2023-08-19 07:30] VITALS: BP 143/90; PULSE 106; RESP 16; TEMP 37.2; O2SAT 96
[2023-08-19] MEDS: Nicotine 21 MG PATCH.TD24 TRANSDERMA (08:26)
[2023-08-19] MEDS: carBAMazepine ER 200 MG TAB.ER.12H 400 MG PO ×2 (08:26→21:32)
[2023-08-19] MEDS: Throat Lozenge, Medicated LOZENGE 1 LOZENGE MUCOUS MEM (08:26)
[2023-08-19] MEDS: Sennosides/Docusate Sodium TABLET 1 TAB PO (08:26)
[2023-08-19 08:27] VITALS: BP 144/90
[2023-08-19] MEDS: lisinopriL 10 MG TABLET PO (08:27)
[2023-08-19] MEDS: Ibuprofen 600 MG TABLET PO (08:40)
[2023-08-19] MEDS: Nicotine Polacrilex Lozenge 2 MG LOZENGE BUCCAL ×3 (12:21→21:04)
--- NOTE | 2023-08-19 13:29 | HO.PSYCHPN ---
Subjective Subjective Date of Service: 08/19/23 Reason For Visit: Francia Interim History: calm, cooperative in interview. non-labile, not irritable. appears somewhat euphoric on observation in the hallway, pacing the barton and dancing in a very conspicuous manner. per staff, cheerful, happy dancing. denies depression, endorses some anxiety. denies SI/HI/AVH. taking meds. slept 7 hours. Mental Status Exam Mental Status Exam Narrative: Appearance: dressed in street clothes Behavior: cooperative Psychomotor: dancing the barton Speech: spontaneous, incr rate, nml amount Mood: not assessed Affect: full range, normo-intense, non-labile SI: none expressed HI: none expressed AH/VH: none expressed Delusions: none expressed Insight/judgment: poor x 2. Diagnostics Vital Signs (24Hr): Vital Signs - 24 hr 08/18/23 20:00 08/19/23 07:30 08/19/23 08:27 Temperature 97.7 F 99.0 F Pulse Rate 98 106 H Respiratory Rate 16 16 Blood Pressure 146/78 H 143/90 H 144/90 H Pulse Oximetry 99 96 Oxygen Delivery Method Room Air Room Air BMI result Body Mass Index 33.0 Labs 08/17/23 20:02 07/28/23 08:01 Labs: Laboratory Results - last 48 hr 08/17/23 08/17/23 14:09 20:02 WBC 13.5 H RBC 4.32 L Hgb 14.8 Hct 42.7 MCV 98.8 H MCH 34.3 H MCHC 34.7 RDW 11.4 Plt Count 393 MPV 8.5 L Immature Gran % (Auto) 3.0 H Neut % (Auto) 74.0 H Lymph % (Auto) 14.9 L Jay % (Auto) 6.7 Eos % (Auto) 1.0 Baso % (Auto) 0.4 Lymph # (Auto) 2.0 Jay # (Auto) 0.9 Eos # (Auto) 0.1 Baso # (Auto) 0.1 Abs Immat Gran (auto) 0.41 H Absolute Neuts (auto) 10.0 H Absolute Nucleated RBC 0.000 Nucleated RBC % (auto) 0.0 Total Bilirubin 0.3 Direct Bilirubin < 0.1 AST 31 ALT 36 Alkaline Phosphatase 92 Total Protein 8.0 Albumin 4.1 TSH 2.09 Carbamazepine 12.2 H T.pallidum Ab (EIA) Nonreactive HIV 1&2 Ab/P24 Ag 4thGn Nonreactive Medications Medications Current Medications Acetaminophen (Acetaminophen 325 Mg Tablet) 650 mg PO Q4H PRN PRN Reason: Headache/Pain Mild Scale (1-3) Last Admin: 08/18/23 17:42 Dose: 650 mg Acetaminophen/Butalbital/Caffeine (Butalb/Acetamin/Caff 50/325/40 Tablet) 1 tab PO Q4H PRN PRN Reason: Pain, Moderate(Pain Scale 4-6) Last Admin: 08/17/23 03:26 Dose: 1 tab Al Hydroxide/Mg Hydroxide (Magnesium Hydrox/Alum Hydrox 30 Ml Oral.Susp) 30 ml PO Q6H PRN PRN Reason: Heartburn/Nausea Benzocaine (Throat Lozenge, Medicated Lozenge) 1 lozenge MUCOUS MEM Q1H PRN PRN Reason: Sore Throat Last Admin: 08/19/23 08:26 Dose: 1 lozenge Benzocaine (Benzocaine 20 % Oral Gel 9 Gm Tube) 1 appl MUCOUS MEM QID PRN; Protocol PRN Reason: Dental pain Last Admin: 08/15/23 15:42 Dose: 1 appl Carbamazepine (Carbamazepine Er 200 Mg Tab.Er.12h) 400 mg PO BID [facility] Last Admin: 08/19/23 08:26 Dose: 400 mg Clozapine (Clozapine 100 Mg Tablet) 100 mg PO BEDTIME [facility]ANN[facility] Last Admin: 08/18/23 21:48 Dose: 100 mg Clozapine (Clozapine 100 Mg Tablet) 100 mg PO BEDTIME [facility] Last Admin: 08/18/23 21:48 Dose: 100 mg Hydroxyzine HCl (Hydroxyzine Hcl 25 Mg Tablet) 25 mg PO Q6H PRN PRN Reason: Anxiety Ibuprofen (Ibuprofen 600 Mg Tablet) 600 mg PO Q6H PRN PRN Reason: Pain, Moderate(Pain Scale 4-6) Last Admin: 08/19/23 08:40 Dose: 600 mg Lidocaine (Lidocaine 4 % Patch Adh..Patch) 1 patch TRANSDERMA DAILY PRN; Protocol PRN Reason: Pain, Moderate(Pain Scale 4-6) Last Admin: 07/30/23 03:36 Dose: 1 patch Lisinopril (Lisinopril 20 Mg Tablet) 20 mg PO DAILY FANNIE; Protocol Magnesium Hydroxide (Milk Of Magnesia 30 Ml Oral.Susp) 30 ml PO DAILY PRN PRN Reason: Constipation Melatonin (Melatonin 3 Mg Tablet) 3 mg PO BEDTIME PRN PRN Reason: insomnia Nicotine (Nicotine 21 Mg Patch.Td24) 21 mg TRANSDERMA DAILY [facility] Last Admin: 08/19/23 08:26 Dose: 21 mg Nicotine Polacrilex (Nicotine Polacrilex Lozenge 2 Mg Lozenge) 2 mg BUCCAL Q1H PRN PRN Reason: nicotine cravings (toothache) Last Admin: 08/19/23 12:21 Dose: 2 mg Nicotine Polacrilex (Nicotine Polacrilex 2 Mg Gum) 2 mg BUCCAL Q1H PRN PRN Reason: nicotine crave (no toothaches) Last Admin: 08/11/23 01:13 Dose: 2 mg Olanzapine (Olanzapine 5 Mg Tablet) 5 mg PO Q4H PRN PRN Reason: Anxiety Last Admin: 08/03/23 21:11 Dose: 5 mg Senna/Docusate Sodium (Sennosides/Docusate Sodium Tablet) 1 tab PO DAILY [facility] Last Admin: 08/19/23 08:26 Dose: 1 tab Trazodone HCl (Trazodone Hcl 50 Mg Tablet) 50 mg PO BEDTIME PRN PRN Reason: insomnia Allergies Allergies Allergy/AdvReac Type Severity Reaction Status Date / Time haloperidol [From Haldol] AdvReac Severe dystonia Verified 07/27/23 14:04 Assessment & Plan Assessment & Plan (1) Schizoaffective disorder, bipolar type: Status: Acute Code(s): F25.0 - Schizoaffective disorder, bipolar type (2) Cannabis use disorder, mild, abuse: Status: Acute Code(s): F12.10 - Cannabis abuse, uncomplicated (3) Tobacco use disorder: Status: Acute Code(s): F17.200 - Nicotine dependence, unspecified, uncomplicated Plan 07/28: increase clozapine to 50 mg as of tonight. continue tegretol 200 BID. await stabilization. ativan per CIWA protocol. 07/29: scoring low on CIWA. agitated, labile. provoking fights with others, threatening to kill people. after being kicked today, put hands on peer. received IM medications and slept. did not sleep at all overnight. increase clozapine to 75 mg tonight, which pt is saying he will refuse to take. 07/31/2023: No changes to current regimen. Continue to encourage full adherence with clozapine dose 08/01: increase clozaril to 100 mg QHS. less agitated and labile than wednesday. 08/02: increase tegretol from 200 BID to 300 BID. decrease melatonin to 3 mg and trazodone to 50 mg QHS. continues less labile and agitated than on wednesday, although did punch a wall last night and threw water (which he subsequently apologized for and cleaned up). 08/03: medication restraint yesterday after appearing to attempt to get at a peer in a violent way - staff blocked movement. verbal altercation with another peer in the evening. today remains reactive and labile, perhaps less so than yesterday. taking meds. 08/05/23 Pt focused reportedly on living with uncle marked lack of insight refusing to discuss symptoms to reconsider 3 day need for hospitalization becomes easily agitated preoccupied with thoughts about how he is always being mal treated stating he would live with his uncle if discharged 08/05: medication restraint and physical restraint today upon being told of filing for commitment. pt later calmed with visitor and retracted 3-day notice. increase tegretol to 400 BID, increase clozapine to 125 QHS. 08/06: less volatile today, slept 7 hours last night. continue current mgmt. 08/07: one period of agitation overnight but calmed self. continues less volatile today. continue current mgmt. 08/08: continues more calm than prior, while still quite symptomatic. check labs tonight. 08/09 continue tx. 08/10: trending more calm, although triggered during mtg with [facility] to sign 3-day notice. did agree prior to that to increase clozapine dosing to 150 mg tonight. not concerned about minimally elevated tegretol level due to that medication's trait of auto-induction of accelerated metabolism. will recheck tegretol level in several days. 08/11: more irritable and agitated today, demanding to leave on 3-day expiry. amenable to medication changes. informed of restraining order preventing him from seeing his daughter. increase clozapine to 175 mg tonight. 08/12: sleeping late morning, allowed to rest as more therapeutic than awakening manic pt. continue current mgmt. 08/13: Continue current regimen and plans 08/14: Continue current plans and regimen. 08/15: calm until being told no for discharge today, when he became dysregulated, yelling, threatening, and then throwing drinks in the [place]arton and finally trashing his room. got restrained with chair and IM zyprexa 10 and ativan 2. commitment paperwork filed. 08/16: rescinded 3-day notice, back on CV. calm, cooperative. minimal reactivity. apologetic after minor outburst. continue current mgmt. 08/17: per hospitalist discussion, lab abnormalities chronic and should be deferred for outpt W/U. tachycardia likely 2/2 anti-cholinergic activity of clozaril, pt declines beta heide. more calm today, but less challenged than previous days. continue current mgmt. 08/18: somewhat euphoric today, lots of dancing. otherwise non-labile and not irritable. BP remains elevated, increase lisinopril to 20 mg daily. otherwise continue current mgmt. Reason for continued inpatient stay Substantial Risk for: inability to function and rapid decompensation Time Spent With Patient Time: Total time managing care of this patient today __25__ minutes.
[2023-08-19 19:45] VITALS: BP 140/81; PULSE 112; RESP 18; TEMP 36.3; O2SAT 96
[2023-08-19] MEDS: cloZAPine 100 MG TABLET PO ×2 (21:31→21:32)
[2023-08-20 03:22] LABS: Clozapine (Clozaril) 112 mcg/L; Norclozapine 99 mcg/L (25-400)
[2023-08-20 07:25] VITALS: BP 141/98; PULSE 111; RESP 18; TEMP 36.4; O2SAT 97
[2023-08-20] MEDS: Nicotine Polacrilex Lozenge 2 MG LOZENGE BUCCAL ×3 (07:35→21:07)
[2023-08-20] MEDS: Nicotine 21 MG PATCH.TD24 TRANSDERMA (08:25)
[2023-08-20 08:26] VITALS: BP 141/98
[2023-08-20] MEDS: lisinopriL 20 MG TABLET PO (08:26)
[2023-08-20] MEDS: Sennosides/Docusate Sodium TABLET 1 TAB PO (08:26)
[2023-08-20] MEDS: carBAMazepine ER 200 MG TAB.ER.12H 400 MG PO ×2 (08:26→22:03)
[2023-08-20] MEDS: Throat Lozenge, Medicated LOZENGE 1 LOZENGE MUCOUS MEM (08:27)
--- NOTE | 2023-08-20 12:36 | HO.PSYCHPN ---
Subjective Subjective Date of Service: 08/20/23 Reason For Visit: Francia Interim History: remains more calm today, expressing gratitude. some exuberant dancing in the [place]arton. plan to check labs next wednesday evening and consider discharge later in the week if stable course continues. per staff, denies dep/anx. visible. taking meds. calmer. pacing with headphones. cheerful, social. sleeping 7 hours. attended 2 groups yesterday. Mental Status Exam Mental Status Exam Narrative: Appearance: dressed in street clothes Behavior: cooperative Psychomotor: dancing the [place] Speech: spontaneous, incr rate, nml amount Mood: not assessed Affect: full range, normo-intense, non-labile SI: none expressed HI: none expressed AH/VH: none expressed Delusions: none expressed Insight/judgment: improving x 2. Diagnostics Vital Signs (24Hr): Vital Signs - 24 hr 08/19/23 19:45 08/20/23 07:25 08/20/23 08:26 Temperature 97.4 F 97.6 F Pulse Rate 112 H 111 H Respiratory Rate 18 18 Blood Pressure 140/81 H 141/98 H 141/98 H Pulse Oximetry 96 97 Oxygen Delivery Method Room Air Room Air BMI result Body Mass Index 33.0 Labs 08/17/23 20:02 07/28/23 08:01 Labs: Laboratory Results - last 48 hr 08/17/23 20:02 Clozapine 112 Norclozapine 99 Medications Medications Current Medications Acetaminophen (Acetaminophen 325 Mg Tablet) 650 mg PO Q4H PRN PRN Reason: Headache/Pain Mild Scale (1-3) Last Admin: 08/18/23 17:42 Dose: 650 mg Acetaminophen/Butalbital/Caffeine (Butalb/Acetamin/Caff 50/325/40 Tablet) 1 tab PO Q4H PRN PRN Reason: Pain, Moderate(Pain Scale 4-6) Last Admin: 08/17/23 03:26 Dose: 1 tab Al Hydroxide/Mg Hydroxide (Magnesium Hydrox/Alum Hydrox 30 Ml Oral.Susp) 30 ml PO Q6H PRN PRN Reason: Heartburn/Nausea Benzocaine (Throat Lozenge, Medicated Lozenge) 1 lozenge MUCOUS MEM Q1H PRN PRN Reason: Sore Throat Last Admin: 08/20/23 08:27 Dose: 1 lozenge Benzocaine (Benzocaine 20 % Oral Gel 9 Gm Tube) 1 appl MUCOUS MEM QID PRN; Protocol PRN Reason: Dental pain Last Admin: 08/15/23 15:42 Dose: 1 appl Carbamazepine (Carbamazepine Er 200 Mg Tab.Er.12h) 400 mg PO BID [facility] Last Admin: 08/20/23 08:26 Dose: 400 mg Clozapine (Clozapine 100 Mg Tablet) 100 mg PO BEDTIME [facility] Last Admin: 08/19/23 21:31 Dose: 100 mg Clozapine (Clozapine 100 Mg Tablet) 100 mg PO BEDTIME [facility] Last Admin: 08/19/23 21:32 Dose: 100 mg Hydroxyzine HCl (Hydroxyzine Hcl 25 Mg Tablet) 25 mg PO Q6H PRN PRN Reason: Anxiety Ibuprofen (Ibuprofen 600 Mg Tablet) 600 mg PO Q6H PRN PRN Reason: Pain, Moderate(Pain Scale 4-6) Last Admin: 08/19/23 08:40 Dose: 600 mg Lidocaine (Lidocaine 4 % Patch Adh..Patch) 1 patch TRANSDERMA DAILY PRN; Protocol PRN Reason: Pain, Moderate(Pain Scale 4-6) Last Admin: 07/30/23 03:36 Dose: 1 patch Lisinopril (Lisinopril 20 Mg Tablet) 20 mg PO DAILY [facility]; Protocol Last Admin: 08/20/23 08:26 Dose: 20 mg Magnesium Hydroxide (Milk Of Magnesia 30 Ml Oral.Susp) 30 ml PO DAILY PRN PRN Reason: Constipation Melatonin (Melatonin 3 Mg Tablet) 3 mg PO BEDTIME PRN PRN Reason: insomnia Nicotine (Nicotine 21 Mg Patch.Td24) 21 mg TRANSDERMA DAILY [facility] Last Admin: 08/20/23 08:25 Dose: 21 mg Nicotine Polacrilex (Nicotine Polacrilex Lozenge 2 Mg Lozenge) 2 mg BUCCAL Q1H PRN PRN Reason: nicotine cravings (toothache) Last Admin: 08/20/23 07:35 Dose: 2 mg Nicotine Polacrilex (Nicotine Polacrilex 2 Mg Gum) 2 mg BUCCAL Q1H PRN PRN Reason: nicotine crave (no toothaches) Last Admin: 08/11/23 01:13 Dose: 2 mg Olanzapine (Olanzapine 5 Mg Tablet) 5 mg PO Q4H PRN PRN Reason: Anxiety Last Admin: 08/03/23 21:11 Dose: 5 mg Senna/Docusate Sodium (Sennosides/Docusate Sodium Tablet) 1 tab PO DAILY [facility] Last Admin: 08/20/23 08:26 Dose: 1 tab Trazodone HCl (Trazodone Hcl 50 Mg Tablet) 50 mg PO BEDTIME PRN PRN Reason: insomnia Allergies Allergies Allergy/AdvReac Type Severity Reaction Status Date / Time haloperidol [From Haldol] AdvReac Severe dystonia Verified 07/27/23 14:04 Assessment & Plan Assessment & Plan (1) Schizoaffective disorder, bipolar type: Status: Acute Code(s): F25.0 - Schizoaffective disorder, bipolar type (2) Cannabis use disorder, mild, abuse: Status: Acute Code(s): F12.10 - Cannabis abuse, uncomplicated (3) Tobacco use disorder: Status: Acute Code(s): F17.200 - Nicotine dependence, unspecified, uncomplicated Plan 07/28: increase clozapine to 50 mg as of tonight. continue tegretol 200 BID. await stabilization. ativan per CIWA protocol. 07/29: scoring low on CIWA. agitated, labile. provoking fights with others, threatening to kill people. after being kicked today, put hands on peer. received IM medications and slept. did not sleep at all overnight. increase clozapine to 75 mg tonight, which pt is saying he will refuse to take. 07/31/2023: No changes to current regimen. Continue to encourage full adherence with clozapine dose 08/01: increase clozaril to 100 mg QHS. less agitated and labile than wednesday. 08/02: increase tegretol from 200 BID to 300 BID. decrease melatonin to 3 mg and trazodone to 50 mg QHS. continues less labile and agitated than on wednesday, although did punch a wall last night and threw water (which he subsequently apologized for and cleaned up). 08/03: medication restraint yesterday after appearing to attempt to get at a peer in a violent way - staff blocked movement. verbal altercation with another peer in the evening. today remains reactive and labile, perhaps less so than yesterday. taking meds. 08/05/23 Pt focused reportedly on living with uncle marked lack of insight refusing to discuss symptoms to reconsider 3 day need for hospitalization becomes easily agitated preoccupied with thoughts about how he is always being mal treated stating he would live with his uncle if discharged 08/05: medication restraint and physical restraint today upon being told of filing for commitment. pt later calmed with visitor and retracted 3-day notice. increase tegretol to 400 BID, increase clozapine to 125 QHS. 08/06: less volatile today, slept 7 hours last night. continue current mgmt. 08/07: one period of agitation overnight but calmed self. continues less volatile today. continue current mgmt. 08/08: continues more calm than prior, while still quite symptomatic. check labs tonight. 08/09 continue tx. 08/10: trending more calm, although triggered during mtg with [facility] to sign 3-day notice. did agree prior to that to increase clozapine dosing to 150 mg tonight. not concerned about minimally elevated tegretol level due to that medication's trait of auto-induction of accelerated metabolism. will recheck tegretol level in several days. 08/11: more irritable and agitated today, demanding to leave on 3-day expiry. amenable to medication changes. informed of restraining order preventing him from seeing his daughter. increase clozapine to 175 mg tonight. 08/12: sleeping late morning, allowed to rest as more therapeutic than awakening manic pt. continue current mgmt. 08/13: Continue current regimen and plans 08/14: Continue current plans and regimen. 08/15: calm until being told no for discharge today, when he became dysregulated, yelling, threatening, and then throwing drinks in the [place] and finally trashing his room. got restrained with chair and IM zyprexa 10 and ativan 2. commitment paperwork filed. 08/16: rescinded 3-day notice, back on CV. calm, cooperative. minimal reactivity. apologetic after minor outburst. continue current mgmt. 08/17: per hospitalist discussion, lab abnormalities chronic and should be deferred for outpt W/U. tachycardia likely 2/2 anti-cholinergic activity of clozaril, pt declines beta heide. more calm today, but less challenged than previous days. continue current mgmt. 08/18: somewhat euphoric today, lots of dancing. otherwise non-labile and not irritable. BP remains elevated, increase lisinopril to 20 mg daily. otherwise continue current mgmt. 08/19: remains somewhat euphoric, but calm, cooperative, pleasant. plan made to check labs next wednesday 08/23 carlos (ordered) and if labs good and stable course continues, discharge pt later that week sometime. Reason for continued inpatient stay Substantial Risk for: rapid decompensation Time Spent With Patient Time: Total time managing care of this patient today __35__ minutes.
[2023-08-20 19:56] VITALS: BP 148/78; PULSE 103; RESP 18; TEMP 36.5; O2SAT 97
[2023-08-20] MEDS: cloZAPine 100 MG TABLET PO ×2 (22:03→22:04)
--- NOTE | 2023-08-21 08:30 | P.PNPSI_ITS ---
Subjective Subjective Date of Service: 08/21/23 Reason For Visit: Francia Subjective Notes: Conditional Voluntary Interim History: 28 yo reports he is doing ok - lying in cubby space- embarassed about hair ties it up in tshirt- Reports he wants to be dced- has alot to do lost his wallet and id- nursing reports he is pacing , listening to music- trouble holding on to redirection- Medication Compliance: Yes Side effects from medications: No Attending Groups: Intermittent Review of Systems Acute medical concerns: No Medical Review of Systems: unchanged Mental Status Exam Mental Status Exam Patient Appearance: Bizarre Patient Orientation: Person, Place and Situation Level of Consciousness: Awake Patient Behavior: Appropriate, Cooperative and Good Eye Contact Mood Description: Happy Affect Description: Relaxed Patient Cognition Impaired: No Ability to Follow Directions: Fair Speech Pattern: Clear Hallucinations: None Thought Process: Distracted Thought Content: positive for Goal Oriented (future oriented- focused on 4 different potential living plans on dc) Depressive Symptoms: Difficulty Concentrating Judgement: Fair Diagnostics Vital Signs (24Hr): Vital Signs - 24 hr 08/20/23 19:56 Temperature 97.7 F Pulse Rate 103 H Respiratory Rate 18 Blood Pressure 148/78 H Pulse Oximetry 97 Oxygen Delivery Method Room Air BMI result Body Mass Index 33.0 Labs 08/17/23 20:02 07/28/23 08:01 Labs: Laboratory Results - last 48 hr 08/17/23 20:02 Clozapine 112 Norclozapine 99 Medications Medications Current Medications Acetaminophen (Acetaminophen 325 Mg Tablet) 650 mg PO Q4H PRN PRN Reason: Headache/Pain Mild Scale (1-3) Last Admin: 08/18/23 17:42 Dose: 650 mg Acetaminophen/Butalbital/Caffeine (Butalb/Acetamin/Caff 50/325/40 Tablet) 1 tab PO Q4H PRN PRN Reason: Pain, Moderate(Pain Scale 4-6) Last Admin: 08/17/23 03:26 Dose: 1 tab Al Hydroxide/Mg Hydroxide (Magnesium Hydrox/Alum Hydrox 30 Ml Oral.Susp) 30 ml PO Q6H PRN PRN Reason: Heartburn/Nausea Benzocaine (Throat Lozenge, Medicated Lozenge) 1 lozenge MUCOUS MEM Q1H PRN PRN Reason: Sore Throat Last Admin: 08/20/23 08:27 Dose: 1 lozenge Benzocaine (Benzocaine 20 % Oral Gel 9 Gm Tube) 1 appl MUCOUS MEM QID PRN; Protocol PRN Reason: Dental pain Last Admin: 08/15/23 15:42 Dose: 1 appl Carbamazepine (Carbamazepine Er 200 Mg Tab.Er.12h) 400 mg PO BID [facility] Last Admin: 08/20/23 22:03 Dose: 400 mg Clozapine (Clozapine 100 Mg Tablet) 100 mg PO BEDTIME [facility] Last Admin: 08/20/23 22:03 Dose: 100 mg Clozapine (Clozapine 100 Mg Tablet) 100 mg PO BEDTIME [facility] Last Admin: 08/20/23 22:04 Dose: 100 mg Hydroxyzine HCl (Hydroxyzine Hcl 25 Mg Tablet) 25 mg PO Q6H PRN PRN Reason: Anxiety Ibuprofen (Ibuprofen 600 Mg Tablet) 600 mg PO Q6H PRN PRN Reason: Pain, Moderate(Pain Scale 4-6) Last Admin: 08/19/23 08:40 Dose: 600 mg Lidocaine (Lidocaine 4 % Patch Adh..Patch) 1 patch TRANSDERMA DAILY PRN; Protocol PRN Reason: Pain, Moderate(Pain Scale 4-6) Last Admin: 07/30/23 03:36 Dose: 1 patch Lisinopril (Lisinopril 20 Mg Tablet) 20 mg PO DAILY [facility]; Protocol Last Admin: 08/20/23 08:26 Dose: 20 mg Magnesium Hydroxide (Milk Of Magnesia 30 Ml Oral.Susp) 30 ml PO DAILY PRN PRN Reason: Constipation Melatonin (Melatonin 3 Mg Tablet) 3 mg PO BEDTIME PRN PRN Reason: insomnia Nicotine (Nicotine 21 Mg Patch.Td24) 21 mg TRANSDERMA DAILY [facility] Last Admin: 08/20/23 08:25 Dose: 21 mg Nicotine Polacrilex (Nicotine Polacrilex Lozenge 2 Mg Lozenge) 2 mg BUCCAL Q1H PRN PRN Reason: nicotine cravings (toothache) Last Admin: 08/20/23 21:07 Dose: 2 mg Nicotine Polacrilex (Nicotine Polacrilex 2 Mg Gum) 2 mg BUCCAL Q1H PRN PRN Reason: nicotine crave (no toothaches) Last Admin: 08/11/23 01:13 Dose: 2 mg Olanzapine (Olanzapine 5 Mg Tablet) 5 mg PO Q4H PRN PRN Reason: Anxiety Last Admin: 08/03/23 21:11 Dose: 5 mg Senna/Docusate Sodium (Sennosides/Docusate Sodium Tablet) 1 tab PO DAILY [facility] Last Admin: 08/20/23 08:26 Dose: 1 tab Trazodone HCl (Trazodone Hcl 50 Mg Tablet) 50 mg PO BEDTIME PRN PRN Reason: insomnia Allergies Allergies Allergy/AdvReac Type Severity Reaction Status Date / Time haloperidol [From Haldol] AdvReac Severe dystonia Verified 07/27/23 14:04 Assessment & Plan Assessment & Plan (1) Schizoaffective disorder, bipolar type: Status: Acute Code(s): F25.0 - Schizoaffective disorder, bipolar type (2) Cannabis use disorder, mild, abuse: Status: Acute Code(s): F12.10 - Cannabis abuse, uncomplicated (3) Tobacco use disorder: Status: Acute Code(s): F17.200 - Nicotine dependence, unspecified, uncomplicated Plan 07/28: increase clozapine to 50 mg as of tonight. continue tegretol 200 BID. await stabilization. ativan per CIWA protocol. 07/29: scoring low on CIWA. agitated, labile. provoking fights with others, threatening to kill people. after being kicked today, put hands on peer. received IM medications and slept. did not sleep at all overnight. increase clozapine to 75 mg tonight, which pt is saying he will refuse to take. 07/31/2023: No changes to current regimen. Continue to encourage full adherence with clozapine dose 08/01: increase clozaril to 100 mg QHS. less agitated and labile than wednesday. 08/02: increase tegretol from 200 BID to 300 BID. decrease melatonin to 3 mg and trazodone to 50 mg QHS. continues less labile and agitated than on wednesday, although did punch a wall last night and threw water (which he subsequently apologized for and cleaned up). 08/03: medication restraint yesterday after appearing to attempt to get at a peer in a violent way - staff blocked movement. verbal altercation with another peer in the evening. today remains reactive and labile, perhaps less so than yesterday. taking meds. 08/05/23 Pt focused reportedly on living with uncle marked lack of insight refusing to discuss symptoms to reconsider 3 day need for hospitalization becomes easily agitated preoccupied with thoughts about how he is always being mal treated stating he would live with his uncle if discharged 08/05: medication restraint and physical restraint today upon being told of filing for commitment. pt later calmed with visitor and retracted 3-day notice. increase tegretol to 400 BID, increase clozapine to 125 QHS. 08/06: less volatile today, slept 7 hours last night. continue current mgmt. 08/07: one period of agitation overnight but calmed self. continues less volatile today. continue current mgmt. 08/08: continues more calm than prior, while still quite symptomatic. check labs tonight. 08/09 continue tx. 08/10: trending more calm, although triggered during mtg with [facility] to sign 3-day notice. did agree prior to that to increase clozapine dosing to 150 mg tonight. not concerned about minimally elevated tegretol level due to that medication's trait of auto-induction of accelerated metabolism. will recheck tegretol level in several days. 08/11: more irritable and agitated today, demanding to leave on 3-day expiry. amenable to medication changes. informed of restraining order preventing him from seeing his daughter. increase clozapine to 175 mg tonight. 08/12: sleeping late morning, allowed to rest as more therapeutic than awakening manic pt. continue current mgmt. 08/13: Continue current regimen and plans 08/14: Continue current plans and regimen. 08/15: calm until being told no for discharge today, when he became dysregulated, yelling, threatening, and then throwing drinks in the [place]arton and finally trashing his room. got restrained with chair and IM zyprexa 10 and ativan 2. commitment paperwork filed. 08/16: rescinded 3-day notice, back on CV. calm, cooperative. minimal reactivity. apologetic after minor outburst. continue current mgmt. 08/17: per hospitalist discussion, lab abnormalities chronic and should be deferred for outpt W/U. tachycardia likely 2/2 anti-cholinergic activity of clozaril, pt declines beta heide. more calm today, but less challenged than previous days. continue current mgmt. 08/18: somewhat euphoric today, lots of dancing. otherwise non-labile and not irritable. BP remains elevated, increase lisinopril to 20 mg daily. otherwise continue current mgmt. 08/19: remains somewhat euphoric, but calm, cooperative, pleasant. plan made to check labs next wednesday 08/23 carlos (ordered) and if labs good and stable course continues, discharge pt later that week sometime. 08/20 hoping to get dced- taking medication-working on plans for where to go - aware one may not be his mom's but still including it as one of 4/possible places Patient educated on: other Informed Consent: understands Reason for continued inpatient stay Substantial Risk for: rapid decompensation Time Spent With Patient Time: Total time managing care of this patient today ____ minutes.
[2023-08-21 08:44] VITALS: BP 132/77; PULSE 110; RESP 18; TEMP 36.5; O2SAT 96
[2023-08-21 09:49] VITALS: BP 132/77
[2023-08-21] MEDS: carBAMazepine ER 200 MG TAB.ER.12H 400 MG PO ×2 (09:49→22:34)
[2023-08-21] MEDS: Sennosides/Docusate Sodium TABLET 1 TAB PO (09:49)
[2023-08-21] MEDS: lisinopriL 20 MG TABLET PO (09:49)
[2023-08-21] MEDS: Nicotine Polacrilex Lozenge 2 MG LOZENGE BUCCAL ×2 (12:25→16:02)
[2023-08-21 21:50] VITALS: BP 136/75; PULSE 98; RESP 18; TEMP 36.9; O2SAT 97
[2023-08-21] MEDS: cloZAPine 100 MG TABLET PO ×2 (22:35)
[2023-08-22 08:03] VITALS: BP 138/77; PULSE 102; RESP 18; TEMP 36.5; O2SAT 97
[2023-08-22 08:06] VITALS: BP 138/77
[2023-08-22] MEDS: lisinopriL 20 MG TABLET PO (08:06)
[2023-08-22] MEDS: carBAMazepine ER 200 MG TAB.ER.12H 400 MG PO ×2 (08:06→21:26)
[2023-08-22] MEDS: Sennosides/Docusate Sodium TABLET 1 TAB PO (08:06)
[2023-08-22] MEDS: Nicotine Polacrilex Lozenge 2 MG LOZENGE BUCCAL ×4 (08:07→21:41)
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
[2023-08-22 19:40] VITALS: BP 149/79; PULSE 107; RESP 18; TEMP 36.4; O2SAT 96
[2023-08-22] MEDS: cloZAPine 100 MG TABLET PO ×2 (21:26)
[2023-08-23] MEDS: Nicotine Polacrilex Lozenge 2 MG LOZENGE BUCCAL ×4 (07:41→18:26)
[2023-08-23 07:58] VITALS: BP 139/89; PULSE 123; RESP 16; TEMP 36.9; O2SAT 98
[2023-08-23 08:35] LABS: Neut%MD 76.8 %; WBCANC 15.6 X10*3/uL
[2023-08-23 09:19] VITALS: BP 145/86
[2023-08-23] MEDS: lisinopriL 20 MG TABLET PO (09:19)
[2023-08-23] MEDS: Sennosides/Docusate Sodium TABLET 1 TAB PO (09:19)
[2023-08-23] MEDS: carBAMazepine ER 200 MG TAB.ER.12H 400 MG PO ×2 (09:19→22:07)
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
[2023-08-23 20:00] VITALS: BP 129/80; PULSE 110; RESP 16; TEMP 36.4; O2SAT 97
[2023-08-23 21:24] VITALS: PULSE 94; O2SAT 97
[2023-08-23] MEDS: cloZAPine 100 MG TABLET PO ×2 (22:07)
[2023-08-24] MEDS: Nicotine Polacrilex Lozenge 2 MG LOZENGE BUCCAL ×5 (05:38→22:04)
[2023-08-24 07:15] VITALS: BP 133/74; PULSE 105; RESP 16; TEMP 36.7; O2SAT 98
--- NOTE | 2023-08-24 09:00 | P.PNPSI_ITS ---
Subjective Subjective Date of Service: 08/24/23 Reason For Visit: Francia Subjective Notes: Conditional Voluntary Interim History: Reviewed with Dr. Radford. Calm, cooperative. Napping in the sensory room in the morning. Pt reports feeling good today; pt stated, I feel like I'm ready to go home. I'm going to keep taking my meds. I'm thinking of all the things I need to do when I leave here like get a new ID because I had lost my wallet . Pt denies SI/HI/VH/AH. Pt is hoping to be discharged this week. Medication Compliance: Yes Side effects from medications: No Attending Groups: Yes Review of Systems Constitutional: Reports as per HPI Eyes: Reports as per HPI Reports as per HPI Cardiovascular: Reports as per HPI Respiratory: Reports as per HPI Gastrointestinal: Reports as per HPI Genitourinary: Reports as per HPI Musculoskeletal: Reports as per HPI Skin/Breast: Reports as per HPI Reports as per HPI Psychiatric: Reports as per HPI Endocrine: Reports as per HPI Hematologic/Lymphatic: Reports as per HPI Allergic/Immunologic: Reports as per HPI Mental Status Exam Mental Status Exam Narrative: Pt is alert and oriented; behavior is cooperative, friendly and calm; dressed in casual attire; mood is described as good ; eye contact appropriate; Speech is normal rate, volume and not pressured; thought process is organized and goal directed; Thought content is on tx; denies SI/HI/VH/AH. Diagnostics Vital Signs (24Hr): Vital Signs - 24 hr 08/23/23 09:19 08/23/23 20:00 08/23/23 21:24 Temperature 97.5 F Pulse Rate 110 H 94 Respiratory Rate 16 Blood Pressure 145/86 H 129/80 Pulse Oximetry 97 97 Oxygen Delivery Method Room Air Room Air 08/24/23 07:15 Temperature 98.1 F Pulse Rate 105 H Respiratory Rate 16 Blood Pressure 133/74 Pulse Oximetry 98 Oxygen Delivery Method Room Air BMI result Body Mass Index 33.0 Labs 08/17/23 20:02 07/28/23 08:01 Labs: Laboratory Results - last 48 hr 08/23/23 08:25 Absolute Neuts (auto) 12.0 H Medications Medications Current Medications Acetaminophen (Acetaminophen 325 Mg Tablet) 650 mg PO Q4H PRN PRN Reason: Headache/Pain Mild Scale (1-3) Last Admin: 08/18/23 17:42 Dose: 650 mg Acetaminophen/Butalbital/Caffeine (Butalb/Acetamin/Caff 50/325/40 Tablet) 1 tab PO Q4H PRN PRN Reason: Pain, Moderate(Pain Scale 4-6) Last Admin: 08/17/23 03:26 Dose: 1 tab Al Hydroxide/Mg Hydroxide (Magnesium Hydrox/Alum Hydrox 30 Ml Oral.Susp) 30 ml PO Q6H PRN PRN Reason: Heartburn/Nausea Benzocaine (Throat Lozenge, Medicated Lozenge) 1 lozenge MUCOUS MEM Q1H PRN PRN Reason: Sore Throat Last Admin: 08/20/23 08:27 Dose: 1 lozenge Benzocaine (Benzocaine 20 % Oral Gel 9 Gm Tube) 1 appl MUCOUS MEM QID PRN; Protocol PRN Reason: Dental pain Last Admin: 08/15/23 15:42 Dose: 1 appl Carbamazepine (Carbamazepine Er 200 Mg Tab.Er.12h) 400 mg PO BID [facility] Last Admin: 08/23/23 22:07 Dose: 400 mg Clozapine (Clozapine 100 Mg Tablet) 100 mg PO BEDTIME [facility] Last Admin: 08/23/23 22:07 Dose: 100 mg Clozapine (Clozapine 100 Mg Tablet) 100 mg PO BEDTIME [facility] Last Admin: 08/23/23 22:07 Dose: 100 mg Hydroxyzine HCl (Hydroxyzine Hcl 25 Mg Tablet) 25 mg PO Q6H PRN PRN Reason: Anxiety Ibuprofen (Ibuprofen 600 Mg Tablet) 600 mg PO Q6H PRN PRN Reason: Pain, Moderate(Pain Scale 4-6) Last Admin: 08/19/23 08:40 Dose: 600 mg Lidocaine (Lidocaine 4 % Patch Adh..Patch) 1 patch TRANSDERMA DAILY PRN; Protocol PRN Reason: Pain, Moderate(Pain Scale 4-6) Last Admin: 07/30/23 03:36 Dose: 1 patch Lisinopril (Lisinopril 20 Mg Tablet) 20 mg PO DAILY [facility]; Protocol Last Admin: 08/23/23 09:19 Dose: 20 mg Magnesium Hydroxide (Milk Of Magnesia 30 Ml Oral.Susp) 30 ml PO DAILY PRN PRN Reason: Constipation Melatonin (Melatonin 3 Mg Tablet) 3 mg PO BEDTIME PRN PRN Reason: insomnia Nicotine (Nicotine 21 Mg Patch.Td24) 21 mg TRANSDERMA DAILY [facility] Last Admin: 08/23/23 09:54 Dose: Not Given Nicotine Polacrilex (Nicotine Polacrilex Lozenge 2 Mg Lozenge) 2 mg BUCCAL Q1H PRN PRN Reason: nicotine cravings (toothache) Last Admin: 08/24/23 05:38 Dose: 2 mg Nicotine Polacrilex (Nicotine Polacrilex 2 Mg Gum) 2 mg BUCCAL Q1H PRN PRN Reason: nicotine crave (no toothaches) Last Admin: 08/11/23 01:13 Dose: 2 mg Olanzapine (Olanzapine 5 Mg Tablet) 5 mg PO Q4H PRN PRN Reason: Anxiety Last Admin: 08/03/23 21:11 Dose: 5 mg Senna/Docusate Sodium (Sennosides/Docusate Sodium Tablet) 1 tab PO DAILY [facility] Last Admin: 08/23/23 09:19 Dose: 1 tab Trazodone HCl (Trazodone Hcl 50 Mg Tablet) 50 mg PO BEDTIME PRN PRN Reason: insomnia Allergies Allergies Allergy/AdvReac Type Severity Reaction Status Date / Time haloperidol [From Haldol] AdvReac Severe dystonia Verified 07/27/23 14:04 Assessment & Plan Assessment & Plan (1) Schizoaffective disorder, bipolar type: Status: Acute Code(s): F25.0 - Schizoaffective disorder, bipolar type (2) Cannabis use disorder, mild, abuse: Status: Acute Code(s): F12.10 - Cannabis abuse, uncomplicated (3) Tobacco use disorder: Status: Acute Code(s): F17.200 - Nicotine dependence, unspecified, uncomplicated Plan 07/28: increase clozapine to 50 mg as of tonight. continue tegretol 200 BID. await stabilization. ativan per CIWA protocol. 07/29: scoring low on CIWA. agitated, labile. provoking fights with others, threatening to kill people. after being kicked today, put hands on peer. received IM medications and slept. did not sleep at all overnight. increase clozapine to 75 mg tonight, which pt is saying he will refuse to take. 07/31/2023: No changes to current regimen. Continue to encourage full adherence with clozapine dose 08/01: increase clozaril to 100 mg QHS. less agitated and labile than wednesday. 08/02: increase tegretol from 200 BID to 300 BID. decrease melatonin to 3 mg and trazodone to 50 mg QHS. continues less labile and agitated than on wednesday, although did punch a wall last night and threw water (which he subsequently apologized for and cleaned up). 08/03: medication restraint yesterday after appearing to attempt to get at a peer in a violent way - staff blocked movement. verbal altercation with another peer in the evening. today remains reactive and labile, perhaps less so than yesterday. taking meds. 08/05/23 Pt focused reportedly on living with uncle marked lack of insight refusing to discuss symptoms to reconsider 3 day need for hospitalization becomes easily agitated preoccupied with thoughts about how he is always being mal treated stating he would live with his uncle if discharged 08/05: medication restraint and physical restraint today upon being told of filing for commitment. pt later calmed with visitor and retracted 3-day notice. increase tegretol to 400 BID, increase clozapine to 125 QHS. 08/06: less volatile today, slept 7 hours last night. continue current mgmt. 08/07: one period of agitation overnight but calmed self. continues less volatile today. continue current mgmt. 08/08: continues more calm than prior, while still quite symptomatic. check labs tonight. 08/09 continue tx. 08/10: trending more calm, although triggered during mtg with [facility] to sign 3-day notice. did agree prior to that to increase clozapine dosing to 150 mg tonight. not concerned about minimally elevated tegretol level due to that medication's trait of auto-induction of accelerated metabolism. will recheck tegretol level in several days. 08/11: more irritable and agitated today, demanding to leave on 3-day expiry. amenable to medication changes. informed of restraining order preventing him from seeing his daughter. increase clozapine to 175 mg tonight. 08/12: sleeping late morning, allowed to rest as more therapeutic than awakening manic pt. continue current mgmt. 15: Continue current regimen and plans 08/14: Continue current plans and regimen. 08/15: calm until being told no for discharge today, when he became dysregulated, yelling, threatening, and then throwing drinks in the [place]arton and finally trashing his room. got restrained with chair and IM zyprexa 10 and ativan 2. commitment paperwork filed. 08/16: rescinded 3-day notice, back on CV. calm, cooperative. minimal reactivity. apologetic after minor outburst. continue current mgmt. 08/17: per hospitalist discussion, lab abnormalities chronic and should be deferred for outpt W/U. tachycardia likely 2/2 anti-cholinergic activity of clozaril, pt declines beta heide. more calm today, but less challenged than previous days. continue current mgmt. 08/18: somewhat euphoric today, lots of dancing. otherwise non-labile and not irritable. BP remains elevated, increase lisinopril to 20 mg daily. otherwise continue current mgmt. 08/19: remains somewhat euphoric, but calm, cooperative, pleasant. plan made to check labs next wednesday 08/23 carlos (ordered) and if labs good and stable course continues, discharge pt later that week sometime. 08/20 hoping to get dced- taking medication-working on plans for where to go - aware one may not be his mom's but still including it as one of 4/possible places 08/21CTp 08/22: continue current tx plan. 08/23: Calm, cooperative. Napping in the sensory room in the morning. Pt reports feeling good today; pt stated, I feel like I'm ready to go home. I'm going to keep taking my meds. I'm thinking of all the things I need to do when I leave here like get a new ID because I had lost my wallet . Pt denies SI/HI/VH/AH. Pt is hoping to be discharged this week. Patient educated on: diagnosis, medication risk/benefits and therapeutic strategies Informed Consent: understands Reason for continued inpatient stay Substantial Risk for: med/psych decompensation Time Spent With Patient Time: Total time managing care of this patient today _20___ minutes.
[2023-08-24] MEDS: carBAMazepine ER 200 MG TAB.ER.12H 400 MG PO ×2 (09:15→22:02)
[2023-08-24 09:16] VITALS: BP 133/74
[2023-08-24] MEDS: Sennosides/Docusate Sodium TABLET 1 TAB PO (09:16)
[2023-08-24] MEDS: lisinopriL 20 MG TABLET PO (09:16)
[2023-08-24 20:14] LABS: MANUAL DIFF FLAG NO
[2023-08-24 20:16] LABS: Basophils Absolute Auto 0.1 X10*3/uL (0.0-0.2); Basophils Percent Auto 0.5 % (0-2); Eosinophils Absolute Auto 0.2 X10*3/uL (0.0-0.4); Eosinophils Percent Auto 1.7 % (0-4); Hematocrit 41.4 % (42.0-52.0); Hemoglobin 14.6 g/dl (14.0-18.0); Imm Gran Abs Auto 0.23 X10*3/uL (0.00-0.03); Imm Gran Pct Auto 2.3 % (0.0-0.4); Lymphocytes Absolute Auto 1.7 X10*3/uL (1.2-4.9); Lymphocytes Percent Auto 16.3 % (20-40); Mean Corpuscular HGB Conc 35.3 g/dl (31.0-36.0); Mean Corpuscular Hemoglobin 34.5 pg (27.0-33.0); Mean Corpuscular Volume 97.9 fL (80.0-98.0); Mean Platelet Volume 8.6 fL (9.4-12.4); Monocytes Percent Auto 9.9 % (2-11); Neutrophils Absolute Auto 7.1 x10*3/uL (2.0-8.3); Neutrophils Percent Auto 69.3 % (45-73); Platelet Count 370 X10*3/uL (160-400); Red Blood Count 4.23 X10*6/uL (4.60-5.80); Red Cell Distribution Width 11.4 % (11.0-16.0); White Blood Count 10.2 X10*3/uL (4.8-10.8)
[2023-08-24 20:32] LABS: Alanine Aminotransferase 30 U/L (0-40); Albumin Level 4.1 g/dL (3.5-5.0); Alkaline Phosphatase 82 U/L (39-117); Anion Gap 11 (12-20); Aspartate Amino Transferase 23 U/L (5-37); Bilirubin Direct < 0.2 mg/dL (0.0-0.5); Bilirubin Total 0.2 mg/dL (0.0-1.0); Blood Urea Nitrogen 12 mg/dL (9-16); Calcium 9.3 mg/dL (8.4-10.2); Carbon Dioxide 30 mmol/L (22-29); Chloride 102 mmol/L (96-108); Creatinine Clr Calc Pharmacy 139.6; Estimated Glomerular Filt Rate > 60; Glucose Random 104 mg/dL (60-115); Potassium 4.8 mmol/L (3.3-5.1); Sodium 138 mmol/L (135-145); Total Protein 7.4 g/dL (6.5-8.0)
[2023-08-24 20:38] LABS: Carbamazepine Tegretol 8.9 mcg/mL (5.0-12.0)
[2023-08-24] MEDS: cloZAPine 100 MG TABLET PO ×2 (22:01)
[2023-08-24 22:49] VITALS: BP 139/76; PULSE 110; RESP 14; TEMP 36.8; O2SAT 99
[2023-08-25] MEDS: Nicotine Polacrilex Lozenge 2 MG LOZENGE BUCCAL ×7 (06:25→22:00)
[2023-08-25 08:00] VITALS: BP 132/81; PULSE 117; O2SAT 96
--- NOTE | 2023-08-25 09:38 | P.PNPSI_ITS ---
Subjective Subjective Date of Service: 08/25/23 Reason For Visit: Francia Subjective Notes: Conditional Voluntary Interim History: Reviewed with Dr. Radford. Calm, cooperative. Pt stated, I feel pretty good. I feel normal, I know I was up and down before. I'm excited about leaving tomorrow; my uncle is going to pick me up and I have some things I need to do . Pt reports he plans on being medication compliant and following up with outpatient providers. Pt denies SI/HI/VH/AH. Carbamazepine level on 08/24/23 is 8.9 Clozapine level is pending. Last clozapine level on 08/17/23 was 112 Medication Compliance: Yes Side effects from medications: No Attending Groups: Yes Review of Systems Constitutional: Reports as per HPI Eyes: Reports as per HPI Reports as per HPI Cardiovascular: Reports as per HPI Respiratory: Reports as per HPI Gastrointestinal: Reports as per HPI Genitourinary: Reports as per HPI Musculoskeletal: Reports as per HPI Skin/Breast: Reports as per HPI Reports as per HPI Psychiatric: Reports as per HPI Endocrine: Reports as per HPI Hematologic/Lymphatic: Reports as per HPI Allergic/Immunologic: Reports as per HPI Mental Status Exam Mental Status Exam Narrative: Pt is alert and oriented; behavior is cooperative, friendly and calm; dressed in casual attire; mood is described as good ; eye contact appropriate; Speech is normal rate, volume and not pressured; thought process is organized and goal directed; Thought content is on discharge; denies SI/HI/VH/AH. Diagnostics Vital Signs (24Hr): Vital Signs - 24 hr 08/24/23 22:49 Temperature 98.2 F Pulse Rate 110 H Respiratory Rate 14 Blood Pressure 139/76 Pulse Oximetry 99 Oxygen Delivery Method Room Air BMI result Body Mass Index 33.0 Labs 08/24/23 20:08 08/24/23 20:08 Labs: Laboratory Results - last 48 hr 08/24/23 20:08 WBC 10.2 RBC 4.23 L Hgb 14.6 Hct 41.4 L MCV 97.9 MCH 34.5 H MCHC 35.3 RDW 11.4 Plt Count 370 MPV 8.6 L Immature Gran % (Auto) 2.3 H Neut % (Auto) 69.3 Lymph % (Auto) 16.3 L [place] % (Auto) 9.9 Eos % (Auto) 1.7 Baso % (Auto) 0.5 Lymph # (Auto) 1.7 [place] # (Auto) 1.0 Eos # (Auto) 0.2 Baso # (Auto) 0.1 Abs Immat Gran (auto) 0.23 H Absolute Neuts (auto) 7.1 Absolute Nucleated RBC 0.000 Nucleated RBC % (auto) 0.0 Sodium 138 Potassium 4.8 D Chloride 102 Carbon Dioxide 30 H Anion Gap 11 L BUN 12 Creatinine 0.77 Estim Creat Clear Calc 139.6 Estimated GFR > 60 Random Glucose 104 Calcium 9.3 Total Bilirubin 0.2 Direct Bilirubin < 0.2 AST 23 ALT 30 Alkaline Phosphatase 82 Total Protein 7.4 Albumin 4.1 Carbamazepine 8.9 Medications Medications Current Medications Acetaminophen (Acetaminophen 325 Mg Tablet) 650 mg PO Q4H PRN PRN Reason: Headache/Pain Mild Scale (1-3) Last Admin: 08/18/23 17:42 Dose: 650 mg Acetaminophen/Butalbital/Caffeine (Butalb/Acetamin/Caff 50/325/40 Tablet) 1 tab PO Q4H PRN PRN Reason: Pain, Moderate(Pain Scale 4-6) Last Admin: 08/17/23 03:26 Dose: 1 tab Al Hydroxide/Mg Hydroxide (Magnesium Hydrox/Alum Hydrox 30 Ml Oral.Susp) 30 ml PO Q6H PRN PRN Reason: Heartburn/Nausea Benzocaine (Throat Lozenge, Medicated Lozenge) 1 lozenge MUCOUS MEM Q1H PRN PRN Reason: Sore Throat Last Admin: 08/20/23 08:27 Dose: 1 lozenge Benzocaine (Benzocaine 20 % Oral Gel 9 Gm Tube) 1 appl MUCOUS MEM QID PRN; Protocol PRN Reason: Dental pain Last Admin: 08/15/23 15:42 Dose: 1 appl Carbamazepine (Carbamazepine Er 200 Mg Tab.Er.12h) 400 mg PO BID FANNIE Last Admin: 08/24/23 22:02 Dose: 400 mg Clozapine (Clozapine 100 Mg Tablet) 100 mg PO BEDTIME FANNIE Last Admin: 08/24/23 22:01 Dose: 100 mg Clozapine (Clozapine 100 Mg Tablet) 100 mg PO BEDTIME FANNIE Last Admin: 08/24/23 22:01 Dose: 100 mg Hydroxyzine HCl (Hydroxyzine Hcl 25 Mg Tablet) 25 mg PO Q6H PRN PRN Reason: Anxiety Ibuprofen (Ibuprofen 600 Mg Tablet) 600 mg PO Q6H PRN PRN Reason: Pain, Moderate(Pain Scale 4-6) Last Admin: 08/19/23 08:40 Dose: 600 mg Lidocaine (Lidocaine 4 % Patch Adh..Patch) 1 patch TRANSDERMA DAILY PRN; Protocol PRN Reason: Pain, Moderate(Pain Scale 4-6) Last Admin: 07/30/23 03:36 Dose: 1 patch Lisinopril (Lisinopril 20 Mg Tablet) 20 mg PO DAILY FANNIE; Protocol Last Admin: 08/24/23 09:16 Dose: 20 mg Magnesium Hydroxide (Milk Of Magnesia 30 Ml Oral.Susp) 30 ml PO DAILY PRN PRN Reason: Constipation Melatonin (Melatonin 3 Mg Tablet) 3 mg PO BEDTIME PRN PRN Reason: insomnia Nicotine Polacrilex (Nicotine Polacrilex Lozenge 2 Mg Lozenge) 2 mg BUCCAL Q1H PRN PRN Reason: nicotine cravings (toothache) Last Admin: 08/25/23 06:25 Dose: 2 mg Nicotine Polacrilex (Nicotine Polacrilex 2 Mg Gum) 2 mg BUCCAL Q1H PRN PRN Reason: nicotine crave (no toothaches) Last Admin: 08/11/23 01:13 Dose: 2 mg Olanzapine (Olanzapine 5 Mg Tablet) 5 mg PO Q4H PRN PRN Reason: Anxiety Last Admin: 08/03/23 21:11 Dose: 5 mg Senna/Docusate Sodium (Sennosides/Docusate Sodium Tablet) 1 tab PO DAILY FANNIE Last Admin: 08/24/23 09:16 Dose: 1 tab Trazodone HCl (Trazodone Hcl 50 Mg Tablet) 50 mg PO BEDTIME PRN PRN Reason: insomnia Allergies Allergies Allergy/AdvReac Type Severity Reaction Status Date / Time haloperidol [From Haldol] AdvReac Severe dystonia Verified 07/27/23 14:04 Assessment & Plan Assessment & Plan (1) Schizoaffective disorder, bipolar type: Status: Acute Code(s): F25.0 - Schizoaffective disorder, bipolar type (2) Cannabis use disorder, mild, abuse: Status: Acute Code(s): F12.10 - Cannabis abuse, uncomplicated (3) Tobacco use disorder: Status: Acute Code(s): F17.200 - Nicotine dependence, unspecified, uncomplicated Plan 07/28: increase clozapine to 50 mg as of tonight. continue tegretol 200 BID. await stabilization. ativan per CIWA protocol. 07/29: scoring low on CIWA. agitated, labile. provoking fights with others, threatening to kill people. after being kicked today, put hands on peer. received IM medications and slept. did not sleep at all overnight. increase clozapine to 75 mg tonight, which pt is saying he will refuse to take. 07/31/2023: No changes to current regimen. Continue to encourage full adherence with clozapine dose 08/01: increase clozaril to 100 mg QHS. less agitated and labile than wednesday. 08/02: increase tegretol from 200 BID to 300 BID. decrease melatonin to 3 mg and trazodone to 50 mg QHS. continues less labile and agitated than on wednesday, although did punch a wall last night and threw water (which he subsequently apologized for and cleaned up). 08/03: medication restraint yesterday after appearing to attempt to get at a peer in a violent way - staff blocked movement. verbal altercation with another peer in the evening. today remains reactive and labile, perhaps less so than yesterday. taking meds. 08/05/23 Pt focused reportedly on living with uncle marked lack of insight refusing to discuss symptoms to reconsider 3 day need for hospitalization becomes easily agitated preoccupied with thoughts about how he is always being mal treated stating he would live with his uncle if discharged 08/05: medication restraint and physical restraint today upon being told of filing for commitment. pt later calmed with visitor and retracted 3-day notice. increase tegretol to 400 BID, increase clozapine to 125 QHS. 08/06: less volatile today, slept 7 hours last night. continue current mgmt. 08/07: one period of agitation overnight but calmed self. continues less volatile today. continue current mgmt. 08/08: continues more calm than prior, while still quite symptomatic. check labs tonight. 08/09 continue tx. 08/10: trending more calm, although triggered during mtg with [facility] to sign 3-day notice. did agree prior to that to increase clozapine dosing to 150 mg tonight. not concerned about minimally elevated tegretol level due to that medication's trait of auto-induction of accelerated metabolism. will recheck tegretol level in several days. 08/11: more irritable and agitated today, demanding to leave on 3-day expiry. amenable to medication changes. informed of restraining order preventing him from seeing his daughter. increase clozapine to 175 mg tonight. 08/12: sleeping late morning, allowed to rest as more therapeutic than awakening manic pt. continue current mgmt. 08/13: Continue current regimen and plans 08/14: Continue current plans and regimen. 08/15: calm until being told no for discharge today, when he became dysregulated, yelling, threatening, and then throwing drinks in the [place]arton and finally trashing his room. got restrained with chair and IM zyprexa 10 and ativan 2. commitment paperwork filed. 08/16: rescinded 3-day notice, back on CV. calm, cooperative. minimal reactivity. apologetic after minor outburst. continue current mgmt. 08/17: per hospitalist discussion, lab abnormalities chronic and should be deferred for outpt W/U. tachycardia likely 2/2 anti-cholinergic activity of clozaril, pt declines beta heide. more calm today, but less challenged than previous days. continue current mgmt. 08/18: somewhat euphoric today, lots of dancing. otherwise non-labile and not irritable. BP remains elevated, increase lisinopril to 20 mg daily. otherwise continue current mgmt. 08/19: remains somewhat euphoric, but calm, cooperative, pleasant. plan made to check labs next wednesday 08/23 carlos (ordered) and if labs good and stable course continues, discharge pt later that week sometime. 08/20 hoping to get dced- taking medication-working on plans for where to go - aware one may not be his mom's but still including it as one of 4/possible places 08/21CTp 08/22: continue current tx plan. 08/23: Calm, cooperative. Napping in the sensory room in the morning. Pt reports feeling good today; pt stated, I feel like I'm ready to go home. I'm going to keep taking my meds. I'm thinking of all the things I need to do when I leave here like get a new ID because I had lost my wallet . Pt denies SI/HI/VH/AH. Pt is hoping to be discharged this week. 08/24: Calm, cooperative. Pt stated, I feel pretty good. I feel normal, I know I was up and down before. I'm excited about leaving tomorrow; my uncle is going to pick me up and I have some things I need to do . Pt reports he plans on being medication compliant and following up with outpatient providers. Pt denies SI/HI/VH/AH. Carbamazepine level on 08/24/23 is 8.9 Clozapine level is pending. Last clozapine level on 08/17/23 was 112 Patient educated on: diagnosis, medication risk/benefits and therapeutic strategies Informed Consent: understands Reason for continued inpatient stay Substantial Risk for: stable for discharge Time Spent With Patient Time: Total time managing care of this patient today _20___ minutes.
[2023-08-25] MEDS: carBAMazepine ER 200 MG TAB.ER.12H 400 MG PO ×2 (10:04→22:00)
[2023-08-25] MEDS: Sennosides/Docusate Sodium TABLET 1 TAB PO (10:04)
[2023-08-25 10:06] VITALS: BP 132/81
[2023-08-25] MEDS: lisinopriL 20 MG TABLET PO (10:06)
[2023-08-25 20:00] VITALS: BP 157/74; PULSE 102; RESP 16; TEMP 36.4; O2SAT 98
[2023-08-25] MEDS: cloZAPine 100 MG TABLET PO ×2 (22:01)
[2023-08-26 07:00] VITALS: BMI 32.1
[2023-08-26 07:10] VITALS: BP 117/69; PULSE 111; RESP 16; TEMP 36.4; O2SAT 99
[2023-08-26] MEDS: Nicotine Polacrilex Lozenge 2 MG LOZENGE BUCCAL ×2 (07:10→10:45)
[2023-08-26] MEDS: carBAMazepine ER 200 MG TAB.ER.12H 400 MG PO (09:02)
[2023-08-26] MEDS: Sennosides/Docusate Sodium TABLET 1 TAB PO (09:02)
[2023-08-26 09:03] VITALS: BP 117/69
[2023-08-26] MEDS: lisinopriL 20 MG TABLET PO (09:03)
[2023-08-26] MEDS: Acetaminophen 325 MG TABLET 650 MG PO (10:44)
[2023-08-28 22:38] LABS: Clozapine (Clozaril) 66 mcg/L; Norclozapine 76 mcg/L (25-400)
--- NOTE | 2023-08-30 12:38 | P.DS_ITS ---
DS: Providers Provider Date of Service: 08/26/23 Date of admission: 07/28/23 12:00 Date of discharge: 08/26/23 Primary care physician: Unknown Physician Attending physician on admission: Ben Mcdonald Attending physician on discharge: Jez Radford Discharging clinician: Clare Jay DS: Diagnosis Discharge Diagnosis (1) Schizoaffective disorder, bipolar type: Status: Acute (2) Cannabis use disorder, mild, abuse: Status: Acute (3) Tobacco use disorder: Status: Acute DS: Medications Discharge Medications Home Medications: Previous Rx's ?Medication ?Instructions ?Recorded carbamazepine 400 mg 400 mg PO BID 30 days #60 tabs 08/25/23 tablet,extended release,12 hr clozapine 200 mg tablet 200 mg PO BEDTIME 30 days #30 tabs 08/25/23 lisinopril 20 mg tablet 20 mg PO DAILY 30 days #30 tabs 08/25/23 sennosides 8.6 mg-docusate sodium 1 tab PO DAILY 30 days #30 tabs 08/25/23 50 mg tablet (Senna Plus) Mental Status Exam Mental Status Exam Narrative: Pt is alert and oriented; behavior is cooperative, friendly and calm; dressed in casual attire; mood is described as good ; eye contact appropriate; Speech is normal rate, volume and not pressured; thought process is organized and goal directed; Thought content is on discharge; denies SI/HI/VH/AH. Data Data Completed and Pending Completed studies during hospitalization [Text1]: 08/24/23 20:08 WBC 10.2 RBC 4.23 L Hgb 14.6 Hct 41.4 L MCV 97.9 MCH 34.5 H MCHC 35.3 RDW 11.4 Plt Count 370 MPV 8.6 L Immature Gran % (Auto) 2.3 H Neut % (Auto) 69.3 Lymph % (Auto) 16.3 L [place] % (Auto) 9.9 Eos % (Auto) 1.7 Baso % (Auto) 0.5 Lymph # (Auto) 1.7 [place] # (Auto) 1.0 Eos # (Auto) 0.2 Baso # (Auto) 0.1 Abs Immat Gran (auto) 0.23 H Absolute Neuts (auto) 7.1 Absolute Nucleated RBC 0.000 Nucleated RBC % (auto) 0.0 Sodium 138 Potassium 4.8 D Chloride 102 Carbon Dioxide 30 H Anion Gap 11 L BUN 12 Creatinine 0.77 Estim Creat Clear Calc 139.6 Estimated GFR > 60 Random Glucose 104 Calcium 9.3 Total Bilirubin 0.2 Direct Bilirubin < 0.2 AST 23 ALT 30 Alkaline Phosphatase 82 Total Protein 7.4 Albumin 4.1 Carbamazepine 8.9 Clozapine 66 Norclozapine 76 DS: Summary Hospital Course Hospital Course: per [facility] crisis eval, co-response was called to pt's home by his mother due to c/o increased manic behaviors by patient, including insomnia, excessive energy, unprovoked agitation, physical and verbal aggression, delusions, and RIS. he reportedly threatened to kills his mother and step-father that day, as well as to burn the house down. he was noted to have been posturing toward his mother and step-father, and to have punched holes in his wall and door that day. he was described as agitated and verbally aggressive upon interview in the field. he admitted to not taking his medications after discharge from recently. asked for the police to shoot [him] in the mouth. he indicated his plan was to return to his home, drink a bunch of alcohol, and fight my family, at which point he was section 12ed to the [facility]. per [facility] note, pt was refusing medications and labs upon arrival in the ED on section 12. finally agreed to take meds, asked that they be given IM, for unclear reasons. on the unit with MD, fairly disorganized and hyperactive, but generally pleasant and agreeable. agrees to continue outpt medications regimen. agreeable to clozapine titration. reports poor sleep. euphoric. increase clozapine to 50 mg as of tonight. continue tegretol 200 BID. await stabilization. ativan per CIWA protocol. scoring low on CIWA. agitated, labile. provoking fights with others, threatening to kill people. after being kicked today, put hands on peer. received IM medications and slept. did not sleep at all overnight. increase clozapine to 75 mg tonight, which pt is saying he will refuse to take. increase clozaril to 100 mg QHS. less agitated and labile than wednesday. increase tegretol from 200 BID to 300 BID. decrease melatonin to 3 mg and trazodone to 50 mg QHS. continues less labile and agitated than on wednesday, although did punch a wall last night and threw water (which he subsequently apologized for and cleaned up). medication restraint yesterday after appearing to attempt to get at a peer in a violent way - staff blocked movement. verbal altercation with another peer in the evening. today remains reactive and labile, perhaps less so than yesterday. taking meds. Pt focused reportedly on living with uncle marked lack of insight refusing to discuss symptoms to reconsider 3 day need for hospitalization becomes easily agitated preoccupied with thoughts about how he is always being mal treated stating he would live with his uncle if discharged medication restraint and physical restraint today upon being told of filing for commitment. pt later calmed with visitor and retracted 3-day notice. increase tegretol to 400 BID, increase clozapine to 125 QHS. less volatile today, slept 7 hours last night. continue current mgmt. one period of agitation overnight but calmed self. continues less volatile today. continue current mgmt. continues more calm than prior, while still quite symptomatic. check labs tonight. trending more calm, although triggered during mtg with [facility] to sign 3-day notice. did agree prior to that to increase clozapine dosing to 150 mg tonight. not concerned about minimally elevated tegretol level due to that medication's trait of auto-induction of accelerated metabolism. will recheck tegretol level in several days. more irritable and agitated today, demanding to leave on 3-day expiry. amenable to medication changes. informed of restraining order preventing him from seeing his daughter. increase clozapine to 175 mg tonight. sleeping late morning, allowed to rest as more therapeutic than awakening manic pt. continue current mgmt. calm until being told no for discharge today, when he became dysregulated, yelling, threatening, and then throwing drinks in the [place] and finally trashing his room. got restrained with chair and IM zyprexa 10 and ativan 2. commitment paperwork filed. rescinded 3-day notice, back on CV. calm, cooperative. minimal reactivity. apologetic after minor outburst. continue current mgmt. per hospitalist discussion, lab abnormalities chronic and should be deferred for outpt W/U. tachycardia likely 2/2 anti-cholinergic activity of clozaril, pt declines beta heide. more calm today, but less challenged than previous days. continue current mgmt. somewhat euphoric today, lots of dancing. otherwise non-labile and not irritable. BP remains elevated, increase lisinopril to 20 mg daily. otherwise continue current mgmt. remains somewhat euphoric, but calm, cooperative, pleasant. plan made to check labs next wednesday 08/23 carlos (ordered) and if labs good and stable course continues, discharge pt later that week sometime. hoping to get dced- taking medication-working on plans for where to go - aware one may not be his mom's but still including it as one of 4/possible places Calm, cooperative. Napping in the sensory room in the morning. Pt reports feeling good today; pt stated, I feel like I'm ready to go home. I'm going to keep taking my meds. I'm thinking of all the things I need to do when I leave here like get a new ID because I had lost my wallet . Pt denies SI/HI/VH/AH. Pt is hoping to be discharged this week. Calm, cooperative. Pt stated, I feel pretty good. I feel normal, I know I was up and down before. I'm excited about leaving tomorrow; my uncle is going to pick me up and I have some things I need to do . Pt reports he plans on being medication compliant and following up with outpatient providers. Pt denies SI/HI/VH/AH. Carbamazepine level on 08/24/23 is 8.9 Clozapine level is pending. Last clozapine level on 08/17/23 was 112 Pt reports feeling good and ready to go ; pt reports he plans on following up with outpatient providers. pt denies SI/HI/VH/AH. Time spent discussing smoking cessation with patient: 3 to 10 minutes Status at Discharge Cognitive/behavioral status at discharge: Patient was interviewed prior to discharge and found to be fully oriented and without SI or HI. Patient has insight and demonstrates good judgment in terms of wanting to pursue treatment. Patient has a safety plan that includes presenting to the closest ER or calling 911 if feeling unsafe. Functional status at discharge: independent ambulation Overall status at discharge: patient is back to baseline Time Spent with Patient Time attestation: Total time managing care of this patient today _20___ minutes. Time spent: Less than 30 minutes Discharge Plan Discharge Anticipated Discharge Date/Time: 08/26/23 11:30 Patient Disposition: Home, Self-Care Discharge Diagnosis: Schizoaffective d/o Referrals: Jarett Rene (Therapy) [Other] - 08/31/23 10:00 am (IN OFFICE APPOINTMENT) Estephanie Warnerkrystle (Psychiatry) [Other] - 10/13/23 11:00 am (IN OFFICE APPOINTMENT) [facility] [Provider Group] - 1 Week Discharge Medications: New lisinopril 20 mg Tablet 20 mg PO DAILY 30 Days Qty: 30 0RF Protocol: Hold for SBP< HOLD for SBP < : 100 sennosides-docusate sodium [Senna Plus] 8.6-50 mg Tablet 1 tab PO DAILY 30 Days Qty: 30 0RF carbamazepine 400 mg tablet extended release 12 hr 400 mg PO BID 30 Days Qty: 60 0RF clozapine 200 mg tablet 200 mg PO BEDTIME 30 Days Qty: 30 0RF Discontinued clozapine 100 mg tablet 100 mg PO BEDTIME sennosides-docusate sodium [Senexon-S] 8.6-50 mg tablet 1 tab PO DAILY PRN (Reason: constipation) melatonin 3 mg tablet 9 mg PO BEDTIME trazodone 100 mg tablet 100 mg PO BEDTIME PRN (Reason: insomnia) nicotine 21 mg/24 hr patch 24 hour 1 patch transdermal DAILY nicotine (polacrilex) 4 mg lozenge 4 mg buccal Q2H PRN (Reason: nicotine cravings) Discharge Orders: Discharge Order (Routine); Ordered 08/26/23 Ordered By: Clare Jay Diet: Regular diet Activity on Discharge: As tolerated Stand Alone Forms: Patient Portal Discharge page, Community Support Print Language: Belarusian Care Plan Goals: Maintain mood and safe behaviors Take medications as prescribed Continue to pursue sobriety Practice coping skills Continue with outpatient providers and reach out to them as needed Health Concerns: Mood stability and behaviors Sobriety Monitor labs for clozapine and carbamazepine with your outpatient providers Plan of Treatment: Follow up with your PCP, psychiatric provider and other outpatient providers regarding above concerns Take medications as prescribed Assessment: Patient was interviewed prior to discharge and found to be fully oriented and without SI or HI. Patient has insight and demonstrates good judgment in terms of wanting to pursue treatment. Patient has a safety plan that includes presenting to the closest ER or calling 911 if feeling unsafe. Discharge Date/Time: 08/26/23 11:05
== END 2023-08-26 11:05 | disposition home or self-care (01) | DRG 750 ==
LOC: HO.ED 07-28 11:24 → HO.PADLT16 07-28 12:48
PROVIDERS: Admitting Provider Psychiatry & Neurology Psychiatry; Emergency Provider Emergency Medicine; Visit Provider Psychiatry & Neurology Psychiatry
DX: F25.0 Schizoaffective disorder, bipolar type (principal); R45.850 Homicidal ideations; D50.9 Iron deficiency anemia, unspecified; F12.10 Cannabis abuse, uncomplicated; F17.210 Nicotine dependence, cigarettes, uncomplicated; Z71.6 Tobacco abuse counseling; Z78.1 Physical restraint status; Z91.148 Patient's other noncompliance with medication regimen for other reason; Z79.899 Other long term (current) drug therapy
CPT/HCPCS: 36415; 80048; 80053; 80076; 80156; 80159; 80307; 81003; 84443; 85025; 85048; 86780; 87389; 99285; J2060; J2359; J3360

== ENCOUNTER → 2023-07-28 12:00 | Outpatient (BNV) | payer OTHER, SELFPAY | PROVIDERS: Admitting Provider Psychiatry & Neurology Psychiatry; Emergency Provider Emergency Medicine; Visit Provider Psychiatry & Neurology Psychiatry | DX: F25.0 Schizoaffective disorder, bipolar type (principal); F12.10 Cannabis abuse, uncomplicated; F17.200 Nicotine dependence, unspecified, uncomplicated | CPT/HCPCS: 99231 ==

== ENCOUNTER → 2023-07-28 12:00 | Outpatient (BNV) | payer OTHER, SELFPAY | PROVIDERS: Admitting Provider Psychiatry & Neurology Psychiatry; Emergency Provider Emergency Medicine; Visit Provider Psychiatry & Neurology Psychiatry | DX: F25.0 Schizoaffective disorder, bipolar type (principal); F12.10 Cannabis abuse, uncomplicated; F17.200 Nicotine dependence, unspecified, uncomplicated | CPT/HCPCS: 99231; 99232; 99233 ==

== ENCOUNTER 2024-09-20 08:32 | Inpatient (IN) | payer MEDICAID, OTHER, SELFPAY ==
--- NOTE | ~2024-09-20 | XR_ITS ---
EXAMINATION: XR CHEST CLINICAL INFORMATION: Leukocytosis COMPARISON: July 17, 2021 TECHNIQUE: Frontal view of the chest was obtained. FINDINGS: No consolidation, pleural effusion or pneumothorax. Cardiomediastinal silhouette size is normal. Mild S-shaped curvature of the thoracic spine. XR/XR chest 1V IMPRESSION: No acute airspace disease. Electronically signed by: Justen Prado MD 09/25/2024 03:47 PM EDT
--- NOTE | 2024-09-20 08:37 | ECG_ITS ---
Test Reason : med clearance Blood Pressure : */* mmHG Vent. Rate : 80 BPM Atrial Rate : 80 BPM P-R Int : 154 ms QRS Dur : 80 ms QT Int : 364 ms P-R-T Axes : 24 112 65 degrees QTcB Int : 419 ms Normal sinus rhythm Right axis deviation Nonspecific T wave abnormality Abnormal ECG When compared with ECG of 02-Jul-2023 19:32, Nonspecific T wave abnormality now evident in Lateral leads Referred By: Marisa Bonds Electronically Signed By: Ji Roach
--- NOTE | 2024-09-20 08:37 | ED.GENADULT ---
HPI - General Adult General Chief complaint: Psychiatric Symptoms Stated complaint: SI NO PLAN, RECENT ETOH USE, CALM/COOP PER EMS Time Seen by Provider: 09/20/24 08:37 Source: patient and EMS Mode of arrival: EMS Limitations: other (patient refuses to participate in HPI) History of Present Illness ED Provider: Marisa Bonds PA-C HPI narrative: Patient is a 29 year old assigned male at with a history of cannabis use disorder and schizoaffective disorder presenting to the emergency department today with suicidal ideation and delusions. Patient comes via EMS for making suicidal statements. Patient refused to answer questions. Patient repetitively said he can hear voices and the voices are telling him to kill himself. Patient became agitated, posturing toward staff. Related Data Previous Rx's ?Medication ?Instructions ?Recorded carbamazepine 400 mg 400 mg PO BID 30 days #60 tabs 09/26/24 tablet,extended release,12 hr clozapine 150 mg disintegrating 150 mg PO BEDTIME 30 days #30 tabs 09/26/24 tablet lisinopril 20 mg tablet 20 mg PO DAILY 30 days #30 tabs 09/26/24 melatonin 5 mg tablet 5 mg PO BEDTIME PRN sleep 30 days 09/26/24 #30 tabs penicillin V potassium 500 mg 500 mg PO Q6H 9 days #36 tabs 09/26/24 tablet sennosides 8.6 mg-docusate sodium 1 tab PO DAILY 30 days #30 tabs 09/26/24 50 mg tablet (Senna Plus) Allergies Allergy/AdvReac Type Severity Reaction Status Date / Time haloperidol (From Haldol) AdvReac Severe dystonia Verified 09/20/24 09:09 Review of Systems Review of Systems: Yes Other (patient refused to answer) Constitutional: Constitutional: Reports as per HPI Eyes: Eyes: Reports as per HPI ENT: Reports as per HPI Cardiovascular: Cardiovascular: Reports as per HPI Respiratory: Respiratory: Reports as per HPI Gastrointestinal: Gastrointestinal: Reports as per HPI Genitourinary: Genitourinary: Reports as per HPI Musculoskeletal: Musculoskeletal: Reports as per HPI Integumentary/Breasts: Skin/Breast: Reports as per HPI Neurologic: Reports as per HPI Psychiatric: Psychiatric: Reports auditory hallucinations and Reports suicidal ideation [facility] Past Medical History Attestation statement: The following information was validated with the patient. Source: old records reviewed and nursing notes reviewed Medical History Schizoaffective disorder, bipolar type Bipolar 1 disorder Alcohol abuse Social History Social History Household Members: Family Household Members Other:: Mother Housing: Apartment Do you presently have visiting nurse or other home services: No Unable to assess alcohol history related to: Refusing to respond Alcohol intake: current Alcohol intake frequency: 3 or more drinks per day Alcohol type: hard liquor Comment: Dr. Campbell Patient Tobacco Use Status: Current everyday Tobacco user Tobacco use type: Cigarette and Smokeless Tobacco Cigarette Packs Per Day: 1 Cigarettes Per Day: 20.0 Years Smoked: ''a long time'' e-Cigarette/Vaping Use: Currently Using Second Hand Smoke Exposure: Yes Substance Use Type: Marijuana service: No Sexual orientation: Straight/Heterosexual Physical Exam ED Vital Signs: Vital Signs - 24 hr 09/21/24 12:46 09/21/24 13:22 09/21/24 14:41 Temperature 96.8 F 98.3 F Pulse Rate 114 H 102 H 120 H Respiratory Rate 18 12 Blood Pressure 198/80 H 168/89 H 200/107 H Pulse Oximetry 96 95 97 Oxygen Delivery Method Room Air Room Air Room Air 09/21/24 15:01 09/21/24 15:02 09/21/24 15:28 Temperature Pulse Rate 112 H 102 H Respiratory Rate 16 18 16 Blood Pressure 178/102 H 176/86 H Pulse Oximetry 98 Oxygen Delivery Method 09/21/24 20:55 09/22/24 05:00 Temperature 97.8 F Pulse Rate 95 Respiratory Rate 16 18 Blood Pressure 139/91 H Pulse Oximetry 99 Oxygen Delivery Method Room Air BMI result Body Mass Index 28.1 Const General: cooperative, no acute distress, alert and awake Nutritional Appearance: well nourished Orientation/consciousness: oriented to person [place]EN[place] Head: Yes normal to inspection and Yes atraumatic Ears: hearing grossly normal bilaterally and external ears normal General nose exam: Normal external nose present, no nasal discharge noted and no epistaxis Face and sinus: Yes normal facial exam, No abrasion and No laceration Mouth: Normal oral and palatal mucosa present, no drooling and no muffled voice Eyes General: appearance normal, both eyes and all related structures Periorbital: periorbital findings normal Eyelids: Yes eyelids normal Conjunctivae: conjunctivae normal Pupils: Equal, round and reactive pupils present EOM: EOMs intact bilaterally Neck Neck: Yes normal visual inspection, Yes full ROM and Yes no lymphadenopathy Resp Effort & Inspection: normal respiratory effort and able to speak in complete sentences Neuro General: oriented to person, moves all extremities and CN's II-XI intact bilaterally Cranial nerves: Yes Equal, round and reactive pupils present Extrem General: Yes normal to inspection, Yes full ROM and Yes capillary refill normal Psych Speech and movement: Clear speech present and Pressured speech present Affect: Labile affect present Attitude: Belligerent attititude/behavior present and Refuses to answer (attititude/behavior) Thought process: Confabulating thought process present and Illogical thought process present Thought content: Suicidality present and Paranoid delusions present Course Reevaluation(s) Reevaluation #1: Time: 08:12 Date: 09/21/24 Provider: Mor Valladares, DO Patient in physician observation for psychiatric evaluation.? No acute events reported overnight. No current complaints. VS stable.? Patient is in bed search status.. Will continue to monitor. Time: 07:00 Reevaluation #2: Patient evaluated after I ordered intramuscular medicine as he was decompensating and currently in restraints coming down, we will continue to observe make sure he is able to be removed off the restraints. Time: 11:33 Time: 14:27 (Patient re-evaluated after he received ketamine, I under dosed ketamine, but he responded well) Additional Reevaluation(s): Time: 06:43 Date: 09/22/24 Provider: Jose Prado MD Patient in physician observation for psychiatric evaluation. Patient has been in the emergency department for 46 hours.? Nursing reports that the patient had a few short episodes where he felt overwhelmed and agitated by internal stimuli, became tearful but staff was able to deescalate the patient. Patient did accept oral medications. Vital signs revealed elevated blood pressure of 139/91. He has had higher elevations during this ED course, no history of hypertension, most likely secondary to agitation-she will continue to monitor blood pressures. Patient was re-evaluated by care team yesterday and patient still is?an inpatient bed search status. Will continue to monitor. Time: 15:58 Date: 09/22/24 Provider: Jose Prado MD Physician observation ended at 15:58 hours. Patient admitted as inpatient to psychiatry. Medications Administered Discontinued Medications Generic Name Dose Route Start Last Admin Trade Name Freq PRN Reason Stop Dose Admin Acetaminophen 975 mg 09/22/24 08:54 09/22/24 09:18 Acetaminophen 325 Mg Tablet PO 09/22/24 08:55 975 mg ONCE ONE Administration Acetaminophen 650 mg 09/22/24 14:58 09/24/24 03:09 Acetaminophen 325 Mg Tablet PO 650 mg Q6H PRN Administration Headache/Pain, Scale 1-10 Benzocaine 1 lozenge 09/23/24 19:41 09/27/24 07:48 Throat Lozenge, Medicated Lozenge MUCOUS MEM 1 lozenge Q2H PRN Administration Sore Throat Calcium Carbonate 750 mg 09/23/24 19:41 09/23/24 23:25 Calcium Carbonate 750 Mg Tab.Chew PO 750 mg Q6H PRN Administration Heartburn Carbamazepine 200 mg 09/22/24 16:00 09/22/24 16:28 Carbamazepine Er 200 Mg Tab.Er.12h PO 09/22/24 16:01 200 mg ONCE ONE Administration Carbamazepine 200 mg 09/22/24 21:00 09/22/24 21:06 Carbamazepine Er 200 Mg Tab.Er.12h PO 09/22/24 21:01 200 mg ONCE ONE Administration Carbamazepine 300 mg 09/23/24 09:00 09/24/24 22:10 Carbamazepine Er 100 Mg Tab.Er.12h PO 09/24/24 21:01 300 mg BID FANNIE Administration Carbamazepine 400 mg 09/25/24 09:00 09/27/24 07:45 Carbamazepine Er 200 Mg Tab.Er.12h PO 400 mg BID FANNIE Administration Clozapine 25 mg 09/20/24 20:45 09/20/24 20:34 Clozapine 25 Mg Tablet PO 09/20/24 20:46 25 mg ONCE ONE Administration Clozapine 25 mg 09/22/24 21:00 09/24/24 15:48 Clozapine 25 Mg Tablet PO Not Given BID FANNIE Clozapine 100 mg 09/24/24 21:00 09/24/24 22:10 Clozapine 100 Mg Tablet PO 100 mg BEDTIME FANNIE Administration Clozapine 100 mg/ Clozapine 25 125 mg 09/25/24 23:15 09/25/24 23:07 mg PO 125 mg BEDTIME FANNIE Administration Clozapine 150 mg 09/26/24 21:00 09/26/24 22:33 Clozapine 100 Mg Tablet PO 150 mg BEDTIME FANNIE Administration Diazepam 5 mg 09/20/24 09:08 09/20/24 09:20 Diazepam 10 Mg/2 Ml Cartridge IM 09/20/24 09:09 5 mg STAT STA Administration Diazepam 5 mg 09/20/24 10:24 09/20/24 10:35 Diazepam 10 Mg/2 Ml Cartridge IM 09/20/24 10:25 5 mg STAT STA Administration Diazepam 5 mg 09/21/24 09:51 09/21/24 10:07 Diazepam 10 Mg/2 Ml Cartridge IM 09/21/24 09:52 Not Given STAT STA Diazepam 4 mg 09/21/24 10:03 09/21/24 10:24 Diazepam 2 Mg Tablet PO 09/21/24 10:04 4 mg ONCE ONE Administration Diphenhydramine HCl 50 mg 09/20/24 09:08 09/20/24 09:20 Diphenhydramine Hcl 50 Mg/Ml Vial IM 09/20/24 09:09 50 mg ONCE ONE Administration Diphenhydramine HCl 50 mg 09/21/24 11:34 09/21/24 11:24 Diphenhydramine Hcl 50 Mg/Ml Vial IM 09/21/24 11:35 50 mg ONCE ONE Administration Droperidol 10 mg 09/20/24 11:21 09/20/24 11:50 Droperidol 5 Mg/2 Ml Vial IM 09/20/24 11:22 10 mg ONCE ONE Administration Haloperidol Lactate 5 mg 09/21/24 11:34 09/21/24 11:24 Haloperidol Lactate 5 Mg/Ml Vial IM 09/21/24 11:35 5 mg STAT STA Administration Hydroxyzine HCl 25 mg 09/22/24 14:58 09/26/24 23:32 Hydroxyzine Hcl 25 Mg Tablet PO 25 mg Q6H PRN Administration mild anxiety Ketamine HCl 250 mg 09/21/24 13:47 09/21/24 14:03 Ketamine Hcl 500 Mg/5 Ml Vial IM 09/21/24 13:48 250 mg ONCE ONE Administration Lisinopril 20 mg 09/22/24 16:05 09/27/24 07:44 Lisinopril 20 Mg Tablet PO 20 mg DAILY FANNIE Administration Protocol Lorazepam 2 mg 09/20/24 14:56 09/20/24 15:06 Lorazepam 1 Mg Tablet PO 09/20/24 14:57 2 mg ONCE ONE Administration Lorazepam 2 mg 09/21/24 00:20 09/21/24 00:23 Lorazepam 1 Mg Tablet PO 09/21/24 00:21 1 mg ONCE ONE Administration Melatonin 6 mg 09/23/24 19:42 09/26/24 23:32 Melatonin 3 Mg Tablet PO 6 mg BEDTIME PRN Administration Insomnia Midazolam HCl 5 mg 09/20/24 14:55 09/20/24 18:23 Midazolam Hcl 5 Mg/Ml Vial IM 09/20/24 14:56 Not Given ONCE ONE Midazolam HCl 5 mg 09/21/24 11:15 09/21/24 11:24 Midazolam Hcl 5 Mg/Ml Vial IM 09/21/24 11:16 5 mg ONCE ONE Administration Nicotine 21 mg 09/24/24 17:35 09/27/24 07:46 Nicotine 21 Mg Patch.Td24 TRANSDERMA Not Given DAILY FANNIE Nicotine Polacrilex 4 mg 09/20/24 19:43 09/21/24 08:54 Nicotine Polacrilex 2 Mg Gum BUCCAL 4 mg Q2H PRN Administration Nicotine Cravings Nicotine Polacrilex 2 mg 09/21/24 18:06 09/22/24 05:49 Nicotine Polacrilex Lozenge 2 Mg Lozenge BUCCAL 2 mg Q6H PRN Administration Nicotine Cravings Nicotine Polacrilex 2 mg 09/22/24 08:54 09/22/24 12:51 Nicotine Polacrilex 2 Mg Gum BUCCAL 2 mg Q2H PRN Administration Nicotine Cravings Nicotine Polacrilex 4 mg 09/22/24 15:58 09/26/24 23:35 Nicotine Polacrilex Lozenge 4 Mg Lozenge BUCCAL 4 mg Q1H PRN Administration Nicotine Cravings Olanzapine 5 mg 09/20/24 09:08 09/20/24 09:20 Olanzapine 10 Mg Vial IM 09/20/24 09:09 5 mg ONCE ONE Administration Olanzapine 5 mg 09/20/24 10:24 09/20/24 10:35 Olanzapine 10 Mg Vial IM 09/20/24 10:25 5 mg ONCE ONE Administration Olanzapine 10 mg 09/21/24 17:05 09/24/24 07:02 Olanzapine 10 Mg Tablet PO 10 mg RQ4H PRN Administration agitation Penicillin V Potassium 500 mg 09/25/24 16:00 09/25/24 23:06 Penicillin V Potassium 250 Mg Tablet PO 10/05/24 15:59 500 mg Q6H FANNIE Administration Penicillin V Potassium 500 mg 09/26/24 06:00 09/27/24 06:26 Penicillin V Potassium 250 Mg Tablet PO 10/05/24 05:59 500 mg Q6H FANNIE Administration Quetiapine Fumarate 100 mg 09/20/24 14:56 09/20/24 15:06 Quetiapine Fumarate 100 Mg Tablet PO 09/20/24 14:57 100 mg ONCE ONE Administration Senna/Docusate Sodium 1 tab 09/23/24 09:00 09/27/24 07:45 Sennosides/Docusate Sodium Tablet PO 1 tab DAILY FANNIE Administration Thiamine HCl 100 mg 09/22/24 16:45 09/24/24 11:00 Thiamine Hcl 100 Mg Tablet PO 100 mg DAILY FANNIE Administration Medical Decision Making Medical Decision Making [facility] Narrative: Patient is a 29 year old assigned male at with a history of cannabis use disorder and schizoaffective disorder presenting to the emergency department today with suicidal ideation and delusions. Patient's physical exam was as noted in the physical exam portion of this note. Patient intermittently agitated, threatening violence. Patient's blood work is pending however, given his level of agitation - may not be able to obtain. Patient's EKG was unremarkable. 09 ---> Patient agitated. Would not take PO medications. IM Zyprexa, Benadryl, and valium ordered. 1020 ---> Patient remains agitated. Given an additional dose of IM Zyprexa and valium as well as mechanically restrained as he began posturing and acting as if he was going to hurt others or himself. 112 ---> Patient increasingly agitated. Fighting restraints. Concern for injuring himself. Spoke with Dr. Aleman who recommended 10mg of IM Droperidol. Ordered. 1220 ---> Patient had mechanical restraints removed and was resting comfortably. 143 ---> Patient moved back over to the behavioral health pod. Became agitated again. Spoke with Dr. Aleman who recommended attempting PO medications including 100mg of Seroquel and 2mg of Ativan. Stated if he refuses those medications, to order 5mg of IM Versed for the nurse to use if necessary. Also recommended psychiatry consult placed for medication management. Orders placed. Per the CARE team, the patient is an inpatient psychiatric bed search and is on a section 12 (initial evaluation and section both completed by a community rn clinician). Differential Diagnosis Differential Diagnoses: The differential diagnosis associated with the presentation includes Psychosis Schizoffective disorder Admission/Observation Consideration of admission/observation: Escalation of care including admission/observation considered Patient will either be transferred to an appropriate psychiatric facility or admitted here to our psychiatric floor. Consult Healthcare Provider Management of the patient was discussed with: Behavioral Health Provider (spoke with the CARE team as noted in the MDM Rationale portion of this note. ) Lab Data [facility] Lab Attestation statement: I reviewed the patient's lab results. My interpretation of these results are in the MDM Rationale portion of this note. 09/24/24 17:11 09/24/24 17:11 Labs: Lab Results 09/20/24 09/21/24 09/21/24 Range/Units 14:01 14:21 14:21 WBC 17.2 H (4.8-10.8) X10*3/uL RBC 4.28 L (4.60-5.80) X10*6/uL Hgb 14.7 (14.0-18.0) g/dl Hct 41.1 L (42.0-52.0) % MCV 96.0 (80.0-98.0) fL MCH 34.3 H (27.0-33.0) pg MCHC 35.8 (31.0-36.0) g/dl RDW 11.6 (11.0-16.0) % Plt Count 320 (160-400) X10*3/uL MPV 9.4 (9.4-12.4) fL Immature Gran % (Auto) 0.8 H (0.0-0.4) % Neut % (Auto) 67.2 (45-73) % Lymph % (Auto) 20.1 (20-40) % [place] % (Auto) 10.6 (2-11) % Eos % (Auto) 0.9 (0-4) % Baso % (Auto) 0.4 (0-2) % Lymph # (Auto) 3.5 (1.2-4.9) X10*3/uL [place] # (Auto) 1.8 H (0.1-1.2) X10*3/uL Eos # (Auto) 0.2 (0.0-0.4) X10*3/uL Baso # (Auto) 0.1 (0.0-0.2) X10*3/uL Abs Immat Gran (auto) 0.14 H (0.00-0.03) X10*3/uL Absolute Neuts (auto) 11.6 H Cancelled (2.0-8.3) x10*3/uL Absolute Nucleated RBC 0.000 (0.0-0.012) X10*3/uL Nucleated RBC % (auto) 0.0 (0.0-0.2) /100WBC Smear Tech's Comments VERIFIED Sodium 140 (135-145) mmol/L Potassium 3.3 D (3.3-5.1) mmol/L Chloride 102 (96-108) mmol/L Carbon Dioxide 20 L (22-29) mmol/L Anion Gap 21 H (12-20) BUN 12 (9-16) mg/dL Creatinine 1.14 (0.5-1.4) mg/dL Estim Creat Clear Calc 99.0 Estimated GFR > 60 Random Glucose 106 (60-115) mg/dL Calcium 9.2 (8.4-10.2) mg/dL Total Bilirubin 0.7 (0.0-1.0) mg/dL AST 190 H (5-37) U/L ALT 106 H (0-40) U/L Alkaline Phosphatase 88 (39-117) U/L Total Protein 7.4 (6.5-8.0) g/dL Albumin 4.4 (3.5-5.0) g/dL Salicylates < 5.0 L (15-30) mg/dL Acetaminophen < 3 (<30) mcg/mL Ethyl Alcohol < 10 mg/dL COVID-19 (LESLI) Cancelled COVID-19 Clin Com Cancelled Influenza Type A (PCR) NEGATIVE (Negative) Influenza Type B (PCR) NEGATIVE (Negative) RSV RNA Qual (PCR) NEGATIVE (Negative) SARS-CoV-2 RNA (RT-PCR) NEGATIVE (Negative) Independent Interpretation I performed an independent interpretation of an: EKG Interpretation: I independently interpreted this EKG and am in agreement with the below findings: Vent. Rate: 80 BPM Atrial Rate: 80 BPM P-R Int: 154 ms QRS Dur: 80 ms QT Int: 364 ms P-R-T Axes: 24 112 65 degrees QTcB Int: 419 ms Normal sinus rhythm Right axis deviation Nonspecific T wave abnormality When compared with ECG of 02-Jul-2023 19:32, Nonspecific T wave abnormality now evident in Lateral leads Referred By: Marisa Bonds Electronically Signed By: Ji Roach Dictated By: Ji Roach MD Signed By: Electronically signed by Ji Roach MD 09/20/24 1555 Independent Historian Clinical information obtained from an independent historian. History obtained from or confirmed by: EMS (EMS provided additional history) Critical Care Time Critical Care Time Critical Care Time: Yes Total Critical Care Time: 49 Attestation: I spent 49 minutes of Critical Care Time with this patient. This does not include time spent on separately reported billable procedures. Discharge Plan Discharge Clinical Impression: Agitation Psychosis Qualifiers: Psychosis type: other Qualified Code(s): F28 - Other psychotic disorder not due to a substance or known physiological condition Patient Disposition: Admitted As Inpatient Interventions: Admission Worksheet (ED) Last Done: 09/22/24 15:58 Discharge Date/Time: 09/22/24 15:30
[2024-09-20 08:55] VITALS: BP 200/100; PULSE 100; O2SAT 98
[2024-09-20 08:56] VITALS: BMI 28.1
--- NOTE | 2024-09-20 08:58 | MHC.EDTECH ---
@ [id number] [facility] [employer]
--- NOTE | 2024-09-20 09:09 | PC.NURSE ---
patient presented to the ED with EMS, changed over in family room. patient is uncooperative at this time, unable to get vitals. patient appears tp be occupied by interal stimuli. patient not making eye contact. pacing/clenching fists. patient was given po medications, placed them into his mouth and swallowed water. patient then got off of stretcher and started walking towards front of ER, ultrasound technician Charles attempted to intervene with patient, security called. patient then walked into behavioral pod, this RN was thn made aware that patient had his pills in his hand. pod nurse and security made aware.
[2024-09-20] MEDS: OLANZapine 10 MG VIAL 5 MG IM ×2 (09:20→10:35)
[2024-09-20] MEDS: diazePAM 10 MG/2 ML CARTRIDGE 5 MG IM ×2 (09:20→10:35)
--- OUTSIDE RECORDS SUMMARY | 2024-09-20 09:41 | XMS_ITS | Clinical Summary ---
Author Organization [facility] ity Address [address] [place] [address] Care Team Providers Care Instructor Modeling Name Role Phone Eneida Watters MD Primary Care Provider Surgical History Surgery Date Site/Laterality Comments OTHER SURGICAL HISTORY PROCEDURE: DENIES PREVIOUS SURGERY Medical History Medical History Date Comments Anxiety 01/11/2014 DX:Anxiety PTSD (post-traumatic stress disorder) 01/11/2014 DX:PTSD (post-traumatic stress disorder) History of substance abuse ( [facility] V24, [facility] V28) 01/11/2014 DX:History of substance abus e ([facility]) ADHD (attention deficit hype ractivity disorder) 01/11/2014 DX:ADHD (attention deficit hyperactivity disorder); COMMENT: Was on adderral as a child Family History Medical History Relation Name Comments Diabetes Maternal Grandmother Stroke Maternal Grandmother Depression Mother Relation Name Status Comments Father Alive Maternal Grandmother Mother Alive Social History Tobacco Use Types Packs/Day Years Used Date Smoking Tobacco: Every Day Cigarettes Alcohol Use Standard Drinks/Week Comments Yes 0 (1 standard drink = 0.6 oz pur e alcohol) Sex and Gender Information Value Date Recorded Sex Assigned at Not on file Legal Sex Male 9:14 AM EST Gender Identity Not on file Sexual Orientation Not on file Obstetrics History Plan of Treatment Health Maintenance Due Date Last Done Comments COVID-19 Vaccine ( season) 2023 Depression Screening 03/01/2024 DTaP,Tdap,and Td Vaccines (8 - Td or Tdap) 08/10/2024 08/10/2014, 12/23/2004, 06/06/1997, Additional history exists Influenza Vaccine (#1) 2024 Hepatitis B Vaccines Completed 1993, 1993, 1993 HIB Vaccines Completed 09/02/1994, 05/1993, 1993, Additional history exists IPV Vaccines Completed 06/06/1997, 06/1994, 1993, Additional history exists MMR Vaccines Completed 06/06/1997, 06/11/1994 Meningococcal ACWY Vaccine Aged Out 06/08/2008 N o longer eligible based on patient's age to complete this topic HPV Vaccines Aged Out No longer eligi ble based on patient's age to complete this topic Hepatitis A Vaccines Aged Out No long er eligible based on patient's age to complete this topic Meningococcal B Vaccine Aged Out No l onger eligible based on patient's age to complete this topic Pneumococcal Vaccine: Pediatrics (0 to 5 Years) and At-Risk Patients (6 to 49 Years) Aged Out No longer eligible based on patient's age to complete this topic RSV Immunization Patients Under 20 months Aged Out No longer eligible based on patient's age to complete this topic Varicella Vaccines Aged Out No longer eligible based on patient's age to complete this topic Care Teams Instructor Modeling Relationship Specialty Start Date End Date Eneida Watters MD PCP - General Internal Medicine 01/23/20
--- OUTSIDE RECORDS SUMMARY | 2024-09-20 09:41 | XMS_ITS | Encounter Summary ---
Author Organization [employer] Address [address] [place] [address] [place] [address] Care Team Providers Care Bailiff Name Role Phone Gloria Serrano Primary Care Provider [phone] Encounter Details Date Type Department Care Team (Late st Contact Info) Description 04/13/2022 Abstract [facility] MEDICINE [address] [place] [address] Gloria Serrano FNP [address] [place] [address] [place] [address] Social History Tobacco Use Types Packs/Day Years Used Date Smoking Tobacco: Every Day Cigarettes Passive Smoke Exposure: Current Smokeless Tobacco: Never Alcohol Use Standard Drinks/Week Comments Not Currently 0 (1 standard drink = 0.6 oz pur e alcohol) Sex and Gender Information Value Date Recorded Sex Assigned at Male 12/29/2021 10:19 AM EDT Legal Sex Male 10:19 AM EDT Gender Identity Male 12/29/2021 10:19 AM EDT Sexual Orientation Straight 12/29/2021 10 :19 AM EDT documented as of this encounter Plan of Treatment Not on file documented as of this encounter Visit Diagnoses Not on filedocumented in this encounter Care Teams Bailiff Relationship Specialty Start Date End Date Gloria Serrano FNP PCP - General Family Medicine 10/26/21 08/20/22 documented as of this encounter
--- NOTE | 2024-09-20 10:40 | PC.NURSE ---
unable to scan diazepam administration as diazepam cartridge was accidentally wasted in sharps bin after administration
[2024-09-20 12:05] VITALS: BP 140/80; PULSE 101; RESP 18; TEMP 36.7; O2SAT 100
--- NOTE | 2024-09-20 12:08 | PC.NURSE ---
Care of Pt assumed at 1200 for lunch break coverage. Report received that Pt is currently restrained d/t severe agitation and violent/combative behavior. Per report Pt has received IM medications as part of plan of care. At time care assumed, Pt can be observed shouting foul language from his bed and pulling at restraints. P
[2024-09-20 12:20] VITALS: BP 116/70; PULSE 95; RESP 17; O2SAT 97
--- NOTE | 2024-09-20 12:20 | PC.NURSE ---
Care of Pt assumed at 1200 for lunch break coverage. Report received that Pt is currently restrained d/t severe agitation and violent/combative behavior. Per report Pt has received IM medications as part of plan of care. At time care assumed, Pt can be observed shouting foul language from his bed and pulling at restraints. Pt becomes increasingly calmer and staff is able to obtain a set of VS at 1205. Discussed with zinc furnace charger that Pts behavior has improved and VS have now been obtained safely. Will continue to monitor.
--- NOTE | 2024-09-20 13:12 | PC.NURSE ---
RE: restraint At approximately 0900 Adi was moved to the pod from the ER due to inability to maintain safety, manic behaviors and pacing that was not appropriate for the Emergency Department. Upon arrival to the pod, pt began pacing, expressing frustration though unclear what the frustration was about as he would not explain or speak with staff. This RN attempted to speak with patient and gain insight to situation that caused him to come to the ER today. Pt continued to pace around pod, occasionally yelling out I'm gonna fuck em up . Pt was visualized holding oral medications that were administered in the ED but patient did not take. Pt did hand over medications to security but continued to be disruptive the milieu and threatening. Decision was made to administer IM medications for patient and staff safety as well as the safety of other patients in the milieu. Pt was verbally redirected to his room ( 6) by security and ED techs. Pt began pacing around the room, refusing to sit down for medicating. Pt did require a physical hold which moved into a physical restraint (velcro restraints) after pt attempted to swing at a airline security representative. Pt was placed into four point restraints and given first round of injections to bilateral vastus lateralis. After about an hour, pt continued to remain agitated, yelling, threatening staff, unable to contract for safety, swinging arms and legs against bed. Pt required second round of IM injections which were also given in bilateral vastus lateralis. Pt remained in restraints, refusing to allow for vital signs, attempting to pull arms away when vitals were attempted At around 1150, pt received one more round of IM medication after being assessed by MD Aleman and JEANIE Cunningham. Pt took droperidol (1/2 dose in right deltoid and 1/2 dose in left deltoid). after some time pt did calm down and allow for vitals but did get agitated and refused vitals again At 1305, pt was moved to the ER for monitoring due to the amount of medications given. Pt was moved to ED stretcher without issue, placed back in restraints (per request of [employer] security consultant) Report given to YAHAIRA Campos
--- NOTE | 2024-09-20 13:51 | PC.NURSE ---
assumed care of patient aprox 1300, patient moved to main ED for tele monitoring post medication admin. released from restraints at 1350, patient VSS, patient has been sleeping but arousable to verbal stimuli at this time. patient remains on tele monitoring
--- NOTE | 2024-09-20 14:21 | PC.NURSE ---
patient awake and alert, eating lunch.
[2024-09-20 14:32] VITALS: RESP 16
--- NOTE | 2024-09-20 14:34 | PC.NURSE ---
Pt moved back to pod from ED, agitated upon arrival, pacing around
--- NOTE | 2024-09-20 15:09 | PC.NURSE ---
Report from Jennifer, Patient yelling, posturing, states he is going to , agrees to PO meds. Sitter and secuirty in the place for safety
[2024-09-20 15:18] LABS: Resp Syncy Virus RNA Qual PCR NEGATIVE (Negative); SARS COV2 PCR INHOUSE NEGATIVE (Negative)
--- NOTE | 2024-09-20 16:27 | PC.NURSE ---
Patient up ambualting around BH pod, trying to go into other patient rooms, redirectable, sitter in place for safety
--- NOTE | 2024-09-20 16:34 | PC.NURSE ---
Patient coming out of room saying i am scared, i am about to get hit so hard:, sitter pacing with him for safety.
[2024-09-20 18:04] VITALS: RESP 18
--- NOTE | 2024-09-20 23:31 | PC.NURSE ---
Assumed care of this Pt at 3745. Pt awake walking around valerie martinez.
[2024-09-21] VITALS (8 sets, daily range): BP systolic 157–200; BP diastolic 80–107; PULSE 100–120; RESP 12–18; TEMP 36–36.8; O2SAT 95–98
--- NOTE | 2024-09-21 00:37 | PC.NURSE ---
Pt awake, walking back and forth around milieu, requesting Ativan. Provider Jacquie Álvarez made aware. Upon administration Pt only observed to swallow one of 2 pills, Pt then preceded to throw other pill on floor, stating I will take that one when my mother is here .
--- NOTE | 2024-09-21 03:59 | PC.NURSE ---
Patient pacing back and forth, disruptive behavior with some outburst. Security in milieu, Pt refusing to stay in room. Needing multiple redirections.
--- NOTE | 2024-09-21 07:34 | PC.NURSE ---
pt reports he has not been taking any meds for months, unsure of when he last took his meds regularly. pt pacing in the common area, friendly with staff and security, asked for nicorette gum and informed he can have at 0825
--- NOTE | 2024-09-21 08:22 | MHC.CARE ---
Pt will be an inpatient psychiatric bedsearch
--- NOTE | 2024-09-21 10:14 | PC.NURSE ---
pt asked for ativan po, and ordered valium IM, changed to valium po by and pt now states he doesn't want it at this time, pt pacing and started pounding his chest in front of security, pt told that if he wants to do that then he should do it in his room. pt has been pacing all morning and occasionally loud, making paranoid statements they are stealing my money , they are trying to frame me
--- NOTE | 2024-09-21 11:00 | PC.NURSE ---
continues to refuse labs
--- NOTE | 2024-09-21 12:04 | PC.NURSE ---
at approx 1100 pt became agitated when another pt looked at his cup of water and then yelled at the other pt. that pt left the area but Adi followed him and stepped into his personal space and staff intervened, security was called to the pod and they told the pt that he needed to go to his room, pt went to his room but then opened the door and started to come out multiple times and repeatedly told by security to go back in, pt then stepped into the personal space of security and made threatening statements and had both fist clenched. pt was placed in restraints at 1115 and medicated with IM zoe Pearce and benadryl. Arreola to bedside shortly after. pt has been in restraints for 1 hour and continues to yell and occasionally thrash in bed. has made threats to kill staff and their families multiple times while in restraints. sitter at bedside
--- NOTE | 2024-09-21 13:39 | PHA.MEDREC ---
Addendum entered by Radha Talley RPh 09/21/24 14:50: MED REC REVIEWED BY [facility] Original Note: Pharmacy Consult ? Medication Reconciliation Pharmacy has reviewed the medication reconciliation done by nursing. no claim history
[2024-09-21 14:33] LABS: Hematocrit 41.1 % (42.0-52.0); Hemoglobin 14.7 g/dl (14.0-18.0); Imm Gran Abs Auto 0.14 X10*3/uL (0.00-0.03); Imm Gran Pct Auto 0.8 % (0.0-0.4); Lymphocytes Absolute Auto 3.5 X10*3/uL (1.2-4.9); MANUAL DIFF FLAG SCAN; Mean Corpuscular HGB Conc 35.8 g/dl (31.0-36.0); Mean Corpuscular Hemoglobin 34.3 pg (27.0-33.0); Mean Corpuscular Volume 96.0 fL (80.0-98.0); NRBC Abs Auto 0.000 X10*3/uL (0.0-0.012); NRBC Pct Auto 0.0 /100WBC (0.0-0.2); Platelet Count 320 X10*3/uL (160-400); Red Blood Count 4.28 X10*6/uL (4.60-5.80); SCAN SMEAR FLAG 1
[2024-09-21 14:35] LABS: White Blood Count 17.2 X10*3/uL (4.8-10.8)
[2024-09-21 14:42] LABS: Acetaminophen LAB < 3 mcg/mL (<30); Salicylate < 5.0 mg/dL (15-30)
--- NOTE | 2024-09-21 15:07 | PC.NURSE ---
all restraints removed, pt calm and sitting on side of bed, speech clear, states I feel broken unable to elaborate,
--- NOTE | 2024-09-21 15:53 | PC.NURSE ---
pt currently calm and cooperative, decaf coffee given and drinking, pt was unsteady on feet when standing and encouraged to stay in bed, 1-[address] to redirect pt from getting up, pt has closest room to RN station, skin wpd, will continue to monitor
[2024-09-21 16:38] LABS: Alanine Aminotransferase 106 U/L (0-40); Albumin Level 4.4 g/dL (3.5-5.0); Alkaline Phosphatase 88 U/L (39-117); Anion Gap 21 (12-20); Aspartate Amino Transferase 190 U/L (5-37); Blood Urea Nitrogen 12 mg/dL (9-16); Calcium 9.2 mg/dL (8.4-10.2); Carbon Dioxide 20 mmol/L (22-29); Chloride 102 mmol/L (96-108); Creatinine Clr Calc Pharmacy 99.0; Estimated Glomerular Filt Rate > 60; Potassium 3.3 mmol/L (3.3-5.1); Sodium 140 mmol/L (135-145); Total Protein 7.4 g/dL (6.5-8.0)
--- NOTE | 2024-09-21 17:18 | PC.NURSE ---
Addendum entered by Frank Montano RN 09/21/24 17:19: pacing in ED, has made a few oppositional statements, you guys are going to see it now , pt asked what med he was given and why, and when told he became agitated and slammed the doors in the ed, security to pod and pt continues to pace Original Note: pt now has a steady gait, 10
--- NOTE | 2024-09-21 17:36 | PC.NURSE ---
pt pacing the common are, pt walked by room 3 looking in and making faces and making hand gestures to the pt in there, pt was told initially not to do it but went right back and did it again. pt again confronted by staff to not do this and pt says that he now understands
--- NOTE | 2024-09-21 17:48 | MHC.EDTECH ---
Patient requestint to retrieve a number from his phone. This tech discovered no belongings list had been completed. This tech located one patient belongings bag with patients name on it in [facility]. Unable to locate patients phone with belongings. Patient unsure if he left it at home or brought it to the facility. In the belongings bag there was a pair of socks, red sneakers two pairs of shorts and a t-shirt. Patients items moved to pod locker #4.
[2024-09-21] MEDS: Nicotine Polacrilex Lozenge 2 MG LOZENGE BUCCAL (19:38)
[2024-09-22] MEDS: Nicotine Polacrilex Lozenge 2 MG LOZENGE BUCCAL ×2 (00:39→05:49)
--- NOTE | 2024-09-22 04:50 | PC.NURSE ---
pt has been mostly calm, cooperative, obeys requests. a few short episodes where patient feels overwhelmed/agitated by internal stimuli, becoming tearful, but was able to be deescalated by staff. not adversarial or combative. accepted PO med. currently pacing listening to music. honors staff requests to not stare into patient room and to keep voice at a non disruptive level.
[2024-09-22 05:00] VITALS: BP 139/91; PULSE 95; RESP 18; TEMP 36.6; O2SAT 99
--- NOTE | 2024-09-22 06:48 | PC.NURSE ---
not appearing in status board as changed over. pt is changed over and belongings secured in pod locker #4
--- NOTE | 2024-09-22 09:20 | PC.NURSE ---
Assumed care of pt at 0700. Pt up oob pacing around unit, listening to music/dancing. Respirations even and unlabored, no increased wob/sob noted, appears in no distress. Pt requesting Tylenol for bilateral knee/thigh pain and Nicotine Gum instead of Lozenges. MD Prado aware- order changed. Pt medicated per APR with PRN Zyprexa d/t agitation, PO Tylenol, and Nicotine Gum. Pt remains up oob ambulating around the unit, engaging in conversation with staff, and listening to music.
[2024-09-22 16:17] VITALS: BMI 28.1
[2024-09-22 16:27] VITALS: BP 129/92
[2024-09-22] MEDS: Nicotine Polacrilex Lozenge 4 MG LOZENGE BUCCAL ×4 (16:28→21:09)
[2024-09-22] MEDS: carBAMazepine ER 200 MG TAB.ER.12H PO ×2 (16:28→21:06)
[2024-09-22 16:30] VITALS: BP 129/92; PULSE 99; RESP 18
--- NOTE | 2024-09-22 16:47 | PC.ADMIT ---
Addendum entered by Nano Bryant RN 09/22/24 17:24: Admission completed. Safety tool & treatment plan completed. Original Note: Pt arrived to the unit at 1535 from [facility] ED POD via wheelchair. Pt placed on 15 minute checks. Pt signed in as a CV. Pt immediately signed a 3-day notice. Skin check/contraband search completed. No skin issues noted. Legals signed. Pt oriented to unit. Pt was BIBA after being assessed by [facility] at his home. Pt was making suicidal statements and stated he was having command AH. Pt arrived to ED agitated and required multiple medication and physical restraints. Pt is now calm, cooperative, and in behavioral control. Pt is a current smoker and has requested nicotine replacement. Pt reports drinking alcohol daily. CIWA ordered. Addiction consult placed. VSS. EKG NSR. WBC noted to be elevated at 17.2. Pt currently refusing UA that has been ordered.
[2024-09-23] MEDS: Nicotine Polacrilex Lozenge 4 MG LOZENGE BUCCAL ×3 (01:12→20:03)
[2024-09-23 08:00] VITALS: BP 133/70; PULSE 105; RESP 18; TEMP 36.4; O2SAT 99
[2024-09-23] MEDS: carBAMazepine ER 100 MG TAB.ER.12H 300 MG PO ×2 (08:35→21:18)
[2024-09-23 08:39] VITALS: BP 133/70
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
[2024-09-23 20:00] VITALS: BP 149/69; PULSE 110; RESP 14; TEMP 36.4; O2SAT 97
[2024-09-24] MEDS: Nicotine Polacrilex Lozenge 4 MG LOZENGE BUCCAL ×6 (02:05→21:31)
[2024-09-24] MEDS: Throat Lozenge, Medicated LOZENGE 1 LOZENGE MUCOUS MEM ×2 (06:04→15:30)
--- NOTE | 2024-09-24 07:22 | PC.NURSE ---
verbal altercation with peer. posturing threatening. need security to assist is him as he was difficult to re direct.
[2024-09-24] MEDS: carBAMazepine ER 100 MG TAB.ER.12H 300 MG PO ×2 (10:59→22:10)
[2024-09-24 11:00] VITALS: BP 133/66; PULSE 100; RESP 20; TEMP 36.7; O2SAT 98
--- NOTE | 2024-09-24 16:44 | P.PNPSI_ITS ---
Subjective Subjective Date of Service: 09/24/24 Reason For Visit: jazmine Subjective Notes: 3 Day Interim History: Active on unit. social with peers. attending groups. medication compliant. Patient reports he is happy to be on the unit and getting help . Focused on discharging on his 3 day notice to return to work. denies withdrawal symptoms; BEBO BLANDON'd. denies SI/HI/VH/AH. Clozaril increased to 100mg PO bedtime. Labs ordered for today. Medication Compliance: Yes Side effects from medications: No Attending Groups: Yes Mental Status Exam Mental Status Exam Narrative: Pt is alert and oriented; behavior is cooperative and calm, dancing around to music at times; dressed in casual attire; mood is described as sad ; eye contact appropriate; Speech is normal rate, volume and not pressured; thought process is organized; Thought content is on tx; denies SI/HI/VH/AH. Diagnostics Vital Signs (24Hr): Vital Signs - 24 hr 09/23/24 20:00 09/24/24 11:00 09/24/24 11:00 Temperature 97.6 F 98.1 F Pulse Rate 110 H 100 Respiratory Rate 14 20 Blood Pressure 149/69 H 133/66 133/66 Pulse Oximetry 97 98 Oxygen Delivery Method Room Air Room Air BMI result Body Mass Index 28.1 Labs 09/21/24 14:21 09/21/24 14:21 Medications Medications Current Medications Acetaminophen (Acetaminophen 325 Mg Tablet) 650 mg PO Q6H PRN PRN Reason: Headache/Pain, Scale 1-10 Last Admin: 09/24/24 03:09 Dose: 650 mg Al Hydroxide/Mg Hydroxide (Magnesium Hydrox/Alum Hydrox 30 Ml Oral.Susp) 30 ml PO Q6H PRN PRN Reason: Heartburn/Nausea Benzocaine (Throat Lozenge, Medicated Lozenge) 1 lozenge MUCOUS MEM Q2H PRN PRN Reason: Sore Throat Last Admin: 09/24/24 15:30 Dose: 1 lozenge Calcium Carbonate (Calcium Carbonate 750 Mg Tab.Chew) 750 mg PO Q6H PRN PRN Reason: Heartburn Last Admin: 09/23/24 23:25 Dose: 750 mg Carbamazepine (Carbamazepine Er 100 Mg Tab.Er.12h) 300 mg PO BID FANNIE Stop: 09/24/24 21:01 Last Admin: 09/24/24 10:59 Dose: 300 mg Carbamazepine (Carbamazepine Er 200 Mg Tab.Er.12h) 400 mg PO BID FANNIE Clozapine (Clozapine 100 Mg Tablet) 100 mg PO BEDTIME FANNIE Hydroxyzine HCl (Hydroxyzine Hcl 25 Mg Tablet) 25 mg PO Q6H PRN PRN Reason: mild anxiety Last Admin: 09/24/24 07:01 Dose: 25 mg Lisinopril (Lisinopril 20 Mg Tablet) 20 mg PO DAILY FANNIE; Protocol Last Admin: 09/24/24 11:00 Dose: 20 mg Magnesium Hydroxide (Milk Of Magnesia 30 Ml Oral.Susp) 30 ml PO DAILY PRN PRN Reason: Constipation Melatonin (Melatonin 3 Mg Tablet) 6 mg PO BEDTIME PRN PRN Reason: Insomnia Last Admin: 09/23/24 23:23 Dose: 6 mg Nicotine Polacrilex (Nicotine Polacrilex Lozenge 4 Mg Lozenge) 4 mg BUCCAL Q1H PRN PRN Reason: Nicotine Cravings Last Admin: 09/24/24 13:57 Dose: 4 mg Nicotine Polacrilex (Nicotine Polacrilex 2 Mg Gum) 2 mg BUCCAL Q2H PRN PRN Reason: Nicotine Cravings Olanzapine (Olanzapine 10 Mg Tablet) 10 mg PO RQ4H PRN PRN Reason: agitation Last Admin: 09/24/24 07:02 Dose: 10 mg Senna/Docusate Sodium (Sennosides/Docusate Sodium Tablet) 1 tab PO DAILY FANNIE Last Admin: 09/24/24 09:54 Dose: Not Given Allergies Allergies Allergy/AdvReac Type Severity Reaction Status Date / Time haloperidol (From Haldol) AdvReac Severe dystonia Verified 09/20/24 09:09 Assessment & Plan Assessment & Plan (1) Schizoaffective disorder, bipolar type: Status: Acute Code(s): F25.0 - Schizoaffective disorder, bipolar type (2) Alcohol use disorder: Status: Acute Code(s): F10.90 - Alcohol use, unspecified, uncomplicated Plan Patient is a 29 year old male with hx of schizoaffective d/o and alcohol use d/o who arrived to ER via ambulance from home due to patient reporting suicidal ideation secondary to medication noncompliance. Plan: CV 15 minute safety checks Continue previous medications per last admission [facility] protocol Obtain collateral Encourage groups Referral to outpatient psychiatric providers Discharge planning 09/24:Active on unit. social with peers. attending groups. medication compliant. Patient reports he is happy to be on the unit and getting help . Focused on discharging on his 3 day notice to return to work. denies withdrawal symptoms; BEBO Alston denies SI/HI/VH/AH. Clozaril increased to 100mg PO bedtime. Labs ordered for today. Patient educated on: diagnosis, medication risk/benefits and therapeutic strategies Reason for continued inpatient stay Substantial Risk for: med/psych decompensation Time Spent With Patient Time: Total time managing care of this patient today _20___ minutes.
--- NOTE | 2024-09-24 17:01 | MHC.RECOVRN ---
Addendum entered by Diamond Em RN 09/24/24 17:06: Pt declined outpatient NASH appointment and declined to speak to the Addiction Medicine provider in regards to DOLORES (he had originally stated he drinks every day). Pt states he doesn't have time for that . Original Note: Met with pt in 307-1 after receiving addiction consult to discuss alcohol consumption, recovery supports and other resources. Upon approach pt is pleasant, no signs of distess. During our discussion pt stated that he mainly wants to speak about nicotine and masturbation addiction. Pt stated he prayed to God to take his masturbation away and it went away immediately. Pt stated in terms of drinking he was only having small sips . Pt given written materials on treatment modalities for addiction. Discussed nicotine replacement therapy and coping skills. Denies any questions or concerns at the moment. States he just wanted a listening ear .
[2024-09-24 17:26] LABS: MANUAL DIFF FLAG NO
[2024-09-24 17:27] LABS: Hematocrit 40.9 % (42.0-52.0); Hemoglobin 14.2 g/dl (14.0-18.0); Imm Gran Abs Auto 0.06 X10*3/uL (0.00-0.03); Imm Gran Pct Auto 0.4 % (0.0-0.4); Lymphocytes Absolute Auto 1.6 X10*3/uL (1.2-4.9); Mean Corpuscular HGB Conc 34.7 g/dl (31.0-36.0); Mean Corpuscular Hemoglobin 34.4 pg (27.0-33.0); Mean Corpuscular Volume 99.0 fL (80.0-98.0); NRBC Abs Auto 0.000 X10*3/uL (0.0-0.012); NRBC Pct Auto 0.0 /100WBC (0.0-0.2); Neut%MD 79.9 %; Platelet Count 316 X10*3/uL (160-400); Red Blood Count 4.13 X10*6/uL (4.60-5.80); WBCANC 14.9 X10*3/uL; White Blood Count 14.9 X10*3/uL (4.8-10.8)
[2024-09-24 17:32] LABS: Ammonia 24 umol/L (13-55)
[2024-09-24] MEDS: Nicotine 21 MG PATCH.TD24 TRANSDERMA (17:45)
[2024-09-24 17:47] LABS: Alanine Aminotransferase 133 U/L (0-40); Albumin Level 4.2 g/dL (3.5-5.0); Alkaline Phosphatase 95 U/L (39-117); Anion Gap 15 (12-20); Aspartate Amino Transferase 126 U/L (5-37); Blood Urea Nitrogen 12 mg/dL (9-16); Calcium 9.2 mg/dL (8.4-10.2); Carbon Dioxide 26 mmol/L (22-29); Chloride 103 mmol/L (96-108); Creatinine Clr Calc Pharmacy 113.9; Estimated Glomerular Filt Rate > 60; Potassium 4.6 mmol/L (3.3-5.1); Sodium 139 mmol/L (135-145); Total Protein 7.2 g/dL (6.5-8.0)
[2024-09-24 19:40] VITALS: BP 134/69; PULSE 108; RESP 16; TEMP 36.4; O2SAT 97
[2024-09-25] MEDS: Throat Lozenge, Medicated LOZENGE 1 LOZENGE MUCOUS MEM ×5 (04:17→22:26)
[2024-09-25 07:46] VITALS: BP 142/75; PULSE 122; RESP 16; TEMP 35.9; O2SAT 96
[2024-09-25] MEDS: carBAMazepine ER 200 MG TAB.ER.12H 400 MG PO ×2 (09:16→23:06)
[2024-09-25] MEDS: Nicotine 21 MG PATCH.TD24 TRANSDERMA (09:17)
--- NOTE | 2024-09-25 09:38 | P.PNPSI_ITS ---
Subjective Subjective Date of Service: 09/25/24 Reason For Visit: jazmine Subjective Notes: 3 Day Interim History: Active on unit. social with peers. attending groups. Patient reports feeling calm today because of medications. denies any side effects from restarting medications. 3 day notice up on 09/27/24. denies SI/HI/VH/AH. Clozaril increased to 125mg PO bedtime. Medication Compliance: Yes Side effects from medications: No Attending Groups: Yes Mental Status Exam Mental Status Exam Narrative: Pt is alert and oriented; behavior is cooperative and calm, dancing around to music at times; dressed in casual attire; mood is described as sad ; eye contact appropriate; Speech is normal rate, volume and not pressured; thought process is organized; Thought content is on tx; denies SI/HI/VH/AH. Diagnostics Vital Signs (24Hr): Vital Signs - 24 hr 09/24/24 11:00 09/24/24 11:00 09/24/24 19:40 Temperature 98.1 F 97.6 F Pulse Rate 100 108 H Respiratory Rate 20 16 Blood Pressure 133/66 133/66 134/69 Pulse Oximetry 98 97 Oxygen Delivery Method Room Air Room Air 09/25/24 07:46 Temperature 96.6 F L Pulse Rate 122 H Respiratory Rate 16 Blood Pressure 142/75 H Pulse Oximetry 96 Oxygen Delivery Method Room Air BMI result Body Mass Index 28.1 Labs 09/24/24 17:11 09/24/24 17:11 Labs: Laboratory Results - last 48 hr 09/24/24 17:11 WBC 14.9 H RBC 4.13 L Hgb 14.2 Hct 40.9 L MCV 99.0 H MCH 34.4 H MCHC 34.7 RDW 11.5 Plt Count 316 MPV 9.1 L Immature Gran % (Auto) 0.4 Neut % (Auto) 79.9 H Lymph % (Auto) 10.5 L [place] % (Auto) 7.7 Eos % (Auto) 1.1 Baso % (Auto) 0.4 Lymph # (Auto) 1.6 [place] # (Auto) 1.1 Eos # (Auto) 0.2 Baso # (Auto) 0.1 Abs Immat Gran (auto) 0.06 H Absolute Neuts (auto) 11.9 H Absolute Nucleated RBC 0.000 Nucleated RBC % (auto) 0.0 Sodium 139 Potassium 4.6 D Chloride 103 Carbon Dioxide 26 Anion Gap 15 BUN 12 Creatinine 0.99 Estim Creat Clear Calc 113.9 Estimated GFR > 60 Random Glucose 110 Calcium 9.2 Total Bilirubin 0.3 Direct Bilirubin 0.1 AST 126 H ALT 133 H Alkaline Phosphatase 95 Ammonia 24 Total Protein 7.2 Albumin 4.2 TSH 0.76 Medications Medications Current Medications Acetaminophen (Acetaminophen 325 Mg Tablet) 650 mg PO Q6H PRN PRN Reason: Headache/Pain, Scale 1-10 Last Admin: 09/24/24 03:09 Dose: 650 mg Al Hydroxide/Mg Hydroxide (Magnesium Hydrox/Alum Hydrox 30 Ml Oral.Susp) 30 ml PO Q6H PRN PRN Reason: Heartburn/Nausea Benzocaine (Throat Lozenge, Medicated Lozenge) 1 lozenge MUCOUS MEM Q2H PRN PRN Reason: Sore Throat Last Admin: 09/25/24 09:16 Dose: 1 lozenge Calcium Carbonate (Calcium Carbonate 750 Mg Tab.Chew) 750 mg PO Q6H PRN PRN Reason: Heartburn Last Admin: 09/23/24 23:25 Dose: 750 mg Carbamazepine (Carbamazepine Er 200 Mg Tab.Er.12h) 400 mg PO BID FANNIE Last Admin: 09/25/24 09:16 Dose: 400 mg Clozapine (Clozapine 100 Mg Tablet) 100 mg PO BEDTIME FANNIE Last Admin: 09/24/24 22:10 Dose: 100 mg Hydroxyzine HCl (Hydroxyzine Hcl 25 Mg Tablet) 25 mg PO Q6H PRN PRN Reason: mild anxiety Last Admin: 09/24/24 07:01 Dose: 25 mg Lisinopril (Lisinopril 20 Mg Tablet) 20 mg PO DAILY [facility]; Protocol Last Admin: 09/25/24 09:20 Dose: Not Given Magnesium Hydroxide (Milk Of Magnesia 30 Ml Oral.Susp) 30 ml PO DAILY PRN PRN Reason: Constipation Melatonin (Melatonin 3 Mg Tablet) 6 mg PO BEDTIME PRN PRN Reason: Insomnia Last Admin: 09/24/24 22:10 Dose: 6 mg Nicotine (Nicotine 21 Mg Patch.Td24) 21 mg TRANSDERMA DAILY [facility] Last Admin: 09/25/24 09:17 Dose: 21 mg Nicotine Polacrilex (Nicotine Polacrilex Lozenge 4 Mg Lozenge) 4 mg BUCCAL Q1H PRN PRN Reason: Nicotine Cravings Last Admin: 09/24/24 21:31 Dose: 4 mg Olanzapine (Olanzapine 10 Mg Tablet) 10 mg PO RQ4H PRN PRN Reason: agitation Last Admin: 09/24/24 07:02 Dose: 10 mg Senna/Docusate Sodium (Sennosides/Docusate Sodium Tablet) 1 tab PO DAILY FANNIE Last Admin: 09/25/24 09:16 Dose: 1 tab Allergies Allergies Allergy/AdvReac Type Severity Reaction Status Date / Time haloperidol (From Haldol) AdvReac Severe dystonia Verified 09/20/24 09:09 Assessment & Plan Assessment & Plan (1) Schizoaffective disorder, bipolar type: Status: Acute Code(s): F25.0 - Schizoaffective disorder, bipolar type (2) Alcohol use disorder: Status: Acute Code(s): F10.90 - Alcohol use, unspecified, uncomplicated Plan Patient is a 29 year old male with hx of schizoaffective d/o and alcohol use d/o who arrived to ER via ambulance from home due to patient reporting suicidal ideation secondary to medication noncompliance. Plan: CV 15 minute safety checks Continue previous medications per last admission [facility] protocol Obtain collateral Encourage groups Referral to outpatient psychiatric providers Discharge planning 09/24:Active on unit. social with peers. attending groups. medication compliant. Patient reports he is happy to be on the unit and getting help . Focused on discharging on his 3 day notice to return to work. denies withdrawal symptoms; [facility] DC'd. denies SI/HI/VH/AH. Clozaril increased to 100mg PO bedtime. Labs ordered for today. 09/25: Active on unit. social with peers. attending groups. Patient reports feeling calm today because of medications. denies any side effects from restarting medications. 3 day notice up on 09/27/24. denies SI/HI/VH/AH. Clozaril increased to 125mg PO bedtime. Patient educated on: diagnosis and medication risk/benefits Reason for continued inpatient stay Substantial Risk for: med/psych decompensation Time Spent With Patient Time: Total time managing care of this patient today _20___ minutes.
[2024-09-25] MEDS: Nicotine Polacrilex Lozenge 4 MG LOZENGE BUCCAL ×4 (10:45→23:07)
--- NOTE | 2024-09-25 15:14 | PM.EVENT ---
Event Note Date of Service: 09/25/24 Event Note: Patient noted to have elevated WBC, ANC. We will order CRP and ESR, also chest x-ray and UA to rule out infection Time Spent With Patient Time: Total time managing care of this patient today ____ minutes.
--- NOTE | 2024-09-25 15:24 | HO.PM.IMCN ---
History of Present Illness Data of Consult Service Date: 09/25/24 Primary Care Provider: [facility] Reason for consult: Elevated WBCs 29-year-old male with a past medical history of EtOH disorder, psychosis, cannabis use disorder, tobacco use disorder, schizoaffective disorder bipolar type. Patient was admitted due to suicidal ideation. He was not adherent to his medication regime prior to admission. Patient is seen today for elevated WBCs. Also has elevated ANC. Patient has a history dating back to 2021 with intermittent elevation of WBC, also has chronic macrocytic anemia, and chronic elevation in his LFTs. Patient has a history of EtOH use. Patient denies any history of IVDA, denies any shortness of breath, cough, dysuria, abdominal pain or any other concerning symptoms except for dental pain. He reports that he has a tooth in the right upper jaw and as well as a carious tooth on the left side. On exam the tooth is very decayed, with surrounding gingivitis. Review of Systems Review of Systems: Denies any shortness of breath, chest pain, dizziness, lightheadedness, abdominal pain or discomfort, nausea vomiting or diarrhea PMFSH Medical History Schizoaffective disorder, bipolar type Bipolar 1 disorder Alcohol abuse Social History Household Members: Family Household Members Other:: Mother Housing: Apartment Do you presently have visiting nurse or other home services: No Unable to assess alcohol history related to: Refusing to respond Alcohol intake: current Alcohol intake frequency: 3 or more drinks per day Alcohol type: hard liquor Comment: Dr. Campbell Patient Tobacco Use Status: Current everyday Tobacco user Tobacco use type: Cigarette and Smokeless Tobacco Cigarette Packs Per Day: 1 Cigarettes Per Day: 20.0 Years Smoked: ''a long time'' Smoked in Last 30 Days: Yes e-Cigarette/Vaping Use: Currently Using Patient Interested in Nicotine Replacement: Yes Patient Given Instructions on How to Stop Smoking: Yes Date Education Initiated: 09/22/24 Second Hand Smoke Exposure: Yes Substance Use Type: Marijuana Currently Displaying Signs/Symptoms of Drug Intoxication Withdrawal: No Have you been hit, kicked, punched, or otherwise hurt by someone within the past year? If so, by whom?: No Do you feel safe in your current relationship?: No Current Relationship Is there a partner from a previous relationship who is making you feel unsafe now?: No Are you made to feel afraid or neglected: No Advance Directives: No Advance Directives Information Provided: Yes Do you have thoughts of harming others: None Do you have a plan to hurt others: No Plan Recently lost weight without trying: No Eating poorly because of decreased appetite: No Nutrition Risks: No Nutritional Risk Poor oral hygiene: No service: No Sexual orientation: Straight/Heterosexual Meds Allergies Allergy/AdvReac Type Severity Reaction Status Date / Time haloperidol (From Haldol) AdvReac Severe dystonia Verified 09/20/24 09:09 Active Medications: Current Medications Acetaminophen (Acetaminophen 325 Mg Tablet) 650 mg PO Q6H PRN PRN Reason: Headache/Pain, Scale 1-10 Last Admin: 09/24/24 03:09 Dose: 650 mg Al Hydroxide/Mg Hydroxide (Magnesium Hydrox/Alum Hydrox 30 Ml Oral.Susp) 30 ml PO Q6H PRN PRN Reason: Heartburn/Nausea Benzocaine (Throat Lozenge, Medicated Lozenge) 1 lozenge MUCOUS MEM Q2H PRN PRN Reason: Sore Throat Last Admin: 09/25/24 09:16 Dose: 1 lozenge Calcium Carbonate (Calcium Carbonate 750 Mg Tab.Chew) 750 mg PO Q6H PRN PRN Reason: Heartburn Last Admin: 09/23/24 23:25 Dose: 750 mg Carbamazepine (Carbamazepine Er 200 Mg Tab.Er.12h) 400 mg PO BID FANNIE Last Admin: 09/25/24 09:16 Dose: 400 mg Clozapine (Clozapine 100 Mg Tablet) 100 mg PO BEDTIME FANNIE Last Admin: 09/24/24 22:10 Dose: 100 mg Hydroxyzine HCl (Hydroxyzine Hcl 25 Mg Tablet) 25 mg PO Q6H PRN PRN Reason: mild anxiety Last Admin: 09/24/24 07:01 Dose: 25 mg Lisinopril (Lisinopril 20 Mg Tablet) 20 mg PO DAILY [facility]; Protocol Last Admin: 09/25/24 09:20 Dose: Not Given Magnesium Hydroxide (Milk Of Magnesia 30 Ml Oral.Susp) 30 ml PO DAILY PRN PRN Reason: Constipation Melatonin (Melatonin 3 Mg Tablet) 6 mg PO BEDTIME PRN PRN Reason: Insomnia Last Admin: 09/24/24 22:10 Dose: 6 mg Nicotine (Nicotine 21 Mg Patch.Td24) 21 mg TRANSDERMA DAILY [facility] Last Admin: 09/25/24 09:17 Dose: 21 mg Nicotine Polacrilex (Nicotine Polacrilex Lozenge 4 Mg Lozenge) 4 mg BUCCAL Q1H PRN PRN Reason: Nicotine Cravings Last Admin: 09/25/24 12:27 Dose: 4 mg Olanzapine (Olanzapine 10 Mg Tablet) 10 mg PO RQ4H PRN PRN Reason: agitation Last Admin: 09/24/24 07:02 Dose: 10 mg Senna/Docusate Sodium (Sennosides/Docusate Sodium Tablet) 1 tab PO DAILY [facility] Last Admin: 09/25/24 09:16 Dose: 1 tab Home Medications ?Medication ?Instructions ?Recorded ?Confirmed ?Last Taken ?Type No Known Home Meds 09/21/24 09/21/24 Unknown History Physical Exam Vital Signs and Narrative: Vital Signs: Last Vital Signs Temp 96.6 F L 09/25/24 07:46 Pulse 122 H 09/25/24 07:46 Resp 16 09/25/24 07:46 BP 142/75 H 09/25/24 07:46 Pulse Ox 96 09/25/24 07:46 O2 Del Method Room Air 09/25/24 07:46 BMI result Body Mass Index 28.1 CONST: Alert and oriented, in NAD. Well nourished HEENT: Normocephalic, atraumatic, MMM, Eyes clear, Neck supple, carious tooth noted left lower jaw with erythema at gumline. RESP: Lungs clear, RRR even and regular HEART:,RRR, S1, S2. no edema GI:Abdomen Soft NT, ND. + BS times four :Deferred SKIN: Warm dry and intact, no visible lesions or rashes NEURO:CN II-XII Intact bilaterally, Sensation intact. Speech clear. No spinal tenderness PSYCH: Anxious Results Labs 09/24/24 17:11 09/24/24 17:11 Labs: Laboratory Results - last 24 hr 09/24/24 17:11 MCV 99.0 H MCH 34.4 H MCHC 34.7 RDW 11.5 Plt Count 316 MPV 9.1 L Immature Gran % (Auto) 0.4 Neut % (Auto) 79.9 H Lymph % (Auto) 10.5 L [place] % (Auto) 7.7 Eos % (Auto) 1.1 Baso % (Auto) 0.4 Lymph # (Auto) 1.6 [place] # (Auto) 1.1 Eos # (Auto) 0.2 Baso # (Auto) 0.1 Abs Immat Gran (auto) 0.06 H Absolute Neuts (auto) 11.9 H Absolute Nucleated RBC 0.000 Nucleated RBC % (auto) 0.0 Anion Gap 15 Estim Creat Clear Calc 113.9 Estimated GFR > 60 Random Glucose 110 Calcium 9.2 Total Bilirubin 0.3 Direct Bilirubin 0.1 AST 126 H ALT 133 H Alkaline Phosphatase 95 Ammonia 24 Total Protein 7.2 Albumin 4.2 TSH 0.76 Assessment and Plan (1) Dental abscess: Status: Acute Plan Schizoaffective disorder/Aggressive behavior/Suicidal ideation Plan per Psychiatry team Leukocytosis Denies any history of IVDA, no cough, no dysuria. We will check a chest x-ray and a UA, as well as a CBC in the a.m. ? Dental abscess Multiple carious teeth Redness had gum line on left side. We will treat with a course of penicillin VK QID for 10 days Re check CBC in a.m. Will need dental follow up on DC Thank you for allowing me to participate in the care of this patient. Signing off at this time. Please reconsult of any acute concerns or issues arise
[2024-09-25 19:22] VITALS: RESP 16
[2024-09-26] MEDS: Throat Lozenge, Medicated LOZENGE 1 LOZENGE MUCOUS MEM ×3 (04:29→16:05)
[2024-09-26] MEDS: Nicotine Polacrilex Lozenge 4 MG LOZENGE BUCCAL ×6 (05:28→23:35)
[2024-09-26 08:00] VITALS: BP 151/80; PULSE 115; RESP 16; TEMP 36.4; O2SAT 96
--- NOTE | 2024-09-26 08:50 | P.PNPSI_ITS ---
Subjective Subjective Date of Service: 09/26/24 Reason For Visit: jazmine Subjective Notes: 3 Day Interim History: Active on unit. social with peers. attending groups. observed cleaning room. Patient reports feeling good today; focused on discharging home and returning to work. 3 day notice up on 09/27/24. denies SI/HI/VH/AH. Clozaril increased to 150mg PO bedtime. Patient reports he plans on being medication compliant and following up with his outpatient providers. Medication Compliance: Yes Side effects from medications: No Attending Groups: Yes Mental Status Exam Mental Status Exam Narrative: Pt is alert and oriented; behavior is cooperative and calm; dressed in casual attire; mood is described as good ; eye contact appropriate; Speech is normal rate, volume and not pressured; thought process is organized; Thought content is on discharge; denies SI/HI/VH/AH. Diagnostics Vital Signs (24Hr): Vital Signs - 24 hr 09/25/24 19:22 09/26/24 08:00 Temperature 97.6 F Pulse Rate 115 H Respiratory Rate 16 16 Blood Pressure 151/80 H Pulse Oximetry 96 Oxygen Delivery Method Room Air BMI result Body Mass Index 28.1 Labs 09/24/24 17:11 09/24/24 17:11 Labs: Laboratory Results - last 48 hr 09/24/24 09/25/24 17:11 20:28 WBC 14.9 H RBC 4.13 L Hgb 14.2 Hct 40.9 L MCV 99.0 H MCH 34.4 H MCHC 34.7 RDW 11.5 Plt Count 316 MPV 9.1 L Immature Gran % (Auto) 0.4 Neut % (Auto) 79.9 H Lymph % (Auto) 10.5 L [place] % (Auto) 7.7 Eos % (Auto) 1.1 Baso % (Auto) 0.4 Lymph # (Auto) 1.6 [place] # (Auto) 1.1 Eos # (Auto) 0.2 Baso # (Auto) 0.1 Abs Immat Gran (auto) 0.06 H Absolute Neuts (auto) 11.9 H Absolute Nucleated RBC 0.000 Nucleated RBC % (auto) 0.0 ESR 22 H Sodium 139 Potassium 4.6 D Chloride 103 Carbon Dioxide 26 Anion Gap 15 BUN 12 Creatinine 0.99 Estim Creat Clear Calc 113.9 Estimated GFR > 60 Random Glucose 110 Calcium 9.2 Total Bilirubin 0.3 Direct Bilirubin 0.1 AST 126 H ALT 133 H Alkaline Phosphatase 95 Ammonia 24 C-Reactive Protein 3.34 H Total Protein 7.2 Albumin 4.2 TSH 0.76 Imaging Radiology Impressions: ITS Impressions Chest X-Ray 09/25/24 15:30 IMPRESSION: No acute airspace disease. Electronically signed by: Justen Prado MD 09/25/2024 03:47 PM EDT RP Medications Medications Current Medications Acetaminophen (Acetaminophen 325 Mg Tablet) 650 mg PO Q6H PRN PRN Reason: Headache/Pain, Scale 1-10 Last Admin: 09/24/24 03:09 Dose: 650 mg Al Hydroxide/Mg Hydroxide (Magnesium Hydrox/Alum Hydrox 30 Ml Oral.Susp) 30 ml PO Q6H PRN PRN Reason: Heartburn/Nausea Benzocaine (Throat Lozenge, Medicated Lozenge) 1 lozenge MUCOUS MEM Q2H PRN PRN Reason: Sore Throat Last Admin: 09/26/24 04:29 Dose: 1 lozenge Calcium Carbonate (Calcium Carbonate 750 Mg Tab.Chew) 750 mg PO Q6H PRN PRN Reason: Heartburn Last Admin: 09/23/24 23:25 Dose: 750 mg Carbamazepine (Carbamazepine Er 200 Mg Tab.Er.12h) 400 mg PO BID FANNIE Last Admin: 09/25/24 23:06 Dose: 400 mg Clozapine 100 mg/ Clozapine 25 (mg) 125 mg PO BEDTIME FANNIE Last Admin: 09/25/24 23:07 Dose: 125 mg Hydroxyzine HCl (Hydroxyzine Hcl 25 Mg Tablet) 25 mg PO Q6H PRN PRN Reason: mild anxiety Last Admin: 09/24/24 07:01 Dose: 25 mg Lisinopril (Lisinopril 20 Mg Tablet) 20 mg PO DAILY [facility]; Protocol Last Admin: 09/25/24 09:20 Dose: Not Given Magnesium Hydroxide (Milk Of Magnesia 30 Ml Oral.Susp) 30 ml PO DAILY PRN PRN Reason: Constipation Melatonin (Melatonin 3 Mg Tablet) 6 mg PO BEDTIME PRN PRN Reason: Insomnia Last Admin: 09/25/24 23:07 Dose: 6 mg Nicotine (Nicotine 21 Mg Patch.Td24) 21 mg TRANSDERMA DAILY FANNIE Last Admin: 09/25/24 09:17 Dose: 21 mg Nicotine Polacrilex (Nicotine Polacrilex Lozenge 4 Mg Lozenge) 4 mg BUCCAL Q1H PRN PRN Reason: Nicotine Cravings Last Admin: 09/26/24 05:28 Dose: 4 mg Olanzapine (Olanzapine 10 Mg Tablet) 10 mg PO RQ4H PRN PRN Reason: agitation Last Admin: 09/24/24 07:02 Dose: 10 mg Penicillin V Potassium (Penicillin V Potassium 250 Mg Tablet) 500 mg PO Q6H FANNIE Stop: 10/05/24 05:59 Last Admin: 09/26/24 05:28 Dose: 500 mg Senna/Docusate Sodium (Sennosides/Docusate Sodium Tablet) 1 tab PO DAILY FANNIE Last Admin: 09/25/24 09:16 Dose: 1 tab Allergies Allergies Allergy/AdvReac Type Severity Reaction Status Date / Time haloperidol (From Haldol) AdvReac Severe dystonia Verified 09/20/24 09:09 Assessment & Plan Assessment & Plan (1) Schizoaffective disorder, bipolar type: Status: Acute Code(s): F25.0 - Schizoaffective disorder, bipolar type (2) Alcohol use disorder: Status: Acute Code(s): F10.90 - Alcohol use, unspecified, uncomplicated Plan Patient is a 29 year old male with hx of schizoaffective d/o and alcohol use d/o who arrived to ER via ambulance from home due to patient reporting suicidal ideation secondary to medication noncompliance. Plan: CV 15 minute safety checks Continue previous medications per last admission [facility] protocol Obtain collateral Encourage groups Referral to outpatient psychiatric providers Discharge planning 09/24:Active on unit. social with peers. attending groups. medication compliant. Patient reports he is happy to be on the unit and getting help . Focused on discharging on his 3 day notice to return to work. denies withdrawal symptoms; [facility] DC'd. denies SI/HI/VH/AH. Clozaril increased to 100mg PO bedtime. Labs ordered for today. 09/25: Active on unit. social with peers. attending groups. Patient reports feeling calm today because of medications. denies any side effects from restarting medications. 3 day notice up on 09/27/24. denies SI/HI/VH/AH. Clozaril increased to 125mg PO bedtime. 09/26:Active on unit. social with peers. attending groups. observed cleaning room. Patient reports feeling good today; focused on discharging home and returning to work. 3 day notice up on 09/27/24. denies SI/HI/VH/AH. Clozaril increased to 150mg PO bedtime. Patient reports he plans on being medication compliant and following up with his outpatient providers. Patient educated on: diagnosis and medication risk/benefits Reason for continued inpatient stay Substantial Risk for: stable for discharge Time Spent With Patient Time: Total time managing care of this patient today _20___ minutes.
[2024-09-26] MEDS: carBAMazepine ER 200 MG TAB.ER.12H 400 MG PO ×2 (08:51→22:32)
--- NOTE | 2024-09-26 09:00 | P.DS_ITS ---
DS: Providers Provider Date of Service: 09/26/24 Date of admission: 09/22/24 12:13 Date of discharge: 09/27/24 Primary care physician: [facility] Admitting clinician: Clare Jay Attending physician on admission: Jez Radford Consults: 09/22/24 16:16 Addiction Medicine Provider Routine Consulting Provider: Addiction Covering Reason for consultation: ETOH 09/24/24 21:23 Consult to Hospitalist Routine Comment: Consulting Provider: [facility] Hospitalists Reason For Exam: elevated WBC and ANC Attending physician on discharge: Jez Radford Discharging clinician: Clare Jay DS: Diagnosis Discharge Diagnosis (1) Schizoaffective disorder, bipolar type: Status: Acute (2) Alcohol use disorder: Status: Acute DS: Medications Discharge Medications Home Medications: Previous Rx's ?Medication ?Instructions ?Recorded carbamazepine 400 mg 400 mg PO BID 30 days #60 ta bs 09/26/24 tablet,extended release,12 hr clozapine 150 mg disintegrating 150 mg PO BEDTIME 30 d ays #30 tabs 09/26/24 tablet lisinopril 20 mg tablet 20 mg PO DAILY 30 days #30 t abs 09/26/24 melatonin 5 mg tablet 5 mg PO BEDTIME PRN sleep 30 days 09/26/24 #30 tabs penicillin V potassium 500 mg 500 mg PO Q6H 9 days #36 tabs 09/26/24 tablet sennosides 8.6 mg-docusate sodium 1 tab PO DAILY 30 da ys #30 tabs 09/26/24 50 mg tablet (Senna Plus) Mental Status Exam Mental Status Exam Narrative: Pt is alert and oriented; behavior is cooperative and calm; dressed in casual attire; mood is described as good ; eye contact appropriate; Speech is normal rate, volume and not pressured; thought process is organized; Thought content is on discharge; denies SI/HI/VH/AH. Data Data Completed and Pending Completed studies during hospitalization [Text1]: 09/24/24 09/25/24 17:11 20:28 WBC 14.9 H RBC 4.13 L Hgb 14.2 Hct 40.9 L MCV 99.0 H MCH 34.4 H MCHC 34.7 RDW 11.5 Plt Count 316 MPV 9.1 L Immature Gran % (Auto) 0.4 Neut % (Auto) 79.9 H Lymph % (Auto) 10.5 L Garvin % (Auto) 7.7 Eos % (Auto) 1.1 Baso % (Auto) 0.4 Lymph # (Auto) 1.6 Garvin # (Auto) 1.1 Eos # (Auto) 0.2 Baso # (Auto) 0.1 Abs Immat Gran (auto) 0.06 H Absolute Neuts (auto) 11.9 H Absolute Nucleated RBC 0.000 Nucleated RBC % (auto) 0.0 ESR 22 H Sodium 139 Potassium 4.6 D Chloride 103 Carbon Dioxide 26 Anion Gap 15 BUN 12 Creatinine 0.99 Estim Creat Clear Calc 113.9 Estimated GFR > 60 Random Glucose 110 Calcium 9.2 Total Bilirubin 0.3 Direct Bilirubin 0.1 AST 126 H ALT 133 H Alkaline Phosphatase 95 Ammonia 24 C-Reactive Protein 3.34 H Total Protein 7.2 Albumin 4.2 TSH 0.76 Imaging Diagnostic Imaging Impressions Chest X-Ray 09/25/24 15:30 IMPRESSION: No acute airspace disease. Electronically signed by: Justen Prado MD 09/25/2024 03:47 PM EDT DS: Summary Hospital Course Hospital Course: Patient is a 29 year old male with hx of schizoaffective d/o and alcohol use d/o who arrived to ER via ambulance from home due to patient reporting suicidal ideation secondary to medication noncompliance. Per crisis report, patient's mother called requesting an assessment this patient has been medication nonadherent and was displaying concerning behaviors. Patient's mother reports he had endorsed suicidal ideation with a plan to drown himself or strike his head repeatedly against an object until dying. Patient arrived to ER agitated endorsing SI with a plan and command auditory hallucinations. Patient required mechanical and chemical restraints in ER. History of multiple inpatient psychiatric hospitalizations. History of medication and treatment nonadherence. Patient denies SI/HI. Denies AH/VH but appeared to be responding to internal stimuli. Disorganized and tangential. During admission assessment, patient presents alert and oriented x3. Calm and cooperative. Patient reports he has been medication noncompliant since discharging from the hospital; patient stated, I was not taking my meds because some of the meds make me too tired and feel like a zombie . Patient denies SI/HI/VH/AH. Patient stated, I don't remember telling my mom I was suicidal. When I 1st came in I was having voices but I'm not anymore. I know that I need to stop smoking, drinking and masturbating because they make me feel numb in it's not worth it . Patient became tearful and stated, my mom and sister need to be patient with me. I know I need to stop smoking and drinking. I don't need to go to a program . Patient reports marijuana and alcohol use however, reports he has not been drinking too much alcohol; denies any withdrawal symp toms at this time. Patient agreed to restart previous medications. Plan: CV 15 minute safety checks Continue previous medications per last admission [facility] protocol Obtain collateral Encourage groups Referral to outpatient psychiatric providers Discharge planning Active on unit. social with peers. attending groups. medication compliant. Patient reports he is happy to be on the unit and getting help . Focused on discharging on his 3 day notice to return to work. denies withdrawal symptoms; [facility] DC'd. denies SI/HI/VH/AH. Clozaril increased to 100mg PO bedtime. Labs ordered for today. Active on unit. social with peers. attending groups. Patient reports feeling calm today because of medications. denies any side effects from restarting medications. 3 day notice up on 09/27/24. denies SI/HI/VH/AH. Clozaril increased to 125mg PO bedtime. Active on unit. social with peers. attending groups. observed cleaning room. Patient reports feeling good today; focused on discharging home and returning to work. 3 day notice up on 09/27/24. denies SI/HI/VH/AH. Clozaril increased to 150mg PO bedtime. Patient reports he plans on being medication compliant and following up with his outpatient providers. Status at Discharge Cognitive/behavioral status at discharge: Patient has insight and demonstrates good judgment in terms of wanting to pursue treatment. Patient has a safety plan that includes presenting to the closest ER or calling 911 if feeling unsafe. Functional status at discharge: independent ambulation Overall status at discharge: patient is back to baseline Time Spent with Patient Time attestation: Total time managing care of this patient today _20___ minutes. Time spent: Less than 30 minutes Discharge Plan Discharge Anticipated Discharge Date/Time: 09/27/24 11:00 Patient Disposition: Home, Self-Care Discharge Diagnosis: Schizoaffective d/o, Alcohol use d/o Referrals: Soni Mauro (Therapy) [Other] - 10/02/24 1:00 pm Referral Note: IN OFFICE APPOINTMENT -Please arrive 15 minutes early to your appointment in order to fill out necessary paperwork. -Please bring your insurance card with you to the appointment. Silas Rogelio (Psychiatry) [Other] - 10/26/24 10:00 am Referral Note: TELEHEALTH APPOINTMENT -Psychiatric Evaluation Silas Rogelio (Psychiatry) [Other] - 11/23/24 10:20 am Referral Note: TELEHEALTH APPOINTMENT -[facility] [Primary Care Provider, Medical] - 1 Week Discharge Medications: New sennosides-docusate sodium [Senna Plus] 8.6-50 mg Tablet 1 tab PO DAILY 30 Days Qty: 30 0RF melatonin 5 mg tablet 5 mg PO BEDTIME PRN (Reason: sleep) 30 Days Qty: 30 0RF carbamazepine 400 mg tablet extended release 12 hr 400 mg PO BID 30 Days Qty: 60 0RF lisinopril 20 mg Tablet 20 mg PO DAILY 30 Days Qty: 30 0RF Protocol: Hold for SBP< HOLD for SBP < : 90 penicillin V potassium 500 mg tablet 500 mg PO Q6H 9 Days Qty: 36 0RF clozapine 150 mg tablet,disintegrating 150 mg PO BEDTIME 30 Days Qty: 30 0RF Discharge Orders: Discharge Order (Routine); Ordered 09/27/24 Ordered By: Clare Jay Diet: Regular diet Activity on Discharge: As tolerated Stand Alone Forms: Patient Portal Discharge page, Community Support Print Language: Turkish Care Plan Goals: Maintain mood and safe behaviors Take medications as prescribed Continue to pursue sobriety Practice coping skills Continue with outpatient providers and reach out to them as needed Health Concerns: Mood stability and behaviors Sobriety Plan of Treatment: Follow up with your PCP, psychiatric provider and other outpatient providers regarding above concerns Take medications as prescribed Assessment: Patient has insight and demonstrates good judgment in terms of wanting to pursue treatment. Patient has a safety plan that includes presenting to the closest ER or calling 911 if feeling unsafe. Discharge Date/Time: 09/27/24 07:55
[2024-09-26] MEDS: Nicotine 21 MG PATCH.TD24 TRANSDERMA (18:02)
[2024-09-26 22:35] VITALS: BP 146/69; PULSE 110; RESP 16; TEMP 36.4; O2SAT 98
[2024-09-27] MEDS: Throat Lozenge, Medicated LOZENGE 1 LOZENGE MUCOUS MEM ×2 (03:30→07:48)
[2024-09-27] MEDS: carBAMazepine ER 200 MG TAB.ER.12H 400 MG PO (07:45)
== END 2024-09-27 07:55 | disposition home or self-care (01) | DRG 750 ==
LOC: HO.ED 09-22 06:41 → HO.PADLT16 09-22 14:51
PROVIDERS: Nurse Practitioner Family; Physician Assistant Medical; Admitting Provider Psychiatry & Neurology Psychiatry; Emergency Provider Emergency Medicine Emergency Medical Services; Responsible Provider Registered Nurse; Visit Provider Psychiatry & Neurology Psychiatry
DX: F25.0 Schizoaffective disorder, bipolar type (principal); R45.851 Suicidal ideations; F10.90 Alcohol use, unspecified, uncomplicated; F17.210 Nicotine dependence, cigarettes, uncomplicated; K02.9 Dental caries, unspecified; Z71.6 Tobacco abuse counseling; Z20.822 Contact with and (suspected) exposure to COVID-19; Z79.899 Other long term (current) drug therapy
CPT/HCPCS: 36415; 71045; 80048; 80053; 80076; 80143; 80179; 80307; 82140; 84443; 85025; 85652; 86140; 87637; 93005; 99285; J1200; J1630; J1790; J2250; J2359; J3360; S9485

== ENCOUNTER → 2024-09-20 08:37 | Outpatient (BNV) | payer MEDICAID, SELFPAY | PROVIDERS: Emergency Provider Emergency Medicine; Visit Provider Internal Medicine Cardiovascular Disease | DX: R94.31 Abnormal electrocardiogram [ECG] [EKG] (principal); Z13.6 Encounter for screening for cardiovascular disorders | CPT/HCPCS: 93010 ==

== ENCOUNTER 2024-09-22 12:13 | Outpatient (BNV) | payer MEDICAID, SELFPAY | END 2024-09-25 15:30 | PROVIDERS: Admitting Provider Psychiatry & Neurology Psychiatry; Emergency Provider Emergency Medicine Emergency Medical Services; Responsible Provider Registered Nurse; Visit Provider Radiology Diagnostic Radiology | DX: D72.829 Elevated white blood cell count, unspecified (principal) | CPT/HCPCS: 71045 ==

== ENCOUNTER → 2024-09-22 12:13 | Outpatient (BNV) | payer MEDICAID, SELFPAY | PROVIDERS: Admitting Provider Psychiatry & Neurology Psychiatry; Emergency Provider Emergency Medicine Emergency Medical Services; Responsible Provider Registered Nurse; Visit Provider Nurse Practitioner Family | DX: D72.829 Elevated white blood cell count, unspecified (principal); K04.7 Periapical abscess without sinus | CPT/HCPCS: 99221; 99499 ==

== ENCOUNTER → 2024-09-22 12:13 | Outpatient (BNV) | payer OTHER, SELFPAY | PROVIDERS: Admitting Provider Psychiatry & Neurology Psychiatry; Emergency Provider Emergency Medicine Emergency Medical Services; Responsible Provider Registered Nurse; Visit Provider Registered Nurse | DX: F25.0 Schizoaffective disorder, bipolar type (principal); F10.90 Alcohol use, unspecified, uncomplicated | CPT/HCPCS: 99232; 99233 ==

== ENCOUNTER 2024-11-01 09:38 | Inpatient (IN) | payer OTHER, SELFPAY ==
[2024-11-01 10:05] VITALS: BP 180/90; PULSE 100; RESP 18; TEMP -17.7; TEMP 0; O2SAT 100; BMI 24.2
--- NOTE | 2024-11-01 10:31 | ED_ITS ---
HPI - Psych General Chief Complaint: Psychiatric Symptoms Stated Complaint: SECTION 12, SI Time Seen by Provider: 11/01/24 10:26 Source: patient and EMS Mode of arrival: EMS Limitations: other (poor historian) History of Present Illness ED Provider: HARISH JEAN BAPTISTE Narrative: 29 yo male with PMH of ETOH use disorder, schizoaffective disorder on S12 for SI comments. He is very anxious stating that there is something who is going to kill him and he now has an empty heart. He call is 'the He . I couldn't get much out of him as he was focused on this. ED RN notes that he has been missing for a bit and was found acting erratic. MD complaint: other Onset (ago): unknown Duration: constant History of same: Yes Relieving factors: none Exacerbating factors: other Context: not taking psychiatric medications Associated psychiatric symptoms: racing thoughts, auditory hallucinations and delusions Associated symptoms: denies other symptoms Treatments prior to arrival: placed on mental health hold Related Data Previous Rx's ?Medication ?Instructions ?Recorded clozapine 150 mg disintegrating 150 mg PO BEDTIME 30 d ays #30 tabs 09/26/24 tablet melatonin 5 mg tablet 5 mg PO BEDTIME PRN sleep 30 days 09/26/24 #30 tabs penicillin V potassium 500 mg 500 mg PO Q6H 9 days #36 tabs 09/26/24 tablet Allergies Allergy/AdvReac Type Severity Reaction Status Date / Time haloperidol (From Haldol) AdvReac Severe dystonia Verified 11/01/24 10:09 Review of Systems Review of Systems: ROS unable to be obtained due to poor cooperation [facility] Past Medical History Attestation statement: The following information was validated with the patient. Source: old records reviewed Medical History Agitation Psychosis Schizoaffective disorder, bipolar type Bipolar 1 disorder Alcohol abuse Social History Social History Household Members: Family Household Members Other:: Mother Housing: Apartment Do you presently have visiting nurse or other home services: No Unable to assess alcohol history related to: Refusing to respond Alcohol intake: current Alcohol intake frequency: 3 or more drinks per day A lcohol type: hard liquor Comment: Dr. Campbell Patient Tobacco Use Status: Refuse Tobacco use screen Tobacco use type: Cigarette and Smokeless Tobacco Cigarette Packs Per Day: 1 Cigarettes Per Day: 20.0 Years Smoked: ''a long time'' e-Cigarette/Vaping Use: Currently Using Second Hand Smoke Exposure: Yes Substance Use Type: Marijuana Currently Displaying Signs/Symptoms of Drug Intoxication Withdrawal: No Advance Directives: No Advance Directives Information Provided: Yes Do you have thoughts of harming others: None Do you have a plan to hurt others: No Plan service: No Sexual orientation: Straight/Heterosexual Physical Exam Vital Signs: Vital Signs: Last Vital Signs Temp 0 F L 11/01/24 10:05 Pulse 110 H 11/01/24 18:25 Resp 18 11/01/24 20:00 BP 148/96 H 11/01/24 18:25 Pulse Ox 99 11/01/24 18:10 O2 Del Method Room Air 11/01/24 18:10 BMI result Body Mass Index 24.2 Appearance: Alert. disoriented talking about the He . Mild acute distress. Eyes: Pupils equal, round and reactive to light. ENT: Pharynx dry MM. Atraumatic Neck: Normal inspection. Neck supple. CVS: tachycardic heart rate and rhythm. Pulses normal. Respiratory: No respiratory distress. Breath sounds normal. Abdomen: Soft and nontender. Skin: Skin warm and dry. Normal skin color. Normal skin turgor. Extremities: No lower extremity edema. Neuro: cannot participate in exam but moves all extremities and no gross focal deficits Course Course Course Narrative: 11/01/241999 HARISH physician observation ended admitted as inpatient Medications Administered Generic Name Dose Route Start Last Admin Trade Name Freq PRN Reason Stop Dose Admin Acetaminophen 650 mg 11/01/24 15:50 11/02/24 11:59 Acetaminophen 325 Mg Tablet PO 650 mg Q6H PRN Administration Headache/Pain, Scale 1-10 Carbamazepine 400 mg 11/02/24 09:30 11/02/24 21:12 Carbamazepine 200 Mg Tablet PO Not Given BID FANNIE Hydroxyzine HCl 25 mg 11/01/24 15:50 11/01/24 21:49 Hydroxyzine Hcl 25 Mg Tablet PO 25 mg Q6H PRN Administration mild anxiety Lisinopril 20 mg 11/02/24 09:30 11/02/24 12:13 Lisinopril 20 Mg Tablet PO Not Given DAILY FANNIE Protocol Lorazepam 2 mg 11/01/24 10:30 11/02/24 11:58 Lorazepam 1 Mg Tablet PO 2 mg Q3H PRN Administration Alcohol Withdrawal Lorazepam 1 mg 11/02/24 11:46 11/02/24 21:38 Lorazepam 1 Mg Tablet PO 1 mg Q4H PRN Administration Anxiety Melatonin 6 mg 11/02/24 09:24 11/02/24 21:39 Melatonin 3 Mg Tablet PO 6 mg BEDTIME PRN Administration Insomnia Nicotine Polacrilex 4 mg 11/01/24 15:50 11/02/24 21:38 Nicotine Polacrilex 2 Mg Gum BUCCAL 4 mg Q2H PRN Administration Nicotine Cravings Senna/Docusate Sodium 1 tab 11/02/24 09:30 11/02/24 14:59 Sennosides/Docusate Sodium Tablet PO Not Given DAILY FANNIE Trazodone HCl 50 mg 11/01/24 15:50 11/01/24 21:49 Trazodone Hcl 50 Mg Tablet PO 50 mg BEDTIME MRX1 PRN Administration Insomnia Discontinued Medications Generic Name Dose Route Start Last Admin Trade Name Freq PRN Reason Stop Dose Admin Clozapine 25 mg 11/02/24 21:00 11/02/24 21:06 Clozapine 25 Mg Tablet PO 11/02/24 21:01 25 mg BEDTIME FANNIE Administration Lactated Ringer's 1,000 mls @ 999 mls/hr 11/01/24 10:15 11/01/24 10:30 Lr IV 11/01/24 11:15 Not Given .Q1H1M FANNIE Midazolam HCl 4 mg 11/01/24 17:10 11/01/24 17:18 Midazolam Hcl 2 Mg/2 Ml Vial IM 11/01/24 17:11 4 mg ONCE ONE Administration Nicotine 21 mg 11/02/24 12:10 11/02/24 15:00 Nicotine 21 Mg Patch.Td24 TRANSDERMA 11/02/24 12:11 21 mg ONCE ONE Administration Olanzapine 10 mg 11/01/24 10:37 11/01/24 10:48 Olanzapine Odt 10 Mg Tab.Rapdis TRANSLINGU 11/01/24 10:38 10 mg ONCE ONE Administration Olanzapine 10 mg 11/01/24 16:43 11/01/24 17:03 Olanzapine 10 Mg Tablet PO 11/01/24 16:44 5 mg ONCE ONE Administration Olanzapine 10 mg 11/01/24 17:10 11/01/24 17:18 Olanzapine 10 Mg Vial IM 11/01/24 17:11 10 mg STAT STA Administration Medical Decision Making Medical Decision Making [facility] Narrative: 29 yo male with PMH of ETOH use disorder, schizoaffective disorder on S12 here with delusions but no obvious trauma he will need to be signed out to oncoming provider pending labs. I am going to start on PRN ativan and zyprexa ODT. Time: 15:26 Date: 11/01/24 Provider: Jose Prado MD Start physician observation My independent interpretation patient's laboratory evaluation is as follows: WBC elevated 14,900. ESR elevated 22. AST elevated 126. ALT elevated 133. C- reactive protein elevated 3.34. Unclear why the patient has an elevated ESR and CRP, I do not think that he has a infectious process at this time. Patient's urine tox screen is pending. I assumed care of this patient from my colleague, Dr. Johnson. ? Patient was evaluated by the CARE team . According to their note, patient reported SI and HI and believe there is someone who was going to kill him. As per the Section 12 the patient threatened to kill his mom and she called the police and told him that he would do suicide bicarb and have them shoot him. Care team felt that th e patient met in level patient of care therefore the patient will be kept in the emergency department on a Section 12 until appropriate disposition can be determined . Differential Diagnosis Differential Diagnoses: The differential diagnosis associated with the presentation includes ETOH use disorder, drug abuse, lab abnormality Admission/Observation Consideration of admission/observation: Escalation of care including admission/observation considered physician observation started at 1042am Consult Healthcare Provider Management of the patient was discussed with: Behavioral Health Provider Lab Data [facility] Lab Attestation statement: I reviewed the patient's lab results. Independent Historian Clinical information obtained from an independent historian. History obtained from or confirmed by: EMS External Record Review External record reviewed: Outpatient record Chronic Conditions Patient?s care impacted by: Other (Schizoaffective disorder, bipolar type) Discharge Plan Discharge Clinical Impression: Schizoaffective disorder, bipolar type, Suicidal ideations, Homicidal ideation Patient Disposition: Admitted As Inpatient Interventions: Admission Worksheet (ED) Last Done: 11/01/24 20:14 Discharge Date/Time: 11/01/24 20:15
[2024-11-01] MEDS: OLANZapine ODT 10 MG TAB.RAPDIS TRANSLINGU (10:48)
--- NOTE | 2024-11-01 11:48 | MHC.EDTECH ---
attempted to obtain urine sample from patient. Patient went to give sample and instead got in shower. No urine or labs obtained at this time.
--- NOTE | 2024-11-01 13:33 | PC.NURSE ---
Assumed care of pt at 1100. Pt up pacing around unit, responding to internal stimuli, self dialoguing. Pt frequently reminded to put hospital gown on while out in common area.. Unable to obtain EKG/Labs/Urine d/t pt erratic behavior/not cooperative with staff- aware, admissions aware. Medicated per MAR prior to this RNs arrival. Pt ambulatory with steady gait.
[2024-11-01 14:00] VITALS: BP 175/82; PULSE 89; RESP 20; O2SAT 96
--- NOTE | 2024-11-01 15:06 | MHC.CARE ---
Pt will be adult IPLOC. Section 12a in chart for safety
--- OUTSIDE RECORDS SUMMARY | 2024-11-01 15:20 | XMS_ITS | Clinical Summary ---
Author Organization [employer] Address [address] [facility] [address] [place] [address] Care Team Providers Care Land Appraiser Name Role Phone Unavailable Primary Care Provider Unavailabl e Allergies No known active allergies Medications * This document contains information received from the source organization and may not represent a complete record from that organization. cloZAPine (Fazaclo) 150 MG disintegrating tablet Take 1 tablet by mouth at bedtime. Active senna-docusate sodium (Senokot-S) 8.6-50 MG tablet Take 1 tablet by mouth Once per day. Active melatonin 5 MG tablet Take 1 tablet by mouth if needed at bedtime (sleep). Active carBAMazepine XR (TEGretol XR) 400 MG 12 hr tablet Take 1 tablet by mouth 2 times daily. Do not crush, chew, or split. Active lisinopril 20 MG tablet Take 1 tablet by mouth Once per day. Active cloZAPine (Clozaril) 100 MG tablet take 1 tablet by mouth daily and 2 tablets at bedtime 025 Discontinued(M ed list cleanup (will not trigger notification to Pharmacy)) divalproex (Depakote ER) 500 MG 24 hr tablet TAKE 4 TABLETS BY MOUTH AT BEDTIME 025 Discontinued(M ed list cleanup (will not trigger notification to Pharmacy)) glycopyrrolate (Robinul) 1 MG tablet Take 1 tab by mouth daily and 2 tabs at bedtime 025 Discontinued(M ed list cleanup (will not trigger notification to Pharmacy)) traZODone (Desyrel) 100 MG tablet take 1 tablet by oral route at bedtime as needed for insomnia 025 Discontinued(M ed list cleanup (will not trigger notification to Pharmacy)) Active Problems Problem Noted Date Diagnosed Date Vitreous floaters, bilateral 03/23/2022 Overview (03/23/2022): Care managed by [facility] 02/19/22, found on exam Followup PRN Presbyopia of both eyes 03/23/2022 Overview (03/23/2022): Care managed by [facility] 02/19/22, recommended reading glasses Followup PRN Congenital cataract 03/23/2022 Overview (03/23/2022): Care managed by [facility] 02/19/22, found on exam Followup PRN Bipolar I disorder 02/10/2022 Schizophrenia 02/10/2022 Hypercholesterolemia 11/20/2020 ADHD (attention deficit hyperactivity disorder) 01/11/2014 Overview (03/23/2022): Was on adderral as a child History of substance abuse 05/16/2012 Adjustment disorder 11/29/2006 Posttraumatic stress disorder 11/29/2006 Encounters Date Type Department Care Team Description 10/09/2024 Telephone [facility] MEDICINE [address] [place] [phone] Gilberto Smith MD CHW - New Patient Assistance 10/06/2024 Telephone [facility] MEDICINE [address] [place] [address] [phone] Felix Covington MA CHARTPREP 09/28/2024 Patient Outreach [facility] [address] [place] [address] [phone] Gilberto Smith MD Transition Of Care (Tcm) (HDF- scheduled and SDOH screening negative and Tobacco screening positive) 09/26/2024 Results Follow-Up [facility] [address] [place], [place] [phone] Provider, Generic External Data XR Chest 1 View 09/20/2024 Orders Only GENERIC EXTERNAL DATA DEPARTMENT Provider, Generic External Data from Last 3 Months Immunizations Immunization Administration Dates Next Due DTaP 06/06/1997, 5,1993,10/01,1993 DTaP / HiB / IPV 09/02/1994, 4,1993,07/31 Hep B, Adolescent or Pediatric 1993,1993,1993 Hib (HbOC) 09/02/1994, 4,1993,07/31 IPV 06/06/1997, 4,1993,07/31 Influenza injectable quadriv alent preservative free 12/18/2020 Influenza, IIV3, injectable 11/15/2019, 9 Influenza, Split (incl. martin fied surface antigen) 01/28/2012 MMR 06/06/1997,06/11/1994 Meningococcal MCV4P ACYW-135 06/08/2008 PPD Test 08/24/2014,08/10/2014 Pneumococcal Polysaccharide PPSV23 03/22/2018 Tdap 08/10/2014,12/23/2004 Social History Tobacco Use Types Packs/Day Years Used Date Smoking Tobacco: Every Day Cigarettes Passive Smoke Exposure: Current Smokeless Tobacco: Never Tobacco Cessation:Ready to Q uit: Not Asked; Counseling Given: Not Answered Alcohol Use Standard Drinks/Week Comments Not Currently 0 (1 standard drink = 0.6 oz pur e alcohol) Housing Stability Answer Date Recorded What is your housing situation today? I have juliorandi zayas 09/28/[address] you li ve. Do you have problems with any of the following? None of the above 09/28/2024 Food Insecurity Answer Date Recorded Within the past 12 months, y ou worried that your food would run out before you got money to buy more: Never True 09/28/2024 Within the past 12 months,th e food you bought just didn't last and you didn't have enough money to get more: Never True Transportation Answer Date Recorded In the past 12 months, has l ack of transportation kept you from medical appts, meetings, work or from getting things needed for daily living? No 09/28/2024 Utilities Answer Date Recorded In the past 12 months, has t he [employer], [employer], oil or water company threatened to shut off services in your home? No 09/28/2024 Internet Access Answer Date Recorded Internet Access Q1 Yes 09/28/2024 Internet Access Q2 Not on file 09/28/2024 Sex and Gender Information Value Date Recorded Sex Assigned at Male 12/29/2021 10:19 AM EDT Legal Sex Male 10:19 AM EDT Gender Identity Male 12/29/2021 10:19 AM EDT Sexual Orientation Straight 12/29/2021 10 :19 AM EDT Last Filed Vital Signs Vital Sign Reading Time Taken Comments Blood Pressure 143/89 03/05/2022 10:16 AM EST Pulse 87 03/05/2022 10:16 AM EST Temperature 36.9 C (98.5 F) 03/05/2022 10:16 AM EST Respiratory Rate 20 03/05/2022 10:1 6 AM EST Oxygen Saturation 96% 03/05/2022 10: 16 AM EST Inhaled Oxygen Concentration - - Weight 84.7 kg (186 lb 12.8 oz) 023 10:16 AM EST Height 167.6 cm (5' 6 ) 03/05/2022 10:1 6 AM EST Body Mass Index 30.15 03/05/2022 10:16 AM EST Plan of Treatment Health Maintenance Due Date Last Done Comments Depression Screening 1993 Disability Screening 1993 Alcohol/Substance Use Screening 2005 Family Planning (PISQ) 2008 HPV Vaccines (1 - Male 3-dose series) 2008 Pneumococcal Vaccine: Pediatrics (0 to 5 Years) and At-Risk Patients (6 to 49) Years (2 of 2 - PCV) 03/22/2019 03/22/2018 COVID-19 Vaccine (1 - season) 2023 DTaP/Tdap/Td Vaccines (8 - Td or Tdap) 08/10/2024 08/10/2014, 12/23/2004, 06/06/1997, Additional history exists Influenza Vaccine (#1) 2024 , 11/15/2019, 03/22/2018, Additional history exists SDOH Screening 09/28/2025 09/28/2024 Tobacco Screening 09/28/2025 09/28/2024 Lipid Panel 11/18/2025 11/18/2020 Zoster Vaccines (1 of 2) 05/31/2043 RSV Patients and Patients Aged 60 years or older (1 - 1-dose 75+ series) 2068 Hepatitis B Vaccines Completed 1993, 1993, 1993 HIB Vaccines Completed 09/02/1994, 06/1994, 1993, Additional history exists IPV Vaccines Completed 06/06/1997, 06/1994, 1993, Additional history exists Meningococcal Vaccine Aged Out 06/08/2008 No maribell coty eligible based on patient's age to complete this topic HIV Screening Completed 11/18/2020 Hepatitis C Screening Completed 11/18/2020 Hepatitis A Vaccines Aged Out No long er eligible based on patient's age to complete this topic Meningococcal B Vaccine Aged Out No l onger eligible based on patient's age to complete this topic RSV under 20 months Aged Out No longe r eligible based on patient's age to complete this topic Rotavirus Vaccines Aged Out No longer eligible based on patient's age to complete this topic Procedures Procedure Name Priority Date/Time Associated Diagnosis Comments XR CHEST 1 VIEW Routine 09/25/2024 3:30 PM EDT COMPREHENSIVE METABOLIC PANEL Routine 09/21/2024 2:21 PM EDT SLIDE REVIEW Routine 09/21/2024 2:21 PM EDT ACETAMINOPHEN LEVEL Routine 09/21/2024 2 :21 PM EDT SALICYLATE Routine 09/21/2024 2:21 PM EDT ETHANOL Routine 09/21/2024 2:21 PM EDT CBC WITH AUTO DIFFERENTIAL Routine 09/21/2024 2:21 PM EDT SARS COV2/INFLUENZA A/B AND RSV RNA QL NAAT Routine 09/20/2024 2:01 PM EDT ZZZ HISTORICAL HEPATITIS C AB W/REFL TO HCV RNA, QN, PCR Routine 11/18/2020 10:02 AM EDT HIV 1/2 ANTIGEN/ANTIBODY, FOURTH GENERATION W/RFL Routine 11/18/2020 10:02 AM EDT LIPID PANEL, STANDARD Routine 11/18/2020 10:02 AM EDT from Last 3 Months or Most Recently Relevant to Health Maintenance Results * XR Chest 1 View (09/25/2024 3:30 PM EDT) Anatomical Region Laterality Modality Chest Radiographic Jenifer ging 09/25/2024 3:30 PM EDT Narrative 09/25/2024 3:50 PM EDT [place] [address] XRay Report Signed Patient: Adi Candelario MR# : [id number] : 1995 Acct:[id number] Age/Sex: 29 / M ADM Date: 09/22/24 Loc: [id number].[id number] 307-[address]: Jez Radfrod MD Ordering Physician: Dejah Gonsales DNP Date of Service: 09/25/24 Procedure(s): XR chest 1V Accession Number(s): [id number] cc: [facility]; Dejah Gonsales DNP EXAMINATION: XR CHEST CLINICAL INFORMATION: Leukocytosis COMPARISON: July 17, 2021 TECHNIQUE: Frontal view of the chest was obtained. FINDINGS: No consolidation, pleural effusion or pneumothorax. Cardiomediastinal silhouette size is normal. Mild S-shaped curvature of the thoracic spine. XR/XR chest 1V IMPRESSION: No acute airspace disease. Electronically signed by: Justen Prado MD 09/25/2024 03:47 PM EDT Dictated By: Justen Ott MD Signed By: <Electronically signed by Justen Bryan MD in OV> 09/25/24 1547 DD/ 1530 TD/TT: 09/25/24 1540 Support Teacher: Procedure Note Donotuseinterpreter, Image - 09/25/[address] [address] XRay Report Signed Patient: Samir Candelario# : [id number] : 1995Acct:[id number] Age/Sex: 29 / MADM Date: 09/22/24 Loc: [id number] 307-[address]: Jez Radford MD Ordering Physician: Dejah Gonsales DNP Date of Service: 09/25/24 Procedure(s): XR chest 1V Accession Number(s): [id number] cc: [facility]; Dejah Gonsales DNP EXAMINATION: XR CHEST CLINICAL INFORMATION: Leukocytosis COMPARISON: July 17, 2021 TECHNIQUE: Frontal view of the chest was obtained. FINDINGS: No consolidation, pleural effusion or pneumothorax. Cardiomediastinal silhouette size is normal. Mild S-shaped curvature of the thoracic spine. XR/XR chest 1V IMPRESSION: No acute airspace disease. Electronically signed by: Justen Prado MD 09/25/2024 03:47 PM EDT Dictated By: Justen Ott MD Signed By: <Electronically signed by Justen Bryan MDin OV> 09/25/24 1547 DD/ 1530 TD/TT: 09/25/24 1540 Support Teacher: us [facility] External Provider IMG XR PROCEDURES Final Result * Slide Review (09/21/2024 2:21 PM EDT) Slide Review VERIFIED [facility] 09/21/2024 2:21 PM EDT 09/21/2024 2:25 PM EDT Narrative [facility] - 09/21/2024 3:40 PM EDT PT TO AGITATED TO OBTAIN LAB SAMPLE. RN AND PROVIDER AWARE. Generic External Data Provider LAB BLOOD ORDERAB LES Final Result [facility] [address] [place] [phone] * Ethanol (09/21/2024 2:21 PM EDT) [facility] ETHANOL (MG/DL) IN SER/PLAS <10 mg/dL [facility] Comment:Serum/plasma ethanol results are to be used formedical/treatment purposes only. 09/21/2024 2:21 PM EDT 09/21/2024 2:25 PM EDT Narrative [facility] - 09/21/2024 4:38 PM EDT PT TO AGITATED TO OBTAIN LAB SAMPLE. RN AND PROVIDER AWARE. us Generic External Data Provider LAB BLOOD ORDERAB LES Final Result Performing Organization Address [facility] de Phone Number [facility] [address] [place] [phone] * (ABNORMAL) CBC auto differential (09/21/2024 2:21 PM EDT) [facility] White Blood Count 17.2(H) 4.8 - 10.8 X10*3/uL [facility] Red Blood Count 4.28(L) 4.60 - 5.80 X10*6/uL [facility] Hemoglobin 14.7 14.0 - 18.0 g/dl [facility] Hematocrit 41.1(L) 42.0 - 52.0 % [facility] Mean Corpuscular Volume 96.0 80.0 - 98.0 fL [facility] Mean Corpuscular Hemoglobin 34.3(H) 27.0 - 33.0 pg [facility] Mean Corpuscular HGB Conc 35.8 31.0 - 36.0 g/dl [facility] Red Cell Distribution Width 11.6 11.0 - 16.0 % [facility] Platelet Count 320 160 - 400 X10*3/uL [facility] Mean Platelet Volume 9.4 9.4 - 12.4 fL [facility] Neutrophils Percent Auto 67.2 45 - 73 % [facility] Imm Gran Pct Auto 0.8(H) 0.0 - 0.4 % [facility] Lymphocytes Percent Auto 20.1 20 - 40 % [facility] Monocytes Percent Auto 10.6 2 - 11 % [facility] Eosinophils Percent Auto 0.9 0 - 4 % [facility] Basophils Percent Auto 0.4 0 - 2 % [facility] NRBC Pct Auto 0.0 0.0 - 0.2 /100WBC [facility] Neutrophils Absolute Auto 11.6(H) 2.0 - 8.3 x10*3/uL [facility] Imm Gran Abs Auto 0.14(H) 0.00 - 0.03 X10*3/uL [facility] Lymphocytes Absolute Auto 3.5 1.2 - 4.9 X10*3/uL [facility] Monocytes Absolute Auto 1.8(H) 0.1 - 1.2 X10*3/uL [facility] Eosinophils Absolute Auto 0.2 0.0 - 0.4 X10*3/uL [facility] Basophils Absolute Auto 0.1 0.0 - 0.2 X10*3/uL [facility] NRBC Abs Auto 0.000 0.0 - 0.012 X10*3/uL [facility] 09/21/2024 2:21 PM EDT 09/21/2024 2:25 PM EDT Narrative [facility] - 09/21/2024 3:40 PM EDT PT TO AGITATED TO OBTAIN LAB SAMPLE. RN AND PROVIDER AWARE. us Generic External Data Provider LAB BLOOD ORDERAB LES Edited Result - Final [facility] [address] [place] [phone] [phone] * Acetaminophen level (09/21/2024 2:21 PM EDT) Acetaminophen LAB <3 <30 mcg/mL [facility] 09/21/2024 2:21 PM EDT 09/21/2024 2:25 PM EDT Narrative [facility] - 09/21/2024 2:42 PM EDT PT TO AGITATED TO OBTAIN LAB SAMPLE. RN AND PROVIDER AWARE. us Generic External Data Provider LAB BLOOD ORDERAB LES Final Result Performing Organization Address [facility]/ZIP Co de Phone Number [facility] [address] [place] [phone] * (ABNORMAL) Salicylate (09/21/2024 2:21 PM EDT) Salicylate <5.0(L) 15 - 30 mg/dL [facility] 09/21/2024 2:21 PM EDT 09/21/2024 2:25 PM EDT Narrative [facility] - 09/21/2024 2:42 PM EDT PT TO AGITATED TO OBTAIN LAB SAMPLE. RN AND PROVIDER AWARE. [employer] External Data Provider LAB BLOOD ORDERAB LES Final Result Performing Organization Address [facility] Co de Phone Number [facility] [address] [place] [phone] * (ABNORMAL) Comprehensive Metabolic Panel (09/21/2024 2:21 PM EDT) Sodium 140 135 - 145 mmol/L [facility] Potassium 3.3 3.3 - 5.1 mmol/L [facility] Chloride 102 96 - 108 mmol/L [facility] Carbon Dioxide 20(L) 22 - 29 mmol/L [facility] Anion Gap 21(H) 12 - 20 [facility] Urea Nitrogen (BUN) 12 9 - 16 mg/dL [facility] Creatinine, Serum 1.14 0.5 - 1.4 mg/dL [facility] Creatinine Clr Calc Pharmacy 99.0 [facility] Comment:eGFR (calculated fro m the MDRD study equation) and eCrCl(calculated from the Cockcroft-Gault equation) are based ondifferent parameters and may not yield comparable results.If eCrCl result is absurd, please check patient'sheight/weight. Estimated Glomerular Filt Rate >60 [facility] Comment:Chronic Kidney Disea se: Estimated GFR < 60 mL/min/1.69s8Sapfgt Kidney Disease: Estimated GFR < 15 mL/min/1.73m2 Glucose 106 60 - 115 mg/dL [facility] Calcium 9.2 8.4 - 10.2 mg/dL [facility] Bilirubin, Total 0.7 0.0 - 1.0 mg/dL [facility] Aspartate Amino Transferase 190(H) 5 - 37 U/L [facility] Alanine Aminotransferase 106(H) 0 - 40 U/L [facility] Total Protein 7.4 6.5 - 8.0 g/dL [facility] Albumin Level 4.4 3.5 - 5.0 g/dL [facility] Alkaline Phosphatase 88 39 - 117 U/L [facility] 09/21/2024 2:21 PM EDT 09/21/2024 2:25 PM EDT Narrative [facility] - 09/21/2024 4:38 PM EDT PT TO AGITATED TO OBTAIN LAB SAMPLE. RN AND PROVIDER AWARE. us Generic External Data Provider LAB BLOOD ORDERAB LES Final Result [facility] [address] [place] [phone] * SARS-CoV-2 RNA, Influenza A/B, and RSV RNA, Ql NAAT (09/20/2024 2:01 PM EDT) Influenza A PCR NEGATIVE Negative [facility] Influenza B PCR NEGATIVE Negative [facility] Resp Syncy Virus RNA Qual PCR NEGATIVE Negative [facility] SARS COV2 PCR NEGATIVE Negative [facility] Comment:All test results mus t be correlated with clinical findings.Negative results do not preclude SARS-CoV2, influenza Avirus, influenza B virus and/or RSV infectionand should not be used as the sole basis for treatment orother patient management decisions. Negative results must becombined with clinical observations, patient history, andepidemiological information.This test has not been evaluated for monitoring treatment ofinfection.This test has been authorized by the FDA under an EmergencyUse Authorization (EUA) for use by authorized laboratories.Testing performed on the [employer] GeneXpert utilizingreal-time RT-PCR.All SARS CoV2 and positive influenza A/B results arereported to [facility]. 09/20/2024 2:01 PM EDT 09/20/2024 2:38 PM EDT us Generic External Data Provider LAB MICROBIOLOGY - GENERAL ORDERABLES Final Result Performing Organization Address [facility] Co de Phone Number [facility] [address] [place] [address] [phone] * HEPATITIS C AB W/REFL TO HCV RNA, QN, PCR (11/18/2020 10:02 AM EDT) HEPATITIS C ANTIBODY NON-REACT ANTOINE NON-REACT ANTOINE [facility] INDEX 0.01 <1.00 [facility] Comment: HCV antibody was non-reactive. There is no laboratory evidence of HCV infection. In most cases, no further action is required. However, if recent HCV exposure is suspected, a test for HCV RNA (test code 60985) is suggested. For additional information please refer to http://education.[employer] Technology.Skillz/faq/YXI53k5 (This link is being provided for informational/ educational purposes only.) 11/18/2020 10:0 2 AM EDT us Aby Narayan [employer] HISTORICAL/NON ORDERABLE LABS Final Result Performing Organization Address City/[facility] Co de Phone Number [facility] [address] * HIV 1/2 ANTIGEN/ANTIBODY,FOURTH GENERATION W/RFL (11/18/2020 10:02 AM EDT) HIV-1/2 ANTIGEN AND ANTIBODIES, 4TH GENERATION W/ REFLEX NON-REACT ANTOINE NON-REACT ANTOINE [facility] Comment: HIV-1 antigen and HIV-1/HIV-2 antibodies were not detected. There is no laboratory evidence of HIV infection. PLEASE NOTE: This information has been disclosed to you from records whose confidentiality may be protected by state law. If your state requires such protection, then the state law prohibits you from making any further disclosure of the information without the specific written consent of the person to whom it pertains, or as otherwise permitted by law. A general authorization for the release of medical or other information is NOT sufficient for this purpose. For additional information please refer to http://G[employer].Charity Engine/faq/VSP123 (This link is being provided for informational/ educational purposes only.) The performance of this assay has not been clinically validated in patients less than 2 years old. 11/18/2020 10:0 2 AM EDT Aby Narayan [facility] LAB BLOOD ORDERABLES Final Res ult [facility] [address] * (ABNORMAL) LIPID PANEL, STANDARD (11/18/2020 10:02 AM EDT) Chol/HDLC Ratio 5.3(H) <5.0 (calc) [facility] Cholesterol, Total 260(H) <200 mg/dL [facility] HDL Cholesterol 49 > OR = 40 mg/dL [facility] LDL Cholesterol 173(H) mg/dL (calc) [facility] Comment: Reference range: <100 Desirable range <100 mg/dL for primary prevention; <70 mg/dL for patients with CHD or diabetic patients with > or = 2 CHD risk factors. LDL-C is now calculated using the Curly calculation, which is a validated novel method providing better accuracy than the Friedewald equation in the estimation of LDL-C. Bienvenido RAGLAND et al. KLARISSA. 2013;310(19): 4885-5998 (http://education.Reonomy.Skillz/faq/SKE715) Non-HDL Cholesterol 211(H) <130 mg/dL (calc) [facility] Comment: For patients with diabetes plus 1 major ASCVD risk factor, treating to a non-HDL-C goal of <100 mg/dL (LDL-C of <70 mg/dL) is considered a therapeutic option. Triglycerides 222(H) <150 mg/dL [facility] Comment: If a non-fasting specimen was collected, consider repeat triglyceride testing on a fasting specimen if clinically indicated. Manohar et al. J. of Clin. Lipidol. 2015;9:129-169. 11/18/2020 10:0 2 AM EDT us Aby Narayan [facility] LAB BLOOD ORDERABLES Final Res ult [facility] [address] from Last 3 Months or Most Recently Relevant to Health Maintenance Insurance [facility] STANDARD
--- OUTSIDE RECORDS SUMMARY | 2024-11-01 15:20 | XMS_ITS | Encounter Summary ---
Author Organization [employer] Address [address] [facility] [address] [place] [address] Care Team Providers Care Stripper Preliminary Name Role Phone Gloria SerranoP Primary Care Provider Brianne vailable Encounter Details Date Type Department Care Team (Late st Contact Info) Description 04/13/2022 Abstract [facility] MED[facility] [address] [place] [address] Gloria Serrano FNP Social History Tobacco Use Types Packs/Day Years [...] on filedocumented in this encounter Care Teams Stripper Preliminary Relationship Specialty Start Date End Date Gloria Serrano FNP PCP - General Family Medicine 10/26/21 08/20/22 documented as of this encounter
--- OUTSIDE RECORDS SUMMARY | 2024-11-01 15:20 | XMS_ITS | Encounter Summary ---
Author Organization [employer] Address [address] [facility] [address] [place] [address] Care Team Providers Care Hand Trimmer Name Role Phone Unavailable Primary Care Provider Unavailabl e Reason for Visit * Reason Onset Date Comments [facility]W - New Patient Assistance 10/09/2024 Encounter Details Date Type Department Care Team ([facility] st Contact Info) Description 10/09/2024 Telephone [facility] MEDICINE [address] [place] [address] Gilberto Smith MD [address] [place], [place] [phone] CHW - New Patient Assistance Social History Tobacco Use Types Packs/Day Years [...] the past 12 months, has t he electric, gas, oil or water company threatened to shut [...] AM EDT documented as of this encounter Miscellaneous Notes * Telephone Encounter - Praveen Florez - 10/09/2024 10:19 AM EDT Patient added to [facility] New Patient wait list as 10-09-2024 * Telephone Encounter - Pamela Porras - 10/09/2024 8:30 AM EDT Tc from pt stating he is currently out of state and he would like to reschedule apt , pt says he will be back in [place] 10/12. Contact pt at [phone] documented in this encounter Plan of Treatment Not on file documented as of this encounter Visit Diagnoses Not on filedocumented in this encounter
--- OUTSIDE RECORDS SUMMARY | 2024-11-01 15:20 | XMS_ITS | Encounter Summary ---
Author Organization [employer] Address [address] [place] [address] Care Team Providers Care Egg Tester Name Role Phone Unavailable Primary Care Provider Unavailabl e Encounter Details Date Type Department Care Team ([facility] st Contact Info) Description 09/26/2024 Results Follow-Up [facility] [address] [place] [address] Provider, Generic External Data XR Chest 1 View Social History Tobacco Use Types Packs/Day Years Used Date Smoking Tobacco: Every Day Cigarettes Passive Smoke Exposure: Current Smokeless Tobacco: Never Alcohol Use Standard Drinks/Week Comments Not Currently 0 (1 standard drink = 0.6 oz pur e alcohol) Housing Stability Answer Date Recorded What is your housing situation today? I have julio zayas 09/28/[address] you [...]
--- OUTSIDE RECORDS SUMMARY | 2024-11-01 15:20 | XMS_ITS | Clinical Summary ---
Author Organization [facility] [facility] ity Address [address] [place] [address] Care Team Providers Care Welding Setter Name Role Phone Eneida Watters MD Primary Care Provider [phone] Surgical History Surgery Date Site/Laterality Comments OTHER SURGICAL HISTORY PROCEDURE: DENIES PREVIOUS SURGERY Medical History Medical History Date Comments Anxiety 01/11/2014 DX:Anxiety PTSD (post-traumatic stress disorder) 01/11/2014 DX:PTSD (post-traumatic stress disorder) History of substance abuse ( [facility] V24, [facility] V28) 01/11/2014 DX:History of substance abus e ([facility]) ADHD (attention deficit hype ractivity [...] Due Date Last Done Comments Depression Screening 03/01/2024 DTaP,Tdap,and Td Vaccines (8 - Td or Tdap) 08/10/2024 08/10/2014, 12/23/2004, 06/06/1997, Additional history exists COVID-19 Vaccine ( season) 2024 Influenza Vaccine (#1) 2024 Hepatitis B Vaccines [...] age to complete this topic Care Teams Welding Setter Relationship Specialty Start Date End Date Eneida Watters MD PCP - General Internal Medicine 01/23/20
[2024-11-01] MEDS: OLANZapine 10 MG VIAL IM (17:18)
[2024-11-01 18:10] VITALS: BP 149/85; PULSE 116; O2SAT 99
[2024-11-01 18:25] VITALS: BP 148/96; PULSE 110; RESP 20
--- NOTE | 2024-11-01 19:55 | PC.NURSE ---
report given to Candice SYED on M5.
[2024-11-01 20:00] VITALS: RESP 18
--- NOTE | 2024-11-02 07:47 | PC.ADMIT ---
Patient is a 29 year old single male admitted on a 12 B at 2017 to 11/01/24 and placed on 15 minute safety checks. He was medically cleared in the [facility] ED evaluated by the CARE team and deemed in need of IPLOC secondary to believing someone is trying to kill him. He apparently threatened to kill his mother amd she called the police. The mother said that her son told her if she called the police he would do a suicide by helicopter pilot. He was also found outside of an elementary school yelling with his shirt off. He has a history of alcohol use, aggression, noncompliance with medications and multiple IPLOC, including at [facility]. Patient declined to sign any paperwork, denied any SI, HI, AVH. He was noted on admission to to be grabbing at the air and looking around. He started yelling about being held in this fucking place and demanded to be discharged. Patient was given Ativan 2 mg po and encouraged to relax. Patient was also upset that he had not eaten in 3 days although he was provided food in the ED POD and also on arrival to .
--- NOTE | 2024-11-02 07:59 | PC.NURSE ---
Patient was agitated all night, resistive to care, staggering down the hallway, responding to internal stimuli. He did not want to engage with this senior copywriter and yelled You sound just like my mother . He was given snacks, allowed to shower and reassured of his safety. At 0445 patient began banging his face into the wall and sustained a bloody nose and multiple bumps on his forehead. Nursing supervisor cabinetmaker notified. Patient had no loss of consciousness, moving all extremities without difficulty, pupils equal and reactive to light. Patient denied any pain. Vitals taken: BP 128/87, HR 84, RR 18, O2 sat 98% on room air, skin temp. 98.4. Dr. Cat notified at 0600, no new orders received.
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
[2024-11-02] MEDS: Nicotine 21 MG PATCH.TD24 TRANSDERMA (15:00)
[2024-11-03] MEDS: Nicotine 21 MG PATCH.TD24 TRANSDERMA ×2 (03:39→08:59)
[2024-11-03 08:00] VITALS: BP 147/82; PULSE 117; TEMP 36.4; O2SAT 98
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
[2024-11-03] MEDS: Nicotine Polacrilex Lozenge 4 MG LOZENGE BUCCAL ×4 (13:16→22:03)
[2024-11-03] MEDS: Throat Lozenge, Medicated LOZENGE 1 LOZENGE MUCOUS MEM ×2 (15:51→22:11)
[2024-11-03 16:00] VITALS: BP 133/62; PULSE 112; TEMP 36.1; O2SAT 99
[2024-11-03 20:24] VITALS: BP 126/65; PULSE 88; RESP 16; TEMP 36.2; O2SAT 98
[2024-11-04] MEDS: Nicotine Polacrilex Lozenge 4 MG LOZENGE BUCCAL ×8 (00:16→20:47)
[2024-11-04] MEDS: Throat Lozenge, Medicated LOZENGE 1 LOZENGE MUCOUS MEM ×4 (03:45→20:47)
[2024-11-04 08:13] VITALS: BP 124/64; PULSE 98; RESP 18; TEMP 36.4; O2SAT 98
--- NOTE | 2024-11-04 08:28 | P.PNPSI_ITS ---
Subjective Subjective Date of Service: 11/04/24 Reason For Visit: SECTION 12, SI Interim History: Met With patient; discussed with team; reviewed chart Patient manic, dancing in the halls, doing karate moves, singing out loud to himself, sometimes intrusive with peers. Patient initially said he would take medication then said he would not take it and refused; said he would get blood draw but then when phlebotomy became refuse saying ... I am not give new my blood... you are going to keep my blood. Later, patient then said he would take Clozaril and Tegretol. stopped [place] Simethicone Mental Status Exam Mental Status Exam Narrative: Pt is alert and oriented; behavior manic, dancing in the hallways, doing karate moves, cleaning excessively, running; intrusive with peers; patient is not in distress; dressed in hospital attire, towel in his head, facial hair; mood is described as good and affect expansive; eye contact appropriate; Speech is normal rate, volume and prosody and not pressured; psychomotor agitation present; thought process is goal directed; Thought content with some paranoid delusions; otherwise will not disclose much; paranoid ideations present; unable to assess for SI/HI as patient will not engage; patient appears internally preoccupied. Patients insight and judgment impaired Diagnostics Vital Signs (24Hr): Vital Signs - 24 hr 11/03/24 16:00 11/03/24 20:24 11/04/24 08:13 Temperature 97 F 97.1 F 97.6 F Pulse Rate 112 H 88 98 Respiratory Rate 16 18 Blood Pressure 133/62 126/65 124/64 Pulse Oximetry 99 98 98 Oxygen Delivery Method Room Air Room Air Room Air BMI result Body Mass Index 24.2 Medications Medications Current Medications Acetaminophen (Acetaminophen 325 Mg Tablet) 650 mg PO Q6H PRN PRN Reason: Headache/Pain, Scale 1-10 Last Admin: 11/04/24 03:46 Dose: 650 mg Al Hydroxide/Mg Hydroxide (Magnesium Hydrox/Alum Hydrox 30 Ml Oral.Susp) 30 ml PO Q6H PRN PRN Reason: Heartburn/Nausea Benzocaine (Throat Lozenge, Medicated Lozenge) 1 lozenge MUCOUS MEM Q2H PRN PRN Reason: Sore Throat Last Admin: 11/04/24 06:52 Dose: 1 lozenge Carbamazepine (Carbamazepine 200 Mg Tablet) 400 mg PO BID [facility] Last Admin: 11/03/24 23:14 Dose: Not Given Clozapine (Clozapine 100 Mg Tablet) 100 mg PO BEDTIME FANNIE Stop: 11/04/24 21:01 Clozapine 100 mg/ Clozapine 50 (mg) 150 mg PO BEDTIME FANNIE Folic Acid (Folic Acid 1 Mg Tablet) 1 mg PO DAILY [facility] Last Admin: 11/03/24 08:53 Dose: 1 mg Hydroxyzine HCl (Hydroxyzine Hcl 25 Mg Tablet) 25 mg PO Q6H PRN PRN Reason: mild anxiety Last Admin: 11/01/24 21:49 Dose: 25 mg Lisinopril (Lisinopril 20 Mg Tablet) 20 mg PO DAILY [facility]; Protocol Last Admin: 11/03/24 08:53 Dose: 20 mg Lorazepam (Lorazepam 1 Mg Tablet) 2 mg PO Q3H PRN PRN Reason: Alcohol Withdrawal Last Admin: 11/03/24 03:34 Dose: 2 mg Lorazepam (Lorazepam 1 Mg Tablet) 1 mg PO Q4H PRN PRN Reason: Anxiety Last Admin: 11/02/24 21:38 Dose: 1 mg Magnesium Hydroxide (Milk Of Magnesia 30 Ml Oral.Susp) 30 ml PO DAILY PRN PRN Reason: Constipation Melatonin (Melatonin 3 Mg Tablet) 6 mg PO BEDTIME PRN PRN Reason: Insomnia Last Admin: 11/03/24 22:07 Dose: 6 mg Multi-Ingred Medicated Throat [place] (Throat [place], Medicated 177 Ml Bottle) 1 spray MUCOUS MEM Q2H PRN PRN Reason: Sore Throat Multivitamins/Vitamin C (Multivitamin Tablet) 1 tab PO DAILY [facility] Last Admin: 11/03/24 08:53 Dose: 1 tab Nicotine (Nicotine 21 Mg Patch.Td24) 21 mg TRANSDERMA DAILY [facility] Last Admin: 11/03/24 08:59 Dose: 21 mg Nicotine Polacrilex (Nicotine Polacrilex Lozenge 4 Mg Lozenge) 4 mg BUCCAL Q2H PRN PRN Reason: Nicotine Cravings Last Admin: 11/04/24 06:52 Dose: 4 mg Olanzapine (Olanzapine 5 Mg Tablet) 5 mg PO Q4H PRN PRN Reason: agitation Last Admin: 11/03/24 03:34 Dose: 5 mg Senna/Docusate Sodium (Sennosides/Docusate Sodium Tablet) 1 tab PO DAILY [facility] Last Admin: 11/03/24 09:00 Dose: Not Given Thiamine HCl (Thiamine Hcl 100 Mg Tablet) 100 mg PO DAILY [facility] Last Admin: 11/03/24 08:53 Dose: 100 mg Trazodone HCl (Trazodone Hcl 100 Mg Tablet) 100 mg PO BEDTIME [facility] Last Admin: 11/03/24 23:14 Dose: Not Given Allergies Allergies Allergy/AdvReac Type Severity Reaction Status Date / Time haloperidol (From Haldol) AdvReac Severe dystonia Verified 11/01/24 10:09 Assessment & Plan Assessment & Plan (1) Schizoaffective disorder, bipolar type: Status: Acute Code(s): F25.0 - Schizoaffective disorder, bipolar type (2) Acute psychosis: Status: Acute Code(s): F23 - Brief psychotic disorder (3) Suicidal ideations: Status: Acute Code(s): R45.851 - Suicidal ideations (4) Homicidal ideation: Status: Acute Code(s): R45.850 - Homicidal ideations (5) Alcohol use disorder: Status: Acute Code(s): F10.90 - Alcohol use, unspecified, uncomplicated Plan HPI: 29 yo male, to ER with EMS, reporting SI,HI and believes he will be killed. Pt had threatened to kill his mom and suicide by police if she called for help from police. Pt ran from police and CHD team. He was found, outside of [employer] yelling with his shirt removed. Pt last at [facility] 09/22/24 to 09/27/24. Pt told team that he was being followed and felt that something was connected to him. Pt was medicine noncompliant prior to admit and exhibited psychotic symptoms in the ER with response to internal stimuli. He discussed concerns with the devil, reports auditory perceptual alterations. He tells team he has been without sleep or food for days. Lives with mother, step father, brother and sister who are concerned for his well being. Mother tells team pt has been doing poorly for ~72 hours-yelling, threatening to kill her and himself. He has been focused on the devil. Pt was kicking the door and yelling today-neighbors called police. Pt admitted to medicine non compliance. Met with pt and Gary DUNCAN. Pt is a poor historian, with confusion, disoorientation, psychosis and posturing. He attempts to place his hair in a pony tail and struggles. He sits with his head down and is non verbal at times. He answers questions with brief answers, at times without making logical sense. He presents with fear when having to talk with others, has been wandering into others rooms and collecting of belongings. Hospital course: 11/04 Patient manic, dancing in the halls, doing karate moves, singing out loud to himself, sometimes intrusive with peers. Patient initially said he would take medication then said he would not take it and refused; said he would get blood draw but then when phlebotomy became refuse saying ... I am not give new my blood... you are going to keep my blood. Later, patient then said he would take Clozaril and Tegretol. Patient difficult with which to engage. -stopped CIWA; not scoring -patient asked for Simethicone -will continue with Clozaril even though patient refusing blood draw; he has history of tolerating clozapine without issue and patient needs medication Plan: 12B Clozaril 50 mg b.i.d.; patient has long history of tolerating this this medication; patient most hypertensive but will monitor for hypotension Continue Tegretol 400 mg b.i.d. patient manic Re-start regime, clozaril to begin at 25 mg. ?need for Royer ROSS. vitamin replacement Diagnostics as pt will allow. Encourage milieu involvement as pt recovers. Patient educated on: diagnosis and medication risk/benefits Informed Consent: does not understand Reason for continued inpatient stay Substantial Risk for: inability to function Time Spent With Patient Time: Total time managing care of this patient today ____ minutes.
--- NOTE | 2024-11-04 10:29 | HE.PHANOTE ---
CLOZAPINE MONITORING NOTE: Spoke with Dr Cat in regards to this patient refusing labs and medication. Per MD communication this patient has been on clozaril a long time, he is currently very manic and Dr Cat feels benefits outweigh the risks of trying to get him back on clozaril. He has currently taken a 25 mg dose and new order was dropped to 50 mg bid. His most recent ANC is from end of August. Continue to monitor.
[2024-11-04 16:51] LABS: MANUAL DIFF FLAG NO
[2024-11-04 16:58] LABS: Hematocrit 41.3 % (42.0-52.0); Hemoglobin 14.6 g/dl (14.0-18.0); Imm Gran Abs Auto 0.02 X10*3/uL (0.00-0.03); Imm Gran Pct Auto 0.3 % (0.0-0.4); Lymphocytes Absolute Auto 1.4 X10*3/uL (1.2-4.9); Mean Corpuscular HGB Conc 35.4 g/dl (31.0-36.0); Mean Corpuscular Hemoglobin 34.0 pg (27.0-33.0); Mean Corpuscular Volume 96.0 fL (80.0-98.0); NRBC Abs Auto 0.000 X10*3/uL (0.0-0.012); NRBC Pct Auto 0.0 /100WBC (0.0-0.2); Platelet Count 304 X10*3/uL (160-400); Red Blood Count 4.30 X10*6/uL (4.60-5.80); White Blood Count 6.7 X10*3/uL (4.8-10.8)
[2024-11-04 17:30] LABS: Hemoglobin A1C 121.0624 umol/L; Total Hemoglobin (HGBA1C) 3719.6283 umol/L
[2024-11-04 17:36] LABS: Alanine Aminotransferase 82 U/L (0-40); Albumin Level 4.4 g/dL (3.5-5.0); Alkaline Phosphatase 87 U/L (39-117); Anion Gap 15 (12-20); Aspartate Amino Transferase 78 U/L (5-37); Blood Urea Nitrogen 14 mg/dL (9-16); Calcium 10.1 mg/dL (8.4-10.2); Carbon Dioxide 28 mmol/L (22-29); Chloride 102 mmol/L (96-108); Cholesterol 178 mg/dL (<200); Creatinine Clr Calc Pharmacy 117.7; Estimated Glomerular Filt Rate > 60; HDL Cholesterol 44 mg/dL (>40); Magnesium 1.9 mg/dL (1.6-2.6); Potassium 4.7 mmol/L (3.3-5.1); Sodium 140 mmol/L (135-145); Total Protein 7.4 g/dL (6.5-8.0); Triglycerides 230 mg/dL (<150)
[2024-11-04 17:53] LABS: Thyroid Stimulating Hormone 0.93 uIU/mL (0.32-4.0)
[2024-11-04 21:04] VITALS: BP 119/65; PULSE 100; RESP 16; TEMP 37.2
[2024-11-05] MEDS: Nicotine Polacrilex Lozenge 4 MG LOZENGE BUCCAL ×5 (01:03→19:37)
[2024-11-05] MEDS: Throat Lozenge, Medicated LOZENGE 1 LOZENGE MUCOUS MEM ×6 (01:03→19:37)
[2024-11-05 07:41] VITALS: RESP 18
[2024-11-05] MEDS: Nicotine 21 MG PATCH.TD24 TRANSDERMA (11:11)
--- NOTE | 2024-11-05 12:41 | HO.PSYCHPN ---
Subjective Subjective Date of Service: 11/05/24 Reason For Visit: SECTION 12, SI Interim History: met with patient; discussed with team little sleep; remains manic, dancing in hallways; antagonistic to select peers hwoever, pt did take medications (tegretol and clozapine), though it need to be re-offered. Pt came to credit underwriter and said he'd continue taking the medications Mental Status Exam Mental Status Exam Narrative: Pt is alert and oriented; behavior manic, dancing in the hallways, doing karate moves, cleaning excessively, running; intrusive with peers; patient is not in distress; dressed in hospital attire, shirt on his head, facial hair; mood is described as good and affect expansive; eye contact appropriate; Speech is normal rate, volume and prosody and not pressured; psychomotor agitation present; thought process is goal directed; Thought content with some paranoid delusions; otherwise will not disclose much; did not express SI/HI; patient appears internally preoccupied. Patients insight and judgment impaired Diagnostics Vital Signs (24Hr): Vital Signs - 24 hr 11/04/24 21:04 11/05/24 07:41 Temperature 99.0 F Pulse Rate 100 Respiratory Rate 16 18 Blood Pressure 119/65 Oxygen Delivery Method Room Air BMI result Body Mass Index 24.2 Labs 11/04/24 16:36 11/04/24 16:36 Labs: Laboratory Results - last 48 hr 11/04/24 16:36 WBC 6.7 RBC 4.30 L Hgb 14.6 Hct 41.3 L MCV 96.0 MCH 34.0 H MCHC 35.4 RDW 11.6 Plt Count 304 MPV 9.3 L Immature Gran % (Auto) 0.3 Neut % (Auto) 64.6 Lymph % (Auto) 21.0 [place] % (Auto) 11.7 H Eos % (Auto) 1.8 Baso % (Auto) 0.6 Lymph # (Auto) 1.4 [place] # (Auto) 0.8 Eos # (Auto) 0.1 Baso # (Auto) 0.0 Abs Immat Gran (auto) 0.02 Absolute Neuts (auto) 4.3 Absolute Nucleated RBC 0.000 Nucleated RBC % (auto) 0.0 Sodium 140 Potassium 4.7 Chloride 102 Carbon Dioxide 28 Anion Gap 15 BUN 14 Creatinine 0.82 Estim Creat Clear Calc 117.7 Estimated GFR > 60 Random Glucose 66 Estimat Average Glucose 100 Hemoglobin A1c % 5.1 Calcium 10.1 D Magnesium 1.9 Total Bilirubin 0.3 Direct Bilirubin 0.1 AST 78 H ALT 82 H Alkaline Phosphatase 87 Total Protein 7.4 Albumin 4.4 Triglycerides 230 H Cholesterol 178 LDL Cholesterol, Calc 88 HDL Cholesterol 44 TSH 0.93 Medications Medications Current Medications Acetaminophen (Acetaminophen 325 Mg Tablet) 650 mg PO Q6H PRN PRN Reason: Headache/Pain, Scale 1-10 Last Admin: 11/05/24 05:18 Dose: 650 mg Al Hydroxide/Mg Hydroxide (Magnesium Hydrox/Alum Hydrox 30 Ml Oral.Susp) 30 ml PO Q6H PRN PRN Reason: Heartburn/Nausea Benzocaine (Throat Lozenge, Medicated Lozenge) 1 lozenge MUCOUS MEM Q2H PRN PRN Reason: Sore Throat Last Admin: 11/05/24 11:13 Dose: 1 lozenge Carbamazepine (Carbamazepine 200 Mg Tablet) 400 mg PO BID [facility] Last Admin: 11/05/24 08:46 Dose: 400 mg Chlorpromazine HCl (Chlorpromazine Hcl 100 Mg Tablet) 100 mg PO QID PRN PRN Reason: agitation Clozapine (Clozapine 25 Mg Tablet) 50 mg PO DAILY [facility] Clozapine (Clozapine 25 Mg Tablet) 75 mg PO BEDTIME [facility] Folic Acid (Folic Acid 1 Mg Tablet) 1 mg PO DAILY [facility] Last Admin: 11/05/24 08:46 Dose: 1 mg Hydroxyzine HCl (Hydroxyzine Hcl 25 Mg Tablet) 25 mg PO Q6H PRN PRN Reason: mild anxiety Last Admin: 11/01/24 21:49 Dose: 25 mg Lisinopril (Lisinopril 20 Mg Tablet) 20 mg PO DAILY [facility]; Protocol Last Admin: 11/05/24 08:46 Dose: Not Given Magnesium Hydroxide (Milk Of Magnesia 30 Ml Oral.Susp) 30 ml PO DAILY PRN PRN Reason: Constipation Melatonin (Melatonin 3 Mg Tablet) 6 mg PO BEDTIME PRN PRN Reason: Insomnia Last Admin: 11/05/24 01:02 Dose: 6 mg Multi-Ingred Medicated Throat [place] (Throat [place], Medicated 177 Ml Bottle) 1 spray MUCOUS MEM Q2H PRN PRN Reason: Sore Throat Multivitamins/Vitamin C (Multivitamin Tablet) 1 tab PO DAILY [facility] Last Admin: 11/05/24 08:46 Dose: 1 tab Nicotine (Nicotine 21 Mg Patch.Td24) 21 mg TRANSDERMA DAILY [facility] Last Admin: 11/05/24 11:11 Dose: 21 mg Nicotine Polacrilex (Nicotine Polacrilex Lozenge 4 Mg Lozenge) 4 mg BUCCAL Q2H PRN PRN Reason: Nicotine Cravings Last Admin: 11/05/24 08:46 Dose: 4 mg Senna/Docusate Sodium (Sennosides/Docusate Sodium Tablet) 1 tab PO DAILY [facility] Last Admin: 11/05/24 08:46 Dose: 1 tab Simethicone (Simethicone 80 Mg Tab.Chew) 80 mg PO QIDWMHS PRN PRN Reason: flatulance Thiamine HCl (Thiamine Hcl 100 Mg Tablet) 100 mg PO DAILY [facility] Last Admin: 11/05/24 08:46 Dose: 100 mg Trazodone HCl (Trazodone Hcl 100 Mg Tablet) 100 mg PO BEDTIME [facility] Last Admin: 11/05/24 01:02 Dose: 100 mg Allergies Allergies Allergy/AdvReac Type Severity Reaction Status Date / Time haloperidol (From Haldol) AdvReac Severe dystonia Verified 11/01/24 10:09 Assessment & Plan Assessment & Plan (1) Schizoaffective disorder, bipolar type: Status: Acute Code(s): F25.0 - Schizoaffective disorder, bipolar type (2) Acute psychosis: Status: Acute Code(s): F23 - Brief psychotic disorder (3) Suicidal ideations: Status: Acute Code(s): R45.851 - Suicidal ideations (4) Homicidal ideation: Status: Acute Code(s): R45.850 - Homicidal ideations (5) Alcohol use disorder: Status: Acute Code(s): F10.90 - Alcohol use, unspecified, uncomplicated Plan HPI: 29 yo male, to ER with EMS, reporting SI,HI and believes he will be killed. Pt had threatened to kill his mom and suicide by police if she called for help from police. Pt ran from police and CHD team. He was found, outside of [employer] yelling with his shirt removed. Pt last at [facility] 09/22/24 to 09/27/24. Pt told team that he was being followed and felt that something was connected to him. Pt was medicine noncompliant prior to admit and exhibited psychotic symptoms in the ER with response to internal stimuli. He discussed concerns with the devil, reports auditory perceptual alterations. He tells team he has been without sleep or food for days. Lives with mother, step father, brother and sister who are concerned for his well being. Mother tells team pt has been doing poorly for ~72 hours-yelling, threatening to kill her and himself. He has been focused on the devil. Pt was kicking the door and yelling today-neighbors called police. Pt admitted to medicine non compliance. Met with pt and Gary DUNCAN. Pt is a poor historian, with confusion, disoorientation, psychosis and posturing. He attempts to place his hair in a pony tail and struggles. He sits with his head down and is non verbal at times. He answers questions with brief answers, at times without making logical sense. He presents with fear when having to talk with others, has been wandering into others rooms and collecting of belongings. Hospital course: 11/04 Patient manic, dancing in the halls, doing karate moves, singing out loud to himself, sometimes intrusive with peers. Patient initially said he would take medication then said he would not take it and refused; said he would get blood draw but then when phlebotomy became refuse saying ... I am not give new my blood... you are going to keep my blood. Later, patient then said he would take Clozaril and Tegretol. Patient difficult with which to engage. -stopped CIWA; not scoring -patient asked for Simethicone -will continue with Clozaril even though patient refusing blood draw; he has history of tolerating clozapine without issue and patient needs medication 11/05 little sleep; remains manic, dancing in hallways; antagonistic to select peers hwoever, pt did take medications (tegretol and clozapine), though it need to be re-offered. Pt came to credit underwriter and said he'd continue taking the medications -refusing labs -refusing vitals Plan: 12B Titrated to Clozaril 50mg daily and 75 mg qhs; (long hx tolerating this med; will monitor for hypotension) Continue Tegretol 400 mg b.i.d. patient manic vitamin replacement Diagnostics as pt will allow. Encourage milieu involvement as pt recovers. Patient educated on: diagnosis and medication risk/benefits Informed Consent: understands, does not understand and further education needed Reason for continued inpatient stay Substantial Risk for: inability to function Time Spent With Patient Time: Total time managing care of this patient today ____ minutes.
[2024-11-06] MEDS: Nicotine Polacrilex Lozenge 4 MG LOZENGE BUCCAL ×5 (06:13→22:01)
[2024-11-06 08:00] VITALS: RESP 18
[2024-11-06] MEDS: Throat Lozenge, Medicated LOZENGE 1 LOZENGE MUCOUS MEM ×3 (08:12→18:58)
--- NOTE | 2024-11-06 09:37 | HO.PSYCHPN ---
Subjective Subjective Date of Service: 11/06/24 Reason For Visit: SECTION 12, SI Subjective Notes: Conditional Voluntary Healthcare Proxy: No Guardianship: No Medical Problems Affecting Mental Status: No Interim History: Declines offer to file [facility] application. Declines to meet today-spending time on the phone with peers, states I don't know if I can tolerate living with my mother, I can live with my girlfriend, this may be better for me. My mother treats me like I am her and she owns me. Compliant with medications. Denies SI,HI,AH,VH. Some lability noted. Conflict with one peer who is currently decompensated. Team is watching this contact carefully. Pt aware this peer is ill and is aware he will need to have added tolerance Medication Compliance: Yes Side effects from medications: No Attending Groups: Intermittent Review of Systems Acute medical concerns: No Medical Review of Systems: unchanged Review of Systems Review of Systems denies Mental Status Exam Mental Status Exam Patient Appearance: Appropriate Patient Orientation: Person, Place, Time and Situation Level of Consciousness: Alert Patient Behavior: Talkative and Good Eye Contact Mood Description: Blunted Affect Description: Blunted Patient Cognition Impaired: No Ability to Follow Directions: Good Speech Pattern: Appropriate Memory Description: Episodic Impaired Hallucinations: None Delusions: Not Present Perceptual Disturbances: Depersonalization Thought Process: Distracted Thought Content: positive for Circumstantial and positive for Suicidal Ideation (denies) Depressive Symptoms: Increased Anxiety, Insomnia, Difficulty Sleeping and Low Self Esteem Judgement: Fair Diagnostics Vital Signs (24Hr): Vital Signs - 24 hr 11/06/24 08:00 Respiratory Rate 18 BMI result Body Mass Index 24.2 Labs 11/04/24 16:36 11/04/24 16:36 Labs: Laboratory Results - last 48 hr 11/04/24 16:36 WBC 6.7 RBC 4.30 L Hgb 14.6 Hct 41.3 L MCV 96.0 MCH 34.0 H MCHC 35.4 RDW 11.6 Plt Count 304 MPV 9.3 L Immature Gran % (Auto) 0.3 Neut % (Auto) 64.6 Lymph % (Auto) 21.0 [place] % (Auto) 11.7 H Eos % (Auto) 1.8 Baso % (Auto) 0.6 Lymph # (Auto) 1.4 [place] # (Auto) 0.8 Eos # (Auto) 0.1 Baso # (Auto) 0.0 Abs Immat Gran (auto) 0.02 Absolute Neuts (auto) 4.3 Absolute Nucleated RBC 0.000 Nucleated RBC % (auto) 0.0 Sodium 140 Potassium 4.7 Chloride 102 Carbon Dioxide 28 Anion Gap 15 BUN 14 Creatinine 0.82 Estim Creat Clear Calc 117.7 Estimated GFR > 60 Random Glucose 66 Estimat Average Glucose 100 Hemoglobin A1c % 5.1 Calcium 10.1 D Magnesium 1.9 Total Bilirubin 0.3 Direct Bilirubin 0.1 AST 78 H ALT 82 H Alkaline Phosphatase 87 Total Protein 7.4 Albumin 4.4 Triglycerides 230 H Cholesterol 178 LDL Cholesterol, Calc 88 HDL Cholesterol 44 TSH 0.93 Medications Medications Current Medications Acetaminophen (Acetaminophen 325 Mg Tablet) 650 mg PO Q6H PRN PRN Reason: Headache/Pain, Scale 1-10 Last Admin: 11/05/24 21:13 Dose: 650 mg Al Hydroxide/Mg Hydroxide (Magnesium Hydrox/Alum Hydrox 30 Ml Oral.Susp) 30 ml PO Q6H PRN PRN Reason: Heartburn/Nausea Benzocaine (Throat Lozenge, Medicated Lozenge) 1 lozenge MUCOUS MEM Q2H PRN PRN Reason: Sore Throat Last Admin: 11/06/24 08:12 Dose: 1 lozenge Carbamazepine (Carbamazepine 200 Mg Tablet) 400 mg PO BID [facility] Last Admin: 11/06/24 09:02 Dose: 400 mg Chlorpromazine HCl (Chlorpromazine Hcl 100 Mg Tablet) 100 mg PO QID PRN PRN Reason: agitation Clozapine (Clozapine 25 Mg Tablet) 50 mg PO DAILY [facility] Last Admin: 11/06/24 09:03 Dose: 50 mg Clozapine (Clozapine 25 Mg Tablet) 75 mg PO BEDTIME [facility] Last Admin: 11/05/24 21:13 Dose: 75 mg Folic Acid (Folic Acid 1 Mg Tablet) 1 mg PO DAILY [facility] Last Admin: 11/06/24 09:03 Dose: 1 mg Hydroxyzine HCl (Hydroxyzine Hcl 25 Mg Tablet) 25 mg PO Q6H PRN PRN Reason: mild anxiety Last Admin: 11/01/24 21:49 Dose: 25 mg Lisinopril (Lisinopril 20 Mg Tablet) 20 mg PO DAILY [facility]; Protocol Last Admin: 11/06/24 09:04 Dose: Not Given Magnesium Hydroxide (Milk Of Magnesia 30 Ml Oral.Susp) 30 ml PO DAILY PRN PRN Reason: Constipation Melatonin (Melatonin 3 Mg Tablet) 6 mg PO BEDTIME PRN PRN Reason: Insomnia Last Admin: 11/05/24 21:17 Dose: 6 mg Multi-Ingred Medicated Throat [place] (Throat [place], Medicated 177 Ml Bottle) 1 spray MUCOUS MEM Q2H PRN PRN Reason: Sore Throat Multivitamins/Vitamin C (Multivitamin Tablet) 1 tab PO DAILY [facility] Last Admin: 11/06/24 09:03 Dose: 1 tab Nicotine (Nicotine 21 Mg Patch.Td24) 21 mg TRANSDERMA DAILY [facility] Last Admin: 11/06/24 09:08 Dose: Not Given Nicotine Polacrilex (Nicotine Polacrilex Lozenge 4 Mg Lozenge) 4 mg BUCCAL Q2H PRN PRN Reason: Nicotine Cravings Last Admin: 11/06/24 09:03 Dose: 4 mg Senna/Docusate Sodium (Sennosides/Docusate Sodium Tablet) 1 tab PO DAILY [facility] Last Admin: 11/06/24 09:03 Dose: 1 tab Simethicone (Simethicone 80 Mg Tab.Chew) 80 mg PO QIDWMHS PRN PRN Reason: flatulance Thiamine HCl (Thiamine Hcl 100 Mg Tablet) 100 mg PO DAILY [facility] Last Admin: 11/06/24 09:03 Dose: 100 mg Trazodone HCl (Trazodone Hcl 100 Mg Tablet) 100 mg PO BEDTIME [facility] Last Admin: 11/05/24 21:15 Dose: Not Given Allergies Allergies Allergy/AdvReac Type Severity Reaction Status Date / Time haloperidol (From Haldol) AdvReac Severe dystonia Verified 11/01/24 10:09 Assessment & Plan Assessment & Plan (1) Schizoaffective disorder, bipolar type: Status: Acute Code(s): F25.0 - Schizoaffective disorder, bipolar type (2) Acute psychosis: Status: Acute Code(s): F23 - Brief psychotic disorder (3) Suicidal ideations: Status: Acute Code(s): R45.851 - Suicidal ideations (4) Homicidal ideation: Status: Acute Code(s): R45.850 - Homicidal ideations (5) Alcohol use disorder: Status: Acute Code(s): F10.90 - Alcohol use, unspecified, uncomplicated Plan HPI: 29 yo male, to ER with EMS, reporting SI,HI and believes he will be killed. Pt had threatened to kill his mom and suicide by police if she called for help from police. Pt ran from police and CHD team. He was found, outside of [employer] yelling with his shirt removed. Pt last at [facility] 09/22/24 to 09/27/24. Pt told team that he was being followed and felt that something was connected to him. Pt was medicine noncompliant prior to admit and exhibited psychotic symptoms in the ER with response to internal stimuli. He discussed concerns with the devil, reports auditory perceptual alterations. He tells team he has been without sleep or food for days. Lives with mother, step father, brother and sister who are concerned for his well being. Mother tells team pt has been doing poorly for ~72 hours-yelling, threatening to kill her and himself. He has been focused on the devil. Pt was kicking the door and yelling today-neighbors called police. Pt admitted to medicine non compliance. Met with pt and Gary DUNCAN. Pt is a poor historian, with confusion, disoorientation, psychosis and posturing. He attempts to place his hair in a pony tail and struggles. He sits with his head down and is non verbal at times. He answers questions with brief answers, at times without making logical sense. He presents with fear when having to talk with others, has been wandering into others rooms and collecting of belongings. Hospital course: 11/04 Patient manic, dancing in the halls, doing karate moves, singing out loud to himself, sometimes intrusive with peers. Patient initially said he would take medication then said he would not take it and refused; said he would get blood draw but then when phlebotomy became refuse saying ... I am not give new my blood... you are going to keep my blood. Later, patient then said he would take Clozaril and Tegretol. Patient difficult with which to engage. -stopped CIWA; not scoring -patient asked for Simethicone -will continue with Clozaril even though patient refusing blood draw; he has history of tolerating clozapine without issue and patient needs medication 11/05 little sleep; remains manic, dancing in hallways; antagonistic to select peers solitario, pt did take medications (tegretol and clozapine), though it need to be re-offered. Pt came to keno writer / runner and said he'd continue taking the medications -refusing labs -refusing vitals 11/06 continue regime. Clozaril increase 11/07. Pt agrees. Declines [facility] referral at this time. Plan: 12B Titrated to Clozaril 50mg daily and 75 mg qhs; (long hx tolerating this med; will monitor for hypotension) Continue Tegretol 400 mg b.i.d. patient manic vitamin replacement Diagnostics as pt will allow. Encourage milieu involvement as pt recovers. Reason for continued inpatient stay Substantial Risk for: rapid decompensation Time Spent With Patient Time: Total time managing care of this patient today ____ minutes.
[2024-11-06 20:00] VITALS: BP 144/81; PULSE 118; RESP 16; TEMP 36.4; O2SAT 98
[2024-11-07] MEDS: Nicotine Polacrilex Lozenge 4 MG LOZENGE BUCCAL ×3 (02:13→19:16)
[2024-11-07] MEDS: Throat Lozenge, Medicated LOZENGE 1 LOZENGE MUCOUS MEM ×3 (06:17→19:16)
[2024-11-07 08:00] VITALS: BP 165/88; PULSE 110; RESP 16; TEMP 36.4; O2SAT 98
--- NOTE | 2024-11-07 09:58 | P.PNPSI_ITS ---
Subjective Subjective Date of Service: 11/07/24 Reason For Visit: SECTION 12, SI Subjective Notes: Conditional Voluntary Healthcare Proxy: No Guardianship: No Medical Problems Affecting Mental Status: No Interim History: Reports poor sleep, however, fears Trazodone. Agrees to Clozapine increase at HS, also Melatonin increase. Discussed mom's coming to visit today. Pt will attempt to negotiate with her to return to her home for a brief period of time. Continues to have difficulty with a peer in the milieu, able to follow team direction yet is labile and can escalate quickly. Refuses prn offerings. Later in the day team reports a difficult visit with mother, mother was accusatory of team for not curing pt, she would like to discuss with team and we will be in contact if pt agrees. Pt will not be allowed back in her home, he continues to decline HEALTH SYSTEM referral. Pt continues to report mother takes his SSI check and food stamps every month and will not allow him to remain in the home. Medication Compliance: Yes Side effects from medications: No Attending Groups: Intermittent Review of Systems Acute medical concerns: No Medical Review of Systems: unchanged Review of Systems Review of Systems denies Mental Status Exam Mental Status Exam Patient Appearance: Appropriate Patient Orientation: Person, Place, Time and Situation Level of Consciousness: Alert Patient Behavior: Talkative and Good Eye Contact Mood Description: Labile, Blunted and Angry Affect Description: Labile, Blunted and Angry Patient Cognition Impaired: No Ability to Follow Directions: Good Speech Pattern: Appropriate Memory Description: Episodic Impaired Hallucinations: None Delusions: Not Present Perceptual Disturbances: Depersonalization Thought Process: Distracted Thought Content: positive for Circumstantial and positive for Suicidal Ideation (denies) Depressive Symptoms: Increased Anxiety, Insomnia, Difficulty Sleeping and Low Self Esteem Judgement: Fair Diagnostics Vital Signs (24Hr): Vital Signs - 24 hr 11/06/24 20:00 11/07/24 08:00 Temperature 97.5 F 97.5 F Pulse Rate 118 H 110 H Respiratory Rate 16 16 Blood Pressure 144/81 H 165/88 H Pulse Oximetry 98 98 Oxygen Delivery Method Room Air Room Air BMI result Body Mass Index 24.2 Labs 11/04/24 16:36 11/04/24 16:36 Medications Medications Current Medications Acetaminophen (Acetaminophen 325 Mg Tablet) 650 mg PO Q6H PRN PRN Reason: Headache/Pain, Scale 1-10 Last Admin: 11/07/24 06:16 Dose: 650 mg Al Hydroxide/Mg Hydroxide (Magnesium Hydrox/Alum Hydrox 30 Ml Oral.Susp) 30 ml PO Q6H PRN PRN Reason: Heartburn/Nausea Benzocaine (Throat Lozenge, Medicated Lozenge) 1 lozenge MUCOUS MEM Q2H PRN PRN Reason: Sore Throat Last Admin: 11/07/24 06:17 Dose: 1 lozenge Carbamazepine (Carbamazepine 200 Mg Tablet) 400 mg PO BID [facility] Last Admin: 11/06/24 22:00 Dose: 400 mg Chlorpromazine HCl (Chlorpromazine Hcl 100 Mg Tablet) 100 mg PO QID PRN PRN Reason: agitation Last Admin: 11/07/24 02:13 Dose: 100 mg Clozapine (Clozapine 25 Mg Tablet) 50 mg PO DAILY [facility] Last Admin: 11/06/24 09:03 Dose: 50 mg Clozapine (Clozapine 25 Mg Tablet) 75 mg PO BEDTIME [facility] Last Admin: 11/06/24 22:00 Dose: 75 mg Folic Acid (Folic Acid 1 Mg Tablet) 1 mg PO DAILY [facility] Last Admin: 11/06/24 09:03 Dose: 1 mg Hydroxyzine HCl (Hydroxyzine Hcl 25 Mg Tablet) 25 mg PO Q6H PRN PRN Reason: mild anxiety Last Admin: 11/07/24 02:13 Dose: 25 mg Lisinopril (Lisinopril 20 Mg Tablet) 20 mg PO DAILY [facility]; Protocol Last Admin: 11/06/24 09:04 Dose: Not Given Magnesium Hydroxide (Milk Of Magnesia 30 Ml Oral.Susp) 30 ml PO DAILY PRN PRN Reason: Constipation Melatonin (Melatonin 3 Mg Tablet) 6 mg PO BEDTIME PRN PRN Reason: Insomnia Last Admin: 11/05/24 21:17 Dose: 6 mg Multi-Ingred Medicated Throat [place] (Throat [place], Medicated 177 Ml Bottle) 1 spray MUCOUS MEM Q2H PRN PRN Reason: Sore Throat Multivitamins/Vitamin C (Multivitamin Tablet) 1 tab PO DAILY [facility] Last Admin: 11/06/24 09:03 Dose: 1 tab Nicotine (Nicotine 21 Mg Patch.Td24) 21 mg TRANSDERMA DAILY [facility] Last Admin: 11/06/24 09:08 Dose: Not Given Nicotine Polacrilex (Nicotine Polacrilex Lozenge 4 Mg Lozenge) 4 mg BUCCAL Q2H PRN PRN Reason: Nicotine Cravings Last Admin: 11/07/24 02:13 Dose: 4 mg Senna/Docusate Sodium (Sennosides/Docusate Sodium Tablet) 1 tab PO DAILY [facility] Last Admin: 11/06/24 09:03 Dose: 1 tab Simethicone (Simethicone 80 Mg Tab.Chew) 80 mg PO QIDWMHS PRN PRN Reason: flatulance Thiamine HCl (Thiamine Hcl 100 Mg Tablet) 100 mg PO DAILY [facility] Last Admin: 11/06/24 09:03 Dose: 100 mg Trazodone HCl (Trazodone Hcl 100 Mg Tablet) 100 mg PO BEDTIME [facility] Last Admin: 11/06/24 22:19 Dose: Not Given Allergies Allergies Allergy/AdvReac Type Severity Reaction Status Date / Time haloperidol (From Haldol) AdvReac Severe dystonia Verified 11/01/24 10:09 Assessment & Plan Assessment & Plan (1) Schizoaffective disorder, bipolar type: Status: Acute Code(s): F25.0 - Schizoaffective disorder, bipolar type (2) Acute psychosis: Status: Acute Code(s): F23 - Brief psychotic disorder (3) Suicidal ideations: Status: Acute Code(s): R45.851 - Suicidal ideations (4) Homicidal ideation: Status: Acute Code(s): R45.850 - Homicidal ideations (5) Alcohol use disorder: Status: Acute Code(s): F10.90 - Alcohol use, unspecified, uncomplicated Plan HPI: 29 yo male, to ER with EMS, reporting SI,HI and believes he will be killed. Pt had threatened to kill his mom and suicide by police if she called for help from police. Pt ran from police and [employer]D team. He was found, outside of [employer] yelling with his shirt removed. Pt last at [facility] 09/22/24 to 09/27/24. Pt told team that he was being followed and felt that something was connected to him. Pt was medicine noncompliant prior to admit and exhibited psychotic symptoms in the ER with response to internal stimuli. He discussed concerns with the devil, reports auditory perceptual alterations. He tells team he has been without sleep or food for days. Lives with mother, step father, brother and sister who are concerned for his well being. Mother tells team pt has been doing poorly for ~72 hours-yelling, threatening to kill her and himself. He has been focused on the devil. Pt was kicking the door and yelling today-neighbors called police. Pt admitted to medicine non compliance. Met with pt and Gary DUNCAN. Pt is a poor historian, with confusion, disoorientation, psychosis and posturing. He attempts to place his hair in a pony tail and struggles. He sits with his head down and is non verbal at times. He answers questions with brief answers, at times without making logical sense. He presents with fear when having to talk with others, has been wandering into others rooms and collecting of belongings. Hospital course: 11/04 Patient manic, dancing in the halls, doing karate moves, singing out loud to himself, sometimes intrusive with peers. Patient initially said he would take medication then said he would not take it and refused; said he would get blood draw but then when phlebotomy became refuse saying ... I am not give new my blood... you are going to keep my blood. Later, patient then said he would take Clozaril and Tegretol. Patient difficult with which to engage. -stopped CIWA; not scoring -patient asked for Simethicone -will continue with Clozaril even though patient refusing blood draw; he has history of tolerating clozapine without issue and patient needs medication 11/05 little sleep; remains manic, dancing in hallways; antagonistic to select peers hwoever, pt did take medications (tegretol and clozapine), though it need to be re-offered. Pt came to ad writer and said he'd continue taking the medications -refusing labs -refusing vitals 11/07: Increase Clozapine to 100 mg HS DC Trazodone Increase Melatonin to 9 mg HS Plan: 12B Titrated to Clozaril 50mg daily and 75 mg qhs; (long hx tolerating this med; will monitor for hypotension) Continue Tegretol 400 mg b.i.d. patient manic vitamin replacement Diagnostics as pt will allow. Encourage milieu involvement as pt recovers. Reason for continued inpatient stay Substantial Risk for: rapid decompensation Time Spent With Patient Time: Total time managing care of this patient today ____ minutes.
[2024-11-07] MEDS: Nicotine 21 MG PATCH.TD24 TRANSDERMA (10:10)
--- NOTE | 2024-11-07 18:30 | PC.NURSE ---
PT WAS HEARD YELLING WITH A PEER IN THE HALLWAY TODAY AROUND 1730. PT WAS SEEN AGGRESSIVELY HOLDING A PEER WHILE YELLING AT THE PEER. PT REPORTS PEER APPROACHED HIM, ACCUSING HIM OF RATTING HIM OUT REGARDING A FEMALE PEER. PT WAS ABLE TO DE-ESCALATE WITH STAFF ASSISTANCE. PT AGREED TO TAKE HIS SCHEDULED MEDICATIONS. PT WAS ABLE TO DISCUSS SITUATION WITH STAFF AND PACE THE HALLS. NO FURTHER OUTBURST.
[2024-11-07 20:00] VITALS: BP 146/81; PULSE 119; RESP 16; TEMP 36.2; O2SAT 97
[2024-11-08] MEDS: Throat Lozenge, Medicated LOZENGE 1 LOZENGE MUCOUS MEM ×4 (05:26→21:38)
[2024-11-08] MEDS: Nicotine Polacrilex Lozenge 4 MG LOZENGE BUCCAL ×4 (05:26→20:27)
[2024-11-08 07:53] VITALS: BP 162/97; PULSE 123; RESP 16; TEMP 36.4; O2SAT 97
[2024-11-08] MEDS: Nicotine 21 MG PATCH.TD24 TRANSDERMA (08:06)
[2024-11-08 09:41] VITALS: BP 136/81; PULSE 126
--- NOTE | 2024-11-08 11:55 | P.PNPSI_ITS ---
Subjective Subjective Date of Service: 11/08/24 Reason For Visit: SECTION 12, SI Interim History: Met with patient; discussed with team Patient remains manic, intrusive, hyperverbal and with limited insight. Getting into verbal altercation and near physical with other peer also having manic episode. Team agreed best for patient to transfer to the other floor. Discussed with patient who agrees. Mental Status Exam Mental Status Exam Narrative: Pt is alert and oriented; behavior manic, dancing in the hallways, doing karate moves, cleaning excessively, running; intrusive with peers; patient is not in distress; dressed in hospital attire, shirt on his head, facial hair; mood is described as good and affect expansive; eye contact appropriate; Speech is normal rate, volume and prosody and not pressured; psychomotor agitation present; thought process is goal directed; Thought content with some paranoid delusions; otherwise will not disclose much; did not express SI/HI; patient appears internally preoccupied. Patients insight and judgment impaired Diagnostics Vital Signs (24Hr): Vital Signs - 24 hr 11/07/24 20:00 11/08/24 07:53 11/08/24 09:41 Temperature 97.1 F 97.5 F Pulse Rate 119 H 123 H 126 H Respiratory Rate 16 16 Blood Pressure 146/81 H 162/97 H 136/81 Pulse Oximetry 97 97 Oxygen Delivery Method Room Air Room Air BMI result Body Mass Index 24.2 Labs 11/04/24 16:36 11/04/24 16:36 Medications Medications Current Medications Acetaminophen (Acetaminophen 325 Mg Tablet) 650 mg PO Q6H PRN PRN Reason: Headache/Pain, Scale 1-10 Last Admin: 11/07/24 06:16 Dose: 650 mg Al Hydroxide/Mg Hydroxide (Magnesium Hydrox/Alum Hydrox 30 Ml Oral.Susp) 30 ml PO Q6H PRN PRN Reason: Heartburn/Nausea Benzocaine (Throat Lozenge, Medicated Lozenge) 1 lozenge MUCOUS MEM Q2H PRN PRN Reason: Sore Throat Last Admin: 11/08/24 05:26 Dose: 1 lozenge Carbamazepine (Carbamazepine 200 Mg Tablet) 400 mg PO BID [facility] Last Admin: 11/08/24 08:05 Dose: 400 mg Chlorpromazine HCl (Chlorpromazine Hcl 100 Mg Tablet) 100 mg PO QID PRN PRN Reason: agitation Last Admin: 11/08/24 08:05 Dose: 100 mg Clozapine (Clozapine 25 Mg Tablet) 50 mg PO DAILY [facility] Last Admin: 11/08/24 08:05 Dose: 50 mg Clozapine (Clozapine 100 Mg Tablet) 100 mg PO BEDTIME [facility] Last Admin: 11/07/24 20:11 Dose: 100 mg Folic Acid (Folic Acid 1 Mg Tablet) 1 mg PO DAILY [facility] Last Admin: 11/08/24 08:05 Dose: 1 mg Hydroxyzine HCl (Hydroxyzine Hcl 25 Mg Tablet) 25 mg PO Q6H PRN PRN Reason: mild anxiety Last Admin: 11/07/24 02:13 Dose: 25 mg Lisinopril (Lisinopril 20 Mg Tablet) 20 mg PO DAILY [facility]; Protocol Last Admin: 11/08/24 08:05 Dose: 20 mg Magnesium Hydroxide (Milk Of Magnesia 30 Ml Oral.Susp) 30 ml PO DAILY PRN PRN Reason: Constipation Melatonin (Melatonin 3 Mg Tablet) 9 mg PO BEDTIME PRN PRN Reason: Insomnia Last Admin: 11/07/24 20:11 Dose: 9 mg Multi-Ingred Medicated Throat [place] (Throat [place], Medicated 177 Ml Bottle) 1 spray MUCOUS MEM Q2H PRN PRN Reason: Sore Throat Multivitamins/Vitamin C (Multivitamin Tablet) 1 tab PO DAILY [facility] Last Admin: 11/08/24 08:05 Dose: 1 tab Nicotine (Nicotine 21 Mg Patch.Td24) 21 mg TRANSDERMA DAILY [facility] Last Admin: 11/08/24 08:06 Dose: 21 mg Nicotine Polacrilex (Nicotine Polacrilex Lozenge 4 Mg Lozenge) 4 mg BUCCAL Q2H PRN PRN Reason: Nicotine Cravings Last Admin: 11/08/24 08:05 Dose: 4 mg Senna/Docusate Sodium (Sennosides/Docusate Sodium Tablet) 1 tab PO DAILY [facility] Last Admin: 11/08/24 08:05 Dose: 1 tab Simethicone (Simethicone 80 Mg Tab.Chew) 80 mg PO QIDWMHS PRN PRN Reason: flatulance Thiamine HCl (Thiamine Hcl 100 Mg Tablet) 100 mg PO DAILY [facility] Last Admin: 11/08/24 08:05 Dose: 100 mg Allergies Allergies Allergy/AdvReac Type Severity Reaction Status Date / Time haloperidol (From Haldol) AdvReac Severe dystonia Verified 11/01/24 10:09 Assessment & Plan Assessment & Plan (1) Schizoaffective disorder, bipolar type: Status: Acute Code(s): F25.0 - Schizoaffective disorder, bipolar type (2) Acute psychosis: Status: Acute Code(s): F23 - Brief psychotic disorder (3) Suicidal ideations: Status: Resolved Code(s): R45.851 - Suicidal ideations (4) Homicidal ideation: Status: Resolved Code(s): R45.850 - Homicidal ideations (5) Alcohol use disorder: Status: Acute Code(s): F10.90 - Alcohol use, unspecified, uncomplicated Plan HPI: 29 yo male, to ER with EMS, reporting SI,HI and believes he will be killed. Pt had threatened to kill his mom and suicide by police if she called for help from police. Pt ran from police and CHD team. He was found, outside of [employer] yelling with his shirt removed. Pt last at [facility] 09/22/24 to 09/27/24. Pt told team that he was being followed and felt that something was connected to him. Pt was medicine noncompliant prior to admit and exhibited psychotic symptoms in the ER with response to internal stimuli. He discussed concerns with the devil, reports auditory perceptual alterations. He tells team he has been without sleep or food for days. Lives with mother, step father, brother and sister who are concerned for his well being. Mother tells team pt has been doing poorly for ~72 hours-yelling, threatening to kill her and himself. He has been focused on the devil. Pt was kicking the door and yelling today-neighbors called police. Pt admitted to medicine non compliance. Met with pt and Gary Chen [facility]. Pt is a poor historian, with confusion, disoorientation, psychosis and posturing. He attempts to place his hair in a pony tail and struggles. He sits with his head down and is non verbal at times. He answers questions with brief answers, at times without making logical sense. He presents with fear when having to talk with others, has been wandering into others rooms and collecting of belongings. Hospital course: 11/04 Patient manic, dancing in the halls, doing karate moves, singing out loud to himself, sometimes intrusive with peers. Patient initially said he would take medication then said he would not take it and refused; said he would get blood draw but then when phlebotomy became refuse saying ... I am not give new my blood... you are going to keep my blood. Later, patient then said he would take Clozaril and Tegretol. Patient difficult with which to engage. -stopped CIWA; not scoring -patient asked for Simethicone -will continue with Clozaril even though patient refusing blood draw; he has history of tolerating clozapine without issue and patient needs medication 11/05 little sleep; remains manic, dancing in hallways; antagonistic to select peers hwoever, pt did take medications (tegretol and clozapine), though it need to be re-offered. Pt came to consumer loan underwriter and said he'd continue taking the medications -refusing labs -refusing vitals 11/07: Increase Clozapine to 100 mg HS DC Trazodone Increase Melatonin to 9 mg HS 11/08 Patient remains manic, intrusive, hyperverbal and with limited insight. Due to jazmine, Getting into verbal altercation and near physical with other peer also having manic episode. Team agreed best for patient to transfer to the other floor. Discussed with patient who agrees. Plan: 12B Titrated to Clozaril 50mg daily and 75 mg qhs; (long hx tolerating this med; will monitor for hypotension) Continue Tegretol 400 mg b.i.d. patient manic vitamin replacement Diagnostics as pt will allow. Encourage milieu involvement as pt recovers. Patient educated on: diagnosis and therapeutic strategies Informed Consent: understands, does not understand and further education needed Reason for continued inpatient stay Substantial Risk for: inability to function Time Spent With Patient Time: Total time managing care of this patient today ____ minutes.
--- NOTE | 2024-11-08 12:27 | PC.NURSE ---
Nurse to nurse given to YAHAIRA Alston on M3
--- NOTE | 2024-11-08 12:54 | PC.NURSE ---
11/08/24 Pt was transferred to [facility]3 from . RN to RN done with Candice wyatt RN
[2024-11-08 19:40] VITALS: BP 112/72; PULSE 138; TEMP 36.9; O2SAT 95
[2024-11-08 19:45] VITALS: PULSE 100
[2024-11-09] MEDS: Throat Lozenge, Medicated LOZENGE 1 LOZENGE MUCOUS MEM ×5 (02:23→18:55)
[2024-11-09] MEDS: Nicotine Polacrilex Lozenge 4 MG LOZENGE BUCCAL ×3 (06:35→18:14)
[2024-11-09 07:00] VITALS: BMI 39.8
[2024-11-09 07:38] VITALS: BP 146/70; PULSE 122; RESP 18; TEMP 36.5; O2SAT 97
[2024-11-09] MEDS: Nicotine 21 MG PATCH.TD24 TRANSDERMA (08:33)
--- NOTE | 2024-11-09 12:16 | HO.PSYCHPN ---
Subjective Subjective Date of Service: 11/09/24 Reason For Visit: SECTION 12, SI Interim History: less revved up, apears a little sedated. states he is motivated to take medication to be able to be with his GF. MD agrees to change all clozaril to HS to avoid daytime sedation. pt does report several MNA. per staff, overly bright, poor boundaries, restless, hypersexual, slept about 6 hours. Mental Status Exam Mental Status Exam Narrative: Appearance: dressed in street clothes Behavior: cooperative Psychomotor: somewhat somnolent Speech: spontaneous, incr rate, nml amount Mood: not assessed Affect: full range, normo-intense, non-labile SI: none expressed HI: none expressed AH/VH: none expressed Delusions: none expressed Insight/judgment: improving x 2. Diagnostics Vital Signs (24Hr): Vital Signs - 24 hr 11/08/24 19:40 11/08/24 19:45 11/09/24 07:38 Temperature 98.5 F 97.7 F Pulse Rate 138 H 100 122 H Respiratory Rate 18 Blood Pressure 112/72 146/70 H Pulse Oximetry 95 97 Oxygen Delivery Method Room Air Room Air BMI result Body Mass Index 39.8 Labs 11/04/24 16:36 11/04/24 16:36 Medications Medications Current Medications Acetaminophen (Acetaminophen 325 Mg Tablet) 650 mg PO Q6H PRN PRN Reason: Headache/Pain, Scale 1-10 Last Admin: 11/09/24 10:30 Dose: 650 mg Al Hydroxide/Mg Hydroxide (Magnesium Hydrox/Alum Hydrox 30 Ml Oral.Susp) 30 ml PO Q6H PRN PRN Reason: Heartburn/Nausea Benzocaine (Throat Lozenge, Medicated Lozenge) 1 lozenge MUCOUS MEM Q2H PRN PRN Reason: Sore Throat Last Admin: 11/09/24 10:30 Dose: 1 lozenge Carbamazepine (Carbamazepine 200 Mg Tablet) 400 mg PO BID FANNIE Last Admin: 11/09/24 08:31 Dose: 400 mg Chlorpromazine HCl (Chlorpromazine Hcl 100 Mg Tablet) 100 mg PO QID PRN PRN Reason: agitation Last Admin: 11/08/24 08:05 Dose: 100 mg Clozapine (Clozapine 100 Mg Tablet) 100 mg PO ONCE ONE Stop: 11/09/24 21:01 Clozapine (Clozapine 25 Mg Tablet) 150 mg PO BEDTIME [facility] Docusate Sodium (Docusate Sodium 100 Mg Capsule) 100 mg PO BID [facility] Last Admin: 11/09/24 08:30 Dose: 100 mg Folic Acid (Folic Acid 1 Mg Tablet) 1 mg PO DAILY [facility] Last Admin: 11/09/24 08:29 Dose: 1 mg Hydroxyzine HCl (Hydroxyzine Hcl 25 Mg Tablet) 25 mg PO Q6H PRN PRN Reason: mild anxiety Last Admin: 11/07/24 02:13 Dose: 25 mg Lisinopril (Lisinopril 20 Mg Tablet) 20 mg PO DAILY [facility]; Protocol Last Admin: 11/09/24 08:28 Dose: 20 mg Magnesium Hydroxide (Milk Of Magnesia 30 Ml Oral.Susp) 30 ml PO DAILY PRN PRN Reason: Constipation Melatonin (Melatonin 3 Mg Tablet) 9 mg PO BEDTIME PRN PRN Reason: Insomnia Last Admin: 11/08/24 21:34 Dose: 9 mg Multi-Ingred Medicated Throat [place] (Throat [place], Medicated 177 Ml Bottle) 1 spray MUCOUS MEM Q2H PRN PRN Reason: Sore Throat Multivitamins/Vitamin C (Multivitamin Tablet) 1 tab PO DAILY [facility] Last Admin: 11/09/24 08:28 Dose: 1 tab Nicotine (Nicotine 21 Mg Patch.Td24) 21 mg TRANSDERMA DAILY [facility] Last Admin: 11/09/24 08:33 Dose: 21 mg Nicotine Polacrilex (Nicotine Polacrilex Lozenge 4 Mg Lozenge) 4 mg BUCCAL Q2H PRN PRN Reason: Nicotine Cravings Last Admin: 11/09/24 06:35 Dose: 4 mg Senna/Docusate Sodium (Sennosides/Docusate Sodium Tablet) 1 tab PO DAILY [facility] Last Admin: 11/09/24 08:29 Dose: 1 tab Simethicone (Simethicone 80 Mg Tab.Chew) 80 mg PO QIDWMHS PRN PRN Reason: flatulance Thiamine HCl (Thiamine Hcl 100 Mg Tablet) 100 mg PO DAILY [facility] Last Admin: 11/09/24 08:29 Dose: 100 mg Allergies Allergies Allergy/AdvReac Type Severity Reaction Status Date / Time haloperidol (From Haldol) AdvReac Severe dystonia Verified 11/01/24 10:09 Assessment & Plan Assessment & Plan (1) Schizoaffective disorder, bipolar type: Status: Acute Code(s): F25.0 - Schizoaffective disorder, bipolar type (2) Acute psychosis: Status: Acute Code(s): F23 - Brief psychotic disorder (3) Suicidal ideations: Status: Resolved Code(s): R45.851 - Suicidal ideations (4) Homicidal ideation: Status: Resolved Code(s): R45.850 - Homicidal ideations (5) Alcohol use disorder: Status: Acute Code(s): F10.90 - Alcohol use, unspecified, uncomplicated Plan HPI: 29 yo male, to ER with EMS, reporting SI,HI and believes he will be killed. Pt had threatened to kill his mom and suicide by police if she called for help from police. Pt ran from police and CHD team. He was found, outside of [employer] yelling with his shirt removed. Pt last at [facility] 09/22/24 to 09/27/24. Pt told team that he was being followed and felt that something was connected to him. Pt was medicine noncompliant prior to admit and exhibited psychotic symptoms in the ER with response to internal stimuli. He discussed concerns with the devil, reports auditory perceptual alterations. He tells team he has been without sleep or food for days. Lives with mother, step father, brother and sister who are concerned for his well being. Mother tells team pt has been doing poorly for ~72 hours-yelling, threatening to kill her and himself. He has been focused on the devil. Pt was kicking the door and yelling today-neighbors called police. Pt admitted to medicine non compliance. Met with pt and Gary DUNCAN. Pt is a poor historian, with confusion, disoorientation, psychosis and posturing. He attempts to place his hair in a pony tail and struggles. He sits with his head down and is non verbal at times. He answers questions with brief answers, at times without making logical sense. He presents with fear when having to talk with others, has been wandering into others rooms and collecting of belongings. Hospital course: 11/04 Patient manic, dancing in the halls, doing karate moves, singing out loud to himself, sometimes intrusive with peers. Patient initially said he would take medication then said he would not take it and refused; said he would get blood draw but then when phlebotomy became refuse saying ... I am not give new my blood... you are going to keep my blood. Later, patient then said he would take Clozaril and Tegretol. Patient difficult with which to engage. -stopped CIWA; not scoring -patient asked for Simethicone -will continue with Clozaril even though patient refusing blood draw; he has history of tolerating clozapine without issue and patient needs medication 11/05 little sleep; remains manic, dancing in hallways; antagonistic to select peers hwoever, pt did take medications (tegretol and clozapine), though it need to be re-offered. Pt came to lyric writer and said he'd continue taking the medications -refusing labs -refusing vitals 11/07: Increase Clozapine to 100 mg HS DC Trazodone Increase Melatonin to 9 mg HS 11/08 Patient remains manic, intrusive, hyperverbal and with limited insight. Due to jazmine, Getting into verbal altercation and near physical with other peer also having manic episode. Team agreed best for patient to transfer to the other floor. Discussed with patient who agrees. 11/09: somewhat sedated today, jazmine trying to push through but having a hard time. move all clozapine to HS to reduce daytime sedation. otherwise continue current mgmt. Plan: 12B Titrated to Clozaril 50mg daily and 75 mg qhs; (long hx tolerating this med; will monitor for hypotension) Continue Tegretol 400 mg b.i.d. patient manic vitamin replacement Diagnostics as pt will allow. Encourage milieu involvement as pt recovers. Reason for continued inpatient stay Substantial Risk for: harm to self, harm to others, inability to function and rapid decompensation Time Spent With Patient Time: Total time managing care of this patient today __25__ minutes.
[2024-11-09 20:00] VITALS: BP 135/67; PULSE 133; RESP 18; TEMP 36.4; O2SAT 94
[2024-11-10] MEDS: Nicotine Polacrilex Lozenge 4 MG LOZENGE BUCCAL ×3 (03:44→15:27)
[2024-11-10] MEDS: Throat Lozenge, Medicated LOZENGE 1 LOZENGE MUCOUS MEM ×6 (03:44→22:53)
[2024-11-10 07:10] VITALS: BP 133/73; PULSE 126; RESP 16; TEMP 36.3; O2SAT 96
[2024-11-10 08:33] LABS: Neut%MD 77.8 %; WBCANC 13.9 X10*3/uL
[2024-11-10] MEDS: Nicotine 21 MG PATCH.TD24 TRANSDERMA (08:39)
--- NOTE | 2024-11-10 14:32 | HO.PSYCHPN ---
Subjective Subjective Date of Service: 11/10/24 Reason For Visit: SECTION 12, SI Interim History: somnolent but rousable. states he is feeling quite well. asking when he will be discharging. woke up a few times overnight. med regimen reviewed. per staff, taking meds. calm. less labile days, more labile eves. apparently RIS but denies. slept about 5 hours. Mental Status Exam Mental Status Exam Narrative: Appearance: dressed in street clothes Behavior: cooperative Psychomotor: somewhat somnolent Speech: spontaneous, nml rate, incr amount Mood: very well Affect: full range, normo-intense, non-labile SI: none expressed HI: none expressed AH/VH: none expressed Delusions: none expressed Insight/judgment: improving x 2. Diagnostics Vital Signs (24Hr): Vital Signs - 24 hr 11/09/24 20:00 11/10/24 07:10 Temperature 97.5 F 97.4 F Pulse Rate 133 H 126 H Respiratory Rate 18 16 Blood Pressure 135/67 133/73 Pulse Oximetry 94 96 Oxygen Delivery Method Room Air Room Air BMI result Body Mass Index 39.8 Labs 11/04/24 16:36 11/04/24 16:36 Labs: Laboratory Results - last 48 hr 11/10/24 08:13 Absolute Neuts (auto) 10.8 H Medications Medications Current Medications Acetaminophen (Acetaminophen 325 Mg Tablet) 650 mg PO Q6H PRN PRN Reason: Headache/Pain, Scale 1-10 Last Admin: 11/09/24 10:30 Dose: 650 mg Al Hydroxide/Mg Hydroxide (Magnesium Hydrox/Alum Hydrox 30 Ml Oral.Susp) 30 ml PO Q6H PRN PRN Reason: Heartburn/Nausea Amoxicillin/Clavulanate Potassium (Amoxicillin/Potassium Clav 875 Mg Tablet) 875 mg PO Q12H FANNIE Last Admin: 11/10/24 10:59 Dose: 875 mg Benzocaine (Throat Lozenge, Medicated Lozenge) 1 lozenge MUCOUS MEM Q2H PRN PRN Reason: Sore Throat Last Admin: 11/10/24 12:26 Dose: 1 lozenge Carbamazepine (Carbamazepine 200 Mg Tablet) 400 mg PO BID [facility] Last Admin: 11/10/24 08:41 Dose: 400 mg Chlorpromazine HCl (Chlorpromazine Hcl 100 Mg Tablet) 100 mg PO QID PRN PRN Reason: agitation Last Admin: 11/08/24 08:05 Dose: 100 mg Clozapine (Clozapine 25 Mg Tablet) 150 mg PO BEDTIME [facility] Docusate Sodium (Docusate Sodium 100 Mg Capsule) 100 mg PO BID [facility] Last Admin: 11/10/24 08:41 Dose: 100 mg Folic Acid (Folic Acid 1 Mg Tablet) 1 mg PO DAILY [facility] Last Admin: 11/10/24 08:42 Dose: 1 mg Hydroxyzine HCl (Hydroxyzine Hcl 25 Mg Tablet) 25 mg PO Q6H PRN PRN Reason: mild anxiety Last Admin: 11/07/24 02:13 Dose: 25 mg Lisinopril (Lisinopril 20 Mg Tablet) 20 mg PO DAILY [facility]; Protocol Last Admin: 11/10/24 08:42 Dose: 20 mg Magnesium Hydroxide (Milk Of Magnesia 30 Ml Oral.Susp) 30 ml PO DAILY PRN PRN Reason: Constipation Melatonin (Melatonin 3 Mg Tablet) 9 mg PO BEDTIME PRN PRN Reason: Insomnia Last Admin: 11/09/24 20:39 Dose: 9 mg Multi-Ingred Medicated Throat [place] (Throat [place], Medicated 177 Ml Bottle) 1 spray MUCOUS MEM Q2H PRN PRN Reason: Sore Throat Multivitamins/Vitamin C (Multivitamin Tablet) 1 tab PO DAILY [facility] Last Admin: 11/10/24 08:42 Dose: 1 tab Nicotine (Nicotine 21 Mg Patch.Td24) 21 mg TRANSDERMA DAILY [facility] Last Admin: 11/10/24 08:39 Dose: 21 mg Nicotine Polacrilex (Nicotine Polacrilex Lozenge 4 Mg Lozenge) 4 mg BUCCAL Q2H PRN PRN Reason: Nicotine Cravings Last Admin: 11/10/24 08:45 Dose: 4 mg Senna/Docusate Sodium (Sennosides/Docusate Sodium Tablet) 1 tab PO DAILY [facility] Last Admin: 11/10/24 08:41 Dose: 1 tab Simethicone (Simethicone 80 Mg Tab.Chew) 80 mg PO QIDWMHS PRN PRN Reason: flatulance Thiamine HCl (Thiamine Hcl 100 Mg Tablet) 100 mg PO DAILY [facility] Last Admin: 11/10/24 08:42 Dose: 100 mg Allergies Allergies Allergy/AdvReac Type Severity Reaction Status Date / Time haloperidol (From Haldol) AdvReac Severe dystonia Verified 11/01/24 10:09 Assessment & Plan Assessment & Plan (1) Schizoaffective disorder, bipolar type: Status: Acute Code(s): F25.0 - Schizoaffective disorder, bipolar type (2) Acute psychosis: Status: Acute Code(s): F23 - Brief psychotic disorder (3) Suicidal ideations: Status: Resolved Code(s): R45.851 - Suicidal ideations (4) Homicidal ideation: Status: Resolved Code(s): R45.850 - Homicidal ideations (5) Alcohol use disorder: Status: Acute Code(s): F10.90 - Alcohol use, unspecified, uncomplicated Plan HPI: 29 yo male, to ER with EMS, reporting SI,HI and believes he will be killed. Pt had threatened to kill his mom and suicide by police if she called for help from police. Pt ran from police and CHD team. He was found, outside of [email or web address] yelling with his shirt removed. Pt last at [facility] 09/22/24 to 09/27/24. Pt told team that he was being followed and felt that something was connected to him. Pt was medicine noncompliant prior to admit and exhibited psychotic symptoms in the ER with response to internal stimuli. He discussed concerns with the devil, reports auditory perceptual alterations. He tells team he has been without sleep or food for days. Lives with mother, step father, brother and sister who are concerned for his well being. Mother tells team pt has been doing poorly for ~72 hours-yelling, threatening to kill her and himself. He has been focused on the devil. Pt was kicking the door and yelling today-neighbors called police. Pt admitted to medicine non compliance. Met with pt and Gary DUNCAN. Pt is a poor historian, with confusion, disoorientation, psychosis and posturing. He attempts to place his hair in a pony tail and struggles. He sits with his head down and is non verbal at times. He answers questions with brief answers, at times without making logical sense. He presents with fear when having to talk with others, has been wandering into others rooms and collecting of belongings. Hospital course: 11/04 Patient manic, dancing in the halls, doing karate moves, singing out loud to himself, sometimes intrusive with peers. Patient initially said he would take medication then said he would not take it and refused; said he would get blood draw but then when phlebotomy became refuse saying ... I am not give new my blood... you are going to keep my blood. Later, patient then said he would take Clozaril and Tegretol. Patient difficult with which to engage. -stopped CIWA; not scoring -patient asked for Simethicone -will continue with Clozaril even though patient refusing blood draw; he has history of tolerating clozapine without issue and patient needs medication 11/05 little sleep; remains manic, dancing in hallways; antagonistic to select peers hwoever, pt did take medications (tegretol and clozapine), though it need to be re-offered. Pt came to investigative writer and said he'd continue taking the medications -refusing labs -refusing vitals 11/07: Increase Clozapine to 100 mg HS DC Trazodone Increase Melatonin to 9 mg HS 11/08 Patient remains manic, intrusive, hyperverbal and with limited insight. Due to jazmine, Getting into verbal altercation and near physical with other peer also having manic episode. Team agreed best for patient to transfer to the other floor. Discussed with patient who agrees. 11/09: somewhat sedated today, jazmine trying to push through but having a hard time. move all clozapine to HS to reduce daytime sedation. otherwise continue current mgmt. 11/10: sobia gets clozapine 150 at HS (had none this morning). otherwise continue prior mgmt. continues to appear sedated in the morning, but behavior in good control. Plan: 12B Titrated to Clozaril 50mg daily and 75 mg qhs; (long hx tolerating this med; will monitor for hypotension) Continue Tegretol 400 mg b.i.d. patient manic vitamin replacement Diagnostics as pt will allow. Encourage milieu involvement as pt recovers. Reason for continued inpatient stay Substantial Risk for: inability to function and rapid decompensation Time Spent With Patient Time: Total time managing care of this patient today __25__ minutes.
[2024-11-10 19:18] VITALS: BP 130/78; PULSE 125; RESP 16; TEMP 36.6; O2SAT 97
[2024-11-11] MEDS: Nicotine Polacrilex Lozenge 4 MG LOZENGE BUCCAL ×4 (06:12→20:32)
[2024-11-11] MEDS: Throat Lozenge, Medicated LOZENGE 1 LOZENGE MUCOUS MEM ×4 (06:52→21:57)
[2024-11-11 08:00] VITALS: BP 156/80; PULSE 119; RESP 18; TEMP 36.4; O2SAT 97
--- NOTE | 2024-11-11 08:48 | P.PNPSI_ITS ---
Subjective Subjective Date of Service: 11/11/24 Reason For Visit: SECTION 12, SI Subjective Notes: Conditional Voluntary Healthcare Proxy: No Guardianship: No Medical Problems Affecting Mental Status: No Interim History: Medical record and nursing notes reviewed; case discussed during rounds with team/nursing staff, and met with patient for supportive therapy/psychoeducation, as well as medication management. No issues with sleep or appetite. No constipated. Compliant with meds. Denies side effects. Took Melatonin PRN last night with good effect after waking up for snack. Attended groups, listen to music as coping skills. He reports no issues with any peers on the unit and no one bother him. Denies safety concerns or hallucinations. Medication Compliance: Yes Side effects from medications: No Attending Groups: No Review of Systems Acute medical concerns: No Medical Review of Systems: unchanged Review of Systems Review of Systems denies Yes all other systems are reviewed and are negative Mental Status Exam Mental Status Exam Narrative: Appearance: dressed in street clothes Behavior: cooperative Psychomotor: somewhat somnolent Speech: spontaneous, nml rate, incr amount Mood: very well Affect: full range, normo-intense, non-labile SI: none expressed HI: none expressed AH/VH: none expressed Delusions: none expressed Insight/judgment: improving x 2. Diagnostics Vital Signs (24Hr): Vital Signs - 24 hr 11/10/24 19:18 11/11/24 08:00 Temperature 97.8 F 97.6 F Pulse Rate 125 H 119 H Respiratory Rate 16 18 Blood Pressure 130/78 156/80 H Pulse Oximetry 97 97 Oxygen Delivery Method Room Air Room Air BMI result Body Mass Index 39.8 Labs 11/04/24 16:36 11/04/24 16:36 Labs: Laboratory Results - last 48 hr 11/10/24 08:13 Absolute Neuts (auto) 10.8 H Medications Medications Current Medications Acetaminophen (Acetaminophen 325 Mg Tablet) 650 mg PO Q6H PRN PRN Reason: Headache/Pain, Scale 1-10 Last Admin: 11/11/24 06:52 Dose: 650 mg Al Hydroxide/Mg Hydroxide (Magnesium Hydrox/Alum Hydrox 30 Ml Oral.Susp) 30 ml PO Q6H PRN PRN Reason: Heartburn/Nausea Amoxicillin/Clavulanate Potassium (Amoxicillin/Potassium Clav 875 Mg Tablet) 875 mg PO Q12H [facility] Last Admin: 11/10/24 22:33 Dose: 875 mg Benzocaine (Throat Lozenge, Medicated Lozenge) 1 lozenge MUCOUS MEM Q2H PRN PRN Reason: Sore Throat Last Admin: 11/11/24 06:52 Dose: 1 lozenge Carbamazepine (Carbamazepine 200 Mg Tablet) 400 mg PO BID [facility] Last Admin: 11/10/24 22:33 Dose: 400 mg Chlorpromazine HCl (Chlorpromazine Hcl 100 Mg Tablet) 100 mg PO QID PRN PRN Reason: agitation Last Admin: 11/08/24 08:05 Dose: 100 mg Clozapine (Clozapine 100 Mg Tablet) 150 mg PO BEDTIME [facility] Last Admin: 11/10/24 22:35 Dose: 150 mg Docusate Sodium (Docusate Sodium 100 Mg Capsule) 100 mg PO BID [facility] Last Admin: 11/10/24 22:33 Dose: 100 mg Folic Acid (Folic Acid 1 Mg Tablet) 1 mg PO DAILY [facility] Last Admin: 11/10/24 08:42 Dose: 1 mg Hydroxyzine HCl (Hydroxyzine Hcl 25 Mg Tablet) 25 mg PO Q6H PRN PRN Reason: mild anxiety Last Admin: 11/07/24 02:13 Dose: 25 mg Lisinopril (Lisinopril 20 Mg Tablet) 20 mg PO DAILY [facility]; Protocol Last Admin: 11/10/24 08:42 Dose: 20 mg Magnesium Hydroxide (Milk Of Magnesia 30 Ml Oral.Susp) 30 ml PO DAILY PRN PRN Reason: Constipation Melatonin (Melatonin 3 Mg Tablet) 9 mg PO BEDTIME PRN PRN Reason: Insomnia Last Admin: 11/10/24 22:33 Dose: 9 mg Multi-Ingred Medicated Throat [place] (Throat [place], Medicated 177 Ml Bottle) 1 spray MUCOUS MEM Q2H PRN PRN Reason: Sore Throat Multivitamins/Vitamin C (Multivitamin Tablet) 1 tab PO DAILY [facility] Last Admin: 11/10/24 08:42 Dose: 1 tab Nicotine (Nicotine 21 Mg Patch.Td24) 21 mg TRANSDERMA DAILY [facility] Last Admin: 11/10/24 08:39 Dose: 21 mg Nicotine Polacrilex (Nicotine Polacrilex Lozenge 4 Mg Lozenge) 4 mg BUCCAL Q2H PRN PRN Reason: Nicotine Cravings Last Admin: 11/11/24 06:12 Dose: 4 mg Senna/Docusate Sodium (Sennosides/Docusate Sodium Tablet) 1 tab PO DAILY [facility] Last Admin: 11/10/24 08:41 Dose: 1 tab Simethicone (Simethicone 80 Mg Tab.Chew) 80 mg PO QIDWMHS PRN PRN Reason: flatulance Thiamine HCl (Thiamine Hcl 100 Mg Tablet) 100 mg PO DAILY [facility] Last Admin: 11/10/24 08:42 Dose: 100 mg Allergies Allergies Allergy/AdvReac Type Severity Reaction Status Date / Time haloperidol (From Haldol) AdvReac Severe dystonia Verified 11/01/24 10:09 Assessment & Plan Assessment & Plan (1) Schizoaffective disorder, bipolar type: Status: Acute Code(s): F25.0 - Schizoaffective disorder, bipolar type (2) Acute psychosis: Status: Acute Code(s): F23 - Brief psychotic disorder (3) Suicidal ideations: Status: Resolved Code(s): R45.851 - Suicidal ideations (4) Homicidal ideation: Status: Resolved Code(s): R45.850 - Homicidal ideations (5) Alcohol use disorder: Status: Acute Code(s): F10.90 - Alcohol use, unspecified, uncomplicated Plan HPI: 29 yo male, to ER with EMS, reporting SI,HI and believes he will be killed. Pt had threatened to kill his mom and suicide by police if she called for help from police. Pt ran from police and [employer] team. He was found, outside of [employer] yelling with his shirt removed. Pt last at [facility] [place] 09/22/24 to 09/27/24. Pt told team that he was being followed and felt that something was connected to him. Pt was medicine noncompliant prior to admit and exhibited psychotic symptoms in the ER with response to internal stimuli. He discussed concerns with the devil, reports auditory perceptual alterations. He tells team he has been without sleep or food for days. Lives with mother, step father, brother and sister who are concerned for his well being. Mother tells team pt has been doing poorly for ~72 hours-yelling, threatening to kill her and himself. He has been focused on the devil. Pt was kicking the door and yelling today-neighbors called police. Pt admitted to medicine non compliance. Met with pt and Gary DUNCAN. Pt is a poor historian, with confusion, disoorientation, psychosis and posturing. He attempts to place his hair in a pony tail and struggles. He sits with his head down and is non verbal at times. He answers questions with brief answers, at times without making logical sense. He presents with fear when having to talk with others, has been wandering into others rooms and collecting of belongings. Hospital course: 11/04 Patient manic, dancing in the halls, doing karate moves, singing out loud to himself, sometimes intrusive with peers. Patient initially said he would take medication then said he would not take it and refused; said he would get blood draw but then when phlebotomy became refuse saying ... I am not give new my blood... you are going to keep my blood. Later, patient then said he would take Clozaril and Tegretol. Patient difficult with which to engage. -stopped CIWA; not scoring -patient asked for Simethicone -will continue with Clozaril even though patient refusing blood draw; he has history of tolerating clozapine without issue and patient needs medication 11/05 little sleep; remains manic, dancing in hallways; antagonistic to select peers hwoever, pt did take medications (tegretol and clozapine), though it need to be re-offered. 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 Due to jazmine, Getting into verbal altercation and near physical with other peer also having manic episode. Team agreed best for patient to transfer to the other floor. Discussed with patient who agrees. 11/09: somewhat sedated today, jazmine trying to push through but having a hard time. move all clozapine to HS to reduce daytime sedation. otherwise continue current mgmt. 11/10: sobia gets clozapine 150 at HS (had none this morning). otherwise continue prior mgmt. continues to appear sedated in the morning, but behavior in good control. 11/11/24: No issues with sleep or appetite. No constipated. Compliant with meds. Denies side effects. Took Melatonin PRN last night with good effect after waking up for snack. Attended groups, listen to music as coping skills. He reports no issues with any peers on the unit and no one bother him. Denies safety concerns or hallucinations.No changes. Continue with current tx plan. Plan: CV -15 min safety check. Titrated to Clozaril 150mg at HS; (long hx tolerating this med; will monitor for hypotension) Continue Tegretol 400 mg b.i.d. patient manic: improving Continue with antibiotic vitamin replacement Diagnostics as pt will allow. Encourage milieu involvement as pt recovers. Patient educated on: diagnosis, medication risk/benefits and therapeutic strategies Informed Consent: understands and further education needed Reason for continued inpatient stay Substantial Risk for: med/psych decompensation Time Spent With Patient Time: Total time managing care of this patient today ____ minutes.
[2024-11-11] MEDS: Nicotine 21 MG PATCH.TD24 TRANSDERMA (09:00)
[2024-11-11 09:02] VITALS: BP 156/80
[2024-11-11 19:46] VITALS: BP 151/85; PULSE 122; RESP 16; TEMP 36.5; O2SAT 95
[2024-11-12] MEDS: Throat Lozenge, Medicated LOZENGE 1 LOZENGE MUCOUS MEM ×3 (05:18→13:44)
[2024-11-12] MEDS: Nicotine Polacrilex Lozenge 4 MG LOZENGE BUCCAL ×4 (07:06→22:41)
[2024-11-12 08:00] VITALS: BP 147/78; PULSE 114; RESP 18; TEMP 36.7; O2SAT 95
[2024-11-12] MEDS: Nicotine 21 MG PATCH.TD24 TRANSDERMA (08:31)
[2024-11-12 20:00] VITALS: BP 136/73; PULSE 110; RESP 16; TEMP 36.4; O2SAT 95
[2024-11-12 22:13] LABS: Carbamazepine Tegretol 10.9 mcg/mL (5.0-12.0)
[2024-11-12 22:22] LABS: Alanine Aminotransferase 51 U/L (0-40); Albumin Level 4.1 g/dL (3.5-5.0); Alkaline Phosphatase 90 U/L (39-117); Anion Gap 16 (12-20); Aspartate Amino Transferase 34 U/L (5-37); Blood Urea Nitrogen 11 mg/dL (9-16); Calcium 9.2 mg/dL (8.4-10.2); Carbon Dioxide 25 mmol/L (22-29); Chloride 104 mmol/L (96-108); Creatinine Clr Calc Pharmacy 147.7; Estimated Glomerular Filt Rate > 60; Potassium 4.6 mmol/L (3.3-5.1); Sodium 140 mmol/L (135-145); Total Protein 7.6 g/dL (6.5-8.0)
--- NOTE | 2024-11-12 22:36 | P.PNPSI_ITS ---
Subjective Subjective Date of Service: 11/12/24 Reason For Visit: SECTION 12, SI Subjective Notes: 3 Day Healthcare Proxy: No Guardianship: No Medical Problems Affecting Mental Status: No Interim History: Medical record and nursing notes reviewed; case discussed during rounds with team/nursing staff, and met with patient for supportive therapy/psychoeducation, as well as medication management. Patient slept for 7 hours, compliant with medications, organized, calm, pleasant, and cooperative, denies voices, denies safety concerns, visible, attending groups. No behavior issues. Patient is make aware that he will have labs work in the evening. Patient signed 3 day notice yesterday which will be on Wednesday. He would like to return home mom. He agrees to have melatonin scheduled instead of p.r.n. as he take it nightly Medication Compliance: Yes Side effects from medications: No Attending Groups: Yes Review of Systems Acute medical concerns: No Medical Review of Systems: unchanged Review of Systems Review of Systems denies Yes all other systems are reviewed and are negative Mental Status Exam Mental Status Exam Narrative: Appearance: dressed in street clothes Behavior: cooperative Psychomotor: WNL Speech: spontaneous, nml rate, Mood: very well Affect: full range, normo-intense, non-labile SI: none expressed HI: none expressed AH/VH: none expressed Delusions: none expressed Insight/judgment: improving x 2. Diagnostics Vital Signs (24Hr): Vital Signs - 24 hr 11/12/24 08:00 Temperature 98.0 F Pulse Rate 114 H Respiratory Rate 18 Blood Pressure 147/78 H Pulse Oximetry 95 Oxygen Delivery Method Room Air BMI result Body Mass Index 39.8 Labs 11/04/24 16:36 11/12/24 21:45 Labs: Laboratory Results - last 48 hr 11/12/24 21:45 Sodium 140 Potassium 4.6 Chloride 104 Carbon Dioxide 25 Anion Gap 16 BUN 11 Creatinine 0.85 Estim Creat Clear Calc 147.7 Estimated GFR > 60 Random Glucose 123 H Calcium 9.2 D Total Bilirubin 0.1 Direct Bilirubin < 0.2 AST 34 ALT 51 H Alkaline Phosphatase 90 Total Protein 7.6 Albumin 4.1 Carbamazepine 10.9 Medications Medications Current Medications Acetaminophen (Acetaminophen 325 Mg Tablet) 650 mg PO Q6H PRN PRN Reason: Headache/Pain, Scale 1-10 Last Admin: 11/11/24 06:52 Dose: 650 mg Al Hydroxide/Mg Hydroxide (Magnesium Hydrox/Alum Hydrox 30 Ml Oral.Susp) 30 ml PO Q6H PRN PRN Reason: Heartburn/Nausea Amoxicillin/Clavulanate Potassium (Amoxicillin/Potassium Clav 875 Mg Tablet) 875 mg PO Q12H [facility] Last Admin: 11/12/24 11:04 Dose: 875 mg Benzocaine (Throat Lozenge, Medicated Lozenge) 1 lozenge MUCOUS MEM Q2H PRN PRN Reason: Sore Throat Last Admin: 11/12/24 13:44 Dose: 1 lozenge Carbamazepine (Carbamazepine 200 Mg Tablet) 400 mg PO BID [facility] Last Admin: 11/12/24 08:33 Dose: 400 mg Chlorpromazine HCl (Chlorpromazine Hcl 100 Mg Tablet) 100 mg PO QID PRN PRN Reason: agitation Last Admin: 11/08/24 08:05 Dose: 100 mg Clozapine (Clozapine 100 Mg Tablet) 150 mg PO BEDTIME [facility] Last Admin: 11/11/24 21:56 Dose: 150 mg Docusate Sodium (Docusate Sodium 100 Mg Capsule) 100 mg PO BID [facility] Last Admin: 11/12/24 08:33 Dose: 100 mg Folic Acid (Folic Acid 1 Mg Tablet) 1 mg PO DAILY [facility] Last Admin: 11/12/24 08:33 Dose: 1 mg Hydroxyzine HCl (Hydroxyzine Hcl 25 Mg Tablet) 25 mg PO Q6H PRN PRN Reason: mild anxiety Last Admin: 11/07/24 02:13 Dose: 25 mg Lisinopril (Lisinopril 20 Mg Tablet) 20 mg PO DAILY [facility]; Protocol Last Admin: 11/12/24 08:32 Dose: 20 mg Magnesium Hydroxide (Milk Of Magnesia 30 Ml Oral.Susp) 30 ml PO DAILY PRN PRN Reason: Constipation Melatonin (Melatonin 3 Mg Tablet) 9 mg PO BEDTIME [facility] Multi-Ingred Medicated Throat [place] (Throat [place], Medicated 177 Ml Bottle) 1 spray MUCOUS MEM Q2H PRN PRN Reason: Sore Throat Multivitamins/Vitamin C (Multivitamin Tablet) 1 tab PO DAILY [facility] Last Admin: 11/12/24 08:33 Dose: 1 tab Nicotine (Nicotine 21 Mg Patch.Td24) 21 mg TRANSDERMA DAILY [facility] Last Admin: 11/12/24 08:31 Dose: 21 mg Nicotine Polacrilex (Nicotine Polacrilex Lozenge 4 Mg Lozenge) 4 mg BUCCAL Q2H PRN PRN Reason: Nicotine Cravings Last Admin: 11/12/24 13:44 Dose: 4 mg Senna/Docusate Sodium (Sennosides/Docusate Sodium Tablet) 1 tab PO DAILY [facility] Last Admin: 11/12/24 08:32 Dose: 1 tab Simethicone (Simethicone 80 Mg Tab.Chew) 80 mg PO QIDWMHS PRN PRN Reason: flatulance Thiamine HCl (Thiamine Hcl 100 Mg Tablet) 100 mg PO DAILY [facility] Last Admin: 11/12/24 08:32 Dose: 100 mg Allergies Allergies Allergy/AdvReac Type Severity Reaction Status Date / Time haloperidol (From Haldol) AdvReac Severe dystonia Verified 11/01/24 10:09 Assessment & Plan Assessment & Plan (1) Schizoaffective disorder, bipolar type: Status: Acute Code(s): F25.0 - Schizoaffective disorder, bipolar type (2) Acute psychosis: Status: Acute Code(s): F23 - Brief psychotic disorder (3) Suicidal ideations: Status: Resolved Code(s): R45.851 - Suicidal ideations (4) Homicidal ideation: Status: Resolved Code(s): R45.850 - Homicidal ideations (5) Alcohol use disorder: Status: Acute Code(s): F10.90 - Alcohol use, unspecified, uncomplicated Plan HPI: 29 yo male, to ER with EMS, reporting SI,HI and believes he will be killed. Pt had threatened to kill his mom and suicide by police if she called for help from police. Pt ran from police and CHD team. He was found, outside of [facility] yelling with his shirt removed. Pt last at [facility] 09/22/24 to 09/27/24. Pt told team that he was being followed and felt that something was connected to him. Pt was medicine noncompliant prior to admit and exhibited psychotic symptoms in the ER with response to internal stimuli. He discussed concerns with the devil, reports auditory perceptual alterations. He tells team he has been without sleep or food for days. Lives with mother, step father, brother and sister who are concerned for his well being. Mother tells team pt has been doing poorly for ~72 hours-yelling, threatening to kill her and himself. He has been focused on the devil. Pt was kicking the door and yelling today-neighbors called police. Pt admitted to medicine non compliance. Met with pt and Gary DUNCAN. Pt is a poor historian, with confusion, disoorientation, psychosis and posturing. He attempts to place his hair in a pony tail and struggles. He sits with his head down and is non verbal at times. He answers questions with brief answers, at times without making logical sense. He presents with fear when having to talk with others, has been wandering into others rooms and collecting of belongings. Hospital course: 11/04 Patient manic, dancing in the halls, doing karate moves, singing out loud to himself, sometimes intrusive with peers. Patient initially said he would take medication then said he would not take it and refused; said he would get blood draw but then when phlebotomy became refuse saying ... I am not give new my blood... you are going to keep my blood. Later, patient then said he would take Clozaril and Tegretol. Patient difficult with which to engage. -stopped CIWA; not scoring -patient asked for Simethicone -will continue with Clozaril even though patient refusing blood draw; he has history of tolerating clozapine without issue and patient needs medication 11/05 little sleep; remains manic, dancing in hallways; antagonistic to select peers hwoever, pt did take medications (tegretol and clozapine), though it need to be re-offered. 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 Due to jazmine, Getting into verbal altercation and near physical with other peer also having manic episode. Team agreed best for patient to transfer to the other floor. Discussed with patient who agrees. 11/09: somewhat sedated today, jazmine trying to push through but having a hard time. move all clozapine to HS to reduce daytime sedation. otherwise continue current mgmt. 11/10: sobia gets clozapine 150 at HS (had none this morning). otherwise continue prior mgmt. continues to appear sedated in the morning, but behavior in good control. 11/11/24: No issues with sleep or appetite. No constipated. Compliant with meds. Denies side effects. Took Melatonin PRN last night with good effect after waking up for snack. Attended groups, listen to music as coping skills. He reports no issues with any peers on the unit and no one bother him. Denies safety concerns or hallucinations.No changes. Continue with current tx plan. 11/12/24: Patient slept for 7 hours, compliant with medications, organized, calm, pleasant, and cooperative, denies voices, denies safety concerns, visible, attending groups. No behavior issues. Patient is make aware that he will have labs work in the evening. Patient signed 3 day notice yesterday which will be on Wednesday. He would like to return home mom. He agrees to have melatonin scheduled instead of p.r.n. as he take it nightly Plan: CV -15 min safety check. Titrated to Clozaril 150mg at HS; (long hx tolerating this med; will monitor for hypotension) Continue Tegretol 400 mg b.i.d. patient manic: improving Continue with antibiotic vitamin replacement Diagnostics as pt will allow. Encourage milieu involvement as pt recovers. Patient educated on: medication risk/benefits and therapeutic strategies Informed Consent: understands Reason for continued inpatient stay Substantial Risk for: med/psych decompensation Time Spent With Patient Time: Total time managing care of this patient today ____ minutes.
[2024-11-13 07:10] VITALS: BP 132/78; PULSE 120; RESP 120; TEMP 36.3; O2SAT 98
[2024-11-13] MEDS: Throat Lozenge, Medicated LOZENGE 1 LOZENGE MUCOUS MEM ×3 (07:33→11:36)
[2024-11-13] MEDS: Nicotine 21 MG PATCH.TD24 TRANSDERMA (07:33)
--- NOTE | 2024-11-13 07:35 | PC.NURSE ---
requested and received nicotine patch at this time
[2024-11-13 08:50] LABS: Hematocrit 42.3 % (42.0-52.0); Hemoglobin 14.2 g/dl (14.0-18.0); Mean Corpuscular HGB Conc 33.6 g/dl (31.0-36.0); Mean Corpuscular Hemoglobin 33.0 pg (27.0-33.0); Mean Corpuscular Volume 98.4 fL (80.0-98.0); NRBC Abs Auto 0.000 X10*3/uL (0.0-0.012); NRBC Pct Auto 0.0 /100WBC (0.0-0.2); Platelet Count 406 X10*3/uL (160-400); Red Blood Count 4.30 X10*6/uL (4.60-5.80)
[2024-11-13 08:51] LABS: WBC ABN SCTR FOR CBC 1; White Blood Count 9.0 X10*3/uL (4.8-10.8)
[2024-11-13] MEDS: Nicotine Polacrilex Lozenge 4 MG LOZENGE BUCCAL ×3 (09:01→17:56)
[2024-11-13 09:39] LABS: Atypical Lymph Absolute Manual 0.1 x10*3/uL; Atypical Lymphs Percent Manual 1 % (0-6); Band Neutrophils Percent 3 % (3-5); Eosinophils Absolute Manual 0.3 X10*3/uL (0.0-0.4); Eosinophils Percent Manual 3 % (0-4); Lymphocytes Absolute Manual 2.0 X10*3/uL (1.2-4.9); Lymphocytes Percent Manual 22 % (20-40); Metamyelocytes Absolute 0.1 X10*3/uL; Metamyelocytes Percent 1 %; Monocytes Absolute Manual 0.5 X10*3/uL (0.1-1.2); Monocytes Percent Manual 6 % (2-11); Myelocytes Absolute 0.1 X10*/uL; Myelocytes Percent 1 %; Neutrophils Absolute Manual 5.9 X10*3/uL (2.0-8.3); Neutrophils Percent Manual 63 % (45-73); RBC Morphology NORMAL
--- NOTE | 2024-11-13 12:20 | P.PNPSI_ITS ---
Subjective Subjective Date of Service: 11/13/24 Reason For Visit: SECTION 12, SI Interim History: pleasant, cooperative. labs reviewed, tegretol 10.9. planning to discharge to his mother's home. had a difficult call with her today, feels she often sees him as his father, unjustly or without warrant. 3-day up weds. per staff, napping, broad affect. had difficult call with his mother this morning. Mental Status Exam Mental Status Exam Narrative: Appearance: dressed in street clothes Behavior: cooperative Psychomotor: mild hyperactivity Speech: spontaneous, nml rate, incr amount Mood: very well Affect: full range, normo-intense, non-labile SI: none expressed HI: none expressed AH/VH: none expressed Delusions: none expressed Insight/judgment: improving x 2. Diagnostics Vital Signs (24Hr): Vital Signs - 24 hr 11/12/24 20:00 11/13/24 07:10 Temperature 97.6 F 97.4 F Pulse Rate 110 H 120 H Respiratory Rate 16 120 H Blood Pressure 136/73 132/78 Pulse Oximetry 95 98 Oxygen Delivery Method Room Air Room Air BMI result Body Mass Index 39.8 Labs 11/13/24 08:01 11/12/24 21:45 Labs: Laboratory Results - last 48 hr 11/12/24 11/13/24 21:45 08:01 WBC 9.0 RBC 4.30 L Hgb 14.2 Hct 42.3 MCV 98.4 H MCH 33.0 MCHC 33.6 RDW 11.5 Plt Count 406 H D MPV 8.7 L Absolute Nucleated RBC 0.000 Nucleated RBC % (auto) 0.0 Neutrophils % (Manual) 63 Band Neutrophils % 3 Lymphocytes % (Manual) 22 Atypical Lymphs % (Man) 1 Monocytes % (Manual) 6 Eosinophils % (Manual) 3 Metamyelocytes % 1 Myelocytes % 1 Abs Neuts (Manual) 5.9 Lymphocytes # (Manual) 2.0 Atyp Lymphs # (Manual) 0.1 Monocytes # (Manual) 0.5 Eosinophils # (Manual) 0.3 Metamyelocytes # 0.1 Myelocytes # 0.1 Platelet Estimate SLIGHTLY INCREASED Plt Morphology Comment NORMAL RBC Morphology NORMAL Sodium 140 Potassium 4.6 Chloride 104 Carbon Dioxide 25 Anion Gap 16 BUN 11 Creatinine 0.85 Estim Creat Clear Calc 147.7 Estimated GFR > 60 Random Glucose 123 H Calcium 9.2 D Total Bilirubin 0.1 Direct Bilirubin < 0.2 AST 34 ALT 51 H Alkaline Phosphatase 90 Total Protein 7.6 Albumin 4.1 Carbamazepine 10.9 Medications Medications Current Medications Acetaminophen (Acetaminophen 325 Mg Tablet) 650 mg PO Q6H PRN PRN Reason: Headache/Pain, Scale 1-10 Last Admin: 11/11/24 06:52 Dose: 650 mg Al Hydroxide/Mg Hydroxide (Magnesium Hydrox/Alum Hydrox 30 Ml Oral.Susp) 30 ml PO Q6H PRN PRN Reason: Heartburn/Nausea Amoxicillin/Clavulanate Potassium (Amoxicillin/Potassium Clav 875 Mg Tablet) 875 mg PO Q12H [facility] Last Admin: 11/13/24 11:34 Dose: 875 mg Benzocaine (Throat Lozenge, Medicated Lozenge) 1 lozenge MUCOUS MEM Q2H PRN PRN Reason: Sore Throat Last Admin: 11/13/24 11:36 Dose: 1 lozenge Carbamazepine (Carbamazepine 200 Mg Tablet) 400 mg PO BID [facility] Last Admin: 11/13/24 08:34 Dose: 400 mg Chlorpromazine HCl (Chlorpromazine Hcl 100 Mg Tablet) 100 mg PO QID PRN PRN Reason: agitation Last Admin: 11/08/24 08:05 Dose: 100 mg Clozapine (Clozapine 100 Mg Tablet) 150 mg PO BEDTIME [facility] Last Admin: 11/12/24 22:35 Dose: 150 mg Docusate Sodium (Docusate Sodium 100 Mg Capsule) 100 mg PO BID [facility] Last Admin: 11/13/24 08:34 Dose: 100 mg Folic Acid (Folic Acid 1 Mg Tablet) 1 mg PO DAILY [facility] Last Admin: 11/13/24 08:34 Dose: 1 mg Hydroxyzine HCl (Hydroxyzine Hcl 25 Mg Tablet) 25 mg PO Q6H PRN PRN Reason: mild anxiety Last Admin: 11/07/24 02:13 Dose: 25 mg Lisinopril (Lisinopril 20 Mg Tablet) 20 mg PO DAILY [facility]; Protocol Last Admin: 11/13/24 08:34 Dose: 20 mg Magnesium Hydroxide (Milk Of Magnesia 30 Ml Oral.Susp) 30 ml PO DAILY PRN PRN Reason: Constipation Melatonin (Melatonin 3 Mg Tablet) 9 mg PO BEDTIME [facility] Last Admin: 11/12/24 22:34 Dose: 9 mg Multi-Ingred Medicated Throat [place] (Throat [place]kov, Medicated 177 Ml Bottle) 1 spray MUCOUS MEM Q2H PRN PRN Reason: Sore Throat Multivitamins/Vitamin C (Multivitamin Tablet) 1 tab PO DAILY [facility] Last Admin: 11/13/24 08:35 Dose: 1 tab Nicotine (Nicotine 21 Mg Patch.Td24) 21 mg TRANSDERMA DAILY [facility] Last Admin: 11/13/24 07:33 Dose: 21 mg Nicotine Polacrilex (Nicotine Polacrilex Lozenge 4 Mg Lozenge) 4 mg BUCCAL Q2H PRN PRN Reason: Nicotine Cravings Last Admin: 11/13/24 09:01 Dose: 4 mg Senna/Docusate Sodium (Sennosides/Docusate Sodium Tablet) 1 tab PO DAILY [facility] Last Admin: 11/13/24 08:34 Dose: 1 tab Simethicone (Simethicone 80 Mg Tab.Chew) 80 mg PO QIDWMHS PRN PRN Reason: flatulance Thiamine HCl (Thiamine Hcl 100 Mg Tablet) 100 mg PO DAILY [facility] Last Admin: 11/13/24 08:34 Dose: 100 mg Allergies Allergies Allergy/AdvReac Type Severity Reaction Status Date / Time haloperidol (From Haldol) AdvReac Severe dystonia Verified 11/01/24 10:09 Assessment & Plan Assessment & Plan (1) Schizoaffective disorder, bipolar type: Status: Acute Code(s): F25.0 - Schizoaffective disorder, bipolar type (2) Acute psychosis: Status: Acute Code(s): F23 - Brief psychotic disorder (3) Suicidal ideations: Status: Resolved Code(s): R45.851 - Suicidal ideations (4) Homicidal ideation: Status: Resolved Code(s): R45.850 - Homicidal ideations (5) Alcohol use disorder: Status: Acute Code(s): F10.90 - Alcohol use, unspecified, uncomplicated Plan HPI: 29 yo male, to ER with EMS, reporting SI,HI and believes he will be killed. Pt had threatened to kill his mom and suicide by police if she called for help from police. Pt ran from police and CHD team. He was found, outside of [employer] yelling with his shirt removed. Pt last at [facility] 09/22/24 to 09/27/24. Pt told team that he was being followed and felt that something was connected to him. Pt was medicine noncompliant prior to admit and exhibited psychotic symptoms in the ER with response to internal stimuli. He discussed concerns with the devil, reports auditory perceptual alterations. He tells team he has been without sleep or food for days. Lives with mother, step father, brother and sister who are concerned for his well being. Mother tells team pt has been doing poorly for ~72 hours-yelling, threatening to kill her and himself. He has been focused on the devil. Pt was kicking the door and yelling today-neighbors called police. Pt admitted to medicine non compliance. Met with pt and Gary DUNCAN. Pt is a poor historian, with confusion, disoorientation, psychosis and posturing. He attempts to place his hair in a pony tail and struggles. He sits with his head down and is non verbal at times. He answers questions with brief answers, at times without making logical sense. He presents with fear when having to talk with others, has been wandering into others rooms and collecting of belongings. Hospital course: 11/04 Patient manic, dancing in the halls, doing karate moves, singing out loud to himself, sometimes intrusive with peers. Patient initially said he would take medication then said he would not take it and refused; said he would get blood draw but then when phlebotomy became refuse saying ... I am not give new my blood... you are going to keep my blood. Later, patient then said he would take Clozaril and Tegretol. Patient difficult with which to engage. -stopped CIWA; not scoring -patient asked for Simethicone -will continue with Clozaril even though patient refusing blood draw; he has history of tolerating clozapine without issue and patient needs medication 11/05 little sleep; remains manic, dancing in hallways; antagonistic to select peers hwoever, pt did take medications (tegretol and clozapine), though it need to be re-offered. Pt came to speech writer and said he'd continue taking the medications -refusing labs -refusing vitals 11/07: Increase Clozapine to 100 mg HS DC Trazodone Increase Melatonin to 9 mg HS 11/08 Patient remains manic, intrusive, hyperverbal and with limited insight. Due to jazmine, Getting into verbal altercation and near physical with other peer also having manic episode. Team agreed best for patient to transfer to the other floor. Discussed with patient who agrees. 11/09: somewhat sedated today, jazmine trying to push through but having a hard time. move all clozapine to HS to reduce daytime sedation. otherwise continue current mgmt. 11/10: sobia gets clozapine 150 at HS (had none this morning). otherwise continue prior mgmt. continues to appear sedated in the morning, but behavior in good control. 11/11: No issues with sleep or appetite. No constipated. Compliant with meds. Denies side effects. Took Melatonin PRN last night with good effect after waking up for snack. Attended groups, listen to music as coping skills. He reports no issues with any peers on the unit and no one bother him. Denies safety concerns or hallucinations.No changes. Continue with current tx plan. 11/12: Patient slept for 7 hours, compliant with medications, organized, calm, pleasant, and cooperative, denies voices, denies safety concerns, visible, attending groups. No behavior issues. Patient is make aware that he will have labs work in the evening. Patient signed 3 day notice yesterday which will be on Wednesday. He would like to return home mom. He agrees to have melatonin scheduled instead of p.r.n. as he take it nightly 11/13: pleasant, a bit hyperactive but appears tethered to reality. labs reviewed, tegretol level good at 10.9. 3-day up weds, planning to discharge weds. continue current mgmt. Plan: CV -15 min safety check. Titrated to Clozaril 150mg at HS; (long hx tolerating this med; will monitor for hypotension) Continue Tegretol 400 mg b.i.d. patient manic: improving Continue with antibiotic vitamin replacement Diagnostics as pt will allow. Encourage milieu involvement as pt recovers. Reason for continued inpatient stay Substantial Risk for: inability to function and rapid decompensation Time Spent With Patient Time: Total time managing care of this patient today __25__ minutes.
[2024-11-13 20:00] VITALS: BP 120/63; PULSE 110; RESP 14; TEMP 36.6; O2SAT 100
[2024-11-14] MEDS: Nicotine Polacrilex Lozenge 4 MG LOZENGE BUCCAL ×4 (06:29→22:15)
[2024-11-14 07:49] VITALS: BP 127/72; PULSE 120; RESP 18; TEMP 36.5; O2SAT 97
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
[2024-11-14] MEDS: Throat Lozenge, Medicated LOZENGE 1 LOZENGE MUCOUS MEM (12:46)
[2024-11-14 19:50] VITALS: BP 138/83; PULSE 116; RESP 16; TEMP 36.6; O2SAT 97
[2024-11-14 21:15] VITALS: PULSE 99
[2024-11-15] MEDS: Nicotine Polacrilex Lozenge 4 MG LOZENGE BUCCAL ×2 (00:48→06:51)
[2024-11-15 07:30] VITALS: BP 143/77; PULSE 107; RESP 20; TEMP 36.4; O2SAT 97
== END 2024-11-15 09:12 | disposition home or self-care (01) | DRG 750 ==
LOC: HO.ED 17:20 → HO.PM5 17:30 → HO.PADLT16 11-08 12:23
PROVIDERS: Clinical Nurse Specialist Psychiatric/Mental Health, Adult; Admitting Provider Nurse Practitioner Family; Emergency Provider Emergency Medicine Emergency Medical Services; Visit Provider Psychiatry & Neurology Psychiatry
DX: F25.0 Schizoaffective disorder, bipolar type (principal); R45.851 Suicidal ideations; R45.850 Homicidal ideations; F23 Brief psychotic disorder; F10.10 Alcohol abuse, uncomplicated; Z79.899 Other long term (current) drug therapy
CPT/HCPCS: 36415; 80048; 80053; 80061; 80076; 80156; 82248; 83036; 83735; 84443; 85007; 85025; 85027; 85048; 99285; J2250; J2359; S9485

== ENCOUNTER → 2024-11-01 17:26 | Outpatient (BNV) | payer OTHER, SELFPAY | PROVIDERS: Admitting Provider Nurse Practitioner Family; Emergency Provider Emergency Medicine Emergency Medical Services; Visit Provider Clinical Nurse Specialist Psychiatric/Mental Health, Adult | DX: F25.0 Schizoaffective disorder, bipolar type (principal); F23 Brief psychotic disorder; R45.851 Suicidal ideations; R45.850 Homicidal ideations; F10.90 Alcohol use, unspecified, uncomplicated | CPT/HCPCS: 99232 ==

== ENCOUNTER 2024-11-23 10:42 | Emergency (ER) | payer MEDICAID, SELFPAY ==
--- NOTE | 2024-11-23 10:48 | ED_ITS ---
HPI - General Adult General Chief complaint: Psychiatric Symptoms Stated complaint: SEC12/PSYCH EVAL,[employer] FOR SAFETY PER EMS Time Seen by Provider: 11/23/24 10:48 Source: patient, EMS and police Mode of arrival: EMS Limitations: physical limitation (patient acutely psychotic) History of Present Illness ED Provider: Marisa Bonds PA-C HPI narrative: Patient is a 29 year old assigned male at with a history of cannabis use disorder and schizoaffective disorder presenting to the emergency department today with homicidal ideation towards his mother and younger brother. Patient comes via EMS after making homicidal statements towards his brother and his mother. Patient has a history of doing this towards his mother but towards his brother is a new behavior for the patient. Police filled out a section 12 on the patient for psychiatric evaluation. Patient refuses to answer questions, pressured speech, tangential thinking / logic. Related Data Previous Rx's ?Medication ?Instructions ?Recorded clozapine 100 mg tablet 150 mg (1.5 x 100 mg) PO BED TIME 11/14/24 30 days #45 tabs docusate sodium 100 mg capsule 100 mg PO BID 30 days # 60 caps 11/14/24 folic acid 1 mg tablet 1 mg PO DAILY 30 days #30 ta bs 11/14/24 melatonin 5 mg tablet 5 mg PO BEDTIME PRN sleep 30 days 11/14/24 #30 tabs multivitamin (Daily-Zo tablet) 1 tab PO DAILY 30 day s #30 tabs 11/14/24 nicotine (polacrilex) 4 mg buccal 4 mg buccal Q2H PRN Nicotine 11/14/24 lozenge Cravings 30 days #81 ea nicotine 21 mg/24 hr daily 21 mg transdermal DAILY 28 days 11/14/24 transdermal patch #28 ea sennosides 8.6 mg-docusate sodium 1 tab PO DAILY 30 da ys #30 tabs 11/14/24 50 mg tablet (Senna Plus) thiamine mononitrate (vit B1) 100 100 mg PO DAILY 30 d ays #30 tabs 11/14/24 mg tablet Allergies Allergy/AdvReac Type Severity Reaction Status Date / Time haloperidol (From Haldol) AdvReac Severe dystonia Verified 11/23/24 11:24 Review of Systems 2 Constitutional: Constitutional: Reports as per HPI Eyes: Eyes: Reports as per HPI ENT: Reports as per HPI Cardiovascular: Cardiovascular: Reports as per HPI Respiratory: Respiratory: Reports as per HPI Gastrointestinal: Gastrointestinal: Reports as per HPI Genitourinary: Genitourinary: Reports as per HPI Musculoskeletal: Musculoskeletal: Reports as per HPI Integumentary/Breasts: Skin/Breast: Reports as per HPI Neurologic: Reports as per HPI Psychiatric: Psychiatric: Reports as per HPI Endocrine: Endocrine: Reports as per HPI Hematologic/Lymphatic: Hematologic/Lymphatic: Reports as per HPI Allergic/Immunologic: Allergic/Immunologic: Reports as per HPI [facility] Past Medical History Attestation statement: The following information was validated with the patient. Source: old records reviewed and nursing notes reviewed Medical History Agitation Psychosis Schizoaffective disorder, bipolar type Bipolar 1 disorder Alcohol abuse Social History Social History Household Members: Family Household Members Other:: Mother Housing: Apartment Do you presently have visiting nurse or other home services: No Alcohol intake: current Alcohol intake frequency: 3 or more drinks per day Alcohol type: hard liquor Comment: Dr. Campbell Patient Tobacco Use Status: Refuse Tobacco use screen Tobacco use type: Cigarette and Smokeless Tobacco Cigarette Packs Per Day: 1 Cigarettes Per Day: 20.0 Years Smoked: ''a long time'' Smoked in Last 30 Days: No e-Cigarette/Vaping Use: Currently Using Second Hand Smoke Exposure: Yes Use of substances other than those prescribed or required for medical reasons: No Substance Use Type: Marijuana Advance Directives: No Advance Directives Information Provided: No Do you have a plan to hurt others: Feasible service: No Sexual orientation: Straight/Heterosexual Physical Exam ED Vital Signs: Vital Signs - 24 hr 11/23/24 20:10 11/24/24 07:47 11/24/24 11:51 Temperature 97.6 F 98.9 F 98.9 F Pulse Rate 96 101 H 101 H Respiratory Rate 17 14 14 Blood Pressure 174/87 H 137/84 137/84 Pulse Oximetry 98 98 98 Oxygen Delivery Method Room Air Room Air BMI result Body Mass Index 27.4 Const General: cooperative, no acute distress, alert and awake Nutritional Appearance: well nourished Orientation/consciousness: patient oriented x3 HENMT Head: Yes normal to inspection and Yes atraumatic Ears: hearing grossly normal bilaterally and external ears normal General nose exam: Normal external nose present, no nasal discharge noted and no epistaxis Face and sinus: Yes normal facial exam, No abrasion and No laceration Mouth: Normal oral and palatal mucosa present, no drooling and no muffled voice Eyes General: appearance normal, both eyes and all related structures Periorbital: periorbital findings normal Eyelids: Yes eyelids normal Conjunctivae: conjunctivae normal Pupils: Equal, round and reactive pupils present EOM: EOMs intact bilaterally Neck Neck: Yes normal visual inspection and Yes full ROM Resp Effort & Inspection: normal respiratory effort and able to speak in complete sentences Neuro General: patient oriented x3, moves all extremities and CN's II-XI intact bilaterally Cranial nerves: Yes Equal, round and reactive pupils present Cognition (Neuro): normal cognition Extrem General: Yes normal to inspection, Yes full ROM and Yes capillary refill normal Psych Appearance: grossly normal Speech and movement: Pressured speech present and Psychomotor agitation in speech present Affect: Labile affect present Attitude: Belligerent attititude/behavior present Thought process: Illogical thought process present Thought content: Homicidality present Insight: Poor insight present (Psych) Course Reevaluation(s) Reevaluation #1: Time: 07:00 Date: 11/24/24 Provider: Jose Prado MD Patient in physician observation for psychiatric evaluation.? No acute events reported overnight. No current complaints. VS stable.? Patient is in bed search status. Will continue to monitor. Time: 12:05 Date: 11/24/24 Provider: Jose Prado MD Physician observation ended at 12:05. Patient was accepted at [facility] [place] and was transferred by S ambulance on a Section 12. Medications Administered Generic Name Dose Route Start Last Admin Trade Name Freq PRN Reason Stop Dose Admin Carbamazepine 400 mg 11/24/24 10:15 11/24/24 11:14 Carbamazepine 200 Mg Tablet PO Not Given BID FANNIE Docusate Sodium 100 mg 11/23/24 21:00 11/24/24 07:38 Docusate Sodium 100 Mg Capsule PO 100 mg BID FANNIE Administration Folic Acid 1 mg 11/24/24 09:00 11/24/24 07:38 Folic Acid 1 Mg Tablet PO 1 mg DAILY FANNIE Administration Melatonin 6 mg 11/23/24 12:06 11/23/24 21:01 Melatonin 3 Mg Tablet PO 6 mg BEDTIME PRN Administration sleep Multivitamins/Vitamin C 1 tab 11/24/24 09:00 11/24/24 07:42 Multivitamin Tablet PO Not Given DAILY FANNIE Nicotine 21 mg 11/24/24 09:00 11/24/24 07:38 Nicotine 21 Mg Patch.Td24 TRANSDERMA 21 mg DAILY FANNIE Administration Nicotine Polacrilex 4 mg 11/23/24 11:49 11/24/24 09:47 Nicotine Polacrilex Lozenge 4 Mg Lozenge BUCCAL 4 mg Q2H PRN Administration Nicotine Cravings Senna/Docusate Sodium 1 tab 11/24/24 09:00 11/24/24 07:38 Sennosides/Docusate Sodium Tablet PO 1 tab DAILY FANNIE Administration Thiamine HCl 100 mg 11/24/24 09:00 11/24/24 07:38 Thiamine Hcl 100 Mg Tablet PO 100 mg DAILY FANNIE Administration Discontinued Medications Generic Name Dose Route Start Last Admin Trade Name Freq PRN Reason Stop Dose Admin Clozapine 25 mg 11/23/24 21:00 11/23/24 21:01 Clozapine 25 Mg Tablet PO 11/23/24 21:01 25 mg BEDTIME FANNIE Administration Diazepam 10 mg 11/24/24 00:26 11/24/24 00:51 Diazepam 10 Mg/2 Ml Cartridge IM 11/24/24 00:27 10 mg STAT STA Administration Diphenhydramine HCl 50 mg 11/24/24 00:27 11/24/24 00:51 Diphenhydramine Hcl 50 Mg/Ml Vial IM 11/24/24 00:28 50 mg ONCE ONE Administration Haloperidol Lactate 5 mg 11/24/24 00:26 11/24/24 00:51 Haloperidol Lactate 5 Mg/Ml Vial IM 11/24/24 00:27 5 mg ONCE ONE Administration Midazolam HCl 5 mg 11/23/24 20:19 11/23/24 20:40 Midazolam Hcl 5 Mg/Ml Vial IM 11/23/24 20:20 5 mg ONCE ONE Administration Olanzapine 10 mg 11/23/24 11:01 11/23/24 11:37 Olanzapine 10 Mg Vial IM 11/23/24 11:02 Not Given ONCE ONE Olanzapine 10 mg 11/23/24 20:19 11/23/24 20:40 Olanzapine 10 Mg Vial IM 11/23/24 20:20 10 mg ONCE ONE Administration Medical Decision Making Medical Decision Making MDM Narrative: Patient is a 29 year old assigned male at with a history of cannabis use disorder and schizoaffective disorder presenting to the emergency department today with homicidal ideation towards his mother and younger brother. Patient's physical exam was as noted in the physical exam portion of this note and concerning for an acutely psychiatrically decompensated individual / active psychosis / active homicidal ideation. Patient's blood work showed an elevated WBC count of 15.1, AST of 63, and ALT of 46. Patient's LFTs are consistently slightly elevated. Patient's WBC count is likely elevated secondary to stress / excitability rather than an infectious source. Patient's urine is pending. Patient's EKG is pending. Patient refused to participate in ROS or HPI at this time. Patient refusing urine or EKG at this time. Patient evaluated by the CARE team who recommended an inpatient level of psychiatric care and have begun a bed search. Patient placed in observation at 1051. Patient will remain in observation until he is either admitted to our psychiatric unit or transferred to an appropriate psychiatric facility. Differential Diagnosis Differential Diagnoses: The differential diagnosis associated with the presentation includes Psychosis Acute decompensation of mental health Admission/Observation Consideration of admission/observation: Escalation of care including admission/observation considered Patient will either be admitted here [place] [facility] [place] the [place] floor or transferred to an appropriate psychiatric facility. Consult Healthcare Provider Management of the patient was discussed with: Behavioral Health Provider (spoke with the CARE team as noted in the MDM Rationale portion of this note. ) Lab Data [facility] Lab Attestation statement: I reviewed the patient's lab results. My interpretation of these results are in the MDM Rationale portion of this note. 11/23/24 11:34 11/23/24 11:34 Labs: Lab Results 11/23/24 11/24/24 Range/Units 11:34 07:45 WBC 15.1 H (4.8-10.8) X10*3/uL RBC 4.21 L (4.60-5.80) X10*6/uL Hgb 13.8 L (14.0-18.0) g/dl Hct 40.7 L (42.0-52.0) % MCV 96.7 (80.0-98.0) fL MCH 32.8 (27.0-33.0) pg MCHC 33.9 (31.0-36.0) g/dl RDW 11.8 (11.0-16.0) % Plt Count 369 (160-400) X10*3/uL MPV 8.8 L (9.4-12.4) fL Immature Gran % (Auto) 0.7 H (0.0-0.4) % Neut % (Auto) 82.5 H (45-73) % Lymph % (Auto) 10.0 L (20-40) % [place] % (Auto) 6.4 (2-11) % Eos % (Auto) 0.1 (0-4) % Baso % (Auto) 0.3 (0-2) % Lymph # (Auto) 1.5 (1.2-4.9) X10*3/uL [place] # (Auto) 1.0 (0.1-1.2) X10*3/uL Eos # (Auto) 0.0 (0.0-0.4) X10*3/uL Baso # (Auto) 0.0 (0.0-0.2) X10*3/uL Abs Immat Gran (auto) 0.11 H (0.00-0.03) X10*3/uL Absolute Neuts (auto) 12.5 H (2.0-8.3) x10*3/uL Absolute Nucleated RBC 0.000 (0.0-0.012) X10*3/uL Nucleated RBC % (auto) 0.0 (0.0-0.2) /100WBC Sodium 138 (135-145) mmol/L Potassium 3.5 D (3.3-5.1) mmol/L Chloride 104 (96-108) mmol/L Carbon Dioxide 25 (22-29) mmol/L Anion Gap 13 (12-20) BUN 14 (9-16) mg/dL Creatinine 0.82 (0.5-1.4) mg/dL Estim Creat Clear Calc 127.6 Estimated GFR > 60 Random Glucose 85 (60-115) mg/dL Calcium 8.8 (8.4-10.2) mg/dL Total Bilirubin 0.7 (0.0-1.0) mg/dL AST 63 H (5-37) U/L ALT 46 H (0-40) U/L Alkaline Phosphatase 69 (39-117) U/L Total Protein 7.4 (6.5-8.0) g/dL Albumin 4.3 (3.5-5.0) g/dL Urine Color Yellow Urine Appearance Clear Urine pH 6.0 (5.0-9.0) Ur Specific [place] >= 1.030 H (1.005-1.025) Urine Protein Trace (Neg-Trace) mg/dL Urine Glucose (UA) Negative (Negative) mg/dL Urine Ketones Negative (Negative) mg/dL Urine Blood Negative (Negative) Urine Nitrite Negative (Negative) Ur Leukocyte Esterase Negative (Negative) Salicylates < 5.0 L (15-30) mg/dL Urine Opiates Screen Not Detected (Not Detect) Ur Buprenorphine Scrn Not Detected (Not Detect) ng/mL Ur Oxycodone Screen Not Detected (Not Detect) ng/mL Urine Methadone Screen Not Detected (Not Detect) ng/mL Urine Fentanyl Screen Not Detected (Not Detect) Acetaminophen < 3 (<30) mcg/mL Ur Barbiturates Screen Not Detected (Not Detect) Ur Phencyclidine Scrn Not Detected (Not Detect) Ur Amphetamines Screen Not Detected (Not Detect) U Benzodiazepines Scrn POSITIVE H (Not Detect) Urine Cocaine Screen Not Detected (Not Detect) U Marijuana (THC) Screen Not Detected (Not Detect) Ethyl Alcohol < 10 mg/dL Independent Historian Clinical information obtained from an independent historian. History obtained from or confirmed by: EMS (EMS provided additional history.) External Record Review External record reviewed: Inpatient record Critical Care Time Critical Care Time Critical Care Time: Yes Total Critical Care Time: 46 Attestation: I spent 46 minutes of Critical Care Time with this patient. This does not include time spent on separately reported billable procedures. Discharge Plan Discharge Clinical Impression: Psychosis Patient Disposition: Xfer Psychiatric Hosp Transfer Details: [place] Prescriptions: No Action nicotine 21 mg/24 hr Patch 24 Hour 21 mg transdermal DAILY 28 Days Qty: 28 0RF nicotine (polacrilex) 4 mg Lozenge 4 mg buccal Q2H PRN (Reason: Nicotine Cravings) 30 Days Qty: 81 1RF multivitamin [Daily-Zo] Tablet 1 tab PO DAILY 30 Days Qty: 30 0RF clozapine 100 mg Tablet 150 mg PO BEDTIME 30 Days Qty: 45 0RF sennosides-docusate sodium [Senna Plus] 8.6-50 mg Tablet 1 tab PO DAILY 30 Days Qty: 30 0RF docusate sodium 100 mg Capsule 100 mg PO BID 30 Days Qty: 60 0RF folic acid 1 mg Tablet 1 mg PO DAILY 30 Days Qty: 30 0RF thiamine mononitrate (vit B1) 100 mg Tablet 100 mg PO DAILY 30 Days Qty: 30 0RF melatonin 5 mg tablet 5 mg PO BEDTIME PRN (Reason: sleep) 30 Days Qty: 30 0RF Interventions: [place]-Suicide Risk Severity Scale Last Done: 11/24/24 11:14 Acute Care Transfer Worksheet (ED) Last Done: 11/24/24 11:51 Print Language: Czech
[2024-11-23 11:00] VITALS: BP 140/92; PULSE 100; O2SAT 97
--- NOTE | 2024-11-23 11:04 | PC.NURSE ---
Patient wants to kill mother and brother. States she talks to the devil.
[2024-11-23 11:21] VITALS: BP 157/97; PULSE 111; RESP 18; TEMP 36.5; O2SAT 97; BMI 27.4
--- NOTE | 2024-11-23 11:27 | MHC.CARE ---
Pt will be an inpatient bedsearch.
--- NOTE | 2024-11-23 11:37 | PC.NURSE ---
Adi comes to the ER today by ambulance due to increasing disorganized behavior. Pt reporting suicidal ideation with a plan to jump off a bridge or the [employer] parking garage to repent for his sins . Pt is also reporting homicidal ideation towards his mom and brother due to them being taken over by the devil . Pt is extremely disorganized and easily agitated on arrival. Changed over by security and escorted to the pod. Pt yelling and pacing, making odd movements with his hand to describe how the devil is taking over. Pt refused PO Zypexa and did not meet the level of escalation for IM Zyprexa Pt is now resting comfortably on bed, allowed vitals and blood work
[2024-11-23 11:40] LABS: MANUAL DIFF FLAG NO
[2024-11-23 11:43] VITALS: RESP 16
[2024-11-23 11:47] LABS: Hematocrit 40.7 % (42.0-52.0); Hemoglobin 13.8 g/dl (14.0-18.0); Imm Gran Abs Auto 0.11 X10*3/uL (0.00-0.03); Imm Gran Pct Auto 0.7 % (0.0-0.4); Lymphocytes Absolute Auto 1.5 X10*3/uL (1.2-4.9); Mean Corpuscular HGB Conc 33.9 g/dl (31.0-36.0); Mean Corpuscular Hemoglobin 32.8 pg (27.0-33.0); Mean Corpuscular Volume 96.7 fL (80.0-98.0); NRBC Abs Auto 0.000 X10*3/uL (0.0-0.012); NRBC Pct Auto 0.0 /100WBC (0.0-0.2); Platelet Count 369 X10*3/uL (160-400); Red Blood Count 4.21 X10*6/uL (4.60-5.80); White Blood Count 15.1 X10*3/uL (4.8-10.8)
--- NOTE | 2024-11-23 11:53 | PC.NURSE ---
pt currently up standing in his room, laughing and responding to what seems to be auditory hallucinations. He reports that he hears his brother talking to him
[2024-11-23 11:59] LABS: Acetaminophen LAB < 3 mcg/mL (<30); Salicylate < 5.0 mg/dL (15-30)
[2024-11-23 12:01] LABS: Alanine Aminotransferase 46 U/L (0-40); Albumin Level 4.3 g/dL (3.5-5.0); Alkaline Phosphatase 69 U/L (39-117); Anion Gap 13 (12-20); Aspartate Amino Transferase 63 U/L (5-37); Blood Urea Nitrogen 14 mg/dL (9-16); Calcium 8.8 mg/dL (8.4-10.2); Carbon Dioxide 25 mmol/L (22-29); Chloride 104 mmol/L (96-108); Creatinine Clr Calc Pharmacy 127.6; Estimated Glomerular Filt Rate > 60; Potassium 3.5 mmol/L (3.3-5.1); Sodium 138 mmol/L (135-145); Total Protein 7.4 g/dL (6.5-8.0)
--- NOTE | 2024-11-23 12:03 | PC.NURSE ---
Pt unable to participate in EKG due to an increase in auditory hallucinations and responding to internal stimuli
--- NOTE | 2024-11-23 12:04 | PC.NURSE ---
RE: med rec This RN completed med rec with the patient who reports that he took all medications yesterday after being read list of his meds Of note: this RN would not consider patient a reliable historian at this time due to disorganized thought process and inability to recall information
--- NOTE | 2024-11-23 13:27 | PHA.MEDREC ---
Pharmacy Consult ? Medication Reconciliation Pharmacy has reviewed the medication reconciliation done by nursing (who noted that patient is an unreliable historian), and also called and spoke to mother in regards to last taken dose of clozapine. She doesn't think patient has been taking his medications for at least 3 days (he has been disoriented) and cannot confirm the last taken dose of clozapine. Provider Marisa Bonds was notified of the situation and decided to retitrate patient up from base dose of 25 mg at bedtime.
--- OUTSIDE RECORDS SUMMARY | 2024-11-23 17:06 | XMS_ITS | Encounter Summary ---
Author Organization [employer] Address [address] [facility] [address] [place] [address] Care Team Providers Care Drilling Assistant Name Role Phone Unavailable Primary Care Provider Unavailabl e Encounter Details Date Type Department Care Team ([facility] st Contact Info) Description 09/26/2024 Results Follow-Up [facility] [address] [place] [address] Provider, Generic External Data XR Chest 1 [...] as of this encounter Plan of Treatment Upcoming Encounters Date Type Department Care Team (Late st Contact Info) Description 12/19/2024 1:45 PM EDT Office Visit [facility] [address] [place], [place] [phone] Jayne Mccall FNP [address] [place] [address] documented as of this encounter Visit Diagnoses Not on filedocumented in this encounter
--- OUTSIDE RECORDS SUMMARY | 2024-11-23 17:06 | XMS_ITS | Encounter Summary ---
Author Organization [facility] Address [address] [place] [address] [address] [place] [address] Care Team Providers Care Wetlands Technician Name Role Phone Gloria Serrano Primary Care Provider Brianne vailable Encounter Details Date Type Department Care Team (Late st Contact Info) Description 04/13/2022 Abstract [facility] MEDICINE [address] [place] [address] Gloria Serrano FNP Social History Tobacco Use [...] Description 12/19/2024 1:45 PM EDT Office Visit [facility] [address] [place] [address] Jayne Mccall FNP [address] [place] [address] documented as of this encounter Visit Diagnoses Not on filedocumented in this encounter Care Teams Wetlands Technician Relationship Specialty Start Date End Date Gloria Serrano FNP PCP - General Family Medicine 10/26/21 08/20/22 documented as of this encounter
--- OUTSIDE RECORDS SUMMARY | 2024-11-23 17:06 | XMS_ITS | Encounter Summary ---
Author Organization [employer] Address [address] [facility] [address] [place] [address] Care Team Providers Care Backroom Associate Name Role Phone Unavailable Primary Care Provider Unavailabl e Reason for Visit * Reason Onset Date Comments [facility] - New Patient Assistance 10/09/2024 Encounter Details Date Type Department Care Team ([facility] st Contact Info) Description 10/09/2024 Telephone [facility] MEDICINE [address] [place] [address] Gilberto Smith MD [address] [place], [place] [phone] [facility] - New Patient Assistance Social History [...] 10/09/2024 10:19 AM EDT Patient added to [facility] New Patient wait list as 10-09-2024 * Telephone Encounter - Pamela Porras - 10/09/2024 8:30 AM EDT Tc from pt stating [place] is currently out of state and he would like to reschedule apt , pt says he will be back in [place] 10/12. Contact pt at [phone] documented in this encounter Plan of Treatment Upcoming Encounters Date Type Department Care Team (Late st Contact Info) Description 12/19/2024 1:45 PM EDT Office Visit [facility] MED[facility]INE [address] [place] [address] Jayne Mccall FNP [address] [place] [address] documented as of this encounter Visit Diagnoses Not on filedocumented in this encounter
--- OUTSIDE RECORDS SUMMARY | 2024-11-23 17:06 | XMS_ITS | Clinical Summary ---
Author Organization [employer] Address [address] [facility] [address] [place] [address] Care Team Providers Care Insurance Office Manager Name Role Phone Unavailable Primary Care Provider [...] tablet by mouth Once per day. Active Active Problems Problem Noted Date Diagnosed Date Vitreous floaters, bilateral 03/23/2022 Overview (03/23/2022): Care managed by [facility] 02/19/22, found on exam Followup PRN Presbyopia of both eyes 03/23/2022 Overview (03/23/2022): Care managed by [facility] 02/19/22, recommended reading glasses Followup PRN Congenital cataract 03/23/2022 Overview (03/23/2022): Care managed by [facility] 02/19/22, found on exam Followup PRN Bipolar I disorder 02/10/2022 Schizophrenia 02/10/2022 Hypercholesterolemia 11/20/2020 ADHD (attention deficit hyperactivity disorder) 01/11/2014 Overview (03/23/2022): Was on adderral as a child History of substance abuse 05/16/2012 Adjustment disorder 11/29/2006 Posttraumatic stress disorder 11/29/2006 Encounters Date Type Department Care Team Description 10/09/2024 Telephone [facility] [address] [place] [phone] Gilberto Smith MD CHW - New Patient Assistance 10/06/[address] [phone] Felix Covington [place] CHARTPREP 09/28/2024 Patient Outreach [facility] [address] [place] [address] Gilberto Smith MD Transition Of Care (Tcm) (HDF- scheduled and SDOH screening negative and Tobacco screening positive) 09/26/2024 Results Follow-Up [facility] [address] [place] [address] Provider, Generic External Data XR Chest 1 [...] your housing situation today? I have julio chana 09/28/[address] you li [...] 03/05/2022 10:16 AM EST Plan of Treatment Upcoming Encounters Date Type Department Care Team (Late st Contact Info) Description 12/19/2024 1:45 PM EDT Office Visit [facility] [address] [place], [place] [phone] Jayne Mccall, BEAR [address] [place], [place] [phone] Health Maintenance Due Date Last Done Comments Depression Screening 1993 Disability Screening 1993 Alcohol/Substance Use Screening 2005 Family Planning (PISQ) 2008 HPV Vaccines (1 - Male 3-dose series) 2008 Pneumococcal Vaccine: Pediatrics (0 to 5 Years) and At-Risk Patients (6 to 49) Years (2 of 2 - PCV) 03/22/2019 03/22/2018 DTaP/Tdap/Td Vaccines (8 - Td or Tdap) 08/10/2024 08/10/2014, 12/23/2004, 06/06/1997, Additional history exists COVID-19 Vaccine ( - season) 2024 Influenza Vaccine (#1) 2024 , 11/15/2019, 03/22/2018, Additional history exists SDOH Screening 09/28/2025 09/28/2024 Tobacco Screening 09/28/2025 09/28/2024 Lipid Panel 11/18/2025 11/18/2020 Zoster Vaccines (1 of 2) 05/31/2043 RSV Patients and Patients Aged 60 years or older (1 - 1-dose 75+ series) 2068 Hepatitis B Vaccines Completed 1993, 1993, 1993 HIB Vaccines Completed 09/02/1994, 06/1994, 1993, Additional history exists IPV Vaccines Completed 06/06/1997, 07/0 06/1994, 1993, Additional history exists Meningococcal Vaccine [...] PM EDT Narrative 09/25/2024 3:50 PM EDT [address] [address] XRay Report Signed Patient: Adi Candelario MR# : [id number] : 1995 Acct:[id number] Age/Sex: 29 / M ADM Date: 09/22/24 Loc: [id number].[id number] 307-[address]: Jez Radford MD Ordering Physician: Dejah Gonsales DNP Date of Service: 09/25/24 Procedure(s): XR chest 1V Accession Number(s): [id number] cc: [facility]; Dejah Gonsales DNP EXAMINATION: XR CHEST [...] 09/25/24 1547 DD/ 1530 TD/TT: 09/25/24 1540 Field Technical Support Consultant: Procedure Note Donotuseinterpreter, Image - 09/25/[address] [address] XRay Report Signed Patient: Barry CandelarioR# : [id number] : 1995Acct:[id number] Age/Sex: 29 / MADM Date: 09/22/24 Loc: [id number].[id number] 307-[address]: Jez Radford MD Ordering Physician: Dejah Gonsales DNP Date of Service: 09/25/24 Procedure(s): XR chest 1V Accession Number(s): [id number] cc: [facility]; DruDejah DNP EXAMINATION: XR CHEST CLINICAL INFORMATION: Leukocytosis COMPARISON: July 17, 2021 TECHNIQUE: Frontal view of the chest was obtained. FINDINGS: No consolidation, pleural effusion or pneumothorax. Cardiomediastinal silhouette size is normal. Mild S-shaped curvature of the thoracic spine. XR/XR chest 1V IMPRESSION: No acute airspace disease. Electronically signed by: Justen Prado MD 09/25/2024 03:47 PM EDT RP Dictated By: Justen Ott MD Signed By: <Electronically signed by Justen Bryan MDin OV> 09/25/24 1547 DD/ 1530 TD/TT: 09/25/24 1540 Field Technical Support Consultant: us [facility] External Provider IMG XR PROCEDURES Final Result * Slide Review (09/21/2024 2:21 PM EDT) Slide Review VERIFIED [facility] 09/21/2024 2:21 PM EDT 09/21/2024 2:25 PM EDT Narrative [facility] - 09/21/2024 3:40 PM EDT PT TO AGITATED TO OBTAIN LAB SAMPLE. RN AND PROVIDER AWARE. Generic External Data Provider LAB BLOOD ORDERAB LES Final Result [facility] [address] [place] [phone] * Ethanol (09/21/2024 2:21 PM EDT) ETHANOL (MG/DL) IN SER/PLAS <10 mg/dL [facility] Comment:Serum/plasma ethanol results are to be used formedical/treatment purposes only. 09/21/2024 2:21 PM EDT 09/21/2024 2:25 PM EDT Narrative [facility] - 09/21/2024 4:38 PM EDT PT TO AGITATED TO OBTAIN LAB SAMPLE. RN AND PROVIDER AWARE. us Generic External Data Provider LAB BLOOD ORDERAB LES Final Result [facility] [address] [place] [phone] * (ABNORMAL) CBC auto differential (09/21/2024 2:21 PM EDT) White Blood Count 17.2(H) 4.8 - 10.8 X10*3/uL [facility] Red Blood Count 4.28(L) 4.60 - 5.80 X10*6/uL [facility] Hemoglobin 14.7 14.0 - 18.0 g/dl [facility] Hematocrit 41.1(L) 42.0 - 52.0 % [facility] Mean Corpuscular Volume 96.0 80.0 - 98.0 fL [facility] Mean Corpuscular Hemoglobin 34.3(H) 27.0 - 33.0 pg [facility] Mean Corpuscular HGB Conc 35.8 31.0 - 36.0 g/dl [facility] Red Cell Distribution Width 11.6 11.0 - 16.0 % [facility] Platelet Count 320 160 - 400 X10*3/uL [facility] Mean Platelet Volume 9.4 9.4 - 12.4 fL [facility] Neutrophils Percent Auto 67.2 45 - 73 % [facility] Imm Gran Pct Auto 0.8(H) 0.0 - 0.4 % [facility] Lymphocytes Percent Auto 20.1 20 - 40 % [facility] Monocytes Percent Auto 10.6 2 - 11 % [facility] Eosinophils Percent Auto 0.9 0 - 4 % [facility] Basophils Percent Auto 0.4 0 - 2 % [facility] NRBC Pct Auto 0.0 0.0 - 0.2 /100WBC [facility] Neutrophils Absolute Auto 11.6(H) 2.0 - 8.3 x10*3/uL [facility] Imm Gran Abs Auto 0.14(H) 0.00 - 0.03 X10*3/uL [facility] Lymphocytes Absolute Auto 3.5 1.2 - 4.9 X10*3/uL [facility] Monocytes Absolute Auto 1.8(H) 0.1 - 1.2 X10*3/uL [facility] Eosinophils Absolute Auto 0.2 0.0 - 0.4 X10*3/uL [facility] Basophils Absolute Auto 0.1 0.0 - 0.2 X10*3/uL [facility] NRBC Abs Auto 0.000 0.0 - 0.012 X10*3/uL [facility] 09/21/2024 2:21 PM EDT 09/21/2024 2:25 PM EDT [facility] - 09/21/2024 3:40 PM EDT PT TO AGITATED TO OBTAIN LAB SAMPLE. RN AND PROVIDER AWARE. us Generic External Data Provider LAB BLOOD ORDERAB LES Edited Result - Final Performing Organization Address City/[facility]/ZIP Co de Phone Number [facility] [address] [place] [phone] * Acetaminophen level (09/21/2024 2:21 PM EDT) Acetaminophen LAB <3 <30 mcg/mL [facility] 09/21/2024 2:21 PM EDT 09/21/2024 2:25 PM EDT [facility] - 09/21/2024 2:42 PM EDT PT TO AGITATED TO OBTAIN LAB SAMPLE. RN AND PROVIDER AWARE. us Generic External Data Provider LAB BLOOD ORDERAB LES Final Result [facility] [address] [place] [phone] * (ABNORMAL) Salicylate (09/21/2024 2:21 PM EDT) Salicylate <5.0(L) 15 - 30 mg/dL [facility] 09/21/2024 2:21 PM EDT 09/21/2024 2:25 PM EDT Narrative [facility] - 09/21/2024 2:42 PM EDT PT TO AGITATED TO OBTAIN LAB SAMPLE. RN AND PROVIDER AWARE. us Generic External Data Provider LAB BLOOD ORDERAB LES Final Result [facility] [address] [place] [phone] * (ABNORMAL) Comprehensive Metabolic Panel (09/21/2024 2:21 PM EDT) Pathologist [facility] Sodium 140 135 - 145 mmol/L [facility] Potassium 3.3 3.3 - 5.1 mmol/L [facility] Chloride 102 96 - 108 mmol/L [facility] Carbon Dioxide 20(L) 22 - 29 mmol/L [facility] Anion Gap 21(H) 12 - 20 [facility] Urea Nitrogen (BUN) 12 9 - 16 mg/dL [facility] Creatinine, Serum 1.14 0.5 - 1.4 mg/dL [facility] Creatinine Clr Calc Pharmacy 99.0 [facility] Comment:eGFR (calculated fro m the MDRD study equation) and eCrCl(calculated from the Cockcroft-Gault equation) are based ondifferent parameters and may not yield comparable results.If eCrCl result is absurd, please check patient'sheight/weight. Estimated Glomerular Filt Rate >60 [facility] Comment:Chronic Kidney Disea se: Estimated GFR < 60 mL/min/1.47g8Iyqygr Kidney Disease: Estimated GFR < 15 mL/min/1.73m2 Glucose 106 60 - 115 mg/dL [facility] Calcium 9.2 8.4 - 10.2 mg/dL [facility] Bilirubin, Total 0.7 0.0 - 1.0 mg/dL [facility] Aspartate Amino Transferase 190(H) 5 - 37 U/L [facility] Alanine Aminotransferase 106(H) 0 - 40 U/L [facility] Total Protein 7.4 6.5 - 8.0 g/dL [facility] Albumin Level 4.4 3.5 - 5.0 g/dL [facility] Alkaline Phosphatase 88 39 - 117 U/L [facility] 09/21/2024 2:21 PM EDT 09/21/2024 2:25 PM EDT Narrative [facility] - 09/21/2024 4:38 PM EDT PT TO AGITATED TO OBTAIN LAB SAMPLE. RN AND PROVIDER AWARE. us Generic External Data Provider LAB BLOOD ORDERAB LES Final Result [facility] [address] [place] [phone] * SARS-CoV-2 RNA, Influenza A/B, and RSV RNA, Ql NAAT (09/20/2024 2:01 PM EDT) Influenza A PCR NEGATIVE Negative [facility] Influenza B PCR NEGATIVE Negative [facility] Resp Syncy Virus RNA Qual PCR NEGATIVE Negative [facility] SARS COV2 PCR NEGATIVE Negative [facility] Comment:All test results mus t be [...] use by authorized laboratories.Testing performed on the [employer] utilizingreal-time RT-PCR.All SARS CoV2 and positive influenza A/B results arereported to [facility]. 09/20/2024 2:01 PM EDT 09/20/2024 2:38 PM EDT us Generic External Data Provider LAB MICROBIOLOGY - GENERAL ORDERABLES Final Result Performing Organization Address City/[facility]/ZIP Co de Phone Number [facility] [address] [place] [phone] * HEPATITIS C AB W/REFL TO HCV RNA, QN, PCR (11/18/2020 10:02 AM EDT) HEPATITIS C ANTIBODY NON-REACT ANTOINE NON-REACT ANTOINE [facility] INDEX 0.01 <1.00 [facility] Comment: HCV antibody was non-reactive. There is no laboratory evidence of HCV infection. In most cases, no further action is required. However, if recent HCV exposure is suspected, a test for HCV RNA (test code 25167) is suggested. For additional information please refer to http://education.[employer]/faq/PAR31y9 (This link is being provided for informational/ educational purposes only.) 11/18/2020 10:0 2 AM EDT Abyalex Narayan [facility] HISTORICAL/NON ORDERABLE LABS Final Result Performing Organization Address City/[facility] Co de Phone Number [facility] [address] * HIV 1/2 ANTIGEN/ANTIBODY,FOURTH GENERATION W/RFL (11/18/2020 10:02 AM EDT) HIV-1/2 ANTIGEN AND ANTIBODIES, 4TH GENERATION W/ REFLEX NON-REACT ANTOINE NON-REACT ANTOINE [facility] Comment: HIV-1 antigen and HIV-1/HIV-2 [...] purpose. For additional information please refer to http://[employer]/faq/LRQ688 (This link is being provided for informational/ educational purposes only.) The performance of this assay has not been clinically validated in patients less than 2 years old. 11/18/2020 10:0 2 AM EDT us Abyoscar Narayan [facility] LAB BLOOD ORDERABLES Final Res ult [facility] [address] * (ABNORMAL) LIPID PANEL, STANDARD (11/18/2020 10:02 AM EDT) Chol/HDLC Ratio 5.3(H) <5.0 (calc) [facility] Cholesterol, Total 260(H) <200 mg/dL [facility] HDL Cholesterol 49 > OR = 40 mg/dL [facility] LDL Cholesterol 173(H) mg/dL (calc) [facility] Comment: Reference range: <100 Desirable range <100 mg/dL for primary prevention; <70 mg/dL for patients with CHD or diabetic patients with > or = 2 CHD risk factors. LDL-C is now calculated using the Bienvenido-Calero calculation, which is a validated novel method providing better accuracy than the Friedewald equation in the estimation of LDL-C. Bienvenido SS et al. KLARISSA. 2013;310(19): 5513-1888 (http://education.[employer]/faq/FQY945) Non-HDL Cholesterol 211(H) <130 mg/dL (calc) [facility] Comment: For patients with diabetes plus 1 major ASCVD risk factor, treating to a non-HDL-C goal of <100 mg/dL (LDL-C of <70 mg/dL) is considered a therapeutic option. Triglycerides 222(H) <150 mg/dL [facility] Comment: If a non-fasting specimen was collected, consider repeat triglyceride testing on a fasting specimen if clinically indicated. Manohar et al. J. of Clin. Lipidol. 2015;9:129-169. 11/18/2020 10:0 2 AM EDT us Aby Helene [facility] LAB BLOOD ORDERABLES Final Res ult [facility] [address] [place] [address], from Last 3 Months or Most Recently Relevant to Health Maintenance Insurance [facility] STANDARD * Guarantor: Adi Lockhart Account Type Relation to Patient Date of Phone Billing Address Personal/[place] [phone] * Guarantor: Adi Lockhart Account Type Relation to Patient Date of Phone Billing Address Personal/[place] [phone] * Guarantor: Adi Lockhart Account Type Relation to Patient Date of Phone Billing Address Personal/[place] [address]
[2024-11-23] MEDS: Nicotine Polacrilex Lozenge 4 MG LOZENGE BUCCAL (17:56)
[2024-11-23 20:10] VITALS: BP 174/87; PULSE 96; RESP 17; TEMP 36.4; O2SAT 98
[2024-11-23] MEDS: OLANZapine 10 MG VIAL IM (20:40)
--- NOTE | 2024-11-23 20:40 | PC.NURSE ---
Patient is hyperactive, agitated, pacing, making odd movements with his hands, yelling, talking to voices, unable to redirect patient at this time. ED provider informed, patient medicated with Zyprexa 10 mg IM and Versed 5 mg IM per APR.
--- NOTE | 2024-11-23 20:57 | PC.NURSE ---
Patient appears calmer, agreeing to take his bedtime medications. Patient medicated per MAR, no s/s of apparent distress noted.
--- NOTE | 2024-11-23 21:15 | PC.NURSE ---
Patient is calm, currently resting in bed, RR 16, even chest wall rise and fall noted.
--- NOTE | 2024-11-24 00:01 | PC.NURSE ---
Patient is not in apparent distress, 1:1 at bedside.
[2024-11-24] MEDS: diazePAM 10 MG/2 ML CARTRIDGE IM (00:51)
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
--- NOTE | 2024-11-24 02:24 | PC.NURSE ---
Patient remained in a four point restraints for 1 hour 15 minutes, restraints removed at 02:14am. Patient is currently sleeping in bed, RR 16, respirations are even and unalbored.
--- NOTE | 2024-11-24 05:19 | PC.NURSE ---
Patient asleep, RR 14, respirations even and unlabored, safety checks remain in place:15 min safety checks and camera monitoring.
--- NOTE | 2024-11-24 07:05 | PC.NURSE ---
Assumed care of patient at 0645, patient appears to be in no apparent distress this am, ambulating around BH pod with steady gait, patient eating breakfast at this time. Continue plan of care for IPLOC
--- NOTE | 2024-11-24 07:30 | MHC.EDTECH ---
This Tech attempted to collect a urine sample. Pt stated he is trying. Asked for the EKG Pt stated He can't do it. He refused
[2024-11-24] MEDS: Nicotine 21 MG PATCH.TD24 TRANSDERMA (07:38)
[2024-11-24] MEDS: Nicotine Polacrilex Lozenge 4 MG LOZENGE BUCCAL ×2 (07:38→09:47)
--- NOTE | 2024-11-24 07:42 | PC.NURSE ---
Early certified medication aide approved by provider Pt refusing multivitamin I take enough vitamins, I don't need more
[2024-11-24 07:47] VITALS: BP 137/84; PULSE 101; RESP 14; TEMP 37.2; O2SAT 98
[2024-11-24 08:14] LABS: Appearance Urine Clear; Glucose Urine UA Negative (Negative); PH 6.0 (5.0-9.0); Specific Gravity - Urine >= 1.030 (1.005-1.025)
[2024-11-24 08:24] LABS: Cannabinoid Screen Urine Not Detected (Not Detect)
--- NOTE | 2024-11-24 08:25 | PC.NURSE ---
Pt unable to sit still for EKG
[2024-11-24 11:51] VITALS: BP 137/84; PULSE 101; RESP 14; TEMP 37.2; O2SAT 98
== END 2024-11-24 12:38 ==
PROVIDERS: Physician Assistant Medical; Emergency Provider Emergency Medicine Emergency Medical Services
DX: F32.3 Major depressive disorder, single episode, severe with psychotic features (principal); R45.850 Homicidal ideations; F17.200 Nicotine dependence, unspecified, uncomplicated; Z51.81 Encounter for therapeutic drug level monitoring; Z79.899 Other long term (current) drug therapy
CPT/HCPCS: 36415; 80053; 80143; 80179; 80307; 81003; 85025; 96372; 99285; J1200; J1630; J2250; J2359; J3360; S9485

== ENCOUNTER 2024-12-15 23:39 | Inpatient (IN) | payer OTHER, SELFPAY ==
[2024-12-15 23:50] VITALS: BP 166/87; PULSE 82; RESP 20; TEMP 36.6; O2SAT 98; BMI 27.4
[2024-12-16] MEDS: diazePAM 10 MG/2 ML CARTRIDGE IM (00:02)
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
[2024-12-16 00:47] VITALS: BP 148/83; PULSE 91; RESP 20; TEMP 36.6; O2SAT 99
[2024-12-16 00:58] LABS: MANUAL DIFF FLAG NO
[2024-12-16 01:01] LABS: Hematocrit 39.3 % (42.0-52.0); Hemoglobin 13.6 g/dl (14.0-18.0); Imm Gran Abs Auto 0.06 X10*3/uL (0.00-0.03); Imm Gran Pct Auto 0.5 % (0.0-0.4); Lymphocytes Absolute Auto 2.4 X10*3/uL (1.2-4.9); Mean Corpuscular HGB Conc 34.6 g/dl (31.0-36.0); Mean Corpuscular Hemoglobin 32.7 pg (27.0-33.0); Mean Corpuscular Volume 94.5 fL (80.0-98.0); NRBC Abs Auto 0.000 X10*3/uL (0.0-0.012); NRBC Pct Auto 0.0 /100WBC (0.0-0.2); Platelet Count 306 X10*3/uL (160-400); Red Blood Count 4.16 X10*6/uL (4.60-5.80); White Blood Count 11.8 X10*3/uL (4.8-10.8)
--- NOTE | 2024-12-16 01:10 | PC.NURSE ---
LL restraint released by security. will continue to monitor pt and release an additional limb Q15.
[2024-12-16 01:28] LABS: Alanine Aminotransferase 30 U/L (0-40); Albumin Level 3.9 g/dL (3.5-5.0); Anion Gap 12 (12-20); Aspartate Amino Transferase 36 U/L (5-37); Blood Urea Nitrogen 12 mg/dL (9-16); Calcium 8.6 mg/dL (8.4-10.2); Carbon Dioxide 26 mmol/L (22-29); Chloride 106 mmol/L (96-108); Creatinine Clr Calc Pharmacy 134.1; Estimated Glomerular Filt Rate > 60; Potassium 3.3 mmol/L (3.3-5.1); Sodium 141 mmol/L (135-145); Total Protein 6.6 g/dL (6.5-8.0)
[2024-12-16 01:32] VITALS: BP 148/80; PULSE 83; RESP 18; O2SAT 96
--- NOTE | 2024-12-16 01:32 | PC.NURSE ---
restraint removed from RL
--- NOTE | 2024-12-16 02:13 | PC.NURSE ---
assessed for RA and LA restraint removal, pt refused help with urinal and states he will just pee on himself, aggressively yelling, security at bedside. RA and LA restraint continue.
[2024-12-16 02:48] LABS: Alkaline Phosphatase 83 U/L (39-117)
--- NOTE | 2024-12-16 03:37 | PC.NURSE ---
remaining restraints (LA & RA) removed by security. pt thanked staff and rolled over onto his side.
--- OUTSIDE RECORDS SUMMARY | 2024-12-16 04:01 | XMS_ITS | Encounter Summary ---
Author Organization [facility] Address [address] [place] [address] Care Team Providers Care Director It Name Role Phone Talib Watters MD Primary Care Provider Unavail able Reason for Visit * Reason Comments E-prescribe Rx Request Encounter Details Date Type Department Care Team Description 03/04/2020 Refill Adult Medicine [address] [id number] Talib Watters MD E-prescribe Rx Request Social History Tobacco Use Types Packs/Day Years Used Date Smoking Tobacco: Every Day Cigarettes 0.5 5 Alcohol Use Standard Drinks/Week Comments Yes 0 (1 standard drink = 0.6 oz pur e alcohol) Sex Assigned at Date Recorded Not on file documented as of this encounter Miscellaneous Notes * Telephone Encounter - Lucrecia Burton M.A. - 03/06/2020 3:56 PM EST Last filled on 02/09/20, Will you refill? * Telephone Encounter - Ariel Hampton - 03/06/2020 3:52 PM EST Patient would like script to be: E-PRESCRIBED/FAXED TO PHARMACY WHEN WAS THE PATIENT'S LAST APPOINTMENT IN ADULT MEDICINE? 02/09/20 WHEN WAS THE LAST TIME THE PATIENT SAW THEIR PCP? Same as above Does patient have an upcoming appointment? No, Dr. TALIB WATTERS did not indicate in the appointment on 02/09/20 when/if the patient should follow up. (THE MEDICATION REQUESTED IS ON THE MED LIST ABOVE) All of the medications requested were on the CURRENT MEDS list Did you check the Pharmacy information above?: YES Patient wants: 30 -day supply Is this a mail order prescription request ? NO If the refill is from a FAXED refill request what is the RX # listed on the fax? N/A Patients current insurance carrier is: Payor: [employer] FFS / Plan: [employer] / Product Type: MEDICAID RISK documented in this encounter Plan of Treatment Not on file documented as of this encounter Visit Diagnoses Not on filedocumented in this encounter Care Teams Director It Relationship Specialty Start Date End Date Talib Watters MD PCP - General Internal Medicine 01/23/20 documented as of this encounter
--- OUTSIDE RECORDS SUMMARY | 2024-12-16 04:01 | XMS_ITS | Encounter Summary ---
Author Organization [facility] Address [address] [place] [address] Care Team Providers Care Calculus Professor Name Role Phone Channing Mustafa MD Primary Care Provider [phone] Eneida Watters MD Primary Care Provider Unavail able Encounter Details Date Type Department Care Team Description 08/27/2014 Transfer Records Medical Records [address] [place] [id number] Abstract, Provider Social History Tobacco Use Types Packs/Day Years Used Date Smoking Tobacco: Every Day Cigarettes 0.5 5 Alcohol Use Standard Drinks/Week Comments Yes 0 (1 standard drink = 0.6 oz pur e alcohol) Sex Assigned at Date Recorded Not on file documented as of this encounter Nursing Notes * 08/27/2014 12:00 PM EDT >> LISSETH SARKAR Mon Aug 27, 2014 8:04 AM TRANSFER RECORDS FROM [facility] SENT TO CRISTIANA SYED,SURVEYOR GEOD[employer]. documented in this encounter Plan of Treatment Not on file documented as of this encounter Visit Diagnoses Not on filedocumented in this encounter Care Teams Calculus Professor Relationship Specialty Start Date End Date Channing Mustafa MD [address] [place] [address] PCP - General Internal Medicine 12/19/13 01/22/20 Eneida Watters MD [address] [place] [address] PCP - General Internal Medicine 01/23/20 documented as of this encounter
--- OUTSIDE RECORDS SUMMARY | 2024-12-16 04:01 | XMS_ITS | Encounter Summary ---
Author Organization [employer] Address [address] [place] [address] Care Team Providers Care Coloring Machine Operator Name Role Phone Unavailable Primary Care Provider Unavailabl e Reason for Visit * Reason Comments Pre-visit Planning SDOH unable to reach LVM Encounter Details Date Type Department Care Team ([facility] st Contact Info) Description 12/12/2024 Patient Outreach [facility] [address] [place] [address] Jayne Mccall FNP [address] [place] [address] Pre-visit Planning (SDOH unable to reach LVM ) Social History Tobacco Use Types Packs/Day Years [...] AM EDT documented as of this encounter Progress Notes * Mercedes Aleman - 12/12/2024 3:54 PM EDT EDEN Juarez placed outbound call to patient to complete pre-visit planning. No answer at this time. Patient name and were not confirmed. CC left voicemail requesting return call. Direct contactinformation provided. documented in this encounter Plan of Treatment Upcoming Encounters Date Type Department Care Team (Late st Contact Info) Description 12/19/2024 1:45 PM EDT Office Visit [facility] [address] [place] [address] Jayne Mccall FNP [address] [place] [address] documented as of this encounter Visit Diagnoses Not on filedocumented in this encounter
--- OUTSIDE RECORDS SUMMARY | 2024-12-16 04:01 | XMS_ITS | Clinical Summary ---
Author Organization [facility] [employer] [facility] Address [address] [place] [address] Care Team Providers Care Facilities Coordinator Name Role Phone Eneida Watters MD Primary Care Provider Surgical History Surgery Date Site/Laterality Comments OTHER SURGICAL HISTORY PROCEDURE: DENIES PREVIOUS SURGERY Medical History Medical History Date Comments Anxiety 01/11/2014 DX:Anxiety PTSD (post-traumatic stress disorder) 01/11/2014 DX:PTSD (post-traumatic stress disorder) History of substance abuse ( [facility] V24, [facility] V28) 01/11/2014 DX:History of substance abus e ([facility]) ADHD (attention deficit hype ractivity disorder) 01/11/2014 [...] Health Maintenance Due Date Last Done Comments HPV Vaccines (1 - 3-dose SCDM series) 2020 Depression Screening 03/01/2024 DTaP,Tdap,and Td Vaccines (8 - Td or Tdap) 08/10/2024 08/10/2014, 12/23/2004, 06/06/1997, Additional history exists COVID-19 Vaccine ( season) 2024 Influenza Vaccine (#1) 2024 RSV Immunization Adult Patients (1 - 1-dose 75+ series) 2068 Hepatitis [...] age to complete this topic Care Teams Facilities Coordinator Relationship Specialty Start Date End Date Eneida Watters MD PCP - General Internal Medicine 01/23/20
--- OUTSIDE RECORDS SUMMARY | 2024-12-16 04:01 | XMS_ITS | Clinical Summary ---
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/23/2022 Overview (03/23/2022): Care managed by [facility] 02/19/22, found on exam Followup PRN Bipolar I disorder (CMS/HCC) 02/10/2022 Schizophrenia 02/10/2022 Hypercholesterolemia 11/20/2020 ADHD (attention deficit hyperactivity disorder) 01/11/2014 Overview (03/23/2022): Was on adderral as a child History of substance abuse ([facility]) 05/16/2012 Adjustment disorder 11/29/2006 Posttraumatic stress disorder 11/29/2006 Encounters Date Type Department Care Team Description 12/12/2024 Patient Outreach [facility] [address] [place], [place] [phone] Jayne Mccall FNP Pre-visit Planning (SDOH unable to reach [facility] ) 10/09/2024 Telephone [facility] MEDICINE [address] [place] [address] Gilberto Smith MD CHW - New Patient Assistance 10/06/2024 Telephone [facility] [address] [place] [phone] Felix Covington [place] CHARTPREP 09/28/2024 Patient Outreach [facility] [address] [place] [address] Gilberto Smith MD Transition Of Care (Tcm) (HDF- scheduled and SDOH screening negative and Tobacco screening positive) 09/26/2024 Results Follow-Up [facility] [address] [place], [place] [phone] Provider, Generic External Data XR Chest 1 [...] Description 12/19/2024 1:45 PM EDT Office Visit [facility] MEDICINE [address] [place], [place] [phone] Jayne Mccall FNP [address] [place], [place] [phone] Health Maintenance Due Date Last Done Comments [...] 12/23/2004, 06/06/1997, Additional history exists COVID-19 Vaccine (1 - season) 2024 Influenza Vaccine (#1) 2024 [...] Procedure Name Priority Date/Time Associated Diagnosis Comments ETHANOL Routine 12/16/2024 12:48 AM EDT BASIC METABOLIC PANEL Routine 12/16/2024 12:48 AM EDT HEPATIC FUNCTION PANEL Routine 12:48 AM EDT CBC WITH AUTO DIFFERENTIAL Routine 12/16/2024 12:48 AM EDT DRUG MONITOR, PANEL 1, SCREEN, URINE Routine 11/24/2024 7:45 AM EDT URINALYSIS WITH REFLEX TO MICROSCOPIC Routine 11/24/2024 7:45 AM EDT XR CHEST 1 VIEW Routine 09/25/2024 3:30 [...] Recently Relevant to Health Maintenance Results * Ethanol (12/16/2024 12:48 AM EDT) Only the most recent of2 resultswithin the time period is included. Pathologist [facility] ETHANOL (MG/DL) IN SER/PLAS <10 mg/dL [facility] Comment:Serum/plasma ethanol results are to be used formedical/treatment purposes only. 12/16/2024 12:4 8 AM EDT 12/16/2024 12:58 AM EDT us Generic External Data Provider LAB BLOOD ORDERAB LES Final Result [facility] [address] [place] [phone] * (ABNORMAL) CBC auto differential (12/16/2024 12:48 AM EDT) Only the most recent of2 resultswithin the time period is included. White Blood Count 11.8(H) 4.8 - 10.8 X10*3/uL [facility] Red Blood Count 4.16(L) 4.60 - 5.80 X10*6/uL [facility] Hemoglobin 13.6(L) 14.0 - 18.0 g/dl [facility] Hematocrit 39.3(L) 42.0 - 52.0 % [facility] Mean Corpuscular Volume 94.5 80.0 - 98.0 fL [facility] Mean Corpuscular Hemoglobin 32.7 27.0 - 33.0 pg [facility] Mean Corpuscular HGB Conc 34.6 31.0 - 36.0 g/dl [facility] Red Cell Distribution Width 11.8 11.0 - 16.0 % [facility] Platelet Count 306 160 - 400 X10*3/uL [facility] Mean Platelet Volume 8.9(L) 9.4 - 12.4 fL [facility] Neutrophils Percent Auto 68.2 45 - 73 % [facility] Imm Gran Pct Auto 0.5(H) 0.0 - 0.4 % [facility] Lymphocytes Percent Auto 20.2 20 - 40 % [facility] Monocytes Percent Auto 9.7 2 - 11 % [facility] Eosinophils Percent Auto 1.0 0 - 4 % [facility] Basophils Percent Auto 0.4 0 - 2 % [facility] NRBC Pct Auto 0.0 0.0 - 0.2 /100WBC [facility] Neutrophils Absolute Auto 8.1 2.0 - 8.3 x10*3/uL [facility] Imm Gran Abs Auto 0.06(H) 0.00 - 0.03 X10*3/uL [facility] Lymphocytes Absolute Auto 2.4 1.2 - 4.9 X10*3/uL [facility] Monocytes Absolute Auto 1.2 0.1 - 1.2 X10*3/uL [facility] Eosinophils Absolute Auto 0.1 0.0 - 0.4 X10*3/uL [facility] Basophils Absolute Auto 0.1 0.0 - 0.2 X10*3/uL [facility] NRBC Abs Auto 0.000 0.0 - 0.012 X10*3/uL [facility] 12/16/2024 12:4 8 AM EDT 12/16/2024 12:58 AM EDT us Generic External Data Provider LAB BLOOD ORDERAB LES Final Result Performing Organization Address [facility] Co de Phone Number [facility] [address] [place] [phone] * Hepatic Function Panel (12/16/2024 12:48 AM EDT) Bilirubin, Total 0.4 0.0 - 1.0 mg/dL [facility] Bilirubin, Direct 0.1 0.0 - 0.5 mg/dL [facility] Aspartate Amino Transferase 36 5 - 37 U/L [facility] Alanine Aminotransferase 30 0 - 40 U/L [facility] Total Protein 6.6 6.5 - 8.0 g/dL [facility] Albumin Level 3.9 3.5 - 5.0 g/dL [facility] Alkaline Phosphatase 83 39 - 117 U/L [facility] 12/16/2024 12:4 8 AM EDT 12/16/2024 12:58 AM EDT us Generic External Data Provider LAB BLOOD ORDERAB LES Final Result Performing Organization Address [facility] de Phone Number [facility] [address] [place] [phone] * Basic Metabolic Panel (12/16/2024 12:48 AM EDT) Sodium 141 135 - 145 mmol/L [facility] Potassium 3.3 3.3 - 5.1 mmol/L [facility] Chloride 106 96 - 108 mmol/L [facility] Carbon Dioxide 26 22 - 29 mmol/L [facility] Anion Gap 12 12 - 20 [facility] Urea Nitrogen (BUN) 12 9 - 16 mg/dL [facility] Creatinine, Serum 0.78 0.5 - 1.4 mg/dL [facility] Creatinine Clr Calc Pharmacy 134.1 [facility] Comment:eGFR (calculated fro m the MDRD study equation) and eCrCl(calculated from the Cockcroft-Gault equation) are based ondifferent parameters and may not yield comparable results.If eCrCl result is absurd, please check patient'sheight/weight. Estimated Glomerular Filt Rate >60 [facility] Comment:Chronic Kidney Disea se: Estimated GFR < 60 mL/min/1.98d1Bhwdpn Kidney Disease: Estimated GFR < 15 mL/min/1.73m2 Glucose 99 60 - 115 mg/dL [facility] Calcium 8.6 8.4 - 10.2 mg/dL [facility] 12/16/2024 12:4 8 AM EDT 12/16/2024 12:58 AM EDT us Generic External Data Provider LAB BLOOD ORDERAB LES Final Result [facility] [address] [place] [phone] * (ABNORMAL) Urinalysis with Reflex to Microscopic (11/24/2024 7:45 AM EDT) Color Urine Yellow [facility] Appearance Urine Clear [facility] PH 6.0 5.0 - 9.0 [facility] Glucose Urine UA Negative Negative mg/dL [facility] Urine Blood Negative Negative [facility] Specific [place] - Urine >=1.030(H) 1.005 - 1.025 [facility] Urine Protein Trace Neg-Trace mg/dL [facility] Urine Ketones Negative Negative mg/dL [facility] Nitrite Urine Negative Negative [facility] Leukocyte Esterase Urine Negative Negative [facility] 11/24/2024 7:45 AM EDT 11/24/2024 8:10 AM EDT us Generic External Data Provider LAB URINE ORDERAB LES Final Result [facility] [address] [place] [phone] * (ABNORMAL) Drug Monitoring, Panel 1, Screen, Urine (11/24/2024 7:45 AM EDT) Opiate Screen Urine Not Detected Not Detect [facility] Comment:Opiate cut-off is 30 0 ng/mL.Positive results are unconfirmed and should not be used fornon-medical purposes. Barbiturates, Urine Not Detected Not Detect [facility] Comment:Barbiturate cut-off is 200 ng/mL.Positive results are unconfirmed and should not be used fornon-medical purposes. Phencyclidine Screen Urine Not Detected Not Detect [facility] Comment:Phencyclidine cut-of f is 25 ng/mL.Positive results are unconfirmed and should not be used fornon-medical purposes. Amphetamine Screen Urine Not Detected Not Detect [facility] Comment:Amphetamine cut-off is 1000 ng/mL.Positive results are unconfirmed and should not be used fornon-medical purposes. Benzodiazepines Screen Urine POSITIVE(A) Not Detect [facility] Comment:Benzodiazepine cut-o ff is 200 ng/mL.Positive results are unconfirmed and should not be used fornon-medical purposes. Cocaine Screen Urine Not Detected Not Detect [facility] Comment:Cocaine cut-off is 3 00 ng/mL.Positive results are unconfirmed and should not be used fornon-medical purposes. Cannabinoid Screen Urine Not Detected Not Detect [facility] Comment:Cannabinoid cut-off is 50 ng/mL.Positive results are unconfirmed and should not be used fornon-medical purposes. Methadone Screen, Urine Not Detected Not Detect ng/mL [facility] Comment:Methadone cut-off is 300 ng/mL.Positive results are unconfirmed and should not be used fornon-medical purposes. FENTANYL URINE Not Detected Not Detect [facility] Comment:Fentanyl cut-off is 1 ng/mL.Positive results are unconfirmed and should not be used fornon-medical purposes. Oxycodone Urine Screen Not Detected Not Detect ng/mL [facility] Comment:Oxycodone cut-off is 100 ng/mL.Positive results are unconfirmed and should not be used fornon-medical purposes. Buprenorphine Screen Not Detected Not Detect ng/mL [facility] Comment:Buprenorphine cut-of f is 5 ng/mL.Positive results are unconfirmed and should not be used fornon-medical purposes. 11/24/2024 7:45 AM EDT 11/24/2024 8:10 AM EDT us Generic External Data Provider LAB URINE ORDERAB LES Final Result Performing Organization Address City/State/[facility] Co de Phone Number [facility] [address] [place] [phone] * XR Chest 1 View (09/25/2024 3:30 PM EDT) Anatomical Region Laterality Modality Chest Radiographic Jenifer ging 09/25/2024 3:30 PM EDT Narrative 09/25/2024 3:50 PM EDT [address] [address] XRay Report Signed Patient: Adi Candelario MR# : [id number] : 1995 Acct:[id number] Age/Sex: 29 / M ADM Date: 09/22/24 Loc: [id number].[id number] 307-[address]: Jez Radford MD Ordering Physician: Dejah Gonsales DNP Date of Service: 09/25/24 Procedure(s): XR chest 1V Accession Number(s): [id number] cc: [facility]; Dejah Gonsales DNP EXAMINATION: XR CHEST [...] signed by Justen Bryan MD in OV> 09/25/241546 DD/ 153 TD/TT: 09/25/241539 Supervisor Cigar Processing: Procedure Note Donotuseinterpreter, Image - 09/25/[address] [address] XRay Report Signed Patient: Barry CandelarioR# : [id number] : 1995Acct:[id number] Age/Sex: 29 MADM Date: 09/22/24 Loc: [id number].[id number] 307-[address]: Jez Radford MD Ordering Physician: Dejah Gonsales DNP Date of Service: 09/25/24 Procedure(s): XR chest 1V Accession Number(s): [id number] cc: [facility]; Dejah Gonsales DNP EXAMINATION: XR CHEST [...] signed by Justen Bryan MDin OV> 09/25/24 154 DD/ 153 TD/TT: 09/25/241539 Supervisor Cigar Processing: [facility] External Provider IMG XR PROCEDURES Final Result * Slide Review (09/21/2024 2:21 PM EDT) Slide Review VERIFIED [facility] 09/21/2024 2:21 PM EDT 09/21/2024 2:25 PM EDT [facility] - 09/21/2024 3:40 PM EDT PT TO AGITATED TO OBTAIN LAB SAMPLE. RN AND PROVIDER AWARE. us Generic External Data Provider LAB BLOOD ORDERAB LES Final Result Performing Organization Address [facility]/ZIP Co de Phone Number [facility] [address] [place] [phone] * Acetaminophen level (09/21/2024 2:21 PM EDT) Acetaminophen LAB <3 <30 mcg/mL [facility] 09/21/2024 2:21 PM EDT 09/21/2024 2:25 PM EDT [facility] - 09/21/2024 2:42 PM EDT PT TO AGITATED TO OBTAIN LAB SAMPLE. RN AND PROVIDER AWARE. us Generic External Data Provider LAB BLOOD ORDERAB LES Final Result Performing Organization Address [facility] Co de Phone Number [facility] [address] [place] [phone] * (ABNORMAL) Salicylate (09/21/2024 2:21 PM EDT) Salicylate <5.0(L) 15 - 30 mg/dL [facility] 09/21/2024 2:21 PM EDT 09/21/2024 2:25 PM EDT [facility] - 09/21/2024 2:42 PM EDT PT TO AGITATED TO OBTAIN LAB SAMPLE. RN AND PROVIDER AWARE. us Generic External Data Provider LAB BLOOD ORDERAB LES Final Result Performing Organization Address [facility]/ZIP Co de Phone Number [facility] [address] [place] [phone] * (ABNORMAL) Comprehensive Metabolic Panel (09/21/2024 2:21 PM EDT) Sodium 140 135 - 145 mmol/L [facility] Potassium 3.3 3.3 - 5.1 mmol/L [facility] Chloride 102 96 - 108 mmol/L [facility] Carbon Dioxide 20(L) 22 - 29 mmol/L [facility] Anion Gap 21(H) 12 - 20 [facility] Urea Nitrogen (BUN) 12 9 - 16 mg/dL [facility] Creatinine, Serum 1.14 0.5 - 1.4 mg/dL [facility] Creatinine Clr Calc Pharmacy 99.0 [facility] Comment:eGFR (calculated fro m the MDRD study equation) and eCrCl(calculated from the Cockcroft-Gault equation) are based ondifferent parameters and may not yield comparable results.If eCrCl result is absurd, please check patient'sheight/weight. Estimated Glomerular Filt Rate >60 [facility] Comment:Chronic Kidney Disea se: Estimated GFR < 60 mL/min/1.23a2Kkctdl Kidney Disease: Estimated GFR < 15 mL/min/1.73m2 Glucose 106 60 - 115 mg/dL [facility] Calcium 9.2 8.4 - 10.2 mg/dL [facility] Bilirubin, Total 0.7 0.0 - 1.0 mg/dL [facility] Aspartate Amino Transferase 190(H) 5 - 37 U/L [facility] Alanine Aminotransferase 106(H) 0 - 40 U/L [facility] Total Protein 7.4 6.5 - 8.0 g/dL [facility] Albumin Level 4.4 3.5 - 5.0 g/dL [facility] Alkaline Phosphatase 88 39 - 117 U/L [facility] 09/21/2024 2:21 PM EDT 09/21/2024 2:25 PM EDT Narrative [facility] - 09/21/2024 4:38 PM EDT PT TO AGITATED TO OBTAIN LAB SAMPLE. RN AND PROVIDER AWARE. us Generic External Data Provider LAB BLOOD ORDERAB LES Final Result Performing Organization Address [facility] Co de Phone Number [facility] [address] [place] [phone] * SARS-CoV-2 RNA, Influenza A/B, and RSV RNA, Ql NAAT (09/20/2024 2:01 PM EDT) Influenza A PCR NEGATIVE Negative [facility] Influenza B PCR NEGATIVE Negative [facility] Resp Syncy Virus RNA Qual PCR NEGATIVE Negative [facility] SARS COV2 PCR NEGATIVE Negative [facility] Comment:All test results mus t [...] use by authorized laboratories.Testing performed on the [employer] GeneXpert utilizingreal-time RT-PCR.All SARS CoV2 and positive influenza A/B results arereported to [facility]. 09/20/2024 2:01 PM EDT 09/20/2024 2:38 PM EDT us Generic External Data Provider LAB MICROBIOLOGY - GENERAL ORDERABLES Final Result Performing Organization Address [facility] Co de Phone Number [facility] [address] [place] [phone] * HEPATITIS C AB W/REFL TO HCV RNA, QN, PCR (11/18/2020 10:02 AM EDT) HEPATITIS C ANTIBODY NON-REACT ANTOINE NON-REACT ANTOINE [facility] INDEX 0.01 <1.00 [facility] Comment: HCV antibody was non-reactive. There is no laboratory evidence of HCV infection. In most cases, no further action is required. However, if recent HCV exposure is suspected, a test for HCV RNA (test code 72572) is suggested. For additional information please refer to http://Treatful.Inflection/faq/DIQ66n2 (This link is being provided for informational/ educational purposes only.) 11/18/2020 10:0 2 AM EDT Aby Helene CANE FLUME CHUTE OPERATOR HISTORICAL/NON ORDERABLE LABS Final Result Performing Organization Address [facility] de Phone Number [facility] [address] [place] [address], * HIV 1/2 ANTIGEN/ANTIBODY,FOURTH GENERATION W/RFL (11/18/2020 10:02 AM EDT) [facility] HIV-1/2 ANTIGEN AND ANTIBODIES, 4TH GENERATION W/ REFLEX NON-REACT ANTOINE NON-REACT ANTOINE [facility] Comment: HIV-1 antigen and HIV-1/HIV-2 [...] purpose. For additional information please refer to http://Treatful.Inflection/faq/JPG035 (This link is being provided for informational/ educational purposes only.) The performance of this assay has not been clinically validated in patients less than 2 years old. 11/18/2020 10:0 2 AM EDT Aby Helene CANE FLUME CHUTE OPERATOR LAB BLOOD ORDERABLES Final Res ult Performing Organization Address [facility] de Phone Number [facility] [address] [place] [address], [place] * (ABNORMAL) LIPID PANEL, STANDARD (11/18/2020 10:02 AM EDT) Pathologist [facility] Chol/HDLC Ratio 5.3(H) <5.0 (calc) [facility] Cholesterol, Total 260(H) <200 mg/dL [...] LDL-C. Bienvenido SS et al. KLARISSA. 2013;310(19): 9687-4250 (http://education.Bizible/faq/XQU237) Non-HDL Cholesterol 211(H) <130 mg/dL (calc) [facility] Comment: For patients with diabetes plus 1 major ASCVD risk factor, treating to a non-HDL-C goal of <100 mg/dL (LDL-C of <70 mg/dL) is considered a therapeutic option. Triglycerides 222(H) <150 mg/dL [facility] Comment: If a non-fasting specimen was collected, consider repeat triglyceride testing on a fasting specimen if clinically indicated. Manohar et al. J. of Clin. Lipidol. 2015;9:129-169. 11/18/2020 10:0 2 AM EDT us Aby Narayan CANE FLUME CHUTE OPERATOR LAB BLOOD ORDERABLES Final Res ult [facility] [address] from Last 3 Months or Most Recently Relevant to Health Maintenance Insurance [facility] STANDARD * Guarantor: Adi Lockhart Account Type Relation to Patient Date of Phone Billing Address Personal/Family Self [facility] [place] [id number]
--- OUTSIDE RECORDS SUMMARY | 2024-12-16 04:01 | XMS_ITS | Encounter Summary ---
Author Organization [employer] Address [address] 7 [place] [address] Care Team Providers Care Floorperson Name Role Phone Unavailable Primary Care Provider Unavailabl e Reason for Visit * Reason Onset Date Comments CHW - New Patient Assistance 10/09/2024 Encounter Details Date Type Department Care Team ([facility] st Contact Info) Description 10/09/2024 Telephone [facility] MEDICINE [address] [place] [address] Gilberto Smith MD [address] [place], [place] [phone] CHW - New Patient Assistance Social History [...] 10/09/2024 10:19 AM EDT Patient added to [facility] New Patient wait list as 10-09-2024 * Telephone Encounter - Pamela Porras - 10/09/2024 8:30 AM EDT Tc from pt stating [place] is currently out of state and he would like to reschedule apt , pt says he will be back in [place] 10/12. Contact pt at [phone] documented in this encounter Plan of Treatment Upcoming Encounters Date Type Department Care Team (Late st Contact Info) Description 12/19/2024 1:45 PM EDT Office Visit [facility] MEDICINE [address] [place] [address] Jayne Mccall FNP [address] [place] [address] documented as of this encounter Visit Diagnoses Not on filedocumented in this encounter
--- OUTSIDE RECORDS SUMMARY | 2024-12-16 04:01 | XMS_ITS | Encounter Summary ---
Author Organization [employer] [facility] Address [address] [place] [address] [address] [place] [address] Care Team Providers Care Meteorological Aide Name Role Phone Gloria Serrano Primary Care Provider Brianne vailable Encounter Details Date Type Department Care Team (Late st Contact Info) Description 04/13/2022 Abstract [facility] MED[facility]INE [address] [place] [address] Gloria Serrano FNP Social History Tobacco Use [...] Description 12/19/2024 1:45 PM EDT Office Visit [facility] MED[facility]INE [address] [place] [address] Jayne Mccall FNP [address] [place] [address] documented as of this encounter Visit Diagnoses Not on filedocumented in this encounter Care Teams Meteorological Aide Relationship Specialty Start Date End Date Gloria Serrano FNP PCP - General Family Medicine 10/26/21 08/20/22 documented as of this encounter
--- NOTE | 2024-12-16 05:39 | PC.NURSE ---
pt urinated in bed, pt ambulated to bathroom with steady gate.
[2024-12-16 05:54] LABS: Cannabinoid Screen Urine Not Detected (Not Detect)
--- NOTE | 2024-12-16 05:57 | PC.NURSE ---
pt pacing the unit, given sandwich and pudding in room.
--- NOTE | 2024-12-16 06:33 | PC.NURSE ---
nicotine gum entered per Dr basurto. Q2
--- NOTE | 2024-12-16 06:39 | PC.NURSE ---
pt medicated per MAR
--- NOTE | 2024-12-16 07:23 | PC.NURSE ---
Assumed care of patient at 0645, patient ambulating around BH pod with steady gait, maintains poor boundaries with others, entering other patient's rooms, frequently talking loudly next to a sleeping patient despite redirection. Continue plan of care for CARE team krishan
[2024-12-16] MEDS: Nicotine 21 MG PATCH.TD24 TRANSDERMA (08:23)
--- NOTE | 2024-12-16 08:48 | PC.NURSE ---
Pt reports that he took all of his home medications (including his Clozapine yesterday on 12/15)
[2024-12-16] MEDS: diazePAM 10 MG/2 ML CARTRIDGE 5 MG IM (10:15)
[2024-12-16 10:30] VITALS: RESP 22
--- NOTE | 2024-12-16 10:38 | PC.NURSE ---
Late Entry: Pt escalating in intrusive behaviors, entering others rooms, pushing peers personal boundaries, entering conversations that are not his own. Pt beginning to agitate other patients. Dr. Arias came to pod to assess situation, planned for IM
[2024-12-16 11:15] VITALS: RESP 16
--- NOTE | 2024-12-16 12:22 | PC.NURSE ---
RE: Medication Restraint Medications Administered: - Geodon 10mg IM - Benadryl 25mg IM - Valium 5mg IM Physical Hold? Yes Details: Throughout morning between the hours of 7am and 10am patient has been increasing in agitation, pacing around BH pod, remaining extremely intrusive, unable to maintain personal boundaries with other individuals. Pt oscillates between being calm/cooperative and disruptive and agitated. Pt appears to be occasionally responding to internal stimuli and appears to be struggling with delusions regarding miryam and his family. Pt was provided with headphones for music, food/drink as well as consistent staff to walk around with. Pt continued to escalate, entering other patient's rooms, making derogatory comments towards peers, invading personal space. Pt also began elevating his voice, yelling and agitating other patients. Dr. Arias came to bedside to assess, due to patient's escalating behaviors and inability to maintain boundaries with others, plan for IM. Pt was escorted to his room by this RN and security. Pt took IMs in bilateral deltoids with security holding his arms for safety. Pt became verbally aggressive with this RN fuck you, I will fucking kill you, you're a fucking bitch for this, you just want to see me suffer . Pt reassured by this RN that the medication will help with his rapid thought process and is to help him feel calmer. Pt continued to verbally harass this RN, yelling swears and threats. After about 30-45 minutes, pt began calming down, no longer threatening this RN but continues pacing around unit. Pt listening to music at this time
[2024-12-16 14:08] VITALS: BP 153/91; PULSE 98; RESP 20; TEMP 36.1; O2SAT 99
[2024-12-16] MEDS: Nicotine Polacrilex Lozenge 4 MG LOZENGE BUCCAL ×2 (14:20→17:12)
[2024-12-16 14:34] LABS: Appearance Urine Clear; Glucose Urine UA Negative (Negative); PH 6.5 (5.0-9.0); Specific Gravity - Urine 1.015 (1.005-1.025)
--- NOTE | 2024-12-16 20:39 | PC.NURSE ---
Assumed care of patient at 1900, patient appears to be in no apparent distress at this time, seen walking in the hallway back and forth with headphones on- loud at times but easy to direct, respirations even and unlabored. Continue plan of care.
[2024-12-17] VITALS (7 sets, daily range): BP systolic 116–155; BP diastolic 71–85; PULSE 100–117; RESP 16–20; TEMP 36.2–36.4; O2SAT 92–99
--- NOTE | 2024-12-17 03:08 | PC.NURSE ---
RN received report and assumed care of the patient at approx 0245. Pt noted to be sitting in a chair at the table in the common area with eyes closed, respirations even and unlabored with drool noted on his candis. The pt was noted to remain seated until he independently stood, although appearing to be unsteady and began to ambulate through the mileu with his eyes closed. RN suggested that the pt return to his room for safety purposes at which time he began to use foul language and called this RN a bitch before returning to his room. The pt could be noted ripping up magazine pages and throwing them on his floor, crinkling up sherry cracker packages and throwing his milk carton at the door. The pt is unable to be redirected verbally as any time this RN attempted to speak with the patient he would raise his voice and/or curse loudly. JOIE made aware of the pt's escalating behaviors, security present at bedside.
[2024-12-17] MEDS: Nicotine Polacrilex Lozenge 4 MG LOZENGE BUCCAL ×5 (03:49→22:37)
--- NOTE | 2024-12-17 04:43 | PC.NURSE ---
pt frequently asking staff to shower, despite receiving direction and information from staff that patient's are not allowed to shower overnight. Pt has been made aware that he can shower after breakfast in the morning. Pt continues to have brief periods of time where he will lay in his bed but never sleeps before getting up and engaging with staff and/or walking through the pod. The pt also has intermittent episodes where he is loud, staff has to remind him of the time and ask that he lower his voice so he does not disturb the other patients which falls on deaf ears. The pt asked this RN for additional melatonin to assist with sleep and when made aware that he does not have any additional melatonin available/ordered he demanded this RN get him some more. Pt then began to ask what he had available for PRNs and was upset to find out that he does not have medications available aside from his nicotine gum/lozange as far as PRNs go and was informed of when he would next be available to receive any medication... pt returned back to his room briefly without issue. He has been previously provided with food and beverage per his request and staff are ensuring that his needs continue to be met
--- NOTE | 2024-12-17 05:52 | PC.NURSE ---
pt continues to escalate, he was not redirectable with verbal stimuli. Staff had previously provided the pt with food and beverage per his request. Pt slept for a brief moment, approx 15 minutes at most in the bed. He woke independently was noted to once again speak loudly, walk through the pod and disturb other sleeping patients. The pt continuously asked to take a shower and coffee and was informed by staff that he can shower after breakfast and that coffee comes on the breakfast trays which come onto the unit shortly after 0700. The pt began to yell at this RN, again referencing me as a bitch , stating suck my daniel , and other profanities directed towards this RN. The pt refused to return back to his room, stating sedate me bitch . RN outreached MD Jensen at 0530 to make her aware via [employer] of the pt's escalating behaviors and asked for medications. MD Jensen to the POD to discuss the pt's behaviors and to put eyes on him personally. RN, ed techs and security to bedside to medicate the pt per APR. The pt initially said he would take the medications willingly however when security presented in the room to assist for safety purposes as the pt has been known to resist and pull away from needles putting other staff members at risk. Pt became upset, resisted and threatened security. RN administered the IM medication as prescribed
--- NOTE | 2024-12-17 06:07 | PC.NURSE ---
Pt continues to be disrespectful, rude, and refuses to remain in his room/bed despite swaying back and forth and having periods where he has difficulties keeping his eyes open. Staff continue to encourage the pt to lay in his bed for safety purposes but he refuses as he reports this marketing underwriter is not his mother and does not control him. The pt was given something to drink per his request prior to him getting upset and dumping the beverage on the floor at which time he was made aware that he would no longer be getting anything to drink as his needs have been met thus far and his actions/behaviors are uncalled for and inappropriate. The pt did however go to use the restroom freely and was noted to pee in the shower rather than the toilet s/t being upset that he has been told he cannot shower until after breakfast which is standard
--- NOTE | 2024-12-17 07:18 | PC.NURSE ---
Assumed care of patient at 0645, per previous RN, patient remained behavioral throughout the night, required IM restraint at 0550. Pt is drowsy at this time, resting on the edge of the bed, in and out of sleep. This RN attempted multiple times to get patient to lay down, attempted to assist patient to laying position however patient swatted at this RN. Patient remains resting on edge of bed at this time. Continue plan of care for IPLOC
--- NOTE | 2024-12-17 07:41 | PC.NURSE ---
Pt self-repositioned to laying on the bed, this RN covered patient at warm blankets for comfort, now resting sleeping, respirations even and unlabored
[2024-12-17] MEDS: Nicotine 21 MG PATCH.TD24 TRANSDERMA (09:32)
--- NOTE | 2024-12-17 09:38 | PC.NURSE ---
Pt awoke at about 0905, verbally aggressive with staff but able to be redirected. Pt states man, fuck angy, restraining me and fucking shit, I should fucking kill you all . Pt also called another patient an ugly asshole when walking by his room. Pt remains labile
--- NOTE | 2024-12-17 09:47 | PC.NURSE ---
Pt requiring frequent reminders to stay in his room or to himself. Pt has history of poor boundaries
--- NOTE | 2024-12-17 10:24 | PC.NURSE ---
Pt currently listening to music, encouraged to ambulate around his room
[2024-12-17] MEDS: diazePAM 10 MG/2 ML CARTRIDGE 5 MG IM (14:40)
--- NOTE | 2024-12-17 14:57 | PC.NURSE ---
Addendum entered by Kirsten Negrete RN 12/17/24 16:35: Patient slept for about 23 minutes total, woke up and then began threatening staff again Original Note: RE: restraint episode Medications Given: - Droperidol 1.25mg IM - Benadryl 50mg IM - Valium 5mg IM Pt continuing to escalate in behaviors throughout the day, verbally threatening staff, Annie fuck yall up, just wait , ill find where yall live and snap ya necks , Give me two minutes I'll drop each one of you davi Valladares contacted, plan for IM restraint due to escalating behavior and tendency for violent outburts Pt willingly took IMs in bilateral deltoids
--- NOTE | 2024-12-17 18:56 | PHA.MEDREC ---
Pharmacy Consult ? Medication Reconciliation rn has completed the medication reconciliation, [facility] REVIEWED.
--- NOTE | 2024-12-17 19:00 | PC.NURSE ---
This RN assumed pt care @ 1845. Pt a&ox4, no signs of distress. Pt pacing unit. Plan of care ongoing.
--- NOTE | 2024-12-17 19:38 | PC.NURSE ---
Pt requested and given drink and ice Plan of care ongoing.
--- NOTE | 2024-12-17 20:03 | PC.NURSE ---
Pt requested and given items to shower Plan of care ongoing.
--- NOTE | 2024-12-17 22:11 | PC.NURSE ---
Pt requesting meds not be given until 2300. After speaking with pt, pt agreed to take meds now. Pt medicated per [facility] Plan of care ongoing.
--- NOTE | 2024-12-17 22:38 | PC.NURSE ---
Pt requested and given nicotine Plan of care ongoing
--- NOTE | 2024-12-17 23:31 | PC.NURSE ---
pt over care at 23:00, pt sleeping no sign of distress.
--- NOTE | 2024-12-18 00:20 | PC.NURSE ---
medicated per mar.
--- NOTE | 2024-12-18 03:16 | PC.NURSE ---
medicated per mar.
--- NOTE | 2024-12-18 03:37 | PC.NURSE ---
pt given head phone and passing in [address].
--- NOTE | 2024-12-18 04:41 | PC.NURSE ---
pt given pudding and crackers.
--- NOTE | 2024-12-18 05:33 | PC.NURSE ---
pt passing, requesting multiple things
--- NOTE | 2024-12-18 05:39 | PC.NURSE ---
pt given tea and crackers.
--- NOTE | 2024-12-18 07:06 | PC.NURSE ---
Assumed care, report received. Pt is awake, pacing and responding to internal stimuli.
[2024-12-18 07:58] VITALS: BP 145/61; PULSE 83; RESP 20; TEMP 37.3; O2SAT 97
--- NOTE | 2024-12-18 08:30 | ECG_ITS ---
Test Reason : r/o prolonged qt Blood Pressure : */* mmHG Vent. Rate : 127 BPM Atrial Rate : 127 BPM P-R Int : 126 ms QRS Dur : 72 ms QT Int : 292 ms P-R-T Axes : 45 118 52 degrees QTcB Int : 424 ms Sinus tachycardia Right axis deviation Abnormal ECG When compared with ECG of 20-Sep-2024 13:46, Vent. rate has increased by 47 bpm Nonspecific T wave abnormality no longer evident in Anterolateral leads Referred By: Vera Johnson Electronically Signed By: MARIBEL QUIÑONES MD
[2024-12-18] MEDS: Nicotine 21 MG PATCH.TD24 TRANSDERMA (08:45)
--- NOTE | 2024-12-18 09:18 | MHC.EDTECH ---
During EKG patient started to become increasingly upset/agitated regarding his religion preoccupation. Stating God won't take me because I committed blasphemy, even though he knows I love him he won't accept me. This tech spoke with patient for a few minutes and was able to deescalate his increasing agitation. RN aware of conversation.
--- NOTE | 2024-12-18 12:43 | PC.NURSE ---
Pt paces the unit and is talking to peers and staff, he is paranoid and making rude comments. Attempts made to re-direct are made.
[2024-12-18] MEDS: Nicotine Polacrilex Lozenge 4 MG LOZENGE BUCCAL ×2 (12:45→18:49)
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
--- NOTE | 2024-12-18 16:39 | HO.PSYCHPN ---
Subjective Subjective Reason For Visit: decompensated schizoaffective disorder Diagnostics Vital Signs (24Hr): Vital Signs - 24 hr 12/17/24 19:48 12/18/24 07:58 Temperature 97.1 F 99.2 F Pulse Rate 117 H 83 Respiratory Rate 20 20 Blood Pressure 155/85 H 145/61 H Pulse Oximetry 99 97 Oxygen Delivery Method Room Air Room Air BMI result Body Mass Index 27.4 Labs 12/16/24 00:48 12/16/24 00:48 Medications Medications Current Medications Acetaminophen (Acetaminophen 325 Mg Tablet) 650 mg PO Q6H PRN PRN Reason: Headache/Pain, Scale 1-10 Al Hydroxide/Mg Hydroxide (Magnesium Hydrox/Alum Hydrox 30 Ml Oral.Susp) 30 ml PO Q6H PRN PRN Reason: Heartburn/Nausea Clozapine (Clozapine 100 Mg Tablet) 150 mg PO BEDTIME [facility] Last Admin: 12/17/24 22:09 Dose: 150 mg Docusate Sodium (Docusate Sodium 100 Mg Capsule) 100 mg PO BID [facility] Last Admin: 12/18/24 08:45 Dose: 100 mg Folic Acid (Folic Acid 1 Mg Tablet) 1 mg PO DAILY [facility] Last Admin: 12/18/24 08:45 Dose: 1 mg Lorazepam (Lorazepam 1 Mg Tablet) 2 mg PO BID PRN PRN Reason: agitation Magnesium Hydroxide (Milk Of Magnesia 30 Ml Oral.Susp) 30 ml PO DAILY PRN PRN Reason: Constipation Melatonin (Melatonin 3 Mg Tablet) 6 mg PO BEDTIME PRN PRN Reason: sleep Last Admin: 12/18/24 03:20 Dose: 6 mg Multivitamins/Vitamin C (Multivitamin Tablet) 1 tab PO DAILY [facility] Last Admin: 12/18/24 08:45 Dose: 1 tab Nicotine (Nicotine 21 Mg Patch.Td24) 21 mg TRANSDERMA DAILY [facility] Last Admin: 12/18/24 08:45 Dose: 21 mg Nicotine Polacrilex (Nicotine Polacrilex 2 Mg Gum) 2 mg BUCCAL Q2H PRN PRN Reason: Nicotine Cravings Last Admin: 12/18/24 08:46 Dose: 2 mg Nicotine Polacrilex (Nicotine Polacrilex Lozenge 4 Mg Lozenge) 4 mg BUCCAL Q2H PRN PRN Reason: Nicotine Cravings Last Admin: 12/18/24 12:45 Dose: 4 mg Olanzapine (Olanzapine 10 Mg Tablet) 10 mg PO BID PRN PRN Reason: agitation Senna/Docusate Sodium (Sennosides/Docusate Sodium Tablet) 1 tab PO DAILY [facility] Last Admin: 12/18/24 08:45 Dose: 1 tab Thiamine HCl (Thiamine Hcl 100 Mg Tablet) 100 mg PO DAILY [facility] Last Admin: 12/18/24 08:45 Dose: 100 mg Trazodone HCl (Trazodone Hcl 50 Mg Tablet) 50 mg PO BEDTIME MRX1 PRN PRN Reason: Insomnia Allergies Allergies Allergy/AdvReac Type Severity Reaction Status Date / Time haloperidol (From Haldol) AdvReac Severe dystonia Verified 12/16/24 00:15 Assessment & Plan Time Spent With Patient Time: Total time managing care of this patient today ____ minutes.
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
[2024-12-18] MEDS: Throat Lozenge, Medicated LOZENGE 1 LOZENGE MUCOUS MEM ×2 (18:49→21:22)
[2024-12-18 19:01] VITALS: BMI 29.5
[2024-12-18 19:20] VITALS: BP 153/87; PULSE 134; RESP 18; TEMP 36.7; O2SAT 96
[2024-12-19] MEDS: Nicotine Polacrilex Lozenge 4 MG LOZENGE BUCCAL ×8 (01:48→23:30)
[2024-12-19] MEDS: Throat Lozenge, Medicated LOZENGE 1 LOZENGE MUCOUS MEM ×7 (02:16→20:33)
[2024-12-19 07:53] VITALS: BP 142/88; PULSE 110; RESP 20; TEMP 36.3; O2SAT 96
--- NOTE | 2024-12-19 08:00 | ECG_ITS ---
Test Reason : QTc monitoring on antipsycotic Blood Pressure : */* mmHG Vent. Rate : 103 BPM Atrial Rate : 103 BPM P-R Int : 140 ms QRS Dur : 78 ms QT Int : 316 ms P-R-T Axes : 43 110 53 degrees QTcB Int : 413 ms Sinus tachycardia Right axis deviation Abnormal ECG When compared with ECG of 18-Dec-2024 09:03, No significant change was found Referred By: Merari Guadalupe Electronically Signed By: MARIBEL QUIÑONES MD
--- NOTE | 2024-12-19 08:26 | P.CONHOSP_ITS ---
History of Present Illness Data of Consult Service Date: 12/19/24 Primary Care Provider: Unknown Physician HPI Reason for consult: Medical consult 29-year-old male with a past medical history of alcohol use disorder, cannabis disorder, schizoaffective disorder bipolar type presented to the emergency department after being found on the street making suicidal statements, manic and making holiness comments. His blood work revealed mild leukocytosis, very mild anemia, no electrolyte imbalances no evidence of renal or liver dysfunction, urinalysis without evidence of infection. U tox was positive for benzos. On exam he reports a sore throat, and cold symptoms. His white count is elevated at 15.8. Denies difficulty swallowing, reports nasal congestion, denies cough. Denies fever or chills. Does report a right upper tooth pain. States he needs to have a tooth pulled. Review of Systems 2 Review of Systems: Denies any shortness of breath, dizziness, headaches, dysuria, abdominal pain. Reports raw sore throat. PMFSH Medical History Agitation Psychosis Schizoaffective disorder, bipolar type Bipolar 1 disorder Alcohol abuse Social History Household Members: Family Household Members Other:: Mother Housing: Apartment Do you presently have visiting nurse or other home services: No Alcohol intake: current Alcohol intake frequency: 3 or more drinks per day Alcohol type: hard liquor Comment: Dr. Campbell Patient Tobacco Use Status: Never used Tobacco Tobacco use type: Cigarette and Smokeless Tobacco Cigarette Packs Per Day: 1 Cigarettes Per Day: 20.0 Years Smoked: ''a long time'' e-Cigarette/Vaping Use: Currently Using Second Hand Smoke Exposure: Yes Substance Use Type: Marijuana Currently Displaying Signs/Symptoms of Drug Intoxication Withdrawal: No Advance Directives: No Advance Directives Information Provided: Yes Do you have thoughts of harming others: None Do you have a plan to hurt others: No Plan Recently lost weight without trying: No Nutrition Risks: No Nutritional Risk Poor oral hygiene: No service: No Sexual orientation: Straight/Heterosexual Meds Allergies Allergy/AdvReac Type Severity Reaction Status Date / Time haloperidol (From Haldol) AdvReac Severe dystonia Verified 12/16/24 00:15 Active Medications: Current Medications Acetaminophen (Acetaminophen 325 Mg Tablet) 650 mg PO Q6H PRN PRN Reason: Headache/Pain, Scale 1-10 Al Hydroxide/Mg Hydroxide (Magnesium Hydrox/Alum Hydrox 30 Ml Oral.Susp) 30 ml PO Q6H PRN PRN Reason: Heartburn/Nausea Benzocaine (Throat Lozenge, Medicated Lozenge) 1 lozenge MUCOUS MEM Q2H PRN PRN Reason: Sore Throat Last Admin: 12/19/24 04:22 Dose: 1 lozenge Clozapine (Clozapine 25 Mg Tablet) 25 mg PO BID [facility] Last Admin: 12/18/24 23:38 Dose: Not Given Diphenhydramine HCl (Diphenhydramine Hcl 25 Mg Capsule) 50 mg PO Q8H PRN PRN Reason: insomnia/EPS Docusate Sodium (Docusate Sodium 100 Mg Capsule) 100 mg PO BID [facility] Last Admin: 12/18/24 20:33 Dose: 100 mg Folic Acid (Folic Acid 1 Mg Tablet) 1 mg PO DAILY [facility] Last Admin: 12/18/24 08:45 Dose: 1 mg Lorazepam (Lorazepam 1 Mg Tablet) 2 mg PO BID PRN PRN Reason: agitation Magnesium Hydroxide (Milk Of Magnesia 30 Ml Oral.Susp) 30 ml PO DAILY PRN PRN Reason: Constipation Melatonin (Melatonin 3 Mg Tablet) 6 mg PO BEDTIME PRN PRN Reason: sleep Last Admin: 12/19/24 00:53 Dose: 6 mg Multivitamins/Vitamin C (Multivitamin Tablet) 1 tab PO DAILY [facility] Last Admin: 12/18/24 08:45 Dose: 1 tab Nicotine (Nicotine 21 Mg Patch.Td24) 21 mg TRANSDERMA DAILY [facility] Last Admin: 12/18/24 08:45 Dose: 21 mg Nicotine Polacrilex (Nicotine Polacrilex Lozenge 4 Mg Lozenge) 4 mg BUCCAL Q2H PRN PRN Reason: Nicotine Cravings Last Admin: 12/19/24 06:30 Dose: 4 mg Olanzapine (Olanzapine 10 Mg Tablet) 10 mg PO BID PRN PRN Reason: agitation Senna/Docusate Sodium (Sennosides/Docusate Sodium Tablet) 1 tab PO DAILY [facility] Last Admin: 12/18/24 08:45 Dose: 1 tab Thiamine HCl (Thiamine Hcl 100 Mg Tablet) 100 mg PO DAILY [facility] Last Admin: 12/18/24 08:45 Dose: 100 mg Trazodone HCl (Trazodone Hcl 50 Mg Tablet) 50 mg PO BEDTIME MRX1 PRN PRN Reason: Insomnia Physical Exam 2 Vital Signs and Narrative: Vital Signs: Last Vital Signs Temp 97.4 F 12/19/24 07:53 Pulse 110 H 12/19/24 07:53 Resp 20 12/19/24 07:53 BP 142/88 H 12/19/24 07:53 Pulse Ox 96 12/19/24 07:53 O2 Del Method Room Air 12/19/24 07:53 BMI result Body Mass Index 29.5 Alert and oriented X3, able to give good history. Neuro: CN II-X11 intact, no deficits, visual acuity intact EYES: PERRLA, EOM intact ENT: Hearing intact, lips moist. Throat erythematous, no lymphadenopathy. Cardiac: S1 S2 RRR Pulmonary: Lungs clear to auscultation, No increased WOB. Abdominal: BS active in all 4 quadrants, no guarding or tenderness MSK: Strength 5/5 upper and lower extremities : Deferred Extremities: No edema in lower extremities Psych: mood stable, cooperative. Skin: Warm and dry, Intact Results Labs 12/19/24 08:54 12/16/24 00:48 Assessment and Plan (1) Pharyngitis: Status: Acute Plan 29-year-old male with a past medical history listed below admitted to inpatient psych after presenting with jazmine and suicidal statements. Schizoaffective disorder, bipolar type/ Alcohol use disorder/Cannabis disorder Treatment per psychiatric team Pharyngitis Obtain throat swab to rule out strep We will treat empirically with amoxicillin 500 b.i.d. for 10 days due to elevated WBC and symptoms Thank you for allowing me to participate in the care of this patient. Will follow with you, please notify medical provider with any changes in condition or concerns.
[2024-12-19] MEDS: Nicotine 21 MG PATCH.TD24 TRANSDERMA (08:29)
[2024-12-19 09:43] LABS: MANUAL DIFF FLAG NO
[2024-12-19 09:46] LABS: Hematocrit 41.0 % (42.0-52.0); Hemoglobin 13.8 g/dl (14.0-18.0); Imm Gran Abs Auto 0.05 X10*3/uL (0.00-0.03); Imm Gran Pct Auto 0.3 % (0.0-0.4); Lymphocytes Absolute Auto 1.5 X10*3/uL (1.2-4.9); Mean Corpuscular HGB Conc 33.7 g/dl (31.0-36.0); Mean Corpuscular Hemoglobin 32.3 pg (27.0-33.0); Mean Corpuscular Volume 96.0 fL (80.0-98.0); NRBC Abs Auto 0.000 X10*3/uL (0.0-0.012); NRBC Pct Auto 0.0 /100WBC (0.0-0.2); Platelet Count 337 X10*3/uL (160-400); Red Blood Count 4.27 X10*6/uL (4.60-5.80); White Blood Count 15.8 X10*3/uL (4.8-10.8)
[2024-12-19 10:10] LABS: Cholesterol 160 mg/dL (<200); HDL Cholesterol 48 mg/dL (>40); Triglycerides 67 mg/dL (<150)
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
[2024-12-19 20:00] VITALS: BP 132/76; PULSE 123; RESP 20; TEMP 37.1; O2SAT 95
[2024-12-20] MEDS: Throat Lozenge, Medicated LOZENGE 1 LOZENGE MUCOUS MEM ×3 (03:02→19:19)
[2024-12-20 07:28] VITALS: BP 137/70; PULSE 121; RESP 18; TEMP 36.1; O2SAT 96
[2024-12-20] MEDS: Nicotine 21 MG PATCH.TD24 TRANSDERMA (08:52)
[2024-12-20] MEDS: Nicotine Polacrilex Lozenge 4 MG LOZENGE BUCCAL ×3 (08:52→18:38)
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
[2024-12-20 20:00] VITALS: BP 140/63; PULSE 116; RESP 16; TEMP 36.8; O2SAT 98
[2024-12-21] MEDS: Throat Lozenge, Medicated LOZENGE 1 LOZENGE MUCOUS MEM ×2 (02:21→16:38)
[2024-12-21] MEDS: Nicotine Polacrilex Lozenge 4 MG LOZENGE BUCCAL ×4 (03:44→21:08)
[2024-12-21 07:44] VITALS: BP 142/96; PULSE 120; RESP 20; TEMP 36.8; O2SAT 98
[2024-12-21] MEDS: Nicotine 21 MG PATCH.TD24 TRANSDERMA (07:49)
[2024-12-21 09:42] VITALS: BMI 31.1
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
[2024-12-21 21:27] VITALS: BP 154/97; PULSE 113; RESP 18; TEMP 36.5; O2SAT 99
[2024-12-22] MEDS: Throat Lozenge, Medicated LOZENGE 1 LOZENGE MUCOUS MEM ×3 (04:22→18:50)
[2024-12-22] MEDS: Nicotine Polacrilex Lozenge 4 MG LOZENGE BUCCAL ×4 (06:18→20:09)
[2024-12-22 07:26] VITALS: BP 145/85; PULSE 120; RESP 18; TEMP 36.2; O2SAT 97
[2024-12-22] MEDS: Nicotine 21 MG PATCH.TD24 TRANSDERMA (08:51)
[2024-12-22 12:33] LABS: Clozapine (Clozaril) 274 mcg/L
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
[2024-12-22 20:00] VITALS: BP 134/91; PULSE 116; RESP 18; TEMP 36.8; O2SAT 97
[2024-12-23] MEDS: Throat Lozenge, Medicated LOZENGE 1 LOZENGE MUCOUS MEM ×4 (03:47→19:57)
[2024-12-23 07:40] VITALS: BP 153/82; PULSE 115; RESP 16; TEMP 36.4; O2SAT 98
[2024-12-23] MEDS: Nicotine Polacrilex Lozenge 4 MG LOZENGE BUCCAL ×4 (07:41→20:51)
[2024-12-23] MEDS: Nicotine 21 MG PATCH.TD24 TRANSDERMA (08:58)
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
[2024-12-23 20:00] VITALS: BP 149/89; PULSE 108; RESP 18; TEMP 36.6; O2SAT 97
[2024-12-24] MEDS: Throat Lozenge, Medicated LOZENGE 1 LOZENGE MUCOUS MEM ×7 (03:03→22:12)
[2024-12-24] MEDS: Nicotine Polacrilex Lozenge 4 MG LOZENGE BUCCAL ×5 (03:45→20:54)
[2024-12-24 08:00] VITALS: BP 160/92; PULSE 113; RESP 20; TEMP 36.2; O2SAT 99
[2024-12-24] MEDS: Nicotine 21 MG PATCH.TD24 TRANSDERMA (09:34)
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
[2024-12-24 13:40] LABS: Neut%MD 65.5 %; WBCANC 8.8 X10*3/uL
[2024-12-24 20:00] VITALS: BP 129/59; PULSE 120; RESP 17; TEMP 36.7; O2SAT 96
[2024-12-25] MEDS: Throat Lozenge, Medicated LOZENGE 1 LOZENGE MUCOUS MEM ×4 (02:26→12:34)
[2024-12-25] MEDS: Nicotine Polacrilex Lozenge 4 MG LOZENGE BUCCAL ×3 (02:28→09:09)
[2024-12-25 07:50] VITALS: BP 153/96; PULSE 100; RESP 20; TEMP 36.5; O2SAT 99
[2024-12-25] MEDS: Nicotine 21 MG PATCH.TD24 TRANSDERMA (08:16)
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
== END 2024-12-25 13:30 | disposition home or self-care (01) | DRG 750 ==
LOC: HO.ED 12-16 06:13 → HO.PADLT16 12-18 13:28
PROVIDERS: Admitting Provider Psychiatry & Neurology Psychiatry; Emergency Provider Emergency Medicine; Visit Provider Psychiatry & Neurology Psychiatry
DX: F25.0 Schizoaffective disorder, bipolar type (principal); R45.851 Suicidal ideations; J02.9 Acute pharyngitis, unspecified; F10.10 Alcohol abuse, uncomplicated; Z79.899 Other long term (current) drug therapy
CPT/HCPCS: 36415; 80048; 80061; 80076; 80159; 80307; 81003; 83036; 85025; 85048; 87070; 87147; 93005; 99285; J1200; J1790; J2250; J3360; J3486; S9485

== ENCOUNTER → 2024-12-18 08:30 | Outpatient (BNV) | payer MEDICAID, SELFPAY | PROVIDERS: Emergency Provider Emergency Medicine; Visit Provider Internal Medicine Cardiovascular Disease | DX: R00.0 Tachycardia, unspecified (principal) | CPT/HCPCS: 93010 ==

== ENCOUNTER 2024-12-18 13:28 | Outpatient (BNV) | payer MEDICAID, SELFPAY | END 2024-12-19 08:00 | PROVIDERS: Admitting Provider Psychiatry & Neurology Psychiatry; Emergency Provider Emergency Medicine; Visit Provider Internal Medicine Cardiovascular Disease | DX: R00.0 Tachycardia, unspecified (principal) | CPT/HCPCS: 93010 ==

== ENCOUNTER → 2024-12-18 13:28 | Outpatient (BNV) | payer MEDICAID, SELFPAY | PROVIDERS: Admitting Provider Psychiatry & Neurology Psychiatry; Emergency Provider Emergency Medicine; Visit Provider Nurse Practitioner Family | DX: J02.9 Acute pharyngitis, unspecified (principal) | CPT/HCPCS: 99221 ==

== ENCOUNTER → 2024-12-18 13:28 | Outpatient (BNV) | payer OTHER, SELFPAY | PROVIDERS: Admitting Provider Psychiatry & Neurology Psychiatry; Emergency Provider Emergency Medicine; Visit Provider Psychiatry & Neurology Psychiatry | DX: F25.0 Schizoaffective disorder, bipolar type (principal); F10.90 Alcohol use, unspecified, uncomplicated; J02.9 Acute pharyngitis, unspecified | CPT/HCPCS: 99232 ==